=== PATIENT | female | born 1980 | race Two or more races ===

== ENCOUNTER 2016-09-15 18:55 | Emergency (ER) | payer MEDICAID ==
[~2016-09-15] VITALS: Ht 170.2 cm; Wt 88.0 kg
[2016-09-15 20:02] LABS: Urine Bilirubin Negative (Negative); Urine Blood Negative /uL (Negative); Urine Color Yellow (Yellow); Urine Glucose Normal (Normal); Urine Ketone Negative (Negative); Urine Mucus FEW (None Seen); Urine Nitrite Negative (Negative); Urine RBC <1 /hpf (0 - 4); Urine Squamous Epithelial Cell FEW /hpf (<5); Urine Urobilinogen Normal (Negative); Urine pH 6.5 (5.0-8.0)
[2016-09-15 20:29] LABS: Basophils # (auto) 0.1 uL; Basophils % (auto) 0.6 % (0.0-2.0); Eosinophils # (auto) 0.2 uL; Eosinophils % (auto) 1.8 % (0.0-7.0); Hematocrit 40.1 % (36.0-46.0); Lymphocytes # (auto) 4.2 uL; Lymphocytes % (auto) 44.7 % (10.0-50.0); Mean Corpuscular Hemoglobin 27.3 pg (28.0-32.0); Mean Corpuscular Hgb Conc. 32.3 g/dL (32.0-36.0); Mean Corpuscular Volume 84.3 fL (80.0-100.0); Mean Platelet Volume 8.1 fL (7.4-10.4); Monocytes # (auto) 0.6 uL; Monocytes % (auto) 6.9 % (0.0-12.0); Neutrophils # (auto) 4.3 uL; Platelet Count (auto) 305 10^3/uL (140-450); Red Cell Distribution Width 13.1 % (11.6-16.0); White Blood Cell 9.4 10^3/uL (4.4-10.8)
[2016-09-15 21:06] LABS: Albumin 3.6 g/dL (3.4-5.0); BUN/Creatinine Ratio 12.5; Calcium 8.8 mg/dL (8.5-10.1); Potassium 3.8 mmol/L (3.5-5.1)
[2016-09-15 21:08] LABS: Bilirubin, Total 0.2 mg/dL (0.2-1.0); Total Protein 7.2 g/dL (6.4-8.2)
[2016-09-16] MEDS ORDERED: ONDANSETRON HCL 4 MG/2 ML VIAL IV ONE (03:30)
[2016-09-16] MEDS ORDERED: MORPHINE SULFATE 4 MG/ML SYRG IV ONE (03:30)
[2016-09-16] MEDS ORDERED: SODIUM CHLORIDE 0.9% 1,000 ML IV ONE (04:00)
[2016-09-16 05:34] VITALS: BP 100/71
== END 2016-09-16 06:22 | disposition home or self-care (01) ==
LOC: ER 19:07
DX: K29.70 Gastritis, unspecified, without bleeding (principal); J45.909 Unspecified asthma, uncomplicated; M54.9 Dorsalgia, unspecified; G89.29 Other chronic pain; Z90.49 Acquired absence of other specified parts of digestive tract
CPT/HCPCS: 36415; 74176; 80053; 81001; 82150; 83690; 85025; 96361; 96374; 96375; 99285; J2270; J2405

== ENCOUNTER 2016-10-28 19:50 | Emergency (ER) | payer MEDICAID ==
[~2016-10-28] VITALS: Ht 170.2 cm; Wt 88.0 kg
[2016-10-28 21:00] LABS: Basophils # (auto) 0 uL; Basophils % (auto) 0.5 % (0.0-2.0); Eosinophils # (auto) 0.2 uL; Eosinophils % (auto) 2.2 % (0.0-7.0); Hematocrit 37.4 % (36.0-46.0); Hemoglobin 12.6 g/dL (12.2-16.2); Lymphocytes % (auto) 39.6 % (10.0-50.0); Mean Corpuscular Hemoglobin 27.9 pg (28.0-32.0); Mean Corpuscular Hgb Conc. 33.5 g/dL (32.0-36.0); Mean Corpuscular Volume 83.2 fL (80.0-100.0); Mean Platelet Volume 8.1 fL (7.4-10.4); Monocytes # (auto) 0.5 uL; Monocytes % (auto) 6.5 % (0.0-12.0); Neutrophils # (auto) 3.8 uL; Neutrophils % (auto) 51.2 % (37.0-80.0); Platelet Count (auto) 288 10^3/uL (140-450); Red Cell Distribution Width 13.3 % (11.6-16.0); White Blood Cell 7.5 10^3/uL (4.4-10.8)
[2016-10-28 21:23] LABS: INR 1.04 (0.9-1.15); Partial Thromboplastin Time 26.6 sec (22.64-33.71); Prothrombin Time 10.7 sec (9.37-12.3)
[2016-10-28 21:34] LABS: Urine Bilirubin Negative (Negative); Urine Color Yellow (Yellow); Urine Glucose Normal (Normal); Urine Ketone Negative (Negative); Urine Nitrite Negative (Negative); Urine RBC 24 /hpf (0 - 4); Urine Squamous Epithelial Cell FEW /hpf (<5); Urine Urobilinogen Normal (Negative)
[2016-10-28 21:36] LABS: Albumin 3.7 g/dL (3.4-5.0); Alkaline Phosphatase 106 U/L (45-117); Anion Gap 11 (5-15); Aspartate Aminotransferase 14 U/L (15-37); BUN/Creatinine Ratio 17.9; Bilirubin, Total 0.2 mg/dL (0.2-1.0); Blood Urea Nitrogen 12 mg/dL (7-18); Calcium 8.9 mg/dL (8.5-10.1); Carbon Dioxide 26 mmol/L (21-32); Chloride 109 mmol/L (98-107); GFR African American 129 mL/min; GFR Non-African American 106 mL/min; Glucose 103 mg/dL (74-106); Potassium 3.7 mmol/L (3.5-5.1); Sodium 146 mmol/L (136-145); Total Protein 7.1 g/dL (6.4-8.2)
[2016-10-28 21:45] LABS: Urine Blood 2+ /uL (Negative)
[2016-10-29] MEDS ORDERED: ASPirin 81 mg TAB PO ONE (07:00)
[2016-10-29 08:07] VITALS: BP 109/70
[2016-10-29] MEDS ORDERED: METOCLOPRAMIDE HCL 5MG/ml INJ 2ml VIAL IV ONE (08:15)
[2016-10-29] MEDS ORDERED: NALBUPHINE HCL 10 MG/1ml INJECTION IV ONE (08:15)
== END 2016-10-29 08:46 | disposition home or self-care (01) ==
LOC: ER 20:08
DX: R07.89 Other chest pain (principal); J45.909 Unspecified asthma, uncomplicated; E07.9 Disorder of thyroid, unspecified; R42 Dizziness and giddiness; Z79.82 Long term (current) use of aspirin; G89.29 Other chronic pain
CPT/HCPCS: 36415; 71020; 80053; 81001; 81025; 84443; 84484; 85025; 85610; 85730; 93005; 94761; 96374; 96375; 99285; G0434; J2300; J2765

== ENCOUNTER 2017-04-16 21:32 | Emergency (ER) | payer MEDICAID ==
[~2017-04-16] VITALS: Ht 170.2 cm; Wt 88.0 kg
[2017-04-16] MEDS ORDERED: IPRATROPIUM BROM 0.5 MG/2.5ML INH SOL NEB ONE (21:45)
[2017-04-16] MEDS ORDERED: ALBUTEROL SULF 2.5 MG/0.5ML(0.5%) NEB SOLN NEB ONE ×2 (21:45→22:30)
[2017-04-16 22:20] LABS: Basophils # (auto) 0.1 uL; Basophils % (auto) 0.4 % (0.0-2.0); CONDITION Y; Eosinophils # (auto) 0.1 uL; Eosinophils % (auto) 1.2 % (0.0-7.0); Hematocrit 41.7 % (36.0-46.0); Hemoglobin 14.2 g/dL (12.2-16.2); Lymphocytes # (auto) 4.2 uL; Lymphocytes % (auto) 33.6 % (10.0-50.0); Mean Corpuscular Hemoglobin 28.5 pg (28.0-32.0); Mean Corpuscular Volume 83.8 fL (80.0-100.0); Mean Platelet Volume 8.2 fL (7.4-10.4); Monocytes # (auto) 0.7 uL; Monocytes % (auto) 5.3 % (0.0-12.0); Neutrophils # (auto) 7.4 uL; Neutrophils % (auto) 59.5 % (37.0-80.0); Platelet Count (auto) 331 10^3/uL (140-450); Red Cell Distribution Width 13.9 % (11.6-16.0); White Blood Cell 12.4 10^3/uL (4.4-10.8)
[2017-04-16] MEDS ORDERED: DEXAMETHASONE 4 MG TAB PO ONE (22:30)
[2017-04-16 22:39] LABS: BUN/Creatinine Ratio 13.3; Calcium 8.9 mg/dL (8.5-10.1); Potassium 3.8 mmol/L (3.5-5.1)
[2017-04-16 22:42] LABS: Bilirubin, Total 0.2 mg/dL (0.2-1.0); Total Protein 7.9 g/dL (6.4-8.2)
[2017-04-17 01:17] VITALS: BP 126/84
== END 2017-04-17 01:28 | disposition home or self-care (01) ==
LOC: ER 21:34
DX: J45.909 Unspecified asthma, uncomplicated (principal); Z90.49 Acquired absence of other specified parts of digestive tract; E07.9 Disorder of thyroid, unspecified
CPT/HCPCS: 36415; 71020; 80053; 84702; 85025; 94640; 99285; J8540

== ENCOUNTER 2023-03-22 14:35 | Inpatient (IN) | payer MEDICAID ==
[~2023-03-22] VITALS: Ht 157.5 cm; Wt 91.0 kg
[~2023-03-22 14:35] MED LIST: AZIT-74 PO; CYCL-614 PO; DOCU-94 PO; DUPI1INJ SC; EPIN0.3I24 IM; ERGO1CAP12 PO; FAMO40TA7 PO; FERR325T20 PO; FLUT250M2 INH; GABA-1250 PO; IPR002IS NEB; LIDO1PAD55 TOP; MONT-8 PO; PRED20TA2 PO; SENN-105 PO
[2023-03-22] MEDS ORDERED: ALBUTEROL SULF 2.5 MG/0.5ML(0.5%) NEB SOLN ONE (14:53)
[2023-03-22] MEDS ORDERED: SODIUM CHLORIDE 0.9% 1,000 ML IV ONE (15:00)
[2023-03-22] MEDS ORDERED: methylPREDNISolone SOD SUCC 40 MG/ML VL IV ONE (15:00)
[2023-03-22] MEDS ORDERED: ALBUTEROL SULF 2.5 MG/0.5ML(0.5%) NEB SOLN NEB ONE ×2 (15:00→22:30)
[2023-03-22] MEDS ORDERED: IPRATROPIUM BROM 0.5 MG/2.5ML INH SOL NEB ONE (15:00)
[2023-03-22] MEDS ORDERED: FAMOTIDINE (10MG/ML) 2ML VL IV ONE (15:00)
[2023-03-22] MEDS ORDERED: BUDESONIDE (INHALATION) 0.5 MG/2 ML NEB NEB ONE (15:00)
[2023-03-22] MEDS: MAGNESIUM SULFATE 1GM/100ML 100 ML IV SCH ×2 (15:00→16:00)
[2023-03-22] MEDS ORDERED: DexAMETHasone SOD PHOS 10MG/1ML VIAL INJ IV ONE (15:00)
[2023-03-22 15:20] LABS: Base Excess 0.3 mmol/L (-2.0-2.0)
[2023-03-22 15:36] VITALS: PULSE 137; RESP 27; O2SAT 100
[2023-03-22 16:34] LABS: INR 1.08 (0.9-1.15); Partial Thromboplastin Time < 20.0 SEC (24.5-34.5); Prothrombin Time 11.3 sec (9.3-11.8)
[2023-03-22] MEDS ORDERED: MAGNESIUM SULFATE 1GM/100ML 100 ML IV ONE (17:15)
[2023-03-22 18:07] VITALS: BP 137/80; PULSE 122; O2SAT 100
[2023-03-22] MEDS ORDERED: MORPHINE SULFATE INJ 2 MG/ml SYRG IV PRN (18:30)
[2023-03-22] MEDS ORDERED: DOCUSATE SOD 100 MG CAP PO PRN (18:30)
[2023-03-22] MEDS ORDERED: NITROGLYCERIN 0.4 MG SL TAB SL PRN (18:30)
[2023-03-22] MEDS ORDERED: ACETAMINOPHEN 325 MG TAB PO PRN (18:30)
[2023-03-22] MEDS ORDERED: OXYCODONE W/ ACETAMINOPHEN 5/325MG TABLET PO PRN (18:30)
[2023-03-22] MEDS ORDERED: IPRATROPIUM BROM 0.5 MG/2.5ML INH SOL NEB PRN (18:30)
[2023-03-22] MEDS ORDERED: ALBUTEROL SULF 2.5 MG/0.5ML(0.5%) NEB SOLN NEB PRN (18:30)
[2023-03-22 19:15] LABS: Basophils # (auto) 0 10 ^3/uL (0-0.2); Eosinophils # (auto) 0 10 ^3/uL (0-0.8); Monocytes # (auto) 0.1 10 ^3/uL (0-1.3); Neutrophils # (auto) 7.8 10 ^3/uL (1.6-8.6); Neutrophils % (auto) 95.7 % (37.0-80.0)
[2023-03-22 19:18] LABS: Basophils % (auto) 0.2 % (0.0-2.0); Hematocrit 36.8 % (36.0-46.0); Hemoglobin 11.8 g/dL (12.2-16.2); Lymphocytes # (auto) 0.3 10 ^3/uL (0.4-5.4); Lymphocytes % (auto) 3.2 % (10.0-50.0); Mean Corpuscular Hemoglobin 26.4 pg (28.0-32.0); Mean Corpuscular Hgb Conc. 32.2 g/dL (32.0-36.0); Mean Corpuscular Volume 81.8 fL (80.0-100.0); Monocytes % (auto) 0.9 % (0.0-12.0); Nucleated Red Blood Cells % 0.1 %; Red Blood Cells 4.49 10^6/uL (4.0-5.20); Red Cell Distribution Width 17.1 % (11.8-14.3); White Blood Cell 8.1 10^3/uL (4.4-10.8)
[2023-03-22 19:30] VITALS: PULSE 123; RESP 25; O2SAT 100
[2023-03-22 19:39] LABS: Calcium 8.1 mg/dL (8.5-10.1); Potassium 3.2 mmol/L (3.5-5.1)
[2023-03-22 19:42] LABS: Albumin 3.5 g/dL (3.4-5.0); BUN/Creatinine Ratio 7.5 (10.0-20.0)
[2023-03-22 19:45] LABS: Bilirubin, Total 0.2 mg/dL (0.2-1.0); Total Protein 6.7 g/dL (6.4-8.2)
[2023-03-22] MEDS ORDERED: IOHEXOL 350 MG/ML 100ML IJ ONE (20:07)
[2023-03-22 20:11] VITALS: BP 112/76; PULSE 115; O2SAT 100
[2023-03-22 20:44] VITALS: BP 112/76; PULSE 115; RESP 22; TEMP 98.4; O2SAT 100
[2023-03-22] MEDS ORDERED: ERGOCALCIFEROL 50,000 UNIT(1.25MG) CAP PO SCH (21:30)
[2023-03-22] MEDS ORDERED: POTASSIUM CHL 20 Meq TABLET PO ONE (21:30)
[2023-03-22] MEDS ORDERED: ALPRAZolam 0.25 MG TAB PO PRN (21:45)
[2023-03-22] MEDS: FLUTICASONE SALMETEROL IN SCH (22:00)
[2023-03-22 22:11] VITALS: BP 131/84; PULSE 106; O2SAT 100
[2023-03-22] MEDS: CYCLOBENZAPRINE HCL 10 MG TAB PO SCH (22:43)
[2023-03-22] MEDS: GABAPENTIN 300 MG CAP PO SCH (22:43)
[2023-03-22] MEDS: SODIUM CHLOR 0.9% PF (SALINE LOCK) 10ML VIAL/SYR IV SCH (22:44)
[2023-03-23] VITALS (17 sets, daily range): BP systolic 104–129; BP diastolic 59–82; PULSE 82–112; RESP 11–25; TEMP 97.7–98.4; O2SAT 94–100
[2023-03-23] MEDS: OXYCODONE W/ ACETAMINOPHEN 5/325MG TABLET PO PRN ×3 (04:54→21:24)
[2023-03-23] MEDS: SODIUM CHLOR 0.9% PF (SALINE LOCK) 10ML VIAL/SYR IV SCH ×3 (06:07→21:19)
[2023-03-23 06:39] LABS: Potassium 4.6 mmol/L (3.5-5.1)
[2023-03-23 06:48] LABS: Albumin 3.3 g/dL (3.4-5.0); BUN/Creatinine Ratio 8.2 (10.0-20.0); Bilirubin, Total 0.3 mg/dL (0.2-1.0); Calcium 8.2 mg/dL (8.5-10.1)
[2023-03-23] MEDS: FAMOTIDINE 20 MG TAB PO SCH (09:58)
[2023-03-23] MEDS: GABAPENTIN 300 MG CAP PO SCH ×2 (09:59→21:18)
[2023-03-23] MEDS: MONTELUKAST SODIUM 10 MG TAB PO SCH (09:59)
[2023-03-23] MEDS: LIDOCAINE 5% TOPICAL PATCH TOP SCH (09:59)
[2023-03-23] MEDS: CYCLOBENZAPRINE HCL 10 MG TAB PO SCH ×2 (10:00→21:18)
[2023-03-23] MEDS: FLUTICASONE SALMETEROL IN SCH ×2 (10:00→21:19)
[2023-03-23 10:51] LABS: Basophils # (auto) 0 10 ^3/uL (0-0.2); Basophils % (auto) 0.1 % (0.0-2.0); Eosinophils # (auto) 0 10 ^3/uL (0-0.8); Hemoglobin 11.3 g/dL (12.2-16.2); Neutrophils # (auto) 7.3 10 ^3/uL (1.6-8.6); White Blood Cell 8.8 10^3/uL (4.4-10.8)
[2023-03-23 10:53] LABS: Hematocrit 34.8 % (36.0-46.0); Lymphocytes % (auto) 11.3 % (10.0-50.0); Mean Corpuscular Hemoglobin 26.3 pg (28.0-32.0); Mean Corpuscular Hgb Conc. 32.4 g/dL (32.0-36.0); Mean Corpuscular Volume 81.2 fL (80.0-100.0); Monocytes # (auto) 0.5 10 ^3/uL (0-1.3); Neutrophils % (auto) 82.6 % (37.0-80.0); Red Blood Cells 4.28 10^6/uL (4.0-5.20); Red Cell Distribution Width 17.6 % (11.8-14.3)
[2023-03-23] MEDS ORDERED: methylPREDNISolone SOD SUCC 125 MG/2 ML VL IV ONE (11:00)
[2023-03-23] MEDS: cefTRIAXone 1GM/50ML D5W 50 ML IV SCH ×2 (12:51→15:04)
[2023-03-23] MEDS: AZITHROMYCIN 500MG/ 250ML 250 ML IV SCH ×2 (13:00→15:05)
[2023-03-23 15:53] LABS: Urine Bacteria NONE SEEN /hpf (None Seen); Urine Blood Negative /uL (Negative); Urine Clarity Clear (Clear); Urine Color Yellow (Yellow); Urine Mucus FEW (None Seen); Urine Protein, UAD TRACE (Negative); Urine Urobilinogen Normal (Negative); Urine WBC <1 /hpf (0 - 5)
[2023-03-23 15:55] LABS: Urine Specific Gravity > 1.050 (1.001-1.035)
[2023-03-23] MEDS: methylPREDNISolone SOD SUCC 125 MG/2 ML VL IV SCH (22:00)
[2023-03-24] VITALS (8 sets, daily range): BP systolic 115–142; BP diastolic 73–91; PULSE 54–103; RESP 16–18; TEMP 97.6–98.4; O2SAT 94–100
[2023-03-24] MEDS: SODIUM CHLOR 0.9% PF (SALINE LOCK) 10ML VIAL/SYR IV SCH ×3 (06:00→21:53)
[2023-03-24 07:17] LABS: Basophils # (auto) 0 10 ^3/uL (0-0.2); Basophils % (auto) 0.2 % (0.0-2.0); Eosinophils # (auto) 0 10 ^3/uL (0-0.8); Hemoglobin 11.5 g/dL (12.2-16.2); Lymphocytes # (auto) 1.3 10 ^3/uL (0.4-5.4); Lymphocytes % (auto) 12.8 % (10.0-50.0); Monocytes # (auto) 0.3 10 ^3/uL (0-1.3); Neutrophils # (auto) 8.6 10 ^3/uL (1.6-8.6); Nucleated Red Blood Cells % 0.1 %
[2023-03-24 07:19] LABS: Hematocrit 35.1 % (36.0-46.0); Mean Corpuscular Hemoglobin 26.6 pg (28.0-32.0); Mean Corpuscular Hgb Conc. 32.6 g/dL (32.0-36.0); Mean Corpuscular Volume 81.6 fL (80.0-100.0); Monocytes % (auto) 2.8 % (0.0-12.0); Neutrophils % (auto) 84.2 % (37.0-80.0); Red Blood Cells 4.31 10^6/uL (4.0-5.20); Red Cell Distribution Width 17.7 % (11.8-14.3); White Blood Cell 10.3 10^3/uL (4.4-10.8)
[2023-03-24 07:26] LABS: BUN/Creatinine Ratio 18.5 (10.0-20.0); Calcium 8.8 mg/dL (8.5-10.1); Potassium 4.3 mmol/L (3.5-5.1)
[2023-03-24] MEDS: FLUTICASONE SALMETEROL IN SCH (10:00)
[2023-03-24] MEDS: methylPREDNISolone SOD SUCC 125 MG/2 ML VL IV SCH ×2 (10:06→21:55)
[2023-03-24] MEDS: GABAPENTIN 300 MG CAP PO SCH ×2 (10:07→21:54)
[2023-03-24] MEDS: FAMOTIDINE 20 MG TAB PO SCH (10:07)
[2023-03-24] MEDS: CYCLOBENZAPRINE HCL 10 MG TAB PO SCH ×2 (10:08→21:53)
[2023-03-24] MEDS: LIDOCAINE 5% TOPICAL PATCH TOP SCH (10:08)
[2023-03-24] MEDS: MONTELUKAST SODIUM 10 MG TAB PO SCH (10:08)
[2023-03-24] MEDS: OXYCODONE W/ ACETAMINOPHEN 5/325MG TABLET PO PRN ×2 (10:26→21:54)
[2023-03-24] MEDS ORDERED: cefTRIAXone 1GM/50ML D5W 50 ML IV ONE (10:30)
[2023-03-24] MEDS ORDERED: AZITHROMYCIN 500MG/ 250ML 250 ML IV ONE (11:30)
[2023-03-24 14:04] LABS: Basophils # (auto) 0 10 ^3/uL (0-0.2); Eosinophils # (auto) 0 10 ^3/uL (0-0.8); Lymphocytes # (auto) 1.2 10 ^3/uL (0.4-5.4); Mean Corpuscular Hgb Conc. 31.8 g/dL (32.0-36.0); Monocytes # (auto) 0.2 10 ^3/uL (0-1.3); Neutrophils # (auto) 10.4 10 ^3/uL (1.6-8.6)
[2023-03-24 14:06] LABS: Hematocrit 37.7 % (36.0-46.0); Mean Corpuscular Hemoglobin 26.2 pg (28.0-32.0); Mean Corpuscular Volume 82.5 fL (80.0-100.0); Monocytes % (auto) 1.5 % (0.0-12.0); Neutrophils % (auto) 88.5 % (37.0-80.0); Nucleated Red Blood Cells % 0.1 %; Red Blood Cells 4.57 10^6/uL (4.0-5.20); Red Cell Distribution Width 17.4 % (11.8-14.3); White Blood Cell 11.7 10^3/uL (4.4-10.8)
[2023-03-25] VITALS (7 sets, daily range): BP systolic 121–140; BP diastolic 72–94; PULSE 47–65; RESP 17–18; TEMP 36.7; O2SAT 92–100
[2023-03-25 05:18] LABS: BUN/Creatinine Ratio 22.7 (10.0-20.0); Calcium 8.4 mg/dL (8.5-10.1); Potassium 4.2 mmol/L (3.5-5.1)
[2023-03-25] MEDS: SODIUM CHLOR 0.9% PF (SALINE LOCK) 10ML VIAL/SYR IV SCH ×2 (06:00→13:41)
[2023-03-25] MEDS ORDERED: cefTRIAXone 1GM/50ML D5W 50 ML IV SCH (09:00)
[2023-03-25] MEDS: FAMOTIDINE 20 MG TAB PO SCH (09:53)
[2023-03-25] MEDS: MONTELUKAST SODIUM 10 MG TAB PO SCH (09:53)
[2023-03-25] MEDS: LIDOCAINE 5% TOPICAL PATCH TOP SCH (09:53)
[2023-03-25] MEDS: GABAPENTIN 300 MG CAP PO SCH (09:53)
[2023-03-25] MEDS: CYCLOBENZAPRINE HCL 10 MG TAB PO SCH (09:54)
[2023-03-25] MEDS: methylPREDNISolone SOD SUCC 125 MG/2 ML VL IV SCH (09:57)
[2023-03-25] MEDS: OXYCODONE W/ ACETAMINOPHEN 5/325MG TABLET PO PRN (09:58)
[2023-03-25] MEDS ORDERED: AZITHROMYCIN 500MG/ 250ML 250 ML IV SCH (10:00)
[2023-03-25] MEDS ORDERED: PRED20TA2 PO (11:07)
[2023-03-25] MEDS ORDERED: AMOX500T86 PO (11:08)
== END 2023-03-25 16:00 | disposition home or self-care (01) | DRG 139 ==
LOC: ER 14:35 → TELE 18:34 → DOU IN ICU 03-23 06:36 → CENTRAL 03-23 13:57 → TELE-CENTR 03-23 14:14
PROVIDERS: ADMIT Internal Medicine Pulmonary Disease; ATTEND Internal Medicine Pulmonary Disease
PROC: 5A09357 Assistance with Respiratory Ventilation, Less than 24 Consecutive Hours, Continuous Positive Airway Pressure (ICD-10-PCS; principal; 2023-03-22)
DX: J18.9 Pneumonia, unspecified organism (principal); J96.01 Acute respiratory failure with hypoxia; J45.902 Unspecified asthma with status asthmaticus; E03.9 Hypothyroidism, unspecified; E87.6 Hypokalemia; E11.65 Type 2 diabetes mellitus with hyperglycemia; E66.01 Morbid (severe) obesity due to excess calories; G89.4 Chronic pain syndrome; Z68.36 Body mass index [BMI] 36.0-36.9, adult; Z90.49 Acquired absence of other specified parts of digestive tract
CPT/HCPCS: 36415; 36600; 71045; 71275; 80048; 80053; 81001; 82805; 83735; 83880; 84484; 85025; 85379; 85610; 85730; 87081; 94640; 94644; 94660; 96361; 96365; 96366; 96375; G0378; J0696; J1100; J3490

== ENCOUNTER 2023-04-10 18:14 | Inpatient (IN) | payer MEDICAID ==
[~2023-04-10] VITALS: Ht 172.7 cm; Wt 91.9 kg
[2023-04-10] VITALS (10 sets, daily range): BP systolic 115; BP diastolic 77; PULSE 112–131; RESP 20–22; O2SAT 97–100
[~2023-04-10 18:14] MED LIST changes: +AMOX500T86 PO; -AZIT-74 PO
[2023-04-10] MEDS ORDERED: DexAMETHasone SOD PHOS 10MG/1ML VIAL INJ IV ONE (18:15)
[2023-04-10] MEDS ORDERED: IPRATROPIUM BROM 0.5 MG/2.5ML INH SOL HHN ONE (18:15)
[2023-04-10] MEDS ORDERED: ALBUTEROL SULF 2.5 MG/0.5ML(0.5%) NEB SOLN HHN ONE (18:15)
[2023-04-10] MEDS ORDERED: MAGNESIUM SULFATE 1GM/100ML 100 ML IV ONE (18:15)
[2023-04-10 18:43] LABS: Basophils # (auto) 0.1 10 ^3/uL (0-0.2); Basophils % (auto) 0.5 % (0.0-2.0); Eosinophils # (auto) 0.1 10 ^3/uL (0-0.8); Lymphocytes % (auto) 48.3 % (10.0-50.0); Mean Corpuscular Hemoglobin 26.4 pg (28.0-32.0); Nucleated Red Blood Cells % 0.1 %
[2023-04-10 18:45] LABS: Eosinophils % (auto) 0.5 % (0.0-7.0); Hematocrit 37.1 % (36.0-46.0); Lymphocytes # (auto) 6.9 10 ^3/uL (0.4-5.4); Mean Corpuscular Hgb Conc. 32.4 g/dL (32.0-36.0); Mean Corpuscular Volume 81.5 fL (80.0-100.0); Monocytes # (auto) 0.9 10 ^3/uL (0-1.3); Monocytes % (auto) 6.6 % (0.0-12.0); Neutrophils # (auto) 6.3 10 ^3/uL (1.6-8.6); Neutrophils % (auto) 44.1 % (37.0-80.0); Red Blood Cells 4.56 10^6/uL (4.0-5.20); Red Cell Distribution Width 18.2 % (11.8-14.3); White Blood Cell 14.2 10^3/uL (4.4-10.8)
[2023-04-10 19:03] LABS: Alanine Aminotransferase 31 U/L (7-40); Albumin 4.4 g/dL (3.2-4.8); Alkaline Phosphatase 92 U/L (46-116); Anion Gap 12.5 (5-15); Aspartate Aminotransferase 31 U/L (13-40); BUN/Creatinine Ratio 7.4 (10.0-20.0); Bilirubin, Total 0.3 mg/dL (0.2-1.0); Blood Urea Nitrogen 6 mg/dL (9-23); Calcium 9.2 mg/dL (8.7-10.4); Carbon Dioxide 20.5 mmol/L (20-30); Chloride 106 mmol/L (98-107); Glucose 147 mg/dL (74-106); Sodium 139 mmol/L (136-145)
[2023-04-10 19:04] LABS: Total Protein 6.7 g/dL (5.7-8.2)
[2023-04-10 19:17] LABS: Potassium 2.7 mmol/L (3.5-5.1)
[2023-04-10 19:53] LABS: Base Excess 0.3 mmol/L (-2.0-2.0)
[2023-04-10 20:15] LABS: COVID19 ANTIGEN SOFIA FIA NEGATIVE (NEGATIVE)
[2023-04-10] MEDS ORDERED: POTASSIUM CHL 20MEQ/100ML 100 ML IV ONE (20:15)
[2023-04-10] MEDS ORDERED: ALBUTEROL SULF 2.5 MG/0.5ML(0.5%) NEB SOLN NEB PRN (21:15)
[2023-04-10] MEDS ORDERED: MORPHINE SULFATE INJ 2 MG/ml SYRG IV PRN (21:15)
[2023-04-10] MEDS ORDERED: ONDANSETRON HCL 4 MG/2 ML VIAL IV PRN (21:15)
[2023-04-10] MEDS ORDERED: NITROGLYCERIN 0.4 MG SL TAB SL PRN (21:15)
[2023-04-10] MEDS ORDERED: ACETAMINOPHEN 325 MG TAB PO PRN (21:15)
[2023-04-10] MEDS ORDERED: IPRATROPIUM BROM 0.5 MG/2.5ML INH SOL NEB PRN (21:15)
[2023-04-10] MEDS ORDERED: HYDROcodone-ACET 10/325MG TAB PO ONE (21:15)
[2023-04-10] MEDS: methylPREDNISolone SOD SUCC 40 MG/ML VL IV SCH (22:51)
[2023-04-10] MEDS ORDERED: EPINEPHrine HCL 0.5 ML NEB NEB ONE (23:15)
[2023-04-11] VITALS (24 sets, daily range): BP systolic 96–153; BP diastolic 50–92; PULSE 87–150; RESP 14–31; TEMP 97.4–98.7; O2SAT 95–100
[2023-04-11 00:09] LABS: Urine WBC None Seen /hpf (0 - 5)
[2023-04-11] MEDS ORDERED: IPRATROPIUM BROM 0.5 MG/2.5ML INH SOL NEB PRN (00:30)
[2023-04-11] MEDS ORDERED: ALBUTEROL SULF 2.5 MG/0.5ML(0.5%) NEB SOLN NEB PRN ×2 (00:30→18:15)
[2023-04-11 00:31] LABS: Urine Bacteria NONE SEEN /hpf (None Seen); Urine Blood Negative /uL (Negative); Urine Clarity Clear (Clear); Urine Color Colorless (Yellow); Urine Protein, UAD Negative (Negative); Urine Specific Gravity 1.013 (1.001-1.035); Urine Urobilinogen Normal (Negative)
[2023-04-11] MEDS: HYDROcodone-ACET 5/325MG TAB PO PRN ×2 (03:00→09:17)
[2023-04-11] MEDS: TEMAZEPAM 15 MG CAP PO PRN ×2 (03:01→21:37)
[2023-04-11 05:49] LABS: Basophils # (auto) 0 10 ^3/uL (0-0.2); Basophils % (auto) 0.1 % (0.0-2.0); Eosinophils # (auto) 0 10 ^3/uL (0-0.8); Hematocrit 35.5 % (36.0-46.0); Hemoglobin 11.5 g/dL (12.2-16.2); Lymphocytes # (auto) 0.6 10 ^3/uL (0.4-5.4); Lymphocytes % (auto) 6.9 % (10.0-50.0); Mean Corpuscular Hemoglobin 27.2 pg (28.0-32.0); Mean Corpuscular Hgb Conc. 32.3 g/dL (32.0-36.0); Mean Corpuscular Volume 83.9 fL (80.0-100.0); Monocytes # (auto) 0.1 10 ^3/uL (0-1.3); Neutrophils # (auto) 8.6 10 ^3/uL (1.6-8.6); Nucleated Red Blood Cells % 0.2 %; Red Blood Cells 4.23 10^6/uL (4.0-5.20); Red Cell Distribution Width 18.1 % (11.8-14.3); White Blood Cell 9.3 10^3/uL (4.4-10.8)
[2023-04-11 05:58] LABS: Alanine Aminotransferase 37 U/L (7-40); Albumin 4.3 g/dL (3.2-4.8); Alkaline Phosphatase 86 U/L (46-116); Anion Gap 13.5 (5-15); Aspartate Aminotransferase 25 U/L (13-40); BUN/Creatinine Ratio 6.9 (10.0-20.0); Blood Urea Nitrogen 5 mg/dL (9-23); Calcium 9.1 mg/dL (8.7-10.4); Carbon Dioxide 15.5 mmol/L (20-30); Chloride 109 mmol/L (98-107); Glucose 239 mg/dL (74-106); Potassium 4.1 mmol/L (3.5-5.1); Sodium 138 mmol/L (136-145)
[2023-04-11 05:59] LABS: Bilirubin, Total 0.2 mg/dL (0.2-1.0); Total Protein 6.6 g/dL (5.7-8.2)
[2023-04-11] MEDS: PANTOPRAZOLE 40 MG TAB PO SCH (09:17)
[2023-04-11] MEDS: methylPREDNISolone SOD SUCC 40 MG/ML VL IV SCH ×2 (09:18→21:37)
[2023-04-11] MEDS ORDERED: PERCOT PO (09:29)
[2023-04-11] MEDS: OXYCODONE W/ ACETAMINOPHEN 5/325MG TABLET PO PRN ×3 (14:05→23:12)
[2023-04-11] MEDS ORDERED: methylPREDNISolone SOD SUCC 40 MG/ML VL IV ONE (15:00)
[2023-04-11] MEDS: MAGNESIUM SULFATE 1GM/100ML 100 ML IV SCH ×2 (15:52→18:36)
[2023-04-11] MEDS ORDERED: LEVALBUTEROL HCL 1.25 MG/3 ML NEB NEB SCH (18:00)
[2023-04-11] MEDS ORDERED: IPRATROPIUM BROM 0.5 MG/2.5ML INH SOL NEB SCH (18:00)
[2023-04-11] MEDS: LEVALBUTEROL HCL 1.25 MG/3 ML NEB NEB SCH (18:15)
[2023-04-11] MEDS: IPRATROPIUM BROM 0.5 MG/2.5ML INH SOL NEB SCH (18:15)
[2023-04-12] VITALS (22 sets, daily range): BP systolic 86–131; BP diastolic 33–82; PULSE 62–122; RESP 18–28; TEMP 97.4–98.4; O2SAT 95–100
[2023-04-12] MEDS: IPRATROPIUM BROM 0.5 MG/2.5ML INH SOL NEB SCH ×4 (00:05→18:41)
[2023-04-12] MEDS: LEVALBUTEROL HCL 1.25 MG/3 ML NEB NEB SCH ×4 (00:06→18:41)
[2023-04-12 05:55] LABS: Basophils # (auto) 0 10 ^3/uL (0-0.2); Eosinophils # (auto) 0 10 ^3/uL (0-0.8); Hematocrit 32.5 % (36.0-46.0); Hemoglobin 10.8 g/dL (12.2-16.2); Lymphocytes # (auto) 1.1 10 ^3/uL (0.4-5.4); Lymphocytes % (auto) 7.2 % (10.0-50.0); Mean Corpuscular Hemoglobin 27.1 pg (28.0-32.0); Mean Corpuscular Hgb Conc. 33.1 g/dL (32.0-36.0); Mean Corpuscular Volume 81.6 fL (80.0-100.0); Monocytes # (auto) 0.3 10 ^3/uL (0-1.3); Monocytes % (auto) 1.9 % (0.0-12.0); Neutrophils # (auto) 13.9 10 ^3/uL (1.6-8.6); Neutrophils % (auto) 90.9 % (37.0-80.0); Red Blood Cells 3.99 10^6/uL (4.0-5.20); Red Cell Distribution Width 18.7 % (11.8-14.3); White Blood Cell 15.3 10^3/uL (4.4-10.8)
[2023-04-12 05:59] LABS: Chloride 108 mmol/L (98-107); Potassium 4.1 mmol/L (3.5-5.1); Sodium 138 mmol/L (136-145)
[2023-04-12 06:00] LABS: Anion Gap 6.7 (5-15); Calcium 8.8 mg/dL (8.7-10.4); Carbon Dioxide 23.3 mmol/L (20-30)
[2023-04-12 06:05] LABS: Blood Urea Nitrogen 7 mg/dL (9-23); Glucose 151 mg/dL (74-106)
[2023-04-12] MEDS: methylPREDNISolone SOD SUCC 40 MG/ML VL IV SCH ×3 (06:06→22:17)
[2023-04-12] MEDS: OXYCODONE W/ ACETAMINOPHEN 5/325MG TABLET PO PRN ×3 (08:23→20:47)
[2023-04-12] MEDS: PANTOPRAZOLE 40 MG TAB PO SCH (08:25)
[2023-04-12 10:15] LABS: BUN/Creatinine Ratio 11.7 (10.0-20.0)
[2023-04-12] MEDS: TEMAZEPAM 15 MG CAP PO PRN (22:17)
[2023-04-13] VITALS (16 sets, daily range): BP systolic 111–127; BP diastolic 61–79; PULSE 59–112; RESP 16–20; TEMP 97.7–98.7; O2SAT 92–100
[2023-04-13] MEDS: LEVALBUTEROL HCL 1.25 MG/3 ML NEB NEB SCH ×4 (00:37→19:11)
[2023-04-13] MEDS: OXYCODONE W/ ACETAMINOPHEN 5/325MG TABLET PO PRN ×4 (00:37→18:55)
[2023-04-13] MEDS: IPRATROPIUM BROM 0.5 MG/2.5ML INH SOL NEB SCH ×4 (00:37→19:11)
[2023-04-13] MEDS: methylPREDNISolone SOD SUCC 40 MG/ML VL IV SCH ×2 (06:07→21:18)
[2023-04-13] MEDS: PANTOPRAZOLE 40 MG TAB PO SCH (09:16)
[2023-04-13 09:28] LABS: Basophils # (auto) 0 10 ^3/uL (0-0.2); Basophils % (auto) 0.1 % (0.0-2.0); Eosinophils # (auto) 0 10 ^3/uL (0-0.8); Monocytes # (auto) 0.2 10 ^3/uL (0-1.3); Nucleated Red Blood Cells % 0.1 %
[2023-04-13 09:30] LABS: Hematocrit 37.6 % (36.0-46.0); Hemoglobin 11.9 g/dL (12.2-16.2); Lymphocytes % (auto) 6.7 % (10.0-50.0); Mean Corpuscular Hemoglobin 26.5 pg (28.0-32.0); Mean Corpuscular Hgb Conc. 31.8 g/dL (32.0-36.0); Mean Corpuscular Volume 83.3 fL (80.0-100.0); Monocytes % (auto) 1.6 % (0.0-12.0); Neutrophils # (auto) 13.8 10 ^3/uL (1.6-8.6); Neutrophils % (auto) 91.6 % (37.0-80.0); Red Blood Cells 4.51 10^6/uL (4.0-5.20); Red Cell Distribution Width 18.8 % (11.8-14.3); White Blood Cell 15.1 10^3/uL (4.4-10.8)
[2023-04-13 10:09] LABS: Alanine Aminotransferase 28 U/L (7-40); Albumin 4.3 g/dL (3.2-4.8); Alkaline Phosphatase 79 U/L (46-116); Calcium 9.2 mg/dL (8.5-10.1)
[2023-04-13 10:10] LABS: Anion Gap 9.2 (5-15); Aspartate Aminotransferase 8 U/L (13-40); BUN/Creatinine Ratio 14.9 (10.0-20.0); Blood Urea Nitrogen 10 mg/dL (9-23); Carbon Dioxide 24.8 mmol/L (20-30); Chloride 105 mmol/L (98-107); Glucose 145 mg/dL (74-106); Sodium 139 mmol/L (136-145)
[2023-04-13 10:11] LABS: Bilirubin, Total 0.3 mg/dL (0.2-1.0); Total Protein 6.4 g/dL (5.7-8.2)
[2023-04-13] MEDS ORDERED: AZITHROMYCIN 500MG/ 250ML 250 ML IV ONE (12:00)
[2023-04-13] MEDS ORDERED: cefTRIAXone 1GM/50ML D5W 50 ML IV ONE (12:00)
[2023-04-13] MEDS: DOCUSATE SOD 100 MG CAP PO SCH (21:19)
[2023-04-13] MEDS: TEMAZEPAM 15 MG CAP PO PRN (22:27)
[2023-04-14] VITALS (10 sets, daily range): BP systolic 111–120; BP diastolic 61–74; PULSE 54–93; RESP 16–20; TEMP 37.1; O2SAT 94–100
[2023-04-14] MEDS: IPRATROPIUM BROM 0.5 MG/2.5ML INH SOL NEB SCH ×3 (00:09→11:24)
[2023-04-14] MEDS: LEVALBUTEROL HCL 1.25 MG/3 ML NEB NEB SCH ×3 (00:09→11:24)
[2023-04-14 06:51] LABS: Anion Gap 5.8 (5-15); Carbon Dioxide 27.2 mmol/L (20-30); Chloride 105 mmol/L (98-107); Potassium 4.2 mmol/L (3.5-5.1); Sodium 138 mmol/L (136-145)
[2023-04-14 06:55] LABS: Basophils # (auto) 0 10 ^3/uL (0-0.2); Eosinophils # (auto) 0 10 ^3/uL (0-0.8); Hematocrit 35.3 % (36.0-46.0); Lymphocytes # (auto) 1.7 10 ^3/uL (0.4-5.4); Mean Corpuscular Volume 82.5 fL (80.0-100.0); Nucleated Red Blood Cells % 0.1 %; Red Blood Cells 4.28 10^6/uL (4.0-5.20)
[2023-04-14 06:56] LABS: Glucose 129 mg/dL (74-106)
[2023-04-14 06:57] LABS: BUN/Creatinine Ratio 15.5 (10.0-20.0); Blood Urea Nitrogen 11 mg/dL (9-23); Hemoglobin 11.6 g/dL (12.2-16.2); Lactic Acid w/Reflex 2.7 mmol/L (0.4-2.0); Lymphocytes % (auto) 15.4 % (10.0-50.0); Mean Corpuscular Hemoglobin 27.2 pg (28.0-32.0); Mean Corpuscular Hgb Conc. 32.9 g/dL (32.0-36.0); Monocytes # (auto) 0.4 10 ^3/uL (0-1.3); Monocytes % (auto) 3.3 % (0.0-12.0); Neutrophils # (auto) 8.9 10 ^3/uL (1.6-8.6); Neutrophils % (auto) 81.3 % (37.0-80.0); Red Cell Distribution Width 18.8 % (11.8-14.3); White Blood Cell 10.9 10^3/uL (4.4-10.8)
[2023-04-14 06:58] LABS: Magnesium 2.2 mg/dL (1.6-2.6)
[2023-04-14] MEDS ORDERED: cefTRIAXone 1GM/50ML D5W 50 ML IV SCH (09:00)
[2023-04-14] MEDS: DOCUSATE SOD 100 MG CAP PO SCH (09:40)
[2023-04-14] MEDS: methylPREDNISolone SOD SUCC 40 MG/ML VL IV SCH (09:41)
[2023-04-14] MEDS: OXYCODONE W/ ACETAMINOPHEN 5/325MG TABLET PO PRN ×2 (09:45→14:29)
[2023-04-14] MEDS ORDERED: AMOX500T86 PO (09:58)
[2023-04-14] MEDS ORDERED: PRED20TA2 PO ×2 (09:58)
[2023-04-14] MEDS ORDERED: AZITHROMYCIN 250 MG TAB PO SCH (10:00)
[2023-04-27] MEDS ORDERED: PRED20TA2 PO (10:49)
[2023-04-27] MEDS ORDERED: MONT-8 PO (10:49)
[2023-04-27] MEDS ORDERED: FLUT1AER3 IN (11:04)
== END 2023-04-14 17:30 | disposition home or self-care (01) | DRG 141 ==
LOC: EDBD 18:14 → ER 18:14 → TELE 21:15 → DOU IN ICU 04-11 01:40 → TELE-EAST 04-12 14:07 → EAST 04-13 15:08
PROVIDERS: ADMIT Nurse Practitioner; ATTEND Internal Medicine Pulmonary Disease
PROC: 5A09357 Assistance with Respiratory Ventilation, Less than 24 Consecutive Hours, Continuous Positive Airway Pressure (ICD-10-PCS; principal; 2023-04-10)
PROC: 5A09357 Assistance with Respiratory Ventilation, Less than 24 Consecutive Hours, Continuous Positive Airway Pressure (ICD-10-PCS; 2023-04-11)
PROC: 05HA33Z Insertion of Infusion Device into Left Brachial Vein, Percutaneous Approach (ICD-10-PCS; 2023-04-11)
PROC: B54NZZA Ultrasonography of Left Upper Extremity Veins, Guidance (ICD-10-PCS; 2023-04-11)
DX: J45.52 Severe persistent asthma with status asthmaticus (principal); J96.21 Acute and chronic respiratory failure with hypoxia; J15.6 Pneumonia due to other Gram-negative bacteria; E87.6 Hypokalemia; E66.01 Morbid (severe) obesity due to excess calories; Z20.822 Contact with and (suspected) exposure to COVID-19; Z90.49 Acquired absence of other specified parts of digestive tract; Z88.8 Allergy status to other drugs, medicaments and biological substances; Z68.30 Body mass index [BMI] 30.0-30.9, adult
CPT/HCPCS: 36415; 36600; 71045; 80048; 80053; 81001; 82805; 83605; 83735; 83880; 85025; 85379; 87081; 87426; 93005; 93970; 94640; 94660; 96365; 96367; 99291; G0378; J0696; J1100; J3480

== ENCOUNTER 2023-04-16 21:15 | Emergency (ER) | payer MEDICAID ==
[~2023-04-16] VITALS: Ht 170.2 cm; Wt 90.0 kg
[~2023-04-16 21:15] MED LIST changes: +PERCOT PO
[2023-04-16 21:39] LABS: Hemoglobin 13.7 g/dL (12.2-16.2)
[2023-04-16 21:41] LABS: Hematocrit 42.5 % (36.0-46.0); Mean Corpuscular Hemoglobin 26.6 pg (28.0-32.0); Mean Corpuscular Hgb Conc. 32.2 g/dL (32.0-36.0); Mean Corpuscular Volume 82.6 fL (80.0-100.0); Red Blood Cells 5.15 10^6/uL (4.0-5.20); Red Cell Distribution Width 19.2 % (11.8-14.3); White Blood Cell 11.9 10^3/uL (4.4-10.8)
[2023-04-16 21:45] VITALS: O2SAT 97
[2023-04-16 22:00] VITALS: TEMP 98.7
[2023-04-16 22:03] LABS: Alanine Aminotransferase 23 U/L (7-40); Albumin 4.5 g/dL (3.2-4.8); Alkaline Phosphatase 78 U/L (46-116); Anion Gap 8.8 (5-15); Aspartate Aminotransferase 13 U/L (13-40); Bilirubin, Total 0.2 mg/dL (0.2-1.0); Blood Urea Nitrogen 16 mg/dL (9-23); Calcium 9.8 mg/dL (8.5-10.1); Carbon Dioxide 23.2 mmol/L (20-30); Chloride 107 mmol/L (98-107); Glucose 161 mg/dL (74-106); Magnesium 2.1 mg/dL (1.6-2.6); Potassium 4.6 mmol/L (3.5-5.1); Sodium 139 mmol/L (136-145)
[2023-04-16 22:04] LABS: Total Protein 6.9 g/dL (5.7-8.2)
[2023-04-16 22:18] LABS: INR 0.97 (0.9-1.15); Partial Thromboplastin Time 21.7 SEC (24.5-34.5); Prothrombin Time 10.2 sec (9.3-11.8)
[2023-04-16] MEDS ORDERED: MORPHINE SULFATE 4 MG/ML SYR/VIAL IV ONE (22:30)
[2023-04-16 22:33] LABS: Basophils % (manual) 0 (0.0-2.0); Blast Cells 0; Eosinophils % (manual) 0 (0-7); Myelocytes % 0; Promyelocytes % 0; Reactive Lymphocytes 0
[2023-04-16 22:52] LABS: Band Neutrophils % (manual) 2; Lymphocytes % (manual) 15 (10.0-50.0); Monocytes % (manual) 3 (0-12)
[2023-04-16 22:53] LABS: Anisocytosis Slight; Metamyelocytes % 1; Platelet Estimate Adequate
[2023-04-17] MEDS ORDERED: HYDROmorphone HCL 2 MG/ML VL/or syr IV ONE
[2023-04-17 01:30] VITALS: BP 128/78; PULSE 62; RESP 20; O2SAT 97
== END 2023-04-17 03:05 | disposition home or self-care (01) ==
LOC: ER 21:15 → EDBD 21:15 → ER 04-17 03:00
DX: R07.89 Other chest pain (principal); D72.829 Elevated white blood cell count, unspecified; F41.9 Anxiety disorder, unspecified; J45.909 Unspecified asthma, uncomplicated; Z90.49 Acquired absence of other specified parts of digestive tract; Z98.890 Other specified postprocedural states; Z90.89 Acquired absence of other organs; Z79.899 Other long term (current) drug therapy; Z88.6 Allergy status to analgesic agent; Z88.8 Allergy status to other drugs, medicaments and biological substances
CPT/HCPCS: 36415; 71045; 80053; 83735; 83880; 84484; 85007; 85027; 85379; 85610; 85730; 93005; 96374; 96375; 99285; J1170; J2270

== ENCOUNTER 2023-05-05 13:45 | Inpatient (IN) | payer MEDICAID ==
[~2023-05-05] VITALS: Ht 167.6 cm; Wt 99.3 kg
[2023-05-05] VITALS (11 sets, daily range): BP systolic 125–137; BP diastolic 79–86; PULSE 82–127; RESP 19–87; TEMP 98.1–98.2; O2SAT 97–100
[~2023-05-05 13:45] MED LIST changes: +FLUT1AER3 IN; -FLUT250M2 INH
[2023-05-05] MEDS ORDERED: EPINEPHrine HCL 1 MG/1 ML AMP ONE (13:47)
[2023-05-05] MEDS ORDERED: ALBUTEROL SULF 2.5 MG/0.5ML(0.5%) NEB SOLN ONE (13:49)
[2023-05-05] MEDS ORDERED: IPRATROPIUM BROM 0.5 MG/2.5ML INH SOL ONE (13:50)
[2023-05-05] MEDS ORDERED: DexAMETHasone SOD PHOS 4 MG/1ML SDV INJ ONE (13:51)
[2023-05-05] MEDS ORDERED: DexAMETHasone SOD PHOS 10MG/1ML VIAL INJ IV ONE (14:00)
[2023-05-05] MEDS ORDERED: EPINEPHrine HCL 1 MG/1 ML AMP IM ONE ×2 (14:00)
[2023-05-05] MEDS ORDERED: ALBUTEROL SULF 2.5 MG/0.5ML(0.5%) NEB SOLN NEB ONE (14:00)
[2023-05-05] MEDS ORDERED: IPRATROPIUM BROM 0.5 MG/2.5ML INH SOL NEB ONE (14:00)
[2023-05-05] MEDS ORDERED: MAGNESIUM SULFATE 1GM/100ML 200 ML IV ONE (14:01)
[2023-05-05] MEDS: MAGNESIUM SULFATE 1GM/100ML 100 ML IV SCH ×2 (14:11→14:27)
[2023-05-05 14:23] LABS: Hematocrit 40.9 % (36.0-46.0); Hemoglobin 13.2 g/dL (12.2-16.2); Mean Corpuscular Hemoglobin 27.3 pg (28.0-32.0); Mean Corpuscular Hgb Conc. 32.4 g/dL (32.0-36.0); Mean Corpuscular Volume 84.3 fL (80.0-100.0); Red Blood Cells 4.85 10^6/uL (4.0-5.20); Red Cell Distribution Width 18.9 % (11.8-14.3); White Blood Cell 19.4 10^3/uL (4.4-10.8)
[2023-05-05 14:33] LABS: Alanine Aminotransferase 23 U/L (7-40); Albumin 5.2 g/dL (3.2-4.8); Alkaline Phosphatase 75 U/L (46-116); Anion Gap 12 (5-15); Aspartate Aminotransferase 10 U/L (13-40); BUN/Creatinine Ratio 13.2 (10.0-20.0); Bilirubin, Total 0.4 mg/dL (0.2-1.0); Blood Urea Nitrogen 12 mg/dL (9-23); Calcium 9.8 mg/dL (8.7-10.4); Carbon Dioxide 23 mmol/L (20-30); Chloride 103 mmol/L (98-107); Glucose 147 mg/dL (74-106); Potassium 3.8 mmol/L (3.5-5.1); Sodium 138 mmol/L (136-145); Total Protein 7.1 g/dL (5.7-8.2)
[2023-05-05 14:43] LABS: Band Neutrophils % (manual) 0; Basophils % (manual) 0 (0.0-2.0); Blast Cells 0; Eosinophils % (manual) 0 (0-7); Metamyelocytes % 0; Myelocytes % 0; Promyelocytes % 0; Reactive Lymphocytes 0
[2023-05-05 15:12] LABS: Base Excess -0.9 mmol/L (-2.0-2.0)
[2023-05-05 15:37] LABS: Anisocytosis Slight; Lymphocytes % (manual) 33 (10.0-50.0); Monocytes % (manual) 7 (0-12); Platelet Estimate Adequate
[2023-05-05] MEDS ORDERED: ONDANSETRON HCL 4 MG/2 ML VIAL IV PRN (16:15)
[2023-05-05] MEDS ORDERED: ALBUTEROL SULF 2.5 MG/0.5ML(0.5%) NEB SOLN NEB PRN (16:15)
[2023-05-05] MEDS: SODIUM CHLORIDE 0.9% 1,000 ML IV SCH ×2 (16:15→17:45)
[2023-05-05] MEDS: ALBUTEROL SULF 2.5 MG/0.5ML(0.5%) NEB SOLN NEB SCH ×2 (19:30→22:05)
[2023-05-05] MEDS: IPRATROPIUM BROM 0.5 MG/2.5ML INH SOL NEB SCH ×2 (19:30→22:05)
[2023-05-05 20:36] LABS: Urine Bacteria NONE SEEN /hpf (None Seen); Urine Blood Negative /uL (Negative); Urine Clarity Clear (Clear); Urine Color Yellow (Yellow); Urine Mucus FEW (None Seen); Urine Protein, UAD Negative (Negative); Urine Specific Gravity 1.021 (1.001-1.035); Urine Urobilinogen Normal (Negative); Urine WBC 17 /hpf (0 - 5)
[2023-05-05] MEDS: methylPREDNISolone SOD SUCC 40 MG/ML VL IV SCH (21:07)
[2023-05-05] MEDS: ACETAMINOPHEN 325 MG TAB PO PRN (21:08)
[2023-05-05] MEDS: GABAPENTIN 300 MG CAP PO SCH (21:08)
[2023-05-06] VITALS (23 sets, daily range): BP systolic 103–140; BP diastolic 67–91; PULSE 64–112; RESP 18–29; TEMP 97.5–98.9; O2SAT 98–100
[2023-05-06] MEDS: IPRATROPIUM BROM 0.5 MG/2.5ML INH SOL NEB SCH ×7 (02:37→21:55)
[2023-05-06] MEDS: ALBUTEROL SULF 2.5 MG/0.5ML(0.5%) NEB SOLN NEB SCH ×7 (02:37→21:55)
[2023-05-06] MEDS: methylPREDNISolone SOD SUCC 40 MG/ML VL IV SCH ×3 (05:34→21:56)
[2023-05-06 06:40] LABS: Alanine Aminotransferase 19 U/L (7-40); Albumin 4.6 g/dL (3.2-4.8); Alkaline Phosphatase 64 U/L (46-116); Anion Gap 11 (5-15); Aspartate Aminotransferase < 8 U/L (13-40); Bilirubin, Total 0.3 mg/dL (0.2-1.0); Blood Urea Nitrogen 10 mg/dL (9-23); Calcium 9.3 mg/dL (8.7-10.4); Carbon Dioxide 23 mmol/L (20-30); Chloride 104 mmol/L (98-107); Glucose 201 mg/dL (74-106); Potassium 3.9 mmol/L (3.5-5.1); Sodium 138 mmol/L (136-145); Total Protein 6.2 g/dL (5.7-8.2)
[2023-05-06 06:50] LABS: Hematocrit 36.4 % (36.0-46.0); Hemoglobin 11.7 g/dL (12.2-16.2); Mean Corpuscular Hemoglobin 27.4 pg (28.0-32.0); Mean Corpuscular Hgb Conc. 32.1 g/dL (32.0-36.0); Mean Corpuscular Volume 85.4 fL (80.0-100.0); Red Blood Cells 4.27 10^6/uL (4.0-5.20); Red Cell Distribution Width 19.6 % (11.8-14.3); White Blood Cell 12.4 10^3/uL (4.4-10.8)
[2023-05-06 07:20] LABS: Basophils % (manual) 0 (0.0-2.0); Blast Cells 0; Eosinophils % (manual) 0 (0-7); Myelocytes % 0; Promyelocytes % 0; Reactive Lymphocytes 0
[2023-05-06 09:50] LABS: Band Neutrophils % (manual) 8; Lymphocytes % (manual) 8 (10.0-50.0); Metamyelocytes % 2; Monocytes % (manual) 2 (0-12); Platelet Estimate Adequate
[2023-05-06] MEDS ORDERED: FAMOTIDINE 20 MG TAB PO SCH (10:00)
[2023-05-06] MEDS ORDERED: methylPREDNISolone SOD SUCC 40 MG/ML VL IV SCH (10:00)
[2023-05-06] MEDS: MONTELUKAST SODIUM 10 MG TAB PO SCH (10:27)
[2023-05-06] MEDS: GABAPENTIN 300 MG CAP PO SCH ×2 (10:27→21:56)
[2023-05-06] MEDS: ENOXAPARIN SOD 40 MG/0.4 ML SYRINGE SC SCH (10:28)
[2023-05-06] MEDS ORDERED: OXYCODONE W/ ACETAMINOPHEN 5/325MG TABLET PO PRN ×2 (10:45)
[2023-05-06] MEDS ORDERED: cefTRIAXone 1GM/50ML D5W 50 ML IV ONE (11:15)
[2023-05-06] MEDS ORDERED: AZITHROMYCIN 500MG/ 250ML 250 ML IV ONE (11:15)
[2023-05-06 11:16] LABS: Base Excess -1.6 mmol/L (-2.0-2.0)
[2023-05-06] MEDS: oxyCODONE HCL 5MG TAB PO PRN (18:05)
[2023-05-06 19:04] LABS: INR 1.02 (0.9-1.15); Partial Thromboplastin Time 22.3 SEC (24.5-34.5); Prothrombin Time 10.7 sec (9.3-11.8)
[2023-05-06] MEDS ORDERED: MELATONIN 5 MG TAB PO ONE (23:30)
[2023-05-07] VITALS (18 sets, daily range): BP systolic 115–138; BP diastolic 61–99; PULSE 70–119; RESP 16–22; TEMP 97.9–98.2; O2SAT 94–99
[2023-05-07] MEDS: methylPREDNISolone SOD SUCC 40 MG/ML VL IV SCH ×3 (05:21→22:05)
[2023-05-07] MEDS: ALBUTEROL SULF 2.5 MG/0.5ML(0.5%) NEB SOLN NEB SCH ×5 (06:57→22:26)
[2023-05-07] MEDS: IPRATROPIUM BROM 0.5 MG/2.5ML INH SOL NEB SCH ×5 (06:57→22:26)
[2023-05-07 07:01] LABS: Basophils # (auto) 0 10 ^3/uL (0-0.2); Eosinophils # (auto) 0 10 ^3/uL (0-0.8); Hematocrit 35.9 % (36.0-46.0); Hemoglobin 11.6 g/dL (12.2-16.2); Lymphocytes # (auto) 1.4 10 ^3/uL (0.4-5.4); Lymphocytes % (auto) 9.7 % (10.0-50.0); Mean Corpuscular Hemoglobin 27.3 pg (28.0-32.0); Mean Corpuscular Hgb Conc. 32.3 g/dL (32.0-36.0); Mean Corpuscular Volume 84.4 fL (80.0-100.0); Monocytes # (auto) 0.4 10 ^3/uL (0-1.3); Monocytes % (auto) 2.5 % (0.0-12.0); Neutrophils # (auto) 12.6 10 ^3/uL (1.6-8.6); Neutrophils % (auto) 87.8 % (37.0-80.0); Nucleated Red Blood Cells % 0.2 %; Red Blood Cells 4.25 10^6/uL (4.0-5.20); Red Cell Distribution Width 18.9 % (11.8-14.3); White Blood Cell 14.4 10^3/uL (4.4-10.8)
[2023-05-07 07:10] LABS: Calcium 9.2 mg/dL (8.7-10.4); Chloride 103 mmol/L (98-107); Potassium 3.8 mmol/L (3.5-5.1); Sodium 138 mmol/L (136-145)
[2023-05-07 07:11] LABS: Anion Gap 8 (5-15); Carbon Dioxide 27 mmol/L (20-30)
[2023-05-07 07:16] LABS: BUN/Creatinine Ratio 17.3 (10.0-20.0); Blood Urea Nitrogen 13 mg/dL (9-23); Glucose 159 mg/dL (74-106)
[2023-05-07 07:17] LABS: Magnesium 2.1 mg/dL (1.6-2.6)
[2023-05-07 07:29] LABS: CRP High Sensitivity 0.07 mg/dL (<1.0)
[2023-05-07] MEDS: oxyCODONE HCL 5MG TAB PO PRN ×3 (08:12→20:18)
[2023-05-07] MEDS ORDERED: cefTRIAXone 1GM/50ML D5W 50 ML IV SCH (09:00)
[2023-05-07] MEDS: GABAPENTIN 300 MG CAP PO SCH ×2 (09:50→22:05)
[2023-05-07] MEDS: MONTELUKAST SODIUM 10 MG TAB PO SCH (09:50)
[2023-05-07] MEDS: ENOXAPARIN SOD 40 MG/0.4 ML SYRINGE SC SCH (09:50)
[2023-05-07] MEDS ORDERED: PANTOPRAZOLE 40 MG TAB PO SCH (10:00)
[2023-05-07] MEDS ORDERED: AZITHROMYCIN 500MG/ 250ML 250 ML IV SCH (10:00)
[2023-05-07] MEDS ORDERED: BUPR5DIS TOP (20:06)
[2023-05-08] VITALS (19 sets, daily range): BP systolic 108–135; BP diastolic 79–88; PULSE 65–112; RESP 14–22; TEMP 97.6–98.4; O2SAT 93–100
[2023-05-08] MEDS: oxyCODONE HCL 5MG TAB PO PRN (03:03)
[2023-05-08] MEDS ORDERED: MORPHINE SULFATE INJ 2 MG/ml SYRG IV PRN ×2 (04:30→12:00)
[2023-05-08] MEDS: methylPREDNISolone SOD SUCC 40 MG/ML VL IV SCH ×3 (05:48→21:26)
[2023-05-08] MEDS ORDERED: HYDROcodone-ACET 5/325MG TAB PO PRN (06:15)
[2023-05-08 06:23] LABS: Hematocrit 36.7 % (36.0-46.0); Hemoglobin 12.1 g/dL (12.2-16.2); Mean Corpuscular Hemoglobin 27.6 pg (28.0-32.0); Mean Corpuscular Volume 83.4 fL (80.0-100.0); Red Cell Distribution Width 19.6 % (11.8-14.3); White Blood Cell 16.4 10^3/uL (4.4-10.8)
[2023-05-08 06:29] LABS: Band Neutrophils % (manual) 0; Basophils % (manual) 0 (0.0-2.0); Blast Cells 0; Eosinophils % (manual) 0 (0-7); Metamyelocytes % 0; Myelocytes % 0; Promyelocytes % 0; Reactive Lymphocytes 0
[2023-05-08 06:47] LABS: Chloride 101 mmol/L (98-107); Potassium 4.6 mmol/L (3.5-5.1); Sodium 137 mmol/L (136-145)
[2023-05-08 06:49] LABS: Anion Gap 8 (5-15); Calcium 9.3 mg/dL (8.7-10.4); Carbon Dioxide 28 mmol/L (20-30); Lymphocytes % (manual) 10 (10.0-50.0); Monocytes % (manual) 7 (0-12); Platelet Estimate Adequate
[2023-05-08 06:54] LABS: BUN/Creatinine Ratio 17.7 (10.0-20.0); Blood Urea Nitrogen 14 mg/dL (9-23); Glucose 122 mg/dL (74-106)
[2023-05-08] MEDS: ACETAMINOPHEN 325 MG TAB PO PRN (07:09)
[2023-05-08] MEDS: IPRATROPIUM BROM 0.5 MG/2.5ML INH SOL NEB SCH ×5 (07:12→22:47)
[2023-05-08] MEDS: ALBUTEROL SULF 2.5 MG/0.5ML(0.5%) NEB SOLN NEB SCH ×5 (07:12→22:47)
[2023-05-08] MEDS ORDERED: LACTULOSE 20Gm/30ML SOLN PO PRN (12:00)
[2023-05-08] MEDS: ENOXAPARIN SOD 40 MG/0.4 ML SYRINGE SC SCH (13:47)
[2023-05-08] MEDS: GABAPENTIN 300 MG CAP PO SCH ×2 (13:48→21:25)
[2023-05-08] MEDS ORDERED: DOCUSATE SOD 100 MG CAP PO PRN (16:15)
[2023-05-08] MEDS ORDERED: ERGOCALCIFEROL 50,000 UNIT(1.25MG) CAP PO SCH (16:15)
[2023-05-08] MEDS ORDERED: SENNA 8.6 MG TAB PO PRN (16:15)
[2023-05-08] MEDS: OXYCODONE W/ ACETAMINOPHEN 5/325MG TABLET PO PRN (18:45)
[2023-05-08] MEDS: FERROUS SULFATE 325mg EC TAB PO SCH (18:45)
[2023-05-08] MEDS: CYCLOBENZAPRINE HCL 10 MG TAB PO SCH (21:26)
[2023-05-09] VITALS (10 sets, daily range): BP systolic 110–142; BP diastolic 61–83; PULSE 81–104; RESP 16–20; TEMP 97.8–98.4; O2SAT 94–99
[2023-05-09] MEDS: OXYCODONE W/ ACETAMINOPHEN 5/325MG TABLET PO PRN ×3 (01:25→13:45)
[2023-05-09 05:10] LABS: Hematocrit 35.4 % (36.0-46.0); Hemoglobin 11.7 g/dL (12.2-16.2); Mean Corpuscular Hemoglobin 27.9 pg (28.0-32.0); Mean Corpuscular Hgb Conc. 33.2 g/dL (32.0-36.0); Mean Corpuscular Volume 84.1 fL (80.0-100.0); Red Blood Cells 4.21 10^6/uL (4.0-5.20); Red Cell Distribution Width 19.4 % (11.8-14.3); White Blood Cell 13.9 10^3/uL (4.4-10.8)
[2023-05-09 05:13] LABS: Chloride 101 mmol/L (98-107); Potassium 4.7 mmol/L (3.5-5.1); Sodium 138 mmol/L (136-145)
[2023-05-09 05:14] LABS: Anion Gap 6 (5-15); Calcium 9.3 mg/dL (8.7-10.4); Carbon Dioxide 31 mmol/L (20-30)
[2023-05-09 05:19] LABS: Glucose 143 mg/dL (74-106)
[2023-05-09 05:20] LABS: BUN/Creatinine Ratio 22.1 (10.0-20.0); Band Neutrophils % (manual) 0; Basophils % (manual) 0 (0.0-2.0); Blast Cells 0; Blood Urea Nitrogen 17 mg/dL (9-23); Eosinophils % (manual) 0 (0-7); Magnesium 2.3 mg/dL (1.6-2.6); Metamyelocytes % 0; Promyelocytes % 0; Reactive Lymphocytes 0
[2023-05-09 06:00] LABS: Lymphocytes % (manual) 11 (10.0-50.0); Monocytes % (manual) 1 (0-12); Myelocytes % 2; Platelet Estimate Adequate
[2023-05-09] MEDS: ALBUTEROL SULF 2.5 MG/0.5ML(0.5%) NEB SOLN NEB SCH ×3 (06:25→14:25)
[2023-05-09] MEDS: IPRATROPIUM BROM 0.5 MG/2.5ML INH SOL NEB SCH ×3 (06:26→14:25)
[2023-05-09] MEDS: methylPREDNISolone SOD SUCC 40 MG/ML VL IV SCH (06:31)
[2023-05-09] MEDS: FERROUS SULFATE 325mg EC TAB PO SCH (08:43)
[2023-05-09] MEDS: GABAPENTIN 300 MG CAP PO SCH (08:46)
[2023-05-09] MEDS: CYCLOBENZAPRINE HCL 10 MG TAB PO SCH (08:47)
[2023-05-09] MEDS: ENOXAPARIN SOD 40 MG/0.4 ML SYRINGE SC SCH (08:51)
[2023-05-09] MEDS ORDERED: FAMOTIDINE 20 MG TAB PO SCH (10:00)
[2023-05-09] MEDS ORDERED: IOHEXOL 350 MG/ML 100ML IJ ONE (10:40)
[2023-05-09] MEDS ORDERED: METH4PAK PO (13:56)
[2023-05-09] MEDS ORDERED: AZIT-74 PO (13:56)
== END 2023-05-09 17:45 | disposition home or self-care (01) | DRG 133 ==
LOC: ER 13:45 → EDBD 13:45 → OVERFLOW 16:14 → CENTRAL 17:20
PROVIDERS: ADMIT Internal Medicine Geriatric Medicine; ATTEND Student in an Organized Health Care Education/Training Program
PROC: 05HA33Z Insertion of Infusion Device into Left Brachial Vein, Percutaneous Approach (ICD-10-PCS; principal; 2023-05-05)
PROC: B54NZZA Ultrasonography of Left Upper Extremity Veins, Guidance (ICD-10-PCS; 2023-05-05)
PROC: 5A09357 Assistance with Respiratory Ventilation, Less than 24 Consecutive Hours, Continuous Positive Airway Pressure (ICD-10-PCS; 2023-05-05)
PROC: 5A09357 Assistance with Respiratory Ventilation, Less than 24 Consecutive Hours, Continuous Positive Airway Pressure (ICD-10-PCS; 2023-05-06)
DX: J96.01 Acute respiratory failure with hypoxia (principal); J45.901 Unspecified asthma with (acute) exacerbation; E03.9 Hypothyroidism, unspecified; J98.11 Atelectasis; D72.829 Elevated white blood cell count, unspecified; F41.9 Anxiety disorder, unspecified; E66.3 Overweight; G89.29 Other chronic pain; M54.50 Low back pain, unspecified; Z88.6 Allergy status to analgesic agent; Z88.8 Allergy status to other drugs, medicaments and biological substances; Z79.899 Other long term (current) drug therapy; Z90.49 Acquired absence of other specified parts of digestive tract; Z82.3 Family history of stroke; Z83.3 Family history of diabetes mellitus; Z81.8 Family history of other mental and behavioral disorders; Z68.35 Body mass index [BMI] 35.0-35.9, adult; Q05.9 Spina bifida, unspecified
CPT/HCPCS: 36415; 36600; 71045; 71275; 80048; 80053; 81001; 82805; 83735; 83880; 84484; 84702; 85007; 85025; 85027; 85610; 85730; 86141; 87040; 87081; 87086; 93005; 94640; 94644; 94660; 96372; 97110; 97116; 97163; 97530; 99291; G0378; J0171; J0696; J1100

== ENCOUNTER 2023-05-15 21:05 | Inpatient (IN) | payer MEDICAID ==
[~2023-05-15] VITALS: Ht 170.2 cm; Wt 93.6 kg
[~2023-05-15 21:05] MED LIST changes: -AMOX500T86 PO; +AZIT-74 PO; +BUPR5DIS TOP; +METH4PAK PO; -PRED20TA2 PO
[2023-05-15 21:15] VITALS: PULSE 143; RESP 31
[2023-05-15] MEDS ORDERED: ALBUTEROL SULF 2.5 MG/0.5ML(0.5%) NEB SOLN HHN ONE (21:15)
[2023-05-15] MEDS ORDERED: DexAMETHasone SOD PHOS 10MG/1ML VIAL INJ IV ONE (21:15)
[2023-05-15] MEDS ORDERED: IPRATROPIUM BROM 0.5 MG/2.5ML INH SOL HHN ONE (21:15)
[2023-05-15] MEDS ORDERED: IPRATROPIUM BROM 0.5 MG/2.5ML INH SOL NEB ONE (21:15)
[2023-05-15] MEDS ORDERED: ALBUTEROL SULF 2.5 MG/0.5ML(0.5%) NEB SOLN NEB ONE (21:15)
[2023-05-15 21:42] LABS: Basophils # (auto) 0.2 10 ^3/uL (0-0.2); Basophils % (auto) 1.1 % (0.0-2.0); Eosinophils # (auto) 0 10 ^3/uL (0-0.8); Eosinophils % (auto) 0.1 % (0.0-7.0); Hematocrit 42.7 % (36.0-46.0); Lymphocytes # (auto) 3.7 10 ^3/uL (0.4-5.4); Lymphocytes % (auto) 22.9 % (10.0-50.0); Mean Corpuscular Hemoglobin 28.2 pg (28.0-32.0); Mean Corpuscular Hgb Conc. 32.8 g/dL (32.0-36.0); Mean Corpuscular Volume 86.1 fL (80.0-100.0); Monocytes # (auto) 0.7 10 ^3/uL (0-1.3); Monocytes % (auto) 4.6 % (0.0-12.0); Neutrophils # (auto) 11.7 10 ^3/uL (1.6-8.6); Neutrophils % (auto) 71.3 % (37.0-80.0); Nucleated Red Blood Cells % 0.2 %; Red Blood Cells 4.96 10^6/uL (4.0-5.20); Red Cell Distribution Width 19.6 % (11.8-14.3); White Blood Cell 16.3 10^3/uL (4.4-10.8)
[2023-05-15 21:46] LABS: Lactic Acid w/Reflex 4.6 mmol/L (0.4-2.0)
[2023-05-15 21:51] LABS: Base Excess 0.3 mmol/L (-2.0-2.0)
[2023-05-15 22:00] VITALS: PULSE 121; O2SAT 99
[2023-05-15] MEDS ORDERED: cefTRIAXone 1GM/50ML D5W 50 ML IV ONE (23:00)
[2023-05-15] MEDS ORDERED: DOCUSATE SOD 100 MG CAP PO PRN (23:00)
[2023-05-15] MEDS ORDERED: IPRATROPIUM BROM 0.5 MG/2.5ML INH SOL NEB PRN (23:00)
[2023-05-15] MEDS ORDERED: AZITHROMYCIN 500MG/ 250ML 250 ML IV ONE (23:00)
[2023-05-15] MEDS ORDERED: ACETAMINOPHEN 325 MG TAB PO PRN (23:00)
[2023-05-15] MEDS ORDERED: ALBUTEROL SULF 2.5 MG/0.5ML(0.5%) NEB SOLN NEB PRN (23:00)
[2023-05-15] MEDS ORDERED: HYDROcodone-ACET 5/325MG TAB PO PRN (23:00)
[2023-05-15] MEDS ORDERED: SODIUM CHLORIDE 0.9% 1,000 ML IV SCH (23:00)
[2023-05-15] MEDS: MAGNESIUM SULFATE 1GM/100ML 100 ML IV SCH (23:10)
[2023-05-15 23:42] LABS: Chloride 106 mmol/L (98-107); Sodium 137 mmol/L (136-145)
[2023-05-15 23:45] LABS: Anion Gap 9 (5-15); Carbon Dioxide 22 mmol/L (20-30)
[2023-05-15 23:50] LABS: Glucose 217 mg/dL (74-106)
[2023-05-15 23:51] LABS: Alkaline Phosphatase 95 U/L (46-116); Magnesium 2.1 mg/dL (1.6-2.6)
[2023-05-15 23:52] VITALS: BP 159/79; PULSE 142; RESP 42; TEMP 98.8; O2SAT 99
[2023-05-15 23:52] LABS: Alanine Aminotransferase 36 U/L (7-40); Albumin 4.5 g/dL (3.2-4.8); Aspartate Aminotransferase 14 U/L (13-40); BUN/Creatinine Ratio 11.1 (10.0-20.0); Blood Urea Nitrogen 9 mg/dL (9-23)
[2023-05-15 23:53] LABS: Bilirubin, Total 0.2 mg/dL (0.2-1.0); Total Protein 6.8 g/dL (5.7-8.2)
[2023-05-16] VITALS (18 sets, daily range): BP systolic 104–129; BP diastolic 74–93; PULSE 76–117; RESP 14–22; TEMP 98.3–98.4; O2SAT 95–100
[2023-05-16] MEDS ORDERED: NITROGLYCERIN 0.4 MG SL TAB SL PRN
[2023-05-16] MEDS ORDERED: MORPHINE SULFATE INJ 2 MG/ml SYRG IV PRN
[2023-05-16] MEDS: MAGNESIUM SULFATE 1GM/100ML 100 ML IV SCH (00:19)
[2023-05-16 03:09] LABS: Urine Bacteria FEW /hpf (None Seen); Urine Blood Negative /uL (Negative); Urine Clarity Clear (Clear); Urine Color Colorless (Yellow); Urine Mucus FEW (None Seen); Urine Protein, UAD Negative (Negative); Urine Specific Gravity 1.025 (1.001-1.035); Urine Urobilinogen Normal (Negative); Urine WBC 2 /hpf (0 - 5); Urine pH 5.5 (5.0-8.0)
[2023-05-16] MEDS: MORPHINE SULFATE INJ 2 MG/ml SYRG IV PRN ×3 (03:22→12:04)
[2023-05-16] MEDS: ONDANSETRON HCL 4 MG/2 ML VIAL IV PRN ×2 (03:23→08:18)
[2023-05-16 05:46] LABS: Basophils # (auto) 0 10 ^3/uL (0-0.2); Basophils % (auto) 0.1 % (0.0-2.0); Eosinophils # (auto) 0 10 ^3/uL (0-0.8); Hematocrit 37.2 % (36.0-46.0); Hemoglobin 12.1 g/dL (12.2-16.2); Lymphocytes # (auto) 0.8 10 ^3/uL (0.4-5.4); Lymphocytes % (auto) 7.7 % (10.0-50.0); Mean Corpuscular Hemoglobin 28.3 pg (28.0-32.0); Mean Corpuscular Hgb Conc. 32.4 g/dL (32.0-36.0); Mean Corpuscular Volume 87.3 fL (80.0-100.0); Monocytes # (auto) 0.1 10 ^3/uL (0-1.3); Monocytes % (auto) 1.2 % (0.0-12.0); Neutrophils # (auto) 9.7 10 ^3/uL (1.6-8.6); Nucleated Red Blood Cells % 0.1 %; Red Blood Cells 4.26 10^6/uL (4.0-5.20); Red Cell Distribution Width 19.9 % (11.8-14.3); White Blood Cell 10.6 10^3/uL (4.4-10.8)
[2023-05-16 05:56] LABS: Alanine Aminotransferase 32 U/L (7-40); Albumin 4.3 g/dL (3.2-4.8); Alkaline Phosphatase 76 U/L (46-116); Anion Gap 9 (5-15); Aspartate Aminotransferase < 8 U/L (13-40); BUN/Creatinine Ratio 10.4 (10.0-20.0); Bilirubin, Total 0.2 mg/dL (0.2-1.0); Blood Urea Nitrogen 7 mg/dL (9-23); Calcium 8.6 mg/dL (8.7-10.4); Carbon Dioxide 22 mmol/L (20-30); Chloride 106 mmol/L (98-107); Glucose 160 mg/dL (74-106); Potassium 4.1 mmol/L (3.5-5.1); Sodium 137 mmol/L (136-145); Total Protein 6.4 g/dL (5.7-8.2)
[2023-05-16 08:27] LABS: COVID19 ANTIGEN SOFIA FIA NEGATIVE (NEGATIVE)
[2023-05-16] MEDS: IPRATROPIUM BROM 0.5 MG/2.5ML INH SOL NEB SCH ×5 (10:07→21:29)
[2023-05-16] MEDS: ALBUTEROL SULF 2.5 MG/0.5ML(0.5%) NEB SOLN NEB SCH ×4 (10:14→21:29)
[2023-05-16] MEDS: FAMOTIDINE (10MG/ML) 2ML VL IV SCH ×2 (10:33→21:29)
[2023-05-16] MEDS: OXYCODONE W/ ACETAMINOPHEN 5/325MG TABLET PO PRN ×2 (13:00→21:30)
[2023-05-16] MEDS: BUDESONIDE (INHALATION) 0.5 MG/2 ML NEB NEB SCH (17:56)
[2023-05-16] MEDS ORDERED: cefTRIAXone 1GM/50ML D5W 50 ML IV SCH (21:00)
[2023-05-16] MEDS: GABAPENTIN 300 MG CAP PO SCH (21:29)
[2023-05-16] MEDS: CYCLOBENZAPRINE HCL 10 MG TAB PO SCH (21:29)
[2023-05-16] MEDS: DOCUSATE SOD 100 MG CAP PO SCH (21:30)
[2023-05-16] MEDS ORDERED: AZITHROMYCIN 500MG/ 250ML 250 ML IV SCH (22:00)
[2023-05-16] MEDS ORDERED: DexAMETHasone SOD PHOS 10MG/1ML VIAL INJ IV SCH (22:00)
[2023-05-17] VITALS (13 sets, daily range): BP systolic 122–133; BP diastolic 76–85; PULSE 70–105; RESP 14–19; TEMP 97.7–98.2; O2SAT 94–100
[2023-05-17] MEDS: IPRATROPIUM BROM 0.5 MG/2.5ML INH SOL NEB SCH ×4 (02:24→14:10)
[2023-05-17] MEDS: ALBUTEROL SULF 2.5 MG/0.5ML(0.5%) NEB SOLN NEB SCH ×4 (02:24→14:10)
[2023-05-17] MEDS: OXYCODONE W/ ACETAMINOPHEN 5/325MG TABLET PO PRN ×2 (04:31→10:35)
[2023-05-17 05:59] LABS: Basophils # (auto) 0 10 ^3/uL (0-0.2); Basophils % (auto) 0.1 % (0.0-2.0); Eosinophils # (auto) 0 10 ^3/uL (0-0.8); Hematocrit 37.1 % (36.0-46.0); Hemoglobin 11.8 g/dL (12.2-16.2); Lymphocytes % (auto) 8.3 % (10.0-50.0); Mean Corpuscular Hemoglobin 27.9 pg (28.0-32.0); Mean Corpuscular Hgb Conc. 31.9 g/dL (32.0-36.0); Mean Corpuscular Volume 87.6 fL (80.0-100.0); Monocytes # (auto) 0.3 10 ^3/uL (0-1.3); Monocytes % (auto) 2.2 % (0.0-12.0); Neutrophils # (auto) 11.1 10 ^3/uL (1.6-8.6); Neutrophils % (auto) 89.4 % (37.0-80.0); Red Blood Cells 4.23 10^6/uL (4.0-5.20); White Blood Cell 12.5 10^3/uL (4.4-10.8)
[2023-05-17 06:06] LABS: Anion Gap 9 (5-15); Calcium 8.9 mg/dL (8.5-10.1); Carbon Dioxide 24 mmol/L (20-30); Chloride 105 mmol/L (98-107); Potassium 3.8 mmol/L (3.5-5.1); Sodium 138 mmol/L (136-145)
[2023-05-17 06:12] LABS: BUN/Creatinine Ratio 11.9 (10.0-20.0); Blood Urea Nitrogen 7 mg/dL (9-23); Glucose 140 mg/dL (74-106); Red Cell Distribution Width 20.3 % (11.8-14.3)
[2023-05-17] MEDS: BUDESONIDE (INHALATION) 0.5 MG/2 ML NEB NEB SCH (09:15)
[2023-05-17] MEDS: FAMOTIDINE (10MG/ML) 2ML VL IV SCH (10:33)
[2023-05-17] MEDS: DOCUSATE SOD 100 MG CAP PO SCH (10:34)
[2023-05-17] MEDS: CYCLOBENZAPRINE HCL 10 MG TAB PO SCH (10:34)
[2023-05-17] MEDS: GABAPENTIN 300 MG CAP PO SCH (10:34)
[2023-05-17] MEDS ORDERED: METH4PAK PO (12:54)
== END 2023-05-17 15:13 | disposition home or self-care (01) | DRG 133 ==
LOC: ER 21:05 → EDBD 21:05 → EDSEX 21:05 → TELE 23:50 → TELE-CENTR 05-16 16:04
PROVIDERS: ADMIT Nurse Practitioner Family; ATTEND Nurse Practitioner Acute Care
PROC: 5A09357 Assistance with Respiratory Ventilation, Less than 24 Consecutive Hours, Continuous Positive Airway Pressure (ICD-10-PCS; principal; 2023-05-15)
DX: J96.01 Acute respiratory failure with hypoxia (principal); E87.20 Acidosis, unspecified; J45.902 Unspecified asthma with status asthmaticus; K59.00 Constipation, unspecified; G89.4 Chronic pain syndrome; J98.11 Atelectasis; T38.0X5A Adverse effect of glucocorticoids and synthetic analogues, initial encounter; Z20.822 Contact with and (suspected) exposure to COVID-19; Z79.899 Other long term (current) drug therapy; Z82.3 Family history of stroke; Z83.3 Family history of diabetes mellitus; Z88.6 Allergy status to analgesic agent; Y92.89 Other specified places as the place of occurrence of the external cause; Z90.49 Acquired absence of other specified parts of digestive tract
CPT/HCPCS: 36415; 36600; 71045; 71275; 76705; 80048; 80053; 81001; 82805; 83605; 83735; 85025; 85379; 87040; 87426; 93005; 94640; 94660; 96365; 96367; 96375; 99291; G0378; J0696; J1100; J2405; J3490

== ENCOUNTER 2023-06-08 19:13 | Inpatient (IN) | payer MEDICAID ==
[~2023-06-08] VITALS: Ht 170.2 cm; Wt 84.6 kg
[2023-06-08] MEDS ORDERED: diphenhdrAMINE HCL 50 MG/1 ML VL ONE (19:21)
[2023-06-08] MEDS ORDERED: DexAMETHasone SOD PHOS 10MG/1ML VIAL INJ ONE (19:22)
[2023-06-08] MEDS ORDERED: EPINEPHrine HCL 1 MG/10 ML SYRG ONE (19:22)
[2023-06-08] MEDS ORDERED: DexAMETHasone SOD PHOS 10MG/1ML VIAL INJ IV ONE (19:25)
[2023-06-08] MEDS ORDERED: diphenhdrAMINE HCL 50 MG/1 ML VL IV ONE (19:26)
[2023-06-08] MEDS ORDERED: EPINEPHrine HCL 1 MG/1 ML AMP SC ONE (19:27)
[2023-06-08] MEDS ORDERED: FAMOTIDINE (10MG/ML) 2ML VL IV ONE ×2 (19:28→19:29)
[2023-06-08] MEDS ORDERED: MAGNESIUM SULFATE 1GM/100ML 100 ML IV ONE ×2 (19:29→19:31)
[2023-06-08] MEDS ORDERED: IPRATROPIUM BROM 0.5 MG/2.5ML INH SOL NEB ONE (19:30)
[2023-06-08] MEDS ORDERED: EPINEPHrine HCL 0.5 ML NEB NEB ONE (19:30)
[2023-06-08] MEDS ORDERED: ALBUTEROL SULF 2.5 MG/0.5ML(0.5%) NEB SOLN NEB ONE (19:30)
[2023-06-08 19:43] VITALS: PULSE 135; RESP 20; O2SAT 100
[2023-06-08 19:50] LABS: Base Excess 0.6 mmol/L (-2.0-2.0)
[2023-06-08 20:07] VITALS: BP 148/95; PULSE 136; O2SAT 97
[2023-06-08 20:41] LABS: INR 0.98 (0.9-1.15); Partial Thromboplastin Time 23.9 SEC (24.5-34.5); Prothrombin Time 10.3 sec (9.3-11.8)
[2023-06-08 20:44] LABS: Alanine Aminotransferase 45 U/L (7-40); Albumin 4.3 g/dL (3.2-4.8); Alkaline Phosphatase 105 U/L (46-116); Anion Gap 10 (5-15); Aspartate Aminotransferase 19 U/L (13-40); BUN/Creatinine Ratio 11.1 (10.0-20.0); Blood Urea Nitrogen 8 mg/dL (9-23); Calcium 8.8 mg/dL (8.7-10.4); Carbon Dioxide 26 mmol/L (20-30); Chloride 104 mmol/L (98-107); Glucose 199 mg/dL (74-106); Magnesium 2.2 mg/dL (1.6-2.6); Sodium 140 mmol/L (136-145)
[2023-06-08 20:45] LABS: Bilirubin, Total 0.3 mg/dL (0.2-1.0)
[2023-06-08 21:00] LABS: Potassium 2.9 mmol/L (3.5-5.1)
[2023-06-08] MEDS ORDERED: POTASSIUM CHL 20MEQ/100ML 100 ML IV ONE (21:15)
[2023-06-08] MEDS ORDERED: LACTATED RINGER'S 1,000 ML IV ONE (21:15)
[2023-06-08 21:21] VITALS: BP 148/95; PULSE 136; RESP 30; TEMP 99.8; O2SAT 97
[2023-06-08 22:06] VITALS: BP 110/70; PULSE 111; O2SAT 97
[2023-06-08] MEDS: ALBUTEROL SULF 2.5 MG/0.5ML(0.5%) NEB SOLN NEB SCH (22:06)
[2023-06-08] MEDS ORDERED: ALBUTEROL MEDNEB 2.5 mg/3ml NEB ONE (22:06)
[2023-06-08] MEDS: IPRATROPIUM BROM 0.5 MG/2.5ML INH SOL NEB SCH (22:06)
[2023-06-08 22:33] VITALS: O2SAT 98
[2023-06-08 23:19] LABS: Basophils # (auto) 0.05 10 ^3/uL (0-0.2); Basophils % (auto) 0.3 % (0.0-2.0); Eosinophils # (auto) 0.08 10 ^3/uL (0-0.8); Eosinophils % (auto) 0.5 % (0.0-7.0); Lymphocytes % (auto) 33.2 % (10.0-50.0); Monocytes # (auto) 0.95 10 ^3/uL (0-1.3); Monocytes % (auto) 6.1 % (0.0-12.0); Neutrophils # (auto) 9.11 10 ^3/uL (1.6-8.6); Neutrophils % (auto) 58.2 % (37.0-80.0); Nucleated Red Blood Cells % 0.2 %; White Blood Cell 15.7 10^3/uL (4.4-10.8)
[2023-06-08 23:20] LABS: Hematocrit 38.6 % (36.0-46.0); Hemoglobin 12.2 g/dL (12.2-16.2); Mean Corpuscular Hemoglobin 28.4 pg (28.0-32.0); Mean Corpuscular Hgb Conc. 31.6 g/dL (32.0-36.0); Mean Corpuscular Volume 89.8 fL (80.0-100.0); Red Cell Distribution Width 16.6 % (11.8-14.3)
[2023-06-09] VITALS (61 sets, daily range): BP systolic 86–176; BP diastolic 47–110; PULSE 63–121; RESP 18–22; TEMP 96.8–98.2; O2SAT 94–100
[2023-06-09] MEDS ORDERED: cefTRIAXone 1GM/50ML D5W 50 ML IV ONE (00:45)
[2023-06-09] MEDS ORDERED: AZITHROMYCIN 500MG/ 250ML 250 ML IV ONE (00:45)
[2023-06-09] MEDS: IPRATROPIUM BROM 0.5 MG/2.5ML INH SOL NEB SCH ×4 (02:00→22:56)
[2023-06-09] MEDS: ALBUTEROL SULF 2.5 MG/0.5ML(0.5%) NEB SOLN NEB SCH ×5 (02:00→22:56)
[2023-06-09] MEDS ORDERED: MORPHINE SULFATE 4 MG/ML SYR/VIAL IV ONE (03:00)
[2023-06-09] MEDS ORDERED: ONDANSETRON HCL 4 MG/2 ML VIAL IV ONE (03:00)
[2023-06-09] MEDS ORDERED: ONDANSETRON HCL 4 MG/2 ML VIAL IV PRN (04:00)
[2023-06-09] MEDS ORDERED: ALBUTEROL SULF 2.5 MG/0.5ML(0.5%) NEB SOLN NEB PRN (04:00)
[2023-06-09] MEDS ORDERED: NITROGLYCERIN 0.4 MG SL TAB SL PRN (04:00)
[2023-06-09] MEDS ORDERED: IPRATROPIUM BROM 0.5 MG/2.5ML INH SOL NEB PRN (04:00)
[2023-06-09] MEDS ORDERED: MORPHINE SULFATE INJ 2 MG/ml SYRG IV PRN (04:00)
[2023-06-09] MEDS ORDERED: ALBUTEROL MEDNEB 2.5 mg/3ml NEB ONE ×5 (06:02→21:59)
[2023-06-09 06:17] LABS: COVID19 ANTIGEN SOFIA FIA NEGATIVE (NEGATIVE); Rapid Influenza A Negative (Negative); Rapid Influenza B Negative (Negative)
[2023-06-09] MEDS: HYDROcodone-ACET 5/325MG TAB PO PRN (08:17)
[2023-06-09] MEDS: GABAPENTIN 300 MG CAP PO SCH ×2 (10:00→21:04)
[2023-06-09] MEDS ORDERED: IPRATROPIUM BROM 0.5 MG/2.5ML INH SOL ONE ×2 (10:02→18:12)
[2023-06-09] MEDS ORDERED: EPINEPHrine HCL 0.5 ML NEB ONE (10:12)
[2023-06-09] MEDS ORDERED: methylPREDNISolone SOD SUCC 125 MG/2 ML VL IV ONE (10:15)
[2023-06-09] MEDS ORDERED: diphenhdrAMINE HCL 50 MG/1 ML VL IV ONE (10:15)
[2023-06-09] MEDS ORDERED: SODIUM CHLORIDE 0.9% 1,000 ML IV SCH (10:15)
[2023-06-09] MEDS ORDERED: diphenhdrAMINE HCL 50 MG/1 ML VL IV PRN (10:15)
[2023-06-09] MEDS ORDERED: SODIUM CHLORIDE 0.9% 1,000 ML IV ONE (10:15)
[2023-06-09] MEDS ORDERED: ETOMIDATE (2MG/ML) 20ML VIAL IV ONE ×2 (10:21→10:30)
[2023-06-09] MEDS ORDERED: SUCCINYLCHOLINE CHLORIDE 20 MG/ML 10ML VIAL IV ONE ×2 (10:22→10:30)
[2023-06-09] MEDS ORDERED: MIDAZOLAM DRIP 50 mg/50mL 50 ML IV ONE (10:24)
[2023-06-09] MEDS ORDERED: MIDAZOLAM DRIP 50 mg/50mL 50 ML IV SCH ×2 (10:30→10:45)
[2023-06-09] MEDS ORDERED: LORazepam 2MG/ML-1ML VIAL IV ONE (10:30)
[2023-06-09] MEDS: ENOXAPARIN SOD 40 MG/0.4 ML SYRINGE SC SCH (10:52)
[2023-06-09] MEDS: MAGNESIUM SULFATE 1GM/100ML 100 ML IV SCH ×2 (11:00→12:00)
[2023-06-09 11:19] LABS: Base Excess -5.9 mmol/L (-2.0-2.0)
[2023-06-09] MEDS: fentaNYL Drip 2500mCg/250mlNS 250 ML IV SCH (11:26)
[2023-06-09 12:03] LABS: Base Excess -4.4 mmol/L (-2.0-2.0)
[2023-06-09 12:13] LABS: Basophils # (auto) 0 10 ^3/uL (0-0.2); Basophils % (auto) 0.1 % (0.0-2.0); Eosinophils # (auto) 0 10 ^3/uL (0-0.8); Hematocrit 34.4 % (36.0-46.0); Hemoglobin 11.2 g/dL (12.2-16.2); Lymphocytes # (auto) 0.8 10 ^3/uL (0.4-5.4); Mean Corpuscular Hemoglobin 28.3 pg (28.0-32.0); Mean Corpuscular Hgb Conc. 32.6 g/dL (32.0-36.0); Mean Corpuscular Volume 86.9 fL (80.0-100.0); Monocytes # (auto) 0.2 10 ^3/uL (0-1.3); Monocytes % (auto) 1.4 % (0.0-12.0); Neutrophils # (auto) 12.7 10 ^3/uL (1.6-8.6); Neutrophils % (auto) 92.5 % (37.0-80.0); Nucleated Red Blood Cells % 0.1 %; Red Blood Cells 3.95 10^6/uL (4.0-5.20); Red Cell Distribution Width 18.7 % (11.8-14.3); White Blood Cell 13.7 10^3/uL (4.4-10.8)
[2023-06-09 12:28] LABS: Alanine Aminotransferase 40 U/L (7-40); Albumin 4.3 g/dL (3.2-4.8); Alkaline Phosphatase 84 U/L (46-116); Anion Gap 8 (5-15); Aspartate Aminotransferase 22 U/L (13-40); BUN/Creatinine Ratio 7.7 (10.0-20.0); Bilirubin, Total 0.5 mg/dL (0.2-1.0); Blood Urea Nitrogen 5 mg/dL (9-23); Carbon Dioxide 24 mmol/L (20-30); Chloride 105 mmol/L (98-107); Glucose 195 mg/dL (74-106); INR 1.02 (0.9-1.15); Partial Thromboplastin Time 24.7 SEC (24.5-34.5); Potassium 3.9 mmol/L (3.5-5.1); Prothrombin Time 10.7 sec (9.3-11.8); Sodium 137 mmol/L (136-145); Total Protein 6.3 g/dL (5.7-8.2)
[2023-06-09] MEDS ORDERED: PANTOPRAZOLE 40 MG/10 ML VIAL INJ IV ONE (13:00)
[2023-06-09] MEDS: MIDAZOLAM DRIP 50 mg/50mL 50 ML IV SCH ×3 (14:44→20:08)
[2023-06-09] MEDS: NOREPINEPHRINE 8 MG/250ML KIT 250 ML IV SCH (14:45)
[2023-06-09] MEDS: PIPERACILLIN-TAZOB 3.375GM 100 ML IV SCH ×2 (14:48→21:02)
[2023-06-09] MEDS ORDERED: cefTRIAXone 1GM/50ML D5W 50 ML IV SCH (21:00)
[2023-06-09] MEDS ORDERED: AZITHROMYCIN 500MG/ 250ML 250 ML IV SCH (22:00)
[2023-06-09 22:17] LABS: Urine Bacteria NONE SEEN /hpf (None Seen); Urine Blood 3+ /uL (Negative); Urine Clarity CLOUDY (Clear); Urine Color Yellow (Yellow); Urine Mucus FEW (None Seen); Urine Protein, UAD TRACE (Negative); Urine Specific Gravity 1.025 (1.001-1.035); Urine Urobilinogen Normal (Negative); Urine WBC 9 /hpf (0 - 5); Urine pH 5.5 (5.0-8.0)
[2023-06-10] VITALS (116 sets, daily range): BP systolic 82–140; BP diastolic 45–90; PULSE 81–133; RESP 17–29; TEMP 97.9–99; O2SAT 93–100
[2023-06-10] MEDS: MIDAZOLAM DRIP 50 mg/50mL 50 ML IV SCH ×5 (00:17→23:07)
[2023-06-10] MEDS: ALBUTEROL SULF 2.5 MG/0.5ML(0.5%) NEB SOLN NEB SCH ×5 (02:24→18:56)
[2023-06-10] MEDS: IPRATROPIUM BROM 0.5 MG/2.5ML INH SOL NEB SCH ×5 (02:24→18:55)
[2023-06-10] MEDS: NOREPINEPHRINE 8 MG/250ML KIT 250 ML IV SCH (03:20)
[2023-06-10 04:10] LABS: Basophils # (auto) 0 10 ^3/uL (0-0.2); Eosinophils # (auto) 0 10 ^3/uL (0-0.8); Hematocrit 32.6 % (36.0-46.0); Hemoglobin 10.9 g/dL (12.2-16.2); Lymphocytes # (auto) 1.7 10 ^3/uL (0.4-5.4); Lymphocytes % (auto) 10.6 % (10.0-50.0); Mean Corpuscular Hemoglobin 29.1 pg (28.0-32.0); Mean Corpuscular Hgb Conc. 33.5 g/dL (32.0-36.0); Mean Corpuscular Volume 86.6 fL (80.0-100.0); Monocytes # (auto) 0.5 10 ^3/uL (0-1.3); Monocytes % (auto) 3.1 % (0.0-12.0); Neutrophils # (auto) 13.9 10 ^3/uL (1.6-8.6); Neutrophils % (auto) 86.3 % (37.0-80.0); Red Blood Cells 3.76 10^6/uL (4.0-5.20); Red Cell Distribution Width 18.6 % (11.8-14.3); White Blood Cell 16.1 10^3/uL (4.4-10.8)
[2023-06-10 04:19] LABS: Anion Gap 9 (5-15); Carbon Dioxide 24 mmol/L (20-30); Chloride 105 mmol/L (98-107); Potassium 3.1 mmol/L (3.5-5.1); Sodium 138 mmol/L (136-145)
[2023-06-10 04:25] LABS: Blood Urea Nitrogen 6 mg/dL (9-23); Glucose 184 mg/dL (74-106); Lactic Acid w/Reflex 3.7 mmol/L (0.4-2.0)
[2023-06-10 04:26] LABS: Magnesium 2.2 mg/dL (1.6-2.6)
[2023-06-10] MEDS: POTASSIUM CHL 20MEQ/100ML 100 ML IV SCH ×2 (05:53→07:46)
[2023-06-10] MEDS: PIPERACILLIN-TAZOB 3.375GM 100 ML IV SCH ×3 (05:53→21:02)
[2023-06-10] MEDS ORDERED: ALBUTEROL MEDNEB 2.5 mg/3ml NEB ONE ×5 (06:15→21:48)
[2023-06-10 07:33] LABS: Base Excess -4.2 mmol/L (-2.0-2.0)
[2023-06-10] MEDS ORDERED: FLUMAZENIL 0.1 MG/ML INJ 10ML MDV IV ONE (08:31)
[2023-06-10] MEDS ORDERED: NALOXONE HCL 0.4 MG/ML VIAL ONE (08:31)
[2023-06-10] MEDS ORDERED: GLYCOPYRROLATE 0.2 MG/ML 1ML VIAL ONE (08:31)
[2023-06-10] MEDS ORDERED: EPINEPHrine HCL 1 MG/1 ML AMP ONE (08:31)
[2023-06-10] MEDS ORDERED: LIDOCAINE 2% JELLY 11ml (GLYDO) ONE (08:31)
[2023-06-10] MEDS ORDERED: LIDOCAINE 2%HCL (LOCAL ANESTH.) INJ 20ML MDV ONE (08:31)
[2023-06-10] MEDS ORDERED: SODIUM CHLORIDE LOCK 0 ML ONE (08:31)
[2023-06-10] MEDS ORDERED: MIDAZOLAM HCL 5 MG/ML-1ML VIAL ONE (08:32)
[2023-06-10] MEDS ORDERED: diphenhdrAMINE HCL 50 MG/1 ML VL ONE (08:32)
[2023-06-10] MEDS ORDERED: fentaNYL CITRATE 100 MCG/2 ML VL ONE (08:32)
[2023-06-10] MEDS: GABAPENTIN 300 MG CAP PO SCH ×2 (09:16→21:02)
[2023-06-10] MEDS: PANTOPRAZOLE 40 MG/10 ML VIAL INJ IV SCH (09:16)
[2023-06-10] MEDS: ENOXAPARIN SOD 40 MG/0.4 ML SYRINGE SC SCH (09:17)
[2023-06-10] MEDS: fentaNYL Drip 2500mCg/250mlNS 250 ML IV SCH ×2 (11:00→20:26)
[2023-06-10 11:42] LABS: Chloride 105 mmol/L (98-107); Potassium 3.9 mmol/L (3.5-5.1); Sodium 139 mmol/L (136-145)
[2023-06-10 11:43] LABS: Anion Gap 11 (5-15); Calcium 8.9 mg/dL (8.5-10.1); Carbon Dioxide 23 mmol/L (20-30)
[2023-06-10] MEDS: SODIUM CHLORIDE 0.9% 1,000 ML IV SCH ×2 (11:45→21:45)
[2023-06-10 11:48] LABS: BUN/Creatinine Ratio 10.7 (10.0-20.0); Blood Urea Nitrogen 8 mg/dL (9-23); Glucose 182 mg/dL (74-106)
[2023-06-10 13:14] LABS: Lactic Acid w/Reflex 5.2 mmol/L (0.4-2.0)
[2023-06-11] VITALS (105 sets, daily range): BP systolic 78–141; BP diastolic 45–86; PULSE 71–101; RESP 13–19; TEMP 97.9–98.8; O2SAT 97–100
[2023-06-11] MEDS ORDERED: ALBUTEROL MEDNEB 2.5 mg/3ml NEB ONE ×4 (01:52→22:25)
[2023-06-11] MEDS: IPRATROPIUM BROM 0.5 MG/2.5ML INH SOL NEB SCH ×7 (02:11→22:26)
[2023-06-11] MEDS: ALBUTEROL SULF 2.5 MG/0.5ML(0.5%) NEB SOLN NEB SCH ×7 (02:11→22:26)
[2023-06-11] MEDS: MIDAZOLAM DRIP 50 mg/50mL 50 ML IV SCH ×4 (03:42→16:27)
[2023-06-11 04:00] LABS: Basophils # (auto) 0 10 ^3/uL (0-0.2); Basophils % (auto) 0.1 % (0.0-2.0); Eosinophils # (auto) 0 10 ^3/uL (0-0.8); Hematocrit 29.2 % (36.0-46.0); Hemoglobin 9.9 g/dL (12.2-16.2); Lymphocytes # (auto) 2.4 10 ^3/uL (0.4-5.4); Lymphocytes % (auto) 19.9 % (10.0-50.0); Mean Corpuscular Hemoglobin 29.2 pg (28.0-32.0); Mean Corpuscular Hgb Conc. 33.7 g/dL (32.0-36.0); Mean Corpuscular Volume 86.5 fL (80.0-100.0); Monocytes # (auto) 0.7 10 ^3/uL (0-1.3); Monocytes % (auto) 5.7 % (0.0-12.0); Neutrophils # (auto) 8.9 10 ^3/uL (1.6-8.6); Neutrophils % (auto) 74.3 % (37.0-80.0); Nucleated Red Blood Cells % 0.1 %; Red Blood Cells 3.38 10^6/uL (4.0-5.20); Red Cell Distribution Width 19.2 % (11.8-14.3); White Blood Cell 11.9 10^3/uL (4.4-10.8)
[2023-06-11 04:21] LABS: Chloride 107 mmol/L (98-107); Potassium 3.3 mmol/L (3.5-5.1); Sodium 139 mmol/L (136-145)
[2023-06-11 04:22] LABS: Anion Gap 7 (5-15); Calcium 8.4 mg/dL (8.7-10.4); Carbon Dioxide 25 mmol/L (20-30)
[2023-06-11 04:27] LABS: BUN/Creatinine Ratio 10.6 (10.0-20.0); Blood Urea Nitrogen 7 mg/dL (9-23); Glucose 118 mg/dL (74-106)
[2023-06-11 04:28] LABS: Lactic Acid w/Reflex 2.1 mmol/L (0.4-2.0)
[2023-06-11] MEDS: SODIUM CHLORIDE 0.9% 1,000 ML IV SCH ×3 (04:57→21:29)
[2023-06-11] MEDS: PIPERACILLIN-TAZOB 3.375GM 100 ML IV SCH ×3 (05:00→21:29)
[2023-06-11 08:10] LABS: Base Excess 2.8 mmol/L (-2.0-2.0)
[2023-06-11] MEDS: ENOXAPARIN SOD 40 MG/0.4 ML SYRINGE SC SCH (09:46)
[2023-06-11] MEDS: GABAPENTIN 300 MG CAP PO SCH ×2 (09:50→21:29)
[2023-06-11] MEDS: POTASSIUM CHL 20MEQ/100ML 100 ML IV SCH ×2 (09:50→11:47)
[2023-06-11] MEDS: PANTOPRAZOLE 40 MG/10 ML VIAL INJ IV SCH (09:57)
[2023-06-11] MEDS ORDERED: SODIUM CHLORIDE 0.9% 500 ML IV ONE (12:30)
[2023-06-11] MEDS: Jevity 1.2 Cal/Fiber 1 Liter GT SCH (14:44)
[2023-06-11] MEDS: NOREPINEPHRINE 8 MG/250ML KIT 250 ML IV SCH ×2 (14:45→20:37)
[2023-06-12] VITALS (111 sets, daily range): BP systolic 83–151; BP diastolic 44–103; PULSE 75–135; RESP 15–28; TEMP 98.6–101.5; O2SAT 94–100
[2023-06-12] MEDS ORDERED: ALBUTEROL MEDNEB 2.5 mg/3ml NEB ONE ×3 (02:36→14:32)
[2023-06-12] MEDS: IPRATROPIUM BROM 0.5 MG/2.5ML INH SOL NEB SCH ×6 (02:37→22:38)
[2023-06-12] MEDS: ALBUTEROL SULF 2.5 MG/0.5ML(0.5%) NEB SOLN NEB SCH ×4 (02:37→14:34)
[2023-06-12 04:10] LABS: Basophils # (auto) 0 10 ^3/uL (0-0.2); Basophils % (auto) 0.2 % (0.0-2.0); Eosinophils # (auto) 0 10 ^3/uL (0-0.8); Eosinophils % (auto) 0.3 % (0.0-7.0); Hematocrit 30.1 % (36.0-46.0); Hemoglobin 9.9 g/dL (12.2-16.2); Lymphocytes # (auto) 3.7 10 ^3/uL (0.4-5.4); Lymphocytes % (auto) 27.7 % (10.0-50.0); Mean Corpuscular Hemoglobin 28.6 pg (28.0-32.0); Mean Corpuscular Volume 86.7 fL (80.0-100.0); Monocytes # (auto) 0.7 10 ^3/uL (0-1.3); Monocytes % (auto) 5.5 % (0.0-12.0); Neutrophils # (auto) 8.8 10 ^3/uL (1.6-8.6); Neutrophils % (auto) 66.3 % (37.0-80.0); Nucleated Red Blood Cells % 0.1 %; Red Blood Cells 3.47 10^6/uL (4.0-5.20); Red Cell Distribution Width 19.6 % (11.8-14.3); White Blood Cell 13.2 10^3/uL (4.4-10.8)
[2023-06-12 04:25] LABS: Chloride 110 mmol/L (98-107); Sodium 142 mmol/L (136-145)
[2023-06-12 04:26] LABS: Anion Gap 6 (5-15); Carbon Dioxide 26 mmol/L (20-30)
[2023-06-12 04:27] LABS: Calcium 8.4 mg/dL (8.7-10.4)
[2023-06-12 04:31] LABS: Blood Urea Nitrogen 7 mg/dL (9-23); Glucose 101 mg/dL (74-106)
[2023-06-12 04:58] LABS: BUN/Creatinine Ratio 9.3 (10.0-20.0)
[2023-06-12] MEDS: PIPERACILLIN-TAZOB 3.375GM 100 ML IV SCH ×3 (06:00→21:30)
[2023-06-12 08:15] LABS: Base Excess 4.8 mmol/L (-2.0-2.0)
[2023-06-12] MEDS: ENOXAPARIN SOD 40 MG/0.4 ML SYRINGE SC SCH (10:10)
[2023-06-12] MEDS: PANTOPRAZOLE 40 MG/10 ML VIAL INJ IV SCH (10:10)
[2023-06-12] MEDS: ACETAMINOPHEN 325 MG TAB PO PRN ×2 (10:11→17:33)
[2023-06-12] MEDS: GABAPENTIN 300 MG CAP PO SCH ×2 (10:12→21:30)
[2023-06-12] MEDS: DexmedeTOMIDine 200 MCG in D5W 5% 48 ML IV SCH ×2 (11:32→20:01)
[2023-06-12] MEDS: fentaNYL Drip 2500mCg/250mlNS 250 ML IV SCH (11:52)
[2023-06-12] MEDS ORDERED: VANCOMYCIN PER PHARMACY 0 MG IV ONE (12:15)
[2023-06-12] MEDS ORDERED: ACETAMINOPHEN IV 1000 MG/100ML (10MG/ML) IV ONE (12:15)
[2023-06-12] MEDS ORDERED: VANCOMYCIN 1GM/250ML 250 ML IV ONE (12:45)
[2023-06-12] MEDS: NOREPINEPHRINE 8 MG/250ML KIT 250 ML IV SCH (13:48)
[2023-06-12] MEDS ORDERED: ALBUTEROL MEDNEB 2.5 mg/3ml NEB NEB PRN (14:45)
[2023-06-12] MEDS: Jevity 1.2 Cal/Fiber 1 Liter GT SCH (17:27)
[2023-06-12] MEDS: ALBUTEROL MEDNEB 2.5 mg/3ml NEB NEB SCH ×2 (18:35→22:38)
[2023-06-13] VITALS (90 sets, daily range): BP systolic 84–153; BP diastolic 51–91; PULSE 69–109; RESP 14–31; TEMP 97.3–100.6; O2SAT 95–100
[2023-06-13] MEDS: ALBUTEROL MEDNEB 2.5 mg/3ml NEB NEB SCH ×3 (02:04→10:21)
[2023-06-13] MEDS: IPRATROPIUM BROM 0.5 MG/2.5ML INH SOL NEB SCH ×3 (02:04→10:21)
[2023-06-13 03:57] LABS: Basophils # (auto) 0 10 ^3/uL (0-0.2); Basophils % (auto) 0.3 % (0.0-2.0); Eosinophils # (auto) 0.1 10 ^3/uL (0-0.8); Eosinophils % (auto) 1.3 % (0.0-7.0); Hemoglobin 9.1 g/dL (12.2-16.2); Lymphocytes # (auto) 2.5 10 ^3/uL (0.4-5.4); Lymphocytes % (auto) 23.7 % (10.0-50.0); Mean Corpuscular Hemoglobin 30.4 pg (28.0-32.0); Mean Corpuscular Hgb Conc. 35.1 g/dL (32.0-36.0); Mean Corpuscular Volume 86.5 fL (80.0-100.0); Monocytes # (auto) 0.5 10 ^3/uL (0-1.3); Monocytes % (auto) 4.4 % (0.0-12.0); Neutrophils # (auto) 7.4 10 ^3/uL (1.6-8.6); Neutrophils % (auto) 70.3 % (37.0-80.0); Nucleated Red Blood Cells % 0.1 %; Red Cell Distribution Width 18.7 % (11.8-14.3); White Blood Cell 10.5 10^3/uL (4.4-10.8)
[2023-06-13 04:04] LABS: Chloride 99 mmol/L (98-107); Potassium 3.3 mmol/L (3.5-5.1)
[2023-06-13 04:05] LABS: Anion Gap 9 (5-15); Calcium 8.8 mg/dL (8.7-10.4); Carbon Dioxide 27 mmol/L (20-30)
[2023-06-13 04:10] LABS: BUN/Creatinine Ratio 9.7 (10.0-20.0); Blood Urea Nitrogen 7 mg/dL (9-23); Glucose 156 mg/dL (74-106)
[2023-06-13] MEDS: DexmedeTOMIDine 200 MCG in D5W 5% 48 ML IV SCH ×2 (04:23→18:33)
[2023-06-13 04:26] LABS: Sodium 135 mmol/L (136-145)
[2023-06-13] MEDS: PIPERACILLIN-TAZOB 3.375GM 100 ML IV SCH ×3 (05:33→22:06)
[2023-06-13] MEDS ORDERED: POTASSIUM CHL 20MEQ/100ML 100 ML IV ONE ×2 (08:30→11:15)
[2023-06-13] MEDS: ENOXAPARIN SOD 40 MG/0.4 ML SYRINGE SC SCH (09:15)
[2023-06-13] MEDS: GABAPENTIN 300 MG CAP PO SCH ×2 (09:15→22:00)
[2023-06-13] MEDS: PANTOPRAZOLE 40 MG/10 ML VIAL INJ IV SCH (09:15)
[2023-06-13] MEDS: ACETAMINOPHEN 325 MG TAB PO PRN (09:16)
[2023-06-13] MEDS: fentaNYL Drip 2500mCg/250mlNS 250 ML IV SCH (11:00)
[2023-06-13] MEDS ORDERED: KETOROLAC TROMETH 30 MG/ML 1ML VIAL IV ONE (11:15)
[2023-06-13] MEDS: MIDAZOLAM DRIP 50 mg/50mL 50 ML IV SCH (11:45)
[2023-06-13 12:06] LABS: Base Excess 1.4 mmol/L (-2.0-2.0)
[2023-06-13] MEDS ORDERED: IPRATROPIUM BROM 0.5 MG/2.5ML INH SOL NEB PRN (13:15)
[2023-06-13] MEDS ORDERED: MORPHINE SULFATE INJ 2 MG/ml SYRG IV PRN ×2 (14:30)
[2023-06-13] MEDS: MORPHINE SULFATE INJ 2 MG/ml SYRG IV PRN ×2 (14:42→20:51)
[2023-06-13] MEDS: NOREPINEPHRINE 8 MG/250ML KIT 250 ML IV SCH (14:45)
[2023-06-13] MEDS ORDERED: EPINEPHrine HCL 0.5 ML NEB ONE (15:07)
[2023-06-13] MEDS ORDERED: methylPREDNISolone SOD SUCC 40 MG/ML VL IV ONE (15:15)
[2023-06-13] MEDS ORDERED: EPINEPHrine HCL 0.5 ML NEB NEB ONE (15:15)
[2023-06-13] MEDS: methylPREDNISolone SOD SUCC 40 MG/ML VL IV SCH (22:06)
[2023-06-14] VITALS (11 sets, daily range): BP systolic 115–138; BP diastolic 72–92; PULSE 91–110; RESP 18–30; TEMP 97.7–98.6; O2SAT 94–100
[2023-06-14] MEDS: MORPHINE SULFATE INJ 2 MG/ml SYRG IV PRN ×2 (03:30→10:55)
[2023-06-14] MEDS: DexmedeTOMIDine 200 MCG in D5W 5% 48 ML IV SCH (04:59)
[2023-06-14] MEDS: PIPERACILLIN-TAZOB 3.375GM 100 ML IV SCH ×3 (06:10→22:41)
[2023-06-14 06:32] LABS: Anion Gap 10 (5-15); Carbon Dioxide 23 mmol/L (20-30); Chloride 103 mmol/L (98-107); Potassium 4.4 mmol/L (3.5-5.1); Sodium 136 mmol/L (136-145)
[2023-06-14 06:38] LABS: BUN/Creatinine Ratio 18.5 (10.0-20.0); Blood Urea Nitrogen 10 mg/dL (9-23); Glucose 120 mg/dL (74-106)
[2023-06-14 07:04] LABS: Basophils # (auto) 0 10 ^3/uL (0-0.2); Basophils % (auto) 0.2 % (0.0-2.0); Eosinophils # (auto) 0 10 ^3/uL (0-0.8); Eosinophils % (auto) 0.1 % (0.0-7.0); Hematocrit 38.5 % (36.0-46.0); Hemoglobin 12.7 g/dL (12.2-16.2); Lymphocytes # (auto) 1.3 10 ^3/uL (0.4-5.4); Mean Corpuscular Hemoglobin 28.6 pg (28.0-32.0); Mean Corpuscular Volume 86.8 fL (80.0-100.0); Monocytes # (auto) 0.2 10 ^3/uL (0-1.3); Monocytes % (auto) 1.5 % (0.0-12.0); Neutrophils # (auto) 12.7 10 ^3/uL (1.6-8.6); Neutrophils % (auto) 89.2 % (37.0-80.0); Nucleated Red Blood Cells % 0.1 %; Red Blood Cells 4.44 10^6/uL (4.0-5.20); Red Cell Distribution Width 17.9 % (11.8-14.3); White Blood Cell 14.3 10^3/uL (4.4-10.8)
[2023-06-14] MEDS: GABAPENTIN 300 MG CAP PO SCH ×3 (10:00→22:41)
[2023-06-14] MEDS: methylPREDNISolone SOD SUCC 40 MG/ML VL IV SCH ×2 (10:20→22:41)
[2023-06-14] MEDS: ENOXAPARIN SOD 40 MG/0.4 ML SYRINGE SC SCH (10:20)
[2023-06-14] MEDS: HYDROcodone-ACET 5/325MG TAB PO PRN ×2 (19:04→23:10)
[2023-06-14] MEDS: DOCUSATE SOD 100 MG CAP PO SCH (22:41)
[2023-06-15] VITALS (9 sets, daily range): BP systolic 124–136; BP diastolic 79–94; PULSE 77–102; RESP 18–19; TEMP 97.7–98.8; O2SAT 96–99
[2023-06-15] MEDS: PIPERACILLIN-TAZOB 3.375GM 100 ML IV SCH ×3 (05:45→21:45)
[2023-06-15 06:34] LABS: Basophils # (auto) 0 10 ^3/uL (0-0.2); Basophils % (auto) 0.1 % (0.0-2.0); Eosinophils # (auto) 0 10 ^3/uL (0-0.8); Hematocrit 36.6 % (36.0-46.0); Hemoglobin 12.2 g/dL (12.2-16.2); Lymphocytes # (auto) 1.2 10 ^3/uL (0.4-5.4); Lymphocytes % (auto) 11.7 % (10.0-50.0); Mean Corpuscular Hemoglobin 29.3 pg (28.0-32.0); Mean Corpuscular Hgb Conc. 33.3 g/dL (32.0-36.0); Mean Corpuscular Volume 88.2 fL (80.0-100.0); Monocytes # (auto) 0.3 10 ^3/uL (0-1.3); Monocytes % (auto) 3.4 % (0.0-12.0); Neutrophils # (auto) 8.4 10 ^3/uL (1.6-8.6); Neutrophils % (auto) 84.8 % (37.0-80.0); Red Blood Cells 4.15 10^6/uL (4.0-5.20); Red Cell Distribution Width 17.7 % (11.8-14.3); White Blood Cell 9.9 10^3/uL (4.4-10.8)
[2023-06-15 06:42] LABS: Chloride 104 mmol/L (98-107); Potassium 4.2 mmol/L (3.5-5.1); Sodium 137 mmol/L (136-145)
[2023-06-15 06:43] LABS: Anion Gap 9 (5-15); Calcium 9.6 mg/dL (8.5-10.1); Carbon Dioxide 24 mmol/L (20-30)
[2023-06-15 06:48] LABS: BUN/Creatinine Ratio 16.7 (10.0-20.0); Blood Urea Nitrogen 11 mg/dL (9-23); Glucose 134 mg/dL (74-106)
[2023-06-15] MEDS: ENOXAPARIN SOD 40 MG/0.4 ML SYRINGE SC SCH (09:17)
[2023-06-15] MEDS: methylPREDNISolone SOD SUCC 40 MG/ML VL IV SCH ×2 (09:17→21:45)
[2023-06-15] MEDS: GABAPENTIN 300 MG CAP PO SCH ×2 (09:17→21:45)
[2023-06-15] MEDS: DOCUSATE SOD 100 MG CAP PO SCH ×2 (09:20→21:45)
[2023-06-15] MEDS: OXYCODONE W/ ACETAMINOPHEN 5/325MG TABLET PO PRN ×2 (11:26→18:16)
[2023-06-16] MEDS: OXYCODONE W/ ACETAMINOPHEN 5/325MG TABLET PO PRN ×2 (04:07→10:21)
[2023-06-16] MEDS: PIPERACILLIN-TAZOB 3.375GM 100 ML IV SCH ×2 (06:26→13:31)
[2023-06-16 07:31] VITALS: O2SAT 99
[2023-06-16 08:00] VITALS: PULSE 79
[2023-06-16 09:00] VITALS: BP 141/81; PULSE 85; RESP 20; TEMP 98.1; O2SAT 95
[2023-06-16] MEDS: DOCUSATE SOD 100 MG CAP PO SCH (09:15)
[2023-06-16] MEDS: GABAPENTIN 300 MG CAP PO SCH (09:16)
[2023-06-16] MEDS: ENOXAPARIN SOD 40 MG/0.4 ML SYRINGE SC SCH (09:16)
[2023-06-16] MEDS: methylPREDNISolone SOD SUCC 40 MG/ML VL IV SCH (09:16)
[2023-06-16] MEDS ORDERED: AZIT500T66 PO (10:43)
[2023-06-16] MEDS ORDERED: PRED20TA2 PO (10:43)
[2023-06-16 12:32] VITALS: BP 127/98; PULSE 91; RESP 20; TEMP 97.8; O2SAT 99
== END 2023-06-16 13:47 | disposition home or self-care (01) | DRG 720 ==
LOC: EDBD 19:13 → ER 19:21 → TELE 06-09 03:54 → ICU WEST 06-09 13:13 → TELE-WESTW 06-14 01:15
PROVIDERS: ADMIT Nurse Practitioner; ATTEND Family Medicine
PROC: 5A09357 Assistance with Respiratory Ventilation, Less than 24 Consecutive Hours, Continuous Positive Airway Pressure (ICD-10-PCS; 2023-06-08)
PROC: 5A1955Z Respiratory Ventilation, Greater than 96 Consecutive Hours (ICD-10-PCS; principal; 2023-06-09)
PROC: 0BH17EZ Insertion of Endotracheal Airway into Trachea, Via Natural or Artificial Opening (ICD-10-PCS; 2023-06-09)
PROC: 0B9B8ZZ Drainage of Left Lower Lobe Bronchus, Via Natural or Artificial Opening Endoscopic (ICD-10-PCS; 2023-06-10)
PROC: 0B968ZZ Drainage of Right Lower Lobe Bronchus, Via Natural or Artificial Opening Endoscopic (ICD-10-PCS; 2023-06-10)
PROC: 05H933Z Insertion of Infusion Device into Right Brachial Vein, Percutaneous Approach (ICD-10-PCS; 2023-06-14)
PROC: B54MZZA Ultrasonography of Right Upper Extremity Veins, Guidance (ICD-10-PCS; 2023-06-14)
DX: A41.9 Sepsis, unspecified organism (principal); J96.21 Acute and chronic respiratory failure with hypoxia; R65.21 Severe sepsis with septic shock; J18.9 Pneumonia, unspecified organism; G93.41 Metabolic encephalopathy; G93.1 Anoxic brain damage, not elsewhere classified; J45.901 Unspecified asthma with (acute) exacerbation; E86.0 Dehydration; E87.6 Hypokalemia; E03.9 Hypothyroidism, unspecified; G89.29 Other chronic pain; Z20.822 Contact with and (suspected) exposure to COVID-19; E66.9 Obesity, unspecified; F41.9 Anxiety disorder, unspecified; J98.11 Atelectasis; Z90.49 Acquired absence of other specified parts of digestive tract; Z88.6 Allergy status to analgesic agent; Z83.3 Family history of diabetes mellitus; Z82.3 Family history of stroke; Z79.52 Long term (current) use of systemic steroids; Z68.29 Body mass index [BMI] 29.0-29.9, adult; Z88.8 Allergy status to other drugs, medicaments and biological substances
CPT/HCPCS: 31622; 36415; 36600; 70450; 71045; 71250; 80048; 80053; 81001; 81025; 82805; 82962; 83605; 83735; 83880; 84443; 84484; 85025; 85379; 85610; 85730; 87040; 87070; 87081; 87205; 87426; 87804; 92610; 93005; 93971; 94003; 94640; 94660; 95819; 96361; 96365; 96367; 96372; 96375; 97116; 97163; 97530; 99291; C9113; G0378; J0131; J0171; J0330; J0696; J1100; J2250; J2405; J2543; J3480; J3490; J7060

== ENCOUNTER 2023-07-04 12:05 | Emergency (ER) | payer MEDICAID ==
[~2023-07-04] VITALS: Ht 170.2 cm; Wt 90.1 kg
[~2023-07-04 12:05] MED LIST changes: +AZIT500T66 PO; +PRED20TA2 PO
[2023-07-04 13:20] VITALS: BP 140/89; PULSE 116; RESP 16; TEMP 97; O2SAT 96
[2023-07-04] MEDS ORDERED: HYDROcodone-ACET 5/325MG TAB PO ONE (14:00)
[2023-07-04] MEDS ORDERED: MELO7.5T7 PO (14:15)
== END 2023-07-04 14:16 | disposition home or self-care (01) ==
LOC: ER 12:05
DX: M23.91 Unspecified internal derangement of right knee (principal); J45.909 Unspecified asthma, uncomplicated; E03.9 Hypothyroidism, unspecified; Z90.49 Acquired absence of other specified parts of digestive tract; Z90.89 Acquired absence of other organs; Z79.2 Long term (current) use of antibiotics; Z79.899 Other long term (current) drug therapy; Z88.8 Allergy status to other drugs, medicaments and biological substances
CPT/HCPCS: 73562

== ENCOUNTER 2023-08-03 19:06 | Inpatient (IN) | payer MEDICAID ==
[~2023-08-03] VITALS: Ht 170.2 cm; Wt 90.9 kg
[~2023-08-03 19:06] MED LIST changes: +CIP500T PO; +HYDR-4902 PO; +MELO7.5T7 PO; +MET500T PO; +ZOFR4T PO
[2023-08-03] MEDS ORDERED: IPRATROPIUM BROM 0.5 MG/2.5ML INH SOL NEB ONE (19:15)
[2023-08-03] MEDS ORDERED: MAGNESIUM SULFATE 1GM/100ML 100 ML IV ONE ×2 (19:15→19:41)
[2023-08-03] MEDS ORDERED: SODIUM CHLORIDE 0.9% 1,000 ML IV ONE ×2 (19:15→22:45)
[2023-08-03] MEDS ORDERED: methylPREDNISolone SOD SUCC 125 MG/2 ML VL IV ONE (19:15)
[2023-08-03] MEDS ORDERED: ALBUTEROL SULF 2.5 MG/0.5ML(0.5%) NEB SOLN NEB ONE ×2 (19:15→19:30)
[2023-08-03 19:45] VITALS: PULSE 155; RESP 38; O2SAT 96
[2023-08-03 19:50] VITALS: BP 153/93; PULSE 143; O2SAT 97
[2023-08-03 19:53] LABS: Basophils # (auto) 0 10 ^3/uL (0-0.2); Basophils % (auto) 0.3 % (0.0-2.0); Eosinophils # (auto) 0 10 ^3/uL (0-0.8); Hemoglobin 14.1 g/dL (12.2-16.2); Lymphocytes # (auto) 1.8 10 ^3/uL (0.4-5.4); Mean Corpuscular Hemoglobin 28.8 pg (28.0-32.0); Mean Corpuscular Hgb Conc. 32.9 g/dL (32.0-36.0); Mean Corpuscular Volume 87.4 fL (80.0-100.0); Monocytes # (auto) 0.2 10 ^3/uL (0-1.3); Monocytes % (auto) 2.2 % (0.0-12.0); Neutrophils # (auto) 6.4 10 ^3/uL (1.6-8.6); Neutrophils % (auto) 76.5 % (37.0-80.0); Nucleated Red Blood Cells % 0.1 %; Red Blood Cells 4.91 10^6/uL (4.0-5.20); Red Cell Distribution Width 14.5 % (11.8-14.3); White Blood Cell 8.4 10^3/uL (4.4-10.8)
[2023-08-03] MEDS ORDERED: ONDANSETRON HCL 4 MG/2 ML VIAL IV PRN (21:15)
[2023-08-03] MEDS ORDERED: NITROGLYCERIN 0.4 MG SL TAB SL PRN (21:15)
[2023-08-03] MEDS ORDERED: IPRATROPIUM BROM 0.5 MG/2.5ML INH SOL NEB PRN (21:15)
[2023-08-03] MEDS ORDERED: ALBUTEROL SULF 2.5 MG/0.5ML(0.5%) NEB SOLN NEB PRN (21:15)
[2023-08-03] MEDS ORDERED: TEMAZEPAM 15 MG CAP PO PRN (21:15)
[2023-08-03] MEDS ORDERED: MORPHINE SULFATE INJ 2 MG/ml SYRG IV PRN (21:15)
[2023-08-03] MEDS ORDERED: ACETAMINOPHEN 325 MG TAB PO PRN (21:15)
[2023-08-03 22:00] VITALS: PULSE 119; O2SAT 97
[2023-08-03 22:06] LABS: Base Excess -11.3 mmol/L (-2.0-2.0)
[2023-08-03 22:26] LABS: Chloride 109 mmol/L (98-107); Sodium 141 mmol/L (136-145)
[2023-08-03] MEDS: methylPREDNISolone SOD SUCC 40 MG/ML VL IV SCH (22:35)
[2023-08-03 22:44] LABS: Potassium 2.8 mmol/L (3.5-5.1)
[2023-08-03] MEDS ORDERED: SODIUM BICARBONATE 8.4 % INJ 50ML VIAL IV ONE (22:45)
[2023-08-03 22:49] LABS: Calcium 8.1 mg/dL (8.7-10.4)
[2023-08-03 22:53] LABS: Glucose 302 mg/dL (74-106)
[2023-08-03 22:54] LABS: Alkaline Phosphatase 83 U/L (46-116)
[2023-08-03 22:55] LABS: Aspartate Aminotransferase 36 U/L (13-40)
[2023-08-03] MEDS ORDERED: HYDROcodone-ACET 5/325MG TAB PO ONE (23:00)
[2023-08-03 23:10] LABS: Lactic Acid w/Reflex 7.6 mmol/L (0.4-2.0)
[2023-08-03 23:19] VITALS: BP 146/96; PULSE 119; RESP 28; TEMP 99; O2SAT 98
[2023-08-03] MEDS ORDERED: POTASSIUM CHL 20 Meq TABLET PO ONE (23:30)
[2023-08-03 23:32] LABS: Alanine Aminotransferase 44 U/L (7-40); Albumin 4.3 g/dL (3.2-4.8); BUN/Creatinine Ratio 7.4 (10.0-20.0); Bilirubin, Total 0.2 mg/dL (0.2-1.0); Blood Urea Nitrogen 5 mg/dL (9-23); Total Protein 6.4 g/dL (5.7-8.2)
[2023-08-03 23:37] LABS: Anion Gap 20 (5-15); Carbon Dioxide 12 mmol/L (20-30)
[2023-08-04 00:15] VITALS: PULSE 116; O2SAT 100
[2023-08-04 02:00] VITALS: PULSE 109; O2SAT 99
[2023-08-04] MEDS ORDERED: HYDROcodone-ACET 7.5/325MG TAB PO ONE (03:15)
[2023-08-04 03:44] LABS: COVID19 ANTIGEN SOFIA FIA NEGATIVE (NEGATIVE); Rapid Influenza A Negative (Negative); Rapid Influenza B Negative (Negative)
[2023-08-04 04:03] VITALS: PULSE 98; O2SAT 98
[2023-08-04] MEDS ORDERED: HYDROcodone-ACET 7.5/325MG TAB ONE (04:17)
[2023-08-04 04:32] LABS: Basophils # (auto) 0 10 ^3/uL (0-0.2); Basophils % (auto) 0.2 % (0.0-2.0); Eosinophils # (auto) 0 10 ^3/uL (0-0.8); Eosinophils % (auto) 0.1 % (0.0-7.0); Hematocrit 38.9 % (36.0-46.0); Hemoglobin 12.6 g/dL (12.2-16.2); Lymphocytes # (auto) 0.7 10 ^3/uL (0.4-5.4); Lymphocytes % (auto) 6.5 % (10.0-50.0); Mean Corpuscular Hemoglobin 28.5 pg (28.0-32.0); Mean Corpuscular Hgb Conc. 32.5 g/dL (32.0-36.0); Mean Corpuscular Volume 87.8 fL (80.0-100.0); Monocytes # (auto) 0.1 10 ^3/uL (0-1.3); Monocytes % (auto) 0.8 % (0.0-12.0); Neutrophils # (auto) 9.6 10 ^3/uL (1.6-8.6); Neutrophils % (auto) 92.4 % (37.0-80.0); Nucleated Red Blood Cells % 0.2 %; Red Blood Cells 4.44 10^6/uL (4.0-5.20); Red Cell Distribution Width 14.7 % (11.8-14.3); White Blood Cell 10.4 10^3/uL (4.4-10.8)
[2023-08-04] MEDS ORDERED: IOHEXOL 350 MG/ML 100ML IJ ONE ×2 (04:35→07:39)
[2023-08-04 04:53] LABS: Alanine Aminotransferase 42 U/L (7-40); Albumin 4.4 g/dL (3.2-4.8); Alkaline Phosphatase 78 U/L (46-116); Anion Gap 12 (5-15); Aspartate Aminotransferase 30 U/L (13-40); Calcium 8.7 mg/dL (8.7-10.4); Carbon Dioxide 17 mmol/L (20-30); Chloride 112 mmol/L (98-107); Glucose 218 mg/dL (74-106); Potassium 4.2 mmol/L (3.5-5.1); Sodium 141 mmol/L (136-145)
[2023-08-04 04:54] LABS: Bilirubin, Total 0.2 mg/dL (0.2-1.0); Total Protein 6.5 g/dL (5.7-8.2)
[2023-08-04 05:09] LABS: BUN/Creatinine Ratio 8.8 (10.0-20.0); Blood Urea Nitrogen < 5 mg/dL (9-23)
[2023-08-04 06:05] VITALS: O2SAT 98
[2023-08-04 08:00] VITALS: PULSE 114; RESP 23; O2SAT 95
[2023-08-04] MEDS ORDERED: methylPREDNISolone SOD SUCC 40 MG/ML VL ONE (08:41)
[2023-08-04] MEDS ORDERED: cefTRIAXone 1GM/50ML D5W 50 ML IV ONE (08:41)
[2023-08-04 08:44] LABS: Lactic Acid w/Reflex 3.2 mmol/L (0.4-2.0)
[2023-08-04] MEDS: methylPREDNISolone SOD SUCC 40 MG/ML VL IV SCH (08:48)
[2023-08-04] MEDS ORDERED: cefTRIAXone 1GM/50ML D5W 50 ML IV SCH (09:00)
[2023-08-04] MEDS ORDERED: OXYCODONE W/ ACETAMINOPHEN 5/325MG TABLET PO PRN (10:45)
[2023-08-04] MEDS ORDERED: AZITHROMYCIN 250 MG TAB PO ONE ×2 (15:45→16:25)
[2023-08-04 16:00] VITALS: BP 107/65; PULSE 107; RESP 20; O2SAT 95
[2023-08-04] MEDS ORDERED: AZITTAB PO (16:31)
[2023-08-04] MEDS ORDERED: DOCUSATE SOD 100 MG CAP PO SCH (22:00)
[2023-08-05] MEDS ORDERED: AZITHROMYCIN 250 MG TAB PO SCH (10:00)
== END 2023-08-04 17:00 | disposition home or self-care (01) | DRG 133 ==
LOC: EDUNIT# 19:06 → ER 19:06 → EDBD 19:06 → TELE 21:13
PROVIDERS: ADMIT Nurse Practitioner; ATTEND Nurse Practitioner Acute Care
PROC: 5A09357 Assistance with Respiratory Ventilation, Less than 24 Consecutive Hours, Continuous Positive Airway Pressure (ICD-10-PCS; principal; 2023-08-03)
DX: J96.21 Acute and chronic respiratory failure with hypoxia (principal); J45.902 Unspecified asthma with status asthmaticus; E06.3 Autoimmune thyroiditis; E66.9 Obesity, unspecified; Z68.31 Body mass index [BMI] 31.0-31.9, adult; G89.4 Chronic pain syndrome; M54.9 Dorsalgia, unspecified; M25.561 Pain in right knee; R79.89 Other specified abnormal findings of blood chemistry; Z88.6 Allergy status to analgesic agent; Z90.49 Acquired absence of other specified parts of digestive tract; Z20.822 Contact with and (suspected) exposure to COVID-19
CPT/HCPCS: 36415; 36600; 71045; 71275; 80053; 82805; 83605; 83880; 84443; 84484; 84702; 85025; 85379; 87040; 87077; 87186; 87426; 87804; 94640; 94644; 94660; 96365; 96367; 96375; G0378

== ENCOUNTER 2023-08-11 14:35 | Inpatient (IN) | payer MEDICAID ==
[~2023-08-11] VITALS: Ht 170.2 cm; Wt 92.1 kg
[2023-08-11] VITALS (10 sets, daily range): BP systolic 125–148; BP diastolic 68–96; PULSE 108–129; RESP 13–30; TEMP 98.1; O2SAT 97–100
[~2023-08-11 14:35] MED LIST changes: +AZITTAB PO
[2023-08-11] MEDS ORDERED: ALBUTEROL SULF 2.5 MG/0.5ML(0.5%) NEB SOLN ONE ×2 (14:41→17:49)
[2023-08-11] MEDS ORDERED: MAGNESIUM SULFATE 1GM/100ML 100 ML IV ONE (14:45)
[2023-08-11] MEDS ORDERED: ALBUTEROL SULF 2.5 MG/0.5ML(0.5%) NEB SOLN NEB ONE (14:45)
[2023-08-11] MEDS ORDERED: methylPREDNISolone SOD SUCC 125 MG/2 ML VL IV ONE (14:45)
[2023-08-11 14:56] LABS: Basophils # (auto) 0 10 ^3/uL (0-0.2); Basophils % (auto) 0.2 % (0.0-2.0); Eosinophils # (auto) 0 10 ^3/uL (0-0.8); Hematocrit 42.1 % (36.0-46.0); Hemoglobin 13.9 g/dL (12.2-16.2); Lymphocytes # (auto) 6.1 10 ^3/uL (0.4-5.4); Lymphocytes % (auto) 44.6 % (10.0-50.0); Mean Corpuscular Hemoglobin 28.7 pg (28.0-32.0); Mean Corpuscular Hgb Conc. 32.9 g/dL (32.0-36.0); Mean Corpuscular Volume 87.2 fL (80.0-100.0); Monocytes # (auto) 0.9 10 ^3/uL (0-1.3); Monocytes % (auto) 6.9 % (0.0-12.0); Neutrophils # (auto) 6.6 10 ^3/uL (1.6-8.6); Neutrophils % (auto) 48.3 % (37.0-80.0); Nucleated Red Blood Cells % 0.2 %; Red Blood Cells 4.83 10^6/uL (4.0-5.20); Red Cell Distribution Width 14.2 % (11.8-14.3); White Blood Cell 13.6 10^3/uL (4.4-10.8)
[2023-08-11 15:15] LABS: INR 0.98 (0.9-1.15); Partial Thromboplastin Time 24.3 SEC (24.5-34.5); Prothrombin Time 10.3 sec (9.3-11.8)
[2023-08-11 15:23] LABS: Alanine Aminotransferase 32 U/L (7-40); Albumin 4.8 g/dL (3.2-4.8); Alkaline Phosphatase 105 U/L (46-116); Anion Gap 11 (5-15); Aspartate Aminotransferase 29 U/L (13-40); BUN/Creatinine Ratio 12.7 (10.0-20.0); Blood Urea Nitrogen 9 mg/dL (9-23); Calcium 9.6 mg/dL (8.7-10.4); Carbon Dioxide 23 mmol/L (20-30); Chloride 104 mmol/L (98-107); Glucose 161 mg/dL (74-106); Magnesium 1.8 mg/dL (1.6-2.6); Potassium 3.2 mmol/L (3.5-5.1); Sodium 138 mmol/L (136-145)
[2023-08-11 15:24] LABS: Bilirubin, Total 0.3 mg/dL (0.2-1.0); Total Protein 6.6 g/dL (5.7-8.2)
[2023-08-11] MEDS ORDERED: POTASSIUM CHL 20 Meq TABLET PO ONE (17:15)
[2023-08-11] MEDS ORDERED: ONDANSETRON HCL 4 MG/2 ML VIAL IV PRN (17:15)
[2023-08-11] MEDS ORDERED: MORPHINE SULFATE INJ 2 MG/ml SYRG IV PRN (17:15)
[2023-08-11] MEDS ORDERED: NITROGLYCERIN 0.4 MG SL TAB SL PRN (17:15)
[2023-08-11] MEDS: SODIUM CHLORIDE 0.9% 1,000 ML IV SCH (17:35)
[2023-08-11] MEDS ORDERED: DexAMETHasone SOD PHOS 10MG/1ML VIAL INJ ONE (17:48)
[2023-08-11] MEDS ORDERED: DexAMETHasone SOD PHOS 10MG/1ML VIAL INJ IV ONE (18:00)
[2023-08-11] MEDS: ALBUTEROL SULF 2.5 MG/0.5ML(0.5%) NEB SOLN NEB SCH ×2 (19:43→22:31)
[2023-08-11] MEDS: IPRATROPIUM BROM 0.5 MG/2.5ML INH SOL NEB SCH ×2 (19:43→22:31)
[2023-08-11] MEDS: OXYCODONE W/ ACETAMINOPHEN 5/325MG TABLET PO PRN (20:59)
[2023-08-11] MEDS: MONTELUKAST SODIUM 10 MG TAB PO SCH (22:31)
[2023-08-11] MEDS: methylPREDNISolone SOD SUCC 40 MG/ML VL IV SCH (22:31)
[2023-08-11 23:38] LABS: COVID19 ANTIGEN SOFIA FIA NEGATIVE (NEGATIVE); Rapid Influenza A Negative (Negative); Rapid Influenza B Negative (Negative)
[2023-08-12] VITALS (21 sets, daily range): BP systolic 124–141; BP diastolic 71–91; PULSE 92–130; RESP 14–20; TEMP 97.8–98.3; O2SAT 95–100
[2023-08-12] MEDS: SODIUM CHLORIDE 0.9% 1,000 ML IV SCH ×2 (00:02→06:35)
[2023-08-12] MEDS: ACETAMINOPHEN 325 MG TAB PO PRN (00:03)
[2023-08-12] MEDS: OXYCODONE W/ ACETAMINOPHEN 5/325MG TABLET PO PRN ×4 (03:22→23:06)
[2023-08-12 04:17] LABS: Urine WBC None Seen /hpf (0 - 5)
[2023-08-12 04:32] LABS: Urine Bacteria NONE SEEN /hpf (None Seen); Urine Blood Negative /uL (Negative); Urine Clarity Clear (Clear); Urine Color Colorless (Yellow); Urine Protein, UAD Negative (Negative); Urine Specific Gravity 1.025 (1.001-1.035); Urine Urobilinogen Normal (Negative)
[2023-08-12 05:45] LABS: Basophils # (auto) 0 10 ^3/uL (0-0.2); Basophils % (auto) 0.1 % (0.0-2.0); Eosinophils # (auto) 0 10 ^3/uL (0-0.8); Hematocrit 38.4 % (36.0-46.0); Hemoglobin 12.4 g/dL (12.2-16.2); Lymphocytes # (auto) 0.9 10 ^3/uL (0.4-5.4); Lymphocytes % (auto) 10.2 % (10.0-50.0); Mean Corpuscular Hemoglobin 28.1 pg (28.0-32.0); Mean Corpuscular Hgb Conc. 32.4 g/dL (32.0-36.0); Mean Corpuscular Volume 86.6 fL (80.0-100.0); Monocytes # (auto) 0.1 10 ^3/uL (0-1.3); Monocytes % (auto) 1.2 % (0.0-12.0); Neutrophils # (auto) 7.4 10 ^3/uL (1.6-8.6); Neutrophils % (auto) 88.5 % (37.0-80.0); Red Blood Cells 4.43 10^6/uL (4.0-5.20); Red Cell Distribution Width 14.3 % (11.8-14.3); White Blood Cell 8.4 10^3/uL (4.4-10.8)
[2023-08-12 06:13] LABS: Alanine Aminotransferase 27 U/L (7-40); Alkaline Phosphatase 84 U/L (46-116); Anion Gap 13 (5-15); Aspartate Aminotransferase 14 U/L (13-40); Calcium 9.6 mg/dL (8.5-10.1); Carbon Dioxide 18 mmol/L (20-30); Chloride 107 mmol/L (98-107); Glucose 216 mg/dL (74-106); Potassium 4.2 mmol/L (3.5-5.1); Sodium 138 mmol/L (136-145)
[2023-08-12 06:14] LABS: Albumin 4.5 g/dL (3.2-4.8); BUN/Creatinine Ratio 6.8 (10.0-20.0); Bilirubin, Total 0.2 mg/dL (0.2-1.0); Blood Urea Nitrogen < 5 mg/dL (9-23); Total Protein 6.6 g/dL (5.7-8.2)
[2023-08-12] MEDS: methylPREDNISolone SOD SUCC 40 MG/ML VL IV SCH ×3 (06:15→22:29)
[2023-08-12] MEDS: ALBUTEROL SULF 2.5 MG/0.5ML(0.5%) NEB SOLN NEB SCH ×5 (07:20→21:58)
[2023-08-12] MEDS: IPRATROPIUM BROM 0.5 MG/2.5ML INH SOL NEB SCH ×5 (07:20→21:58)
[2023-08-12] MEDS: PANTOPRAZOLE 40 MG TAB PO SCH (09:28)
[2023-08-12] MEDS ORDERED: BUDESONIDE (INHALATION) 0.5 MG/2 ML NEB NEB ONE (12:15)
[2023-08-12] MEDS: LORazepam 0.5 MG TAB PO PRN (12:21)
[2023-08-12] MEDS: DOXYCYCLINE 100MG/250ML 250 ML IV SCH ×2 (12:22→23:53)
[2023-08-12] MEDS: BUDESONIDE (INHALATION) 0.5 MG/2 ML NEB NEB SCH (19:15)
[2023-08-12] MEDS: MONTELUKAST SODIUM 10 MG TAB PO SCH (22:29)
[2023-08-13] VITALS (20 sets, daily range): BP systolic 104–135; BP diastolic 59–86; PULSE 82–111; RESP 16–20; TEMP 97.9–98.4; O2SAT 95–100
[2023-08-13] MEDS: ACETAMINOPHEN 325 MG TAB PO PRN (05:10)
[2023-08-13] MEDS: ALBUTEROL SULF 2.5 MG/0.5ML(0.5%) NEB SOLN NEB SCH ×6 (05:29→22:57)
[2023-08-13] MEDS: IPRATROPIUM BROM 0.5 MG/2.5ML INH SOL NEB SCH ×6 (05:29→22:57)
[2023-08-13 06:15] LABS: Chloride 106 mmol/L (98-107); Potassium 4.2 mmol/L (3.5-5.1); Sodium 137 mmol/L (136-145)
[2023-08-13 06:16] LABS: Anion Gap 9 (5-15); Calcium 9.3 mg/dL (8.7-10.4); Carbon Dioxide 22 mmol/L (20-30)
[2023-08-13 06:21] LABS: BUN/Creatinine Ratio 12.5 (10.0-20.0); Blood Urea Nitrogen 8 mg/dL (9-23); Glucose 168 mg/dL (74-106); Magnesium 2.1 mg/dL (1.6-2.6)
[2023-08-13] MEDS: methylPREDNISolone SOD SUCC 40 MG/ML VL IV SCH (06:25)
[2023-08-13] MEDS: OXYCODONE W/ ACETAMINOPHEN 5/325MG TABLET PO PRN ×3 (06:26→20:00)
[2023-08-13 06:58] LABS: Basophils # (auto) 0 10 ^3/uL (0-0.2); Basophils % (auto) 0.1 % (0.0-2.0); Eosinophils # (auto) 0 10 ^3/uL (0-0.8); Hematocrit 36.7 % (36.0-46.0); Hemoglobin 11.9 g/dL (12.2-16.2); Lymphocytes # (auto) 1.2 10 ^3/uL (0.4-5.4); Lymphocytes % (auto) 7.5 % (10.0-50.0); Mean Corpuscular Hemoglobin 28.2 pg (28.0-32.0); Mean Corpuscular Hgb Conc. 32.4 g/dL (32.0-36.0); Mean Corpuscular Volume 86.9 fL (80.0-100.0); Monocytes # (auto) 0.4 10 ^3/uL (0-1.3); Monocytes % (auto) 2.8 % (0.0-12.0); Neutrophils # (auto) 14.5 10 ^3/uL (1.6-8.6); Neutrophils % (auto) 89.6 % (37.0-80.0); Red Blood Cells 4.22 10^6/uL (4.0-5.20); Red Cell Distribution Width 14.2 % (11.8-14.3); White Blood Cell 16.2 10^3/uL (4.4-10.8)
[2023-08-13] MEDS: DOXYCYCLINE 100MG/250ML 250 ML IV SCH (08:45)
[2023-08-13] MEDS: PANTOPRAZOLE 40 MG TAB PO SCH (08:46)
[2023-08-13] MEDS: LORazepam 0.5 MG TAB PO PRN (09:24)
[2023-08-13] MEDS: BUDESONIDE (INHALATION) 0.5 MG/2 ML NEB NEB SCH ×2 (09:49→19:11)
[2023-08-13] MEDS: DOXYCYCLINE 100 MG TAB/CAP PO SCH (21:13)
[2023-08-13] MEDS: MONTELUKAST SODIUM 10 MG TAB PO SCH (21:13)
[2023-08-13] MEDS ORDERED: methylPREDNISolone SOD SUCC 40 MG/ML VL IV SCH (22:00)
[2023-08-14] VITALS (19 sets, daily range): BP systolic 120–138; BP diastolic 72–94; PULSE 60–111; RESP 16–18; TEMP 97.9–99.1; O2SAT 72–100
[2023-08-14] MEDS: ALBUTEROL SULF 2.5 MG/0.5ML(0.5%) NEB SOLN NEB SCH ×5 (07:32→21:55)
[2023-08-14] MEDS: IPRATROPIUM BROM 0.5 MG/2.5ML INH SOL NEB SCH ×5 (07:32→21:55)
[2023-08-14] MEDS: BUDESONIDE (INHALATION) 0.5 MG/2 ML NEB NEB SCH ×2 (07:33→21:55)
[2023-08-14] MEDS: PANTOPRAZOLE 40 MG TAB PO SCH (10:22)
[2023-08-14] MEDS: DOXYCYCLINE 100 MG TAB/CAP PO SCH ×2 (10:22→21:15)
[2023-08-14] MEDS: predniSONE 20 MG TAB PO SCH (10:22)
[2023-08-14] MEDS: OXYCODONE W/ ACETAMINOPHEN 5/325MG TABLET PO PRN ×3 (10:22→23:42)
[2023-08-14] MEDS: DOCUSATE SOD 100 MG CAP PO PRN (21:15)
[2023-08-14] MEDS: MONTELUKAST SODIUM 10 MG TAB PO SCH (21:15)
[2023-08-15] VITALS (17 sets, daily range): BP systolic 105–140; BP diastolic 72–84; PULSE 66–101; RESP 14–18; TEMP 97.9–98.5; O2SAT 97–100
[2023-08-15] MEDS: IPRATROPIUM BROM 0.5 MG/2.5ML INH SOL NEB SCH ×5 (06:10→22:30)
[2023-08-15] MEDS: ALBUTEROL SULF 2.5 MG/0.5ML(0.5%) NEB SOLN NEB SCH ×5 (06:10→22:30)
[2023-08-15] MEDS: BUDESONIDE (INHALATION) 0.5 MG/2 ML NEB NEB SCH ×2 (06:10→22:30)
[2023-08-15] MEDS: OXYCODONE W/ ACETAMINOPHEN 5/325MG TABLET PO PRN ×3 (06:21→21:56)
[2023-08-15] MEDS: DOXYCYCLINE 100 MG TAB/CAP PO SCH ×2 (10:26→21:45)
[2023-08-15] MEDS: PANTOPRAZOLE 40 MG TAB PO SCH (10:26)
[2023-08-15] MEDS: predniSONE 20 MG TAB PO SCH (10:27)
[2023-08-15] MEDS: CYCLOBENZAPRINE HCL 10 MG TAB PO SCH (21:46)
[2023-08-15] MEDS: GABAPENTIN 300 MG CAP PO SCH (21:46)
[2023-08-15] MEDS: MONTELUKAST SODIUM 10 MG TAB PO SCH (21:46)
[2023-08-15] MEDS: DOCUSATE SOD 100 MG CAP PO PRN (23:11)
[2023-08-16] VITALS (11 sets, daily range): BP systolic 104–113; BP diastolic 68–74; PULSE 71–103; RESP 16–18; TEMP 98.2–98.5; O2SAT 96–100
[2023-08-16 06:43] LABS: Alanine Aminotransferase 14 U/L (7-40); Albumin 3.9 g/dL (3.2-4.8); Alkaline Phosphatase 66 U/L (46-116); Anion Gap 7 (5-15); Aspartate Aminotransferase 10 U/L (13-40); BUN/Creatinine Ratio 19.4 (10.0-20.0); Blood Urea Nitrogen 12 mg/dL (9-23); Carbon Dioxide 28 mmol/L (20-30); Chloride 104 mmol/L (98-107); Glucose 85 mg/dL (74-106); Potassium 3.6 mmol/L (3.5-5.1); Sodium 139 mmol/L (136-145)
[2023-08-16 06:44] LABS: Bilirubin, Total 0.4 mg/dL (0.2-1.0); Total Protein 5.6 g/dL (5.7-8.2)
[2023-08-16] MEDS: ALBUTEROL SULF 2.5 MG/0.5ML(0.5%) NEB SOLN NEB SCH ×5 (06:45→18:34)
[2023-08-16] MEDS: IPRATROPIUM BROM 0.5 MG/2.5ML INH SOL NEB SCH ×5 (06:45→18:34)
[2023-08-16] MEDS: BUDESONIDE (INHALATION) 0.5 MG/2 ML NEB NEB SCH ×2 (06:45→18:34)
[2023-08-16 07:21] LABS: Basophils # (auto) 0 10 ^3/uL (0-0.2); Basophils % (auto) 0.2 % (0.0-2.0); Eosinophils # (auto) 0 10 ^3/uL (0-0.8); Hematocrit 38.2 % (36.0-46.0); Hemoglobin 12.3 g/dL (12.2-16.2); Lymphocytes # (auto) 4.3 10 ^3/uL (0.4-5.4); Lymphocytes % (auto) 36.2 % (10.0-50.0); Mean Corpuscular Hemoglobin 27.9 pg (28.0-32.0); Mean Corpuscular Hgb Conc. 32.3 g/dL (32.0-36.0); Mean Corpuscular Volume 86.4 fL (80.0-100.0); Monocytes # (auto) 0.6 10 ^3/uL (0-1.3); Monocytes % (auto) 4.9 % (0.0-12.0); Neutrophils % (auto) 58.7 % (37.0-80.0); Nucleated Red Blood Cells % 0.1 %; Red Blood Cells 4.42 10^6/uL (4.0-5.20)
[2023-08-16] MEDS: predniSONE 20 MG TAB PO SCH (09:31)
[2023-08-16] MEDS: GABAPENTIN 300 MG CAP PO SCH (09:31)
[2023-08-16] MEDS: DOXYCYCLINE 100 MG TAB/CAP PO SCH (09:31)
[2023-08-16] MEDS: PANTOPRAZOLE 40 MG TAB PO SCH (09:31)
[2023-08-16] MEDS: CYCLOBENZAPRINE HCL 10 MG TAB PO SCH (09:32)
[2023-08-16] MEDS: OXYCODONE W/ ACETAMINOPHEN 5/325MG TABLET PO PRN ×2 (09:36→16:22)
[2023-08-16] MEDS ORDERED: PRED10TA PO (11:43)
[2023-08-16] MEDS ORDERED: PRED20TA2 PO (11:43)
[2023-08-16] MEDS ORDERED: DOXY-447 PO (11:43)
[2023-08-16] MEDS: DOCUSATE SOD 100 MG CAP PO PRN (14:47)
== END 2023-08-16 18:43 | disposition home or self-care (01) | DRG 141 ==
LOC: ER 14:35 → EDUNIT# 14:35 → EDBD 14:35 → TELE 17:08 → TELE-EAST 08-12 02:06 → EAST 08-15 10:41
PROVIDERS: ADMIT Nurse Practitioner Family; ATTEND Internal Medicine
PROC: 5A09357 Assistance with Respiratory Ventilation, Less than 24 Consecutive Hours, Continuous Positive Airway Pressure (ICD-10-PCS; principal; 2023-08-11)
DX: J45.901 Unspecified asthma with (acute) exacerbation (principal); J96.01 Acute respiratory failure with hypoxia; J15.69 Pneumonia due to other Gram-negative bacteria; J15.9 Unspecified bacterial pneumonia; D72.829 Elevated white blood cell count, unspecified; G89.29 Other chronic pain; E66.9 Obesity, unspecified; Z20.822 Contact with and (suspected) exposure to COVID-19; E01.0 Iodine-deficiency related diffuse (endemic) goiter; Q05.9 Spina bifida, unspecified; Z90.49 Acquired absence of other specified parts of digestive tract; Z88.6 Allergy status to analgesic agent; Z68.31 Body mass index [BMI] 31.0-31.9, adult; Z82.3 Family history of stroke; Z83.3 Family history of diabetes mellitus; Z81.8 Family history of other mental and behavioral disorders; Z80.9 Family history of malignant neoplasm, unspecified
CPT/HCPCS: 36415; 36600; 70490; 71045; 80048; 80053; 81001; 82805; 83735; 83880; 84443; 84484; 84702; 85025; 85610; 85730; 87081; 87426; 87804; 93005; 94640; 94644; 94660; 96365; 96375; 97110; 97163; 97530; A4565; G0378; J1100; J3490

== ENCOUNTER 2023-08-26 18:22 | Inpatient (IN) | payer MEDICAID ==
[~2023-08-26] VITALS: Ht 157.5 cm; Wt 102.0 kg
[~2023-08-26 18:22] MED LIST changes: +DOXY-447 PO; +PRED10TA PO
[2023-08-26 18:30] VITALS: PULSE 130; RESP 35
[2023-08-26] MEDS ORDERED: ALBUTEROL SULF 2.5 MG/0.5ML(0.5%) NEB SOLN NEB ONE (18:30)
[2023-08-26] MEDS ORDERED: IPRATROPIUM BROM 0.5 MG/2.5ML INH SOL NEB ONE (18:30)
[2023-08-26] MEDS ORDERED: DexAMETHasone SOD PHOS 10MG/1ML VIAL INJ IV ONE (18:30)
[2023-08-26] MEDS ORDERED: MAGNESIUM SULFATE 1GM/100ML 100 ML IV ONE ×2 (18:30→18:31)
[2023-08-26] MEDS ORDERED: ALBUTEROL SULF 2.5 MG/0.5ML(0.5%) NEB SOLN ONE (18:33)
[2023-08-26] MEDS ORDERED: IPRATROPIUM BROM 0.5 MG/2.5ML INH SOL ONE (18:33)
[2023-08-26] MEDS ORDERED: BUDESONIDE (INHALATION) 0.5 MG/2 ML NEB ONE (18:39)
[2023-08-26] MEDS ORDERED: BUDESONIDE (INHALATION) 0.5 MG/2 ML NEB NEB ONE (18:45)
[2023-08-26] MEDS ORDERED: methylPREDNISolone SOD SUCC 125 MG/2 ML VL IV ONE (18:45)
[2023-08-26] MEDS ORDERED: FAMOTIDINE (10MG/ML) 2ML VL IV ONE (18:45)
[2023-08-26] MEDS ORDERED: SODIUM CHLORIDE 0.9% 1,000 ML IV ONE ×2 (18:45→22:45)
[2023-08-26 19:20] VITALS: PULSE 127; RESP 31; O2SAT 99
[2023-08-26 19:42] LABS: Basophils # (auto) 0 10 ^3/uL (0-0.2); Basophils % (auto) 0.1 % (0.0-2.0); Eosinophils # (auto) 0 10 ^3/uL (0-0.8); Hematocrit 41.6 % (36.0-46.0); Hemoglobin 13.4 g/dL (12.2-16.2); Lymphocytes # (auto) 1.5 10 ^3/uL (0.4-5.4); Lymphocytes % (auto) 13.6 % (10.0-50.0); Mean Corpuscular Hemoglobin 27.7 pg (28.0-32.0); Mean Corpuscular Hgb Conc. 32.3 g/dL (32.0-36.0); Monocytes # (auto) 0.2 10 ^3/uL (0-1.3); Monocytes % (auto) 1.6 % (0.0-12.0); Neutrophils # (auto) 9.2 10 ^3/uL (1.6-8.6); Neutrophils % (auto) 84.7 % (37.0-80.0); Nucleated Red Blood Cells % 0.1 %; Red Blood Cells 4.84 10^6/uL (4.0-5.20); Red Cell Distribution Width 14.4 % (11.8-14.3); White Blood Cell 10.9 10^3/uL (4.4-10.8)
[2023-08-26 19:53] LABS: Alanine Aminotransferase 27 U/L (7-40); Albumin 4.8 g/dL (3.2-4.8); Alkaline Phosphatase 97 U/L (46-116); Anion Gap 15 (5-15); Aspartate Aminotransferase 22 U/L (13-40); BUN/Creatinine Ratio 10.3 (10.0-20.0); Blood Urea Nitrogen 8 mg/dL (9-23); Calcium 9.6 mg/dL (8.5-10.1); Carbon Dioxide 18 mmol/L (20-30); Chloride 107 mmol/L (98-107); Glucose 244 mg/dL (74-106); Potassium 3.2 mmol/L (3.5-5.1); Sodium 140 mmol/L (136-145)
[2023-08-26 19:54] LABS: Bilirubin, Total 0.2 mg/dL (0.2-1.0); Total Protein 7.1 g/dL (5.7-8.2)
[2023-08-26 20:05] VITALS: PULSE 120; O2SAT 98
[2023-08-26 20:09] LABS: Lactic Acid w/Reflex 5.6 mmol/L (0.4-2.0)
[2023-08-26] MEDS ORDERED: PIPERACILLIN-TAZOB 3.375GM 100 ML IV ONE ×2 (20:15→22:00)
[2023-08-26 20:16] LABS: Base Excess -8.7 mmol/L (-2.0-2.0)
[2023-08-26] MEDS ORDERED: IOHEXOL 350 MG/ML 100ML IJ ONE (20:27)
[2023-08-26] MEDS ORDERED: LORazepam 2MG/ML-1ML VIAL IV ONE (20:45)
[2023-08-26 21:00] VITALS: BP 123/83; PULSE 120; RESP 17; O2SAT 98
[2023-08-26] MEDS ORDERED: IPRATROPIUM BROM 0.5 MG/2.5ML INH SOL NEB PRN (21:15)
[2023-08-26] MEDS ORDERED: VANCOMYCIN PER PHARMACY 0 MG IV SCH (21:15)
[2023-08-26] MEDS ORDERED: ALBUTEROL SULF 2.5 MG/0.5ML(0.5%) NEB SOLN NEB PRN (21:15)
[2023-08-26] MEDS ORDERED: HYDROcodone-ACET 10/325MG TAB PO ONE (21:30)
[2023-08-26 21:54] VITALS: BP 135/84; PULSE 107; O2SAT 99
[2023-08-26] MEDS ORDERED: PIPERACILLIN-TAZOB 3.375GM 100 ML IV SCH (22:00)
[2023-08-26] MEDS ORDERED: VANCOMYCIN 1GM/200ML 200 ML IV ONE (23:00)
[2023-08-26 23:46] VITALS: O2SAT 98
[2023-08-27] VITALS (11 sets, daily range): BP systolic 110–130; BP diastolic 65–84; PULSE 100–132; RESP 18–32; TEMP 97.5–98.8; O2SAT 95–99
[2023-08-27 02:39] LABS: COVID19 ANTIGEN SOFIA FIA NEGATIVE (NEGATIVE)
[2023-08-27 02:40] LABS: Rapid Influenza A Negative (Negative); Rapid Influenza B Negative (Negative)
[2023-08-27 05:37] LABS: Basophils # (auto) 0 10 ^3/uL (0-0.2); Basophils % (auto) 0.1 % (0.0-2.0); Eosinophils # (auto) 0 10 ^3/uL (0-0.8); Hematocrit 38.1 % (36.0-46.0); Hemoglobin 12.2 g/dL (12.2-16.2); Lymphocytes # (auto) 0.7 10 ^3/uL (0.4-5.4); Lymphocytes % (auto) 9.5 % (10.0-50.0); Mean Corpuscular Hemoglobin 28.2 pg (28.0-32.0); Mean Corpuscular Hgb Conc. 32.1 g/dL (32.0-36.0); Mean Corpuscular Volume 88.1 fL (80.0-100.0); Monocytes # (auto) 0.1 10 ^3/uL (0-1.3); Monocytes % (auto) 0.9 % (0.0-12.0); Neutrophils # (auto) 6.6 10 ^3/uL (1.6-8.6); Neutrophils % (auto) 89.5 % (37.0-80.0); Red Blood Cells 4.33 10^6/uL (4.0-5.20); Red Cell Distribution Width 14.1 % (11.8-14.3); White Blood Cell 7.4 10^3/uL (4.4-10.8)
[2023-08-27 05:42] LABS: Chloride 110 mmol/L (98-107); Potassium 4.1 mmol/L (3.5-5.1); Sodium 140 mmol/L (136-145)
[2023-08-27 05:43] LABS: Anion Gap 14 (5-15); Carbon Dioxide 16 mmol/L (20-30)
[2023-08-27 05:44] LABS: Calcium 8.8 mg/dL (8.7-10.4)
[2023-08-27 05:48] LABS: Glucose 166 mg/dL (74-106)
[2023-08-27 05:49] LABS: Magnesium 2.1 mg/dL (1.6-2.6)
[2023-08-27 06:16] LABS: BUN/Creatinine Ratio 8.9 (10.0-20.0); Blood Urea Nitrogen < 5 mg/dL (9-23)
[2023-08-27] MEDS ORDERED: IOHEXOL 350 MG/ML 100ML IJ ONE (06:21)
[2023-08-27] MEDS: PIPERACILLIN-TAZOB 3.375GM 100 ML IV SCH ×3 (06:31→22:08)
[2023-08-27] MEDS ORDERED: HYDROcodone-ACET 10/325MG TAB PO PRN (07:15)
[2023-08-27] MEDS ORDERED: VANCOMYCIN 1GM/200ML 200 ML IV SCH (09:00)
[2023-08-27] MEDS ORDERED: methylPREDNISolone SOD SUCC 125 MG/2 ML VL IV SCH (10:00)
[2023-08-27] MEDS: ENOXAPARIN SOD 40 MG/0.4 ML SYRINGE SC SCH (10:31)
[2023-08-27] MEDS ORDERED: OXYCODONE W/ ACETAMINOPHEN 5/325MG TABLET PO PRN (13:45)
[2023-08-27] MEDS: OXYCODONE W/ ACETAMINOPHEN 5/325MG TABLET PO PRN ×2 (14:12→22:05)
[2023-08-27] MEDS: GABAPENTIN 300 MG CAP PO SCH ×2 (16:24→22:05)
[2023-08-27] MEDS: CYCLOBENZAPRINE HCL 10 MG TAB PO PRN (16:24)
[2023-08-27] MEDS: methylPREDNISolone SOD SUCC 40 MG/ML VL IV SCH ×2 (16:34→22:05)
[2023-08-27] MEDS ORDERED: IPRATROPIUM BROM 0.5 MG/2.5ML INH SOL NEB PRN (16:45)
[2023-08-27] MEDS: IPRATROPIUM BROM 0.5 MG/2.5ML INH SOL NEB SCH (16:52)
[2023-08-27] MEDS ORDERED: ALBUTEROL SULF 2.5 MG/0.5ML(0.5%) NEB SOLN NEB SCH (18:00)
[2023-08-27] MEDS: ALBUTEROL SULF 2.5 MG/0.5ML(0.5%) NEB SOLN NEB SCH (18:05)
[2023-08-27] MEDS ORDERED: SODIUM CHLORIDE 0.9% 1,000 ML IV ONE (19:15)
[2023-08-27 19:55] LABS: Lactic Acid w/Reflex 3.4 mmol/L (0.4-2.0)
[2023-08-27] MEDS: FAMOTIDINE 20 MG TAB PO SCH (22:05)
[2023-08-27] MEDS: MONTELUKAST SODIUM 10 MG TAB PO SCH (22:05)
[2023-08-27] MEDS: ALBUTEROL SULF 2.5 MG/0.5ML(0.5%) NEB SOLN NEB PRN (22:45)
[2023-08-27] MEDS: BUDESONIDE (INHALATION) 0.5 MG/2 ML NEB NEB SCH (22:46)
[2023-08-27] MEDS ORDERED: MONT10TA23 PO (23:53)
[2023-08-27] MEDS ORDERED: GABA-1250 PO (23:53)
[2023-08-27] MEDS ORDERED: FAMO-12 PO (23:53)
[2023-08-27] MEDS ORDERED: OXYC325T14 PO (23:54)
[2023-08-28] VITALS (19 sets, daily range): BP systolic 96–130; BP diastolic 65–83; PULSE 55–111; RESP 18–20; TEMP 97.9–98.4; O2SAT 96–100
[2023-08-28] MEDS: SODIUM CHLORIDE 0.9% 1,000 ML IV SCH ×5 (00:01→22:15)
[2023-08-28 00:03] LABS: Amphetamine Screen, Urine Neg (NEGATIVE); Barbiturate Scree,Urine Neg (NEGATIVE); Benzodiazephine Screen, Urine Neg (NEGATIVE); Cannabinoid Screen, Urine Neg (NEGATIVE); Cocaine Screen, Urine Neg (NEGATIVE); Opiate Scree,Urine Pos (NEGATIVE); Phencyclidine Screen, Urine Neg (NEGATIVE)
[2023-08-28 01:29] LABS: Urine Bacteria NONE SEEN /hpf (None Seen); Urine Blood 2+ /uL (Negative); Urine Clarity Clear (Clear); Urine Color Yellow (Yellow); Urine Mucus FEW (None Seen); Urine Protein, UAD 1+ (Negative); Urine Specific Gravity 1.041 (1.001-1.035); Urine Urobilinogen Normal (Negative); Urine WBC 2 /hpf (0 - 5)
[2023-08-28] MEDS: ALBUTEROL SULF 2.5 MG/0.5ML(0.5%) NEB SOLN NEB PRN (02:24)
[2023-08-28 02:44] LABS: Basophils # (auto) 0 10 ^3/uL (0-0.2); Basophils % (auto) 0.1 % (0.0-2.0); Eosinophils # (auto) 0 10 ^3/uL (0-0.8); Hematocrit 35.4 % (36.0-46.0); Hemoglobin 11.1 g/dL (12.2-16.2); Lymphocytes # (auto) 0.8 10 ^3/uL (0.4-5.4); Mean Corpuscular Hemoglobin 27.5 pg (28.0-32.0); Mean Corpuscular Hgb Conc. 31.4 g/dL (32.0-36.0); Mean Corpuscular Volume 87.7 fL (80.0-100.0); Monocytes # (auto) 0.3 10 ^3/uL (0-1.3); Neutrophils # (auto) 12.2 10 ^3/uL (1.6-8.6); Neutrophils % (auto) 91.9 % (37.0-80.0); Red Blood Cells 4.04 10^6/uL (4.0-5.20); Red Cell Distribution Width 14.2 % (11.8-14.3); White Blood Cell 13.3 10^3/uL (4.4-10.8)
[2023-08-28 02:53] LABS: Chloride 109 mmol/L (98-107); Potassium 3.9 mmol/L (3.5-5.1); Sodium 139 mmol/L (136-145)
[2023-08-28 02:54] LABS: Anion Gap 10 (5-15); Calcium 8.9 mg/dL (8.7-10.4); Carbon Dioxide 20 mmol/L (20-30)
[2023-08-28 02:59] LABS: BUN/Creatinine Ratio 12.3 (10.0-20.0); Blood Urea Nitrogen 8 mg/dL (9-23); Glucose 197 mg/dL (74-106)
[2023-08-28 03:13] LABS: Lactic Acid w/Reflex 4.2 mmol/L (0.4-2.0)
[2023-08-28] MEDS: methylPREDNISolone SOD SUCC 40 MG/ML VL IV SCH ×4 (03:35→20:54)
[2023-08-28] MEDS: PIPERACILLIN-TAZOB 3.375GM 100 ML IV SCH ×3 (05:21→20:54)
[2023-08-28] MEDS: ALBUTEROL SULF 2.5 MG/0.5ML(0.5%) NEB SOLN NEB SCH ×3 (06:44→18:31)
[2023-08-28] MEDS: IPRATROPIUM BROM 0.5 MG/2.5ML INH SOL NEB SCH ×3 (06:44→18:31)
[2023-08-28] MEDS: GABAPENTIN 300 MG CAP PO SCH ×2 (08:38→20:55)
[2023-08-28] MEDS: ENOXAPARIN SOD 40 MG/0.4 ML SYRINGE SC SCH (08:38)
[2023-08-28] MEDS: FAMOTIDINE 20 MG TAB PO SCH ×2 (08:39→20:54)
[2023-08-28] MEDS: OXYCODONE W/ ACETAMINOPHEN 5/325MG TABLET PO PRN ×2 (09:01→20:58)
[2023-08-28] MEDS: CYCLOBENZAPRINE HCL 10 MG TAB PO PRN (12:52)
[2023-08-28] MEDS: BUDESONIDE (INHALATION) 0.5 MG/2 ML NEB NEB SCH ×2 (13:07→22:01)
[2023-08-28 13:27] LABS: Lactic Acid w/Reflex 2.5 mmol/L (0.4-2.0)
[2023-08-28] MEDS: MONTELUKAST SODIUM 10 MG TAB PO SCH (20:54)
[2023-08-29] VITALS (9 sets, daily range): BP systolic 120–147; BP diastolic 78–88; PULSE 60–97; RESP 18–20; TEMP 97.9–98.5; O2SAT 93–100
[2023-08-29] MEDS: methylPREDNISolone SOD SUCC 40 MG/ML VL IV SCH ×3 (03:55→15:57)
[2023-08-29] MEDS: OXYCODONE W/ ACETAMINOPHEN 5/325MG TABLET PO PRN ×2 (03:55→12:57)
[2023-08-29] MEDS: PIPERACILLIN-TAZOB 3.375GM 100 ML IV SCH ×2 (06:03→13:45)
[2023-08-29] MEDS: SODIUM CHLORIDE 0.9% 1,000 ML IV SCH ×2 (06:07→14:46)
[2023-08-29 06:36] LABS: Lactic Acid w/Reflex 2.2 mmol/L (0.4-2.0)
[2023-08-29] MEDS: ALBUTEROL SULF 2.5 MG/0.5ML(0.5%) NEB SOLN NEB SCH ×3 (07:41→19:05)
[2023-08-29] MEDS: BUDESONIDE (INHALATION) 0.5 MG/2 ML NEB NEB SCH (07:42)
[2023-08-29] MEDS: IPRATROPIUM BROM 0.5 MG/2.5ML INH SOL NEB SCH ×3 (07:42→19:05)
[2023-08-29] MEDS: ENOXAPARIN SOD 40 MG/0.4 ML SYRINGE SC SCH (08:46)
[2023-08-29] MEDS: FAMOTIDINE 20 MG TAB PO SCH (08:46)
[2023-08-29] MEDS: GABAPENTIN 300 MG CAP PO SCH (08:46)
[2023-08-29] MEDS ORDERED: AMOX500T86 PO (14:59)
[2023-08-29] MEDS ORDERED: MONT10TA23 PO (14:59)
[2023-08-29] MEDS ORDERED: FLUT250M2 INH (14:59)
[2023-08-29] MEDS ORDERED: IPRA0.00 IN (14:59)
[2023-08-29] MEDS ORDERED: PRED20TA2 PO (14:59)
== END 2023-08-29 19:07 | disposition home or self-care (01) | DRG 141 ==
LOC: EDBD 18:22 → ER 18:22 → TELE 21:19 → TELE-EAST 08-27 23:04
PROVIDERS: ADMIT Hospitalist; ATTEND Hospitalist
PROC: 5A09357 Assistance with Respiratory Ventilation, Less than 24 Consecutive Hours, Continuous Positive Airway Pressure (ICD-10-PCS; principal; 2023-08-26)
PROC: 5A09357 Assistance with Respiratory Ventilation, Less than 24 Consecutive Hours, Continuous Positive Airway Pressure (ICD-10-PCS; 2023-08-27)
DX: J45.901 Unspecified asthma with (acute) exacerbation (principal); K76.0 Fatty (change of) liver, not elsewhere classified; E03.9 Hypothyroidism, unspecified; M23.90 Unspecified internal derangement of unspecified knee; Z68.39 Body mass index [BMI] 39.0-39.9, adult; E66.01 Morbid (severe) obesity due to excess calories; F17.200 Nicotine dependence, unspecified, uncomplicated; Z20.822 Contact with and (suspected) exposure to COVID-19; G89.29 Other chronic pain; Z82.3 Family history of stroke; Z83.3 Family history of diabetes mellitus; Z88.6 Allergy status to analgesic agent
CPT/HCPCS: 36415; 36600; 71275; 80048; 80053; 80307; 81001; 82805; 83605; 83735; 83880; 84484; 84702; 85025; 85379; 87040; 87081; 87426; 87804; 93005; 93970; 94640; 94660; 97163; G0378; J1100; J2543; J3490

== ENCOUNTER 2023-11-29 17:38 | Inpatient (IN) | payer MEDICAID ==
[~2023-11-29] VITALS: Ht 170.2 cm; Wt 64.9 kg
[~2023-11-29 17:38] MED LIST changes: +AMOX500T86 PO; -AZIT-74 PO; -AZIT500T66 PO; -AZITTAB PO; -CIP500T PO; -DOXY-447 PO; +FLUT250M2 INH; -IPR002IS NEB; +IPRA0.00 IN; -MELO7.5T7 PO; -MET500T PO; -METH4PAK PO; +MONT10TA23 PO; +OXYC325T14 PO; -PERCOT PO
[2023-11-29] MEDS: methylPREDNISolone SOD SUCC 125 MG/2 ML VL IV ONE (18:30)
[2023-11-29] MEDS: IPRATROPIUM BROM 0.5 MG/2.5ML INH SOL NEB ONE ×2 (18:42→20:36)
[2023-11-29] MEDS: ALBUTEROL SULF 2.5 MG/0.5ML(0.5%) NEB SOLN NEB ONE ×2 (18:42→20:37)
[2023-11-29 18:59] LABS: Basophils # (auto) 0 10 ^3/uL (0-0.2); Basophils % (auto) 0.7 % (0.0-2.0); Eosinophils # (auto) 0.1 10 ^3/uL (0-0.8); Hemoglobin 12.6 g/dL (12.2-16.2); Neutrophils # (auto) 3.1 10 ^3/uL (1.6-8.6); Nucleated Red Blood Cells % 0.1 %
[2023-11-29 19:01] LABS: Hematocrit 38.6 % (36.0-46.0); Lymphocytes # (auto) 2.1 10 ^3/uL (0.4-5.4); Lymphocytes % (auto) 36.1 % (10.0-50.0); Mean Corpuscular Hemoglobin 26.7 pg (28.0-32.0); Mean Corpuscular Hgb Conc. 32.7 g/dL (32.0-36.0); Mean Corpuscular Volume 81.5 fL (80.0-100.0); Monocytes # (auto) 0.5 10 ^3/uL (0-1.3); Monocytes % (auto) 7.8 % (0.0-12.0); Neutrophils % (auto) 53.4 % (37.0-80.0); Red Blood Cells 4.73 10^6/uL (4.0-5.20); Red Cell Distribution Width 13.8 % (11.8-14.3); White Blood Cell 5.8 10^3/uL (4.4-10.8)
[2023-11-29 19:16] LABS: INR 1.01 (0.9-1.15); Partial Thromboplastin Time 27.6 SEC (24.5-34.5); Prothrombin Time 10.6 sec (9.3-11.8)
[2023-11-29 19:32] LABS: Alanine Aminotransferase 54 U/L (7-40); Albumin 4.1 g/dL (3.2-4.8); Alkaline Phosphatase 100 U/L (46-116); Anion Gap 10 (5-15); Aspartate Aminotransferase 44 U/L (13-40); BUN/Creatinine Ratio 12.7 (10.0-20.0); Bilirubin, Total 0.3 mg/dL (0.2-1.0); Blood Urea Nitrogen 8 mg/dL (9-23); Calcium 9.6 mg/dL (8.7-10.4); Carbon Dioxide 23 mmol/L (20-30); Chloride 109 mmol/L (98-107); Glucose 102 mg/dL (74-106); Potassium 3.6 mmol/L (3.5-5.1); Sodium 142 mmol/L (136-145); Total Protein 6.1 g/dL (5.7-8.2)
[2023-11-29 19:37] VITALS: PULSE 96; RESP 13; O2SAT 98
[2023-11-29] MEDS: MAGNESIUM SULFATE 1GM/100ML 200 ML IV ONE (20:01)
[2023-11-29] MEDS: EPINEPHrine HCL 1 MG/1 ML AMP SC ONE ×2 (20:03→20:14)
[2023-11-29 20:06] VITALS: PULSE 82; O2SAT 97
[2023-11-29] MEDS: MAGNESIUM SULFATE 1GM/100ML 100 ML IV SCH (20:12)
[2023-11-29] MEDS ORDERED: MORPHINE SULFATE INJ 2 MG/ml SYRG IV PRN (20:30)
[2023-11-29] MEDS ORDERED: NITROGLYCERIN 0.4 MG SL TAB SL PRN (20:30)
[2023-11-29] MEDS ORDERED: ACETAMINOPHEN 325 MG TAB PO PRN (20:30)
[2023-11-29] MEDS ORDERED: ONDANSETRON HCL 4 MG/2 ML VIAL IV PRN (20:30)
[2023-11-29 21:07] LABS: Base Excess 0.2 mmol/L (-2.0-2.0)
[2023-11-29] MEDS: IOHEXOL 350 MG/ML 100ML IJ ONE (21:37)
[2023-11-29] MEDS: methylPREDNISolone SOD SUCC 40 MG/ML VL IV SCH (22:29)
[2023-11-29] MEDS: PIPERACILLIN-TAZO 4.5GM 100 ML IV ONE (22:29)
[2023-11-29] MEDS: MONTELUKAST SODIUM 10 MG TAB PO SCH (22:29)
[2023-11-29] MEDS: HYDROcodone-ACET 7.5/325MG TAB PO PRN (22:31)
[2023-11-29 23:51] VITALS: BP 123/78; PULSE 94; RESP 20; O2SAT 96
[2023-11-30] VITALS (15 sets, daily range): BP systolic 97–151; BP diastolic 70–102; PULSE 77–133; RESP 18–33; TEMP 97.6–98.1; O2SAT 94–99
[2023-11-30] MEDS: TEMAZEPAM 15 MG CAP PO PRN (01:58)
[2023-11-30 07:05] LABS: Anion Gap 9 (5-15); Carbon Dioxide 21 mmol/L (20-30); Chloride 108 mmol/L (98-107); Sodium 138 mmol/L (136-145)
[2023-11-30 07:06] LABS: Calcium 9.4 mg/dL (8.5-10.1)
[2023-11-30 07:08] LABS: Basophils # (auto) 0 10 ^3/uL (0-0.2); Basophils % (auto) 0.1 % (0.0-2.0); Eosinophils # (auto) 0 10 ^3/uL (0-0.8); Monocytes % (auto) 1.1 % (0.0-12.0)
[2023-11-30 07:10] LABS: Hematocrit 38.5 % (36.0-46.0); Hemoglobin 12.3 g/dL (12.2-16.2); Lymphocytes # (auto) 0.7 10 ^3/uL (0.4-5.4); Lymphocytes % (auto) 14.7 % (10.0-50.0); Mean Corpuscular Hemoglobin 26.4 pg (28.0-32.0); Mean Corpuscular Volume 82.4 fL (80.0-100.0); Monocytes # (auto) 0.1 10 ^3/uL (0-1.3); Neutrophils # (auto) 3.9 10 ^3/uL (1.6-8.6); Neutrophils % (auto) 84.1 % (37.0-80.0); Red Blood Cells 4.67 10^6/uL (4.0-5.20); Red Cell Distribution Width 14.2 % (11.8-14.3); White Blood Cell 4.6 10^3/uL (4.4-10.8)
[2023-11-30 07:11] LABS: Glucose 203 mg/dL (74-106)
[2023-11-30 07:22] LABS: BUN/Creatinine Ratio 7.5 (10.0-20.0); Blood Urea Nitrogen < 5 mg/dL (9-23)
[2023-11-30] MEDS ORDERED: CYCL-839 PO (07:42)
[2023-11-30] MEDS: OXYCODONE W/ ACETAMINOPHEN 5/325MG TABLET PO ONE (12:42)
[2023-11-30] MEDS: FAMOTIDINE 20 MG TAB PO SCH (14:31)
[2023-11-30] MEDS: FERROUS SULFATE 325mg EC TAB PO SCH (17:40)
[2023-11-30] MEDS: OXYCODONE W/ ACETAMINOPHEN 5/325MG TABLET PO PRN (17:46)
[2023-11-30] MEDS: methylPREDNISolone SOD SUCC 40 MG/ML VL ONE (18:14)
[2023-11-30] MEDS: methylPREDNISolone SOD SUCC 125 MG/2 ML VL IV ONE (18:15)
[2023-11-30] MEDS: IPRATROPIUM BROM 0.5 MG/2.5ML INH SOL NEB PRN (18:16)
[2023-11-30] MEDS: ALBUTEROL SULF 2.5 MG/0.5ML(0.5%) NEB SOLN NEB PRN (18:16)
[2023-11-30] MEDS: ALBUTEROL SULF 2.5 MG/0.5ML(0.5%) NEB SOLN NEB ONE (18:17)
[2023-11-30] MEDS: IPRATROPIUM BROM 0.5 MG/2.5ML INH SOL NEB ONE (18:17)
[2023-11-30] MEDS: LORazepam 2MG/ML-1ML VIAL IV PRN (18:19)
[2023-11-30] MEDS: MORPHINE SULFATE INJ 2 MG/ml SYRG ONE (18:38)
[2023-11-30] MEDS: MORPHINE SULFATE INJ 2 MG/ml SYRG IV ONE (18:41)
[2023-11-30] MEDS ORDERED: MAGNESIUM SULFATE 1GM/100ML 100 ML IV SCH (19:00)
[2023-11-30] MEDS: diphenhdrAMINE HCL 50 MG/1 ML VL ONE (19:02)
[2023-11-30] MEDS: diphenhdrAMINE HCL 50 MG/1 ML VL IV ONE (19:03)
[2023-11-30] MEDS ORDERED: ENOXAPARIN SOD 40 MG/0.4 ML SYRINGE SC SCH (20:00)
[2023-11-30 20:13] LABS: Base Excess -3.8 mmol/L (-2.0-2.0)
[2023-11-30] MEDS: GABAPENTIN 300 MG CAP PO SCH (21:00)
[2023-11-30] MEDS: CYCLOBENZAPRINE HCL 10 MG TAB PO SCH (21:01)
[2023-11-30] MEDS: ENOXAPARIN SOD 40 MG/0.4 ML SYRINGE SC SCH (21:03)
[2023-12-01] VITALS (7 sets, daily range): BP systolic 82–124; BP diastolic 51–78; PULSE 70–103; RESP 18–22; TEMP 36.7; O2SAT 94–96
[2023-12-01 06:18] LABS: Basophils # (auto) 0 10 ^3/uL (0-0.2); Eosinophils # (auto) 0 10 ^3/uL (0-0.8); Hemoglobin 11.8 g/dL (12.2-16.2); Lymphocytes # (auto) 1.2 10 ^3/uL (0.4-5.4); Lymphocytes % (auto) 9.7 % (10.0-50.0); Mean Corpuscular Hgb Conc. 31.9 g/dL (32.0-36.0); Mean Corpuscular Volume 81.5 fL (80.0-100.0); Monocytes # (auto) 0.4 10 ^3/uL (0-1.3); Monocytes % (auto) 3.4 % (0.0-12.0); Neutrophils # (auto) 10.8 10 ^3/uL (1.6-8.6); Neutrophils % (auto) 86.9 % (37.0-80.0); Red Blood Cells 4.54 10^6/uL (4.0-5.20); Red Cell Distribution Width 14.6 % (11.8-14.3); White Blood Cell 12.4 10^3/uL (4.4-10.8)
[2023-12-01 06:20] LABS: Chloride 108 mmol/L (98-107); Potassium 4.1 mmol/L (3.5-5.1); Sodium 138 mmol/L (136-145)
[2023-12-01 06:21] LABS: Anion Gap 6 (5-15); Calcium 9.7 mg/dL (8.7-10.4); Carbon Dioxide 24 mmol/L (20-30)
[2023-12-01 06:26] LABS: BUN/Creatinine Ratio 10.4 (10.0-20.0); Blood Urea Nitrogen 7 mg/dL (9-23); Glucose 144 mg/dL (74-106)
[2023-12-01 08:55] LABS: Hepatitis B Surface Antigen Negative (Negative)
[2023-12-01 09:17] LABS: Hepatitis C Antibody Negative (Negative)
[2023-12-01] MEDS: LIDOCAINE 5% TOPICAL PATCH TOP SCH (10:18)
[2023-12-01] MEDS: methylPREDNISolone SOD SUCC 40 MG/ML VL IV SCH (10:18)
[2023-12-01] MEDS ORDERED: PRED20TA2 PO (12:44)
== END 2023-12-01 18:36 | disposition home or self-care (01) | DRG 133 ==
LOC: EDUNIT# 17:38 → EDBD 17:38 → ER 17:38 → TELE 20:32 → TELE-WESTW 20:32
PROVIDERS: ADMIT Nurse Practitioner; ATTEND Internal Medicine Pulmonary Disease
PROC: 05HA33Z Insertion of Infusion Device into Left Brachial Vein, Percutaneous Approach (ICD-10-PCS; principal; 2023-11-29)
PROC: B54NZZA Ultrasonography of Left Upper Extremity Veins, Guidance (ICD-10-PCS; 2023-11-29)
PROC: 5A09357 Assistance with Respiratory Ventilation, Less than 24 Consecutive Hours, Continuous Positive Airway Pressure (ICD-10-PCS; 2023-11-29)
PROC: 5A09357 Assistance with Respiratory Ventilation, Less than 24 Consecutive Hours, Continuous Positive Airway Pressure (ICD-10-PCS; 2023-11-30)
DX: J96.21 Acute and chronic respiratory failure with hypoxia (principal); J45.902 Unspecified asthma with status asthmaticus; F41.9 Anxiety disorder, unspecified; E66.9 Obesity, unspecified; Z68.39 Body mass index [BMI] 39.0-39.9, adult; Z88.6 Allergy status to analgesic agent; Z90.49 Acquired absence of other specified parts of digestive tract; Z98.891 History of uterine scar from previous surgery; Z88.8 Allergy status to other drugs, medicaments and biological substances; D72.828 Other elevated white blood cell count
CPT/HCPCS: 36415; 36600; 71045; 71275; 80048; 80053; 82805; 83605; 83880; 84484; 85025; 85379; 85610; 85730; 86803; 87040; 87081; 87340; 93005; 94640; 94660; 99291; G0378; J0171; J2543

== ENCOUNTER 2024-01-08 00:10 | Inpatient (IN) | payer MEDICAID ==
[~2024-01-08] VITALS: Ht 160 cm; Wt 95.8 kg
[2024-01-08] VITALS (53 sets, daily range): BP systolic 88–178; BP diastolic 46–127; PULSE 61–119; RESP 10–26; TEMP 98–99; O2SAT 95–100
[~2024-01-08 00:10] MED LIST changes: -AMOX500T86 PO; -CYCL-614 PO; +CYCL-839 PO; -DOCU-94 PO; -DUPI1INJ SC; -ERGO1CAP12 PO; -FLUT1AER3 IN; -FLUT250M2 INH; -HYDR-4902 PO; -MONT-8 PO; -MONT10TA23 PO; -PRED10TA PO; -SENN-105 PO; -ZOFR4T PO
[2024-01-08 00:32] LABS: Basophils # (auto) 0.1 10 ^3/uL (0-0.2); Basophils % (auto) 0.6 % (0.0-2.0); Eosinophils # (auto) 0.5 10 ^3/uL (0-0.8); Hematocrit 44.2 % (36.0-46.0); Hemoglobin 14.3 g/dL (12.2-16.2); Lymphocytes # (auto) 4.6 10 ^3/uL (0.4-5.4); Lymphocytes % (auto) 42.6 % (10.0-50.0); Mean Corpuscular Hemoglobin 26.6 pg (28.0-32.0); Mean Corpuscular Hgb Conc. 32.3 g/dL (32.0-36.0); Mean Corpuscular Volume 82.4 fL (80.0-100.0); Monocytes # (auto) 0.7 10 ^3/uL (0-1.3); Monocytes % (auto) 6.4 % (0.0-12.0); Neutrophils # (auto) 4.9 10 ^3/uL (1.6-8.6); Neutrophils % (auto) 45.4 % (37.0-80.0); Nucleated Red Blood Cells % 0.1 %; Red Blood Cells 5.37 10^6/uL (4.0-5.20); Red Cell Distribution Width 15.9 % (11.8-14.3); White Blood Cell 10.8 10^3/uL (4.4-10.8)
[2024-01-08] MEDS: DexAMETHasone SOD PHOS 10MG/1ML VIAL INJ IV ONE (00:33)
[2024-01-08] MEDS: EPINEPHrine HCL 0.5 ML NEB NEB ONE ×2 (00:41→07:30)
[2024-01-08] MEDS: IPRATROPIUM BROM 0.5 MG/2.5ML INH SOL NEB ONE (00:41)
[2024-01-08] MEDS: EPINEPHrine HCL 0.5 ML NEB ONE ×2 (00:42→11:00)
[2024-01-08 00:45] LABS: Chloride 108 mmol/L (98-107); Potassium 3.5 mmol/L (3.5-5.1); Sodium 141 mmol/L (136-145)
[2024-01-08 00:46] LABS: Anion Gap 10 (5-15); Calcium 10.6 mg/dL (8.7-10.4); Carbon Dioxide 23 mmol/L (20-30)
[2024-01-08 00:51] LABS: BUN/Creatinine Ratio 10.7 (10.0-20.0); Blood Urea Nitrogen 8 mg/dL (9-23); Glucose 115 mg/dL (74-106)
[2024-01-08] MEDS: MORPHINE SULFATE INJ 2 MG/ml SYRG IV ONE (03:51)
[2024-01-08] MEDS: ONDANSETRON HCL 4 MG/2 ML VIAL IV ONE (03:52)
[2024-01-08 04:03] LABS: Urine Bacteria FEW /hpf (None Seen); Urine Blood TRACE /uL (Negative); Urine Clarity Clear (Clear); Urine Color Light-Yellow (Yellow); Urine Mucus FEW (None Seen); Urine Protein, UAD Negative (Negative); Urine Urobilinogen Normal (Negative); Urine WBC 2 /hpf (0 - 5)
[2024-01-08] MEDS ORDERED: MORPHINE SULFATE INJ 2 MG/ml SYRG IV PRN (07:15)
[2024-01-08] MEDS ORDERED: NITROGLYCERIN 0.4 MG SL TAB SL PRN (07:15)
[2024-01-08] MEDS ORDERED: ACETAMINOPHEN 325 MG TAB PO PRN (07:15)
[2024-01-08] MEDS ORDERED: DOCUSATE SOD 100 MG CAP PO PRN (07:15)
[2024-01-08] MEDS: methylPREDNISolone SOD SUCC 125 MG/2 ML VL IV ONE (07:21)
[2024-01-08 07:35] LABS: Basophils # (auto) 0 10 ^3/uL (0-0.2); Basophils % (auto) 0.2 % (0.0-2.0); Eosinophils # (auto) 0 10 ^3/uL (0-0.8); Eosinophils % (auto) 0.1 % (0.0-7.0); Hemoglobin 13.9 g/dL (12.2-16.2); Monocytes # (auto) 0.1 10 ^3/uL (0-1.3); White Blood Cell 7.4 10^3/uL (4.4-10.8)
[2024-01-08 07:36] LABS: Hematocrit 42.4 % (36.0-46.0); Mean Corpuscular Hgb Conc. 32.8 g/dL (32.0-36.0); Mean Corpuscular Volume 82.3 fL (80.0-100.0); Monocytes % (auto) 1.4 % (0.0-12.0); Neutrophils # (auto) 6.3 10 ^3/uL (1.6-8.6); Neutrophils % (auto) 84.3 % (37.0-80.0); Nucleated Red Blood Cells % 0.2 %; Red Blood Cells 5.16 10^6/uL (4.0-5.20); Red Cell Distribution Width 15.4 % (11.8-14.3)
[2024-01-08] MEDS: methylPREDNISolone SOD SUCC 125 MG/2 ML VL ONE (07:38)
[2024-01-08] MEDS: ETOMIDATE (2MG/ML) 20ML VIAL IV ONE (07:48)
[2024-01-08] MEDS: ROCURONIUM 10MG/ML 10ML VIAL IV ONE (07:48)
[2024-01-08 07:53] LABS: Alanine Aminotransferase 13 U/L (7-40); Albumin 4.7 g/dL (3.2-4.8); Alkaline Phosphatase 103 U/L (46-116); Anion Gap 10 (5-15); Aspartate Aminotransferase 16 U/L (13-40); BUN/Creatinine Ratio 8.3 (10.0-20.0); Bilirubin, Total 0.3 mg/dL (0.2-1.0); Blood Urea Nitrogen 6 mg/dL (9-23); Calcium 10.2 mg/dL (8.7-10.4); Carbon Dioxide 19 mmol/L (20-30); Chloride 109 mmol/L (98-107); Glucose 152 mg/dL (74-106); Potassium 4.3 mmol/L (3.5-5.1); Sodium 138 mmol/L (136-145)
[2024-01-08] MEDS: MIDAZOLAM DRIP 50 mg/50mL 50 ML IV SCH (07:53)
[2024-01-08 07:54] LABS: Total Protein 7.2 g/dL (5.7-8.2)
[2024-01-08] MEDS: MIDAZOLAM DRIP 50 mg/50mL 50 ML IV ONE (08:06)
[2024-01-08 09:21] LABS: Base Excess -5.3 mmol/L (-2.0-2.0)
[2024-01-08] MEDS: FAMOTIDINE (10MG/ML) 2ML VL IV SCH (09:53)
[2024-01-08] MEDS: fentaNYL Drip 2500mCg/250mlNS 250 ML IV SCH (10:30)
[2024-01-08 10:53] LABS: Amphetamine Screen, Urine Neg (NEGATIVE); Barbiturate Scree,Urine Neg (NEGATIVE); Benzodiazephine Screen, Urine Neg (NEGATIVE); Cannabinoid Screen, Urine Neg (NEGATIVE); Cocaine Screen, Urine Neg (NEGATIVE); Opiate Scree,Urine Neg (NEGATIVE); Phencyclidine Screen, Urine Neg (NEGATIVE)
[2024-01-08] MEDS: MAGNESIUM SULFATE 1GM/100ML 100 ML IV ONE (10:53)
[2024-01-08 11:26] LABS: Magnesium 1.8 mg/dL (1.6-2.6)
[2024-01-08 11:27] LABS: Phosphorus 3.1 mg/dL (2.4-5.1)
[2024-01-08 11:39] LABS: INR 1.05 (0.9-1.15); Partial Thromboplastin Time 24.8 SEC (24.5-34.5); Prothrombin Time 11.1 sec (9.3-11.8)
[2024-01-08] MEDS ORDERED: methylPREDNISolone SOD SUCC 40 MG/ML VL IV SCH (14:00)
[2024-01-08] MEDS ORDERED: CHOL20007 OR (16:32)
[2024-01-08] MEDS ORDERED: DOCU-94 PO (16:32)
[2024-01-08] MEDS ORDERED: OME20GT GT (16:34)
[2024-01-08] MEDS: SODIUM CHLOR 0.9% PF (SALINE LOCK) 10ML VIAL/SYR IV SCH (18:46)
[2024-01-09] VITALS (59 sets, daily range): BP systolic 89–136; BP diastolic 48–87; PULSE 59–110; RESP 11–28; TEMP 98–98.5; O2SAT 89–100
[2024-01-09 03:48] LABS: Eosinophils # (auto) 0 10 ^3/uL (0-0.8); White Blood Cell 9.8 10^3/uL (4.4-10.8)
[2024-01-09 03:51] LABS: Basophils # (auto) 0.1 10 ^3/uL (0-0.2); Basophils % (auto) 0.7 % (0.0-2.0); Hematocrit 36.8 % (36.0-46.0); Lymphocytes # (auto) 1.2 10 ^3/uL (0.4-5.4); Lymphocytes % (auto) 12.6 % (10.0-50.0); Mean Corpuscular Hemoglobin 26.7 pg (28.0-32.0); Mean Corpuscular Hgb Conc. 32.5 g/dL (32.0-36.0); Mean Corpuscular Volume 82.1 fL (80.0-100.0); Monocytes # (auto) 0.7 10 ^3/uL (0-1.3); Monocytes % (auto) 6.8 % (0.0-12.0); Neutrophils # (auto) 7.8 10 ^3/uL (1.6-8.6); Neutrophils % (auto) 79.9 % (37.0-80.0); Red Blood Cells 4.49 10^6/uL (4.0-5.20); Red Cell Distribution Width 15.7 % (11.8-14.3)
[2024-01-09 04:08] LABS: Albumin 4.2 g/dL (3.2-4.8); Alkaline Phosphatase 86 U/L (46-116); Anion Gap 3 (5-15); Aspartate Aminotransferase 10 U/L (13-40); BUN/Creatinine Ratio 19.8 (10.0-20.0); Bilirubin, Total 0.3 mg/dL (0.2-1.0); Blood Urea Nitrogen 17 mg/dL (9-23); Carbon Dioxide 26 mmol/L (20-30); Chloride 111 mmol/L (98-107); Glucose 144 mg/dL (74-106); Magnesium 2.2 mg/dL (1.6-2.6); Phosphorus 4.7 mg/dL (2.4-5.1); Potassium 4.1 mmol/L (3.5-5.1); Sodium 140 mmol/L (136-145); Total Protein 6.2 g/dL (5.7-8.2)
[2024-01-09 04:09] LABS: Alanine Aminotransferase < 9 U/L (7-40)
[2024-01-09] MEDS: SODIUM CHLORIDE 0.9% 1,000 ML IV SCH (06:20)
[2024-01-09 07:04] LABS: Base Excess -3.8 mmol/L (-2.0-2.0)
[2024-01-09] MEDS: methylPREDNISolone SOD SUCC 40 MG/ML VL IV SCH (08:10)
[2024-01-09 10:29] LABS: Free T3 2.9 pg/mL (2.3-4.2)
[2024-01-09 10:30] LABS: Free T4 (Free Thyroxine) 1.08 ng/dL (0.89-1.76)
[2024-01-09 11:09] LABS: Base Excess -0.4 mmol/L (-2.0-2.0)
[2024-01-09] MEDS: ONDANSETRON HCL 4 MG/2 ML VIAL IV PRN (17:39)
[2024-01-09] MEDS: HYDROcodone-ACET 5/325MG TAB PO PRN (17:40)
[2024-01-10] VITALS (18 sets, daily range): BP systolic 96–144; BP diastolic 59–91; PULSE 58–94; RESP 8–23; TEMP 98–98.6; O2SAT 91–99
[2024-01-10 04:16] LABS: Basophils # (auto) 0 10 ^3/uL (0-0.2); Basophils % (auto) 0.1 % (0.0-2.0); Eosinophils # (auto) 0 10 ^3/uL (0-0.8); Eosinophils % (auto) 0.1 % (0.0-7.0); Hemoglobin 10.8 g/dL (12.2-16.2); Lymphocytes # (auto) 2.1 10 ^3/uL (0.4-5.4); Lymphocytes % (auto) 25.9 % (10.0-50.0); Mean Corpuscular Hgb Conc. 32.7 g/dL (32.0-36.0); Mean Corpuscular Volume 82.6 fL (80.0-100.0); Monocytes # (auto) 0.6 10 ^3/uL (0-1.3); Monocytes % (auto) 7.9 % (0.0-12.0); Neutrophils # (auto) 5.4 10 ^3/uL (1.6-8.6); Nucleated Red Blood Cells % 0.1 %; Red Blood Cells 3.99 10^6/uL (4.0-5.20); Red Cell Distribution Width 15.5 % (11.8-14.3); White Blood Cell 8.1 10^3/uL (4.4-10.8)
[2024-01-10 04:27] LABS: Albumin 3.7 g/dL (3.2-4.8); Alkaline Phosphatase 78 U/L (46-116); Anion Gap 6 (5-15); Aspartate Aminotransferase 10 U/L (13-40); BUN/Creatinine Ratio 19.7 (10.0-20.0); Blood Urea Nitrogen 14 mg/dL (9-23); Calcium 8.5 mg/dL (8.5-10.1); Carbon Dioxide 25 mmol/L (20-30); Chloride 111 mmol/L (98-107); Glucose 105 mg/dL (74-106); Magnesium 2.4 mg/dL (1.6-2.6); Potassium 3.8 mmol/L (3.5-5.1); Sodium 142 mmol/L (136-145)
[2024-01-10 04:28] LABS: Bilirubin, Total 0.2 mg/dL (0.2-1.0); Phosphorus 2.7 mg/dL (2.4-5.1); Total Protein 5.6 g/dL (5.7-8.2)
[2024-01-10 04:30] LABS: Alanine Aminotransferase 9 U/L (7-40)
[2024-01-10] MEDS: ALBUTEROL SULF 2.5 MG/0.5ML(0.5%) NEB SOLN NEB PRN (05:15)
[2024-01-10] MEDS ORDERED: THROAT LOZENGES(CEPASTAT) MT PRN (07:00)
[2024-01-10] MEDS ORDERED: OXYCODONE PO PRN (11:30)
[2024-01-10] MEDS ORDERED: ACETAMINOPHEN PO PRN (11:30)
[2024-01-10] MEDS: OXYCODONE W/ ACETAMINOPHEN 5/325MG TABLET PO PRN (12:16)
[2024-01-10] MEDS: GABAPENTIN 300 MG CAP PO PRN (12:16)
[2024-01-10 14:34] LABS: Hematocrit 36.2 % (36.0-46.0)
[2024-01-10] MEDS ORDERED: ERGOCALCIFEROL 50,000 UNIT(1.25MG) CAP PO SCH (15:00)
[2024-01-10] MEDS: CYCLOBENZAPRINE HCL 10 MG TAB PO SCH (22:00)
[2024-01-11] VITALS (8 sets, daily range): BP systolic 114–141; BP diastolic 66–95; PULSE 52–65; RESP 17–19; TEMP 98–98.4; O2SAT 90–98
[2024-01-11 07:34] LABS: Alkaline Phosphatase 76 U/L (46-116); Anion Gap 8 (5-15); BUN/Creatinine Ratio 14.3 (10.0-20.0); Basophils # (auto) 0 10 ^3/uL (0-0.2); Basophils % (auto) 0.3 % (0.0-2.0); Blood Urea Nitrogen 9 mg/dL (9-23); Calcium 8.9 mg/dL (8.5-10.1); Carbon Dioxide 26 mmol/L (20-30); Chloride 109 mmol/L (98-107); Eosinophils # (auto) 0 10 ^3/uL (0-0.8); Eosinophils % (auto) 0.3 % (0.0-7.0); Glucose 90 mg/dL (74-106); Hematocrit 36.6 % (36.0-46.0); Hemoglobin 12.2 g/dL (12.2-16.2); Lymphocytes # (auto) 3.5 10 ^3/uL (0.4-5.4); Lymphocytes % (auto) 39.2 % (10.0-50.0); Magnesium 2.3 mg/dL (1.6-2.6); Mean Corpuscular Hemoglobin 27.2 pg (28.0-32.0); Mean Corpuscular Hgb Conc. 33.4 g/dL (32.0-36.0); Mean Corpuscular Volume 81.7 fL (80.0-100.0); Monocytes # (auto) 0.6 10 ^3/uL (0-1.3); Monocytes % (auto) 7.1 % (0.0-12.0); Neutrophils # (auto) 4.7 10 ^3/uL (1.6-8.6); Neutrophils % (auto) 53.1 % (37.0-80.0); Nucleated Red Blood Cells % 0.1 %; Potassium 3.6 mmol/L (3.5-5.1); Red Blood Cells 4.48 10^6/uL (4.0-5.20); Red Cell Distribution Width 15.4 % (11.8-14.3); Sodium 143 mmol/L (136-145); White Blood Cell 8.8 10^3/uL (4.4-10.8)
[2024-01-11 07:35] LABS: Albumin 3.8 g/dL (3.2-4.8); Aspartate Aminotransferase 12 U/L (13-40)
[2024-01-11 07:36] LABS: Bilirubin, Total 0.2 mg/dL (0.2-1.0); Total Protein 5.7 g/dL (5.7-8.2)
[2024-01-11 07:38] LABS: Alanine Aminotransferase < 9 U/L (7-40)
[2024-01-11] MEDS: DOCUSATE SOD 100 MG CAP PO SCH (10:18)
[2024-01-11] MEDS ORDERED: PRED20TA2 PO (10:51)
[2024-01-11] MEDS ORDERED: ALB5IS NEB (10:51)
== END 2024-01-11 16:40 | disposition home or self-care (01) | DRG 133 ==
LOC: EDBD 00:10 → ER 00:10 → TELE 07:11 → ICU WEST 14:01 → TELE-CENTR 01-10 23:55
PROVIDERS: ADMIT Internal Medicine Pulmonary Disease; ATTEND Internal Medicine Pulmonary Disease
PROC: 5A1945Z Respiratory Ventilation, 24-96 Consecutive Hours (ICD-10-PCS; principal; 2024-01-08)
PROC: 0BH17EZ Insertion of Endotracheal Airway into Trachea, Via Natural or Artificial Opening (ICD-10-PCS; 2024-01-08)
PROC: 5A09357 Assistance with Respiratory Ventilation, Less than 24 Consecutive Hours, Continuous Positive Airway Pressure (ICD-10-PCS; 2024-01-08)
PROC: 02H633Z Insertion of Infusion Device into Right Atrium, Percutaneous Approach (ICD-10-PCS; 2024-01-08)
DX: J96.01 Acute respiratory failure with hypoxia (principal); J45.901 Unspecified asthma with (acute) exacerbation; J44.9 Chronic obstructive pulmonary disease, unspecified; E06.3 Autoimmune thyroiditis; E66.9 Obesity, unspecified; E83.52 Hypercalcemia; J38.3 Other diseases of vocal cords; F41.9 Anxiety disorder, unspecified; Z90.49 Acquired absence of other specified parts of digestive tract; Z88.6 Allergy status to analgesic agent; Z88.1 Allergy status to other antibiotic agents; Z68.37 Body mass index [BMI] 37.0-37.9, adult
CPT/HCPCS: 36415; 36600; 71045; 76536; 80048; 80053; 80061; 80307; 81001; 82140; 82306; 82607; 82805; 83036; 83605; 83690; 83735; 84100; 84439; 84443; 84481; 85014; 85018; 85025; 85610; 85730; 87070; 87081; 87086; 87205; 93005; 94002; 94003; 94640; 96374; 96375; 99291; G0378; J1100; J2405; J3490

== ENCOUNTER 2024-01-31 15:16 | Emergency (ER) | payer MEDICAID ==
[~2024-01-31] VITALS: Ht 170.2 cm; Wt 95.8 kg
[~2024-01-31 15:16] MED LIST changes: +ALB5IS NEB; +CHOL20007 OR; +DOCU-94 PO; -EPIN0.3I24 IM; -LIDO1PAD55 TOP; +OME20GT GT
[2024-01-31 16:30] LABS: Basophils # (auto) 0 10 ^3/uL (0-0.2); Basophils % (auto) 0.4 % (0.0-2.0); Eosinophils # (auto) 0.2 10 ^3/uL (0-0.8); Eosinophils % (auto) 2.3 % (0.0-7.0); Hemoglobin 13.1 g/dL (12.2-16.2); Lymphocytes # (auto) 2.5 10 ^3/uL (0.4-5.4); Lymphocytes % (auto) 36.1 % (10.0-50.0); Mean Corpuscular Hgb Conc. 32.6 g/dL (32.0-36.0); Mean Corpuscular Volume 82.6 fL (80.0-100.0); Monocytes # (auto) 0.4 10 ^3/uL (0-1.3); Monocytes % (auto) 5.9 % (0.0-12.0); Neutrophils # (auto) 3.8 10 ^3/uL (1.6-8.6); Neutrophils % (auto) 55.3 % (37.0-80.0); Nucleated Red Blood Cells % 0.3 %; Red Blood Cells 4.85 10^6/uL (4.0-5.20); Red Cell Distribution Width 16.2 % (11.8-14.3); White Blood Cell 6.8 10^3/uL (4.4-10.8)
[2024-01-31 16:36] LABS: Alanine Aminotransferase 35 U/L (7-40); Albumin 4.4 g/dL (3.2-4.8); Alkaline Phosphatase 100 U/L (46-116); Anion Gap 7 (5-15); Aspartate Aminotransferase 23 U/L (13-40); BUN/Creatinine Ratio 9.9 (10.0-20.0); Bilirubin, Total 0.2 mg/dL (0.2-1.0); Blood Urea Nitrogen 9 mg/dL (9-23); Calcium 9.7 mg/dL (8.5-10.1); Carbon Dioxide 25 mmol/L (20-30); Chloride 110 mmol/L (98-107); Glucose 101 mg/dL (74-106); Potassium 3.8 mmol/L (3.5-5.1); Sodium 142 mmol/L (136-145); Total Protein 6.4 g/dL (5.7-8.2)
[2024-01-31 17:17] LABS: Lipase 33 U/L (12-53)
[2024-01-31 17:58] LABS: Urine Bacteria None Seen /hpf (None Seen)
[2024-01-31 18:48] LABS: Urine Blood Negative /uL (Negative); Urine Clarity Clear (Clear); Urine Color Yellow (Yellow); Urine Mucus FEW (None Seen); Urine Protein, UAD TRACE (Negative); Urine Specific Gravity 1.024 (1.001-1.035); Urine Urobilinogen Normal (Negative); Urine WBC 1 /hpf (0 - 5); Urine pH 5.5 (5.0-9.0)
[2024-01-31 18:49] VITALS: TEMP 98.1; O2SAT 97
[2024-01-31] MEDS: SODIUM CHLORIDE 0.9% 1,000 ML IV ONE (19:06)
[2024-01-31] MEDS: HYDROcodone-ACET 5/325MG TAB PO ONE (19:09)
[2024-01-31 19:32] VITALS: BP 127/83; PULSE 97; RESP 20
[2024-01-31] MEDS: fentaNYL CITRATE 100 MCG/2 ML VL IV ONE (19:32)
== END 2024-01-31 19:40 | disposition home or self-care (01) ==
LOC: ER 15:16
DX: N83.201 Unspecified ovarian cyst, right side (principal); R10.2 Pelvic and perineal pain; J45.909 Unspecified asthma, uncomplicated; Z76.5 Malingerer [conscious simulation]; Z88.6 Allergy status to analgesic agent; Z90.49 Acquired absence of other specified parts of digestive tract
CPT/HCPCS: 36415; 74176; 80053; 81001; 83605; 83690; 84484; 84702; 85025; 96361; 96374; 99285; J3010; J7030

== ENCOUNTER 2024-02-10 13:34 | Emergency (ER) | payer MEDICAID ==
[~2024-02-10] VITALS: Ht 170.2 cm; Wt 93.8 kg
[2024-02-10 15:12] LABS: Basophils # (auto) 0 10 ^3/uL (0-0.2); Basophils % (auto) 0.6 % (0.0-2.0); Eosinophils # (auto) 0.1 10 ^3/uL (0-0.8); Eosinophils % (auto) 1.7 % (0.0-7.0); Hematocrit 42.4 % (36.0-46.0); Hemoglobin 14.3 g/dL (12.2-16.2); Lymphocytes # (auto) 2.6 10 ^3/uL (0.4-5.4); Lymphocytes % (auto) 38.5 % (10.0-50.0); Mean Corpuscular Hemoglobin 27.8 pg (28.0-32.0); Mean Corpuscular Hgb Conc. 33.8 g/dL (32.0-36.0); Mean Corpuscular Volume 82.1 fL (80.0-100.0); Monocytes # (auto) 0.4 10 ^3/uL (0-1.3); Monocytes % (auto) 5.9 % (0.0-12.0); Neutrophils # (auto) 3.6 10 ^3/uL (1.6-8.6); Neutrophils % (auto) 53.3 % (37.0-80.0); Red Blood Cells 5.16 10^6/uL (4.0-5.20); Red Cell Distribution Width 15.3 % (11.8-14.3); White Blood Cell 6.8 10^3/uL (4.4-10.8)
[2024-02-10 15:20] LABS: Chloride 107 mmol/L (98-107); Potassium 3.5 mmol/L (3.5-5.1); Sodium 140 mmol/L (136-145)
[2024-02-10 15:21] LABS: Anion Gap 8 (5-15); Carbon Dioxide 25 mmol/L (20-30)
[2024-02-10 15:22] LABS: Calcium 10.2 mg/dL (8.5-10.1)
[2024-02-10 15:27] LABS: BUN/Creatinine Ratio 9.6 (10.0-20.0); Blood Urea Nitrogen 7 mg/dL (9-23); Glucose 91 mg/dL (74-106)
[2024-02-10 15:30] LABS: Urine Bacteria None Seen /hpf (None Seen)
[2024-02-10 15:41] VITALS: BP 135/82; PULSE 92; RESP 98; TEMP 98.1; O2SAT 98
[2024-02-10 15:51] LABS: Urine Blood 3+ /uL (Negative); Urine Clarity Turbid (Clear); Urine Color Colorless (Yellow); Urine Mucus FEW (None Seen); Urine Protein, UAD 1+ (Negative); Urine Urobilinogen Normal (Negative); Urine WBC 115 /hpf (0 - 5); Urine WBC Clumps PRESENT /hpf (None Seen); Urine pH 5.5 (5.0-9.0)
[2024-02-10 15:59] LABS: Amphetamine Screen, Urine Neg (NEGATIVE); Barbiturate Scree,Urine Neg (NEGATIVE); Benzodiazephine Screen, Urine Neg (NEGATIVE); Cocaine Screen, Urine Neg (NEGATIVE); Opiate Scree,Urine Neg (NEGATIVE); Phencyclidine Screen, Urine Neg (NEGATIVE)
[2024-02-10 16:00] LABS: Cannabinoid Screen, Urine Neg (NEGATIVE)
[2024-02-10] MEDS ORDERED: NITR-87 PO (16:12)
== END 2024-02-10 16:27 | disposition home or self-care (01) ==
LOC: ER 13:34
DX: N92.0 Excessive and frequent menstruation with regular cycle (principal); N39.0 Urinary tract infection, site not specified; J44.9 Chronic obstructive pulmonary disease, unspecified; E07.9 Disorder of thyroid, unspecified; Z90.49 Acquired absence of other specified parts of digestive tract; Z86.2 Personal history of diseases of the blood and blood-forming organs and certain disorders involving the immune mechanism; Z88.6 Allergy status to analgesic agent; Z88.8 Allergy status to other drugs, medicaments and biological substances; Z79.899 Other long term (current) drug therapy
CPT/HCPCS: 36415; 80048; 80307; 81001; 81025; 85025

== ENCOUNTER 2024-02-25 19:51 | Inpatient (IN) | payer MEDICAID ==
[~2024-02-25] VITALS: Ht 170.2 cm; Wt 93.1 kg
[~2024-02-25 19:51] MED LIST changes: +NITR-87 PO
[2024-02-25] MEDS: ALBUTEROL SULF 2.5 MG/0.5ML(0.5%) NEB SOLN NEB ONE (20:32)
[2024-02-25] MEDS: IPRATROPIUM BROM 0.5 MG/2.5ML INH SOL NEB ONE (20:32)
[2024-02-25 20:40] VITALS: PULSE 113; O2SAT 96
[2024-02-25] MEDS: EPINEPHrine HCL 0.5 ML NEB NEB ONE (20:41)
[2024-02-25] MEDS: DexAMETHasone SOD PHOS 10MG/1ML VIAL INJ IV ONE (21:16)
[2024-02-25 21:37] LABS: Basophils # (auto) 0 10 ^3/uL (0-0.2); Basophils % (auto) 0.3 % (0.0-2.0); Eosinophils # (auto) 0.1 10 ^3/uL (0-0.8); Eosinophils % (auto) 0.9 % (0.0-7.0); Hematocrit 42.1 % (36.0-46.0); Hemoglobin 14.1 g/dL (12.2-16.2); Lymphocytes # (auto) 2.4 10 ^3/uL (0.4-5.4); Lymphocytes % (auto) 29.7 % (10.0-50.0); Mean Corpuscular Hgb Conc. 33.5 g/dL (32.0-36.0); Mean Corpuscular Volume 83.5 fL (80.0-100.0); Monocytes # (auto) 0.6 10 ^3/uL (0-1.3); Monocytes % (auto) 7.4 % (0.0-12.0); Neutrophils % (auto) 61.7 % (37.0-80.0); Red Blood Cells 5.05 10^6/uL (4.0-5.20); Red Cell Distribution Width 14.8 % (11.8-14.3); White Blood Cell 8.1 10^3/uL (4.4-10.8)
[2024-02-25 21:58] LABS: Alanine Aminotransferase 24 U/L (7-40); Alkaline Phosphatase 97 U/L (46-116); Anion Gap 11 (5-15); BUN/Creatinine Ratio 11.8 (10.0-20.0); Blood Urea Nitrogen 8 mg/dL (9-23); Calcium 9.9 mg/dL (8.7-10.4); Carbon Dioxide 21 mmol/L (20-30); Chloride 108 mmol/L (98-107); Glucose 130 mg/dL (74-106); Potassium 3.2 mmol/L (3.5-5.1); Sodium 140 mmol/L (136-145)
[2024-02-25 21:59] LABS: Albumin 4.5 g/dL (3.2-4.8); Aspartate Aminotransferase 17 U/L (13-40); Bilirubin, Total 0.2 mg/dL (0.2-1.0); Total Protein 6.9 g/dL (5.7-8.2)
[2024-02-25 22:03] LABS: Lactic Acid w/Reflex 2.9 mmol/L (0.4-2.0)
[2024-02-25] MEDS: SODIUM CHLORIDE 0.9% 1,000 ML IV ONE (22:27)
[2024-02-26] VITALS (7 sets, daily range): BP systolic 104–130; BP diastolic 71–84; PULSE 72–95; RESP 17–20; TEMP 97.7–98.5; O2SAT 95–97
[2024-02-26] MEDS: SODIUM CHLORIDE 0.9% 1,000 ML IV ONE ×2 (00:33→04:08)
[2024-02-26] MEDS: HYDROcodone-ACET 10/325MG TAB PO ONE (00:55)
[2024-02-26] MEDS: OXYCODONE W/ ACETAMINOPHEN 5/325MG TABLET PO ONE (02:45)
[2024-02-26] MEDS: ALBUTEROL SULF 2.5 MG/0.5ML(0.5%) NEB SOLN NEB ONE (03:53)
[2024-02-26] MEDS: MORPHINE SULFATE 4 MG/ML SYR/VIAL IV ONE (04:08)
[2024-02-26] MEDS ORDERED: ONDANSETRON HCL 4 MG/2 ML VIAL IV PRN (05:30)
[2024-02-26] MEDS ORDERED: diphenhdrAMINE HCL 50 MG/1 ML VL IV PRN (05:30)
[2024-02-26] MEDS ORDERED: ALBUTEROL SULF 2.5 MG/0.5ML(0.5%) NEB SOLN NEB PRN (05:30)
[2024-02-26] MEDS ORDERED: IPRATROPIUM BROM 0.5 MG/2.5ML INH SOL NEB PRN (05:30)
[2024-02-26] MEDS ORDERED: ACETAMINOPHEN 325 MG TAB PO PRN (05:30)
[2024-02-26] MEDS ORDERED: DexAMETHasone SOD PHOS 4 MG/1ML SDV INJ IV SCH (06:00)
[2024-02-26 06:14] LABS: Basophils # (auto) 0 10 ^3/uL (0-0.2); Basophils % (auto) 0.1 % (0.0-2.0); Eosinophils # (auto) 0 10 ^3/uL (0-0.8); Hematocrit 38.4 % (36.0-46.0); Hemoglobin 12.7 g/dL (12.2-16.2); Lymphocytes # (auto) 0.4 10 ^3/uL (0.4-5.4); Lymphocytes % (auto) 8.2 % (10.0-50.0); Mean Corpuscular Hemoglobin 27.4 pg (28.0-32.0); Monocytes # (auto) 0.1 10 ^3/uL (0-1.3); Monocytes % (auto) 1.3 % (0.0-12.0); Neutrophils # (auto) 4.6 10 ^3/uL (1.6-8.6); Neutrophils % (auto) 90.4 % (37.0-80.0); Nucleated Red Blood Cells % 0.1 %; Red Blood Cells 4.62 10^6/uL (4.0-5.20); White Blood Cell 5.1 10^3/uL (4.4-10.8)
[2024-02-26] MEDS ORDERED: MORPHINE SULFATE INJ 2 MG/ml SYRG IV PRN (06:15)
[2024-02-26] MEDS ORDERED: NITROGLYCERIN 0.4 MG SL TAB SL PRN (06:15)
[2024-02-26] MEDS: HYDROcodone-ACET 5/325MG TAB PO PRN (06:18)
[2024-02-26] MEDS: POTASSIUM CHL 20 Meq TABLET PO ONE (06:20)
[2024-02-26 06:43] LABS: Alanine Aminotransferase 22 U/L (7-40); Albumin 4.5 g/dL (3.2-4.8); Alkaline Phosphatase 87 U/L (46-116); Anion Gap 12 (5-15); Aspartate Aminotransferase 12 U/L (13-40); Bilirubin, Total 0.2 mg/dL (0.2-1.0); Calcium 8.8 mg/dL (8.7-10.4); Carbon Dioxide 18 mmol/L (20-30); Chloride 112 mmol/L (98-107); Glucose 196 mg/dL (74-106); Potassium 3.6 mmol/L (3.5-5.1); Sodium 142 mmol/L (136-145); Total Protein 6.5 g/dL (5.7-8.2)
[2024-02-26 06:52] LABS: Lactic Acid w/Reflex 4.8 mmol/L (0.4-2.0)
[2024-02-26 07:01] LABS: BUN/Creatinine Ratio 10.8 (10.0-20.0); Blood Urea Nitrogen 8 mg/dL (9-23)
[2024-02-26 08:20] LABS: Urine Bacteria None Seen /hpf (None Seen)
[2024-02-26 08:27] LABS: Urine Blood TRACE /uL (Negative); Urine Clarity Clear (Clear); Urine Protein, UAD Negative (Negative); Urine Specific Gravity 1.012 (1.001-1.035); Urine Urobilinogen Normal (Negative); Urine WBC <1 /hpf (0 - 5); Urine pH 5.5 (5.0-9.0)
[2024-02-26 08:30] LABS: Urine Color Light-Yellow (Yellow)
[2024-02-26] MEDS: HYDROcodone-ACET 10/325MG TAB PO PRN (11:09)
[2024-02-26] MEDS: cefTRIAXone 1GM/50ML D5W 50 ML IV ONE (11:10)
[2024-02-26] MEDS: SODIUM CHLORIDE 0.9% 1,000 ML IV SCH ×2 (11:10→21:02)
[2024-02-26] MEDS: FAMOTIDINE (10MG/ML) 2ML VL IV SCH (11:11)
[2024-02-26] MEDS: DexAMETHasone SOD PHOS 10MG/1ML VIAL INJ IV SCH (11:11)
[2024-02-26 11:58] LABS: Lactic Acid w/Reflex 2.2 mmol/L (0.4-2.0)
[2024-02-26] MEDS: SODIUM CHLORIDE 0.9% 500 ML IV ONE (12:29)
[2024-02-26] MEDS: AZITHROMYCIN 500MG/ 250ML 250 ML IV SCH (12:42)
[2024-02-26] MEDS: DOCUSATE SOD 100 MG CAP PO PRN (14:35)
[2024-02-26] MEDS: OXYCODONE W/ ACETAMINOPHEN 5/325MG TABLET PO PRN (20:10)
[2024-02-26] MEDS: TEMAZEPAM 15 MG CAP PO ONE (22:40)
[2024-02-27] VITALS (8 sets, daily range): BP systolic 99–120; BP diastolic 47–67; PULSE 58–91; RESP 16–17; TEMP 98.1–98.8; O2SAT 96–99
[2024-02-27] MEDS ORDERED: cefTRIAXone 1GM/50ML D5W 50 ML IV SCH (09:00)
[2024-02-27] MEDS ORDERED: ENOXAPARIN SOD 40 MG/0.4 ML SYRINGE SC SCH (10:00)
[2024-02-27] MEDS ORDERED: DOXYCYCLINE 100 MG TAB/CAP PO SCH (10:00)
[2024-02-27 10:31] LABS: Basophils # (auto) 0 10 ^3/uL (0-0.2); Basophils % (auto) 0.1 % (0.0-2.0); Eosinophils # (auto) 0 10 ^3/uL (0-0.8); Hemoglobin 12.5 g/dL (12.2-16.2); Lymphocytes # (auto) 1.8 10 ^3/uL (0.4-5.4); Lymphocytes % (auto) 16.5 % (10.0-50.0); Mean Corpuscular Hemoglobin 28.7 pg (28.0-32.0); Mean Corpuscular Hgb Conc. 33.8 g/dL (32.0-36.0); Mean Corpuscular Volume 84.8 fL (80.0-100.0); Monocytes # (auto) 0.4 10 ^3/uL (0-1.3); Monocytes % (auto) 3.8 % (0.0-12.0); Neutrophils # (auto) 8.7 10 ^3/uL (1.6-8.6); Neutrophils % (auto) 79.6 % (37.0-80.0); Red Blood Cells 4.36 10^6/uL (4.0-5.20); White Blood Cell 10.9 10^3/uL (4.4-10.8)
[2024-02-27 10:52] LABS: Alanine Aminotransferase 17 U/L (7-40); Alkaline Phosphatase 69 U/L (46-116); Anion Gap 8 (5-15); Aspartate Aminotransferase < 8 U/L (13-40); BUN/Creatinine Ratio 11.9 (10.0-20.0); Bilirubin, Total 0.3 mg/dL (0.2-1.0); Blood Urea Nitrogen 8 mg/dL (9-23); Calcium 9.6 mg/dL (8.7-10.4); Carbon Dioxide 21 mmol/L (20-30); Chloride 111 mmol/L (98-107); Glucose 147 mg/dL (74-106); Potassium 3.5 mmol/L (3.5-5.1); Sodium 140 mmol/L (136-145)
[2024-02-27 11:44] LABS: COVID19 ANTIGEN SOFIA FIA NEGATIVE (NEGATIVE); Rapid Influenza A Negative (Negative); Rapid Influenza B Negative (Negative)
[2024-02-27 12:00] LABS: Lactic Acid w/Reflex 2.6 mmol/L (0.4-2.0)
[2024-02-27] MEDS: predniSONE 20 MG TAB PO SCH (14:47)
== END 2024-02-27 17:45 | disposition home or self-care (01) | DRG 133 ==
LOC: EDBD 19:51 → ER 19:51 → TELE 02-26 06:14 → TELE-CENTR 02-26 08:06
PROVIDERS: ADMIT Internal Medicine Pulmonary Disease; ATTEND Internal Medicine Pulmonary Disease
DX: J96.01 Acute respiratory failure with hypoxia (principal); E87.20 Acidosis, unspecified; J45.901 Unspecified asthma with (acute) exacerbation; J44.89 Other specified chronic obstructive pulmonary disease; E87.6 Hypokalemia; Z20.822 Contact with and (suspected) exposure to COVID-19; M81.0 Age-related osteoporosis without current pathological fracture; Z88.6 Allergy status to analgesic agent; Z79.899 Other long term (current) drug therapy
CPT/HCPCS: 36415; 70490; 71250; 80053; 81001; 83605; 84484; 85025; 87081; 87426; 87804; 93005; 94640; 96361; 96374; G0378; J1100; J3490

== ENCOUNTER 2024-03-26 22:00 | Emergency (ER) | payer MEDICAID ==
[~2024-03-26] VITALS: Ht 167.6 cm; Wt 82.0 kg
[~2024-03-26 22:00] MED LIST changes: -IPRA0.00 IN; -NITR-87 PO; -OME20GT GT
[2024-03-26] MEDS: IPRATROPIUM BROM 0.5 MG/2.5ML INH SOL ONE (22:08)
[2024-03-26] MEDS: ALBUTEROL SULF 2.5 MG/0.5ML(0.5%) NEB SOLN ONE (22:08)
[2024-03-26] MEDS: methylPREDNISolone SOD SUCC 125 MG/2 ML VL IV ONE (22:18)
[2024-03-26] MEDS: MAGNESIUM SULFATE 1GM/100ML 100 ML IV SCH (22:19)
[2024-03-26] MEDS: methylPREDNISolone SOD SUCC 125 MG/2 ML VL ONE (22:19)
[2024-03-26] MEDS: MAGNESIUM SULFATE 1GM/100ML 200 ML IV ONE (22:19)
[2024-03-26] MEDS: KETAMINE 50mg/ML 10ml Vial (500mg/10ml) IV ONE (22:22)
[2024-03-26 22:36] VITALS: PULSE 123; RESP 28; O2SAT 100
[2024-03-26 22:38] LABS: Basophils # (auto) 0.1 10 ^3/uL (0-0.2); Basophils % (auto) 0.6 % (0.0-2.0); Eosinophils # (auto) 0.1 10 ^3/uL (0-0.8); Eosinophils % (auto) 1.4 % (0.0-7.0); Hematocrit 42.1 % (36.0-46.0); Hemoglobin 13.9 g/dL (12.2-16.2); Lymphocytes # (auto) 4.1 10 ^3/uL (0.4-5.4); Lymphocytes % (auto) 41.3 % (10.0-50.0); Mean Corpuscular Hemoglobin 28.2 pg (28.0-32.0); Mean Corpuscular Hgb Conc. 32.9 g/dL (32.0-36.0); Mean Corpuscular Volume 85.7 fL (80.0-100.0); Monocytes # (auto) 0.8 10 ^3/uL (0-1.3); Monocytes % (auto) 8.5 % (0.0-12.0); Neutrophils # (auto) 4.8 10 ^3/uL (1.6-8.6); Neutrophils % (auto) 48.2 % (37.0-80.0); Nucleated Red Blood Cells % 0.1 %; Red Blood Cells 4.92 10^6/uL (4.0-5.20); Red Cell Distribution Width 14.5 % (11.8-14.3); White Blood Cell 9.9 10^3/uL (4.4-10.8)
[2024-03-26] MEDS: IPRATROPIUM BROM 0.5 MG/2.5ML INH SOL NEB ONE (22:38)
[2024-03-26] MEDS: ALBUTEROL SULF 2.5 MG/0.5ML(0.5%) NEB SOLN NEB ONE (22:38)
[2024-03-26 22:40] LABS: Chloride 109 mmol/L (98-107); Potassium 3.9 mmol/L (3.5-5.1); Sodium 142 mmol/L (136-145)
[2024-03-26 22:41] LABS: Anion Gap 13 (5-15); Carbon Dioxide 20 mmol/L (20-30)
[2024-03-26 22:42] LABS: Calcium 9.8 mg/dL (8.7-10.4)
[2024-03-26 22:46] LABS: Glucose 125 mg/dL (74-106)
[2024-03-26 22:52] LABS: BUN/Creatinine Ratio 10.2 (10.0-20.0); Blood Urea Nitrogen 9 mg/dL (9-23)
[2024-03-26 23:00] VITALS: PULSE 108; RESP 27
[2024-03-27 01:00] VITALS: BP 112/71; O2SAT 93
[2024-03-27] MEDS: AZITHROMYCIN 250 MG TAB PO ONE (01:09)
[2024-03-27] MEDS ORDERED: AZIT-185 PO (01:28)
[2024-03-27] MEDS ORDERED: PRED20TA2 PO (01:28)
== END 2024-03-27 01:45 | disposition home or self-care (01) ==
LOC: EDBD 22:00 → ER 22:00
DX: J45.901 Unspecified asthma with (acute) exacerbation (principal); Z90.49 Acquired absence of other specified parts of digestive tract
CPT/HCPCS: 36415; 71045; 80048; 85025; 93005; 94640; 96365; 96366; 96375; 99285; J2919; J3475

== ENCOUNTER 2024-05-11 16:09 | Emergency (ER) | payer MEDICAID ==
[~2024-05-11] VITALS: Ht 170.2 cm; Wt 93.9 kg
[~2024-05-11 16:09] MED LIST changes: +AZIT-185 PO
[2024-05-11 16:37] VITALS: TEMP 98.6; O2SAT 98
[2024-05-11] MEDS ORDERED: HYDROmorphone HCL 2 MG/ML VL/or syr IM ONE (16:45)
[2024-05-11] MEDS: ONDANSETRON ODT 4 MG TAB PO ONE (16:56)
[2024-05-11] MEDS: MEPERIDINE HCL (50 MG/ML) 1 ML VIAL IM ONE (16:56)
[2024-05-11 17:20] VITALS: BP 127/97; PULSE 99; RESP 16
== END 2024-05-11 17:25 | disposition home or self-care (01) ==
LOC: ER 16:09
DX: G89.29 Other chronic pain (principal); M54.50 Low back pain, unspecified; J44.9 Chronic obstructive pulmonary disease, unspecified; Z90.49 Acquired absence of other specified parts of digestive tract; Z88.1 Allergy status to other antibiotic agents; Z88.6 Allergy status to analgesic agent
CPT/HCPCS: 96372; 99283; J2175; Q0162

== ENCOUNTER 2024-07-25 15:47 | Emergency (ER) | payer MEDICAID ==
[~2024-07-25] VITALS: Ht 170.2 cm; Wt 93.0 kg
[2024-07-25] MEDS: DexAMETHasone SOD PHOS 10MG/1ML VIAL INJ PO ONE (16:08)
--- NOTE | 2024-07-25 18:31 | ED.PDOC ---
History of Present Illness HPI Comments 43F with vocal cord dysfunction was sent here from urgent care for 2 days of sore throat. Patient reports her lungs feel clear but her throat feels very sore. She denies any fevers, chills, nausea, vomiting, diarrhea, dysuria, polyuria, sick contacts or recent travel. Chief Complaint: Sore Throat Time Seen by MD: 16:01 Primary Care Provider: ROXIE Reviewed Notes: Nurses Notes Allergies: Coded Allergies: Ibuprofen (Verified Allergy, Unknown, 04/25/23) Levothyroxine (Verified Allergy, Unknown, 04/25/23) Home Meds Active Scripts Azithromycin (ZITHROMAX TABLET) 250 Mg Tb, 250 MG PO DAILY for 5 Days, #5 TAB Prov:JAYNE FARIA MD 03/27/24 Prednisone (Prednisone) 20 Mg Tab, 40 MG PO DAILY for 5 Days, #10 MG Prov:JAYNE FARIA MD 03/27/24 Prednisone (Prednisone) 20 Mg Tab, 20 MG PO DAILY for 5 Days, #5 MG Prov:MAXIME GRIDER RESIDENT 01/11/24 Albuterol Sulfate (Ventolin) 2.5 Mg/0.5 Ml Nb, 2.5 MG NEB Q4HPRN PRN for 30 Days, #30 INH Prov:MAXIME GRIDER RESIDENT 01/11/24 Reported Medications Docusate Sodium (Colace) 100 Mg Cap, 100 MG PO DAILY for CONSTIPATION, CAP 01/08/24 Cholecalciferol (VITAMIN D3) 2,000 Unit Tab, 5000 UNIT OR QWEEKLY for LOW VITAMIN D, TAB 01/08/24 Cyclobenzaprine Hcl (Cyclobenzaprine Hcl) 10 Mg Tab, 5 MG PO BID for MUSCLE RELAXANT for 30 Days, MG 11/30/23 Oxycodone W/ Acetaminophen (Apap/Oxycodone) 1 Tab Tab, 1 TAB PO QID PRN for BACK PAIN,, #90 TAB 10/325 08/27/23 Buprenorphine (BUTRANS) 5 Mcg/Hr Dis, 1 PATCH TOP QWEEKLY 05/07/23 Famotidine (Famotidine) 40 Mg Tab, 1 TAB PO DAILY for GI PREVENTION 03/03/23 Ferrous Sulfate (Ferosul) 325 Mg Tab, 325 PO DAILY for ANEMIA 03/03/23 Gabapentin (Gabapentin) 300 Mg Cap, 300 MG PO BID PRN for NEUROPATHRY LEG PAIN 03/02/23 Information Source: Patient Mode of Arrival: Ambulatory Past Medical History PAST MEDICAL HISTORY: Anemia, Anxiety, Asthma, COPD, Thyroid Surgical History: Appendectomy, Cholecystectomy, , Tonsillectomy CORPORATE SALES TRAINER History: No Pertinent CORPORATE SALES TRAINER History Family History Family History: Reviewed,noncontributory to illness Social History Smoker: Non-Smoker Alcohol: Denies ETOH Use Drugs: Denies Drug Use Lives In: Home EENTM: reports: throat pain All Other Systems: Reviewed and Negative Physical Exam General Appearance: No Apparent Distress, Normal HEENT: Normal ENT Inspection, Pharynx Normal Neck: Full Range of Motion, Non-Tender, Normal, Normal Inspection Respiratory: Chest Non-Tender, Lungs Clear, No Accessory Muscle Use, No Respiratory Distress, Normal Breath Sounds Cardiovascular: No Edema, No JVD, No Murmur, No Gallop, Normal Peripheral Pulses, Regular Rate/Rhythm Breast Exam: Deferred Gastrointestinal: No Organomegaly, Non Tender, No Pulsatile Mass, Normal Bowel Sounds, Soft Genitalia: Deferred Pelvic: Deferred Rectal: Deferred Extremities: No calf tenderness, Normal capillary refill, Normal inspection, Normal range of motion, Non-tender, No pedal edema Musculoskeletal : Apperance: Normal Neurologic: Alert, functional analyst II-XII nml as Tested, No Motor Deficits, Normal Affect, Normal Mood, No Sensory Deficits Cerebellar Function: Normal Reflexes: Normal Skin: Dry, Normal Color, Warm Lymphatic: No Adenopathy Was a procedure done? Was a procedure done?: No Differential Dx Considerations may include: viral syndrome, pharyngitis, X-Ray, Labs, Meds, VS Vital Signs Date Time Temp Pulse Resp B/P (MAP) Pulse Ox O2 Delivery O2 Flow Rate FiO2 07/25/24 15:59 98.6 112 20 131/86 (101) 100 Current Medications Medications (Trade) Dose Ordered Sig/Jessica Route Start Time Stop Time Status Last Admin Dexamethasone Sodium Phosphate (Decadron Injection) 10 mg ONCE ONCE PO 07/25/24 16:15 07/25/24 16:16 DC 07/25/24 16:08 Time of 1ST Reevaluation: 18:30 Reevaluation 1ST: Improved Patient Education/Counseling: Diagnosis, Treatment Family Education/Counseling: No Family Present Departure 1 Departure Time of Disposition: 18:30 (Patient likely with pharyngitis. received decadron and is feeling much better and would like to go home.) Impression: Primary Impression: Pharyngitis Qualified Codes: J02.9 - Acute pharyngitis, unspecified Disposition: 01 HOME / SELF CARE / HOMELESS Condition: Stable Additional Instructions: It is important to follow up with your regular doctor within one week. Discharged With: Self Critical Care Note Critical Care Time?: No Stability Stability form required: JAYNE Brasher MD Jul 25, 2024 18:31
[2024-07-25 18:38] VITALS: BP 120/84; PULSE 103; RESP 20; O2SAT 96
== END 2024-07-25 18:40 | disposition home or self-care (01) ==
LOC: ER 15:47
DX: J02.9 Acute pharyngitis, unspecified (principal); F41.9 Anxiety disorder, unspecified; J44.9 Chronic obstructive pulmonary disease, unspecified; Z86.2 Personal history of diseases of the blood and blood-forming organs and certain disorders involving the immune mechanism; Z90.49 Acquired absence of other specified parts of digestive tract; Z98.890 Other specified postprocedural states; Z88.6 Allergy status to analgesic agent; Z88.8 Allergy status to other drugs, medicaments and biological substances; Z90.89 Acquired absence of other organs; Z79.52 Long term (current) use of systemic steroids; Z79.899 Other long term (current) drug therapy
CPT/HCPCS: 99283; J1100

== ENCOUNTER 2024-08-02 11:17 | Inpatient (IN) | payer MEDICAID ==
[~2024-08-02] VITALS: Ht 170.2 cm; Wt 67.7 kg
[2024-08-02] MEDS: methylPREDNISolone SOD SUCC 125 MG/2 ML VL ONE (11:23)
--- NOTE | 2024-08-02 11:23 | ED.PDOC ---
SOB-HPI HPI Comments 43 year old female DELORIS presents to the ED with chief complaint of SOB. EMS reports patient has been experiencing increasing SOB since today. EMS relays patient was placed on CPAP, but no relief in SOB was noted so patient was then started on bagged O2. EMS states patient has history of asthma and being intubated multiple times in the past, with her last intubation being in April. Patient denies any chest pain, headache, fever, chills, cough, or di zziness. Time Seen by MD: 11:20 Primary Care Provider: ROXIE Lange notes: Nurses Notes, Anthropology Lecturer Notes, Medications, Allergies Information Source: Emergency Med Personnel Mode of Arrival: EMS Severity: Moderate Timing: Hours Duration: Since onset Context: At Rest PE Risk Factors: None History of: Asthma Prehospital treatment: Oxygen Modifying Factors: Nothing Past Medical History PAST MEDICAL HISTORY: Anemia, Anxiety, Asthma, COPD, Thyroid Surgical History: Appendectomy, Cholecystectomy, , Tonsillectomy COMMISSIONS SPECIALIST History: No Pertinent COMMISSIONS SPECIALIST History Family History Family History: Reviewed,noncontributory to illness Social History Smoker: Non-Smoker Alcohol: Denies ETOH Use Drugs: Denies Drug Use Lives In: Home Constitutional: denies: chills, diaphoresis, fatigue, fever, malaise, sweats, weakness, others EENTM: denies: blurred vision, double vision, ear bleeding, ear discharge, ear drainage, ear pain, ear ringing, eye pain, eye redness, hearing loss, mouth pain, mouth swelling, nasal discharge, nose bleeding, nose congestion, nose pain, photophobia, tearing, throat pain, throat swelling, voice changes, others Respiratory: reports: shortness of breath; denies: cough, hemoptysis, orth opnea, SOB at rest, SOB with excertion, stridor, wheezing, others Cardiovascular: denies: chest pain, dizzy spells, diaphoresis, Dyspnea on exertion, edema, irregular heart beat, left arm pain, lightheadedness, palpitations, PND, syncope, others Gastrointestinal: denies: abdomen distended, abdominal pain, blood streaked bowels, constipated, diarrhea, dysphagia, difficulty swallowing, hematemesis, melena, nausea, poor appetite, poor fluid intake, rectal bleeding, rectal pain, vomiting, others Genitourinary: denies: abnormal vagina bleeding, burning, dyspareunia, dysuria, flank pain, frequency, hematuria, incontinence, pain, , vagina discharge, urgency, others Neurological: denies: dizziness, fainting, headache, left sided numbness, left sided weakness, numbness, paresthesia, pre-existing deficit, right sided numbness, right sided weakness, seizure, speech problems, tingling, tremors, weakness, others Musculoskeletal: denies: back pain, gout, joint pain, joint swelling, muscle pain, muscle stiffness, neck pain, others Integumetry: denies: bruises, change in color, change in hair/nails, dryness, laceration, lesions, lumps, rash, wounds, others Allergic/Immunocompromised: denies: Difficulty Healing, Frequent Infections, Hives, Itching, others Hematologic/Lymphatic: denies: anemia, blood clots, easy bleeding, easy bruising, swollen glands, others Endocrine: denies: excessive hunger, excessive sweating, excessive thirst, excessive urination, flushing, intolerance to cold, intolerance to heat, unexplained weight gain, unexplained weight loss, others Psychiatric: denies: anxiety, bipolar disorder, depression, hopeless, panic disorder, schizophrenia, sleepless, suicidal, others All Other Systems: Reviewed and Negative Physical Exam General Appearance: Normal, Severe Distress HEENT: Normal ENT Inspection, PERRL/EOMI Neck: Full Range of Motion, Non-Tender, Normal, Normal Inspection Respiratory: Accessory Muscle Use, Chest Non-Tender, Respiratory Distress Cardiovascular: No Edema, No JVD, No Murmur, No Gallop, Normal Peripheral Pulses, Tachycardia Breast Exam: Deferred Gastrointestinal: No Organomegaly, Non Tender, No Pulsatile Mass, Normal Bowel Sounds, Soft Genitalia: Deferred Pelvic: Deferred Rectal: Deferred Extremities: No calf tenderness, Normal capillary refill, Normal inspection, Normal range of motion, Non-tender, No pedal edema Musculoskeletal : Apperance: Normal Neurologic: Alert, network design architect II-XII nml as Tested, No Motor Deficits, Normal Affect, Normal Mood, No Sensory Deficits Cerebellar Function: NOT DONE Reflexes: NOT DONE Skin: Dry, Normal Color, Warm Peripheral Pulses: 3+ Radial (R), 3+ Radial (L) Lymphatic: No Adenopathy Was a procedure done? Was a procedure done?: Yes Sedation Sedation?: Yes Informed consent obtained: Yes Sedation start time: 11:23 Sedation end time: 11:33 Sedation total time: 10 minutes Central Line Recorder of insertion practice: Agriculture Laborer Occupation of pole cutter: Attending Physician Indication: Hypotension, CVP monitoring, Suspected infection Room prepared for procedure: Yes Agriculture Laborer performed hand hygien: Yes Maximal sterile barrier precau: Mask/Eye shield, Sterile gown, Cap, Sterlie gloves, Large sterlie drape Skin Preparation: Chlorhexidine gluconate Skin preparation completely dr: Yes Insertion site: Right, Internal jugular Central line catheter type: [id number] dialysis Number of lumens: 3 Post Assessment: Chest X-Ray, Proper placement Informed consent obtained: Yes Risks/benefits/alt described: Yes Differential Dx Differential Diagnosis: Anxiety, Asthma, Bronchitis, CHF, COPD, Pneumonia, Respiratory Distress X-Ray, Labs, Meds, VS Vital Signs Date Time Temp Pulse Resp B/P (MAP) Pulse Ox O2 Delivery O2 Flow Rate FiO2 08/02/24 13:41 127 28 140/91 (107) 99 08/02/24 12:10 38 100 Non-Rebreather 15 N/A 08/02/24 12:00 114 08/02/24 11:18 98.7 136 28 138/37 (70) 100 Lab Test 08/02/24 13:30 08/02/24 12:06 Range/Units Urine Color Light-yellow Yellow Urine Clarity Clear Clear Urine pH 5.5 5.0-9.0 Urine Specific [place] 1.012 1.001-1.035 Urine Protein Negative Negative Urine Ketones 1+ H Negative Urine Blood Trace H Negative /uL Urine Nitrite Negative Negative Urine Bilirubin Negative Negative Urine Urobilinogen Normal Negative mg/dL Urine Leukocyte Esterase Negative Negative /uL Urine RBC <1 0 - 4 /hpf Urine WBC <1 0 - 5 /hpf Urine Squamous Epithelial Cells None seen <5 /hpf Urine Bacteria None seen None Seen /hpf Urine Mucus Few None Seen Urine Glucose Trace Normal mg/dL Urine Opiates Screen Neg NEGATIVE Urine Fentanyl Screen Neg NEGATIVE Urine Barbiturates Screen Neg NEGATIVE Urine Phencyclidine Screen Neg NEGATIVE Urine Amphetamines Screen Neg NEGATIVE Urine Benzodiazepines Screen Neg NEGATIVE Urine Cocaine Screen Neg NEGATIVE Urine Cannabinoids Screen Neg NEGATIVE White Blood Count 8.6 4.4-10.8 10^3/uL Red Blood Count 4.64 4.0-5.20 10^6/uL Hemoglobin 12.9 12.2-16.2 g/dL Hematocrit 39.4 36.0-46.0 % Mean Corpuscular Volume 84.9 80.0-100.0 fL Mean Corpuscular Hemoglobin 27.9 L 28.0-32.0 pg Mean Corpuscular Hemoglobin Concent 32.8 32.0-36.0 g/dL Red Cell Distribution Width 14.1 11.8-14.3 % Platelet Count 290 140-450 10^3/uL Mean Platelet Volume 7.3 6.9-10.8 fL Neutrophils (%) (Auto) 48.8 37.0-80.0 % Lymphocytes (%) (Auto) 44.4 10.0-50.0 % Monocytes (%) (Auto) 5.6 0.0-12.0 % Eosinophils (%) (Auto) 0.9 0.0-7.0 % Basophils (%) (Auto) 0.3 0.0-2.0 % Neutrophils # (Auto) 4.2 1.6-8.6 10 ^3/uL Lymphocytes # (Auto) 3.8 0.4-5.4 10 ^3/uL Monocytes # (Auto) 0.5 0-1.3 10 ^3/uL Eosinophils # (Auto) 0.1 0-0.8 10 ^3/uL Basophils # (Auto) 0 0-0.2 10 ^3/uL Nucleated Red Blood Cells 0.0 % Sodium Level 141 136-145 mmol/L Potassium Level 2.8 L 3.5-5.1 mmol/L Chloride Level 108 H 98-107 mmol/L Carbon Dioxide Level 21 20-31 mmol/L Anion Gap 12 5-15 Blood Urea Nitrogen 9 9-23 mg/dL Creatinine 0.67 0.550-1.02 mg/dL Glomerular Filtration Rate Calc 112 >90 mL/min BUN/Creatinine Ratio 13.4 10.0-20.0 Serum Glucose 124 H 74-106 mg/dL Calcium Level 9.5 8.7-10.4 mg/dL Current Medications Medications (Trade) Dose Ordered Sig/Jessica Route Start Time Stop Time Status Last Admin Sodium Chloride 1,000 ml @ 1,000 mls/hr Q1H ONCE IV 08/02/24 11:45 08/02/24 12:44 DC 08/02/24 11:45 Sodium Chloride 1,000 ml @ 150 mls/hr Q6H40M ONCE IV 08/02/24 11:45 08/02/24 18:24 08/02/24 15:31 Ipratropium Ramsay (Atrovent Medneb) 0.5 mg ONCE ONCE NEB 08/02/24 11:45 08/02/24 11:46 DC 08/02/24 11:56 Magnesium Sulfate/ Dextrose 100 ml @ 100 mls/hr ONCE ONCE IV 08/02/24 12:00 08/02/24 12:59 DC 08/02/24 11:58 Methylprednisolone Sodium Succinate (Solu Medrol) 125 mg ONCE ONCE IV 08/02/24 11:45 08/02/24 11:57 DC 08/02/24 11:57 Albuterol (Ventolin Medneb) 20 mg ONCE ONCE NEB 08/02/24 12:00 08/02/24 12:01 DC 08/02/24 12:09 Lorazepam (Ativan Inj) 2 mg ONCE ONCE IV 08/02/24 13:15 08/02/24 13:16 DC 08/02/24 13:14 Patient in respiratory distress. Came in on CPAP later was being bagged. Possible anxiety. Was given breathing treatment. Was given steroid. Establish intravenous access. Was given fluids. Ativan did help. Was able to control without being intubated. Reviewed her previous visit. Explained to the patient. Continue cardiac monitoring. Potassium is low. Was given potassium. Time of 1ST Reevaluation: 12:20 Reevaluation 1ST: Unchanged Patient Education/Counseling: Diagnosis, Treatment Family Education/Counseling: No Family Present Additional Information I reviewed the following notes from patient's past medical encounters: Mar 26 2024 for asthma exacerbation The following tests were ordered, and results were reviewed by me: EKG, Chest XR, Drug screen, CBC, BMP, UA, Urine culture. Additional Information was gathered from interviewing the following independent historians: EMT I reviewed and agreed with the following test results read by other providers: Chest XR I discussed treatment and results with medical personnel. Departure 1 Departure Time of Disposition: 14:24 Impression: Primary Impression: Acute hypoxic respiratory failure Additional Impressions: Acute asthma exacerbation Qualified Codes: J45.41 - Moderate persistent asthma with (acute) exacerbation Hypokalemia Disposition: ADMITTED INPATIENT Admit to: Med Surg Condition: Guarded Critical Care Note Critical Care Time?: Yes (90 min-critical care time only) Stability Stability form required: No Heart Score Heart Score: Heart Score Response (Comments) Value History N/A 0 EKG N/A 0 Age N/A 0 Risk Factors N/A 0 Troponin N/A 0 Total 0 I personally scribed for AMAN CARRINGTON MD ([email or web address]) on 08/02/24 at 11:23. Electronically submitted by Juan Carlos Funk ([email or web address]). I personally scribed for AMAN CARRINGTON MD ([email or web address]) on 08/02/24 at 11:43. Electronically submitted by Juan Carlos Funk ([email or web address]). I personally scribed for AMAN CARRINGTON MD ([email or web address]) on 08/02/24 at 15:41. Electronically submitted by Juan Carlos Funk ([email or web address]). AMAN CARRINGTON MD Aug 02, 2024 11:23
[2024-08-02] MEDS: ALBUTEROL SULF 2.5 MG/0.5ML(0.5%) NEB SOLN ONE (11:24)
[2024-08-02] MEDS: SODIUM CHLORIDE 0.9% 1,000 ML IV ONE ×2 (11:45→15:31)
[2024-08-02 11:50] VITALS: PULSE 124; RESP 28; O2SAT 92
[2024-08-02] MEDS: IPRATROPIUM BROM 0.5 MG/2.5ML INH SOL NEB ONE (11:56)
[2024-08-02] MEDS: methylPREDNISolone SOD SUCC 125 MG/2 ML VL IV ONE (11:57)
[2024-08-02] MEDS: MAGNESIUM SULFATE 1GM/100ML 100 ML IV ONE (11:58)
[2024-08-02] MEDS: ALBUTEROL SULF 2.5 MG/0.5ML(0.5%) NEB SOLN NEB ONE (12:09)
[2024-08-02 12:32] LABS: Basophils # (auto) 0 10 ^3/uL (0-0.2); Basophils % (auto) 0.3 % (0.0-2.0); Eosinophils # (auto) 0.1 10 ^3/uL (0-0.8); Eosinophils % (auto) 0.9 % (0.0-7.0); Hematocrit 39.4 % (36.0-46.0); Hemoglobin 12.9 g/dL (12.2-16.2); Lymphocytes # (auto) 3.8 10 ^3/uL (0.4-5.4); Lymphocytes % (auto) 44.4 % (10.0-50.0); Mean Corpuscular Hemoglobin 27.9 pg (28.0-32.0); Mean Corpuscular Hgb Conc. 32.8 g/dL (32.0-36.0); Mean Corpuscular Volume 84.9 fL (80.0-100.0); Monocytes # (auto) 0.5 10 ^3/uL (0-1.3); Monocytes % (auto) 5.6 % (0.0-12.0); Neutrophils # (auto) 4.2 10 ^3/uL (1.6-8.6); Neutrophils % (auto) 48.8 % (37.0-80.0); Platelet Count (auto) 290 10^3/uL (140-450); Red Blood Cells 4.64 10^6/uL (4.0-5.20); Red Cell Distribution Width 14.1 % (11.8-14.3); White Blood Cell 8.6 10^3/uL (4.4-10.8)
[2024-08-02 12:39] LABS: Sodium 141 mmol/L (136-145)
[2024-08-02 12:40] LABS: Anion Gap 12 (5-15); Carbon Dioxide 21 mmol/L (20-31)
[2024-08-02 12:41] LABS: Calcium 9.5 mg/dL (8.7-10.4)
[2024-08-02 12:46] LABS: BUN/Creatinine Ratio 13.4 (10.0-20.0); Blood Urea Nitrogen 9 mg/dL (9-23)
[2024-08-02 12:49] LABS: Chloride 108 mmol/L (98-107); Glucose 124 mg/dL (74-106); Potassium 2.8 mmol/L (3.5-5.1)
--- NOTE | 2024-08-02 13:02 | DVH ---
EXAM: XY CHEST PORTABLE Indication: sob Technique: Single frontal view of the chest was obtained Comparison: XY CHEST PORTABLE on DOS: 03/26/24, XY CHEST XRAY 1 VIEW on DOS: 01/10/24, XY CHEST XRAY 1 VIEW on DOS: 01/09/24, XY CHEST PORTABLE on DOS: 01/08/24, XY CHEST PORTABLE on DOS: 01/08/24 FINDINGS: Lines and Tubes: Right internal jugular central venous catheter tip projects over the cavoatrial junc tion. Lungs: No focal consolidation. Pleura: No effusion. No pneumothorax. Cardiomediastinal contours: Unremarkable Bones: No acute osseous abnormality. IMPRESSION: No acute cardiopulmonary disease.
[2024-08-02] MEDS: LORazepam 2MG/ML-1ML VIAL IV ONE (13:14)
[2024-08-02 14:18] LABS: Urine Bacteria None Seen /hpf (None Seen)
[2024-08-02 14:29] LABS: Urine Blood TRACE /uL (Negative); Urine Clarity Clear (Clear); Urine Color Light-Yellow (Yellow); Urine Mucus FEW (None Seen); Urine Protein, UAD Negative (Negative); Urine Specific Gravity 1.012 (1.001-1.035); Urine Urobilinogen Normal (Negative); Urine WBC <1 /hpf (0 - 5); Urine pH 5.5 (5.0-9.0)
[2024-08-02 14:42] LABS: Amphetamine Screen, Urine Neg (NEGATIVE); Barbiturate Scree,Urine Neg (NEGATIVE); Benzodiazephine Screen, Urine Neg (NEGATIVE); Cannabinoid Screen, Urine Neg (NEGATIVE); Cocaine Screen, Urine Neg (NEGATIVE); Opiate Scree,Urine Neg (NEGATIVE); Phencyclidine Screen, Urine Neg (NEGATIVE)
[2024-08-02] MEDS ORDERED: NITROGLYCERIN 0.4 MG SL TAB SL PRN (15:45)
[2024-08-02] MEDS ORDERED: ONDANSETRON HCL 4 MG/2 ML VIAL IV PRN (15:45)
[2024-08-02] MEDS ORDERED: MORPHINE SULFATE INJ 2 MG/ml SYRG IV PRN (15:45)
[2024-08-02] MEDS ORDERED: OXYCODONE PO PRN (15:45)
[2024-08-02] MEDS ORDERED: DOCUSATE SOD 100 MG CAP PO PRN (15:45)
[2024-08-02] MEDS ORDERED: ACETAMINOPHEN PO PRN (15:45)
[2024-08-02] MEDS ORDERED: MONT-8 PO (15:46)
--- NOTE | 2024-08-02 15:50 | DVHHP2 ---
History of Present Illness Reason for Visit: Shortness of breath History of Present Illness Sammie Haas is a 43-year-ol female with past medical history of asthma, depression, chronic pain, and anxiety who came to the hospital for shortness of breath. Patient states he shortness of breath began about 0930 this morning, and worsened prompting her to call EMS. Patient has a significant history of asthma attacks with multiple admission and multiple intubations. Pulmonary: Asthma Psych: Anxiety, Depression Past Surgical History: Appendectomy, Cholecystectomy, (x 3), Other (right knee surgery May 2024), Tonsillectomy Family History: None Smoke: No ALCOHOL: none Drugs: None Lives: with Family Domestic Violence: Neg Review of Systems Constitutional: No: Fever, Chills, Sweats, Weakness, Malaise, Other Eyes: No: Pain, Vision change, Conjunctivae inflammation, Eyelid inflammation, Other, Redness ENT: No: Ear pain, Ear discharge, Nose pain, Nose discharge, Nose congestion, Mouth pain, Mouth swelling, Throat pain, Throat swelling, Other Respiratory: Shortness of breath, SOB with excertion, Wheezing; No: Cough, Dry, Hemoptysis, Pleuritic Pain, Sputum, Wheezing, Other Cardiovascular: No: Chest Pain, Palpitations, Orthopnea, Paroxysmal Noc. Dyspnea, Edema, Lt Headedness, Other Gastrointestinal: No: Nausea, Vomiting, Abdominal Pain, Diarrhea, Constipation, Melena, Hematochezia, Other Genitourinary: No Dysuria, No Frequency, No Incontinence, No Hematuria, No Retention, No Other Musculoskeletal: No: other, neck pain, shoulder pain, arm pain, back pain, hand pain, leg pain, foot pain Skin: No: Rash, Lesions, Jaundice, Bruising, Other Neurological: No: Weakness, Numbness, Incoordination, Change in speech, Confusion, Seizures, Other Allergies: Coded Allergies: Ibuprofen (Verified Allergy, Unknown, 04/25/23) Levothyroxine (Verified Allergy, Unknown, 04/25/23) Exam Vital Signs Vital Signs Date Time Temp Pulse Resp B/P (MAP) Pulse Ox O2 Delivery O2 Flow Rate FiO2 08/02/24 13:41 127 28 140/91 (107) 99 08/02/24 12:10 Non-Rebreather 15 N/A 08/02/24 11:18 98.7 General Appearance: Alert, Oriented X3, Cooperative, mild distress HEENT: Atraumatic, PERRLA Respiratory: Other (Diminshed breath sounds) Cardiovascular: Normal S1, Normal S2, Other (tachycardia) Abdominal: Normal bowel sounds, Soft, No tenderness Extremities: No clubbing, No cyanosis, No edema, Normal pulses Skin: No rashes, No breakdown, No significant lesion Neuro: Normal gait, Normal speech, Strength at 5/5 X4 ext Psych/Mental Status: Mental status NL, Mood NL Labs/Xrays Labs Test 08/02/24 13:30 08/02/24 12:06 Range/Units Urine Color Light-yellow Yellow Urine Clarity Clear Clear Urine pH 5.5 5.0-9.0 Urine Specific [place] 1.012 1.001-1.035 Urine Protein Negative Negative Urine Ketones 1+ H Negative Urine Blood Trace H Negative /uL Urine Nitrite Negative Negative Urine Bilirubin Negative Negative Urine Urobilinogen Normal Negative mg/dL Urine Leukocyte Esterase Negative Negative /uL Urine RBC <1 0 - 4 /hpf Urine WBC <1 0 - 5 /hpf Urine Squamous Epithelial Cells None seen <5 /hpf Urine Bacteria None seen None Seen /hpf Urine Mucus Few None Seen Urine Glucose Trace Normal mg/dL Urine Opiates Screen Neg NEGATIVE Urine Fentanyl Screen Neg NEGATIVE Urine Barbiturates Screen Neg NEGATIVE Urine Phencyclidine Screen Neg NEGATIVE Urine Amphetamines Screen Neg NEGATIVE Urine Benzodiazepines Screen Neg NEGATIVE Urine Cocaine Screen Neg NEGATIVE Urine Cannabinoids Screen Neg NEGATIVE White Blood Count 8.6 4.4-10.8 10^3/uL Red Blood Count 4.64 4.0-5.20 10^6/uL Hemoglobin 12.9 12.2-16.2 g/dL Hematocrit 39.4 36.0-46.0 % Mean Corpuscular Volume 84.9 80.0-100.0 fL Mean Corpuscular Hemoglobin 27.9 L 28.0-32.0 pg Mean Corpuscular Hemoglobin Concent 32.8 32.0-36.0 g/dL Red Cell Distribution Width 14.1 11.8-14.3 % Platelet Count 290 140-450 10^3/uL Mean Platelet Volume 7.3 6.9-10.8 fL Neutrophils (%) (Auto) 48.8 37.0-80.0 % Lymphocytes (%) (Auto) 44.4 10.0-50.0 % Monocytes (%) (Auto) 5.6 0.0-12.0 % Eosinophils (%) (Auto) 0.9 0.0-7.0 % Basophils (%) (Auto) 0.3 0.0-2.0 % Neutrophils # (Auto) 4.2 1.6-8.6 10 ^3/uL Lymphocytes # (Auto) 3.8 0.4-5.4 10 ^3/uL Monocytes # (Auto) 0.5 0-1.3 10 ^3/uL Eosinophils # (Auto) 0.1 0-0.8 10 ^3/uL Basophils # (Auto) 0 0-0.2 10 ^3/uL Nucleated Red Blood Cells 0.0 % Sodium Level 141 136-145 mmol/L Potassium Level 2.8 L 3.5-5.1 mmol/L Chloride Level 108 H 98-107 mmol/L Carbon Dioxide Level 21 20-31 mmol/L Anion Gap 12 5-15 Blood Urea Nitrogen 9 9-23 mg/dL Creatinine 0.67 0.550-1.02 mg/dL Glomerular Filtration Rate Calc 112 >90 mL/min BUN/Creatinine Ratio 13.4 10.0-20.0 Serum Glucose 124 H 74-106 mg/dL Calcium Level 9.5 8.7-10.4 mg/dL EXAM: XY CHEST PORTABLE FINDINGS: Lines and Tubes: Right internal jugular central venous catheter tip projects over the cavoatrial junction. Lungs: No focal consolidation. Pleura: No effusion. No pneumothorax. Cardiomediastinal contours: Unremarkable Bones: No acute osseous abnormality. IMPRESSION: No acute cardiopulmonary disease. Assessment/Plan Assessment/Plan Assessment: Acute hypoxic respiratory failure, Asthma exacerbation, Hypokalemia, Anxiety, Plan: Admit to Tele, Breathing treatments, IV steroids, Supplemental oxygen as needed, Home medications reconciled, TSH, Plan discussed with: Patient My Orders Orders - KANA FOY Procedure Category Date Status Time Admit ADMIT 08/02/24 Transmitted 15:35 Code Status CODE 08/02/24 Transmitted 15:35 2 Gm Sodium Diet DIET 08/02/24 Transmitted Dinner Sodium Chloride Lock PHA 08/02/24 Transmitted (Saline Lock Ns) 22:00 Ondansetron Hcl PHA 08/02/24 Transmitted (Zofran) 15:45 Docusate Sodium PHA 08/02/24 Transmitted Capsule (Colace 15:45 Complete Blood Count LAB 08/03/24 Verified 04:00 Condition: Serious TARAN 08/02/24 Transmitted 15:35 Acetaminophen Tablet [facility] 08/02/24 Transmitted (Tylenol Tablet) 15:45 Nitroglycerin [facility] 08/02/24 Transmitted Sublingual (Ntrostat 15:45 Morphine Sulfate [facility] 08/02/24 Transmitted Injection 15:45 Stat Ekg For Chest [facility] 08/02/24 Transmitted Pain 15:35 Notify Md Of Changes [facility] 08/02/24 Transmitted From Base 15:35 Hair Preparer For [facility] 08/02/24 Transmitted 24 Hours 15:35 Emergency Dysrhythmia [facility] 08/02/24 Transmitted Protocol 15:35 Rhythm Strips Once [facility] 08/02/24 Transmitted Every Shift 15:35 Oxygen By Nasal RT 08/02/24 Transmitted Cannula 15:35 Cyclobenzaprine [facility] 08/02/24 Transmitted Tablet (Flexeril 22:00 Docusate Sodium PHA 08/03/24 Transmitted Capsule (Colace 10:00 Gabapentin Capsule [facility] 08/02/24 Transmitted (Neurontin Capsule) 15:45 (Nf) Famotidine [facility] 08/03/24 Transmitted 10:00 (Nf) Oxycodone W/ PHA 08/02/24 Transmitted Acetaminophen (Apap/Ox 15:45 Date of Service: Aug 02, 2024 Billing Provider: KANA FOY Common Visit Codes: [id number] INP/OBS CARE (MOD) KANA FOY Aug 02, 2024 15:50
[2024-08-02] MEDS ORDERED: IPRATROPIUM BROM 0.5 MG/2.5ML INH SOL NEB PRN (16:00)
[2024-08-02] MEDS ORDERED: ALBUTEROL SULF 2.5 MG/0.5ML(0.5%) NEB SOLN NEB PRN (16:00)
[2024-08-02 16:44] VITALS: BP 140/91; PULSE 114; RESP 24; TEMP 98.5; O2SAT 99
[2024-08-02] MEDS: POTASSIUM EFFERVESENT TAB 25 MEQ PO ONE (16:47)
[2024-08-02] MEDS: ONDANSETRON HCL 4 MG/2 ML VIAL IV ONE (16:47)
[2024-08-02] MEDS: MORPHINE SULFATE INJ 2 MG/ml SYRG IV ONE (16:49)
[2024-08-02 18:41] VITALS: PULSE 117; RESP 20; O2SAT 99
--- NOTE | 2024-08-02 18:56 | ECG ---
[facility] Test Date: 2024-08-02 Test Time: 11:49:07 Pat Name: ALMA WAGGONER Department: ER Room: 0298T Gender: F [place] Applier: LARISA : 1980 Requested By: AMAN CARRINGTON Order Number: [id number] Reading MD: Shantanu Buitrago Measurements Intervals [place] Rate: 132 P: 14 TN: 131 QRS: -71 QRSD: 97 T: 21 QT: 316 QTc: 468 Interpretive Statements Sinus tachycardia Markedly posterior QRS axis Electronically Signed On 08-03-2024 10:30:26 PST by Shantanu Buitrago Please click the below link to view image of tracing.
[2024-08-02] MEDS: HYDROcodone-ACET 5/325MG TAB PO ONE (21:15)
[2024-08-02 22:00] VITALS: PULSE 107; RESP 16; O2SAT 98
[2024-08-02] MEDS: SODIUM CHLOR 0.9% PF (SALINE LOCK) 10ML VIAL/SYR IV SCH (22:33)
[2024-08-02] MEDS: methylPREDNISolone SOD SUCC 40 MG/ML VL IV SCH (22:34)
[2024-08-02] MEDS: MELATONIN 5 MG TAB PO ONE (22:34)
[2024-08-02] MEDS: CYCLOBENZAPRINE HCL 10 MG TAB PO SCH (22:34)
[2024-08-03] VITALS (12 sets, daily range): BP systolic 100–127; BP diastolic 52–74; PULSE 58–104; RESP 18–20; TEMP 97.6–98.7; O2SAT 95–99
[2024-08-03 07:09] LABS: Basophils # (auto) 0 10 ^3/uL (0-0.2); Basophils % (auto) 0.3 % (0.0-2.0); Eosinophils # (auto) 0 10 ^3/uL (0-0.8); Hematocrit 37.9 % (36.0-46.0); Hemoglobin 12.3 g/dL (12.2-16.2); Lymphocytes # (auto) 1.3 10 ^3/uL (0.4-5.4); Lymphocytes % (auto) 10.9 % (10.0-50.0); Mean Corpuscular Hemoglobin 27.7 pg (28.0-32.0); Mean Corpuscular Hgb Conc. 32.5 g/dL (32.0-36.0); Mean Corpuscular Volume 85.2 fL (80.0-100.0); Monocytes # (auto) 0.2 10 ^3/uL (0-1.3); Monocytes % (auto) 1.5 % (0.0-12.0); Neutrophils # (auto) 10.6 10 ^3/uL (1.6-8.6); Neutrophils % (auto) 87.3 % (37.0-80.0); Platelet Count (auto) 308 10^3/uL (140-450); Red Blood Cells 4.45 10^6/uL (4.0-5.20); Red Cell Distribution Width 14.5 % (11.8-14.3); White Blood Cell 12.2 10^3/uL (4.4-10.8)
[2024-08-03] MEDS: GABAPENTIN 300 MG CAP PO PRN (08:01)
[2024-08-03] MEDS ORDERED: POTASSIUM EFFERVESENT TAB 25 MEQ PO ONE (08:15)
[2024-08-03 08:18] LABS: Potassium 4.4 mmol/L (3.5-5.1); Sodium 139 mmol/L (136-145)
[2024-08-03 08:19] LABS: Anion Gap 8 (5-15); Carbon Dioxide 22 mmol/L (20-31)
[2024-08-03 08:20] LABS: Calcium 9.9 mg/dL (8.7-10.4)
[2024-08-03 08:24] LABS: BUN/Creatinine Ratio 11.3 (10.0-20.0)
[2024-08-03 08:25] LABS: Blood Urea Nitrogen 7 mg/dL (9-23); Chloride 109 mmol/L (98-107); Glucose 154 mg/dL (74-106)
[2024-08-03] MEDS ORDERED: DOCUSATE SOD 100 MG CAP PO SCH (10:00)
[2024-08-03] MEDS: FAMOTIDINE 20 MG TAB PO SCH (10:35)
--- NOTE | 2024-08-03 12:36 | DVHPNRES ---
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 According to the patient, she was getting her car oil change when on her way back she noticed her car was smoking. She put on her mask and used her inhaler 3 times but it did not help, eventually she called 911 as she was sweating, felt heaviness in her chest like something heavy was sitting on her chest. In the ambulance patient continued feeling like she could not breathe and was noted to have SpO2 in the 60s and was subsequently bagged. Patient also had right knee surgery in May 2024 and currently is using a leg brace. PCP is Dr. Tran Past surgical history: Right leg surgery in May, section x3 Home medications: Albuterol, Singulair, buprenorphine patch, gabapentin, Flexeril, Percocet 10 Past Hospitalization: In February 2024 for asthma exacerbation Social & Personal history: Patient lives with her mom and sons. Denies ever using tobacco, alcohol or drugs. Allergies: Ibuprofen and levothyroxine Patient seen and examined at bedside. Patient is alert and oriented to time, place person and responding to all questions. General: Fatigue Eyes: No Pain, No Vision change, No Conjunctivae inflammation, No Eyelid inflammation, No Other, No Redness ENT: No Ear pain, No Ear discharge, No Nose pain, No Nose discharge, No Nose congestion, No Mouth pain, No Mouth swelling, No Throat pain, No Throat swelling, No Other Cardiovascular: No Chest Pain, No Palpitations, Dyspnea, No Edema, No Lt Headedness, No Other Respiratory: Dry cough, Shortness of breath, Wheezing, No Hemoptysis, No Pleuritic Pain, No Sputum, No Other Gastrointestinal: No Nausea, No Vomiting, No Abdominal Pain, No Diarrhea, No Constipation, No Melena, No Hematochezia, No Other Genitourinary: No Dysuria, No Frequency, No Incontinence, No Hematuria, No Retention, No Other Musculoskeletal: No other, No neck pain, No shoulder pain, No arm pain, No back pain, No hand pain, No leg pain, No foot pain Skin: No Rash, No Lesions, No Jaundice, No Bruising, No Other Objective vital signs Vital Sign Date Time Temp Pulse Resp B/P (MAP) Pulse Ox O2 Delivery O2 Flow Rate FiO2 08/03/24 09:32 98 Nasal Cannula 2.0 08/03/24 09:32 28 08/03/24 09:26 98.1 73 19 115/74 (88) 98.1 Total Intake and Output 08/02/24 08/02/24 08/03/24 15:00 23:00 07:00 Intake Total 800 ml Output Total 1700 ml Balance -900 ml medications Current Medications Medications Dose Ordered Sig/Jessica Route Start Time Stop Time Status Last Admin Dose Admin Sodium Chloride 10 ml Q8HR IV 08/02/24 22:00 08/03/24 05:49 10 ML Acetaminophen 650 mg Q6HP PRN PO 08/02/24 15:45 Cyclobenzaprine HCl 5 mg BID PO 08/02/24 22:00 08/03/24 10:35 5 MG Gabapentin 300 mg BID PRN PO 08/02/24 15:45 08/03/24 08:01 300 MG Famotidine 40 mg DAILY PO 08/03/24 10:00 08/03/24 10:35 40 MG Patient Own Medication 1 tab Q6HP PRN PO 08/02/24 15:45 Albuterol 2.5 mg Q4HPRN PRN NEB 08/02/24 16:00 Ipratropium [place] 0.5 mg Q4HPRN PRN NEB 08/02/24 16:00 Methylprednisolone Sodium Succinate 40 mg BID IV 08/02/24 22:00 08/03/24 10:35 40 MG Polyethylene Glycol 17 gm DAILYPRN PRN PO 08/04/24 10:00 Examination General Appearance: Cooperative. Well developed. Well nourished. NAD Head Exam: Normal inspection Neck Exam: Normal inspection. Non-tender. Normal alignment Pulmonary/Respiratory: Chest non-tender. Clear bilateral breath sounds, mild c rackles, trace wheezing. Cardiovascular/Chest: Regular rate and rhythm. No murmurs. No JVD. Peripheral Pulses: 2+ Radial (R). 2+ Radial (L). 2+ Pedal (R). 2+ Pedal (L) Abdominal Exam: Normal bowel sounds. Soft. normal abdomen, no visible veins, Nontender. No hepatospenomegaly. No masses Ankle Exam: Negative ankle edema Lower extremities: Negative lower extremity edema Neuro/Mental Status: A&O x4. Coherent. Thoughts/Psych: Normal thought pattern. Appropriate mood and affect. Good judgement and insight Skin Exam: Normal inspection. Normal color. Warm. Dry laboratory and microbiology Laboratory Tests 08/03/24 06:53 Test 08/03/24 06:53 Range/Units Serum Glucose 154 H 74-106 mg/dL Labs and/or images reviewed: Labs reviewed by me, Image(s) reviewed by me Problem List/Assessment/Plan Problem List/Assessment/Plan Acute asthma exacerbation Acute hypoxic respiratory failure due to above Ruled out pulmonary embolism - CXR no acute cardiopulmonary disease - Lower extremity venous Doppler: No sonographic evidence for DVT in the lower extremities - albuterol and ipratropium med nebs - IV methylprednisolone 40 b.i.d. Chronic back pain likely due to herniated discs Constipation - cyclobenzaprine 5 mg p.o. b.i.d. - Gabapentin 300 mg p.o. b.i.d. 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 Muniz Plan discussed with: Patient, Other (RN) My Orders My Orders Orders - SIRENA MCCAIN RESIDENT Procedure Category Date Status Time Hiv 1&2 Antibody LAB 08/03/24 Logged 12:30 Bilat Lower Dvt US 08/03/24 Logged 12:30 Polyethylene Glycol PHA 08/04/24 In Process 17g Powder (Miralax 10:00 Date of Service: Aug 03, 2024 Billing Provider: BORIS MUNIZ MD Common Visit Codes: [id number] INP/OBS CARE(LOW) SIRENA MCCAIN Aug 03, 2024 12:36 BORIS MUNIZ MD Aug 04, 2024 17:25
[2024-08-03] MEDS: POLYETHYLENE GLYCOL 17 GM PWDR PO ONE (12:44)
--- NOTE | 2024-08-03 13:19 | DVH ---
BILATERAL LOWER EXTREMITY VENOUS DOPPLER CLINICAL HISTORY: immobility hx with resp symptoms Technique: Duplex Doppler evaluation of the deep venous systems of both lower extremities from the co mmon femoral veins to the popliteal veins including color Doppler and spectral/pulsed waveform analys is was performed. COMPARISON: US BILAT LOWER DVT on DOS: 08/27/23, US LT LOWER DVT on DOS: 06/09/23 FINDINGS: The right and left common femoral, superficial femoral, popliteal, and posterior tibial veins appear patent with normal augmentation, phasicity, compressibility and color-flow. IMPRESSION: 1. There is no sonographic evidence for DVT in the lower extremities. HS:Y
[2024-08-03] MEDS: OXYCODONE W/ ACETAMINOPHEN 5/325MG TABLET PO SCH (17:41)
[2024-08-03] MEDS ORDERED: FLUTICASONE PROP NASAL SPR 0.05 % (50MCG) 16GM EACHNOSTRI ONE (18:15)
[2024-08-03] MEDS: LORATADINE 10 MG TAB PO ONE (18:57)
[2024-08-03 22:22] LABS: COVID19 ANTIGEN SOFIA FIA NEGATIVE (NEGATIVE); Rapid Influenza A Negative (Negative); Rapid Influenza B Negative (Negative)
[2024-08-04] VITALS (10 sets, daily range): BP systolic 91–123; BP diastolic 51–81; PULSE 56–94; RESP 17–20; TEMP 36.6; O2SAT 95–98
[2024-08-04] MEDS: ACETAMINOPHEN 325 MG TAB PO PRN (03:38)
[2024-08-04] MEDS: POLYETHYLENE GLYCOL 17 GM PWDR PO PRN (08:34)
[2024-08-04] MEDS: LORATADINE 10 MG TAB PO SCH (09:24)
[2024-08-04 10:42] LABS: Basophils # (auto) 0 10 ^3/uL (0-0.2); Basophils % (auto) 0.1 % (0.0-2.0); Eosinophils # (auto) 0 10 ^3/uL (0-0.8); Hematocrit 37.4 % (36.0-46.0); Lymphocytes # (auto) 2.3 10 ^3/uL (0.4-5.4); Lymphocytes % (auto) 15.3 % (10.0-50.0); Mean Corpuscular Hemoglobin 27.8 pg (28.0-32.0); Mean Corpuscular Hgb Conc. 32.2 g/dL (32.0-36.0); Mean Corpuscular Volume 86.6 fL (80.0-100.0); Monocytes # (auto) 0.6 10 ^3/uL (0-1.3); Neutrophils % (auto) 80.6 % (37.0-80.0); Platelet Count (auto) 307 10^3/uL (140-450); Red Blood Cells 4.32 10^6/uL (4.0-5.20); Red Cell Distribution Width 14.8 % (11.8-14.3); White Blood Cell 14.9 10^3/uL (4.4-10.8)
[2024-08-04 10:43] LABS: Sodium 141 mmol/L (136-145)
[2024-08-04 10:44] LABS: Anion Gap 8 (5-15); Calcium 9.5 mg/dL (8.7-10.4); Carbon Dioxide 26 mmol/L (20-31)
[2024-08-04 10:49] LABS: BUN/Creatinine Ratio 19.2 (10.0-20.0); Blood Urea Nitrogen 14 mg/dL (9-23)
[2024-08-04 10:50] LABS: Magnesium 2.3 mg/dL (1.6-2.6)
[2024-08-04 10:52] LABS: Chloride 107 mmol/L (98-107); Glucose 128 mg/dL (74-106)
[2024-08-04] MEDS ORDERED: PRED20TA2 PO (14:03)
[2024-08-04] MEDS ORDERED: LORA-483 PO (14:03)
[2024-08-04] MEDS ORDERED: DOXY-346 PO (14:03)
[2024-08-04] MEDS ORDERED: AUG875T PO (14:03)
--- NOTE | 2024-08-04 15:05 | DVHDSRES ---
Discharge Summary Date of Admission Resident Creating Document: JOHN GAMBLE Aug 02, 2024 at 15:35 Date of Discharge: Aug 04, 2024 Labs/Diagnostic Data: Laboratory Results Test 08/04/24 09:58 08/03/24 21:20 08/03/24 06:53 08/02/24 13:30 White Blood Count 14.9 10^3/uL (4.4-10.8) Red Blood Count 4.32 10^6/uL (4.0-5.20) Hemoglobin 12.0 g/dL (12.2-16.2) Hematocrit 37.4 % (36.0-46.0) Mean Corpuscular Volume 86.6 fL (80.0-100.0) Mean Corpuscular Hemoglobin 27.8 pg (28.0-32.0) Mean Corpuscular Hemoglobin Concent 32.2 g/dL (32.0-36.0) Red Cell Distribution Width 14.8 % (11.8-14.3) Platelet Count 307 10^3/uL (140-450) Mean Platelet Volume 7.7 fL (6.9-10.8) Neutrophils (%) (Auto) 80.6 % (37.0-80.0) Lymphocytes (%) (Auto) 15.3 % (10.0-50.0) Monocytes (%) (Auto) 4.0 % (0.0-12.0) Eosinophils (%) (Auto) 0.0 % (0.0-7.0) Basophils (%) (Auto) 0.1 % (0.0-2.0) Neutrophils # (Auto) 12.0 10 ^3/uL (1.6-8.6) Lymphocytes # (Auto) 2.3 10 ^3/uL (0.4-5.4) Monocytes # (Auto) 0.6 10 ^3/uL (0-1.3) Eosinophils # (Auto) 0 10 ^3/uL (0-0.8) Basophils # (Auto) 0 10 ^3/uL (0-0.2) Nucleated Red Blood Cells 0.0 % Sodium Level 141 mmol/L (136-145) Potassium Level 4.0 mmol/L (3.5-5.1) Chloride Level 107 mmol/L (98-107) Carbon Dioxide Level 26 mmol/L (20-31) Anion Gap 8 (5-15) Blood Urea Nitrogen 14 mg/dL (9-23) Creatinine 0.73 mg/dL (0.550-1.02) Glomerular Filtration Rate Calc 105 mL/min (>90) BUN/Creatinine Ratio 19.2 (10.0-20.0) Serum Glucose 128 mg/dL (74-106) Calcium Level 9.5 mg/dL (8.7-10.4) Magnesium Level 2.3 mg/dL (1.6-2.6) Influenza Type A Antigen Negative (Negative) Influenza Type B Antigen Negative (Negative) SARS-CoV-2 Antigen (Rapid) Negative (NEGATIVE) Hemoglobin A1c 5.6 % A1C (<5.7) Thyroid Stimulating Hormone (TSH) 0.31 uIU/mL (0.55-4.78) Beta HCG, Quantitative 1.7 mIU/mL (1.5-4.2) HIV (1&2) Antibody Negative (Negative) Urine Color Light-yellow (Yellow) Urine Clarity Clear (Clear) Urine pH 5.5 (5.0-9.0) Urine Specific [place] 1.012 (1.001-1.035) Urine Protein Negative (Negative) Urine Ketones 1+ (Negative) Urine Blood Trace /uL (Negative) Urine Nitrite Negative (Negative) Urine Bilirubin Negative (Negative) Urine Urobilinogen Normal mg/dL (Negative) Urine Leukocyte Esterase Negative /uL (Negative) Urine RBC <1 /hpf (0 - 4) Urine WBC <1 /hpf (0 - 5) Urine Squamous Epithelial Cells None seen /hpf (<5) Urine Bacteria None seen /hpf (None Seen) Urine Mucus Few (None Seen) Urine Glucose Trace mg/dL (Normal) Urine Test Negative (Negative) Urine Opiates Screen Neg (NEGATIVE) Urine Fentanyl Screen Neg (NEGATIVE) Urine Barbiturates Screen Neg (NEGATIVE) Urine Phencyclidine Screen Neg (NEGATIVE) Urine Amphetamines Screen Neg (NEGATIVE) Urine Benzodiazepines Screen Neg (NEGATIVE) Urine Cocaine Screen Neg (NEGATIVE) Urine Cannabinoids Screen Neg (NEGATIVE) Other Laboratory Tests 08/04/24 09:58 Brief Hx & Hospital Course: 43-year-old female with past medical history asthma, vocal cord dysfunction, Koki's disease, herniated disc, 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 According to the patient, she was getting her car oil change when on her way back she noticed her car was smoking. She put on her mask and used her inhaler 3 times but it did not help, eventually she called 911 as she was sweating, felt heaviness in her chest like something heavy was sitting on her chest. In the ambulance patient continued feeling like she could not breathe and was noted to have SpO2 in the 60s and was subsequently bagged. She was Started on IV magnesium and nebulized ipratropium and albuterol, was started on methylprednisolone IV. Patient was initially on 15 L through [facility], but later improved to room air during the hospital course. Patient was started on home medication. During the hospital course, patient improved in her symptoms. At The time of discharge, patient had stable vitals, no new complaints. Discharge neural this with the patient and patient advised to follow up with PCP/cash manager within 1 week. Patient was continued on home medication and was started on Augmentin and doxycycline, prednisone and loratadine p.r.n. 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 Patient was counseled about treatment plan, medications, possible side effects, patientverbalized understanding. All questions were answered to the best of my ability. This discharge took greater then 30 minutes in planning, reviewing documentation, counseling the patient, and discussing with other team members." ASSESSMENT ASSESSMENT Assessment Date of Service: Aug 04, 2024 Billing Provider: HEATHER CLARK MD Common Visit Codes: [id number] DISCH DAY >30min JOHN GAMBLE Aug 04, 2024 15:05 HAETHER CLARK MD Aug 04, 2024 22:03
== END 2024-08-04 18:55 | disposition home or self-care (01) | DRG 141 ==
LOC: ER 11:17 → EDBD 11:17 → TELE 15:35 → TELE-WESTW 23:43
PROVIDERS: ADMIT Student in an Organized Health Care Education/Training Program; ATTEND Student in an Organized Health Care Education/Training Program
PROC: 02HV33Z Insertion of Infusion Device into Superior Vena Cava, Percutaneous Approach (ICD-10-PCS; principal; 2024-08-02)
DX: J45.901 Unspecified asthma with (acute) exacerbation (principal); J96.01 Acute respiratory failure with hypoxia; R65.11 Systemic inflammatory response syndrome (SIRS) of non-infectious origin with acute organ dysfunction; F41.9 Anxiety disorder, unspecified; E87.6 Hypokalemia; Z20.822 Contact with and (suspected) exposure to COVID-19; F32.A Depression, unspecified; G89.29 Other chronic pain; K59.00 Constipation, unspecified; E06.3 Autoimmune thyroiditis; M81.0 Age-related osteoporosis without current pathological fracture; T38.0X5A Adverse effect of glucocorticoids and synthetic analogues, initial encounter; Z90.49 Acquired absence of other specified parts of digestive tract; Z88.6 Allergy status to analgesic agent; Y92.89 Other specified places as the place of occurrence of the external cause
CPT/HCPCS: 36415; 71045; 80048; 80307; 81001; 81025; 83036; 83735; 84443; 84702; 85025; 86703; 87081; 87086; 87426; 87804; 93005; 93970; 94640; 96365; 96375; 99291; G0378; J2405

== ENCOUNTER 2024-08-18 11:25 | Emergency (ER) | payer MEDICAID ==
[~2024-08-18] VITALS: Ht 170.2 cm; Wt 93.2 kg
[~2024-08-18 11:25] MED LIST changes: +AUG875T PO; -AZIT-185 PO; +DOXY-346 PO; +LORA-483 PO; +MONT-8 PO
--- NOTE | 2024-08-18 12:14 | DVH ---
XY L HIP COMPLETE XRAY, INDICATION: PAIN, NO INJURY TECHNICAL DATA: Frontal and frog lateral views were obtained of the left hip. COMPARISON: None FINDINGS: The left hip is normally located. The left hip joint is normally maintained with no marginal osteophy jennifer. No left hip fracture is identified. The left sacroiliac joint appears normal. IMPRESSION: No acute fracture of the left hip.
--- NOTE | 2024-08-18 12:50 | ED.PDOC ---
Musculoskeletal HPI Comments A 43 YEAR OLD FEMALE PRESENTS TO THE ED WITH CHIEF COMPLAINT OF HIP PAIN. PATIENT REPORTS THAT SHE HAS BEEN EXPERIENCING BILATERAL HIP PAIN FOR THE PAST FEW DAYS. PATIENT RELAYS THAT SHE HAS HISTORY OF HERNIATED DISCS AND CHRONIC LOWER BACK PAIN. PATIENT STATES SHE IS UNDER PAIN MANAGEMENT AND TOOK PERCOCET AT HOME WITH NO RELIEF IN HER PAIN NOTED. PATIENT DENIES ANY NUMBNESS, WEAKNESS, CHEST PAIN, FALL, HEADACHE, DIZZINESS, OR BACK INJURY. PT REQUESTS PAIN INJECTION. NO OTHER SYMPTOMS REPORTED AT THIS TIME OF CARE. Chief Complaint: Lower Extremity Time Seen by MD: 12:46 Primary Care Provider: NII Reviewed Notes: Nurses Notes, Medications, Allergies Allergies: Coded Allergies: Ibuprofen (Verified Allergy, Unknown, 04/25/23) Levothyroxine (Verified Allergy, Unknown, 04/25/23) Home Meds Active Scripts Doxycycline (Monohydrate) (Doxycycline) 100 Mg Tab, 100 MG PO BID for 5 Days, #10 TAB Prov:JOHN GAMBLE [facility] 08/04/24 Amoxicillin & Pot Clavulanate (AUGMENTIN TABLET) 875 Mg Tb, 875 MG PO BID for 5 Days, #10 TAB [facility] 08/04/24 Prednisone (Prednisone) 20 Mg Tab, 40 MG PO DAILY for 4 Days, #8 MG [facility] 08/04/24 Loratadine (CLARITIN TABLET) 10 Mg Tb, 10 MG PO DAILYPRN PRN for 7 Days, #7 TAB Prov:JOHN GAMBLE [facility] 08/04/24 Albuterol Sulfate (Ventolin) 2.5 Mg/0.5 Ml Nb, 2.5 MG NEB Q4HPRN PRN for 30 Days, #30 INH Prov:MAXIME GRIDER RESIDENT 01/11/24 Reported Medications Montelukast Sodium (MONTELUKAST SODIUM) 10 Mg Tab, 1 TAB PO DAILY 08/02/24 Docusate Sodium (Colace) 100 Mg Cap, 100 MG PO DAILY for CONSTIPATION, CAP 01/08/24 Cholecalciferol (VITAMIN D3) 2,000 Unit Tab, 5000 UNIT OR QWEEKLY for LOW VIT OLIVIER D, TAB 01/08/24 Cyclobenzaprine Hcl (Cyclobenzaprine Hcl) 10 Mg Tab, 5 MG PO BID for MUSCLE RELAXANT for 30 Days, MG 11/30/23 Oxycodone W/ Acetaminophen (Apap/Oxycodone) 1 Tab Tab, 1 TAB PO QID PRN for BACK PAIN,, #90 TAB 10/325 08/27/23 Buprenorphine (BUTRANS) 5 Mcg/Hr Dis, 1 PATCH TOP QWEEKLY 05/07/23 Famotidine (Famotidine) 40 Mg Tab, 1 TAB PO DAILY for GI PREVENTION 03/03/23 Ferrous Sulfate (Ferosul) 325 Mg Tab, 325 PO DAILY for ANEMIA 03/03/23 Gabapentin (Gabapentin) 300 Mg Cap, 300 MG PO BID PRN for NEUROPATHRY LEG PAIN 03/02/23 Information Source: Patient Mode of Arrival: Ambulatory Location: Bilateral Extremity Location: Back, Hip Timing: Days Prehospital treatment: None Severity: Moderate Able to Move Extremity: No Bear Weight: No Pain: Moderate Mechanism: Spontaneous Circumstances: Spontaneous Onset of Symptoms: Spontaneous Symptoms: Pain DVT Risk Factors: NONE Last Tetanus: Unknown Associated signs and symptoms: Back pain, Hip pain Past Medical History PAST MEDICAL HISTORY: Anemia, Anxiety, Asthma, COPD, Thyroid Past Medical History (Other): CHRONIC LOW BACK PAIN, DDD OF LOW BACK Surgical History: Appendectomy, Cholecystectomy, , Tonsillectomy 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 History: No Pertinent HE[employer]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 History Family History Family History: Reviewed,noncontributory to illness Social History Smoker: Non-Smoker Alcohol: Denies ETOH Use Drugs: Denies Drug Use Lives In: Home Constitutional: denies: chills, diaphoresis, fatigue, fever, malaise, sweats, weakness, others EENTM: denies: blurred vision, double vision, ear bleeding, ear discharge, ear drainage, ear pain, ear ringing, eye pain, eye redness, hearing loss, mouth pain, mouth swelling, nasal discharge, nose bleeding, nose congestion, nose pain, photophobia, tearing, throat pain, throat swelling, voice changes, others Respiratory: denies: cough, hemoptysis, orthopnea, SOB at rest, shortness of breath, SOB with excertion, stridor, wheezing, others Cardiovascular: denies: chest pain, dizzy spells, diaphoresis, Dyspnea on exertion, edema, irregular heart beat, left arm pain, lightheadedness, palpitations, PND, syncope, others Gastrointestinal: denies: abdomen distended, abdominal pain, blood streaked bowels, constipated, diarrhea, dysphagia, difficulty swallowing, hematemesis, melena, nausea, poor appetite, poor fluid intake, rectal bleeding, rectal pain, vomiting, others Genitourinary: denies: abnormal vagina bleeding, burning, dyspareunia, dysuria, flank pain, frequency, hematuria, incontinence, pain, , vagina discharge, urgency, others Neurological: denies: dizziness, fainting, headache, left sided numbness, left sided weakness, numbness, paresthesia, pre-existing deficit, right sided numbne ss, right sided weakness, seizure, speech problems, tingling, tremors, weakness, others Musculoskeletal: reports: back pain, muscle pain, others (BILATERAL HIP PAIN); denies: gout, joint pain, joint swelling, muscle stiffness, neck pain Integumetry: denies: bruises, change in color, change in hair/nails, dryness, laceration, lesions, lumps, rash, wounds, others Allergic/Immunocompromised: denies: Difficulty Healing, Frequent Infections, Hives, Itching, others Hematologic/Lymphatic: denies: anemia, blood clots, easy bleeding, easy bruising, swollen glands, others Endocrine: denies: excessive hunger, excessive sweating, excessive thirst, excessive urination, flushing, intolerance to cold, intolerance to heat, unexpl ained weight gain, unexplained weight loss, others Psychiatric: denies: anxiety, bipolar disorder, depression, hopeless, panic disorder, schizophrenia, sleepless, suicidal, others All Other Systems: Reviewed and Negative Physical Exam General Appearance: Mild Distress, Obese, Other (ANXIETY ) HEENT: Normal ENT Inspection, PERRL/EOMI, Pharynx Normal Neck: Full Range of Motion, Non-Tender, Normal, Normal Inspection Respiratory: Chest Non-Tender, Lungs Clear, No Accessory Muscle Use, No Respira tory Distress, Normal Breath Sounds Cardiovascular: No Edema, No JVD, No Murmur, No Gallop, Normal Peripheral Pulses, Regular Rate/Rhythm Breast Exam: Deferred Gastrointestinal: No Organomegaly, Non Tender, No Pulsatile Mass, Normal Bowel Sounds, Soft Genitalia: Deferred Pelvic: Deferred Rectal: Deferred Extremities: No calf tenderness, Normal capillary refill, Normal inspection, Normal range of motion, Non-tender, No pedal edema Musculoskeletal : Location: Bilateral Extremity Location: Back, Hip Apperance: Tenderness: Moderate (LOWER BACK TO BUTTOCKS, NO BONY TENDERNESS, SWELLING AND DEFORMITY. NO DVT SIGNS. ) Neurologic: Alert, blue leather setter II-XII nml as Tested, No Motor Deficits, Normal Affect, Normal Mood, No Sensory Deficits Cerebellar Function: Normal Reflexes: Normal Skin: Dry, Normal Color, Warm Peripheral Pulses: 2+ carotid (R), 2+ carotid (L), 2+ dorsalis pedis (R), 2+ dorsalis pedis (L) Lymphatic: No Adenopathy Was a procedure done? Was a procedure done?: No Differential Diagnosis EXT Differential Diagnosis: Fracture, Sprain, Contusion, Strain, Bursitis, Other (CHRONIC LOW BACK PAIN EXACERBATION, PAIN MANAGEMENT ) X-Ray, Labs, Meds, VS Vital Signs Date Time Temp Pulse Resp B/P (MAP) Pulse Ox O2 Delivery O2 Flow Rate FiO2 08/18/24 12:57 110 16 138/90 08/18/24 11:36 97.0 117 16 137/96 (110) 97 Current Medications Medications (Trade) Dose Ordered Sig/Jessica Route Start Time Stop Time Status Last Admin Meperidine HCl (Demerol Injection) 50 mg ONCE ONCE IM 08/18/24 12:45 08/18/24 12:46 DC 08/18/24 12:57 Ondansetron HCl (Zofran Po) 4 mg ONCE ONCE PO 08/18/24 12:45 08/18/24 12:46 DC 08/18/24 12:57 PATIENT: INGRID WAGGONERT: [id number]: [id number] : 1980 LOC: ER ROOM / BED: / AGE / SEX: 43 / F ADM STATUS: REG ER SERVICE 1146 ORDERING PHYSICIAN: CLARIBEL SHAIKH PROCEDURE(s): LHIP - L HIP COMPLETE XRAY REASON: PAIN, NO INJURY ORDER NUMBER(s): [id number], ACCESSION NUMBER(s): [id number] XY L HIP COMPLETE XRAY, INDICATION: PAIN, NO INJURY TECHNICAL DATA: Frontal and frog lateral views were obtained of the left hip. COMPARISON: None FINDINGS: The left hip is normally located. The left hip joint is normally maintained with no marginal osteophytes. No left hip fracture is identified. The left sacroiliac joint appears normal. IMPRESSION: No acute fracture of the left hip. ATED BY: TREY LOCKE MD DICTATED DATE/TIME: 08/18/241211 SIGNED BY: TREY LOCKE MD SIGNED DATE/TIME: 08/18/241211 CC: X-Ray, Labs, Meds, VS Comment EXTERNAL MEDICAL RECORDS REVIEWED: 08/02/24 FOR ACUTE HYPOXIC RESPIRATORY FAILURE INDEPENDENT HISTORIANS: [NONE] SOCIAL DETERMINANTS OF HEALTH: [NONE] LABS ORDERED: NONE REVIEWED AND INTERPRETED RESULTS: NONE IMAGING ORDERED: NONE TREATMENTS ORDERED: DEMEROL 50MG IM, ZOFRAN 4MG PO PROCEDURES PERFORMED: NONE CRITICAL CARE TIME: NONE I HAVE DISCUSSED THE PATIENT WITH THE ATTENDING PHYSICIAN [PHYSICIAN'S NAME] AND HE AGREES WITH THE PATIENT'S PLAN OF CARE AND DISPOSITION. GIVEN THE HISTORY AND PRESENT ILLNESS OF THE PATIENT, AFTER REVIEWING LABS, IMAGING, AND COURSE OF TREATMENT ADMINISTERED DURING THEIR ED VISIT, THERE IS LOW SUSPICION FOR RED FLAG FINDINGS. BASED ON HISTORY OF PRESENT ILLNESS, AND PHYSICAL EXAM, PATIENT WILL BE DISCHARGED HOME. DISCUSSED PLAN FOR DISCHARGE HOME WITH RX []. MEDICATION WARNINGS GIVEN. SHARED DECISION MAKING: DISCUSSED WITH PATIENT THAT THEIR WORKUP WAS NORMAL. PATIENT INSTRUCTED TO FOLLOW UP WITH PRIMARY CARE PROVIDER IN 1-2 DAYS FOR RE- EVALUATION OF SYMPTOMS. PATIENT VERBALIZES UNDERSTANDING TO RETURN TO ED FOR NEW OR WORSENING SYMPTOMS OR IF FOLLOW UP WITH PCP CANNOT BE OBTAINED. PATIENT FEELS COMFORTABLE GOING HOME AT THIS TIME. ALL QUESTIONS ADDRESSED AT TIME OF DISCHARGE. Time of 1ST Reevaluation: 13:30 Reevaluation 1ST: Improved Patient Education/Counseling: Diagnosis, Treatment, Need For Follow Up Family Education/Counseling: Diagnosis, Treatment, Need For Follow Up Medical Screening: No EMC Exist At This Time Departure 1 Departure Time of Disposition: 13:30 Impression: Primary Impression: Acute exacerbation of chronic low back pain Additional Impression: Pain management Disposition: HOME / SELF CARE / HOMELESS Condition: Stable Additional Instructions: FOLLOW-UP WITH PCP IN 1 TO 2 DAYS. TAKE MEDICATIONS PRESCRIBED. RETURN TO ED FOR ANY NEW OR WORSENING SYMPTOMS. Discharged With: Self Critical Care Note Critical Care Time?: No Stability Stability form required: No Heart Score Heart Score: Heart Score Response (Comments) Value History N/A 0 EKG N/A 0 Age N/A 0 Risk Factors N/A 0 Troponin N/A 0 Total 0 I personally scribed for CLARIBEL SHAIKH ([email or web address]) on 08/18/24 at 12:50. Electronically submitted by Juan Carlos Funk ([email or web address]). CLARIBEL SHAIKH Aug 18, 2024 12:50
[2024-08-18] MEDS: MEPERIDINE HCL (50 MG/ML) 1 ML VIAL IM ONE (12:57)
[2024-08-18] MEDS: ONDANSETRON ODT 4 MG TAB PO ONE (12:57)
[2024-08-18 13:26] VITALS: BP 138/90; PULSE 110; RESP 16; TEMP 97.8; O2SAT 98
== END 2024-08-18 13:29 | disposition home or self-care (01) ==
LOC: ER 11:32
DX: G89.29 Other chronic pain (principal); M54.50 Low back pain, unspecified; F41.9 Anxiety disorder, unspecified; E31.0 Autoimmune polyglandular failure; J44.9 Chronic obstructive pulmonary disease, unspecified; M25.551 Pain in right hip; M25.552 Pain in left hip; Z90.49 Acquired absence of other specified parts of digestive tract; Z90.89 Acquired absence of other organs; Z88.6 Allergy status to analgesic agent
CPT/HCPCS: 73502; 96372; 99283; J2175; Q0162

== ENCOUNTER 2024-10-07 11:19 | Emergency (ER) | payer MEDICAID ==
[~2024-10-07] VITALS: Ht 170.2 cm; Wt 94.1 kg
[2024-10-07 14:31] VITALS: BP 140/98; PULSE 100; RESP 18; TEMP 98; O2SAT 96
--- NOTE | 2024-10-07 15:37 | DVH ---
US OF THE RIGHT BREAST INDICATION: R breast pain. abscess formation TECHNIQUE: All 4 quadrants, subareolar region and axillary region of the RIGHT breast were evaluated with ultrasound COMPARISON: None FINDINGS: Heterogeneous wider than tall circumscribed structure with through transmission in the superficial singh bcutaneous Soft-tissue in the right lower chest measures 1.6 x 1.2 x 2.8 cm possibly representing an infectious sebaceous cyst. IMPRESSION: Probably benign infected sebaceous cyst or small abscess in the superficial subcutaneous soft-tissue in the lower right chest, 6 o'clock position. Recommend repeat imaging after treatment to ensure com plete resolution and exclude underlying neoplastic etiology. Recommend bilateral diagnostic mammogr aphy. ACR Bi Rads Category:Category 3
[2024-10-07 15:48] LABS: Anion Gap 10 (5-15); Carbon Dioxide 22 mmol/L (20-31); Chloride 107 mmol/L (98-107); Potassium 3.6 mmol/L (3.5-5.1); Sodium 139 mmol/L (136-145)
[2024-10-07 15:49] LABS: Calcium 9.8 mg/dL (8.7-10.4)
[2024-10-07] MEDS ORDERED: CEPH500T PO (15:50)
[2024-10-07] MEDS ORDERED: ACET500T58 PO (15:50)
[2024-10-07] MEDS ORDERED: BACDST PO (15:50)
--- NOTE | 2024-10-07 15:50 | ED.PDOC ---
History of Present Illness(SKN HPI Comments 44 year old female with no MHx presents for a possible abscess to the right breast. Onto started one week ago in his located to the lower aspect of the right breast approximately at six o'clock Pain has been gradually been worsening unable to get adequate relief with [id number] medications. Denies drainage discharge fevers breast issues Chief Complaint: Breast pain Time Seen by MD: 11:59 Primary Care Provider: NII History of Present Illness: Nurses Notes, Medications, Allergies Allergies: Coded Allergies: Ibuprofen (Verified Allergy, Unknown, 04/25/23) Levothyroxine (Verified Allergy, Unknown, 04/25/23) Home Meds Active Scripts Acetaminophen (Acetaminophen) 500 Mg Tab, 500 MG PO Q6HP PRN for 10 Days, #40 TAB 0 Refills Prov:NAM VARELA [employer] 10/07/24 Cephalexin Monohydrate (Cephalexin) 500 Mg Tab, 1 TAB PO QID for 10 Days, #40 TAB 0 Refills Prov:NAM VARELA [employer] 10/07/24 Sulfamethoxazole W/Trimethopri (Bactrim Ds Tablet) 1 Tab Tb, 1 TAB PO BID for 7 Days, #14 TAB 0 Refills Prov:NAM VARELA [employer] 10/07/24 Doxycycline (Monohydrate) (Doxycycline) 100 Mg Tab, 100 MG PO BID for 5 Days, #10 TAB Prov:JOHN GAMBLE RESIDENT 08/04/24 Amoxicillin & Pot Clavulanate (AUGMENTIN TABLET) 875 Mg Tb, 875 MG PO BID for 5 Days, #10 TAB [facility] 08/04/24 Prednisone (Prednisone) 20 Mg Tab, 40 MG PO DAILY for 4 Days, #8 MG [facility] 08/04/24 Loratadine (CLARITIN TABLET) 10 Mg Tb, 10 MG PO DAILYPRN PRN for 7 Days, #7 TAB Prov:JOHN GAMBLE RESIDENT 08/04/24 Albuterol Sulfate (Ventolin) 2.5 Mg/0.5 Ml Nb, 2.5 MG NEB Q4HPRN PRN for 30 Days, #30 INH Prov:MAXIME GRIDER RESIDENT 01/11/24 Reported Medications Montelukast Sodium (MONTELUKAST SODIUM) 10 Mg Tab, 1 TAB PO DAILY 08/02/24 Docusate Sodium (Colace) 100 Mg Cap, 100 MG PO DAILY for CONSTIPATION, CAP 01/08/24 Cholecalciferol (VITAMIN D3) 2,000 Unit Tab, 5000 UNIT OR QWEEKLY for LOW VITAMIN D, TAB 01/08/24 Cyclobenzaprine Hcl (Cyclobenzaprine Hcl) 10 Mg Tab, 5 MG PO BID for MUSCLE RELAXANT for 30 Days, MG 11/30/23 Oxycodone W/ Acetaminophen (Apap/Oxycodone) 1 Tab Tab, 1 TAB PO QID PRN for BACK PAIN,, #90 TAB 10/325 08/27/23 Buprenorphine (BUTRANS) 5 Mcg/Hr Dis, 1 PATCH TOP QWEEKLY 05/07/23 Famotidine (Famotidine) 40 Mg Tab, 1 TAB PO DAILY for GI PREVENTION 03/03/23 Ferrous Sulfate (Ferosul) 325 Mg Tab, 325 PO DAILY for ANEMIA 03/03/23 Gabapentin (Gabapentin) 300 Mg Cap, 300 MG PO BID PRN for NEUROPATHRY LEG PAIN 03/02/23 Mode of Arrival: Ambulatory Past Medical History PAST MEDICAL HISTORY: Anemia, Anxiety, Asthma, COPD, Thyroid Surgical History: Appendectomy, Cholecystectomy, , Tonsillectomy ECD History: No Pertinent ECD History Family History Family History: Reviewed,noncontributory to illness Social History Smoker: Non-Smoker Alcohol: Denies ETOH Use Drugs: Denies Drug Use Lives In: Home All Other Systems: Reviewed and Negative (Per HPI) Physical Exam General Appearance: No Apparent Distress, Normal HEENT: Normal ENT Inspection, Pharynx Normal, TMs Normal Neck: Full Range of Motion, Non-Tender, Normal, Normal Inspection Respiratory: Chest Non-Tender, Lungs Clear, No Accessory Muscle Use, No Respiratory Distress, Normal Breath Sounds Cardiovascular: No Edema, No JVD, No Murmur, No Gallop, Normal Peripheral Pulses, Regular Rate/Rhythm Breast Exam: Deferred Gastrointestinal: No Organomegaly, Non Tender, No Pulsatile Mass, Normal Bowel Sounds, Soft Genitalia: Deferred Pelvic: Deferred Rectal: Deferred Extremities: No calf tenderness, Normal capillary refill, Normal inspection, Normal range of motion, Non-tender, No pedal edema Musculoskeletal : Apperance: Normal Neurologic: Alert, No Motor Deficits, Normal Affect, Normal Mood, No Sensory Deficits Cerebellar Function: Normal Reflexes: Normal Skin: Dry, Normal Color, Warm Lymphatic: No Adenopathy Was a procedure done? Was a procedure done?: No Images 1 - non fluctuant 2x2 cm erythema. no fluctuance. TTP Differential Diagnosis (INTG) Differential Diagnosis: Abrasion, Cellulitis, Contusion X-Ray, Labs, Meds, VS Vital Signs Date Time Temp Pulse Resp B/P (MAP) Pulse Ox O2 Delivery O2 Flow Rate FiO2 10/07/24 14:31 100 18 96 Room Air 10/07/24 14:31 98.0 100 18 140/98 (112) 96 98.0 10/07/24 11:46 98.0 100 18 140/98 (112) 96 Lab Test 10/07/24 15:03 Range/Units White Blood Count 6.6 4.4-10.8 10^3/uL Red Blood Count 4.93 4.0-5.20 10^6/uL Hemoglobin 13.5 12.2-16.2 g/dL Hematocrit 41.0 36.0-46.0 % Mean Corpuscular Volume 83.2 80.0-100.0 fL Mean Corpuscular Hemoglobin 27.3 L 28.0-32.0 pg Mean Corpuscular Hemoglobin Concent 32.8 32.0-36.0 g/dL Red Cell Distribution Width 13.9 11.8-14.3 % Platelet Count 287 140-450 10^3/uL Mean Platelet Volume 7.7 6.9-10.8 fL Neutrophils (%) (Auto) 57.6 37.0-80.0 % Lymphocytes (%) (Auto) 34.2 10.0-50.0 % Monocytes (%) (Auto) 5.6 0.0-12.0 % Eosinophils (%) (Auto) 2.1 0.0-7.0 % Basophils (%) (Auto) 0.5 0.0-2.0 % Neutrophils # (Auto) 3.8 1.6-8.6 10 ^3/uL Lymphocytes # (Auto) 2.3 0.4-5.4 10 ^3/uL Monocytes # (Auto) 0.4 0-1.3 10 ^3/uL Eosinophils # (Auto) 0.1 0-0.8 10 ^3/uL Basophils # (Auto) 0 0-0.2 10 ^3/uL Nucleated Red Blood Cells 0.1 % Sodium Level 139 136-145 mmol/L Potassium Level 3.6 3.5-5.1 mmol/L Chloride Level 107 98-107 mmol/L Carbon Dioxide Level 22 20-31 mmol/L Anion Gap 10 5-15 Blood Urea Nitrogen < 5 L 9-23 mg/dL Creatinine 0.66 0.550-1.02 mg/dL Glomerular Filtration Rate Calc 112 >90 mL/min BUN/Creatinine Ratio 7.6 L 10.0-20.0 Serum Glucose 128 H 74-106 mg/dL Calcium Level 9.8 8.7-10.4 mg/dL Current Medications Medications (Trade) Dose Ordered Sig/Jessica Route Start Time Stop Time Status Last Admin Lidocaine HCl (Xylocaine 1%) 2.1 ONCE ONCE IJ 10/07/24 17:00 10/07/24 17:01 DC 10/07/24 16:54 PATIENT: INGRID WAGGONERT: [id number]: [id number] : 1980 LOC: ER ROOM / BED: / AGE / SEX: 44 / F ADM STATUS: REG ER SERVICE 1429 ORDERING PHYSICIAN: NAM VARELA NP PROCEDURE(s): RBRST - R BREAST ULTRASOUND REASON: R breast pain. abscess formation? ORDER NUMBER(s): [id number], ACCESSION NUMBER(s): [id number] US OF THE RIGHT BREAST INDICATION: R breast pain. abscess formation TECHNIQUE: All 4 quadrants, subareolar region and axillary region of the RIGHT breast were evaluated with ultrasound COMPARISON: None FINDINGS: Heterogeneous wider than tall circumscribed structure with through transmission in the superficial subcutaneous Soft-tissue in the right lower chest measures 1.6 x 1.2 x 2.8 cm possibly representing an infectious sebaceous cyst. IMPRESSION: Probably benign infected sebaceous cyst or small abscess in the superficial subcutaneous soft-tissue in the lower right chest, 6 o'clock position. Recommend repeat imaging after treatment to ensure complete resolution and exclude underlying neoplastic etiology. Recommend bilateral diagnostic mammography. ACR Bi Rads Category:Category 3 ATED BY: ANANT MCKEON MD DICTATED DATE/TIME: 02/23/25 1532 SIGNED BY: ANANT MCKEON MD SIGNED DATE/TIME: 10/07/241531 CC: X-Ray, Labs, Meds, VS Comment IMPRESSION: Probably benign infected sebaceous cyst or small abscess in the superficial subcutaneous soft-tissue in the lower right chest, 6 o'clock position. Recommend repeat imaging after treatment to ensure complete resolution and exclude underlying neoplastic etiology. Recommend bilateral diagnostic mammography. This patient presents with signs and symptoms consistent with a cutaneous abscess. The abscess is localized without any evidence of deep soft tissue infection based on physical examination. Differential diagnosis considered but not limited to: abscess, folliculitis, cellulitis. I also considered deep space infection, necrotizing fasciitis, sepsis, however, this is less likely as the patient does not have rapid expanding erythema or pain out of proportion to suggest necrotizing fasciitis. There is no evidence of sepsis on both a review of their vitals and clinical exam. The abscess is still quite firm, and the wound will not benefit from drainage at this time. Will start antibiotics and warm compresses. It is advised to return if symptoms worsen or do not resolve after completion of antibiotics. On reevaluation, patient had symptomatic improvement. Patient is stable for discharge at this time. External notes reviewed. Test results and diagnostic imaging interpreted. All diagnostic findings, discharge care, education and instructions provided Follow-up with PCP in 2 to 3 days Patient verbalized understanding and agreed to treatment plan Vital signs stable, afebrile, no acute distress noted Patient ambulatory with strong steady gait Advised to return precautions for any new or worsening symptoms, return to ER immediately for re-evaluation Patient is aware that the purpose of this visit was for an acute medical emergency requiring emergent stabilization. Chronic conditions, including malignancies have not been ruled out. Patient is instructed to follow up with PCP as directed and discharge instructions for continued care and workup. If unable to arrange follow-up, patient is to return to the emergency department for reassessment. Patient (parent or legal guardian if applicable) was given verbal and written discharge instructions and acknowledges understanding. Time of 1ST Reevaluation: 15:47 Reevaluation 1ST: Improved Patient Education/Counseling: Diagnosis, Treatment Family Education/Counseling: Diagnosis, Treatment Departure 1 Departure Time of Disposition: 16:49 Impression: Primary Impression: Abscess of right breast Disposition: 01 HOME / SELF CARE / HOMELESS Condition: Fair e-Prescriptions Acetaminophen (Acetaminophen) 500 Mg Tab 500 MG PO Q6HP PRN for 10 Days, #40 TAB 0 Refills Prov: NAM VARELA [employer] 10/07/24 Cephalexin Monohydrate (Cephalexin) 500 Mg Tab 1 TAB PO QID for 10 Days, #40 TAB 0 Refills Prov: NAM VARELA [employer] 10/07/24 Sulfamethoxazole W/Trimethopri (Bactrim Ds Tablet) 1 Tab Tb 1 TAB PO BID for 7 Days, #14 TAB 0 Refills Prov: NAM VARELA [employer] 10/07/24 Critical Care Note Critical Care Time?: No Stability Stability form required: No Heart Score Heart Score: Heart Score Response (Comments) Value History N/A 0 EKG N/A 0 Age N/A 0 Risk Factors N/A 0 Troponin N/A 0 Total 0 NAM VARELA [employer] Oct 07, 2024 15:50
[2024-10-07 15:59] LABS: Basophils # (auto) 0 10 ^3/uL (0-0.2); Basophils % (auto) 0.5 % (0.0-2.0); Eosinophils # (auto) 0.1 10 ^3/uL (0-0.8); Eosinophils % (auto) 2.1 % (0.0-7.0); Hemoglobin 13.5 g/dL (12.2-16.2); Lymphocytes # (auto) 2.3 10 ^3/uL (0.4-5.4); Lymphocytes % (auto) 34.2 % (10.0-50.0); Mean Corpuscular Hemoglobin 27.3 pg (28.0-32.0); Mean Corpuscular Hgb Conc. 32.8 g/dL (32.0-36.0); Mean Corpuscular Volume 83.2 fL (80.0-100.0); Monocytes # (auto) 0.4 10 ^3/uL (0-1.3); Monocytes % (auto) 5.6 % (0.0-12.0); Neutrophils # (auto) 3.8 10 ^3/uL (1.6-8.6); Neutrophils % (auto) 57.6 % (37.0-80.0); Nucleated Red Blood Cells % 0.1 %; Platelet Count (auto) 287 10^3/uL (140-450); Red Blood Cells 4.93 10^6/uL (4.0-5.20); Red Cell Distribution Width 13.9 % (11.8-14.3); White Blood Cell 6.6 10^3/uL (4.4-10.8)
[2024-10-07 16:00] LABS: BUN/Creatinine Ratio 7.6 (10.0-20.0); Blood Urea Nitrogen < 5 mg/dL (9-23); Glucose 128 mg/dL (74-106)
[2024-10-07] MEDS: HYDROcodone-ACET 7.5/325MG TAB PO ONE (16:50)
[2024-10-07] MEDS: LIDOCAINE 1% HCL (LOCAL ANESTH.) INJ 20ML MDV IJ ONE (16:54)
[2024-10-07] MEDS: cefTRIAXone SOD 1,000 MG VL IM ONE (16:54)
== END 2024-10-07 16:50 | disposition home or self-care (01) ==
LOC: ER 11:19
DX: N61.1 Abscess of the breast and nipple (principal); F41.9 Anxiety disorder, unspecified; J45.909 Unspecified asthma, uncomplicated; Z90.89 Acquired absence of other organs; Z90.49 Acquired absence of other specified parts of digestive tract; Z88.6 Allergy status to analgesic agent; Z88.1 Allergy status to other antibiotic agents; Z79.899 Other long term (current) drug therapy
CPT/HCPCS: 36415; 76642; 80048; 85025; 96372; 99285; J0696; J2003

== ENCOUNTER 2024-12-12 12:43 | Inpatient (IN) | payer MEDICAID ==
[~2024-12-12] VITALS: Ht 170.2 cm; Wt 93.1 kg
[~2024-12-12 12:43] MED LIST changes: +ACET500T58 PO; +BACDST PO; +CEPH500T PO
[2024-12-12] MEDS: DexAMETHasone SOD PHOS 10MG/1ML VIAL INJ IV ONE (12:48)
[2024-12-12] MEDS: EPINEPHrine HCL 0.5 ML NEB NEB ONE ×2 (13:01→13:42)
[2024-12-12] MEDS: BUDESONIDE (INHALATION) 0.5 MG/2 ML NEB NEB ONE (13:01)
--- NOTE | 2024-12-12 13:36 | ED.PDOC ---
History of Present Illness HPI Comments 44-year-old female with a history of vocal cord dysfunction, asthma/COPD, anxiety, anemia and thyroid disease brought in by EMS from home complaining of difficulty breathing for the last hour. EMS reports patient was administered epinephrine and Benadryl without relief. On arrival to the ER, the patient is i n severe respiratory distress with audible stridor as breath sounds. Patient denies any chest pain or recent illness. Patient is able to state her throat feels like it is closing. Patient has a history of similar symptoms in the past, seen here and responded well to racemic epinephrine and inhaled steroids. Additional history is unobtainable due to severity of symptoms. Chief Complaint: Shortness of Breath Time Seen by MD: 13:00 Primary Care Provider: NII Reviewed Notes: Nurses Notes, Batching Operator Notes, Medications, Allergies Allergies: Coded Allergies: Ibuprofen (Verified Allergy, Unknown, 04/25/23) Levothyroxine (Verified Allergy, Unknown, 04/25/23) Home Meds Active Scripts Acetaminophen (Acetaminophen) 500 Mg Tab, 500 MG PO Q6HP PRN for 10 Days, #40 TAB 0 Refills Prov:NAM VARELA EL TEACHER 10/07/24 Cephalexin Monohydrate (Cephalexin) 500 Mg Tab, 1 TAB PO QID for 10 Days, #40 TAB 0 Refills Prov:NAM VARELA EL TEACHER 10/07/24 Sulfamethoxazole W/Trimethopri (Bactrim Ds Tablet) 1 Tab Tb, 1 TAB PO BID for 7 Days, #14 TAB 0 Refills Prov:NAM VARELA EL TEACHER 10/07/24 Doxycycline (Monohydrate) (Doxycycline) 100 Mg Tab, 100 MG PO BID for 5 Days, #10 TAB Prov:JOHN GAMBLE RESIDENT 08/04/24 Amoxicillin & Pot Clavulanate (AUGMENTIN TABLET) 875 Mg Tb, 875 MG PO BID for 5 Days, #10 TAB Prov:JOHN GAMBLE RESIDENT 08/04/24 Prednisone (Prednisone) 20 Mg Tab, 40 MG PO DAILY for 4 Days, #8 MG Prov[facility] 08/04/24 Loratadine (CLARITIN TABLET) 10 Mg Tb, 10 MG PO DAILYPRN PRN for 7 Days, #7 TAB Prov:[facility] 08/04/24 Albuterol Sulfate (Ventolin) 2.5 Mg/0.5 Ml Nb, 2.5 MG NEB Q4HPRN PRN for 30 Days, #30 INH Prov:MAXIME GRIDER RESIDENT 01/11/24 Reported Medications Montelukast Sodium (MONTELUKAST SODIUM) 10 Mg Tab, 1 TAB PO DAILY 08/02/24 Docusate Sodium (Colace) 100 Mg Cap, 100 MG PO DAILY for CONSTIPATION, CAP 01/08/24 Cholecalciferol (VITAMIN D3) 2,000 Unit Tab, 5000 UNIT OR QWEEKLY for LOW VITAMIN D, TAB 01/08/24 Cyclobenzaprine Hcl (Cyclobenzaprine Hcl) 10 Mg Tab, 5 MG PO BID for MUSCLE RELAXANT for 30 Days, MG 11/30/23 Oxycodone W/ Acetaminophen (Apap/Oxycodone) 1 Tab Tab, 1 TAB PO QID PRN for BACK PAIN,, #90 TAB 10/325 08/27/23 Buprenorphine (BUTRANS) 5 Mcg/Hr Dis, 1 PATCH TOP QWEEKLY 05/07/23 Famotidine (Famotidine) 40 Mg Tab, 1 TAB PO DAILY for GI PREVENTION 03/03/23 Ferrous Sulfate (Ferosul) 325 Mg Tab, 325 PO DAILY for ANEMIA 03/03/23 Gabapentin (Gabapentin) 300 Mg Cap, 300 MG PO BID PRN for NEUROPATHRY LEG PAIN 03/02/23 Information Source: Patient, Emergency Med Personnel Mode of Arrival: EMS Severity: Moderate Timing: Minutes Duration: Since onset, Minutes Prehospital treatment: Other (IM Epi Dose/Benadryl) Past Medical History PAST MEDICAL HISTORY: Anemia, Anxiety, Asthma, COPD, Thyroid Past Medical History (Other): Vocal cord dysfunction Surgical History: Appendectomy, Cholecystectomy, , 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 History Family History Family History: Reviewed,noncontributory to illness Social History Smoker: Non-Smoker Alcohol: Denies ETOH Use Drugs: Denies Drug Use Lives In: Home Constitutional: denies: chills, diaphoresis, fatigue, fever, malaise, sweats, weakness, others EENTM: denies: blurred vision, double vision, ear bleeding, ear discharge, ear drainage, ear pain, ear ringing, eye pain, eye redness, hearing loss, mouth pain, mouth swelling, nasal discharge, nose bleeding, nose congestion, nose pain, photophobia, tearing, throat pain, throat swelling, voice changes, others Respiratory: reports: shortness of breath, wheezing; denies: cough, hemoptysis, orthopnea, SOB at rest, SOB with excertion, stridor, others Cardiovascular: denies: chest pain, dizzy spells, diaphoresis, Dyspnea on exertion, edema, irregular heart beat, left arm pain, lightheadedness, palpitations, PND, syncope, others Gastrointestinal: denies: abdomen distended, abdominal pain, blood streaked bowels, constipated, diarrhea, dysphagia, difficulty swallowing, hematemesis, melena, nausea, poor appetite, poor fluid intake, rectal bleeding, rectal pain, vomiting, others Genitourinary: denies: abnormal vagina bleeding, burning, dyspareunia, dysuria, flank pain, frequency, hematuria, incontinence, pain, , vagina discharge, urgency, others Neurological: denies: dizziness, fainting, headache, left sided numbness, left sided weakness, numbness, paresthesia, pre-existing deficit, right sided numbness, right sided weakness, seizure, speech problems, tingling, tremors, weakness, others Musculoskeletal: denies: back pain, gout, joint pain, joint swelling, muscle pain, muscle stiffness, neck pain, others Integumetry: denies: bruises, change in color, change in hair/nails, dryness, laceration, lesions, lumps, rash, wounds, others Allergic/Immunocompromised: denies: Difficulty Healing, Frequent Infections, Hives, Itching, others Hematologic/Lymphatic: denies: anemia, blood clots, easy bleeding, easy bruising, swollen glands, others Endocrine: denies: excessive hunger, excessive sweating, excessive thirst, excessive urination, flushing, intolerance to cold, intolerance to heat, unexplained weight gain, unexplained weight loss, others Psychiatric: denies: anxiety, bipolar disorder, depression, hopeless, panic disorder, schizophrenia, sleepless, suicidal, others All Other Systems: Reviewed and Negative Physical Exam General Appearance: Obese, Severe Distress HEENT: Other (Pupils and face symmetric. Moist mucous membranes. No pharyngeal erythema, edema, exudate or uvular deviation) Neck: Full Range of Motion, Normal Inspection Respiratory: Accessory Muscle Use, Lungs Clear, Respiratory Distress, Stridor Cardiovascular: No Edema, No JVD, Tachycardia Breast Exam: Deferred Gastrointestinal: Non Tender, Soft Genitalia: Deferred Pelvic: Deferred Rectal: Deferred Extremities: Normal inspection, Normal range of motion, Non-tender, No pedal edema Neurologic: Alert (Oriented x4), Other (Moves all extremities and follows commands. Anxious.) Cerebellar Function: NOT DONE Reflexes: NOT DONE Skin: Dry, Normal Color, Warm Lymphatic: NOT DONE Was a procedure done? Was a procedure done?: No EKG EKG : Comments Sinus tach, rate 117, normal intervals, normal axis, normal QRS, nonspecific T changes. Differential Dx Considerations may include: Laryngospasm, COPD/asthma, bronchitis, pneumonia, CHF, anxiety, among others X-Ray, Labs, Meds, VS Vital Signs Date Time Temp Pulse Resp B/P (MAP) Pulse Ox O2 Delivery O2 Flow Rate FiO2 12/12/24 18:47 103 24 119/77 12/12/24 18:17 104 26 119/77 12/12/24 18:00 98.2 109 24 119/77 (91) 98 98.2 12/12/24 17:00 103 23 117/78 (91) 95 12/12/24 16:00 106 27 99/55 (70) 93 12/12/24 16:00 106 12/12/24 14:00 134 28 132/87 (102) 94 12/12/24 13:57 20 96 Nasal Cannula* 2 28 12/12/24 13:51 22 97 Nasal Cannula* 2 28 12/12/24 13:50 130 12/12/24 13:49 22 97 Nasal Cannula* 2 28 12/12/24 13:01 19 99 Nasal Cannula* 2 28 12/12/24 13:00 117 12/12/24 12:55 98.5 130 32 168/88 (114) 99 98.5 12/12/24 12:53 97.0 142 20 152/83 (106) 100 97.0 Lab Test 12/12/24 17:21 12/12/24 14:35 12/12/24 14:19 12/12/24 13:00 Range/Units Influenza Type A Antigen Negative Negative Influenza Type B Antigen Negative Negative SARS-CoV-2 Antigen (Rapid) Negative NEGATIVE Urine Color Colorless Yellow Urine Clarity Clear Clear Urine pH 6.0 5.0-9.0 Urine Specific [place] 1.002 1.001-1.035 Urine Protein Negative Negative Urine Ketones Negative Negative Urine Blood Negative Negative /uL Urine Nitrite Negative Negative Urine Bilirubin Negative Negative Urine Urobilinogen Normal Negative mg/dL Urine Leukocyte Esterase Negative Negative /uL Urine RBC <1 0 - 4 /hpf Urine Microscopic WBC 0-5 /HPF Urine Squamous Epithelial Cells Few <5 /hpf Urine Bacteria None seen None Seen /hpf Urine Glucose Normal Normal mg/dL Troponin I High Sensitivity < 3 L < 3 L </=34 ng/L White Blood Count 13.7 H 4.4-10.8 10^3/uL Red Blood Count 5.10 4.0-5.20 10^6/uL Hemoglobin 14.0 12.2-16.2 g/dL Hematocrit 42.5 36.0-46.0 % Mean Corpuscular Volume 83.3 80.0-100.0 fL Mean Corpuscular Hemoglobin 27.4 L 28.0-32.0 pg Mean Corpuscular Hemoglobin Concent 32.8 32.0-36.0 g/dL Red Cell Distribution Width 14.7 H 11.8-14.3 % Platelet Count 374 140-450 10^3/uL Mean Platelet Volume 7.4 6.9-10.8 fL Neutrophils (%) (Auto) 47.8 37.0-80.0 % Lymphocytes (%) (Auto) 43.1 10.0-50.0 % Monocytes (%) (Auto) 7.1 0.0-12.0 % Eosinophils (%) (Auto) 1.7 0.0-7.0 % Basophils (%) (Auto) 0.3 0.0-2.0 % Neutrophils # (Auto) 6.5 1.6-8.6 10 ^3/uL Lymphocytes # (Auto) 5.9 H 0.4-5.4 10 ^3/uL Monocytes # (Auto) 1.0 0-1.3 10 ^3/uL Eosinophils # (Auto) 0.2 0-0.8 10 ^3/uL Basophils # (Auto) 0 0-0.2 10 ^3/uL Nucleated Red Blood Cells 0.0 % Sodium Level 139 136-145 mmol/L Potassium Level 2.9 L 3.5-5.1 mmol/L Chloride Level 106 98-107 mmol/L Carbon Dioxide Level 20 20-31 mmol/L Anion Gap 13 5-15 Blood Urea Nitrogen 8 L 9-23 mg/dL Creatinine 0.80 0.550-1.02 mg/dL Glomerular Filtration Rate Calc 94 >90 mL/min BUN/Creatinine Ratio 10.0 10.0-20.0 Serum Glucose 150 H 74-106 mg/dL Calcium Level 10.3 8.7-10.4 mg/dL B-Type Natriuretic Peptide 5.42 0-100 pg/mL Beta HCG, Quantitative 0.3 L 1.5-4.2 mIU/mL Test 12/12/24 12:50 Range/Units Lactic Acid Level 4.3 *H 0.4-2.0 mmol/L Current Medications Medications (Trade) Dose Ordered Sig/Jessica Route Start Time Stop Time Status Last Admin Epinephrine HCl (Racenephrine) 0.5 ml ONCE ONCE NEB 12/12/24 12:45 12/12/24 12:46 DC 12/12/24 13:01 Dexamethasone Sodium Phosphate (Decadron Injection) 10 mg ONCE ONCE IV 12/12/24 12:45 12/12/24 12:46 DC 12/12/24 12:48 Budesonide (Pulmicort) 0.5 mg ONCE ONCE NEB 12/12/24 13:00 12/12/24 13:01 DC 12/12/24 13:01 Magnesium Sulfate/ Dextrose 100 ml @ 100 mls/hr Q1H IV 12/12/24 13:45 12/12/24 15:44 DC 12/12/24 14:59 Epinephrine HCl (Racenephrine) 0.5 ml ONCE ONCE NEB 12/12/24 13:45 12/12/24 13:46 DC 12/12/24 13:42 Sodium Chloride 1,000 ml @ 1,000 mls/hr Q1H ONCE IV 12/12/24 13:45 12/12/24 14:44 DC 12/12/24 13:42 Lorazepam (Ativan Inj) 0.5 mg ONCE ONCE IV 12/12/24 13:45 12/12/24 13:46 DC 12/12/24 13:42 Albuterol (Ventolin Medneb) 10 mg ONCE ONCE NEB 12/12/24 13:45 12/12/24 13:47 DC 12/12/24 13:57 Sodium Chloride 1,000 ml @ 1,000 mls/hr Q1H ONCE IV 12/12/24 13:45 12/12/24 14:44 DC 12/12/24 15:40 Sodium Chloride 1,000 ml @ 1,000 mls/hr Q1H ONCE IV 12/12/24 14:30 12/12/24 15:29 DC 12/12/24 15:40 Morphine Sulfate 4 mg ONCE ONCE IV 12/12/24 17:45 12/12/24 17:46 DC 12/12/24 18:17 Ondansetron HCl (Zofran) 4 mg ONCE ONCE IV 12/12/24 17:45 12/12/24 17:46 DC 12/12/24 18:15 Potassium Chloride 50 ml @ 25 mls/hr ONCE ONCE IV 12/12/24 19:00 12/12/24 20:59 DC 12/12/24 21:15 Sodium Chloride 100 ml @ 50 mls/hr ONCE ONCE IV 12/12/24 19:00 12/12/24 20:59 DC 12/12/24 21:15 PROCEDURE(s): CXRP - CHEST PORTABLE REASON: diff breathing ORDER NUMBER(s): [id number], ACCESSION NUMBER(s): [id number] CHEST RADIOGRAPH Indication: diff breathing Technique: Single frontal view of the chest was obtained Comparison: XY CHEST PORTABLE on DOS: 08/02/24, XY CHEST PORTABLE on DOS: 03/26/24, XY CHEST XRAY 1 VIEW on DOS: 01/10/24 FINDINGS: Lines and Tubes: None Lungs: No focal consolidation. Pleura: No effusion. No pneumothorax. Cardiomediastinal contours: Unremarkable Bones: No acute osseous abnormality. IMPRESSION: 1. No acute cardiopulmonary disease. X-Ray, Labs, Meds, VS Comment 44-year-old female with a history of vocal cord dysfunction, asthma/COPD, anemia, anxiety and thyroid disease brought in by EMS in respiratory distress with stridorous breath sounds Vitals remarkable for heart rate 109, respiratory rate 24 Exam remarkable for accessory muscle use, stridorous breath sounds, anxious appearance, clear lungs Rhythm strip independently interpreted by me: Sinus tach, rate 117, no ectopy. Chest x-ray unremarkable CBC remarkable for WBC 13.7, metabolic panel remarkable for potassium 2.9, BNP, troponin, hCG and UA unremarkable. COVID and influenza negative Patient treated with the following in the ED: Racemic epi neb x2, budesonide neb x1, albuterol mg continuous neb x1, Decadron 10 mg IV, magnesium rider 2 g IV, morphine 4 mg IV, Zofran 4 mg IV, Ativan 0.5 mg IV On re-evaluation, patient's stridor has resolved and she is not in respiratory distress on nasal cannula oxygen. Plan is to admit the patient for respiratory support as needed. Time of 1ST Reevaluation: 13:30 Reevaluation 1ST: Unchanged Patient Education/Counseling: Diagnosis, Treatment, Prognosis Family Education/Counseling: No Family Present Departure 1 Departure Time of Disposition: 16:30 Impression: Primary Impression: Acute respiratory failure Qualified Codes: J96.00 - Acute respiratory failure, unspecified whether with hypoxia or hypercapnia Additional Impression: Hypokalemia Disposition: ADMITTED INPATIENT Admit to: [facility] Condition: Guarded Critical Care Note Critical Care Time?: Yes (45 min-critical care time only) Critical care comment: Critical care time including multiple bedside re-evaluations, review of lab and imaging studies, and discussion of the case with the admitting provider. Patient is high risk for respiratory and/or metabolic decompensation. Stability Stability form required: No Heart Score Heart Score: Heart Score Response (Comments) Value History N/A 0 EKG N/A 0 Age N/A 0 Risk Factors N/A 0 Troponin N/A 0 Total 0 I personally scribed for RAJESH BENJAMIN MD ([email or web address]) on 12/12/24 at 13:36. Electronically submitted by Milton Atkinson ([employer]). I personally scribed for RAJESH BENJAMIN MD ([email or web address]) on 12/12/24 at 17:37. Electronically submitted by Milton Atkinson ([employer]). RAJESH BENJAMIN MD Dec 12, 2024 13:36
[2024-12-12 13:40] LABS: Basophils # (auto) 0 10 ^3/uL (0-0.2); Basophils % (auto) 0.3 % (0.0-2.0); Eosinophils # (auto) 0.2 10 ^3/uL (0-0.8); Eosinophils % (auto) 1.7 % (0.0-7.0); Hematocrit 42.5 % (36.0-46.0); Lymphocytes # (auto) 5.9 10 ^3/uL (0.4-5.4); Lymphocytes % (auto) 43.1 % (10.0-50.0); Mean Corpuscular Hemoglobin 27.4 pg (28.0-32.0); Mean Corpuscular Hgb Conc. 32.8 g/dL (32.0-36.0); Mean Corpuscular Volume 83.3 fL (80.0-100.0); Monocytes % (auto) 7.1 % (0.0-12.0); Neutrophils # (auto) 6.5 10 ^3/uL (1.6-8.6); Neutrophils % (auto) 47.8 % (37.0-80.0); Platelet Count (auto) 374 10^3/uL (140-450); Red Cell Distribution Width 14.7 % (11.8-14.3); White Blood Cell 13.7 10^3/uL (4.4-10.8)
[2024-12-12] MEDS: SODIUM CHLORIDE 0.9% 1,000 ML IV ONE ×3 (13:42→15:40)
[2024-12-12] MEDS: LORazepam 2MG/ML-1ML VIAL IV ONE (13:42)
[2024-12-12] MEDS: MAGNESIUM SULFATE 1GM/100ML 100 ML IV SCH (13:51)
[2024-12-12] MEDS: ALBUTEROL SULF 2.5 MG/0.5ML(0.5%) NEB SOLN NEB ONE (13:57)
[2024-12-12 14:01] LABS: Chloride 106 mmol/L (98-107); Sodium 139 mmol/L (136-145)
[2024-12-12 14:02] LABS: Anion Gap 13 (5-15)
[2024-12-12 14:03] LABS: Calcium 10.3 mg/dL (8.7-10.4)
[2024-12-12 14:09] LABS: Blood Urea Nitrogen 8 mg/dL (9-23); Carbon Dioxide 20 mmol/L (20-31); Glucose 150 mg/dL (74-106); Potassium 2.9 mmol/L (3.5-5.1)
[2024-12-12 14:18] LABS: Lactic Acid w/Reflex 4.3 mmol/L (0.4-2.0)
[2024-12-12 14:36] LABS: Urine Bacteria None Seen /hpf (None Seen)
--- NOTE | 2024-12-12 14:46 | DVH ---
CHEST RADIOGRAPH Indication: diff breathing Technique: Single frontal view of the chest was obtained Comparison: XY CHEST PORTABLE on DOS: 08/02/24, XY CHEST PORTABLE on DOS: 03/26/24, XY CHEST XRAY 1 EW on DOS: 01/10/24 FINDINGS: Lines and Tubes: None Lungs: No focal consolidation. Pleura: No effusion. No pneumothorax. Cardiomediastinal contours: Unremarkable Bones: No acute osseous abnormality. IMPRESSION: 1. No acute cardiopulmonary disease.
[2024-12-12 14:49] LABS: Urine Blood Negative /uL (Negative); Urine Clarity Clear (Clear); Urine Color Colorless (Yellow); Urine Protein, UAD Negative (Negative); Urine Specific Gravity 1.002 (1.001-1.035); Urine Squamous Epithelial Cell FEW /hpf (<5); Urine Urobilinogen Normal (Negative)
[2024-12-12] MEDS ORDERED: POTASSIUM CHL 20MEQ/100ML 100 ML IV ONE (17:45)
[2024-12-12] MEDS: ONDANSETRON HCL 4 MG/2 ML VIAL IV ONE (18:15)
[2024-12-12] MEDS: MORPHINE SULFATE 4 MG/ML SYR/VIAL IV ONE (18:17)
--- NOTE | 2024-12-12 18:39 | ECG ---
[facility] Test Date: 2024-12-12 Test Time: 12:58:27 Pat Name: ALMA WAGGONER Department: ED Room: [address] [place] [address] Gender: F Recruitment Coordinator: YASSINE : 1980 Requested By: RAJESH CONNER Order Number: [id number] Reading MD: Shantanu Buitrago Measurements Intervals [place] Rate: 117 P: 53 UT: 135 QRS: 53 QRSD: 98 T: -4 QT: 315 QTc: 440 Interpretive Statements Sinus tachycardia Probable left atrial enlargement Borderline T abnormalities, inferior leads Electronically Signed On 12-13-2024 8:37:01 PDT by Shantanu Buitrago Please click the below link to view image of tracing.
[2024-12-12 18:44] LABS: COVID19 ANTIGEN SOFIA FIA NEGATIVE (NEGATIVE); Rapid Influenza A Negative (Negative); Rapid Influenza B Negative (Negative)
[2024-12-12] MEDS: SODIUM CHL 0.9% 100 ML IV ONE (19:00)
[2024-12-12] MEDS ORDERED: NITROGLYCERIN 0.4 MG SL TAB SL PRN (19:15)
[2024-12-12] MEDS ORDERED: ONDANSETRON HCL 4 MG/2 ML VIAL IV PRN (19:15)
[2024-12-12] MEDS ORDERED: ALBUTEROL SULF 2.5 MG/0.5ML(0.5%) NEB SOLN NEB PRN (19:15)
[2024-12-12] MEDS ORDERED: IPRATROPIUM BROM 0.5 MG/2.5ML INH SOL NEB PRN (19:15)
[2024-12-12] MEDS ORDERED: MORPHINE SULFATE INJ 2 MG/ml SYRG IV PRN (19:15)
[2024-12-12 19:30] VITALS: PULSE 96; RESP 23; O2SAT 95
[2024-12-12 20:47] VITALS: BP 110/66; PULSE 92; RESP 16; O2SAT 96
[2024-12-12] MEDS: POTASSIUM CHL 20MEQ/50ML 50 ML IV ONE (21:15)
--- NOTE | 2024-12-12 21:48 | DVHHP2 ---
History of Present Illness Reason for Visit: Shortness for breath History of Present Illness 44-year-old female with a history of asthma and COPD presents for evaluation of shortness for breath. Patient presents with a one day history of worsening shortness for breath not being relieved by her inhaler and nebulizer at home. D enies cough or fever. No chest pain or palpitations. No other acute symptoms. Past Medical History COPD, thyroid, asthma, anxiety Past Surgical History Cholecystectomy, , tonsillectomy and appendectomy Family History Noncontributory Smoke: No ALCOHOL: none Drugs: None Lives: with Family Review of Systems Review of Systems Review of systems are currently negative otherwise addressed in HPI. Allergies: Coded Allergies: Ibuprofen (Verified Allergy, Unknown, 04/25/23) Levothyroxine (Verified Allergy, Unknown, 04/25/23) Medications Current Medications Medications Dose Ordered Sig/Jessica Route Start Time Stop Time Status Last Admin Dose Admin Albuterol 2.5 mg Q6HPRN PRN NEB 12/12/24 19:15 Ipratropium [place] 0.5 mg Q6HPRN PRN NEB 12/12/24 19:15 Methylprednisolone Sodium Succinate 40 mg BID IV 12/12/24 22:00 Ondansetron HCl 4 mg Q4HP PRN IV 12/12/24 19:15 Acetaminophen 650 mg Q6HP PRN PO 12/12/24 19:15 Nitroglycerin 0.4 mg Q5MINP PRN SL 12/12/24 19:15 Morphine Sulfate 2 mg Q30M PRN IV 12/12/24 19:15 Exam Vital Signs Vital Signs Date Time Temp Pulse Resp B/P (MAP) Pulse Ox O2 Delivery O2 Flow Rate FiO2 12/12/24 20:47 92 16 110/66 96 2.0 12/12/24 18:00 98.2 98.2 12/12/24 13:57 Nasal Cannula* 28 Exam Gen: 44-year-old female in mild distress, obese Skin: Warm, dry, normal color and texture, no rash. HEENT: Normocephalic atraumatic, mucous membranes moist and pink. Neck: Cervical and supraclavicular nodes normal without enlargement, trachea is midline, thyroid gland is normal without masses. Pulmonary: Bilateral wheeze Cardiac: Regular rate and rhythm. No murmur Abdomen: Soft, nontender, nondistended, bowel sounds present all 4 quadrants, no guarding, no rigidity, no organomegaly. Extremities: No cyanosis, clubbing, no edema Neuro: Cranial nerves II through XII grossly intact, normal affect and speech, no focal motor deficits. Labs/Xrays ORDERING PHYSICIAN: RAJESH BENJAMIN MD PROCEDURE(s): CXRP - CHEST PORTABLE REASON: diff breathing ORDER NUMBER(s): [id number], ACCESSION NUMBER(s): [id number] CHEST RADIOGRAPH Indication: diff breathing Technique: Single frontal view of the chest was obtained Comparison: XY CHEST PORTABLE on DOS: 08/02/24, XY CHEST PORTABLE on DOS: 03/26/24, XY CHEST XRAY 1 VIEW on DOS: 01/10/24 FINDINGS: Lines and Tubes: None Lungs: No focal consolidation. Pleura: No effusion. No pneumothorax. Cardiomediastinal contours: Unremarkable Bones: No acute osseous abnormality. IMPRESSION: 1. No acute cardiopulmonary disease. Labs Test 12/12/24 19:31 12/12/24 17:21 12/12/24 14:35 12/12/24 14:19 Range/Units D-Dimer, Quantitative 0.77 H 0.0-0.49 mg/L FEU Influenza Type A Antigen Negative Negative Influenza Type B Antigen Negative Negative SARS-CoV-2 Antigen (Rapid) Negative NEGATIVE Urine Color Colorless Yellow Urine Clarity Clear Clear Urine pH 6.0 5.0-9.0 Urine Specific [place] 1.002 1.001-1.035 Urine Protein Negative Negative Urine Ketones Negative Negative Urine Blood Negative Negative /uL Urine Nitrite Negative Negative Urine Bilirubin Negative Negative Urine Urobilinogen Normal Negative mg/dL Urine Leukocyte Esterase Negative Negative /uL Urine RBC <1 0 - 4 /hpf Urine Microscopic WBC 0-5 /HPF Urine Squamous Epithelial Cells Few <5 /hpf Urine Bacteria None seen None Seen /hpf Urine Glucose Normal Normal mg/dL Troponin I High Sensitivity < 3 L </=34 ng/L Test 12/12/24 13:00 12/12/24 12:50 Range/Units White Blood Count 13.7 H 4.4-10.8 10^3/uL Red Blood Count 5.10 4.0-5.20 10^6/uL Hemoglobin 14.0 12.2-16.2 g/dL Hematocrit 42.5 36.0-46.0 % Mean Corpuscular Volume 83.3 80.0-100.0 fL Mean Corpuscular Hemoglobin 27.4 L 28.0-32.0 pg Mean Corpuscular Hemoglobin Concent 32.8 32.0-36.0 g/dL Red Cell Distribution Width 14.7 H 11.8-14.3 % Platelet Count 374 140-450 10^3/uL Mean Platelet Volume 7.4 6.9-10.8 fL Neutrophils (%) (Auto) 47.8 37.0-80.0 % Lymphocytes (%) (Auto) 43.1 10.0-50.0 % Monocytes (%) (Auto) 7.1 0.0-12.0 % Eosinophils (%) (Auto) 1.7 0.0-7.0 % Basophils (%) (Auto) 0.3 0.0-2.0 % Neutrophils # (Auto) 6.5 1.6-8.6 10 ^3/uL Lymphocytes # (Auto) 5.9 H 0.4-5.4 10 ^3/uL Monocytes # (Auto) 1.0 0-1.3 10 ^3/uL Eosinophils # (Auto) 0.2 0-0.8 10 ^3/uL Basophils # (Auto) 0 0-0.2 10 ^3/uL Nucleated Red Blood Cells 0.0 % Sodium Level 139 136-145 mmol/L Potassium Level 2.9 L 3.5-5.1 mmol/L Chloride Level 106 98-107 mmol/L Carbon Dioxide Level 20 20-31 mmol/L Anion Gap 13 5-15 Blood Urea Nitrogen 8 L 9-23 mg/dL Creatinine 0.80 0.550-1.02 mg/dL Glomerular Filtration Rate Calc 94 >90 mL/min BUN/Creatinine Ratio 10.0 10.0-20.0 Serum Glucose 150 H 74-106 mg/dL Calcium Level 10.3 8.7-10.4 mg/dL B-Type Natriuretic Peptide 5.42 0-100 pg/mL Beta HCG, Quantitative 0.3 L 1.5-4.2 mIU/mL Lactic Acid Level 4.3 *H 0.4-2.0 mmol/L Assessment/Plan Assessment/Plan Assessment Acute on chronic hypoxic respiratory failure COPD exacerbation Hypokalemia Plan Admit the patient to telemetry to the hospitalist Cruz flores Methylprednisone Resume home medications Continue treatment per orders. Plan discussed with: Patient My Orders Orders - DEANNE INFANTE Procedure Category Date Status Time Albuterol Medneb PHA 12/12/24 In Process (Ventolin Medneb) 19:15 Ipratropium Medneb PHA 12/12/24 In Process (Atrovent Medneb) 19:15 Methylprednisolone PHA 12/12/24 In Process Sod Succ (Solu Medrol 22:00 Regular Diet DIET 12/13/24 Transmitted Breakfast Basic Metabolic Panel LAB 12/13/24 Verified 04:00 Admit ADMIT 12/12/24 Transmitted 19:13 Ondansetron Hcl PHA 12/12/24 In Process (Zofran) 19:15 Condition: Fair TARAN 12/12/24 In Process 19:13 Acetaminophen Tablet PHA 12/12/24 In Process (Tylenol Tablet) 19:15 Bedrest With Bathroom TARAN 12/12/24 In Process Privileg 19:13 Nitroglycerin PHA 12/12/24 In Process Sublingual (Ntrostat 19:15 Morphine Sulfate PHA 12/12/24 In Process Injection 19:15 Stat Ekg For Chest TARAN 12/12/24 In Process Pain 19:13 Notify Md Of Changes TAARN 12/12/24 In Process From Base 19:13 Entry Level Electrician For TARAN 12/12/24 In Process 24 Hours 19:13 Emergency Dysrhythmia TARAN 12/12/24 In Process Protocol 19:13 Rhythm Strips Once TARAN 12/12/24 In Process Every Shift 19:13 Oxygen By Nasal RT 12/12/24 Transmitted Cannula 19:13 Date of Service: Dec 12, 2024 Billing Provider: DEANNE INFANTE Common Visit Codes: [id number] INP/OBS CARE (HIGH) DEANNE INFANTE Dec 12, 2024 21:48
[2024-12-12] MEDS: methylPREDNISolone SOD SUCC 40 MG/ML VL IV SCH (22:08)
[2024-12-12] MEDS: traMADol HCL 50 MG TAB PO ONE (22:32)
[2024-12-12 22:50] VITALS: PULSE 90; RESP 17; O2SAT 97
[2024-12-13] VITALS (10 sets, daily range): BP systolic 109–134; BP diastolic 69–84; PULSE 75–104; RESP 16–18; TEMP 96.7–98.6; O2SAT 95–97
[2024-12-13] MEDS: ACETAMINOPHEN 325 MG TAB PO PRN (02:58)
[2024-12-13 05:06] LABS: Potassium 4.4 mmol/L (3.5-5.1); Sodium 141 mmol/L (136-145)
[2024-12-13 05:07] LABS: Anion Gap 8 (5-15); Calcium 9.3 mg/dL (8.7-10.4); Carbon Dioxide 21 mmol/L (20-31)
[2024-12-13 05:12] LABS: BUN/Creatinine Ratio 10.1 (10.0-20.0)
[2024-12-13 05:19] LABS: Blood Urea Nitrogen 7 mg/dL (9-23); Chloride 112 mmol/L (98-107); Glucose 143 mg/dL (74-106)
[2024-12-13 05:21] LABS: Lactic Acid w/Reflex 2.9 mmol/L (0.4-2.0)
[2024-12-13] MEDS: HYDROcodone-ACET 5/325MG TAB PO PRN (06:13)
[2024-12-13] MEDS: SODIUM CHLORIDE 0.9% 500 ML IV ONE (06:14)
[2024-12-13] MEDS: cefTRIAXone 1GM/50ML D5W 50 ML IV SCH (08:54)
--- NOTE | 2024-12-13 12:30 | DVHPN2 ---
Reviewed: Care Plan, H&P, Labs, Medications, Previous Orders, Radiology Changes from previous H/P or p: No Changes Objective Vitals Vital Signs Date Time Temp Pulse Resp B/P (MAP) Pulse Ox O2 Delivery O2 Flow Rate FiO2 12/13/24 09:00 98.6 92 17 128/69 (88) 95 98.6 12/13/24 08:48 Room Air* 0 21 Intake/Output Intake and Output 12/13/24 07:00 Intake Total 4000 ml Output Total 350 ml Balance 3650 ml Intake Oral 750 ml IV Total 3250 ml Output Urine Total 350 ml # Voids 2 Medications Current Medications Medications Dose Ordered Sig/Jessica Route Start Time Stop Time Status Last Admin Dose Admin Albuterol 2.5 mg Q6HPRN PRN NEB 12/12/24 19:15 Ipratropium [place] 0.5 mg Q6HPRN PRN NEB 12/12/24 19:15 Methylprednisolone Sodium Succinate 40 mg BID IV 12/12/24 22:00 12/13/24 08:53 40 MG Ondansetron HCl 4 mg Q4HP PRN IV 12/12/24 19:15 Acetaminophen 650 mg Q6HP PRN PO 12/12/24 19:15 12/13/24 02:58 650 MG Nitroglycerin 0.4 mg Q5MINP PRN SL 12/12/24 19:15 Morphine Sulfate 2 mg Q30M PRN IV 12/12/24 19:15 Ceftriaxone Sodium 50 ml @ 100 mls/hr DAILY@09 IV 12/13/24 09:00 12/13/24 08:54 100 MLS/HR Acetaminophen/ Hydrocodone [place] 1 tab Q8HPRN PRN PO 12/13/24 05:30 12/13/24 06:13 1 TAB Laboratory Results Laboratory Tests 12/12/24 13:00 12/13/24 04:11 Chemistry Test 12/12/24 13:00 12/13/24 04:11 Calcium Level 10.3 mg/dL (8.7-10.4) 9.3 mg/dL (8.7-10.4) Coagulation Test 12/12/24 19:31 D-Dimer, Quantitative 0.77 mg/L FEU (0.0-0.49) H Cardiac Markers Test 12/12/24 13:00 B-Type Natriuretic Peptide 5.42 pg/mL (0-100) Urinalysis Test 12/12/24 14:35 Urine Color Colorless (Yellow) Urine Clarity Clear (Clear) Urine pH 6.0 (5.0-9.0) Urine Specific [place] 1.002 (1.001-1.035) Urine Protein Negative (Negative) Urine Ketones Negative (Negative) Urine Blood Negative /uL (Negative) Urine Nitrite Negative (Negative) Urine Bilirubin Negative (Negative) Urine Urobilinogen Normal mg/dL (Negative) Urine Leukocyte Esterase Negative /uL (Negative) Urine RBC <1 /hpf (0 - 4) Urine Microscopic WBC /HPF (0-5) Urine Squamous Epithelial Cells Few /hpf (<5) Urine Bacteria None seen /hpf (None Seen) Urine Glucose Normal mg/dL (Normal) Labs and/or images reviewed: Labs reviewed by me, Image(s) reviewed by me Assessment/Plan Assessment/Plan Acute hypoxic respiratory failure due to asthma exacerbation Asthma exacerbation: Rocephin albuterol Atrovent, Solu-Medrol 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 Tran Plan discussed with: Patient Date of Service: December 13, 2024 Billing Provider: SAM DOE MD Common Visit Codes: [id number] INP/OBS CARE(HIGH) SAM DOE MD December 13, 2024 12:30
[2024-12-13] MEDS ORDERED: OXYCODONE W/ ACETAMINOPHEN 5/325MG TABLET PO PRN (12:45)
[2024-12-13] MEDS: OXYCODONE W/ ACETAMINOPHEN 5/325MG TABLET PO SCH (13:23)
[2024-12-13] MEDS: DOCUSATE SOD 100 MG CAP PO ONE (21:30)
[2024-12-14] VITALS (9 sets, daily range): BP systolic 100–136; BP diastolic 62–84; PULSE 61–89; RESP 15–18; TEMP 97.7–98.4; O2SAT 94–98
--- NOTE | 2024-12-14 08:17 | DVHPN2 ---
Reviewed: Care Plan, H&P, Labs, Medications, Previous Orders, Radiology Changes from previous H/P or p: No Changes Objective Vitals Vital Signs Date Time Temp Pulse Resp B/P (MAP) Pulse Ox O2 Delivery O2 Flow Rate FiO2 12/14/24 06:54 95 Room Air* 0 21 12/14/24 01:00 97.7 66 17 100/62 (75) 97.7 Intake/Output Intake and Output 12/14/24 07:00 Intake Total 130 ml Balance 130 ml Intake Oral 80 ml IV Total 50 ml # Voids 1 Medications Current Medications Medications Dose Ordered Sig/Jessica Route Start Time Stop Time Status Last Admin Dose Admin Albuterol 2.5 mg Q6HPRN PRN NEB 12/12/24 19:15 Ipratropium [place] 0.5 mg Q6HPRN PRN NEB 12/12/24 19:15 Methylprednisolone Sodium Succinate 40 mg BID IV 12/12/24 22:00 12/13/24 21:29 40 MG Ondansetron HCl 4 mg Q4HP PRN IV 12/12/24 19:15 Acetaminophen 650 mg Q6HP PRN PO 12/12/24 19:15 12/13/24 02:58 650 MG Nitroglycerin 0.4 mg Q5MINP PRN SL 12/12/24 19:15 Morphine Sulfate 2 mg Q30M PRN IV 12/12/24 19:15 Ceftriaxone Sodium 50 ml @ 100 mls/hr DAILY@09 IV 12/13/24 09:00 12/13/24 08:54 100 MLS/HR Oxycodone/ Acetaminophen 2 tab Q6HR PRN PO 12/13/24 12:45 Cancel Oxycodone/ Acetaminophen 2 tab Q6HR PO 12/13/24 13:08 12/14/24 05:57 2 TAB Laboratory Results Laboratory Tests 12/12/24 13:00 12/13/24 04:11 Urinalysis Test 12/12/24 14:35 Urine Color Colorless (Yellow) Urine Clarity Clear (Clear) Urine pH 6.0 (5.0-9.0) Urine Specific [place] 1.002 (1.001-1.035) Urine Protein Negative (Negative) Urine Ketones Negative (Negative) Urine Blood Negative /uL (Negative) Urine Nitrite Negative (Negative) Urine Bilirubin Negative (Negative) Urine Urobilinogen Normal mg/dL (Negative) Urine Leukocyte Esterase Negative /uL (Negative) Urine RBC <1 /hpf (0 - 4) Urine Microscopic WBC /HPF (0-5) Urine Squamous Epithelial Cells Few /hpf (<5) Urine Bacteria None seen /hpf (None Seen) Urine Glucose Normal mg/dL (Normal) Microbiology Microbiology Date/Time Source Procedure Growth Status 12/12/24 13:00 Blood Blood Culture - Preliminary NO GROWTH AFTER 24 HOURS OF INCUBATION. 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
[2024-12-15] VITALS (7 sets, daily range): BP systolic 100–126; BP diastolic 56–75; PULSE 55–83; RESP 16–19; TEMP 36.8; O2SAT 94–99
[2024-12-15] MEDS ORDERED: LEVO500T91 PO (09:19)
--- NOTE | 2024-12-15 09:20 | DVHPN2 ---
Reviewed: Care Plan, H&P, Labs, Medications, Previous Orders, Radiology Changes from previous H/P or p: No Changes Objective Vitals Vital Signs Date Time Temp Pulse Resp B/P (MAP) Pulse Ox O2 Delivery O2 Flow Rate FiO2 12/15/24 09:00 98.3 55 17 126/75 (92) 95 98.3 12/15/24 07:09 Room Air* 0 21 Intake/Output Intake and Output 12/15/24 07:00 Intake Total 1550 ml Output Total 1100 ml Balance 450 ml Intake Oral 1500 ml IV Total 50 ml Output Urine Total 1100 ml # Voids 2 Medications Current Medications Medications Dose Ordered Sig/Jessica Route Start Time Stop Time Status Last Admin Dose Admin Albuterol 2.5 mg Q6HPRN PRN NEB 12/12/24 19:15 Ipratropium [place] 0.5 mg Q6HPRN PRN NEB 12/12/24 19:15 Methylprednisolone Sodium Succinate 40 mg BID IV 12/12/24 22:00 12/14/24 21:51 40 MG Ondansetron HCl 4 mg Q4HP PRN IV 12/12/24 19:15 Acetaminophen 650 mg Q6HP PRN PO 12/12/24 19:15 12/13/24 02:58 650 MG Nitroglycerin 0.4 mg Q5MINP PRN SL 12/12/24 19:15 Morphine Sulfate 2 mg Q30M PRN IV 12/12/24 19:15 Ceftriaxone Sodium 50 ml @ 100 mls/hr DAILY@09 IV 12/13/24 09:00 12/14/24 08:28 100 MLS/HR Oxycodone/ Acetaminophen 2 tab Q6HR PRN PO 12/13/24 12:45 Cancel Oxycodone/ Acetaminophen 2 tab Q6HR PO 12/13/24 13:08 12/15/24 06:24 2 TAB Laboratory Results Laboratory Tests 12/12/24 13:00 12/13/24 04:11 Urinalysis Test 12/12/24 14:35 Urine Color Colorless (Yellow) Urine Clarity Clear (Clear) Urine pH 6.0 (5.0-9.0) Urine Specific [place] 1.002 (1.001-1.035) Urine Protein Negative (Negative) Urine Ketones Negative (Negative) Urine Blood Negative /uL (Negative) Urine Nitrite Negative (Negative) Urine Bilirubin Negative (Negative) Urine Urobilinogen Normal mg/dL (Negative) Urine Leukocyte Esterase Negative /uL (Negative) Urine RBC <1 /hpf (0 - 4) Urine Microscopic WBC /HPF (0-5) Urine Squamous Epithelial Cells Few /hpf (<5) Urine Bacteria None seen /hpf (None Seen) Urine Glucose Normal mg/dL (Normal) Microbiology Microbiology Date/Time Source Procedure Growth Status 12/12/24 13:00 Blood Blood Culture - Preliminary NO GROWTH AFTER 48 HOURS OF INCUBATION. 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
--- NOTE | 2024-12-15 09:23 | DVHDS2 ---
Discharge Summary Date of Admission Dec 12, 2024 at 19:13 Date of Discharge: December 15, 2024 Admitting Diagnosis Shortness of breath Wounds: None Labs/Diagnostic Data: Laboratory Results Test 12/13/24 08:26 12/13/24 04:11 12/12/24 19:31 12/12/24 17:21 Lactic Acid Level 2.1 mmol/L (0.4-2.0) Sodium Level 141 mmol/L (136-145) Potassium Level 4.4 mmol/L (3.5-5.1) Chloride Level 112 mmol/L (98-107) Carbon Dioxide Level 21 mmol/L (20-31) Anion Gap 8 (5-15) Blood Urea Nitrogen 7 mg/dL (9-23) Creatinine 0.69 mg/dL (0.550-1.02) Glomerular Filtration Rate Calc 110 mL/min (>90) BUN/Creatinine Ratio 10.1 (10.0-20.0) Serum Glucose 143 mg/dL (74-106) Calcium Level 9.3 mg/dL (8.7-10.4) D-Dimer, Quantitative 0.77 mg/L FEU (0.0-0.49) Influenza Type A Antigen Negative (Negative) Influenza Type B Antigen Negative (Negative) SARS-CoV-2 Antigen (Rapid) Negative (NEGATIVE) Test 12/12/24 14:35 12/12/24 14:19 12/12/24 13:00 Urine Color Colorless (Yellow) Urine Clarity Clear (Clear) Urine pH 6.0 (5.0-9.0) Urine Specific [place] 1.002 (1.001-1.035) Urine Protein Negative (Negative) Urine Ketones Negative (Negative) Urine Blood Negative /uL (Negative) Urine Nitrite Negative (Negative) Urine Bilirubin Negative (Negative) Urine Urobilinogen Normal mg/dL (Negative) Urine Leukocyte Esterase Negative /uL (Negative) Urine RBC <1 /hpf (0 - 4) Urine Microscopic WBC /HPF (0-5) Urine Squamous Epithelial Cells Few /hpf (<5) Urine Bacteria None seen /hpf (None Seen) Urine Glucose Normal mg/dL (Normal) Troponin I High Sensitivity < 3 ng/L (</=34) White Blood Count 13.7 10^3/uL (4.4-10.8) Red Blood Count 5.10 10^6/uL (4.0-5.20) Hemoglobin 14.0 g/dL (12.2-16.2) Hematocrit 42.5 % (36.0-46.0) Mean Corpuscular Volume 83.3 fL (80.0-100.0) Mean Corpuscular Hemoglobin 27.4 pg (28.0-32.0) Mean Corpuscular Hemoglobin Concent 32.8 g/dL (32.0-36.0) Red Cell Distribution Width 14.7 % (11.8-14.3) Platelet Count 374 10^3/uL (140-450) Mean Platelet Volume 7.4 fL (6.9-10.8) Neutrophils (%) (Auto) 47.8 % (37.0-80.0) Lymphocytes (%) (Auto) 43.1 % (10.0-50.0) Monocytes (%) (Auto) 7.1 % (0.0-12.0) Eosinophils (%) (Auto) 1.7 % (0.0-7.0) Basophils (%) (Auto) 0.3 % (0.0-2.0) Neutrophils # (Auto) 6.5 10 ^3/uL (1.6-8.6) Lymphocytes # (Auto) 5.9 10 ^3/uL (0.4-5.4) Monocytes # (Auto) 1.0 10 ^3/uL (0-1.3) Eosinophils # (Auto) 0.2 10 ^3/uL (0-0.8) Basophils # (Auto) 0 10 ^3/uL (0-0.2) Nucleated Red Blood Cells 0.0 % B-Type Natriuretic Peptide 5.42 pg/mL (0-100) Beta HCG, Quantitative 0.3 mIU/mL (1.5-4.2) Other Laboratory Tests 12/13/24 04:11 12/12/24 13:00 Brief Hx & Hospital Course: 44-year-old female with a history of asthma vocal cord dysfunction Koki's disease chronic back pain secondary to 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 Found to have asthma exacerbation treated with albuterol Atrovent med-nebs and Solu-Medrol mild community-acquired pneumonia treated with Rocephin at the time of discharge patient is afebrile on room air and wants to be discharged home. Discharged home on Levaquin. 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 Patient was counseled about treatment plan, medications, possible side effects, patientverbalized understanding. All questions were answered to the best of my ability. 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
== END 2024-12-15 12:15 | disposition home or self-care (01) | DRG 133 ==
LOC: EDBD 12:43 → EDUNIT# 12:43 → ER 12:43 → OVERFLOW 19:13 → TELE-EAST 19:16
PROVIDERS: ADMIT Family Medicine; ATTEND Family Medicine
DX: J96.01 Acute respiratory failure with hypoxia (principal); J45.901 Unspecified asthma with (acute) exacerbation; J44.9 Chronic obstructive pulmonary disease, unspecified; Z20.822 Contact with and (suspected) exposure to COVID-19; E87.6 Hypokalemia; M81.8 Other osteoporosis without current pathological fracture; E06.3 Autoimmune thyroiditis; G89.29 Other chronic pain; J38.3 Other diseases of vocal cords; M48.00 Spinal stenosis, site unspecified; T38.0X5A Adverse effect of glucocorticoids and synthetic analogues, initial encounter; Y92.89 Other specified places as the place of occurrence of the external cause; Z88.6 Allergy status to analgesic agent; Z79.51 Long term (current) use of inhaled steroids; Z79.899 Other long term (current) drug therapy; Z88.8 Allergy status to other drugs, medicaments and biological substances; Z90.49 Acquired absence of other specified parts of digestive tract; Z98.891 History of uterine scar from previous surgery; D72.829 Elevated white blood cell count, unspecified
CPT/HCPCS: 36415; 71045; 80048; 81001; 83605; 83880; 84484; 84702; 85025; 85379; 87040; 87426; 87804; 93005; 94640; 94644; 96361; 96365; 96366; 96375; 99291; G0378; J1100; J2405; J3480

== ENCOUNTER 2025-01-13 16:54 | Inpatient (IN) | payer MEDICAID, OTHER ==
[~2025-01-13] VITALS: Ht 170.2 cm; Wt 90.1 kg
[~2025-01-13 16:54] MED LIST changes: -FAMO40TA7 PO; +LEVO500T91 PO
[2025-01-13] MEDS: MIDAZOLAM DRIP 50 mg/50mL 50 ML IV ONE (17:00)
[2025-01-13] MEDS: ETOMIDATE (2MG/ML) 20ML VIAL IV ONE ×2 (17:00→17:10)
[2025-01-13] MEDS: SUCCINYLCHOLINE CHLORIDE 20 MG/ML 10ML VIAL IV ONE ×2 (17:00→17:10)
--- NOTE | 2025-01-13 17:06 | ED.PDOC ---
SOB-HPI HPI Comments 44y F who presents to the ED via EMS for chief complaint of shortness of breath. Per EMS, pt was at [facility] and started to get short of breath and EMS was called to the scene. Upon EMS arrival, family told EMS pt has history of vocal cord paralysis and has been hospitalized and intubated in the past. EMS notes pt in past would be given EPI and Benadryl to help relieve her symptoms but pt was given 0.3 EPi and 50 of benadryl, pt 0xygenation did not improve and pt was placed on CPAP and 02 sat ranging around 91% and brought to the ED. Pt in the ED, presents with CPAP and otherwise not able to answer any questions due to CPAP obstruction. EMS states pt was also given 2.5 albuterol and 0.5 atrovent with no change in oxygenation prior to ED arrival. Pt otherwise in the ED, denies any other symptoms at this time. 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 STITCHER Hx Family History Family History: Unknown Social History Smoker: Unknown Alcohol: Unknown Drugs: Unknown Lives In: Home Constitutional: denies: chills, diaphoresis, fatigue, fever, malaise, sweats, weakness, others EENTM: denies: blurred vision, double vision, ear bleeding, ear discharge, ear drainage, ear pain, ear ringing, eye pain, eye redness, hearing loss, mouth pain, mouth swelling, nasal discharge, nose bleeding, nose congestion, nose pain, photophobia, tearing, throat pain, throat swelling, voice changes, others Respiratory: reports: shortness of breath; denies: cough, hemoptysis, orthopnea, SOB at rest, SOB with excertion, stridor, wheezing, others Cardiovascular: denies: chest pain, dizzy spells, diaphoresis, Dyspnea on exertion, edema, irregular heart beat, left arm pain, lightheadedness, palpitations, PND, syncope, others Gastrointestinal: denies: abdomen distended, abdominal pain, blood streaked bowels, constipated, diarrhea, dysphagia, difficulty swallowing, hematemesis, melena, nausea, poor appetite, poor fluid intake, rectal bleeding, rectal pain, vomiting, others Genitourinary: denies: abnormal vagina bleeding, burning, dyspareunia, dysuria, flank pain, frequency, hematuria, incontinence, pain, , vagina discharge, urgency, others Neurological: denies: dizziness, fainting, headache, left sided numbness, left sided weakness, numbness, paresthesia, pre-existing deficit, right sided numbness, right sided weakness, seizure, speech problems, tingling, tremors, weakness, others Musculoskeletal: denies: back pain, gout, joint pain, joint swelling, muscle pain, muscle stiffness, neck pain, others Integumetry: denies: bruises, change in color, change in hair/nails, dryness, laceration, lesions, lumps, rash, wounds, others Allergic/Immunocompromised: denies: Difficulty Healing, Frequent Infections, Hives, Itching, others Hematologic/Lymphatic: denies: anemia, blood clots, easy bleeding, easy bruising, swollen glands, others Endocrine: denies: excessive hunger, excessive sweating, excessive thirst, excessive urination, flushing, intolerance to cold, intolerance to heat, unexp lained weight gain, unexplained weight loss, others Psychiatric: denies: anxiety, bipolar disorder, depression, hopeless, panic disorder, schizophrenia, sleepless, suicidal, others All Other Systems: Reviewed and Negative Physical Exam General Appearance: Severe Distress HEENT: Normal ENT Inspection, Pharynx Normal, TMs Normal Neck: Full Range of Motion, Non-Tender, Normal, Normal Inspection Respiratory: Accessory Muscle Use, Chest Non-Tender, Decreased Breath Sounds, Respiratory Distress Cardiovascular: No Edema, No JVD, No Murmur, No Gallop, Tachycardia Breast Exam: Deferred Gastrointestinal: No Organomegaly, Non Tender, No Pulsatile Mass, Normal Bowel Sounds, Soft Genitalia: Deferred Pelvic: Deferred Rectal: Deferred Extremities: No calf tenderness, Normal capillary refill, Normal inspection, Normal range of motion, Non-tender, No pedal edema Musculoskeletal : Apperance: Normal Neurologic: Alert, finance advisor II-XII nml as Tested, No Motor Deficits, Normal Affect, Normal Mood, No Sensory Deficits Cerebellar Function: Normal Reflexes: Normal Skin: Dry, Normal Color, Warm Lymphatic: No Adenopathy EKG EKG : Pulse Rate (adult): 126 [place]: Normal Cardiac Rhythm: ST Block: None ST: Nonsp Was a procedure done? Was a procedure done?: Yes Sedation Sedation?: No Intubation Indication: Respiratory Insufficiency, Airway Protection Prep: Preoxygenation Pretreated with: Sedation (Etomidate 20 mg IV push) Medicated with: Succinylcholine (80 mg) Intubation Approach: Orotracheal Intubation size: cm (8.0 endotracheal tube) Informed consent obtained: Yes Risks/benefits/alt described: Yes Differential Dx Differential Diagnosis: Bronchitis, Respiratory Distress Comments vocal cord obstruction, acute respiratory distress, X-Ray, Labs, Meds, VS Vital Signs Date Time Temp Pulse Resp B/P (MAP) Pulse Ox O2 Delivery O2 Flow Rate FiO2 01/13/25 18:20 126 01/13/25 18:05 122/89 01/13/25 18:05 122/89 01/13/25 18:00 128 21 91 Mechanical Ventilator+ 40 40 01/13/25 18:00 132/84 01/13/25 18:00 132/84 01/13/25 18:00 99.6 128 21 132/84 (100) 91 99.6 01/13/25 17:40 140/96 01/13/25 17:30 140/96 01/13/25 17:13 125/86 01/13/25 17:11 128 18 140/96 (111) 91 70 01/13/25 17:11 129 18 140/96 (111) 100 70 01/13/25 16:54 99.6 127 28 125/86 (99) 100 99.6 Lab Test 01/13/25 18:31 01/13/25 17:13 Range/Units Blood Gas Specimen Type Arterial Blood Gas Sample Site Right radial Blood Gas Patient Temperature 37.0 Arterial Blood Date Drawn [id number] Arterial Blood pH 7.427 7.350-7.450 Arterial Blood Partial Pressure CO2 31.6 L 32.0-45.0 mmHg Arterial Blood Partial Pressure O2 68.8 L 83.0-108.0 mmHg Arterial Blood HCO3 20.4 L 21.0-28.0 mmol/L Arterial Blood Oxygen Saturation 93.5 L 94.0-98.0 % Arterial Blood Base Excess -3.0 L -2.0-3.0 mmol/L Arterial Blood Oxyhemoglobin 92.3 L 94.0-98.0 % Arterial Blood Carboxyhemoglobin 0.7 0.5-1.5 % Arterial Blood Methemoglobin 0.6 0.0-1.5 % Giacomo Test Modified Blood Gas Total Hemoglobin 14.00 12.0-16.0 g/dL Blood Gas Set Respiration Rate 18.0 Blood Gas Modality Vent - ac FiO2 % 70.0 Blood Gas Tidal Volume 500.0 Blood Gas PEEP or CPAP 5.0 White Blood Count 15.0 H 4.4-10.8 10^3/uL Red Blood Count 4.99 4.0-5.20 10^6/uL Hemoglobin 13.7 12.2-16.2 g/dL Hematocrit 41.7 36.0-46.0 % Mean Corpuscular Volume 83.6 80.0-100.0 fL Mean Corpuscular Hemoglobin 27.4 L 28.0-32.0 pg Mean Corpuscular Hemoglobin Concent 32.8 32.0-36.0 g/dL Red Cell Distribution Width 15.1 H 11.8-14.3 % Platelet Count 394 140-450 10^3/uL Mean Platelet Volume 7.6 6.9-10.8 fL Neutrophils (%) (Auto) 46.4 37.0-80.0 % Lymphocytes (%) (Auto) 45.8 10.0-50.0 % Monocytes (%) (Auto) 6.5 0.0-12.0 % Eosinophils (%) (Auto) 0.9 0.0-7.0 % Basophils (%) (Auto) 0.4 0.0-2.0 % Neutrophils # (Auto) 6.9 1.6-8.6 10 ^3/uL Lymphocytes # (Auto) 6.8 H 0.4-5.4 10 ^3/uL Monocytes # (Auto) 1.0 0-1.3 10 ^3/uL Eosinophils # (Auto) 0.1 0-0.8 10 ^3/uL Basophils # (Auto) 0.1 0-0.2 10 ^3/uL Nucleated Red Blood Cells 0.2 % Sodium Level 140 136-145 mmol/L Potassium Level 3.1 L 3.5-5.1 mmol/L Chloride Level 109 H 98-107 mmol/L Carbon Dioxide Level 18 L 20-31 mmol/L Anion Gap 13 5-15 Blood Urea Nitrogen 10 9-23 mg/dL Creatinine 0.84 0.550-1.02 mg/dL Glomerular Filtration Rate Calc 88 >90 mL/min BUN/Creatinine Ratio 11.9 10.0-20.0 Serum Glucose 173 H 74-106 mg/dL Calcium Level 9.9 8.7-10.4 mg/dL B-Type Natriuretic Peptide 3.58 0-100 pg/mL Current Medications Medications (Trade) Dose Ordered Sig/Jessica Route Start Time Stop Time Status Last Admin Methylprednisolone Sodium Succinate (Solu Medrol) 125 mg ONCE ONCE IV 01/13/25 17:15 01/13/25 17:16 DC 01/13/25 17:07 Albuterol (Ventolin Medneb) 20 mg ONCE ONCE NEB 01/13/25 17:30 01/13/25 17:31 DC 01/13/25 17:53 Ipratropium [place] (Atrovent Medneb) 1 mg ONCE ONCE NEB 01/13/25 17:30 01/13/25 17:31 DC 01/13/25 17:53 Etomidate 20 mg ONCE ONCE IV 01/13/25 16:58 01/13/25 17:42 DC 01/13/25 17:10 Succinylcholine Chloride (Quelicin) 80 mg ONCE ONCE IV 01/13/25 16:58 01/13/25 17:42 DC 01/13/25 17:10 Propofol 100 ml @ 2.844 mls/ hr Q24H IV 01/13/25 17:45 01/13/25 17:40 Midazolam HCl 50 ml @ 1 mls/hr Q24H IV 01/13/25 17:45 01/13/25 17:13 Ondansetron HCl (Zofran) 4 mg ONCE ONCE IV 01/13/25 17:22 01/13/25 17:42 DC 01/13/25 17:25 IV Hep-Lock was established We feel that the patient needs to be intubated secondary to vocal cord dysfunction The patient also has a history of asthma and now feels her throat closing after we removed the CPAP The patient was given Solu-Medrol 125 mg IV push The patient was a continuous breathing treatment of albuterol and Atrovent After intubation, the patient was sedated with Versed but the patient continues to move around so was started on propofol and eventually is being started on fentanyl. After intubation, the patient has some vomiting and was given Zofran 4 mg IV push A BNP is within normal limits The CBC shows an elevated white blood cell count of 15 The rest of the CBC is within normal limits The chemistry panel shows hypokalemia at 3.1 The patient is being given potassium IV piggyback An ABG was done with an FiO2 of 70% At this time, the patient is being admitted to the ICU Images Reviewed?: Images reviewed and evaluated by me Time of 1ST Reevaluation: 17:35 Reevaluation 1ST: Unchanged Patient Education/Counseling: Diagnosis, Treatment, Prognosis Family Education/Counseling: No Family Present Departure 1 Departure Time of Disposition: 19:13 Impression: Primary Impression: Acute respiratory failure Qualified Codes: J96.00 - Acute respiratory failure, unspecified whether with hypoxia or hypercapnia Additional Impressions: Vocal cord dysfunction Acute allergic reaction Qualified Codes: T78.40XA - Allergy, unspecified, initial encounter Disposition: ADMITTED INPATIENT Admit to: ICU Condition: Critical Critical Care Note Critical Care Time?: Yes (1 hr-critical care time only) Stability Stability form required: Yes Unstable for transfer: ICU, CCU, PCU, ZAYNAB (Intensive VS monitoring), Requires medication (Requires Med for stabilization), May require CPR (possible rapid decline), ED Physician Assesment (Clinical assesment) Heart Score Heart Score: Heart Score Response (Comments) Value History N/A 0 EKG N/A 0 Age N/A 0 Risk Factors N/A 0 Troponin N/A 0 Total 0 I personally scribed for MELQUIADES MCKEON MD ([email or web address]) on 01/13/25 at 17:06. Electronically submitted by Fernando Lang ([email or web address]). MELQUIADES MCKEON MD Jan 13, 2025 17:06
[2025-01-13] MEDS: methylPREDNISolone SOD SUCC 125 MG/2 ML VL IV ONE (17:07)
[2025-01-13 17:11] VITALS: BP 140/96; PULSE 128; RESP 18; O2SAT 91
[2025-01-13] MEDS: MIDAZOLAM DRIP 50 mg/50mL 50 ML IV SCH (17:13)
[2025-01-13] MEDS: ALBUTEROL SULF 2.5 MG/0.5ML(0.5%) NEB SOLN ONE (17:21)
[2025-01-13 17:22] LABS: Basophils # (auto) 0.1 10 ^3/uL (0-0.2); Basophils % (auto) 0.4 % (0.0-2.0); Eosinophils # (auto) 0.1 10 ^3/uL (0-0.8); Eosinophils % (auto) 0.9 % (0.0-7.0); Hematocrit 41.7 % (36.0-46.0); Hemoglobin 13.7 g/dL (12.2-16.2); Lymphocytes # (auto) 6.8 10 ^3/uL (0.4-5.4); Lymphocytes % (auto) 45.8 % (10.0-50.0); Mean Corpuscular Hemoglobin 27.4 pg (28.0-32.0); Mean Corpuscular Hgb Conc. 32.8 g/dL (32.0-36.0); Mean Corpuscular Volume 83.6 fL (80.0-100.0); Monocytes % (auto) 6.5 % (0.0-12.0); Neutrophils # (auto) 6.9 10 ^3/uL (1.6-8.6); Neutrophils % (auto) 46.4 % (37.0-80.0); Nucleated Red Blood Cells % 0.2 %; Platelet Count (auto) 394 10^3/uL (140-450); Red Blood Cells 4.99 10^6/uL (4.0-5.20); Red Cell Distribution Width 15.1 % (11.8-14.3)
[2025-01-13] MEDS: ONDANSETRON HCL 4 MG/2 ML VIAL IV ONE (17:25)
[2025-01-13 17:31] LABS: Sodium 140 mmol/L (136-145)
[2025-01-13 17:32] LABS: Anion Gap 13 (5-15); Calcium 9.9 mg/dL (8.7-10.4)
[2025-01-13 17:34] LABS: Carbon Dioxide 18 mmol/L (20-31); Chloride 109 mmol/L (98-107); Potassium 3.1 mmol/L (3.5-5.1)
[2025-01-13 17:37] LABS: BUN/Creatinine Ratio 11.9 (10.0-20.0); Blood Urea Nitrogen 10 mg/dL (9-23)
[2025-01-13] MEDS: PROPOFOL 100 ML IV SCH (17:40)
[2025-01-13] MEDS: ONDANSETRON HCL 4 MG/2 ML VIAL ONE (17:42)
[2025-01-13] MEDS: PROPOFOL 100 ML IV ONE (17:42)
[2025-01-13 17:52] LABS: Glucose 173 mg/dL (74-106)
[2025-01-13] MEDS: ALBUTEROL SULF 2.5 MG/0.5ML(0.5%) NEB SOLN NEB ONE ×2 (17:53)
[2025-01-13] MEDS: IPRATROPIUM BROM 0.5 MG/2.5ML INH SOL NEB ONE (17:53)
[2025-01-13 18:00] VITALS: PULSE 128; RESP 21; O2SAT 91
--- NOTE | 2025-01-13 18:22 | ECG ---
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
[2025-01-13] MEDS: fentaNYL Drip 2500mCg/250mlNS 250 ML IV SCH (19:00)
[2025-01-13] MEDS: fentaNYL Drip 2500mCg/250mlNS 250 ML IV ONE (19:16)
--- NOTE | 2025-01-13 19:25 | DVH ---
INDICATION: cp TECHNIQUE: Frontal view of the chest. COMPARISON: None FINDINGS: Cardiomgealy with CHF. ET tube 2 cm from alonso, NG tube in stomach. . There is no evidence of ple ural disease. . The bony structures of the chest are intact without fracture. IMPRESSION: 1. As above
[2025-01-13 19:30] VITALS: PULSE 121; RESP 20; O2SAT 99
[2025-01-13 19:44] LABS: Urine Bacteria None Seen /hpf (None Seen)
[2025-01-13 19:45] VITALS: BP 108/76; PULSE 120; RESP 20; O2SAT 100
[2025-01-13 19:49] LABS: Urine Blood TRACE /uL (Negative); Urine Clarity Clear (Clear); Urine Color Light-Yellow (Yellow); Urine Mucus FEW (None Seen); Urine Protein, UAD 1+ (Negative); Urine Specific Gravity 1.024 (1.001-1.035); Urine Squamous Epithelial Cell FEW /hpf (<5); Urine Urobilinogen Normal (Negative); Urine WBC < 1 /HPF (0-5); Urine pH 5.5 (5.0-9.0)
[2025-01-13 19:55] VITALS: BP 108/76; PULSE 120; RESP 20; TEMP 99; O2SAT 100
[2025-01-13] MEDS: POTASSIUM CHL 20MEQ/100ML 100 ML IV ONE (20:07)
[2025-01-13] MEDS ORDERED: MORPHINE SULFATE INJ 2 MG/ml SYRG IV PRN (21:45)
[2025-01-13] MEDS ORDERED: NITROGLYCERIN 0.4 MG SL TAB SL PRN (21:45)
[2025-01-13] MEDS ORDERED: VANCOMYCIN PER PHARMACY 0 MG IV SCH (22:00)
[2025-01-13 22:18] VITALS: BP 113/76; PULSE 105; RESP 19; O2SAT 100
[2025-01-13] MEDS: CEFEPIME 2GM/50ML NS 50 ML IV ONE (22:29)
--- NOTE | 2025-01-13 22:40 | DVHHPRES ---
History of Present Illness Resident Creating Document: KARLEY QUICK RESIDENT Reason for Visit: acute repiratory failure due to vocal cord paralysis History of Present Illness 44 year old female with past medical history of Anil disease ( not on treatment as patient is allergic to levothyroxine) , spina bifida, diverticulosis, asthma,sciatica, recurrent infections and 4 previous intubations due to a vocal cord paralysis episodes that caused acute respiratory failure , patient was brought to the ER by paramedics after a new episode of vocal cord paralysis with acute respiratory failure that started at 4 pm and progressively got worse in the next 10 minutes , even after epi and Benadryl the patient continued desaturating , on the ambulance the patient was given albuterol and Atrovent , and in the ER the patient was placed on CPAP, oxygen saturation levels continue in the lowe side for which the patinent was placed under mechani zackery ventilation on FIO2 70%. Chest X ray showed lef sided vascular congestion , but BNP was within normal limits , blood work and vital signs values met criteria for sepsis for which the patient was started on empiric antibiotic with cefepime and vancomycin IV , lactic acid level and d dimer were ordered. We will follow up on results. Cardiovascular: CHF Pulmonary: Asthma, Previously Intubated, Pneumonia Musculoskeletal: Osteoarthritis Endocrine: Diabetes Family History: DM, Hypertension Smoke: No ALCOHOL: none Drugs: None Lives: with Family Domestic Violence: Neg Review of Systems Review of Systems unable to obtain , patient is intubated Constitutional: No: Fever, Chills, Sweats, Weakness, Malaise, Other Eyes: No: Pain, Vision change, Conjunctivae inflammation, Eyelid inflammation, Other, Redness ENT: No: Ear pain, Ear discharge, Nose pain, Nose discharge, Nose congestion, Mouth pain, Mouth swelling, Throat pain, Throat swelling, Other Respiratory: No: Cough, Dry, Shortness of breath, SOB with excertion, Wheezing, Hemoptysis, Pleuritic Pain, Sputum, Wheezing, Other Cardiovascular: No: Chest Pain, Palpitations, Orthopnea, Paroxysmal Noc. Dyspnea, Edema, Lt Headedness, Other Gastrointestinal: No: Nausea, Vomiting, Abdominal Pain, Diarrhea, Constipation, Melena, Hematochezia, Other Genitourinary: No Dysuria, No Frequency, No Incontinence, No Hematuria, No Retention, No Other Musculoskeletal: No: other, neck pain, shoulder pain, arm pain, back pain, hand pain, leg pain, foot pain Skin: No: Rash, Lesions, Jaundice, Bruising, Other Neurological: No: Weakness, Numbness, Incoordination, Change in speech, Confusion, Seizures, Other Allergies: Coded Allergies: Ibuprofen (Verified Allergy, Unknown, 04/25/23) Levothyroxine (Verified Allergy, Unknown, 04/25/23) Medications Current Medications Medications Dose Ordered Sig/Jessica Route Start Time Stop Time Status Last Admin Dose Admin Propofol 100 ml @ 2.844 mls/ hr Q24H IV 01/13/25 17:45 01/13/25 17:40 2.844 MLS/HR Midazolam HCl 50 ml @ 1 mls/hr Q24H IV 01/13/25 17:45 01/13/25 22:14 15 MLS/HR Fentanyl Citrate 250 ml @ 2.5 mls/hr Q24H IV 01/13/25 18:45 01/13/25 19:00 2.5 MLS/HR Enoxaparin Sodium 40 mg DAILY SC 01/14/25 06:00 Nitroglycerin 0.4 mg Q5MINP PRN SL 01/13/25 21:45 Morphine Sulfate 2 mg Q30M PRN IV 01/13/25 21:45 Vancomycin HCl 0 ml @ 0 mls/hr UD IV 01/13/25 22:00 UNV Cefepime HCl 50 ml @ 12.5 mls/hr Q24H IV 01/14/25 22:00 Exam Vital Signs Vital Signs Date Time Temp Pulse Resp B/P (MAP) Pulse Ox O2 Delivery O2 Flow Rate FiO2 01/13/25 22:14 113/76 01/13/25 21:45 103 19 100 01/13/25 19:55 99.0 70 99.0 01/13/25 19:30 Mechanical Ventilator+ General Appearance: Other (patient is intubated) HEENT: Other (goitier due to anil disease) Respiratory: Other (left sided crackles) Cardiovascular: Regular rate, Normal S1, Normal S2 Abdominal: Other (decrease bowel sounds) Extremities: No clubbing, No cyanosis, No edema, Normal pulses Skin: No rashes Neuro: Other (pupils no reactive , 2 mm) Labs/Xrays Labs Test 01/13/25 18:40 01/13/25 18:31 01/13/25 17:13 Range/Units Urine Color Light-yellow Yellow Urine Clarity Clear Clear Urine pH 5.5 5.0-9.0 Urine Specific [place] 1.024 1.001-1.035 Urine Protein 1+ H Negative Urine Ketones 1+ H Negative Urine Blood Trace H Negative /uL Urine Nitrite Negative Negative Urine Bilirubin Negative Negative Urine Urobilinogen Normal Negative mg/dL Urine Leukocyte Esterase Negative Negative /uL Urine RBC 1 0 - 4 /hpf Urine Microscopic WBC < 1 0-5 /HPF Urine Squamous Epithelial Cells Few <5 /hpf Urine Bacteria None seen None Seen /hpf Urine Mucus Few None Seen Urine Glucose 3+ H Normal mg/dL Blood Gas Specimen Type Arterial Blood Gas Sample Site Right radial Blood Gas Patient Temperature 37.0 Arterial Blood Date Drawn [id number] Arterial Blood pH 7.427 7.350-7.450 Arterial Blood Partial Pressure CO2 31.6 L 32.0-45.0 mmHg Arterial Blood Partial Pressure O2 68.8 L 83.0-108.0 mmHg Arterial Blood HCO3 20.4 L 21.0-28.0 mmol/L Arterial Blood Oxygen Saturation 93.5 L 94.0-98.0 % Arterial Blood Base Excess -3.0 L -2.0-3.0 mmol/L Arterial Blood Oxyhemoglobin 92.3 L 94.0-98.0 % Arterial Blood Carboxyhemoglobin 0.7 0.5-1.5 % Arterial Blood Methemoglobin 0.6 0.0-1.5 % Giacomo Test Modified Blood Gas Total Hemoglobin 14.00 12.0-16.0 g/dL Blood Gas Set Respiration Rate 18.0 Blood Gas Modality Vent - ac FiO2 % 70.0 Blood Gas Tidal Volume 500.0 Blood Gas PEEP or CPAP 5.0 White Blood Count 15.0 H 4.4-10.8 10^3/uL Red Blood Count 4.99 4.0-5.20 10^6/uL Hemoglobin 13.7 12.2-16.2 g/dL Hematocrit 41.7 36.0-46.0 % Mean Corpuscular Volume 83.6 80.0-100.0 fL Mean Corpuscular Hemoglobin 27.4 L 28.0-32.0 pg Mean Corpuscular Hemoglobin Concent 32.8 32.0-36.0 g/dL Red Cell Distribution Width 15.1 H 11.8-14.3 % Platelet Count 394 140-450 10^3/uL Mean Platelet Volume 7.6 6.9-10.8 fL Neutrophils (%) (Auto) 46.4 37.0-80.0 % Lymphocytes (%) (Auto) 45.8 10.0-50.0 % Monocytes (%) (Auto) 6.5 0.0-12.0 % Eosinophils (%) (Auto) 0.9 0.0-7.0 % Basophils (%) (Auto) 0.4 0.0-2.0 % Neutrophils # (Auto) 6.9 1.6-8.6 10 ^3/uL Lymphocytes # (Auto) 6.8 H 0.4-5.4 10 ^3/uL Monocytes # (Auto) 1.0 0-1.3 10 ^3/uL Eosinophils # (Auto) 0.1 0-0.8 10 ^3/uL Basophils # (Auto) 0.1 0-0.2 10 ^3/uL Nucleated Red Blood Cells 0.2 % Sodium Level 140 136-145 mmol/L Potassium Level 3.1 L 3.5-5.1 mmol/L Chloride Level 109 H 98-107 mmol/L Carbon Dioxide Level 18 L 20-31 mmol/L Anion Gap 13 5-15 Blood Urea Nitrogen 10 9-23 mg/dL Creatinine 0.84 0.550-1.02 mg/dL Glomerular Filtration Rate Calc 88 >90 mL/min BUN/Creatinine Ratio 11.9 10.0-20.0 Serum Glucose 173 H 74-106 mg/dL Calcium Level 9.9 8.7-10.4 mg/dL B-Type Natriuretic Peptide 3.58 0-100 pg/mL Assessment/Plan Assessment/Plan Assessment: acute rehypoxic respiratory failure due to vocal cord paralysis s/p mechanical ventilation Sepsis likely due to community acquired pneumonia hyperglycemia due to uncontrolled type 2 diabetes hypokalemia anil disease spina bifida history od asthma diverticulosis Plan: Admit to ICU Currently under mechanical ventilation on sedatives, not on pressors IV antibiotics , vancomycin and cefepime IV fluids potassium replacement IV TSH free T4 A1C DDimer blood cultures Case discussed with code status: Full code critical care time 43 mins Plan discussed with: Son My Orders Orders - KARLEY QUICK RESIDENT Procedure Category Date Status Time Admit ADMIT 01/13/25 Transmitted 21:39 Allergies TARAN 01/13/25 In Process 21:39 Code Status CODE 01/13/25 Transmitted 21:39 Complete Blood Count LAB 01/14/25 Verified 04:00 Comprehensive LAB 01/14/25 Verified Metabolic Panel 04:00 Npo (Nothing By DIET 01/14/25 Transmitted Mouth) Diet Breakfast Condition: Unstable TARAN 01/13/25 In Process 21:39 Enoxaparin Sodium PHA 01/14/25 In Process (Lovenox) 06:00 Nitroglycerin PHA 01/13/25 In Process Sublingual (Ntrostat 21:45 Morphine Sulfate PHA 01/13/25 In Process Injection 21:45 Oxygen By Nasal RT 01/13/25 Transmitted Cannula 21:39 Stat Ekg For Chest ATRAN 01/13/25 In Process Pain 21:39 Notify Of Changes [facility] 01/13/25 In Process From Base 21:39 Catalogue Maker For [facility] 01/13/25 In Process 24 Hours 21:39 Emergency Dysrhythmia [facility] 01/13/25 In Process Protocol 21:39 Rhythm Strips Once [facility] 01/13/25 In Process Every Shift 21:39 Cefepime 2gm/50ml Ns PHA 01/13/25 In Process (Maxipime 2gm/50ml) 22:00 Vancomycin Per PHA 01/13/25 Logged Pharmacy 22:00 Blood Culture BENJA 01/13/25 Logged 21:55 Thyroid Stimulating LAB 01/13/25 Logged Hormone 21:55 Free T4 (Free LAB 01/13/25 Logged Thyroxine) 21:55 Drug Screen LAB 01/13/25 Logged 21:55 Prothrombin Time W/ LAB 01/13/25 Logged INR 21:55 Covid19 Antigen Manuela LAB 01/13/25 Logged Rapid Influenza A&B LAB 01/13/25 Logged 21:55 Beta Hcg, Quantitative LAB 01/13/25 Logged 21:55 D-Dimer LAB 01/13/25 Logged 21:55 Cefepime 2gm/50ml Ns PHA 01/14/25 In Process (Maxipime 2gm/50ml) 22:00 Urine LAB 01/13/25 Logged Protein/Creatinine Hemoglobin A1c LAB 01/13/25 Logged 22:10 Date of Service: Jan 13, 2025 Billing Provider: MARY MEJIA MD Common Visit Codes: [id number] CARE 30-74 MIN KARLEY QUICK RESIDENT Jan 13, 2025 22:40 MARY MJEIA MD Jan 14, 2025 21:44
[2025-01-13] MEDS ORDERED: VANCOMYCIN 1GM/250ML KIT 250 ML IV SCH ×2 (23:00→23:45)
[2025-01-13 23:13] LABS: COVID19 ANTIGEN SOFIA FIA NEGATIVE (NEGATIVE); Rapid Influenza A Negative (Negative); Rapid Influenza B Negative (Negative)
[2025-01-13 23:16] LABS: INR 0.99 (0.9-1.15); Prothrombin Time 10.5 sec (9.3-11.8)
[2025-01-13 23:26] LABS: Beta HCG, Quantitative 1.2 mIU/mL (1.5-4.2)
[2025-01-13 23:27] LABS: Lactic Acid w/Reflex 3.1 mmol/L (0.4-2.0)
[2025-01-13 23:28] LABS: Thyroid Stimulating Hormone 0.73 uIU/mL (0.55-4.78)
[2025-01-14] VITALS (100 sets, daily range): BP systolic 94–131; BP diastolic 59–97; PULSE 70–102; RESP 16–34; TEMP 97–99; O2SAT 95–100
[2025-01-14] MEDS: IOHEXOL 350 MG/ML 100ML IJ ONE (00:05)
[2025-01-14 00:14] LABS: Protein, Urine 9.7 mg/dL (1-14)
[2025-01-14 00:17] LABS: Creatinine, Urine 148.12 mg/dL (30.0-125.0); Urine Protein/Creatinine Ratio 0.07
[2025-01-14 00:29] LABS: Amphetamine Screen, Urine Neg (NEGATIVE); Barbiturate Scree,Urine Neg (NEGATIVE); Benzodiazephine Screen, Urine Pos (NEGATIVE); Cannabinoid Screen, Urine Neg (NEGATIVE); Cocaine Screen, Urine Neg (NEGATIVE); Opiate Scree,Urine Neg (NEGATIVE); Phencyclidine Screen, Urine Neg (NEGATIVE)
--- NOTE | 2025-01-14 01:09 | DVH ---
CTA Chest with intravenous contrast INDICATION: ro pe COMPARISON: None TECHNIQUE: Multidetector spiral CTA of the chest was performed of the chest with intravenous contrast . PULMONARY ANGIOGRAPHY PROTOCOL was utilized using a bolus-tracking technique centered on the main p ulmonary artery. Axial, coronal and sagittal multiplanar and MIP reformats were performed. Radiation Dose : 1. Chest: CTDI volume is 5.92 mGy. Dose-length product is 945.91 mGy*cm The dose indicators for CT are the volume Computed Tomography (CT) Dose Index (CTDIvol) and the Dose Length Product (DLP), and are measured in units of mGy and mGy-cm, respectively. These indicators are not patient dose, but values generated from the CT scanner acquisition factors. The report includes radiation exposure data for exposures received during this examination. Findings: Tip of ETT is approximately 1 cm above the alonso. NG tube noted in distal stomach. Pulmonary artery: No evidence of pulmonary embolism. Lower neck: Unremarkable. Lungs: Subsegmental atelectasis in bilateral lower lobes. Pleura: No pleural effusion or pneumothorax. Heart/Vascular Structures: Mild cardiomegaly. No pericardial effusion. Normal thoracic aorta. Mediastinum / Lymph Nodes: No adenopathy Musculoskeletal: No acute osseous abnormality. Soft tissues: Unremarkable. IMPRESSION: No evidence of pulmonary embolism. Subsegmental atelectasis in bilateral lower lobes.
[2025-01-14] MEDS: VANCOMYCIN 1GM/200ML PM 200 ML IV SCH (01:37)
[2025-01-14] MEDS ORDERED: DEXTROSE (50%) 50ML SYRG IV PRN (02:45)
[2025-01-14 04:11] LABS: Basophils # (auto) 0 10 ^3/uL (0-0.2); Basophils % (auto) 0.1 % (0.0-2.0); Eosinophils # (auto) 0 10 ^3/uL (0-0.8); Hematocrit 37.4 % (36.0-46.0); Hemoglobin 12.6 g/dL (12.2-16.2); Lymphocytes # (auto) 0.8 10 ^3/uL (0.4-5.4); Lymphocytes % (auto) 12.8 % (10.0-50.0); Mean Corpuscular Hemoglobin 27.7 pg (28.0-32.0); Mean Corpuscular Hgb Conc. 33.6 g/dL (32.0-36.0); Mean Corpuscular Volume 82.3 fL (80.0-100.0); Monocytes # (auto) 0.1 10 ^3/uL (0-1.3); Monocytes % (auto) 1.3 % (0.0-12.0); Neutrophils # (auto) 5.5 10 ^3/uL (1.6-8.6); Neutrophils % (auto) 85.8 % (37.0-80.0); Platelet Count (auto) 278 10^3/uL (140-450); Red Blood Cells 4.55 10^6/uL (4.0-5.20); Red Cell Distribution Width 14.9 % (11.8-14.3); White Blood Cell 6.5 10^3/uL (4.4-10.8)
[2025-01-14 04:27] LABS: Alanine Aminotransferase 14 U/L (7-40); Albumin 4.4 g/dL (3.2-4.8); Alkaline Phosphatase 94 U/L (46-116); Anion Gap 12 (5-15); Aspartate Aminotransferase 15 U/L (13-40); BUN/Creatinine Ratio 11.4 (10.0-20.0); Blood Urea Nitrogen 9 mg/dL (9-23); Calcium 9.1 mg/dL (8.7-10.4); Carbon Dioxide 20 mmol/L (20-31); Chloride 106 mmol/L (98-107); Potassium 4.3 mmol/L (3.5-5.1); Sodium 138 mmol/L (136-145); Total Protein 6.5 g/dL (5.7-8.2)
[2025-01-14 05:01] LABS: Bilirubin, Total 0.2 mg/dL (0.2-1.0); Glucose 169 mg/dL (74-106)
[2025-01-14] MEDS: ENOXAPARIN SOD 40 MG/0.4 ML SYRINGE SC SCH (05:55)
[2025-01-14] MEDS: InsuLIN REG 1unit/0.01ml Soln (100units/ml) SC SCH ×2 (06:56→21:22)
[2025-01-14] MEDS: ACCU-CHEK COMFORT CURVE STRIP VI SCH (06:57)
[2025-01-14] MEDS: VANCOMYCIN 750mg/100mL D5W or NS KIT IV SCH (13:58)
--- NOTE | 2025-01-14 15:11 | DVHPN2 ---
Progress Note Date Seen: Jan 14, 2025 Medical Necessity Reason Pt with a Central, PICC or Fol: Yes The following are medically ne: Central Line, Arellano Catheter Reason for arellano catheter: Strict I&O Subjective Patient reports: No new complaints Review of Systems: HEENT:Normal, CVS:Normal, RESPIRATORY:Normal, GI:Normal, :Normal, MSK:Normal, NEURO:Normal Objective vital signs Vital Sign Date Time Temp Pulse Resp B/P (MAP) Pulse Ox O2 Delivery O2 Flow Rate FiO2 01/14/25 14:47 98.2 91 18 118/75 (89) 99 208.8 01/14/25 14:00 30 01/14/25 14:00 Mechanical Ventilator+ Total Intake and Output 01/13/25 01/13/25 01/14/25 14:59 22:59 06:59 Intake Total 368.592 ml 396.704 ml Output Total 800 ml Balance 368.592 ml -403.296 ml medications Current Medications Medications Dose Ordered Sig/Jessica Route Start Time Stop Time Status Last Admin Dose Admin Propofol 100 ml @ 2.844 mls/ hr Q24H IV 01/13/25 17:45 01/14/25 13:11 19.908 MLS/HR Midazolam HCl 50 ml @ 1 mls/hr Q24H IV 01/13/25 17:45 01/14/25 10:04 3 MLS/HR Fentanyl Citrate 250 ml @ 2.5 mls/hr Q24H IV 01/13/25 18:45 01/13/25 19:00 2.5 MLS/HR Enoxaparin Sodium 40 mg DAILY SC 01/14/25 06:00 01/14/25 10:00 40 MG Nitroglycerin 0.4 mg Q5MINP PRN SL 01/13/25 21:45 Morphine Sulfate 2 mg Q30M PRN IV 01/13/25 21:45 Vancomycin HCl 0 ml @ 0 mls/hr UD IV 01/13/25 22:00 Cefepime HCl 50 ml @ 12.5 mls/hr Q24H IV 01/14/25 22:00 Diagnostic Test (Pha) 1 strip ACHS 01/14/25 07:00 01/14/25 11:12 1 STRIP Insulin Human Regular HS SC 01/14/25 22:00 Insulin Human Regular AC SC 01/14/25 07:00 Dextrose 50 ml UD PRN IV 01/14/25 02:45 Vancomycin HCl 100 ml @ 100 mls/hr Q12H IV 01/14/25 14:00 01/14/25 13:58 100 MLS/HR Examination: GENERAL:Normal, HEENT:Normal, NECK:Normal, LUNGS:Normal, LUNGS:Abnormal (intubated), CVS:Normal, ABDOMEN:Normal, MSK:Normal, SKIN:Normal, NEURO:Normal, :Normal laboratory and microbiology Laboratory Tests 01/14/25 03:30 Test 01/14/25 03:30 Range/Units Serum Glucose 169 H 74-106 mg/dL Microbiology Date/Time Source Procedure Growth Status 01/13/25 17:40 Sputum Gram Stain - Final Resulted 01/13/25 17:40 Sputum Respiratory Culture Pending Resulted Problem List/Assessment/Plan Problem List/Assessment/Plan #1 acute resp failure: cont acv #2 asthma with exacerbation: cont meds, steroids #3 ?pneumonia/sepsis: iv antibiotics #4 vocal cord dysfunction #5 Hashimotos #6 obesity #7 anxiety Plan discussed with: Other (rn) My Orders My Orders Orders - DEANNE SIMMONS MD Procedure Category Date Status Time Abg W/ Co-Ox RT 01/14/25 Logged 06:00 Critical Care Time (mins): 41 (critical care time excluding procedures was 41 mins) Date of Service: Jan 14, 2025 Billing Provider: DEANNE SIMMONS MD Common Visit Codes: [id number] CARE 30-74 MIN DEANNE SIMMONS MD Jan 14, 2025 15:11
[2025-01-14] MEDS: DEXMEDETOMIDINE HCL IN D5W 100 ML IV SCH (15:15)
[2025-01-14] MEDS: methylPREDNISolone SOD SUCC 125 MG/2 ML VL IV ONE (15:45)
[2025-01-14] MEDS: PANTOPRAZOLE 40 MG/10 ML VIAL INJ IV ONE (15:45)
[2025-01-14] MEDS: MONTELUKAST SODIUM 10 MG TAB PO ONE (15:46)
[2025-01-14] MEDS: ALBUTEROL SULF 2.5 MG/0.5ML(0.5%) NEB SOLN NEB SCH (18:15)
[2025-01-14] MEDS: IPRATROPIUM BROM 0.5 MG/2.5ML INH SOL NEB SCH (18:16)
[2025-01-14] MEDS: methylPREDNISolone SOD SUCC 40 MG/ML VL IV SCH (22:17)
[2025-01-14] MEDS: CEFEPIME 2GM/50ML NS 50 ML IV SCH (22:17)
[2025-01-15] VITALS (61 sets, daily range): BP systolic 15–179; BP diastolic 45–97; PULSE 70–111; RESP 12–29; TEMP 98.1–99.7; O2SAT 93–100
[2025-01-15 04:13] LABS: Basophils # (auto) 0 10 ^3/uL (0-0.2); Basophils % (auto) 0.1 % (0.0-2.0); Eosinophils # (auto) 0 10 ^3/uL (0-0.8); Hematocrit 35.7 % (36.0-46.0); Lymphocytes # (auto) 0.6 10 ^3/uL (0.4-5.4); Lymphocytes % (auto) 7.4 % (10.0-50.0); Mean Corpuscular Hemoglobin 27.5 pg (28.0-32.0); Mean Corpuscular Hgb Conc. 33.6 g/dL (32.0-36.0); Monocytes # (auto) 0.1 10 ^3/uL (0-1.3); Monocytes % (auto) 1.5 % (0.0-12.0); Neutrophils # (auto) 7.8 10 ^3/uL (1.6-8.6); Platelet Count (auto) 263 10^3/uL (140-450); Red Blood Cells 4.35 10^6/uL (4.0-5.20); Red Cell Distribution Width 15.1 % (11.8-14.3); White Blood Cell 8.6 10^3/uL (4.4-10.8)
[2025-01-15 04:17] LABS: Alanine Aminotransferase 13 U/L (7-40); Albumin 4.2 g/dL (3.2-4.8); Alkaline Phosphatase 83 U/L (46-116); Anion Gap 11 (5-15); Aspartate Aminotransferase 17 U/L (13-40); BUN/Creatinine Ratio 15.1 (10.0-20.0); Blood Urea Nitrogen 11 mg/dL (9-23); Carbon Dioxide 22 mmol/L (20-31); Potassium 3.9 mmol/L (3.5-5.1); Sodium 140 mmol/L (136-145); Total Protein 6.2 g/dL (5.7-8.2)
[2025-01-15 04:23] LABS: Lactic Acid w/Reflex 2.6 mmol/L (0.4-2.0)
[2025-01-15 04:25] LABS: Bilirubin, Total < 0.2 mg/dL (0.2-1.0); Calcium 8.5 mg/dL (8.7-10.4); Chloride 107 mmol/L (98-107); Glucose 166 mg/dL (74-106)
--- NOTE | 2025-01-15 05:22 | DVH ---
EXAM: XR Chest, 1 View CLINICAL INDICATION: RESP FAILURE TECHNIQUE: Frontal view of the chest. COMPARISON: XY CHEST PORTABLE on DOS: 01/14/25, XY CHEST PORTABLE on DOS: 12/12/24, XY CHEST PORTABLE on DOS: 08/02/24, XY CHEST PORTABLE on DOS: 03/26/24, XY CHEST XRAY 1 VIEW on DOS: 01/10/24 FINDINGS: LUNGS AND PLEURAL SPACES: See below. HEART: Cardiomegaly with mild congestion. MEDIASTINUM: Unremarkable. Normal mediastinal contour. BONES/JOINTS: Unremarkable. No acute fracture. TUBES, LINES AND DEVICES: The endotracheal tube (ETT) is in satisfactory position. Enteric tube ti p in the stomach. OTHER FINDINGS: . . . . . IMPRESSION: Cardiomegaly with mild congestion.
[2025-01-15] MEDS: PANTOPRAZOLE 40 MG/10 ML VIAL INJ IV SCH (08:55)
--- NOTE | 2025-01-15 09:21 | DVH ---
INDICATION: Tube Placement TECHNIQUE: Frontal view of the chest. COMPARISON: XY CHEST PORTABLE on DOS: 12/12/24, XY CHEST PORTABLE on DOS: 08/02/24, XY CHEST PORTABLE on DOS: 03/26/24, XY CHEST XRAY 1 VIEW on DOS: 01/10/24, XY CHEST XRAY 1 VIEW on DOS: 01/09/24 FINDINGS: NG tube in stomach . The heart and mediastinal contours are grossly unremarkable. There is no evide nce of pleural disease. The lungs are clear. The bony structures of the chest are intact without f racture. IMPRESSION: 1. No evidence of acute disease.
--- NOTE | 2025-01-15 12:53 | MEDREC ---
[facility] ASP Intervention Section I [facility] ASP Intervention: Dose optimization(PK/PD) (PLEASE CONSIDER RECOMMENDED DOSE FOR CEFEPIME IN PNA / SEPSIS: 2 G IV Q8H) HELIO HWANG PHARMACIST Jan 15, 2025 12:53
--- NOTE | 2025-01-15 13:15 | DVHPN2 ---
Progress Note Date Seen: Jan 15, 2025 Medical Necessity Reason Pt with a Central, PICC or Fol: Yes The following are medically ne: Central Line, Arellano Catheter Reason for arellano catheter: Strict I&O Subjective Patient reports: No new complaints Review of Systems: HEENT:Normal, CVS:Normal, RESPIRATORY:Normal, GI:Normal, :Normal, MSK:Normal, NEURO:Normal Objective vital signs Vital Sign Date Time Temp Pulse Resp B/P (MAP) Pulse Ox O2 Delivery O2 Flow Rate FiO2 01/15/25 11:33 75 18 99 01/15/25 11:26 Cool Aerosol 8 30 30 01/15/25 08:07 15 (57) 01/15/25 06:30 99.0 210.2 Total Intake and Output 01/14/25 01/14/25 01/15/25 15:00 23:00 07:00 Intake Total 290.792 ml 299.264 ml 266.901 ml Output Total 300 ml 300 ml Balance 290.792 ml -0.736 ml -33.099 ml medications Current Medications Medications Dose Ordered Sig/Jessica Route Start Time Stop Time Status Last Admin Dose Admin Propofol 100 ml @ 2.844 mls/ hr Q24H IV 01/13/25 17:45 01/15/25 00:40 17.064 MLS/HR Midazolam HCl 50 ml @ 1 mls/hr Q24H IV 01/13/25 17:45 01/14/25 20:19 5 MLS/HR Fentanyl Citrate 250 ml @ 2.5 mls/hr Q24H IV 01/13/25 18:45 01/14/25 18:26 7.5 MLS/HR Enoxaparin Sodium 40 mg DAILY SC 01/14/25 06:00 01/15/25 08:56 40 MG Nitroglycerin 0.4 mg Q5MINP PRN SL 01/13/25 21:45 Morphine Sulfate 2 mg Q30M PRN IV 01/13/25 21:45 Cefepime HCl 50 ml @ 12.5 mls/hr Q24H IV 01/14/25 22:00 01/14/25 22:17 12.5 MLS/HR Diagnostic Test (Pha) 1 strip ACHS 01/14/25 07:00 01/15/25 11:30 1 STRIP Insulin Human Regular HS SC 01/14/25 22:00 01/14/25 21:22 2 UNITS Insulin Human Regular AC SC 01/14/25 07:00 01/15/25 12:11 2 UNITS Dextrose 50 ml UD PRN IV 01/14/25 02:45 Methylprednisolone Sodium Succinate 40 mg Q8HR IV 01/14/25 22:00 01/15/25 05:09 40 MG Pantoprazole Sodium 40 mg DAILY IV 01/15/25 10:00 01/15/25 08:55 40 MG Albuterol 2.5 mg Q6HR NEB 01/14/25 18:00 01/15/25 11:25 2.5 MG Ipratropium [place] 0.5 mg Q6HR NEB 01/14/25 18:00 01/15/25 11:26 0.5 MG Montelukast Sodium 10 mg HS PO 01/15/25 22:00 Examination: GENERAL:Normal, HEENT:Normal, NECK:Normal, LUNGS:Normal, LUNGS:Abnormal (INTUBATED, EXTUBATED), CVS:Normal, ABDOMEN:Normal, MSK:Normal, SKIN:Normal, NEURO:Normal, :Normal laboratory and microbiology Laboratory Tests 01/15/25 03:10 Test 01/15/25 03:10 Range/Units Serum Glucose 166 H 74-106 mg/dL Microbiology Date/Time Source Procedure Growth Status 01/13/25 22:40 Blood Blood Culture - Preliminary NO GROWTH AFTER 24 HOURS OF INCUBATION. Resulted 01/13/25 17:40 Sputum Gram Stain - Final Resulted 01/13/25 17:40 Sputum Respiratory Culture - Preliminary Resulted Problem List/Assessment/Plan Problem List/Assessment/Plan #1 acute resp failure: cont acv, cpap trial- extubate #2 asthma with exacerbation: cont meds, steroids #3 ?pneumonia/sepsis: iv antibiotics #4 vocal cord dysfunction #5 Hashimotos #6 obesity #7 anxiety Plan discussed with: Other (rn) My Orders My Orders Orders - DEANNE SIMMONS MD Procedure Category Date Status Time Methylprednisolone PHA 01/14/25 In Process Sod Succ (Solu Medrol 22:00 Pantoprazole PHA 01/15/25 In Process (Protonix) 10:00 Albuterol Medneb PHA 01/14/25 In Process (Ventolin Medneb) 18:00 Ipratropium Medneb PHA 01/14/25 In Process (Atrovent Medneb) 18:00 Chest Portable XY 01/15/25 Resulted 06:00 Abg W/ Co-Ox RT 01/15/25 Logged 06:00 Cpap Trial For Am ORDERS 01/14/25 Transmitted 15:05 Dexmedetomidine Hcl PHA 01/14/25 In Process In D5w (Precedex) 15:15 Montelukast Tablet PHA 01/15/25 In Process (Singulair Tablet) 22:00 Abg W/ Co-Ox RT 01/15/25 Logged 09:20 Extubate TARAN 01/15/25 In Process 09:46 Cool Mist Treatment ED NURSING 01/15/25 Transmitted Methylprednisolone PHA 01/15/25 Verified Sod Succ (Solu Medrol 22:00 Pt Request For Service PT 01/15/25 Verified 13:11 Clear Liq Diet DIET 01/15/25 Verified Lunch Basic Metabolic Panel LAB 01/16/25 Verified 06:00 Complete Blood Count LAB 01/16/25 Verified 06:00 Chest Portable XY 01/16/25 Verified 06:00 Dietary Evaluation Review Comments: 1) TF Glucerna 1.2 Christiano @ 65ml/hr x 24 hr (goal) along with Pro-stat 1 pk BID. Start @ 20ml/hr, increase 10ml/hr Q4H until goal rate is reached. TF at goal volume provides 100% energy & protein needs - 2072 kcal, 123 gm protein, 1256 ml free water 2) Water flush 200ml Q6H if allowed 3) TPN if NPO>7 days 4) Monitor I/O, weight trend, lab values and skin integrity Expected Outcomes/Goals: To meet at least 75% estimated needs within 7 days Fu 2-3 day Critical Care Time (mins): 81 (critical care time including cpap trial was 81 mins) Date of Service: Jan 15, 2025 Billing Provider: DEANNE SIMMONS MD Common Visit Codes: [id number] CARE 30-74 MIN, [id number] CARE-EACH +30MIN DEANNE SIMMONS MD Jan 15, 2025 13:15
[2025-01-15] MEDS: DOCUSATE SOD 100 MG CAP PO SCH (16:54)
[2025-01-15] MEDS: methylPREDNISolone SOD SUCC 40 MG/ML VL IV SCH (21:47)
[2025-01-15] MEDS: hydrALAZINE HCL 20 MG/ML VL IV PRN (21:48)
[2025-01-15] MEDS: MONTELUKAST SODIUM 10 MG TAB PO SCH (21:48)
[2025-01-15] MEDS: HYDROcodone-ACET 10/325MG TAB PO PRN (21:49)
[2025-01-15] MEDS: MELATONIN 5 MG TAB PO SCH (21:50)
[2025-01-16] VITALS (34 sets, daily range): BP systolic 125–166; BP diastolic 64–101; PULSE 64–110; RESP 12–30; TEMP 97.6–98.5; O2SAT 91–99
[2025-01-16] MEDS: MORPHINE SULFATE INJ 2 MG/ml SYRG IV ONE (01:46)
[2025-01-16] MEDS: MORPHINE SULFATE 4 MG/ML SYR/VIAL ONE (01:51)
--- NOTE | 2025-01-16 03:08 | DVH ---
CHEST RADIOGRAPH Indication: ASTHMA Technique: Single frontal view of the chest was obtained COMPARISON: XY CHEST PORTABLE on DOS: 01/15/25, XY CHEST PORTABLE on DOS: 01/14/25, XY CHEST PORTABLE on DOS: 12/12/24, XY CHEST PORTABLE on DOS: 08/02/24, XY CHEST PORTABLE on DOS: 03/26/24 FINDINGS: Lines and Tubes: None Lungs: Clear Pleura: No effusion. No pneumothorax. Cardiomediastinal contours: Unremarkable Bones: Unremarkable IMPRESSION: 1. No acute disease.
[2025-01-16 04:15] LABS: Potassium 3.9 mmol/L (3.5-5.1); Sodium 142 mmol/L (136-145)
[2025-01-16 04:16] LABS: Anion Gap 10 (5-15); Carbon Dioxide 24 mmol/L (20-31)
[2025-01-16 04:21] LABS: BUN/Creatinine Ratio 16.9 (10.0-20.0); Blood Urea Nitrogen 11 mg/dL (9-23)
[2025-01-16 04:22] LABS: Basophils # (auto) 0 10 ^3/uL (0-0.2); Basophils % (auto) 0.1 % (0.0-2.0); Eosinophils # (auto) 0 10 ^3/uL (0-0.8); Hematocrit 35.8 % (36.0-46.0); Hemoglobin 11.9 g/dL (12.2-16.2); Lipase 42 U/L (12-53); Lymphocytes % (auto) 9.2 % (10.0-50.0); Mean Corpuscular Hemoglobin 27.4 pg (28.0-32.0); Mean Corpuscular Hgb Conc. 33.4 g/dL (32.0-36.0); Mean Corpuscular Volume 82.1 fL (80.0-100.0); Monocytes # (auto) 0.3 10 ^3/uL (0-1.3); Monocytes % (auto) 2.4 % (0.0-12.0); Neutrophils # (auto) 9.2 10 ^3/uL (1.6-8.6); Neutrophils % (auto) 88.3 % (37.0-80.0); Nucleated Red Blood Cells % 0.1 %; Platelet Count (auto) 259 10^3/uL (140-450); Red Blood Cells 4.36 10^6/uL (4.0-5.20); Red Cell Distribution Width 15.4 % (11.8-14.3); White Blood Cell 10.4 10^3/uL (4.4-10.8)
[2025-01-16 04:34] LABS: Calcium 8.6 mg/dL (8.7-10.4); Chloride 108 mmol/L (98-107); Glucose 137 mg/dL (74-106)
--- NOTE | 2025-01-16 15:16 | DVHPN2 ---
Progress Note Date Seen: Jan 16, 2025 Medical Necessity Reason Pt with a Central, PICC or Fol: Yes The following are medically ne: Central Line, Arellano Catheter Reason for arellano catheter: Strict I&O Subjective Patient reports: No new complaints Review of Systems: HEENT:Normal, CVS:Normal, RESPIRATORY:Normal, GI:Normal, :Normal, MSK:Normal, NEURO:Normal Objective vital signs Vital Sign Date Time Temp Pulse Resp B/P (MAP) Pulse Ox O2 Delivery O2 Flow Rate FiO2 01/16/25 14:00 88 14 147/97 (114) 96 01/16/25 14:00 Nasal Cannula* 2 28 01/16/25 12:00 98.2 98.2 Total Intake and Output 01/15/25 01/15/25 01/16/25 15:00 23:00 07:00 Intake Total 150 ml 210 ml 30 ml Output Total 700 ml 1050 ml Balance 150 ml -490 ml -1020 ml medications Current Medications Medications Dose Ordered Sig/Jessica Route Start Time Stop Time Status Last Admin Dose Admin Enoxaparin Sodium 40 mg DAILY SC 01/14/25 06:00 01/16/25 09:07 40 MG Nitroglycerin 0.4 mg Q5MINP PRN SL 01/13/25 21:45 Morphine Sulfate 2 mg Q30M PRN IV 01/13/25 21:45 Cefepime HCl 50 ml @ 12.5 mls/hr Q24H IV 01/14/25 22:00 01/15/25 21:50 12.5 MLS/HR Diagnostic Test (Pha) 1 strip ACHS 01/14/25 07:00 01/16/25 12:35 1 STRIP Insulin Human Regular HS SC 01/14/25 22:00 01/14/25 21:22 2 UNITS Insulin Human Regular AC SC 01/14/25 07:00 01/15/25 12:11 2 UNITS Dextrose 50 ml UD PRN IV 01/14/25 02:45 Pantoprazole Sodium 40 mg DAILY IV 01/15/25 10:00 01/16/25 09:05 40 MG Albuterol 2.5 mg Q6HR NEB 01/14/25 18:00 01/16/25 12:06 2.5 MG Ipratropium [place] 0.5 mg Q6HR NEB 01/14/25 18:00 01/16/25 12:06 0.5 MG Montelukast Sodium 10 mg HS PO 01/15/25 22:00 01/15/25 21:48 10 MG Methylprednisolone Sodium Succinate 40 mg BID IV 01/15/25 22:00 01/16/25 09:26 40 MG Docusate Sodium 100 mg DAILY PO 01/15/25 16:40 01/16/25 09:08 100 MG Acetaminophen/ Hydrocodone Bitart 1 tab Q6HP PRN PO 01/15/25 20:45 01/16/25 10:14 1 TAB Hydralazine HCl 10 mg Q6HP PRN IV 01/15/25 20:45 01/15/25 21:48 10 MG Melatonin 5 mg HS PO 01/15/25 22:00 01/15/25 21:50 5 MG Examination: GENERAL:Normal, HEENT:Normal, NECK:Normal, LUNGS:Normal, LUNGS:Abnormal (on oxygen), CVS:Normal, ABDOMEN:Normal, MSK:Normal, SKIN:Normal, NEURO:Normal, :Normal laboratory and microbiology Laboratory Tests 01/16/25 03:27 Test 01/16/25 03:27 Range/Units Serum Glucose 137 H 74-106 mg/dL Microbiology Date/Time Source Procedure Growth Status 01/14/25 00:47 Nose MRSA Screen - Final Complete 01/13/25 22:40 Blood Blood Culture - Preliminary NO GROWTH AFTER 48 HOURS OF INCUBATION. Resulted 01/13/25 17:40 Sputum Gram Stain - Final Resulted 01/13/25 17:40 Sputum Respiratory Culture - Preliminary Resulted Problem List/Assessment/Plan Problem List/Assessment/Plan #1 acute resp failure: cont acv, cpap trial- extubate #2 asthma with exacerbation: cont meds, steroids #3 ?pneumonia/sepsis: antibiotics #4 vocal cord dysfunction #5 Hashimotos #6 obesity #7 anxiety advance care planning- full code- time spent 19 mins Plan discussed with: Patient My Orders My Orders Orders - DEANNE SIMMONS MD Procedure Category Date Status Time Docusate Sodium PHA 01/15/25 In Process Capsule (Colace 16:40 Regular Diet DIET 01/16/25 Transmitted Dinner Dietary Evaluation Review Comments: 1) TF Glucerna 1.2 Christiano @ 65ml/hr x 24 hr (goal) along with Pro-stat 1 pk BID. Start @ 20ml/hr, increase 10ml/hr Q4H until goal rate is reached. TF at goal volume provides 100% energy & protein needs - 2072 kcal, 123 gm protein, 1256 ml free water 2) Water flush 200ml Q6H if allowed 3) TPN if NPO>7 days 4) Monitor I/O, weight trend, lab values and skin integrity Expected Outcomes/Goals: To meet at least 75% estimated needs within 7 days Fu 2-3 day Date of Service: Jan 16, 2025 Billing Provider: DEANNE SIMMONS MD Common Visit Codes: [id number] INP/OBS CARE(HIGH) Secondary Visit Codes: 94897-[id number] CARE PLAN 30 MINUTES DEANNE SIMMONS MD Jan 16, 2025 15:16
[2025-01-16] MEDS: POLYETHYLENE GLYCOL 17 GM PWDR PO ONE (15:37)
[2025-01-16] MEDS: LACTULOSE 20Gm/30ML SOLN PO ONE (15:37)
[2025-01-16] MEDS: LACTULOSE 20Gm/30ML SOLN PO SCH (21:58)
[2025-01-16] MEDS: DOXYCYCLINE 100 MG TAB/CAP PO SCH (21:58)
[2025-01-17] VITALS (24 sets, daily range): BP systolic 86–166; BP diastolic 40–98; PULSE 66–102; RESP 14–33; TEMP 97.3–98.2; O2SAT 90–99
[2025-01-17 06:19] LABS: Anion Gap 8 (5-15); Carbon Dioxide 24 mmol/L (20-31); Potassium 4.2 mmol/L (3.5-5.1); Sodium 141 mmol/L (136-145)
[2025-01-17 06:20] LABS: Basophils # (auto) 0 10 ^3/uL (0-0.2); Basophils % (auto) 0.1 % (0.0-2.0); Eosinophils # (auto) 0 10 ^3/uL (0-0.8); Hematocrit 37.3 % (36.0-46.0); Hemoglobin 12.5 g/dL (12.2-16.2); Lymphocytes # (auto) 1.5 10 ^3/uL (0.4-5.4); Lymphocytes % (auto) 15.7 % (10.0-50.0); Mean Corpuscular Hgb Conc. 33.6 g/dL (32.0-36.0); Mean Corpuscular Volume 83.3 fL (80.0-100.0); Monocytes # (auto) 0.4 10 ^3/uL (0-1.3); Neutrophils # (auto) 7.9 10 ^3/uL (1.6-8.6); Neutrophils % (auto) 80.2 % (37.0-80.0); Platelet Count (auto) 271 10^3/uL (140-450); Red Blood Cells 4.48 10^6/uL (4.0-5.20); White Blood Cell 9.8 10^3/uL (4.4-10.8)
[2025-01-17 06:21] LABS: Calcium 9.4 mg/dL (8.7-10.4)
[2025-01-17 06:24] LABS: Chloride 109 mmol/L (98-107)
[2025-01-17 06:25] LABS: BUN/Creatinine Ratio 17.2 (10.0-20.0); Blood Urea Nitrogen 11 mg/dL (9-23)
[2025-01-17 06:26] LABS: Glucose 127 mg/dL (74-106)
--- NOTE | 2025-01-17 11:06 | DVHPN2 ---
Progress Note Date Seen: Jan 17, 2025 Medical Necessity Reason Pt with a Central, PICC or Fol: No Subjective Patient reports: No new complaints Review of Systems: HEENT:Normal, CVS:Normal, RESPIRATORY:Normal, GI:Normal, :Normal, MSK:Normal, NEURO:Normal Objective vital signs Vital Sign Date Time Temp Pulse Resp B/P (MAP) Pulse Ox O2 Delivery O2 Flow Rate FiO2 01/17/25 10:00 79 14 148/85 (106) 96 01/17/25 10:00 Room Air* 0 21 01/17/25 07:00 97.3 97.3 Total Intake and Output 01/16/25 01/16/25 01/17/25 15:00 23:00 07:00 Intake Total 390 ml 440 ml 300 ml Output Total 475 ml Balance 390 ml -35 ml 300 ml medications Current Medications Medications Dose Ordered Sig/Jessica Route Start Time Stop Time Status Last Admin Dose Admin Enoxaparin Sodium 40 mg DAILY SC 01/14/25 06:00 01/17/25 10:07 40 MG Nitroglycerin 0.4 mg Q5MINP PRN SL 01/13/25 21:45 Morphine Sulfate 2 mg Q30M PRN IV 01/13/25 21:45 Diagnostic Test (Pha) 1 strip ACHS 01/14/25 07:00 01/17/25 06:25 1 STRIP Insulin Human Regular HS SC 01/14/25 22:00 01/14/25 21:22 2 UNITS Insulin Human Regular AC SC 01/14/25 07:00 01/15/25 12:11 2 UNITS Dextrose 50 ml UD PRN IV 01/14/25 02:45 Pantoprazole Sodium 40 mg DAILY IV 01/15/25 10:00 01/17/25 10:06 40 MG Albuterol 2.5 mg Q6HR NEB 01/14/25 18:00 01/17/25 06:16 2.5 MG Ipratropium [place] 0.5 mg Q6HR NEB 01/14/25 18:00 01/17/25 06:15 0.5 MG Montelukast Sodium 10 mg HS PO 01/15/25 22:00 01/16/25 21:59 10 MG Methylprednisolone Sodium Succinate 40 mg BID IV 01/15/25 22:00 01/17/25 10:06 40 MG Docusate Sodium 100 mg DAILY PO 01/15/25 16:40 01/17/25 10:07 100 MG Acetaminophen/ Hydrocodone Bitart 1 tab Q6HP PRN PO 01/15/25 20:45 01/16/25 10:14 1 TAB Hydralazine HCl 10 mg Q6HP PRN IV 01/15/25 20:45 01/15/25 21:48 10 MG Melatonin 5 mg HS PO 01/15/25 22:00 01/16/25 21:59 5 MG Lactulose 30 ml BID PO 01/16/25 22:00 01/16/25 21:58 30 ML Doxycycline Monohydrate 100 mg Q12HR PO 01/16/25 22:00 01/17/25 10:07 100 MG Examination: GENERAL:Normal, HEENT:Normal, NECK:Normal, LUNGS:Normal, CVS:Normal, ABDOMEN:Normal, MSK:Normal, SKIN:Normal, NEURO:Normal, :Normal laboratory and microbiology Laboratory Tests 01/17/25 05:25 Test 01/17/25 05:25 Range/Units Serum Glucose 127 H 74-106 mg/dL Microbiology Date/Time Source Procedure Growth Status 01/14/25 00:47 Nose MRSA Screen - Final Complete 01/13/25 22:40 Blood Blood Culture - Preliminary NO GROWTH AFTER 72 HOURS OF INCUBATION. Resulted 01/13/25 17:40 Sputum Gram Stain - Final Complete 01/13/25 17:40 Sputum Respiratory Culture - Final Complete Problem List/Assessment/Plan Problem List/Assessment/Plan #1 acute resp failure: cont acv, cpap trial- extubate #2 asthma with exacerbation: cont meds, steroids #3 ?pneumonia/sepsis: antibiotics #4 vocal cord dysfunction #5 Hashimotos #6 obesity #7 anxiety advance care planning- full code- time spent 19 mins Plan discussed with: Patient My Orders My Orders Orders - DEANNE SIMMONS MD Procedure Category Date Status Time Regular Diet DIET 01/16/25 Transmitted Dinner D/C Tlc TARAN 01/16/25 In Process 15:13 Discontinue Vera TARAN 01/16/25 In Process Catheter 15:13 Lactulose Oral PHA 01/16/25 In Process 22:00 Insert Midline ORDERS 01/16/25 Transmitted 15:13 Doxycycline Tablet PHA 01/16/25 In Process (Vibramycin Tablet) 22:00 Transfer Orders XFER 01/16/25 Transmitted 15:31 Prednisone Tablet PHA 01/18/25 Verified 10:00 * Director Independent CONS 01/17/25 Verified Consult Dietary Evaluation Review Comments: 1) TF Glucerna 1.2 Christiano @ 65ml/hr x 24 hr (goal) along with Pro-stat 1 pk BID. Start @ 20ml/hr, increase 10ml/hr Q4H until goal rate is reached. TF at goal volume provides 100% energy & protein needs - 2072 kcal, 123 gm protein, 1256 ml free water 2) Water flush 200ml Q6H if allowed 3) TPN if NPO>7 days 4) Monitor I/O, weight trend, lab values and skin integrity Expected Outcomes/Goals: To meet at least 75% estimated needs within 7 days Fu 2-3 day Date of Service: Jan 17, 2025 Billing Provider: DEANNE SIMMONS MD Common Visit Codes: [id number] INP/OBS CARE(HIGH) DEANNE SIMMONS MD Jan 17, 2025 11:06
[2025-01-18] VITALS (9 sets, daily range): BP systolic 99–126; BP diastolic 64–86; PULSE 68–100; RESP 16–18; TEMP 97.1–97.9; O2SAT 91–100
[2025-01-18] MEDS: predniSONE 20 MG TAB PO SCH (09:21)
[2025-01-18] MEDS ORDERED: DOX100T PO (12:57)
--- NOTE | 2025-01-24 20:42 | DVHDS2 ---
Discharge Summary Date of Admission Jan 13, 2025 at 21:39 Date of Discharge: Jan 18, 2025 Labs/Diagnostic Data: Laboratory Results Test 01/17/25 05:25 01/16/25 12:37 01/16/25 03:27 01/15/25 09:23 White Blood Count 9.8 10^3/uL (4.4-10.8) Red Blood Count 4.48 10^6/uL (4.0-5.20) Hemoglobin 12.5 g/dL (12.2-16.2) Hematocrit 37.3 % (36.0-46.0) Mean Corpuscular Volume 83.3 fL (80.0-100.0) Mean Corpuscular Hemoglobin 28.0 pg (28.0-32.0) Mean Corpuscular Hemoglobin Concent 33.6 g/dL (32.0-36.0) Red Cell Distribution Width 15.0 % (11.8-14.3) Platelet Count 271 10^3/uL (140-450) Mean Platelet Volume 7.6 fL (6.9-10.8) Neutrophils (%) (Auto) 80.2 % (37.0-80.0) Lymphocytes (%) (Auto) 15.7 % (10.0-50.0) Monocytes (%) (Auto) 4.0 % (0.0-12.0) Eosinophils (%) (Auto) 0.0 % (0.0-7.0) Basophils (%) (Auto) 0.1 % (0.0-2.0) Neutrophils # (Auto) 7.9 10 ^3/uL (1.6-8.6) Lymphocytes # (Auto) 1.5 10 ^3/uL (0.4-5.4) Monocytes # (Auto) 0.4 10 ^3/uL (0-1.3) Eosinophils # (Auto) 0 10 ^3/uL (0-0.8) Basophils # (Auto) 0 10 ^3/uL (0-0.2) Nucleated Red Blood Cells 0.0 % Sodium Level 141 mmol/L (136-145) Potassium Level 4.2 mmol/L (3.5-5.1) Chloride Level 109 mmol/L (98-107) Carbon Dioxide Level 24 mmol/L (20-31) Anion Gap 8 (5-15) Blood Urea Nitrogen 11 mg/dL (9-23) Creatinine 0.64 mg/dL (0.550-1.02) Glomerular Filtration Rate Calc 112 mL/min (>90) BUN/Creatinine Ratio 17.2 (10.0-20.0) Serum Glucose 127 mg/dL (74-106) Calcium Level 9.4 mg/dL (8.7-10.4) POC Glucose 104 mg/dl (70-106) Lipase 42 U/L (12-53) Blood Gas Specimen Type Arterial Blood Gas Sample Site Right brachial Blood Gas Patient Temperature 37.0 Arterial Blood Date Drawn [id number] Arterial Blood pH 7.415 (7.350-7.450) Arterial Blood Partial Pressure CO2 29.1 mmHg (32.0-45.0) Arterial Blood Partial Pressure O2 93.1 mmHg (83.0-108.0) Arterial Blood HCO3 18.2 mmol/L (21.0-28.0) Arterial Blood Oxygen Saturation 96.8 % (94.0-98.0) Arterial Blood Base Excess -5.0 mmol/L (-2.0-3.0) Arterial Blood Oxyhemoglobin 96.3 % (94.0-98.0) Arterial Blood Carboxyhemoglobin 0.3 % (0.5-1.5) Arterial Blood Methemoglobin 0.2 % (0.0-1.5) Giacomo Test Modified Blood Gas Total Hemoglobin 13.10 g/dL (12.0-16.0) Blood Gas Modality Vent - cpap FiO2 % 30.0 Blood Gas Pressure Support 7 Blood Gas PEEP or CPAP 5.0 Test 01/15/25 07:20 01/15/25 05:03 01/15/25 03:10 01/13/25 22:32 Blood Gas Set Respiration Rate 18.0 Blood Gas Tidal Volume 500.0 Lactic Acid Level 2.6 mmol/L (0.4-2.0) Total Bilirubin < 0.2 mg/dL (0.2-1.0) Aspartate Amino Transferase (AST) 17 U/L (13-40) Alanine Aminotransferase (ALT) 13 U/L (7-40) Alkaline Phosphatase 83 U/L (46-116) Total Protein 6.2 g/dL (5.7-8.2) Albumin 4.2 g/dL (3.2-4.8) Influenza Type A Antigen Negative (Negative) Influenza Type B Antigen Negative (Negative) SARS-CoV-2 Antigen (Rapid) Negative (NEGATIVE) Test 01/13/25 22:30 01/13/25 22:01 01/13/25 18:40 01/13/25 17:13 Prothrombin Time 10.5 sec (9.3-11.8) Prothrombin Time INR 0.99 (0.9-1.15) D-Dimer, Quantitative 1.58 mg/L FEU (0.0-0.49) Hemoglobin A1c 5.2 % A1C (<5.7) Thyroid Stimulating Hormone (TSH) 0.73 uIU/mL (0.55-4.78) Free Thyroxine (T4) Calculated 1.17 ng/dL (0.89-1.76) Beta HCG, Quantitative 1.2 mIU/mL (1.5-4.2) Urine Creatinine 148.12 mg/dL (30.0-125.0) Urine Protein/Creatinine Ratio 0.07 Urine Total Protein 9.7 mg/dL (1-14) Urine Opiates Screen Neg (NEGATIVE) Urine Fentanyl Screen Pos (NEGATIVE) Urine Barbiturates Screen Neg (NEGATIVE) Urine Phencyclidine Screen Neg (NEGATIVE) Urine Amphetamines Screen Neg (NEGATIVE) Urine Benzodiazepines Screen Pos (NEGATIVE) Urine Cocaine Screen Neg (NEGATIVE) Urine Cannabinoids Screen Neg (NEGATIVE) Urine Color Light-yellow (Yellow) Urine Clarity Clear (Clear) Urine pH 5.5 (5.0-9.0) Urine Specific [place] 1.024 (1.001-1.035) Urine Protein 1+ (Negative) Urine Ketones 1+ (Negative) Urine Blood Trace /uL (Negative) Urine Nitrite Negative (Negative) Urine Bilirubin Negative (Negative) Urine Urobilinogen Normal mg/dL (Negative) Urine Leukocyte Esterase Negative /uL (Negative) Urine RBC 1 /hpf (0 - 4) Urine Microscopic WBC < 1 /HPF (0-5) Urine Squamous Epithelial Cells Few /hpf (<5) Urine Bacteria None seen /hpf (None Seen) Urine Mucus Few (None Seen) Urine Glucose 3+ mg/dL (Normal) B-Type Natriuretic Peptide 3.58 pg/mL (0-100) Other Laboratory Tests 01/17/25 05:25 Brief Hx & Hospital Course: 44 year old female with 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) , spina bifida, diverticulosis, asthma,sciatica, recurrent infections and 4 previous intubations due to a vocal cord paralysis episodes that caused acute respiratory failure , patient was brought to the ER by paramedics after a new episode of vocal cord paralysis with acute respiratory failure that started at 4 pm and progressively got worse in the next 10 minutes , even after epi and Benadryl the patient continued desaturating , on the ambulance the patient was given albuterol and Atrovent , and in the ER the patient was placed on CPAP, oxygen saturation levels continue in the lowe side for which the patinent was placed under mechanical ventilation on FIO2 70%. Chest X ray showed lef sided vascular congestion , but BNP was within normal limits , blood work and vital signs values met criteria for sepsis for which the patient was started on empiric antibiotic with cefepime and vancomycin IV , lactic acid level and d dimer were ordered. Was extubated and treated for pneumonia, was safely discharged on oral abx Condition at Discharge: Good Final Diagnosis/Problems List #1 acute resp failure: cont acv, cpap trial- extubate #2 asthma with exacerbation: cont meds, steroids #3 ?pneumonia/sepsis: antibiotics #4 vocal cord dysfunction #5 Hashimotos #6 obesity #7 anxiety Discharge Disposition: Home Discharge Instruct/Medications Diet: Regular Activity: No Restrictions, As Tolerated Follow Up/Referral: PCP in 7 days Medications: ciprofloxacin Discharge Statement: "Patient was advised to return to the ER or call 911 if any headaches, dizziness, shortness of breath, chest pain, abdominal pain, bleeding, fevers, or worsening of medical condition. Patient was counseled about treatment plan, medications, possible side effects, patientverbalized understanding. All questions were answered to the best of my ability. This discharge took greater then 30 minutes in planning, reviewing documentation, counseling the patient, and discussing with other team members." ASSESSMENT ASSESSMENT Assessment #1 acute resp failure: cont acv, cpap trial- extubate #2 asthma with exacerbation: cont meds, steroids #3 ?pneumonia/sepsis: antibiotics #4 vocal cord dysfunction #5 Hashimotos #6 obesity #7 anxiety Date of Service: Jan 18, 2025 Billing Provider: GWENDOLYN MILAN MD Common Visit Codes: [id number] DISCH DAY >30min GWENDOLYN MILAN MD Jan 24, 2025 20:42
== END 2025-01-18 14:34 | disposition home or self-care (01) | DRG 133 ==
LOC: ER 16:54 → EDBD 16:54 → EDUNIT# 21:39 → OVERFLOW 21:39 → ICU WEST 23:53 → TELE-WESTW 01-17 14:24
PROVIDERS: ADMIT Hospitalist; ATTEND Hospitalist
PROC: 5A1945Z Respiratory Ventilation, 24-96 Consecutive Hours (ICD-10-PCS; principal; 2025-01-13)
PROC: 0BH17EZ Insertion of Endotracheal Airway into Trachea, Via Natural or Artificial Opening (ICD-10-PCS; 2025-01-13)
PROC: 05H933Z Insertion of Infusion Device into Right Brachial Vein, Percutaneous Approach (ICD-10-PCS; 2025-01-16)
PROC: B54MZZA Ultrasonography of Right Upper Extremity Veins, Guidance (ICD-10-PCS; 2025-01-16)
DX: J96.00 Acute respiratory failure, unspecified whether with hypoxia or hypercapnia (principal); A41.9 Sepsis, unspecified organism; J15.69 Pneumonia due to other Gram-negative bacteria; I11.0 Hypertensive heart disease with heart failure; J38.02 Paralysis of vocal cords and larynx, bilateral; I50.9 Heart failure, unspecified; J45.901 Unspecified asthma with (acute) exacerbation; E11.65 Type 2 diabetes mellitus with hyperglycemia; F41.9 Anxiety disorder, unspecified; E87.6 Hypokalemia; E66.9 Obesity, unspecified; J38.3 Other diseases of vocal cords; Z20.822 Contact with and (suspected) exposure to COVID-19; Z83.3 Family history of diabetes mellitus; Z82.49 Family history of ischemic heart disease and other diseases of the circulatory system; Z68.31 Body mass index [BMI] 31.0-31.9, adult; Q05.9 Spina bifida, unspecified; Z79.899 Other long term (current) drug therapy
CPT/HCPCS: 31500; 36415; 36600; 71045; 71275; 80048; 80053; 80307; 81001; 82570; 82805; 82962; 83036; 83605; 83690; 83880; 84156; 84439; 84443; 84702; 85025; 85379; 85610; 87040; 87070; 87081; 87205; 87426; 87804; 93005; 94002; 94003; 94640; 96365; 96375; 97110; 99291; G0378; J0330; J0692; J2405; J2470; J2704; J3480

== ENCOUNTER 2025-02-15 10:42 | Inpatient (IN) | payer MEDICAID ==
[~2025-02-15] VITALS: Ht 170.2 cm; Wt 85.5 kg
[2025-02-15] VITALS (7 sets, daily range): BP systolic 105–122; BP diastolic 74–77; PULSE 116–133; RESP 16–33; TEMP 97.1–97.8; O2SAT 96–99
[~2025-02-15 10:42] MED LIST changes: -AUG875T PO; -CEPH500T PO; +DOX100T PO; -DOXY-346 PO; -LEVO500T91 PO
--- NOTE | 2025-02-15 11:19 | ED.PDOC ---
SOB-HPI HPI Comments 44 year old female with a Hx of Asthma, Koki's, and COPD was BIBA for the c/c of an Asthma Attack. Per EMS pt was at home when she started having an Asthma attack w/ associated wheezing 15 mins before arrival. Pt states that she had a prior asthma attack approx 1x month ago and had to be intubated her a DVH. No other associated symptoms, modifiers, recent injuries or sick contacts present at this time. Chief Complaint: Shortness of Breath Time Seen by MD: 11:15 Primary Care Provider: UNKNOWN Reviewed notes: Nurses Notes, Jewelry Engraver Notes, Medications, Allergies Information Source: Patient, Emergency Med Personnel Mode of Arrival: EMS Severity: Moderate Timing: Minutes Duration: Since onset, Minutes Context: At Rest PE Risk Factors: None History of: Asthma Prehospital treatment: Oxygen Modifying Factors: Exertion Associated Signs and Symptoms: Wheeze Quality: Other Radiation: No Radiation If cough with SOB: Non-Productive Past Medical History PAST MEDICAL HISTORY: Anemia, Anxiety, Asthma, COPD, Thyroid Surgical History: Appendectomy, Cholecystectomy, , Tonsillectomy MANAGER SHIPPING History: Denies all MANAGER SHIPPING Hx Family History Family History: Unknown Social History Smoker: Unknown Alcohol: Unknown Drugs: Unknown Lives In: Home Constitutional: denies: chills, diaphoresis, fatigue, fever, malaise, sweats, weakness, others EENTM: denies: blurred vision, double vision, ear bleeding, ear discharge, ear drainage, ear pain, ear ringing, eye pain, eye redness, hearing loss, mouth pain, mouth swelling, nasal discharge, nose bleeding, nose congestion, nose pain, photophobia, tearing, throat pain, throat swelling, voice changes, others Respiratory: reports: SOB at rest, shortness of breath, SOB with excertion, wheezing; denies: cough, hemoptysis, orthopnea, stridor, others Cardiovascular: denies: chest pain, dizzy spells, diaphoresis, Dyspnea on exertion, edema, irregular heart beat, left arm pain, lightheadedness, palpitations, PND, syncope, others Gastrointestinal: denies: abdomen distended, abdominal pain, blood streaked bowels, constipated, diarrhea, dysphagia, difficulty swallowing, hematemesis, melena, nausea, poor appetite, poor fluid intake, rectal bleeding, rectal pain, vomiting, others Genitourinary: denies: abnormal vagina bleeding, burning, dyspareunia, dysuria, flank pain, frequency, hematuria, incontinence, pain, , vagina discharge, urgency, others Neurological: denies: dizziness, fainting, headache, left sided numbness, left sided weakness, numbness, paresthesia, pre-existing deficit, right sided numbness, right sided weakness, seizure, speech problems, tingling, tremors, weakness, others Musculoskeletal: denies: back pain, gout, joint pain, joint swelling, muscle pain, muscle stiffness, neck pain, others Integumetry: denies: bruises, change in color, change in hair/nails, dryness, laceration, lesions, lumps, rash, wounds, others Allergic/Immunocompromised: denies: Difficulty Healing, Frequent Infections, Hives, Itching, others Hematologic/Lymphatic: denies: anemia, blood clots, easy bleeding, easy bruising, swollen glands, others Endocrine: denies: excessive hunger, excessive sweating, excessive thirst, excessive urination, flushing, intolerance to cold, intolerance to heat, unexplained weight gain, unexplained weight loss, others Psychiatric: denies: anxiety, bipolar disorder, depression, hopeless, panic disorder, schizophrenia, sleepless, suicidal, others All Other Systems: Reviewed and Negative Physical Exam General Appearance: Moderate Distress, Normal HEENT: Normal ENT Inspection, Pharynx Normal, TMs Normal Neck: Full Range of Motion, Non-Tender, Normal, Normal Inspection Respiratory: Accessory Muscle Use, Chest Non-Tender, Respiratory Distress, Wheezing Cardiovascular: No Edema, No JVD, No Murmur, No Gallop, Normal Peripheral Pulses, Tachycardia Breast Exam: Deferred Gastrointestinal: No Organomegaly, Non Tender, No Pulsatile Mass, Normal Bowel Sounds, Soft Genitalia: Deferred Pelvic: Deferred Rectal: Deferred Extremities: No calf tenderness, Normal capillary refill, Normal inspection, Normal range of motion, Non-tender, No pedal edema Musculoskeletal : Apperance: Normal Neurologic: Alert, special procedures nurse II-XII nml as Tested, No Motor Deficits, Normal Affect, Normal Mood, No Sensory Deficits Cerebellar Function: NOT DONE Reflexes: NOT DONE Skin: Dry, Normal Color, Warm Peripheral Pulses: 3+ Radial (R), 3+ Radial (L) Lymphatic: No Adenopathy Was a procedure done? Was a procedure done?: No Differential Dx Differential Diagnosis: Anxiety, Asthma, Bronchitis, Cardiogenic Shock, COPD, Dysrhythmia, Hyperventilation, Panic Attack, Pneumonia, Pneumothorax, Pulmonary Embolism, Respiratory Distress, Pharyngitis X-Ray, Labs, Meds, VS Vital Signs Date Time Temp Pulse Resp B/P (MAP) Pulse Ox O2 Delivery O2 Flow Rate FiO2 02/15/25 12:30 132 02/15/25 11:49 133 33 96 Room Air* 0 21 02/15/25 11:14 111 134/95 Facial BiPAP Mask 35 02/15/25 11:05 134 34 134/95 (108) 100 02/15/25 10:44 98.1 136 38 134/95 (108) 100 98.1 Lab Test 02/15/25 11:30 Range/Units White Blood Count 9.3 4.4-10.8 10^3/uL Red Blood Count 5.01 4.0-5.20 10^6/uL Hemoglobin 13.8 12.2-16.2 g/dL Hematocrit 41.6 36.0-46.0 % Mean Corpuscular Volume 83.0 80.0-100.0 fL Mean Corpuscular Hemoglobin 27.6 L 28.0-32.0 pg Mean Corpuscular Hemoglobin Concent 33.3 32.0-36.0 g/dL Red Cell Distribution Width 14.8 H 11.8-14.3 % Platelet Count 327 140-450 10^3/uL Mean Platelet Volume 7.7 6.9-10.8 fL Neutrophils (%) (Auto) 49.3 37.0-80.0 % Lymphocytes (%) (Auto) 42.6 10.0-50.0 % Monocytes (%) (Auto) 6.9 0.0-12.0 % Eosinophils (%) (Auto) 0.9 0.0-7.0 % Basophils (%) (Auto) 0.3 0.0-2.0 % Neutrophils # (Auto) 4.6 1.6-8.6 10 ^3/uL Lymphocytes # (Auto) 4.0 0.4-5.4 10 ^3/uL Monocytes # (Auto) 0.6 0-1.3 10 ^3/uL Eosinophils # (Auto) 0.1 0-0.8 10 ^3/uL Basophils # (Auto) 0 0-0.2 10 ^3/uL Nucleated Red Blood Cells 0.1 % Prothrombin Time 10.3 9.3-11.8 sec Prothrombin Time INR 0.97 0.9-1.15 Activated Partial Thromboplast Time 25.1 24.5-34.5 SEC Sodium Level 141 136-145 mmol/L Potassium Level 3.2 L 3.5-5.1 mmol/L Chloride Level 108 H 98-107 mmol/L Carbon Dioxide Level 19 L 20-31 mmol/L Anion Gap 14 5-15 Blood Urea Nitrogen 8 L 9-23 mg/dL Creatinine 0.79 0.550-1.02 mg/dL Glomerular Filtration Rate Calc 95 >90 mL/min BUN/Creatinine Ratio 10.1 10.0-20.0 Serum Glucose 142 H 74-106 mg/dL Lactic Acid Level 3.4 *H 0.4-2.0 mmol/L Calcium Level 10.4 8.7-10.4 mg/dL Total Bilirubin 0.2 0.2-1.0 mg/dL Aspartate Amino Transferase (AST) 15 13-40 U/L Alanine Aminotransferase (ALT) 12 7-40 U/L Alkaline Phosphatase 106 46-116 U/L Troponin I High Sensitivity < 3 L </=34 ng/L Total Protein 6.9 5.7-8.2 g/dL Albumin 4.7 3.2-4.8 g/dL Current Medications Medications (Trade) Dose Ordered Sig/Jessica Route Start Time Stop Time Status Last Admin Magnesium Sulfate/ Dextrose 100 ml @ 100 mls/hr ONCE ONCE IV 02/15/25 11:15 02/15/25 12:14 DC 02/15/25 11:23 Ipratropium [place] (Atrovent Medneb) 0.5 mg ONCE ONCE NEB 02/15/25 11:15 02/15/25 11:16 DC 02/15/25 11:26 Lorazepam (Ativan Inj) 1 mg ONCE ONCE IV 02/15/25 11:15 02/15/25 11:16 DC 02/15/25 11:23 Vancomycin HCl 200 ml @ 200 mls/hr ONCE ONCE IV 02/15/25 11:15 02/15/25 12:14 DC 02/15/25 12:30 Sodium Chloride 1,000 ml @ 2,000 mls/hr Q30M ONCE IV 02/15/25 11:15 02/15/25 11:44 DC 02/15/25 11:43 Albuterol (Ventolin Medneb) 20 mg ONCE ONCE NEB 02/15/25 11:30 02/15/25 11:31 DC 02/15/25 11:26 Methylprednisolone Sodium Succinate (Solu Medrol) 125 mg ONCE ONCE IV 02/15/25 11:30 02/15/25 11:31 DC 02/15/25 11:20 PATIENT: ALMA WAGGONER ACCT: [id number] UNIT: [id number] : 1980 LOC: ER ROOM / BED: / AGE / SEX: 44 / F ADM STATUS: REG ER SERVICE 1111 ORDERING PHYSICIAN: AMAN CARRINGTON MD PROCEDURE(s): CXRP - CHEST PORTABLE REASON: sob ORDER NUMBER(s): [id number], ACCESSION NUMBER(s): [id number] EXAM: XY CHEST PORTABLE HISTORY: sob COMPARISON: XY CHEST PORTABLE on DOS: 01/16/25, XY CHEST PORTABLE on DOS: 01/15/25, XY CHEST PORTABLE on DOS: 01/14/25, XY CHEST PORTABLE on DOS: 12/12/24, XY CHEST PORTABLE on DOS: 08/02/24 TECHNIQUE: Portable upright AP view of the chest was performed. FINDINGS: No pneumothorax, consolidative infiltrates, or pulmonary edema. The heart is not enlarged. IMPRESSION: No acute intrathoracic process. Patient alert. Complaining of shortness a breath. Vitals stable. Using accessory muscles. Was given steroid. Was given breathing treatment. Was given Ativan. Was given Benadryl. Chest x-ray reviewed does not show any acute process. Reviewed her previous visit. She did get intubate him many times. Explained to the patient. Continue monitoring. Time of 1ST Reevaluation: 11:46 Reevaluation 1ST: Unchanged Patient Education/Counseling: Diagnosis, Treatment, Need For Follow Up Family Education/Counseling: No Family Present SEPSIS Sepsis Screen Physician Orders Urinalysis (02/15/25 11:11) Chest Portable (02/15/25 11:11) Accucheck (02/15/25 11:11) Blood Culture (02/15/25 11:11) Cefepime 1gm/ 50ml (Maxipime 1gm/50ml) (02/15/25 20:00) Notify Md If Map <65 Or Bp<90 (02/15/25 11:11) If Map<65 Start Vasopressor (02/15/25 11:11) Sodium Chloride 0.9% (02/15/25 11:15) Troponin-I Hs (02/15/25 12:14) Troponin-I Hs (02/15/25 14:14) BIPAP (02/15/25 11:18) Insert Midline (02/15/25 11:45) Diphenhdramine Injection (Benadryl Injec (02/15/25 13:30) Vital Signs Date Time Temp Pulse Resp B/P (MAP) Pulse Ox O2 Delivery O2 Flow Rate FiO2 02/15/25 12:30 132 02/15/25 11:49 133 33 96 Room Air* 0 21 02/15/25 11:14 111 134/95 Facial BiPAP Mask 35 02/15/25 11:05 134 34 134/95 (108) 100 02/15/25 10:44 98.1 136 38 134/95 (108) 100 98.1 Laboratory Tests Test 02/15/25 11:30 Lactic Acid Level 3.4 mmol/L (0.4-2.0) *H White Blood Count 9.3 10^3/uL (4.4-10.8) Medications Medications Dose Ordered Sig/Jessica Route Start Time Stop Time Status Last Admin Dose Admin Albuterol 20 mg ONCE ONCE NEB 02/15/25 11:30 02/15/25 11:31 DC 02/15/25 11:26 Ipratropium [place] 0.5 mg ONCE ONCE NEB 02/15/25 11:15 02/15/25 11:16 DC 02/15/25 11:26 Lorazepam 1 mg ONCE ONCE IV 02/15/25 11:15 02/15/25 11:16 DC 02/15/25 11:23 Magnesium Sulfate/ Dextrose 100 ml @ 100 mls/hr ONCE ONCE IV 02/15/25 11:15 02/15/25 12:14 DC 02/15/25 11:23 Methylprednisolone Sodium Succinate 125 mg ONCE ONCE IV 02/15/25 11:30 02/15/25 11:31 DC 02/15/25 11:20 Sodium Chloride 1,000 ml @ 2,000 mls/hr Q30M ONCE IV 02/15/25 11:15 02/15/25 11:44 DC 02/15/25 11:43 Vancomycin HCl 200 ml @ 200 mls/hr ONCE ONCE IV 02/15/25 11:15 02/15/25 12:14 DC 02/15/25 12:30 Departure 1 Departure Time of Disposition: 13:21 Impression: Primary Impression: Acute respiratory failure Qualified Codes: J96.01 - Acute respiratory failure with hypoxia Additional Impression: Acute asthma exacerbation Qualified Codes: J45.41 - Moderate persistent asthma with (acute) exacerbation Disposition: ADMITTED INPATIENT Admit to: Med Surg Condition: Guarded Critical Care Note Critical Care Time?: Yes (90 min-critical care time only) Critical care comment: Continue to monitor Stability Stability form required: No Heart Score Heart Score: Heart Score Response (Comments) Value History N/A 0 EKG N/A 0 Age N/A 0 Risk Factors N/A 0 Troponin N/A 0 Total 0 I personally scribed for AMAN CARRINGTON MD ([email or web address]) on 02/15/25 at 11:19. Electronically submitted by Lauro Roger ([email or web address]). I personally scribed for AMAN CARRINGTON MD ([email or web address]) on 02/15/25 at 11:57. Electronically submitted by Lauro Roger ([email or web address]). AMAN CARRINGTON MD Feb 15, 2025 11:19
[2025-02-15] MEDS: methylPREDNISolone SOD SUCC 125 MG/2 ML VL IV ONE (11:20)
[2025-02-15] MEDS: LORazepam 2MG/ML-1ML VIAL IV ONE ×2 (11:23→13:35)
[2025-02-15] MEDS: MAGNESIUM SULFATE 1GM/100ML 100 ML IV ONE (11:23)
[2025-02-15] MEDS: ALBUTEROL SULF 2.5 MG/0.5ML(0.5%) NEB SOLN ONE (11:26)
[2025-02-15] MEDS: IPRATROPIUM BROM 0.5 MG/2.5ML INH SOL NEB ONE (11:26)
[2025-02-15] MEDS: ALBUTEROL SULF 2.5 MG/0.5ML(0.5%) NEB SOLN NEB ONE (11:26)
[2025-02-15] MEDS: methylPREDNISolone SOD SUCC 125 MG/2 ML VL ONE (11:30)
[2025-02-15] MEDS: SODIUM CHLORIDE 0.9% 1,000 ML IV ONE ×2 (11:43→15:25)
--- NOTE | 2025-02-15 11:43 | DVH ---
EXAM: XY CHEST PORTABLE HISTORY: sob COMPARISON: XY CHEST PORTABLE on DOS: 01/16/25, XY CHEST PORTABLE on DOS: 01/15/25, XY CHEST PORTABLE on DOS: 01/14/25, XY CHEST PORTABLE on DOS: 12/12/24, XY CHEST PORTABLE on DOS: 08/02/24 TECHNIQUE: Portable upright AP view of the chest was performed. FINDINGS: No pneumothorax, consolidative infiltrates, or pulmonary edema. The heart is not enlarged. IMPRESSION: No acute intrathoracic process.
[2025-02-15 11:56] LABS: Hematocrit 41.6 % (36.0-46.0); Hemoglobin 13.8 g/dL (12.2-16.2); Mean Corpuscular Hemoglobin 27.6 pg (28.0-32.0); Mean Corpuscular Volume 83.0 fL (80.0-100.0); Nucleated Red Blood Cells % 0.1 %
[2025-02-15 12:05] LABS: Alanine Aminotransferase 12 U/L (7-40); Albumin 4.7 g/dL (3.2-4.8); Alkaline Phosphatase 106 U/L (46-116); Anion Gap 14 (5-15); BUN/Creatinine Ratio 10.1 (10.0-20.0); Sodium 141 mmol/L (136-145); Total Protein 6.9 g/dL (5.7-8.2)
[2025-02-15 12:08] LABS: Bilirubin, Total 0.2 mg/dL (0.2-1.0); Blood Urea Nitrogen 8 mg/dL (9-23); Calcium 10.4 mg/dL (8.7-10.4); Carbon Dioxide 19 mmol/L (20-31); Chloride 108 mmol/L (98-107); Glucose 142 mg/dL (74-106); Potassium 3.2 mmol/L (3.5-5.1)
[2025-02-15 12:11] LABS: INR 0.97 (0.9-1.15); Partial Thromboplastin Time 25.1 SEC (24.5-34.5); Prothrombin Time 10.3 sec (9.3-11.8)
[2025-02-15 12:13] LABS: Lactic Acid w/Reflex 3.4 mmol/L (0.4-2.0)
[2025-02-15] MEDS: VANCOMYCIN 1GM/200ML PM 200 ML IV ONE (12:30)
[2025-02-15] MEDS: diphenhdrAMINE HCL 50 MG/1 ML VL IV ONE (13:40)
[2025-02-15] MEDS: CEFEPIME 1GM/ 50ML 50 ML IV ONE (15:10)
[2025-02-15] MEDS ORDERED: IPRATROPIUM BROM 0.5 MG/2.5ML INH SOL NEB PRN (16:15)
[2025-02-15] MEDS ORDERED: ALBUTEROL SULF 2.5 MG/0.5ML(0.5%) NEB SOLN NEB PRN (16:15)
[2025-02-15] MEDS ORDERED: ACETAMINOPHEN 325 MG TAB PO PRN (16:15)
[2025-02-15] MEDS ORDERED: ONDANSETRON HCL 4 MG/2 ML VIAL IV PRN (16:15)
[2025-02-15 16:19] LABS: Urine Protein, UAD Negative (Negative)
--- NOTE | 2025-02-15 16:42 | DVHHP2 ---
History of Present Illness Reason for Visit: Shortness of breath History of Present Illness Sammie Haas is a 44-year-old female with past medical history of asthma, COPD, Koki (not on treatment), anxiety, and chronic pain, who came to the hospital for shortness of breath. Patient states she as out with her sons when the smell of smoke began to bother her. She felt an asthma attack starting so she drove herself to the hospital. While in the ER she was placed on BiPAP for a while. On assessment she is off the BiPAP, on room air, saturating well. Pulmonary: Asthma, COPD Psych: Anxiety Musculoskeletal: Chronic low back pain Endocrine: Hypothyroidism Past Surgical History: Appendectomy, Cholecystectomy, (x 3), Other (right leg) Smoke: No ALCOHOL: none Drugs: None Lives: with Family Domestic Violence: Neg Review of Systems Constitutional: No: Fever, Chills, Sweats, Weakness, Malaise, Other Eyes: No: Pain, Vision change, Conjunctivae inflammation, Eyelid inflammation, Other, Redness ENT: No: Ear pain, Ear discharge, Nose pain, Nose discharge, Nose congestion, Mouth pain, Mouth swelling, Throat pain, Throat swelling, Other Respiratory: Shortness of breath, SOB with excertion, Wheezing; No: Cough, Dry, Hemoptysis, Pleuritic Pain, Sputum, Wheezing, Other Cardiovascular: No: Chest Pain, Palpitations, Orthopnea, Paroxysmal Noc. Dyspnea, Edema, Lt Headedness, Other Gastrointestinal: No: Nausea, Vomiting, Abdominal Pain, Diarrhea, Constipation, Melena, Hematochezia, Other Genitourinary: No Dysuria, No Frequency, No Incontinence, No Hematuria, No Retention, No Other Musculoskeletal: No: other, neck pain, shoulder pain, arm pain, back pain, hand pain, leg pain, foot pain Skin: No: Rash, Lesions, Jaundice, Bruising, Other Neurological: No: Weakness, Numbness, Incoordination, Change in speech, Confusion, Seizures, Other Allergies: Coded Allergies: Ibuprofen (Verified Allergy, Unknown, 04/25/23) Levothyroxine (Verified Allergy, Unknown, 04/25/23) Medications Current Medications Medications Dose Ordered Sig/Jessica Route Start Time Stop Time Status Last Admin Dose Admin Cefepime HCl 50 ml @ 12.5 mls/hr Q8H IV 02/15/25 20:00 Exam Vital Signs Vital Signs Date Time Temp Pulse Resp B/P (MAP) Pulse Ox O2 Delivery O2 Flow Rate FiO2 02/15/25 14:06 118 17 122/77 (92) 97 02/15/25 11:49 Room Air* 0 21 02/15/25 10:44 98.1 98.1 General Appearance: Alert, Oriented X3, Cooperative, mild distress HEENT: Atraumatic, PERRLA Respiratory: Other (bilateral wheezing and diminished breath sounds) Cardiovascular: Normal S1, Normal S2, Other (ST-SR) Abdominal: Normal bowel sounds, Soft, No tenderness, No hepatospenomegaly Extremities: No clubbing, No cyanosis, No edema, Normal pulses Skin: No rashes, No significant lesion Neuro: Normal gait, Normal speech, Strength at 5/5 X4 ext, Normal tone Psych/Mental Status: Mental status NL, Mood NL Labs/Xrays Labs Test 02/15/25 13:33 02/15/25 11:30 Range/Units Lactic Acid Level 4.1 *H 0.4-2.0 mmol/L Troponin I High Sensitivity < 3 L </=34 ng/L White Blood Count 9.3 4.4-10.8 10^3/uL Red Blood Count 5.01 4.0-5.20 10^6/uL Hemoglobin 13.8 12.2-16.2 g/dL Hematocrit 41.6 36.0-46.0 % Mean Corpuscular Volume 83.0 80.0-100.0 fL Mean Corpuscular Hemoglobin 27.6 L 28.0-32.0 pg Mean Corpuscular Hemoglobin Concent 33.3 32.0-36.0 g/dL Red Cell Distribution Width 14.8 H 11.8-14.3 % Platelet Count 327 140-450 10^3/uL Mean Platelet Volume 7.7 6.9-10.8 fL Neutrophils (%) (Auto) 49.3 37.0-80.0 % Lymphocytes (%) (Auto) 42.6 10.0-50.0 % Monocytes (%) (Auto) 6.9 0.0-12.0 % Eosinophils (%) (Auto) 0.9 0.0-7.0 % Basophils (%) (Auto) 0.3 0.0-2.0 % Neutrophils # (Auto) 4.6 1.6-8.6 10 ^3/uL Lymphocytes # (Auto) 4.0 0.4-5.4 10 ^3/uL Monocytes # (Auto) 0.6 0-1.3 10 ^3/uL Eosinophils # (Auto) 0.1 0-0.8 10 ^3/uL Basophils # (Auto) 0 0-0.2 10 ^3/uL Nucleated Red Blood Cells 0.1 % Prothrombin Time 10.3 9.3-11.8 sec Prothrombin Time INR 0.97 0.9-1.15 Activated Partial Thromboplast Time 25.1 24.5-34.5 SEC Sodium Level 141 136-145 mmol/L Potassium Level 3.2 L 3.5-5.1 mmol/L Chloride Level 108 H 98-107 mmol/L Carbon Dioxide Level 19 L 20-31 mmol/L Anion Gap 14 5-15 Blood Urea Nitrogen 8 L 9-23 mg/dL Creatinine 0.79 0.550-1.02 mg/dL Glomerular Filtration Rate Calc 95 >90 mL/min BUN/Creatinine Ratio 10.1 10.0-20.0 Serum Glucose 142 H 74-106 mg/dL Calcium Level 10.4 8.7-10.4 mg/dL Total Bilirubin 0.2 0.2-1.0 mg/dL Aspartate Amino Transferase (AST) 15 13-40 U/L Alanine Aminotransferase (ALT) 12 7-40 U/L Alkaline Phosphatase 106 46-116 U/L Total Protein 6.9 5.7-8.2 g/dL Albumin 4.7 3.2-4.8 g/dL EXAM: XY CHEST PORTABLE FINDINGS: No pneumothorax, consolidative infiltrates, or pulmonary edema. The heart is not enlarged. IMPRESSION: No acute intrathoracic process. Assessment/Plan Assessment/Plan Assessment: Acute respiratory failure, Asthma, Hyperglycemia, Lactic acidosis, Vocal cord dysfunction, Hypokalemia, Chronic back pain, Anxiety, Obesity, Plan: Admit to Med-Surg, IV antibiotics, IV hydration, Breathing treatments as needed, IV steroids, Supplemental oxygen as needed, Manage/Monitor electrolytes, Home medications reconciled, Plan discussed with: Patient Date of Service: Feb 15, 2025 Billing Provider: KANA FOY CHEMICAL CELL CHANGER Common Visit Codes: [id number] INP/OBS CARE (MOD) KANA FOY [facility] Feb 15, 2025 16:42
[2025-02-15] MEDS: POTASSIUM EFFERVESENT TAB 25 MEQ PO ONE (17:22)
[2025-02-15] MEDS: OXYCODONE W/ ACETAMINOPHEN 5/325MG TABLET PO PRN (17:24)
[2025-02-15] MEDS: CEFEPIME 1GM/ 50ML 50 ML IV SCH (20:11)
[2025-02-15] MEDS: MONTELUKAST SODIUM 10 MG TAB PO SCH (21:04)
[2025-02-15] MEDS: CYCLOBENZAPRINE HCL 10 MG TAB PO SCH (21:05)
[2025-02-15] MEDS: methylPREDNISolone SOD SUCC 40 MG/ML VL IV SCH (21:05)
[2025-02-15] MEDS: SODIUM CHLOR 0.9% PF (SALINE LOCK) 10ML VIAL/SYR IV SCH (21:05)
[2025-02-15] MEDS: GABAPENTIN 300 MG CAP PO PRN (21:59)
[2025-02-16] VITALS (8 sets, daily range): BP systolic 110–137; BP diastolic 66–88; PULSE 80–103; RESP 18; TEMP 97.9–99; O2SAT 95–98
[2025-02-16] MEDS: MELATONIN 5 MG TAB PO ONE (01:18)
[2025-02-16] MEDS: DOCUSATE SOD 100 MG CAP PO PRN (11:12)
[2025-02-16 11:23] LABS: Hematocrit 37.7 % (36.0-46.0); Hemoglobin 12.5 g/dL (12.2-16.2); Mean Corpuscular Hemoglobin 27.8 pg (28.0-32.0); Mean Corpuscular Volume 83.8 fL (80.0-100.0); Nucleated Red Blood Cells % 0.0 %
[2025-02-16 11:48] LABS: Alanine Aminotransferase 11 U/L (7-40); Alkaline Phosphatase 90 U/L (46-116); Anion Gap 11 (5-15); BUN/Creatinine Ratio 10.4 (10.0-20.0); Calcium 9.9 mg/dL (8.7-10.4); Carbon Dioxide 22 mmol/L (20-31); Potassium 3.9 mmol/L (3.5-5.1); Sodium 142 mmol/L (136-145); Total Protein 6.4 g/dL (5.7-8.2)
[2025-02-16 11:49] LABS: Albumin 4.4 g/dL (3.2-4.8)
[2025-02-16 11:52] LABS: Bilirubin, Total 0.3 mg/dL (0.2-1.0); Blood Urea Nitrogen 8 mg/dL (9-23); Chloride 109 mmol/L (98-107); Glucose 125 mg/dL (74-106)
--- NOTE | 2025-02-16 13:42 | DVHPN2 ---
Subjective The patient is seen and examined at bedside. Still complain of shortness of breath Reviewed: Care Plan, H&P, Labs, Medications, Previous Orders, Radiology Changes from previous H/P or p: No Changes Eyes: No Pain, No Vision change, No Conjunctivae inflammation, No Eyelid inflammation, No Other, No Redness ENT: No Ear pain, No Ear discharge, No Nose pain, No Nose discharge, No Nose congestion, No Mouth pain, No Mouth swelling, No Throat pain, No Throat swelling, No Other Cardiovascular: No Chest Pain, No Palpitations, No Orthopnea, No Paroxysmal Noc. Dyspnea, No Edema, No Lt Headedness, No Other Respiratory: No Cough, No Dry; Shortness of breath, SOB with excertion, W heezing; No Hemoptysis, No Pleuritic Pain, No Sputum, No Other Gastrointestinal: No Nausea, No Vomiting, No Abdominal Pain, No Diarrhea, No Constipation, No Melena, No Hematochezia, No Other Genitourinary: No Dysuria, No Frequency, No Incontinence, No Hematuria, No Retention, No Other Musculoskeletal: No other, No neck pain, No shoulder pain, No arm pain, No back pain, No hand pain, No leg pain, No foot pain Skin: No Rash, No Lesions, No Jaundice, No Bruising, No Other Objective Vitals Vital Signs Date Time Temp Pulse Resp B/P (MAP) Pulse Ox O2 Delivery O2 Flow Rate FiO2 02/16/25 13:00 98.5 90 18 114/66 (82) 98 98.5 02/16/25 08:00 Room Air* 0 21 Intake/Output Intake and Output 02/16/25 07:00 Intake Total 300 ml Balance 300 ml Intake Oral 300 ml # Voids 3 General Appearance: Alert, Oriented X3, Cooperative, No acute distress HEENT: Atraumatic, PERRLA, EOMI, Mucous membr. moist/pink Lungs: Clear to auscultation, Normal air movement Cardiovascular: Regular rate, Normal S1, Normal S2, No murmurs, Gallops, Rubs Abdomen: Normal bowel sounds, No tenderness Neuro: Cranial nerves 3-12 NL Psych/Mental Status: Mental status NL Medications Current Medications Medications Dose Ordered Sig/Jessica Route Start Time Stop Time Status Last Admin Dose Admin Cefepime HCl 50 ml @ 12.5 mls/hr Q8H IV 02/15/25 20:00 7/5/25 11:12 12.5 MLS/HR Sodium Chloride 10 ml Q8HR IV 02/15/25 22:00 02/16/25 05:53 10 ML Ondansetron HCl 4 mg Q4HP PRN IV 02/15/25 16:15 Docusate Sodium 100 mg BIDPRN PRN PO 02/15/25 16:15 02/16/25 11:12 100 MG Acetaminophen 650 mg Q6HP PRN PO 02/15/25 16:15 Albuterol 2.5 mg Q4HPRN PRN NEB 02/15/25 16:15 Ipratropium [place] 0.5 mg Q4HPRN PRN NEB 02/15/25 16:15 Methylprednisolone Sodium Succinate 40 mg BID IV 02/15/25 22:00 02/16/25 09:34 40 MG Cyclobenzaprine HCl 5 mg BID PO 02/15/25 22:00 02/16/25 09:35 5 MG Gabapentin 300 mg BID PRN PO 02/15/25 16:15 02/15/25 21:59 300 MG Montelukast Sodium 10 mg HS PO 02/15/25 22:00 02/15/25 21:04 10 MG Oxycodone/ Acetaminophen 1 tab Q6HP PRN PO 02/15/25 17:00 02/16/25 09:40 1 TAB Melatonin 5 mg HS PO 02/16/25 22:00 Laboratory Results Laboratory Tests 02/16/25 10:37 Chemistry Test 02/16/25 10:37 Albumin 4.4 g/dL (3.2-4.8) Calcium Level 9.9 mg/dL (8.7-10.4) Total Protein 6.4 g/dL (5.7-8.2) LFT Test 02/16/25 10:37 Alanine Aminotransferase (ALT) 11 U/L (7-40) Alkaline Phosphatase 90 U/L (46-116) Aspartate Amino Transferase (AST) 12 U/L (13-40) L Total Bilirubin 0.3 mg/dL (0.2-1.0) Urinalysis Test 02/15/25 15:30 Urine Color Colorless (Yellow) Urine Clarity Clear (Clear) Urine pH 5.0 (5.0-9.0) Urine Specific [place] 1.007 (1.001-1.035) Urine Protein Negative (Negative) Urine Ketones Trace (Negative) Urine Blood Negative /uL (Negative) Urine Nitrite Negative (Negative) Urine Bilirubin Negative (Negative) Urine Urobilinogen Normal mg/dL (Negative) Urine Leukocyte Esterase Negative /uL (Negative) Urine RBC <1 /hpf (0 - 4) Urine Microscopic WBC < 1 /HPF (0-5) Urine Squamous Epithelial Cells None seen /hpf (<5) Urine Bacteria None seen /hpf (None Seen) Urine Glucose Normal mg/dL (Normal) Microbiology Microbiology Date/Time Source Procedure Growth Status 02/15/25 11:30 Blood Blood Culture - Preliminary NO GROWTH AFTER 24 HOURS OF INCUBATION. Resulted Labs and/or images reviewed: Labs reviewed by me Assessment/Plan Assessment/Plan Acute respiratory failure, Asthma, Hyperglycemia, Lactic acidosis, Vocal cord dysfunction, Hypokalemia, Chronic back pain, Anxiety, Obesity, Koki thyroiditis Continuing current management. Continuing with oxygen, nebulizer. Continuing with Rocephin and Zithromax. Continuing with Solu-Medrol Replace electrolytes This medical document was created using an electronic medical record system with [employer] direct computerized dictation system. Although this document has been carefully reviewed, there may still be some phonetic and typographical errors. These areas are purely typographical due to imperfections of the software programs, and do not reflect any compromise in the patient's medical care. Plan discussed with: Patient Date of Service: Feb 16, 2025 Billing Provider: HEATHER CLARK MD Common Visit Codes: [id number] INP/OBS CARE(HIGH) HEATHER CLARK MD Feb 16, 2025 13:42
[2025-02-17] VITALS (8 sets, daily range): BP systolic 115–138; BP diastolic 74–83; PULSE 67–90; RESP 17–20; TEMP 97.9–98.8; O2SAT 96–99
[2025-02-17] MEDS: MELATONIN 5 MG TAB PO SCH (00:33)
[2025-02-17 06:01] LABS: Hematocrit 38.3 % (36.0-46.0); Hemoglobin 12.6 g/dL (12.2-16.2); Mean Corpuscular Hemoglobin 27.5 pg (28.0-32.0); Mean Corpuscular Volume 83.4 fL (80.0-100.0); Nucleated Red Blood Cells % 0.0 %
[2025-02-17 06:17] LABS: Anion Gap 11 (5-15); Calcium 9.6 mg/dL (8.7-10.4); Carbon Dioxide 22 mmol/L (20-31); Potassium 4.3 mmol/L (3.5-5.1); Sodium 141 mmol/L (136-145)
[2025-02-17 06:22] LABS: Chloride 108 mmol/L (98-107)
[2025-02-17 06:23] LABS: BUN/Creatinine Ratio 12.2 (10.0-20.0); Blood Urea Nitrogen 10 mg/dL (9-23); Glucose 140 mg/dL (74-106)
--- NOTE | 2025-02-17 13:44 | DVHPN2 ---
Subjective The patient is seen and examined at bedside. Still have shortness for breath. Reviewed: Care Plan, H&P, Labs, Medications, Previous Orders, Radiology Changes from previous H/P or p: No Changes Eyes: No Pain, No Vision change, No Conjunctivae inflammation, No Eyelid inflammation, No Other, No Redness ENT: No Ear pain, No Ear discharge, No Nose pain, No Nose discharge, No Nose congestion, No Mouth pain, No Mouth swelling, No Throat pain, No Throat swelling, No Other Cardiovascular: No Chest Pain, No Palpitations, No Orthopnea, No Paroxysmal Noc. Dyspnea, No Edema, No Lt Headedness, No Other Respiratory: No Cough, No Dry; Shortness of breath, SOB with excertion, W heezing; No Hemoptysis, No Pleuritic Pain, No Sputum, No Other Gastrointestinal: No Nausea, No Vomiting, No Abdominal Pain, No Diarrhea, No Constipation, No Melena, No Hematochezia, No Other Genitourinary: No Dysuria, No Frequency, No Incontinence, No Hematuria, No Retention, No Other Musculoskeletal: No other, No neck pain, No shoulder pain, No arm pain, No back pain, No hand pain, No leg pain, No foot pain Skin: No Rash, No Lesions, No Jaundice, No Bruising, No Other Objective Vitals Vital Signs Date Time Temp Pulse Resp B/P (MAP) Pulse Ox O2 Delivery O2 Flow Rate FiO2 02/17/25 09:00 98.2 68 18 121/74 (90) 98 98.2 02/17/25 08:00 Room Air* 0 21 Intake/Output Intake and Output 02/17/25 07:00 Intake Total 2080 ml Balance 2080 ml Intake Oral 1930 ml IV Total 150 ml # Voids 5 General Appearance: Alert, Oriented X3, Cooperative, No acute distress HEENT: Atraumatic, PERRLA, EOMI, Mucous membr. moist/pink Neck: Supple Lungs: Clear to auscultation, Normal air movement Cardiovascular: Regular rate, Normal S1, Normal S2, No murmurs, Gallops, Rubs Abdomen: Normal bowel sounds, Soft, No tenderness Neuro: Cranial nerves 3-12 NL Psych/Mental Status: Mental status NL Medications Current Medications Medications Dose Ordered Sig/Jessica Route Start Time Stop Time Status Last Admin Dose Admin Cefepime HCl 50 ml @ 12.5 mls/hr Q8H IV 02/15/25 20:00 02/17/25 11:23 12.5 MLS/HR Sodium Chloride 10 ml Q8HR IV 02/15/25 22:00 02/17/25 05:16 10 ML Ondansetron HCl 4 mg Q4HP PRN IV 02/15/25 16:15 Docusate Sodium 100 mg BIDPRN PRN PO 02/15/25 16:15 02/16/25 22:10 100 MG Acetaminophen 650 mg Q6HP PRN PO 02/15/25 16:15 Albuterol 2.5 mg Q4HPRN PRN NEB 02/15/25 16:15 Ipratropium [place] 0.5 mg Q4HPRN PRN NEB 02/15/25 16:15 Methylprednisolone Sodium Succinate 40 mg BID IV 02/15/25 22:00 02/17/25 09:14 40 MG Cyclobenzaprine HCl 5 mg BID PO 02/15/25 22:00 02/17/25 09:14 5 MG Gabapentin 300 mg BID PRN PO 02/15/25 16:15 02/16/25 13:57 300 MG Montelukast Sodium 10 mg HS PO 02/15/25 22:00 02/16/25 22:11 10 MG Oxycodone/ Acetaminophen 1 tab Q6HP PRN PO 02/15/25 17:00 02/17/25 09:15 1 TAB Melatonin 5 mg HS PO 02/16/25 22:00 02/17/25 00:33 5 MG Laboratory Results Laboratory Tests 02/17/25 05:09 Chemistry Test 02/17/25 05:09 Calcium Level 9.6 mg/dL (8.7-10.4) Urinalysis Test 02/15/25 15:30 Urine Color Colorless (Yellow) Urine Clarity Clear (Clear) Urine pH 5.0 (5.0-9.0) Urine Specific [place] 1.007 (1.001-1.035) Urine Protein Negative (Negative) Urine Ketones Trace (Negative) Urine Blood Negative /uL (Negative) Urine Nitrite Negative (Negative) Urine Bilirubin Negative (Negative) Urine Urobilinogen Normal mg/dL (Negative) Urine Leukocyte Esterase Negative /uL (Negative) Urine RBC <1 /hpf (0 - 4) Urine Microscopic WBC < 1 /HPF (0-5) Urine Squamous Epithelial Cells None seen /hpf (<5) Urine Bacteria None seen /hpf (None Seen) Urine Glucose Normal mg/dL (Normal) Microbiology Microbiology Date/Time Source Procedure Growth Status 02/15/25 21:00 Nose MRSA Screen - Final Complete 02/15/25 11:30 Blood Blood Culture - Preliminary NO GROWTH AFTER 48 HOURS OF INCUBATION. Resulted Labs and/or images reviewed: Labs reviewed by me Assessment/Plan Assessment/Plan Acute respiratory failure, Asthma, Hyperglycemia, Lactic acidosis, Vocal cord dysfunction, Hypokalemia, Chronic back pain, Anxiety, Obesity, Koki thyroiditis Continuing current management. Continuing with oxygen, nebulizer. Continuing with Rocephin and Zithromax. Continuing with Solu-Medrol Replace electrolytes This medical document was created using an electronic medical record system with [employer] direct computerized dictation system. Although this document has been carefully reviewed, there may still be some phonetic and typographical errors. These areas are purely typographical due to imperfections of the software programs, and do not reflect any compromise in the patient's medical care. Plan discussed with: Patient Date of Service: Feb 17, 2025 Billing Provider: HEATHER CLARK MD Common Visit Codes: [id number] INP/OBS CARE(HIGH) HEATHER CLARK MD Feb 17, 2025 13:44
[2025-02-17] MEDS: LACTULOSE 20Gm/30ML SOLN PO ONE (15:04)
[2025-02-17] MEDS: LACTULOSE 20Gm/30ML SOLN PO SCH (22:19)
[2025-02-18 01:00] VITALS: BP 136/83; PULSE 60; RESP 20; TEMP 98.4; O2SAT 60
[2025-02-18 05:00] VITALS: BP 127/84; PULSE 62; RESP 16; TEMP 98.2; O2SAT 97
[2025-02-18 05:39] VITALS: O2SAT 96
[2025-02-18 08:30] VITALS: BP 130/83; PULSE 78; RESP 18; TEMP 98.1; O2SAT 96
[2025-02-18 08:45] VITALS: BP 127/84; PULSE 62; RESP 16; O2SAT 96
[2025-02-18] MEDS ORDERED: AZIT-185 PO (12:24)
--- NOTE | 2025-02-18 12:27 | DVHDS2 ---
Discharge Summary Date of Admission Feb 15, 2025 at 16:02 Date of Discharge: Feb 18, 2025 Admitting Diagnosis Acute respiratory failure, Asthma, Hyperglycemia, Lactic acidosis, Vocal cord dysfunction, Hypokalemia, Chronic back pain, Anxiety, Obesity, Koki thyroiditis Labs/Diagnostic Data: Laboratory Results Test 02/17/25 05:09 02/16/25 10:37 02/15/25 15:30 02/15/25 13:33 White Blood Count 11.9 10^3/uL (4.4-10.8) Red Blood Count 4.59 10^6/uL (4.0-5.20) Hemoglobin 12.6 g/dL (12.2-16.2) Hematocrit 38.3 % (36.0-46.0) Mean Corpuscular Volume 83.4 fL (80.0-100.0) Mean Corpuscular Hemoglobin 27.5 pg (28.0-32.0) Mean Corpuscular Hemoglobin Concent 33.0 g/dL (32.0-36.0) Red Cell Distribution Width 14.6 % (11.8-14.3) Platelet Count 311 10^3/uL (140-450) Mean Platelet Volume 7.9 fL (6.9-10.8) Neutrophils (%) (Auto) 86.8 % (37.0-80.0) Lymphocytes (%) (Auto) 11.3 % (10.0-50.0) Monocytes (%) (Auto) 1.8 % (0.0-12.0) Eosinophils (%) (Auto) 0.0 % (0.0-7.0) Basophils (%) (Auto) 0.1 % (0.0-2.0) Neutrophils # (Auto) 10.4 10 ^3/uL (1.6-8.6) Lymphocytes # (Auto) 1.4 10 ^3/uL (0.4-5.4) Monocytes # (Auto) 0.2 10 ^3/uL (0-1.3) Eosinophils # (Auto) 0 10 ^3/uL (0-0.8) Basophils # (Auto) 0 10 ^3/uL (0-0.2) Nucleated Red Blood Cells 0.0 % Sodium Level 141 mmol/L (136-145) Potassium Level 4.3 mmol/L (3.5-5.1) Chloride Level 108 mmol/L (98-107) Carbon Dioxide Level 22 mmol/L (20-31) Anion Gap 11 (5-15) Blood Urea Nitrogen 10 mg/dL (9-23) Creatinine 0.82 mg/dL (0.550-1.02) Glomerular Filtration Rate Calc 91 mL/min (>90) BUN/Creatinine Ratio 12.2 (10.0-20.0) Serum Glucose 140 mg/dL (74-106) Lactic Acid Level 1.9 mmol/L (0.4-2.0) Calcium Level 9.6 mg/dL (8.7-10.4) Total Bilirubin 0.3 mg/dL (0.2-1.0) Aspartate Amino Transferase (AST) 12 U/L (13-40) Alanine Aminotransferase (ALT) 11 U/L (7-40) Alkaline Phosphatase 90 U/L (46-116) Total Protein 6.4 g/dL (5.7-8.2) Albumin 4.4 g/dL (3.2-4.8) Urine Color Colorless (Yellow) Urine Clarity Clear (Clear) Urine pH 5.0 (5.0-9.0) Urine Specific [place] 1.007 (1.001-1.035) Urine Protein Negative (Negative) Urine Ketones Trace (Negative) Urine Blood Negative /uL (Negative) Urine Nitrite Negative (Negative) Urine Bilirubin Negative (Negative) Urine Urobilinogen Normal mg/dL (Negative) Urine Leukocyte Esterase Negative /uL (Negative) Urine RBC <1 /hpf (0 - 4) Urine Microscopic WBC < 1 /HPF (0-5) Urine Squamous Epithelial Cells None seen /hpf (<5) Urine Bacteria None seen /hpf (None Seen) Urine Glucose Normal mg/dL (Normal) Troponin I High Sensitivity < 3 ng/L (</=34) Test 02/15/25 11:30 Prothrombin Time 10.3 sec (9.3-11.8) Prothrombin Time INR 0.97 (0.9-1.15) Activated Partial Thromboplast Time 25.1 SEC (24.5-34.5) Other Laboratory Tests 02/17/25 05:09 Brief Hx & Hospital Course: This is a 44 years old female with past medical history of asthma, COPD, Koki , anxiety, chronic pain syndrome come to emergency department because severe shortness for breath. The patient apparently was male some cigarette smoke and become respiratory distress. So she came to emergency department for further evaluation. In the emergency department her saturation oxygen dropped to 80 %. She was placed on BiPAP for awhile and subsequently able to wean off. The patient was admitted. The patient was treated with IV antibiotic cefepime. The patient also was given Solu-Medrol IV, pain medication, oxygen. The patient subsequently doing better. She did not have any shortness for breath. The patient was in room air. I am going to discharge her home. Advised her to follow up with primary care physician 1-2 weeks. Follow up with ocean export account manager regarding to her Koki per schedule. Follow up with calciner operator per schedule. Activity as tolerated. Diet per home diet. Physical exam: HEENT: Normocephalic atraumatic pupils equal react to light and accommodation. Extraocular muscles intact, conjunctiva pink, oropharynx moist, no thrush, no exudate. Lymphatic: No lymphadenopathy Cardiovascular exam: S1, S2 was heard. No murmurs, rubs, gallops Lung: Clear on auscultation bilaterally, no wheeze, rale, rhonchi. GI: Abdominal soft, nondistended, nontenderness, positive bowel sounds. Extremity: No crepitus, cyanosis, edema. Pedal pulses present bilateral. Full range of motion. Skin: Normal turgor, no rash. Psych: Alert, oriented x3. Neurology: No focal deficits, cranial nerve II to XII grossly intact. This medical document was created using an electronic medical record system with [employer] direct computerized dictation system. Although this document has been carefully reviewed, there may still be some phonetic and typographical errors. These areas are purely typographical due to imperfections of the software programs, and do not reflect any compromise in the patient's medical care. Condition at Discharge: Stable Final Diagnosis/Problems List Acute respiratory failure, Asthma, Hyperglycemia, Lactic acidosis, Vocal cord dysfunction, Hypokalemia, Chronic back pain, Anxiety, Obesity, Koki thyroiditis Discharge Disposition: Home Discharge Instruct/Medications Diet: Regular Activity: No Restrictions, As Tolerated Follow Up/Referral: pcp 1-2 WEEKS Medications: SEE MED LIST Scheduled Azithromycin (Zithromax Tablet), 250 MG PO DAILY Cholecalciferol (Vitamin D3), 5,000 UNIT OR QWEEKLY, (Reported) Cyclobenzaprine Hcl (Cyclobenzaprine Hcl), 5 MG PO BID, (Reported) Docusate Sodium (Colace), 100 MG PO DAILY, (Reported) Ferrous Sulfate (Ferosul), 325 PO DAILY, (Reported) Montelukast Sodium (Montelukast Sodium), 1 TAB PO DAILY, (Reported) Scheduled PRN Albuterol Sulfate (Ventolin), 2.5 MG NEB Q4HPRN PRN Gabapentin (Gabapentin), 300 MG PO BID PRN for NEUROPATHRY LEG PAIN, (Reported) Oxycodone W/ Acetaminophen (Apap/Oxycodone), 1 TAB PO QID PRN for BACK PAIN,, (Reported) Discontinued Medications Acetaminophen (Acetaminophen), 500 MG PO Q6HP PRN Buprenorphine (Butrans), 1 PATCH TOP QWEEKLY, (Reported) Doxycycline Monohydrate (Doxycycline Monohydrate), 100 MG PO Q12HR Loratadine (Claritin Tablet), 10 MG PO DAILYPRN PRN Prednisone (Prednisone), 40 MG PO DAILY Sulfamethoxazole W/Trimethopri (Bactrim Ds Tablet), 1 TAB PO BID Discharge Statement: "Patient was advised to return to the ER or call 911 if any headaches, dizziness, shortness of breath, chest pain, abdominal pain, bleeding, fevers, or worsening of medical condition. Patient was counseled about treatment plan, medications, possible side effects, patientverbalized understanding. All questions were answered to the best of my ability. This discharge took greater then 30 minutes in planning, reviewing documentation, counseling the patient, and discussing with other team members." ASSESSMENT ASSESSMENT Assessment pna Date of Service: Feb 18, 2025 Billing Provider: HEATHER CLARK MD Common Visit Codes: 15397-CBI/OBS DISCH DAY >30min HEATHER CLARK MD Feb 18, 2025 12:27
--- NOTE | 2025-02-18 12:27 | DVHPN2 ---
Eyes: No Pain, No Vision change, No Conjunctivae inflammation, No Eyelid inflammation, No Other, No Redness ENT: No Ear pain, No Ear discharge, No Nose pain, No Nose discharge, No Nose congestion, No Mouth pain, No Mouth swelling, No Throat pain, No Throat swelling, No Other Cardiovascular: No Chest Pain, No Palpitations, No Orthopnea, No Paroxysmal Noc. Dyspnea, No Edema, No Lt Headedness, No Other Respiratory: No Cough, No Dry; Shortness of breath, SOB with excertion, W heezing; No Hemoptysis, No Pleuritic Pain, No Sputum, No Other Gastrointestinal: No Nausea, No Vomiting, No Abdominal Pain, No Diarrhea, No Constipation, No Melena, No Hematochezia, No Other Genitourinary: No Dysuria, No Frequency, No Incontinence, No Hematuria, No Retention, No Other Musculoskeletal: No other, No neck pain, No shoulder pain, No arm pain, No back pain, No hand pain, No leg pain, No foot pain Skin: No Rash, No Lesions, No Jaundice, No Bruising, No Other Objective Vitals Vital Signs Date Time Temp Pulse Resp B/P (MAP) Pulse Ox O2 Delivery O2 Flow Rate FiO2 02/18/25 08:45 62 16 127/84 96 21 02/18/25 08:30 98.1 98.1 02/18/25 08:00 Room Air* 0 Intake/Output Intake and Output 02/18/25 07:00 Intake Total 1450 ml Balance 1450 ml Intake Oral 1300 ml IV Total 150 ml # Voids 5 Medications Current Medications Medications Dose Ordered Sig/Jessica Route Start Time Stop Time Status Last Admin Dose Admin Cefepime HCl 50 ml @ 12.5 mls/hr Q8H IV 02/15/25 20:00 02/18/25 11:40 12.5 MLS/HR Sodium Chloride 10 ml Q8HR IV 02/15/25 22:00 02/18/25 05:05 10 ML Ondansetron HCl 4 mg Q4HP PRN IV 02/15/25 16:15 Docusate Sodium 100 mg BIDPRN PRN PO 02/15/25 16:15 02/16/25 22:10 100 MG Acetaminophen 650 mg Q6HP PRN PO 02/15/25 16:15 Albuterol 2.5 mg Q4HPRN PRN NEB 02/15/25 16:15 Ipratropium [place] 0.5 mg Q4HPRN PRN NEB 02/15/25 16:15 Methylprednisolone Sodium Succinate 40 mg BID IV 02/15/25 22:00 02/18/25 08:42 40 MG Cyclobenzaprine HCl 5 mg BID PO 02/15/25 22:00 02/18/25 08:41 5 MG Gabapentin 300 mg BID PRN PO 02/15/25 16:15 02/16/25 13:57 300 MG Montelukast Sodium 10 mg HS PO 02/15/25 22:00 02/17/25 22:18 10 MG Oxycodone/ Acetaminophen 1 tab Q6HP PRN PO 02/15/25 17:00 02/18/25 08:41 1 TAB Melatonin 5 mg HS PO 02/16/25 22:00 02/18/25 00:17 5 MG Lactulose 30 ml Q8HP PO 02/17/25 22:00 02/18/25 05:05 30 ML Laboratory Results Laboratory Tests 02/17/25 05:09 Urinalysis Test 02/15/25 15:30 Urine Color Colorless (Yellow) Urine Clarity Clear (Clear) Urine pH 5.0 (5.0-9.0) Urine Specific [place] 1.007 (1.001-1.035) Urine Protein Negative (Negative) Urine Ketones Trace (Negative) Urine Blood Negative /uL (Negative) Urine Nitrite Negative (Negative) Urine Bilirubin Negative (Negative) Urine Urobilinogen Normal mg/dL (Negative) Urine Leukocyte Esterase Negative /uL (Negative) Urine RBC <1 /hpf (0 - 4) Urine Microscopic WBC < 1 /HPF (0-5) Urine Squamous Epithelial Cells None seen /hpf (<5) Urine Bacteria None seen /hpf (None Seen) Urine Glucose Normal mg/dL (Normal) Microbiology Microbiology Date/Time Source Procedure Growth Status 02/15/25 21:00 Nose MRSA Screen - Final Complete 02/15/25 11:30 Blood Blood Culture - Preliminary NO GROWTH AFTER 72 HOURS OF INCUBATION. Resulted Assessment/Plan My Orders Orders - HEATHER CLARK MD Procedure Category Date Status Time Lactulose Oral PHA 02/17/25 In Process 22:00 Discharge DISCHARGE 02/18/25 Transmitted 12:25 HEATHER CLARK MD Feb 18, 2025 12:27
[2025-02-18 12:48] VITALS: BP 126/77; PULSE 72; RESP 17; TEMP 98.4; O2SAT 97
== END 2025-02-18 15:53 | disposition home or self-care (01) | DRG 137 ==
LOC: ER 10:42 → OVERFLOW 16:02 → WEST WING 17:05
PROVIDERS: ADMIT Internal Medicine; ATTEND Internal Medicine
PROC: 05HA33Z Insertion of Infusion Device into Left Brachial Vein, Percutaneous Approach (ICD-10-PCS; principal; 2025-02-15)
PROC: 5A09357 Assistance with Respiratory Ventilation, Less than 24 Consecutive Hours, Continuous Positive Airway Pressure (ICD-10-PCS; 2025-02-15)
PROC: B54PZZA Ultrasonography of Bilateral Upper Extremity Veins, Guidance (ICD-10-PCS; 2025-02-17)
PROC: 05H933Z Insertion of Infusion Device into Right Brachial Vein, Percutaneous Approach (ICD-10-PCS; 2025-02-17)
DX: J15.69 Pneumonia due to other Gram-negative bacteria (principal); J96.00 Acute respiratory failure, unspecified whether with hypoxia or hypercapnia; R65.11 Systemic inflammatory response syndrome (SIRS) of non-infectious origin with acute organ dysfunction; E87.20 Acidosis, unspecified; J45.901 Unspecified asthma with (acute) exacerbation; J44.0 Chronic obstructive pulmonary disease with (acute) lower respiratory infection; J15.9 Unspecified bacterial pneumonia; J44.89 Other specified chronic obstructive pulmonary disease; F41.9 Anxiety disorder, unspecified; M54.50 Low back pain, unspecified; E87.6 Hypokalemia; G89.4 Chronic pain syndrome; E06.3 Autoimmune thyroiditis; E66.9 Obesity, unspecified; Z68.29 Body mass index [BMI] 29.0-29.9, adult; J38.3 Other diseases of vocal cords; R73.9 Hyperglycemia, unspecified; Z88.6 Allergy status to analgesic agent; Z88.8 Allergy status to other drugs, medicaments and biological substances; Z90.49 Acquired absence of other specified parts of digestive tract
CPT/HCPCS: 36415; 71045; 80048; 80053; 81001; 83605; 84484; 85025; 85610; 85730; 87040; 87081; 94644; 96365; 96375; 99291; G0378

== ENCOUNTER 2025-03-11 13:36 | Inpatient (IN) | payer MEDICAID ==
[2025-03-11] VITALS (7 sets, daily range): BP systolic 99–120; BP diastolic 71–73; PULSE 95–136; RESP 12–30; TEMP 98–98.2; O2SAT 97–100
[~2025-03-11] VITALS: Ht 171.4 cm; Wt 88.9 kg
[~2025-03-11 13:36] MED LIST changes: -ACET500T58 PO; +AZIT-185 PO; -BACDST PO; -BUPR5DIS TOP; -DOX100T PO; -LORA-483 PO; -PRED20TA2 PO
[2025-03-11] MEDS: IPRATROPIUM BROM 0.5 MG/2.5ML INH SOL HHN ONE (13:51)
[2025-03-11] MEDS: ALBUTEROL SULF 2.5 MG/0.5ML(0.5%) NEB SOLN HHN ONE (13:51)
[2025-03-11] MEDS: IPRATROPIUM BROM 0.5 MG/2.5ML INH SOL NEB ONE (13:51)
--- NOTE | 2025-03-11 13:51 | ED.PDOC ---
SOB-HPI HPI Comments 44 y/o female presents to the ED via EMS for chief complaint of shortness of breath.EMS [place] her simple mask when SOB exacerbated. Patient gave herself a dose of EPI pen prior to EMS arrival. EMS reports patient was found in her car Tripoding, cool, clammy to the touch and had a BP of 90/40. Patient was given 50mg of Benadryl, EPI, and then placed on C-Pap by EMS. Patient noted some relief but still presents SOB upon ED arrival. Per previous medical records, patient has been seen at this facility multiple times for same complaint, has a history of vocal cord paralysis and has been hospitalized and intubated in the past. Patient presents with CPAP and otherwise not able to answer any questions due to CPAP obstruction. No other complaints reported. Chief Complaint: Shortness of Breath Time Seen by MD: 13:34 Primary Care Provider: UNKNOWN Reviewed notes: Nurses Notes, Masseur/Masseuse Notes, Medications, Allergies Information Source: Emergency Med Personnel Mode of Arrival: EMS Severity: Moderate Timing: Hours Duration: Since onset Context: At Rest History of: Asthma Prehospital treatment: Breathing Tx, Oxygen, Treatment (50 grams of Benadryl ) Modifying Factors: Nothing Associated Signs and Symptoms: None Past Medical History PAST MEDICAL HISTORY: Anemia, Anxiety, Asthma, COPD, Thyroid Surgical History: Appendectomy, Cholecystectomy, , Tonsillectomy RENTAL REPRESENTATIVE History: Denies all RENTAL REPRESENTATIVE Hx Family History Family History: Unknown Social History Smoker: Unknown Alcohol: Unknown Drugs: Unknown Lives In: Home Unable to Obtain due to: Medical Urgency Physical Exam General Appearance: Moderate Distress HEENT: Normal ENT Inspection, Pharynx Normal, TMs Normal Neck: Full Range of Motion, Non-Tender, Normal, Normal Inspection Respiratory: Chest Non-Tender, Lungs Clear, No Accessory Muscle Use, No Respiratory Distress, Normal Breath Sounds Cardiovascular: No Edema, No JVD, No Murmur, No Gallop, Tachycardia Breast Exam: Deferred Gastrointestinal: No Organomegaly, Non Tender, No Pulsatile Mass, Normal Bowel Sounds, Soft Genitalia: Deferred Pelvic: Deferred Rectal: Deferred Extremities: No calf tenderness, Normal capillary refill, Normal inspection, Normal range of motion, Non-tender, No pedal edema Musculoskeletal : Apperance: Normal Neurologic: Alert, attending physician II-XII nml as Tested, No Motor Deficits, Normal Affect, Normal Mood, No Sensory Deficits Cerebellar Function: Normal Reflexes: Normal Skin: Dry, Normal Color, Warm Lymphatic: No Adenopathy EKG EKG : Pulse Rate (adult): 142 Cardiac Rhythm: ST Was a procedure done? Was a procedure done?: No Differential Dx Differential Diagnosis: Asthma, Bronchitis, COPD, Pneumonia, Respiratory Distress, URI X-Ray, Labs, Meds, VS Vital Signs Date Time Temp Pulse Resp B/P (MAP) Pulse Ox O2 Delivery O2 Flow Rate FiO2 03/11/25 16:00 123 03/11/25 15:50 98.2 127 14 120/73 98 2.0 28 98.2 03/11/25 15:00 98.2 125 24 120/73 (89) 96 98.2 03/11/25 13:51 142 03/11/25 13:42 136 30 100 Bi-Pap+ 100 100 03/11/25 13:41 98.2 138 30 143/88 (106) 100 98.2 03/11/25 13:40 142 03/11/25 13:39 141 143/88 Facial BiPAP Mask 100 03/11/25 13:36 98.2 140 32 172/98 (122) 98 98.2 Lab Test 03/11/25 15:06 03/11/25 14:50 03/11/25 14:10 Range/Units Troponin I High Sensitivity < 3 L < 3 L </=34 ng/L Blood Gas Specimen Type Arterial Blood Gas Sample Site Left radial Blood Gas Patient Temperature 37.0 Arterial Blood Date Drawn [id number] Arterial Blood pH 7.428 7.350-7.450 Arterial Blood Partial Pressure CO2 27.3 L 32.0-45.0 mmHg Arterial Blood Partial Pressure O2 374.4 *H 83.0-108.0 mmHg Arterial Blood HCO3 17.6 L 21.0-28.0 mmol/L Arterial Blood Oxygen Saturation 99.9 H 94.0-98.0 % Arterial Blood Base Excess -5.2 L -2.0-3.0 mmol/L Arterial Blood Oxyhemoglobin 98.6 H 94.0-98.0 % Arterial Blood Carboxyhemoglobin 0.5 0.5-1.5 % Arterial Blood Methemoglobin 0.8 0.0-1.5 % Giacomo Test Yes Blood Gas Total Hemoglobin 13.80 12.0-16.0 g/dL Blood Gas Set Respiration Rate 16.0 Blood Gas Modality Mask - bipap FiO2 % 75.0 Blood Gas EPAP 5 Blood Gas IPAP 12 Blood Gas Critical Value Read Back Yes Blood Gas Notified Whom Colin rojas Blood Gas Notified Time [id number] Blood Gas Notified By Ralph gonzalez White Blood Count 15.6 H 4.4-10.8 10^3/uL Red Blood Count 4.79 4.0-5.20 10^6/uL Hemoglobin 13.4 12.2-16.2 g/dL Hematocrit 40.3 36.0-46.0 % Mean Corpuscular Volume 84.2 80.0-100.0 fL Mean Corpuscular Hemoglobin 27.9 L 28.0-32.0 pg Mean Corpuscular Hemoglobin Concent 33.2 32.0-36.0 g/dL Red Cell Distribution Width 14.5 H 11.8-14.3 % Platelet Count 460 H 140-450 10^3/uL Mean Platelet Volume 7.5 6.9-10.8 fL Neutrophils (%) (Auto) 49.5 37.0-80.0 % Lymphocytes (%) (Auto) 43.4 10.0-50.0 % Monocytes (%) (Auto) 6.0 0.0-12.0 % Eosinophils (%) (Auto) 0.9 0.0-7.0 % Basophils (%) (Auto) 0.2 0.0-2.0 % Neutrophils # (Auto) 7.7 1.6-8.6 10 ^3/uL Lymphocytes # (Auto) 6.8 H 0.4-5.4 10 ^3/uL Monocytes # (Auto) 0.9 0-1.3 10 ^3/uL Eosinophils # (Auto) 0.1 0-0.8 10 ^3/uL Basophils # (Auto) 0 0-0.2 10 ^3/uL Nucleated Red Blood Cells 0.0 % Sodium Level 142 136-145 mmol/L Potassium Level 3.2 L 3.5-5.1 mmol/L Chloride Level 107 98-107 mmol/L Carbon Dioxide Level 20 20-31 mmol/L Anion Gap 15 5-15 Blood Urea Nitrogen 12 9-23 mg/dL Creatinine 0.80 0.550-1.02 mg/dL Glomerular Filtration Rate Calc 94 >90 mL/min BUN/Creatinine Ratio 15.0 10.0-20.0 Serum Glucose 245 H 74-106 mg/dL Hemoglobin A1c 5.0 <5.7 % A1C Calcium Level 9.8 8.7-10.4 mg/dL Current Medications Medications (Trade) Dose Ordered Sig/Jessica Route Start Time Stop Time Status Last Admin Methylprednisolone Sodium Succinate (Solu Medrol) 125 mg ONCE ONCE IV 03/11/25 13:45 03/11/25 13:46 DC 03/11/25 13:52 Ipratropium [place] (Atrovent Medneb) 1 mg ONCE ONCE HHN 03/11/25 13:45 03/11/25 14:01 DC 03/11/25 13:51 Albuterol (Ventolin Medneb) 20 mg ONCE ONCE HHN 03/11/25 13:45 03/11/25 14:01 DC 03/11/25 13:51 Ceftriaxone Sodium 50 ml @ 100 mls/hr ONCE ONCE IV 03/11/25 15:15 03/11/25 15:44 DC 03/11/25 15:23 Potassium Chloride (Klor-Con Tablet) 40 meq ONCE ONCE PO 03/11/25 15:15 03/11/25 15:17 DC 03/11/25 15:24 Oxycodone/ Acetaminophen (Percocet 5/ 325MG Tablet) 1 tab QIDPRN PRN PO 03/11/25 16:30 03/11/25 17:06 The chest x-ray is negative The patient was given Solu-Medrol 125 mg IV push upon arrival to the emergency department's The patient was starting to improve upon arrival to the emergency department's The patient was given albuterol and Atrovent as a continuous treatment. The patient was also started on Rocephin IV piggyback The patient was hypokalemic so was given potassium here in the emergency department's Patient was also given oxycodone for the pain Patient's chemistry panel shows a potassium evaluated got two which is why the patient did receive the potassium The patient is had a serum glucose of 245 The patient's CBC shows an elevated white blood cell count of 15.6 The patient is admitted Images Reviewed?: Images reviewed and evaluated by me Time of 1ST Reevaluation: 13:46 Reevaluation 1ST: Unchanged Time of 2ND Reevaluation: 17:29 Reevaluation 2ND: Unchanged Patient Education/Counseling: Diagnosis, Treatment, Prognosis Family Education/Counseling: No Family Present SEPSIS Sepsis Screen Date sepsis recognized/suspect: Mar 11, 2025 Time Sepsis recognized/suspect: 1343 Recent Procedure: No On Antibiotic Therapy: No Respiratory Rate >20: No Heart Rate >90: Yes Temp<36 C (96.8 F) or >38.3 C: No SBP <90 or MAP <65 mmHG: No New Acute Mental Status Change: No Is the patient on CPAP, BIPAP,: Yes Physician Orders Med Neb Initial Treatment (03/11/25 13:42) Heplock Iv (03/11/25 13:42) Pulse Oximetry (03/11/25 13:42) Domestic Laundry Worker (03/11/25 13:42) Blood Pressure (03/11/25 13:42) Electrocardigram (03/11/25 13:42) Electrocardigram (03/11/25 14:42) Electrocardigram (03/11/25 16:42) BIPAP (03/11/25 13:43) Abg W/ Co-Ox (03/11/25 14:30) Chest Portable (03/11/25 14:50) Montelukast Tablet (Singulair Tablet) (03/11/25 22:00) Levalbuterol Hcl (Xopenex Medneb) (03/11/25 18:00) Famotidine Injection (Pepcid Injection) (03/11/25 22:00) Methylprednisolone Sod Succ (Solu Medrol (03/11/25 22:00) Ceftriaxone 1gm/50ml D5w (Rocephin) (03/12/25 09:00) Allergies (03/11/25 15:05) Code Status (03/11/25 15:05) Sodium Chloride Lock (Saline Lock Ns) (03/11/25 22:00) Oxygen Per Hour (03/11/25 15:05) Hydrocodone-Acet 5/325mg Tab ([place] 5/32 (03/11/25 15:15) Ondansetron Hcl (Zofran) (03/11/25 15:15) Docusate Sodium Capsule (Colace Capsule) (03/11/25 15:15) Complete Blood Count (03/12/25 04:00) Comprehensive Metabolic Panel (03/12/25 04:00) Cardiac Diet-2gna,Lofat,Lochol (03/11/25 Dinner) Condition: Serious (03/11/25 15:05) Acetaminophen Tablet (Tylenol Tablet) (03/11/25 15:15) Bedrest With Bathroom Privileg (03/11/25 15:05) Sequential Compression Device (03/11/25 ) Oxycodone W/ Acet 5/325mg Tab (Percocet (03/11/25 16:30) Vital Signs Date Time Temp Pulse Resp B/P (MAP) Pulse Ox O2 Delivery O2 Flow Rate FiO2 03/11/25 16:00 123 03/11/25 15:50 98.2 127 14 120/73 98 2.0 28 98.2 03/11/25 15:00 98.2 125 24 120/73 (89) 96 98.2 03/11/25 13:51 142 03/11/25 13:42 136 30 100 Bi-Pap+ 100 100 03/11/25 13:41 98.2 138 30 143/88 (106) 100 98.2 03/11/25 13:40 142 03/11/25 13:39 141 143/88 Facial BiPAP Mask 100 03/11/25 13:36 98.2 140 32 172/98 (122) 98 98.2 Laboratory Tests Test 03/11/25 14:10 White Blood Count 15.6 10^3/uL (4.4-10.8) H Medications Medications Dose Ordered Sig/Jessica Route Start Time Stop Time Status Last Admin Dose Admin Albuterol 20 mg ONCE ONCE HHN 03/11/25 13:45 03/11/25 14:01 DC 03/11/25 13:51 Ceftriaxone Sodium 50 ml @ 100 mls/hr ONCE ONCE IV 03/11/25 15:15 03/11/25 15:44 DC 03/11/25 15:23 Ipratropium [place] 1 mg ONCE ONCE HHN 03/11/25 13:45 03/11/25 14:01 DC 03/11/25 13:51 Methylprednisolone Sodium Succinate 125 mg ONCE ONCE IV 03/11/25 13:45 03/11/25 13:46 DC 03/11/25 13:52 Oxycodone/ Acetaminophen 1 tab QIDPRN PRN PO 03/11/25 16:30 03/11/25 17:06 Potassium Chloride 40 meq ONCE ONCE PO 03/11/25 15:15 03/11/25 15:17 DC 03/11/25 15:24 Departure 1 Departure Time of Disposition: 17:28 Impression: Primary Impression: Acute respiratory failure Qualified Codes: J96.01 - Acute respiratory failure with hypoxia Additional Impressions: Acute asthma exacerbation Qualified Codes: J45.51 - Severe persistent asthma with (acute) exacerbation Hypokalemia Disposition: ADMITTED INPATIENT Admit to: Tele Condition: Fair Critical Care Note Critical Care Time?: Yes (35 min-critical care time only) Stability Stability form required: Yes Unstable for transfer: Telemetry monitoring (Telemetry monitoring required), ED Physician Assesment (Clinical assesment) I personally scribed for MELQUIADES MCKEON MD ([email or web address]) on 03/11/25 at 13:51. Electronically submitted by Gabriela Hoover ([facility]). MELQUIADES MCKEON MD Mar 11, 2025 13:51
[2025-03-11] MEDS: methylPREDNISolone SOD SUCC 125 MG/2 ML VL IV ONE (13:52)
[2025-03-11] MEDS: ALBUTEROL SULF 2.5 MG/0.5ML(0.5%) NEB SOLN NEB ONE (13:52)
[2025-03-11 14:22] LABS: Mean Corpuscular Hemoglobin 27.9 pg (28.0-32.0)
[2025-03-11 14:24] LABS: Hematocrit 40.3 % (36.0-46.0); Hemoglobin 13.4 g/dL (12.2-16.2); Mean Corpuscular Volume 84.2 fL (80.0-100.0); Nucleated Red Blood Cells % 0.0 %
[2025-03-11 14:29] LABS: Chloride 107 mmol/L (98-107); Sodium 142 mmol/L (136-145)
[2025-03-11 14:30] LABS: Anion Gap 15 (5-15)
[2025-03-11 14:31] LABS: Calcium 9.8 mg/dL (8.7-10.4)
[2025-03-11 14:32] LABS: Carbon Dioxide 20 mmol/L (20-31); Potassium 3.2 mmol/L (3.5-5.1)
[2025-03-11 14:36] LABS: BUN/Creatinine Ratio 15.0 (10.0-20.0); Blood Urea Nitrogen 12 mg/dL (9-23); Glucose 245 mg/dL (74-106)
[2025-03-11 14:56] LABS: Base Excess -5.2 mmol/L (-2.0-3.0)
[2025-03-11] MEDS ORDERED: ONDANSETRON HCL 4 MG/2 ML VIAL IV PRN (15:15)
[2025-03-11] MEDS ORDERED: ACETAMINOPHEN 325 MG TAB PO PRN (15:15)
[2025-03-11] MEDS ORDERED: DOCUSATE SOD 100 MG CAP PO PRN (15:15)
--- NOTE | 2025-03-11 15:21 | DVH ---
EXAM: XY CHEST PORTABLE HISTORY: sob COMPARISON: XY CHEST PORTABLE on DOS: 02/15/25, XY CHEST PORTABLE on DOS: 01/16/25, XY CHEST PORTABLE on DOS: 01/15/25, XY CHEST PORTABLE on DOS: 01/14/25, XY CHEST PORTABLE on DOS: 12/12/24 TECHNIQUE: Portable upright AP view of the chest was performed. FINDINGS: No pneumothorax, consolidative infiltrates, or pulmonary edema. The heart is not enlarged. IMPRESSION: No acute intrathoracic process.
[2025-03-11] MEDS: cefTRIAXone 1GM/50ML D5W 50 ML IV ONE (15:23)
[2025-03-11] MEDS: POTASSIUM CHL 20 Meq TABLET PO ONE (15:24)
[2025-03-11] MEDS ORDERED: MORPHINE SULFATE INJ 2 MG/ml SYRG IV PRN (16:45)
[2025-03-11] MEDS ORDERED: NITROGLYCERIN 0.4 MG SL TAB SL PRN (16:45)
--- NOTE | 2025-03-11 16:46 | DVHHP2 ---
History of Present Illness Reason for Visit: COPD with acute exacerbation History of Present Illness The patient is a 44-year-old female with past medical history of anxiety, anemia, asthma, COPD, and thyroid disease who presented to [facility] ED with complaint of shortness of breaths. As reported by EMS, [place] wearing her simple mask when COPD exacerbated, associated with hypotension, blood pressure 90/40, cool, and clammy. Patient was placed on CPAP with relief EN route to our facility ED. patient was seen and evaluated in the ED, laboratory data shows WBC 15.6, platelets 460, sodium 142, potassium 3.2, BUN 12, creatinine 0.80, glucose 245, hemoglobin A1c 5.0, calcium 9.8, troponin < 3, blood pressure 142/88, heart rate 142 trending down to 112, temperature 98.2 F, O2 saturation 99% on oxygen. Chest x-ray show no acute intrathoracic process. Patient was started on IV Solu- Medrol, please see medication orders section in the computer. On my assessment, patient denies chest pain, no headache, no dizziness, currently on oxygen, no nausea, no vomiting, no fever, no chills. Patient was admitted for further evaluation and medical review. Past Medical History Anemia, Anxiety, Asthma, COPD, Thyroid Past Surgical History Appendectomy, Cholecystectomy, , Tonsillectomy Family History Reviewed, noncontributory to the management of this case. Past Social History The patient lives at home, denies smoking, alcohol or illicit drugs abuse. Review of Systems Constitutional: No: Fever, Chills, Sweats, Weakness, Malaise, Other Eyes: No: Pain, Vision change, Conjunctivae inflammation, Eyelid inflammation, Other, Redness ENT: No: Ear pain, Ear discharge, Nose pain, Nose discharge, Nose congestion, Mouth pain, Mouth swelling, Throat pain, Throat swelling, Other Respiratory: Shortness of breath, SOB with excertion, Other (SOB at rest); No: Cough, Dry, Wheezing, Hemoptysis, Pleuritic Pain, Sputum, Wheezing Cardiovascular: No: Chest Pain, Palpitations, Orthopnea, Paroxysmal Noc. Dyspnea, Edema, Lt Headedness, Other Gastrointestinal: No: Nausea, Vomiting, Abdominal Pain, Diarrhea, Constipation, Melena, Hematochezia, Other Genitourinary: No Dysuria, No Frequency, No Incontinence, No Hematuria, No Retention, No Other Musculoskeletal: No: other, neck pain, shoulder pain, arm pain, back pain, hand pain, leg pain, foot pain Skin: No: Rash, Lesions, Jaundice, Bruising, Other Neurological: No: Weakness, Numbness, Incoordination, Change in speech, Confusion, Seizures, Other Allergies: Coded Allergies: Ibuprofen (Verified Allergy, Unknown, 04/25/23) Levothyroxine (Verified Allergy, Unknown, 04/25/23) Medications Current Medications Medications Dose Ordered Sig/Jessica Route Start Time Stop Time Status Last Admin Dose Admin Montelukast Sodium 10 mg HS PO 03/11/25 22:00 Levalbuterol HCl 1.25 mg Q6HR NEB 03/11/25 18:00 Famotidine 20 mg Q12HR IV 03/11/25 22:00 Methylprednisolone Sodium Succinate 40 mg Q8HR IV 03/11/25 22:00 Ceftriaxone Sodium 50 ml @ 100 mls/hr DAILY@09 IV 03/12/25 09:00 Sodium Chloride 10 ml Q8HR IV 03/11/25 22:00 Acetaminophen/ Hydrocodone Bitart 1 tab Q4HP PRN PO 03/11/25 15:15 Ondansetron HCl 4 mg Q4HP PRN IV 03/11/25 15:15 Docusate Sodium 100 mg BIDPRN PRN PO 03/11/25 15:15 Acetaminophen 650 mg Q6HP PRN PO 03/11/25 15:15 Oxycodone/ Acetaminophen 1 tab QIDPRN PRN PO 03/11/25 16:30 Exam Vital Signs Vital Signs Date Time Temp Pulse Resp B/P (MAP) Pulse Ox O2 Delivery O2 Flow Rate FiO2 03/11/25 15:50 98.2 127 14 120/73 98 2.0 28 98.2 03/11/25 13:42 Bi-Pap+ General Appearance: Alert, Oriented X3, Cooperative, No acute distress HEENT: Atraumatic, PERRLA, EOMI, Mucous membr. moist/pink Respiratory: Normal air movement Cardiovascular: Normal S1, Normal S2, No murmurs, Other (Irregular rate) Abdominal: Normal bowel sounds, Soft, No tenderness, No hepatospenomegaly, No masses Extremities: No clubbing, No cyanosis, No edema, Normal pulses, No tenderness/swelling Skin: No rashes, No breakdown, No significant lesion Neuro: Normal speech, Normal tone, Sensation intact, Cranial nerves 3-12 NL, Reflexes 2+, Other (Generalized weakness) Psych/Mental Status: Mental status NL, Mood NL Labs/Xrays Labs Test 03/11/25 15:06 03/11/25 14:50 03/11/25 14:10 Range/Units Troponin I High Sensitivity < 3 L </=34 ng/L Blood Gas Specimen Type Arterial Blood Gas Sample Site Left radial Blood Gas Patient Temperature 37.0 Arterial Blood Date Drawn [id number] Arterial Blood pH 7.428 7.350-7.450 Arterial Blood Partial Pressure CO2 27.3 L 32.0-45.0 mmHg Arterial Blood Partial Pressure O2 374.4 *H 83.0-108.0 mmHg Arterial Blood HCO3 17.6 L 21.0-28.0 mmol/L Arterial Blood Oxygen Saturation 99.9 H 94.0-98.0 % Arterial Blood Base Excess -5.2 L -2.0-3.0 mmol/L Arterial Blood Oxyhemoglobin 98.6 H 94.0-98.0 % Arterial Blood Carboxyhemoglobin 0.5 0.5-1.5 % Arterial Blood Methemoglobin 0.8 0.0-1.5 % Giacomo Test Yes Blood Gas Total Hemoglobin 13.80 12.0-16.0 g/dL Blood Gas Set Respiration Rate 16.0 Blood Gas Modality Mask - bipap FiO2 % 75.0 Blood Gas EPAP 5 Blood Gas IPAP 12 Blood Gas Critical Value Read Back Yes Blood Gas Notified Whom Colin rojas Blood Gas Notified Time [id number] Blood Gas Notified By Ralph doctor of naturopathic medicine White Blood Count 15.6 H 4.4-10.8 10^3/uL Red Blood Count 4.79 4.0-5.20 10^6/uL Hemoglobin 13.4 12.2-16.2 g/dL Hematocrit 40.3 36.0-46.0 % Mean Corpuscular Volume 84.2 80.0-100.0 fL Mean Corpuscular Hemoglobin 27.9 L 28.0-32.0 pg Mean Corpuscular Hemoglobin Concent 33.2 32.0-36.0 g/dL Red Cell Distribution Width 14.5 H 11.8-14.3 % Platelet Count 460 H 140-450 10^3/uL Mean Platelet Volume 7.5 6.9-10.8 fL Neutrophils (%) (Auto) 49.5 37.0-80.0 % Lymphocytes (%) (Auto) 43.4 10.0-50.0 % Monocytes (%) (Auto) 6.0 0.0-12.0 % Eosinophils (%) (Auto) 0.9 0.0-7.0 % Basophils (%) (Auto) 0.2 0.0-2.0 % Neutrophils # (Auto) 7.7 1.6-8.6 10 ^3/uL Lymphocytes # (Auto) 6.8 H 0.4-5.4 10 ^3/uL Monocytes # (Auto) 0.9 0-1.3 10 ^3/uL Eosinophils # (Auto) 0.1 0-0.8 10 ^3/uL Basophils # (Auto) 0 0-0.2 10 ^3/uL Nucleated Red Blood Cells 0.0 % Sodium Level 142 136-145 mmol/L Potassium Level 3.2 L 3.5-5.1 mmol/L Chloride Level 107 98-107 mmol/L Carbon Dioxide Level 20 20-31 mmol/L Anion Gap 15 5-15 Blood Urea Nitrogen 12 9-23 mg/dL Creatinine 0.80 0.550-1.02 mg/dL Glomerular Filtration Rate Calc 94 >90 mL/min BUN/Creatinine Ratio 15.0 10.0-20.0 Serum Glucose 245 H 74-106 mg/dL Hemoglobin A1c 5.0 <5.7 % A1C Calcium Level 9.8 8.7-10.4 mg/dL PATIENT: INGRID WAGGONERT: [id number] UNIT: [id number] : 1980 LOC: ER ROOM / BED: / AGE / SEX: 44 / F ADM STATUS: REG ER SERVICE [id number] ORDERING PHYSICIAN: MELQUIADES MCKEON MD PROCEDURE(s): CXRP - CHEST PORTABLE REASON: sob ORDER NUMBER(s): [id number], ACCESSION NUMBER(s): [id number] EXAM: XY CHEST PORTABLE HISTORY: sob COMPARISON: XY CHEST PORTABLE on DOS: 02/15/25, XY CHEST PORTABLE on DOS: 01/16/25, XY CHEST PORTABLE on DOS: 01/15/25, XY CHEST PORTABLE on DOS: 01/14/25, XY CHEST PORTABLE on DOS: 12/12/24 TECHNIQUE: Portable upright AP view of the chest was performed. FINDINGS: No pneumothorax, consolidative infiltrates, or pulmonary edema. The heart is not enlarged. IMPRESSION: No acute intrathoracic process. SEPSIS Sepsis Screen Date sepsis recognized/suspect: Mar 11, 2025 Time Sepsis recognized/suspect: 1343 Recent Procedure: No On Antibiotic Therapy: No Respiratory Rate >20: No Heart Rate >90: Yes Temp<36 C (96.8 F) or >38.3 C: No SBP <90 or MAP <65 mmHG: No New Acute Mental Status Change: No Is the patient on CPAP, BIPAP,: Yes Physician Orders Med Neb Initial Treatment (03/11/25 13:42) Heplock Iv (03/11/25 13:42) Pulse Oximetry (03/11/25 13:42) Sweatband Decorating Machine Operator (03/11/25 13:42) Blood Pressure (03/11/25 13:42) Electrocardigram (03/11/25 13:42) Troponin-I Hs (03/11/25 16:42) Electrocardigram (03/11/25 14:42) Electrocardigram (03/11/25 16:42) BIPAP (03/11/25 13:43) Abg W/ Co-Ox (03/11/25 14:30) Chest Portable (03/11/25 14:50) Montelukast Tablet (Singulair Tablet) (03/11/25 22:00) Levalbuterol Hcl (Xopenex Medneb) (03/11/25 18:00) Famotidine Injection (Pepcid Injection) (03/11/25 22:00) Methylprednisolone Sod Succ (Solu Medrol (03/11/25 22:00) Ceftriaxone 1gm/50ml D5w (Rocephin) (03/12/25 09:00) Allergies (03/11/25 15:05) Code Status (03/11/25 15:05) Sodium Chloride Lock (Saline Lock Ns) (03/11/25 22:00) Oxygen Per Hour (03/11/25 15:05) Hydrocodone-Acet 5/325mg Tab ([place] 5/32 (03/11/25 15:15) Ondansetron Hcl (Zofran) (03/11/25 15:15) Docusate Sodium Capsule (Colace Capsule) (03/11/25 15:15) Complete Blood Count (03/12/25 04:00) Comprehensive Metabolic Panel (03/12/25 04:00) Cardiac Diet-2gna,Lofat,Lochol (03/11/25 Dinner) Condition: Serious (03/11/25 15:05) Acetaminophen Tablet (Tylenol Tablet) (03/11/25 15:15) Bedrest With Bathroom Privileg (03/11/25 15:05) Sequential Compression Device (03/11/25 ) Oxycodone W/ Acet 5/325mg Tab (Percocet (03/11/25 16:30) Vital Signs Date Time Temp Pulse Resp B/P (MAP) Pulse Ox O2 Delivery O2 Flow Rate FiO2 03/11/25 15:50 98.2 127 14 120/73 98 2.0 28 98.2 03/11/25 15:00 98.2 125 24 120/73 (89) 96 98.2 03/11/25 13:51 142 03/11/25 13:42 136 30 100 Bi-Pap+ 100 100 03/11/25 13:41 98.2 138 30 143/88 (106) 100 98.2 03/11/25 13:40 142 03/11/25 13:39 141 143/88 Facial BiPAP Mask 100 03/11/25 13:36 98.2 140 32 172/98 (122) 98 98.2 Laboratory Tests Test 03/11/25 14:10 White Blood Count 15.6 10^3/uL (4.4-10.8) H Medications Medications Dose Ordered Sig/Jessica Route Start Time Stop Time Status Last Admin Dose Admin Albuterol 20 mg ONCE ONCE N 03/11/25 13:45 03/11/25 14:01 DC 03/11/25 13:51 20 MG Ceftriaxone Sodium 50 ml @ 100 mls/hr ONCE ONCE IV 03/11/25 15:15 03/11/25 15:44 DC 03/11/25 15:23 100 MLS/HR Ipratropium [place] 1 mg ONCE ONCE HHN 03/11/25 13:45 03/11/25 14:01 DC 03/11/25 13:51 1 MG Methylprednisolone Sodium Succinate 125 mg ONCE ONCE IV 03/11/25 13:45 03/11/25 13:46 DC 03/11/25 13:52 125 MG Potassium Chloride 40 meq ONCE ONCE PO 03/11/25 15:15 03/11/25 15:17 DC 03/11/25 15:24 40 MEQ Assessment/Plan Assessment/Plan Acute respiratory failure Hypokalemia Hyperglycemia Acute respiratory failure with hypoxia Acute asthma exacerbation Severe persistent asthma with (acute) exacerbation Leukocytosis, unspecified Plan 1. Admit to telemetry unit 2. Breathing treatment 3. Pain control management 4. Management of fluids and electrolytes 5. Consultation for hospitalist 6. Diagnostic tests chest x-ray 7. DVT prophylaxis-on SCDs 8. Repeat labs CBC, CMP in a.m. 9. Continue with current medical management 10. Treatment plan discussed with patient and RN. Patient verbalized understanding. Plan discussed with: Patient, Other (RN) My Orders Orders - HERBIE MOORE DNP Procedure Category Date Status Time Montelukast Tablet PHA 03/11/25 In Process (Singulair Tablet) 22:00 Levalbuterol Hcl PHA 03/11/25 In Process (Xopenex Medneb) 18:00 Famotidine Injection PHA 03/11/25 In Process (Pepcid Injection) 22:00 Methylprednisolone PHA 03/11/25 In Process Sod Succ (Solu Medrol 22:00 Ceftriaxone 1gm/50ml PHA 03/12/25 In Process D5w (Rocephin) 09:00 Allergies TARAN 03/11/25 In Process 15:05 Code Status CODE 03/11/25 Transmitted 15:05 Sodium Chloride Lock PHA 03/11/25 In Process (Saline Lock Ns) 22:00 Oxygen Per Hour RT 03/11/25 Transmitted 15:05 Hydrocodone-Acet PHA 03/11/25 In Process 5/325mg Tab ([place] 15:15 Ondansetron Hcl PHA 03/11/25 In Process (Zofran) 15:15 Docusate Sodium PHA 03/11/25 In Process Capsule (Colace 15:15 Complete Blood Count LAB 03/12/25 Verified 04:00 Comprehensive LAB 03/12/25 Verified Metabolic Panel 04:00 Cardiac DIET 03/11/25 Transmitted Diet-2gna,Lofat,Lochol Dinner Condition: Serious TARAN 03/11/25 In Process 15:05 Acetaminophen Tablet [facility] WITH [facility] 03/11/25 In Process (Tylenol Tablet) 15:15 Bedrest With Bathroom [facility] 03/11/25 In Process Privileg 15:05 Sequential [facility] 03/11/25 In Process Compression Device Oxycodone W/ Acet MERGED WITH [facility] 03/11/25 In Process 5/325mg Tab (Percocet 16:30 Problem List: (1) Acute respiratory failure (2) Hypokalemia (3) Hyperglycemia (4) Acute respiratory failure with hypoxia (5) Acute asthma exacerbation (6) Severe persistent asthma with (acute) exacerbation (7) Leukocytosis, unspecified Date of Service: Mar 11, 2025 Billing Provider: HERBIE MOORE DNP Common Visit Codes: [id number] INP/OBS CARE (HIGH) HERBIE MOORE DNP Mar 11, 2025 16:46
[2025-03-11] MEDS: OXYCODONE W/ ACETAMINOPHEN 5/325MG TABLET PO PRN ×2 (17:06→23:17)
[2025-03-11] MEDS: HYDROcodone-ACET 5/325MG TAB PO PRN (19:24)
[2025-03-11] MEDS: LEVALBUTEROL HCL 1.25 MG/3 ML NEB NEB SCH (19:37)
[2025-03-11] MEDS: FAMOTIDINE (10MG/ML) 2ML VL IV SCH (21:24)
[2025-03-11] MEDS: methylPREDNISolone SOD SUCC 40 MG/ML VL IV SCH (21:26)
[2025-03-11] MEDS: MONTELUKAST SODIUM 10 MG TAB PO SCH (21:35)
[2025-03-11] MEDS: SODIUM CHLOR 0.9% PF (SALINE LOCK) 10ML VIAL/SYR IV SCH (21:37)
[2025-03-11] MEDS: MELATONIN 5 MG TAB PO ONE (22:36)
[2025-03-12] VITALS (18 sets, daily range): BP systolic 98–131; BP diastolic 51–76; PULSE 73–108; RESP 14–22; TEMP 97.5–98.2; O2SAT 94–100
[2025-03-12 06:32] LABS: Hematocrit 37.5 % (36.0-46.0); Hemoglobin 12.8 g/dL (12.2-16.2); Mean Corpuscular Hemoglobin 28.5 pg (28.0-32.0); Mean Corpuscular Volume 83.2 fL (80.0-100.0); Nucleated Red Blood Cells % 0.0 %
[2025-03-12 06:40] LABS: Alanine Aminotransferase 16 U/L (7-40); Albumin 4.7 g/dL (3.2-4.8); Alkaline Phosphatase 93 U/L (46-116); Anion Gap 11 (5-15); BUN/Creatinine Ratio 13.5 (10.0-20.0); Blood Urea Nitrogen 10 mg/dL (9-23); Calcium 10.0 mg/dL (8.7-10.4); Carbon Dioxide 20 mmol/L (20-31); Potassium 4.6 mmol/L (3.5-5.1); Sodium 140 mmol/L (136-145); Total Protein 6.8 g/dL (5.7-8.2)
[2025-03-12 06:45] LABS: Bilirubin, Total 0.2 mg/dL (0.2-1.0); Chloride 109 mmol/L (98-107); Glucose 149 mg/dL (74-106)
--- NOTE | 2025-03-12 07:26 | ECG ---
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
[2025-03-12] MEDS: methylPREDNISolone SOD SUCC 40 MG/ML VL IV SCH (09:11)
[2025-03-12] MEDS: cefTRIAXone 1GM/50ML D5W 50 ML IV SCH (09:11)
[2025-03-12] MEDS: SODIUM CHLORIDE 0.9% 500 ML IV ONE (09:43)
[2025-03-12] MEDS ORDERED: AZITHROMYCIN 500MG/ 250ML 250 ML IV SCH (10:00)
[2025-03-12] MEDS ORDERED: IPRATROPIUM BROM 0.5 MG/2.5ML INH SOL NEB SCH (10:00)
[2025-03-12 10:06] LABS: Lactic Acid w/Reflex 3.4 mmol/L (0.4-2.0)
[2025-03-12] MEDS: IPRATROPIUM BROM 0.5 MG/2.5ML INH SOL NEB SCH (11:37)
[2025-03-12] MEDS: OXYCODONE W/ ACETAMINOPHEN 5/325MG TABLET PO ONE (13:46)
[2025-03-12] MEDS: MORPHINE SULFATE INJ 2 MG/ml SYRG IV ONE (14:29)
[2025-03-12] MEDS: OXYCODONE W/ ACETAMINOPHEN 5/325MG TABLET PO SCH (15:57)
[2025-03-12] MEDS ORDERED: OXYCODONE W/ ACETAMINOPHEN 5/325MG TABLET PO SCH (18:00)
--- NOTE | 2025-03-12 19:39 | DVHPNRES ---
Progress Note Date Seen: Mar 12, 2025 Resident Creating Document: MARKUS VALENZUELA RESIDENT Medical Necessity Reason Pt with a Central, PICC or Fol: No Subjective Review of Systems This is a 44-year-old female with past medical history of vocal cord dysfunction, asthma, spina bifida, Koki disease, osteoporosis, presented to the hospital with chief complaint of shortness of breaths. She also complains of difficulty breathing since yesterday noon, with feeling of somebody grasping her by neck. She also complains of cough 2 days back, dry, resolved now, fatigue, constipation on and off. She complains of previous episodes of shortness of breaths and difficulty breathing, last 1 was 1 month back. During this time, she used an inhaler, EpiPen to help breathing. EMS administered her EpiPen, CPAP and Benadryl on the way. In the initial labs showed increased WBC, platelet count, low-sodium. She had tachycardia and tachypnea on admission. She was treated with IV Medrol, breathing therapy. Previous hospitalization: Ventilated in January 2025. On January 16 presented with similar complaint PMHx: Vocal cord dysfunction, asthma, spina bifida, Koki disease, osteoporosis PSHx: Appendectomy, cholecystectomy, Social history: No smoking, alcohol, recreational drug use. Lives in home Home medication: Percocet, Flexeril, vitamin-D, iron, gabapentin, albuterol p.r.n. ROS: Constitutional: Denies weight loss, fever and chills. HEENT: Throat discomfort. Denies changes in vision and hearing. Respiratory: Shortness of breath, difficulty breathing and cough Cardiovascular: Denies chest discomfort or palpitations GI: Denies abdominal pain, nausea, vomiting and diarrhea. : Denies dysuria and urinary frequency. Musculoskeletal: Denies myalgias and joint pain Skin: Denies rash and pruritus. Neurological: Denies dizziness, headache, vision or hearing problems She was examined at bedside today. Continues to complain of throat pain. No new complaints. We will continue to monitor and manage. Objective vital signs Vital Sign Date Time Temp Pulse Resp B/P (MAP) Pulse Ox O2 Delivery O2 Flow Rate FiO2 03/12/25 16:47 98.0 91 22 125/71 (89) 97 98.0 03/12/25 11:37 Room Air 03/12/25 11:37 0 21 Total Intake and Output 03/11/25 03/11/25 03/12/25 15:00 23:00 07:00 Intake Total 50 ml 600 ml Balance 50 ml 600 ml medications Current Medications Medications Dose Ordered Sig/Jessica Route Start Time Stop Time Status Last Admin Dose Admin Montelukast Sodium 10 mg HS PO 03/11/25 22:00 03/11/25 21:35 10 MG Levalbuterol HCl 1.25 mg Q6HR NEB 03/11/25 18:00 03/12/25 11:37 1.25 MG Famotidine 20 mg Q12HR IV 03/11/25 22:00 03/12/25 09:11 20 MG Sodium Chloride 10 ml Q8HR IV 03/11/25 22:00 03/12/25 13:46 10 ML Ondansetron HCl 4 mg Q4HP PRN IV 03/11/25 15:15 Docusate Sodium 100 mg BIDPRN PRN PO 03/11/25 15:15 Acetaminophen 650 mg Q6HP PRN PO 03/11/25 15:15 Ipratropium [place] 0.5 mg Q6HR NEB 03/12/25 12:00 03/12/25 11:37 0.5 MG Prednisone 40 mg DAILY PO 03/13/25 10:00 Oxycodone/ Acetaminophen 2 tab Q6HR PO 03/12/25 14:15 03/12/25 15:57 2 TAB Examination General Appearance: Alert, Oriented X3, Cooperative, No acute distress HEENT: Atraumatic, PERRLA, EOMI, Mucous membrane moist/pink Respiratory: Clear to auscultation, Normal air movement Cardiovascular: Regular rate, Normal S1, Normal S2, No murmurs, no chest wall tenderness Abdominal: Normal bowel sounds, Soft, No tenderness, No hepatospenomegaly, No masses Extremities: No clubbing, No cyanosis, No edema, Normal pulses, No tenderness/swelling Skin: No rashes, No breakdown, No significant lesion Neuro: Normal gait, Normal speech, Strength at 5/5 X4 ext, Normal tone, Sensation intact, Cranial nerves 3-12 NL, Reflexes 2+ Psych/Mental Status: Mental status NL, Mood NL laboratory and microbiology Laboratory Tests 03/12/25 05:54 Test 03/12/25 05:54 Range/Units Serum Glucose 149 H 74-106 mg/dL Microbiology Date/Time Source Procedure Growth Status 03/11/25 23:15 Nose MRSA Screen - Final Complete Labs and/or images reviewed: Labs reviewed by me, Image(s) reviewed by me Problem List/Assessment/Plan Problem List/Assessment/Plan Acute hypoxic respiratory failure, likely due to asthma exacerbation/vocal cord dysfunction Asthma exacerbation Vocal cord dysfunction History of intubation due to asthma exacerbation Lactic acidosis * IV steroids> changed to oral prednisone 40 mg daily * Breathing treatment * Oxygen through nasal cannula * Montelukast Koki disease * Ordered TSH History of osteoporosis History of COPD Hx of sciatic disease History of spina bifida * Continue home pain meds DIET: Cardiac diet DVT PROPHYLAXIS: Lovenox CODE STATUS: Goal of care discussed for more than 18 minutes, full code DISPOSITION: Med/surge Patient's status and plan discussed with the patient. Case discussed with Dr. Muniz. Plan discussed with: Patient, Other (RN) My Orders My Orders Orders - MARKUS VALENZUELA RESIDENT Procedure Category Date Status Time Thyroid Stimulating LAB 03/12/25 Logged Hormone 19:12 Date of Service: Mar 12, 2025 Billing Provider: BORIS MUNIZ MD Common Visit Codes: [id number] INP/OBS CARE(HIGH) MARKUS VALENZUELA RESIDENT Mar 12, 2025 19:39 JAY FIGUEREDO RESIDENT Mar 13, 2025 14:12 BORIS MUNIZ MD Mar 14, 2025 13:47
[2025-03-12] MEDS: ENOXAPARIN SOD 40 MG/0.4 ML SYRINGE SC ONE (20:20)
[2025-03-12 21:31] LABS: Chloride 105 mmol/L (98-107); Potassium 3.8 mmol/L (3.5-5.1); Sodium 139 mmol/L (136-145)
[2025-03-12 21:32] LABS: Anion Gap 12 (5-15); Calcium 10.1 mg/dL (8.7-10.4); Carbon Dioxide 22 mmol/L (20-31)
[2025-03-12 21:37] LABS: BUN/Creatinine Ratio 12.5 (10.0-20.0); Blood Urea Nitrogen 10 mg/dL (9-23)
[2025-03-12 21:54] LABS: Glucose 190 mg/dL (74-106)
[2025-03-13] VITALS (9 sets, daily range): BP systolic 92–117; BP diastolic 56–73; PULSE 70–85; RESP 16–18; TEMP 97.5–98.7; O2SAT 94–100
[2025-03-13 08:05] LABS: COVID19 ANTIGEN SOFIA FIA NEGATIVE (NEGATIVE)
[2025-03-13] MEDS: predniSONE 20 MG TAB PO SCH (09:42)
[2025-03-13] MEDS: ENOXAPARIN SOD 40 MG/0.4 ML SYRINGE SC SCH (09:47)
[2025-03-13 11:04] LABS: Hepatitis B Surface Antigen Negative (Negative); Hepatitis C Antibody Negative (Negative)
--- NOTE | 2025-03-13 13:35 | DVHDSRES ---
Discharge Summary Date of Admission Resident Creating Document: MARKUS VALENZUELA RESIDENT Mar 11, 2025 at 16:44 Date of Discharge: Mar 13, 2025 Admitting Diagnosis Acute respiratory failure with hypoxia due to acute asthma exacerbation/ Severe persistent asthma with (acute) exacerbation Wounds: No large wounds Labs/Diagnostic Data: Laboratory Results Test 03/13/25 06:30 03/13/25 06:16 03/12/25 20:54 03/12/25 11:39 Influenza Type A Antigen Negative (Negative) Influenza Type B Antigen Negative (Negative) SARS-CoV-2 Antigen (Rapid) Negative (NEGATIVE) Thyroid Stimulating Hormone (TSH) 1.32 uIU/mL (0.55-4.78) Sodium Level 139 mmol/L (136-145) Potassium Level 3.8 mmol/L (3.5-5.1) Chloride Level 105 mmol/L (98-107) Carbon Dioxide Level 22 mmol/L (20-31) Anion Gap 12 (5-15) Blood Urea Nitrogen 10 mg/dL (9-23) Creatinine 0.80 mg/dL (0.550-1.02) Glomerular Filtration Rate Calc 94 mL/min (>90) BUN/Creatinine Ratio 12.5 (10.0-20.0) Serum Glucose 190 mg/dL (74-106) Calcium Level 10.1 mg/dL (8.7-10.4) Lactic Acid Level 3.1 mmol/L (0.4-2.0) Test 03/12/25 05:54 03/11/25 15:06 03/11/25 14:50 03/11/25 14:10 White Blood Count 8.4 10^3/uL (4.4-10.8) Red Blood Count 4.50 10^6/uL (4.0-5.20) Hemoglobin 12.8 g/dL (12.2-16.2) Hematocrit 37.5 % (36.0-46.0) Mean Corpuscular Volume 83.2 fL (80.0-100.0) Mean Corpuscular Hemoglobin 28.5 pg (28.0-32.0) Mean Corpuscular Hemoglobin Concent 34.2 g/dL (32.0-36.0) Red Cell Distribution Width 14.7 % (11.8-14.3) Platelet Count 369 10^3/uL (140-450) Mean Platelet Volume 7.3 fL (6.9-10.8) Neutrophils (%) (Auto) 84.6 % (37.0-80.0) Lymphocytes (%) (Auto) 13.8 % (10.0-50.0) Monocytes (%) (Auto) 1.5 % (0.0-12.0) Eosinophils (%) (Auto) 0.0 % (0.0-7.0) Basophils (%) (Auto) 0.1 % (0.0-2.0) Neutrophils # (Auto) 7.1 10 ^3/uL (1.6-8.6) Lymphocytes # (Auto) 1.2 10 ^3/uL (0.4-5.4) Monocytes # (Auto) 0.1 10 ^3/uL (0-1.3) Eosinophils # (Auto) 0 10 ^3/uL (0-0.8) Basophils # (Auto) 0 10 ^3/uL (0-0.2) Nucleated Red Blood Cells 0.0 % Total Bilirubin 0.2 mg/dL (0.2-1.0) Aspartate Amino Transferase (AST) 19 U/L (13-40) Alanine Aminotransferase (ALT) 16 U/L (7-40) Alkaline Phosphatase 93 U/L (46-116) Total Protein 6.8 g/dL (5.7-8.2) Albumin 4.7 g/dL (3.2-4.8) Troponin I High Sensitivity < 3 ng/L (</=34) Blood Gas Specimen Type Arterial Blood Gas Sample Site Left radial Blood Gas Patient Temperature 37.0 Arterial Blood Date Drawn [id number] Arterial Blood pH 7.428 (7.350-7.450) Arterial Blood Partial Pressure CO2 27.3 mmHg (32.0-45.0) Arterial Blood Partial Pressure O2 374.4 mmHg (83.0-108.0) Arterial Blood HCO3 17.6 mmol/L (21.0-28.0) Arterial Blood Oxygen Saturation 99.9 % (94.0-98.0) Arterial Blood Base Excess -5.2 mmol/L (-2.0-3.0) Arterial Blood Oxyhemoglobin 98.6 % (94.0-98.0) Arterial Blood Carboxyhemoglobin 0.5 % (0.5-1.5) Arterial Blood Methemoglobin 0.8 % (0.0-1.5) Giacomo Test Yes Blood Gas Total Hemoglobin 13.80 g/dL (12.0-16.0) Blood Gas Set Respiration Rate 16.0 Blood Gas Modality Mask - bipap FiO2 % 75.0 Blood Gas EPAP 5 Blood Gas IPAP 12 Blood Gas Critical Value Read Back Yes Blood Gas Notified Whom Colin rojas Blood Gas Notified Time [id number] Blood Gas Notified By Ralph gonzalez Hemoglobin A1c 5.0 % A1C (<5.7) Hepatitis B Surface Antigen Negative (Negative) Hepatitis C Antibody Negative (Negative) Other Laboratory Tests 03/12/25 20:54 03/12/25 05:54 Brief Hx & Hospital Course: Sammie Haas is a 44-year-old female with past medical history of vocal cord dysfunction, asthma, spina bifida, Koki disease, osteoporosis, presented to the hospital with chief complaint of shortness of breaths. She also complained of difficulty breathing, with feeling of somebody grasping her by neck. She complained of previous episodes of shortness of breaths and difficulty breathing, previous episode was 1 month back. She was previously hospitalized and ventilated in January of 2025 for similar complaint. She also complained of cough 2 days back, dry, resolved now, fatigue, constipation on and off. During the episode. before arrival of EMS, she used an inhaler, EpiPen to help breathing. EMS administered her EpiPen, CPAP and Benadryl on the way. In the initial labs showed increased WBC, platelet count, low-sodium. She had tachycardia and tachypnea on admission. During her stay, she was treated with IV Medrol, breathing therapy. Her vitals eventually stabilized, and symptoms resolved. She is stable for discharge on steroids for 3 days, and we will closely follow with ENT outpatient. Consults/Reason for consult No consults Operations or Procedures XY CHEST PORTABLE HISTORY: sob COMPARISON: XY CHEST PORTABLE on DOS: 02/15/25, XY CHEST PORTABLE on DOS: 01/16/25, XY CHEST PORTABLE on DOS: 01/15/25, XY CHEST PORTABLE on DOS: 01/14/25, XY CHEST PORTABLE on DOS: 12/12/24 TECHNIQUE: Portable upright AP view of the chest was performed. FINDINGS: No pneumothorax, consolidative infiltrates, or pulmonary edema. The heart is not enlarged. IMPRESSION: No acute intrathoracic process. Condition at Discharge: Stable Final Diagnosis/Problems List Acute hypoxic respiratory failure, likely due to asthma exacerbation/vocal cord dysfunction Asthma exacerbation Vocal cord dysfunction History of intubation due to asthma exacerbation Lactic acidosis Koki disease History of osteoporosis History of COPD Hx of sciatic disease History of spina bifida Hypokalemia, Hyperglycemia on admission Discharge Disposition: Home Discharge Instruct/Medications Diet: Cardiac 2g Na,low cholest Activity: No Restrictions, As Tolerated Follow Up/Referral: pcp Medications: as per ehr Care Plan: Continue methylprednisolone 40 mg daily. Follow-up with PCP in 1 week. Follow closely with ENT outpatient. Scheduled Cholecalciferol (Vitamin D3), 5,000 UNIT OR QWEEKLY, (Reported) Cyclobenzaprine Hcl (Cyclobenzaprine Hcl), 5 MG PO BID, (Reported) Docusate Sodium (Colace), 100 MG PO DAILY, (Reported) Ferrous Sulfate (Ferosul), 325 PO DAILY, (Reported) Montelukast Sodium (Montelukast Sodium), 1 TAB PO DAILY, (Reported) Prednisone (Prednisone), 40 MG PO DAILY Scheduled PRN Albuterol Sulfate (Ventolin), 2.5 MG NEB Q4HPRN PRN Gabapentin (Gabapentin), 300 MG PO BID PRN for NEUROPATHRY LEG PAIN, (Reported) Oxycodone W/ Acetaminophen (Apap/Oxycodone), 1 TAB PO QID PRN for BACK PAIN,, (Reported) Discharge Statement: "Patient was advised to return to the ER or call 911 if any headaches, dizziness, shortness of breath, chest pain, abdominal pain, bleeding, fevers, or worsening of medical condition. Patient was counseled about treatment plan, medications, possible side effects, patientverbalized understanding. All questions were answered to the best of my ability. This discharge took greater then 30 minutes in planning, reviewing documentation, counseling the patient, and discussing with other team members." ASSESSMENT ASSESSMENT Assessment COPD with acute exacerbation Date of Service: Mar 13, 2025 Billing Provider: BORIS MUNIZ MD Common Visit Codes: 40148-HAN/OBS DISCH DAY >30min MARKUS VALENZUELA RESIDENT Mar 13, 2025 13:35 BORIS MUNIZ MD Mar 14, 2025 13:57
[2025-03-13] MEDS ORDERED: PRED20TA2 PO (14:09)
== END 2025-03-13 14:28 | disposition home or self-care (01) | DRG 140 ==
LOC: ER 13:36 → EDBD 13:36 → OVERFLOW 16:44 → TELE-CENTR 20:55 → CENTRAL 03-13 02:37
PROVIDERS: ADMIT Student in an Organized Health Care Education/Training Program; ATTEND Student in an Organized Health Care Education/Training Program
PROC: 5A09357 Assistance with Respiratory Ventilation, Less than 24 Consecutive Hours, Continuous Positive Airway Pressure (ICD-10-PCS; principal; 2025-03-11)
DX: J44.1 Chronic obstructive pulmonary disease with (acute) exacerbation (principal); J96.01 Acute respiratory failure with hypoxia; E87.20 Acidosis, unspecified; J38.3 Other diseases of vocal cords; J45.51 Severe persistent asthma with (acute) exacerbation; E87.6 Hypokalemia; D72.829 Elevated white blood cell count, unspecified; R73.9 Hyperglycemia, unspecified; F41.9 Anxiety disorder, unspecified; M81.0 Age-related osteoporosis without current pathological fracture; Z88.6 Allergy status to analgesic agent; Z98.891 History of uterine scar from previous surgery; Z90.49 Acquired absence of other specified parts of digestive tract; Z79.899 Other long term (current) drug therapy
CPT/HCPCS: 36415; 36600; 71045; 80048; 80053; 82805; 83036; 83605; 84443; 84484; 85025; 86803; 87040; 87081; 87340; 87426; 87804; 93005; 94640; 94644; 94660; 96365; 96375; 99291; G0378; J3490

== ENCOUNTER 2025-03-25 20:30 | Inpatient (IN) | payer MEDICAID ==
[~2025-03-25] VITALS: Ht 160 cm; Wt 100.0 kg
[2025-03-25 20:28] VITALS: BP 130/83; PULSE 127; O2SAT 100
[~2025-03-25 20:30] MED LIST changes: -AZIT-185 PO; +PRED20TA2 PO
--- NOTE | 2025-03-25 20:44 | ED.PDOC ---
SOB-HPI HPI Comments This is a 44 year-old female, with a PMHX of Asthma, Vocal Cord Dysfunction, laryngeal spasm, and COPD, who presents to the ED via EMS with a chief complaint of SOB as of minutes ago. Patient reports going outside and "smelling smoke," with symptoms following after. Patient reports SOB happening before. Patient has no further complaints at this time and otherwise denies chest pain, cough, dizziness, or LOC. REVIEW OF SYSTEMS: No fever, no chills, or fatigue HEENT: No sore throat, no earache, no congestion, no neck pain. Cardiac: No chest pain. No palpitations. Lungs: (+) shortness of breath, no cough. GI: No nausea, no vomiting, no diarrhea, no constipation, no abdominal pain : No dysuria, frequency, or urgency. No hematuria. Musculoskeletal: No joint pain , no joint swelling, no extremity edema. Skin: No rash, no itching. Neuro: No headache, no dizziness, no weakness EXAM: General: Awake, alert and oriented. No acute distress. Skin: Skin in warm, dry and intact. Appropriate color for ethnicity. HEENT: The head is normocephalic and atraumatic. Conjunctivae are clear without exudates or hemorrhage. Sclera is non-icteric. EOM are intact. No signs of nystagmus. Eyelids are normal in appearance without swelling or lesions. Oral mucosa is pink and moist Neck: The neck is supple with normal range of motion. No JVD. Cardiac: Heart rate and rhythm are normal. No murmurs, gallops, or rubs are auscultated. Respiratory: (+) Labor Respirations, Lung sounds are clear in all lobes bilaterally without rales, rhonchi, or wheezes. Abdominal: Abdomen is soft, non-tender without distention. Bowel sounds are present and normoactive in all four quadrants. Extremities: Upper and lower extremities are atraumatic in appearance without deformity or edema. Neurological: The patient is awake, alert and oriented to person, place, and time with normal speech. Speech is clear. There is no facial asymmetry. Psychiatric: Appropriate mood and affect. Good judgement and insight. 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 Was a procedure done?: No Differential Dx Differential Diagnosis: Anxiety, Asthma, Bronchitis, COPD, Panic Attack, Pneumonia, Allergic Rhinitis X-Ray, Labs, Meds, VS Vital Signs Date Time Temp Pulse Resp B/P (MAP) Pulse Ox O2 Delivery O2 Flow Rate FiO2 03/25/25 22:12 99 109/72 100 Facial BiPAP Mask 40 03/25/25 22:10 98.9 97 19 109/72 (84) 99 98.9 03/25/25 20:45 97 20 100 Bi-Pap+ 40 40 03/25/25 20:44 109 03/25/25 20:39 109 03/25/25 20:31 98.9 123 20 130/83 (99) 100 98.9 03/25/25 20:30 98.9 110 28 137/84 99 98.9 03/25/25 20:28 127 130/83 100 Facial BiPAP Mask 40 Lab Test 03/25/25 23:01 03/25/25 22:30 Range/Units Troponin I High Sensitivity < 3 L < 3 L </=34 ng/L White Blood Count 8.3 4.4-10.8 10^3/uL Red Blood Count 4.40 4.0-5.20 10^6/uL Hemoglobin 12.4 12.2-16.2 g/dL Hematocrit 36.0 36.0-46.0 % Mean Corpuscular Volume 81.9 80.0-100.0 fL Mean Corpuscular Hemoglobin 28.3 28.0-32.0 pg Mean Corpuscular Hemoglobin Concent 34.6 32.0-36.0 g/dL Red Cell Distribution Width 14.4 H 11.8-14.3 % Platelet Count 253 140-450 10^3/uL Mean Platelet Volume 7.8 6.9-10.8 fL Neutrophils (%) (Auto) 65.0 37.0-80.0 % Lymphocytes (%) (Auto) 27.2 10.0-50.0 % Monocytes (%) (Auto) 6.8 0.0-12.0 % Eosinophils (%) (Auto) 0.7 0.0-7.0 % Basophils (%) (Auto) 0.3 0.0-2.0 % Neutrophils # (Auto) 5.4 1.6-8.6 10 ^3/uL Lymphocytes # (Auto) 2.3 0.4-5.4 10 ^3/uL Monocytes # (Auto) 0.6 0-1.3 10 ^3/uL Eosinophils # (Auto) 0.1 0-0.8 10 ^3/uL Basophils # (Auto) 0 0-0.2 10 ^3/uL Nucleated Red Blood Cells 0.0 % Sodium Level 142 136-145 mmol/L Potassium Level 3.0 L 3.5-5.1 mmol/L Chloride Level 106 98-107 mmol/L Carbon Dioxide Level 23 20-31 mmol/L Anion Gap 13 5-15 Blood Urea Nitrogen 8 L 9-23 mg/dL Creatinine 0.69 0.550-1.02 mg/dL Glomerular Filtration Rate Calc 110 >90 mL/min BUN/Creatinine Ratio 11.6 10.0-20.0 Serum Glucose 122 H 74-106 mg/dL Calcium Level 9.5 8.7-10.4 mg/dL Total Bilirubin < 0.2 L 0.2-1.0 mg/dL Aspartate Amino Transferase (AST) 16 13-40 U/L Alanine Aminotransferase (ALT) 16 7-40 U/L Alkaline Phosphatase 90 46-116 U/L B-Type Natriuretic Peptide 4.74 0-100 pg/mL Total Protein 6.5 5.7-8.2 g/dL Albumin 4.5 3.2-4.8 g/dL Current Medications Medications (Trade) Dose Ordered Sig/Jessica Route Start Time Stop Time Status Last Admin Potassium Chloride 100 ml @ 50 mls/hr ONCE ONCE IV 03/25/25 23:45 03/26/25 01:44 DC 03/26/25 00:05 PATIENT: RUPA WAGGONER: [id number]: [id number] : 1980 LOC: ER ROOM / BED: / AGE / SEX: 44 / F ADM STATUS: REG ER SERVICE 02 ORDERING PHYSICIAN: JAVI TOMLINSON MD PROCEDURE(s): CXR1 - CHEST XRAY 1 VIEW REASON: Shortness of breath ORDER NUMBER(s): [id number], ACCESSION NUMBER(s): [id number] CHEST RADIOGRAPH REASON FOR EXAM: Shortness of breath COMPARISON: XY CHEST PORTABLE on DOS: 03/11/25, XY CHEST PORTABLE on DOS: 02/15/25, XY CHEST PORTABLE on DOS: 01/16/25, XY CHEST PORTABLE on DOS: 01/15/25, XY CHEST PORTABLE on DOS: 01/14/25 TECHNIQUE: One view of the chest is provided FINDINGS: The cardiomediastinal silhouette is within normal limits for size. There are very low inspiratory volumes causing crowding and exaggeration of the pulmonary markings. There is no lobar consolidation. There is no significant pleural effusion. There is no pneumothorax. No acute osseous abnormality is identified. IMPRESSION: Very low inspiratory volumes cause crowding and exaggeration of the pulmonary markings. No lobar consolidation. Consider repeat radiograph in full inspiration. Time of 1ST Reevaluation: 21:22 Reevaluation 1ST: Unchanged Patient Education/Counseling: Need For Follow Up Family Education/Counseling: No Family Present SEPSIS Sepsis Screen Physician Orders BIPAP (03/25/25 20:39) Chest Xray 1 View (03/25/25 22:03) Vital Signs Date Time Temp Pulse Resp B/P (MAP) Pulse Ox O2 Delivery O2 Flow Rate FiO2 03/25/25 22:12 99 109/72 100 Facial BiPAP Mask 40 03/25/25 22:10 98.9 97 19 109/72 (84) 99 98.9 03/25/25 20:45 97 20 100 Bi-Pap+ 40 40 03/25/25 20:44 109 03/25/25 20:39 109 03/25/25 20:31 98.9 123 20 130/83 (99) 100 98.9 03/25/25 20:30 98.9 110 28 137/84 99 98.9 03/25/25 20:28 127 130/83 100 Facial BiPAP Mask 40 Laboratory Tests Test 03/25/25 22:30 White Blood Count 8.3 10^3/uL (4.4-10.8) Departure 1 Departure Time of Disposition: 22:38 Impression: Primary Impression: Shortness of breath Additional Impression: Hypokalemia Disposition: ADMITTED INPATIENT Condition: Guarded Comments MDM: [age] year old female with a history of laryngeal spasm, vocal cord dysfunction presents with shortness of breath. Patient initially 82% on room air, requiring CPAP. Patient has history of intubation for treatment of respiratory failure in the past. Patient now on 3 L nasal cannula. Given the complexity of the case and need for further management patient is being admitted to the hospitalist service for further monitoring, treatment and evaluation. Risks, benefits and alternatives of admission and proposed interventions were discussed with the patient. Patient is in agreement with the plan. Critical Care Note Critical Care Time?: No Stability Stability form required: No Heart Score Heart Score: Heart Score Response (Comments) Value History N/A 0 EKG N/A 0 Age N/A 0 Risk Factors N/A 0 Troponin N/A 0 Total 0 I personally scribed for JAVI TOMLINSON MD ([employer]) on 03/25/25 at 20:44. Electronically submitted by Lacie Sommers ([email or web address]). I personally scribed for JAVI TOMLINSON MD ([email or web address]) on 03/25/25 at 20:49. Electronically submitted by Lacie Sommers ([email or web address]). JAVI TOMLINSON MD Mar 25, 2025 20:44
[2025-03-25 20:45] VITALS: PULSE 97; RESP 20; O2SAT 100
--- NOTE | 2025-03-25 21:13 | ECG ---
[facility] Test Date: 2025-03-25 Test Time: 20:39:33 Pat Name: ALMA WAGGONER Department: ED Room: Gender: F Program Clerk: thania : 1980 Requested By: EMERGENCY EMERGENCY Order Number: [id number] Reading MD: Measurements Intervals [place] Rate: 109 P: 75 [place]: 141 QRS: 106 QRSD: 94 T: 40 QT: 330 QTc: 445 Interpretive Statements Sinus tachycardia Right axis deviation Borderline T abnormalities, anterior leads Please click the below link to view image of tracing.
[2025-03-25 22:12] VITALS: BP 109/72; PULSE 99; O2SAT 100
--- NOTE | 2025-03-25 22:48 | [facility] ---
CHEST RADIOGRAPH REASON FOR EXAM: Shortness of breath COMPARISON: XY CHEST PORTABLE on DOS: 03/11/25, XY CHEST PORTABLE on DOS: 02/15/25, XY CHEST PORTABLE on DOS: 01/16/25, XY CHEST PORTABLE on DOS: 01/15/25, XY CHEST PORTABLE on DOS: 01/14/25 TECHNIQUE: One view of the chest is provided FINDINGS: The cardiomediastinal silhouette is within normal limits for size. There are very low insp iratory volumes causing crowding and exaggeration of the pulmonary markings. There is no lobar conso lidation. There is no significant pleural effusion. There is no pneumothorax. No acute osseous abno rmality is identified. IMPRESSION: Very low inspiratory volumes cause crowding and exaggeration of the pulmonary markings. No lobar cons olidation. Consider repeat radiograph in full inspiration.
[2025-03-25 23:14] LABS: Alanine Aminotransferase 16 U/L (7-40); Albumin 4.5 g/dL (3.2-4.8); Alkaline Phosphatase 90 U/L (46-116); Anion Gap 13 (5-15); BUN/Creatinine Ratio 11.6 (10.0-20.0); Calcium 9.5 mg/dL (8.7-10.4); Carbon Dioxide 23 mmol/L (20-31); Chloride 106 mmol/L (98-107); Sodium 142 mmol/L (136-145); Total Protein 6.5 g/dL (5.7-8.2)
[2025-03-25 23:16] LABS: Bilirubin, Total < 0.2 mg/dL (0.2-1.0); Blood Urea Nitrogen 8 mg/dL (9-23); Glucose 122 mg/dL (74-106); Potassium 3.0 mmol/L (3.5-5.1)
[2025-03-25 23:20] LABS: Hematocrit 36.0 % (36.0-46.0); Hemoglobin 12.4 g/dL (12.2-16.2); Mean Corpuscular Hemoglobin 28.3 pg (28.0-32.0); Mean Corpuscular Volume 81.9 fL (80.0-100.0); Nucleated Red Blood Cells % 0.0 %
[2025-03-26] MEDS ORDERED: MORPHINE SULFATE INJ 2 MG/ml SYRG IV PRN
[2025-03-26] MEDS ORDERED: NITROGLYCERIN 0.4 MG SL TAB SL PRN
[2025-03-26] MEDS: POTASSIUM CHL 20MEQ/100ML 100 ML IV ONE (00:05)
[2025-03-26] MEDS: SODIUM CHLORIDE 0.9% 500 ML IV ONE (00:22)
[2025-03-26] MEDS: HYDROcodone-ACET 10/325MG TAB PO ONE (00:27)
[2025-03-26] MEDS ORDERED: ONDANSETRON HCL 4 MG/2 ML VIAL IV PRN (01:00)
[2025-03-26] MEDS ORDERED: TEMAZEPAM 15 MG CAP PO PRN (01:00)
[2025-03-26] MEDS ORDERED: IPRATROPIUM BROM 0.5 MG/2.5ML INH SOL NEB PRN (01:00)
[2025-03-26] MEDS ORDERED: ALBUTEROL SULF 2.5 MG/0.5ML(0.5%) NEB SOLN NEB PRN (01:00)
[2025-03-26 01:11] VITALS: BP 109/72; PULSE 99; RESP 19; TEMP 98.9; O2SAT 100
--- NOTE | 2025-03-26 01:12 | DVHHP2 ---
History of Present Illness Reason for Visit: Shortness for breath History of Present Illness 44-year-old female presents for evaluation of shortness for breath. Patient reports with a one day history of shortness for breath. Patient reports smelling smoke when going outside of her garage and subsequently she developed symptoms of shortness for breath. She used an inhaler at home without relief. Denies any chest pain at the moment. Past Medical History Asthma, anemia, vocal cord dysfunction, thyroid, COPD Past Surgical History Cholecystectomy, appendectomy, , tonsillectomy Family History Noncontributory Smoke: No ALCOHOL: none Drugs: None Lives: with Family Review of Systems Review of Systems Review of systems are currently negative otherwise addressed in HPI. Allergies: Coded Allergies: Ibuprofen (Verified Allergy, Unknown, 04/25/23) Levothyroxine (Verified Allergy, Unknown, 04/25/23) Medications Current Medications Medications Dose Ordered Sig/Jessica Route Start Time Stop Time Status Last Admin Dose Admin Nitroglycerin 0.4 mg Q5MINP PRN SL 03/26/25 00:00 Morphine Sulfate 2 mg Q30M PRN IV 03/26/25 00:00 Oxycodone/ Acetaminophen 2 tab Q8HP PRN PO 03/26/25 01:00 UNV Albuterol 2.5 mg Q6HPRN PRN NEB 03/26/25 01:00 UNV Ipratropium [place] 0.5 mg Q6HPRN PRN NEB 03/26/25 01:00 UNV Montelukast Sodium 10 mg HS PO 03/26/25 22:00 UNV Temazepam 15 mg QHSP PRN PO 03/26/25 01:00 UNV Ondansetron HCl 4 mg Q4HP PRN IV 03/26/25 01:00 UNV Exam Vital Signs Vital Signs Date Time Temp Pulse Resp B/P (MAP) Pulse Ox O2 Delivery O2 Flow Rate FiO2 03/25/25 22:12 99 109/72 100 Facial BiPAP Mask 40 03/25/25 22:10 98.9 19 98.9 Exam Gen: 44-year-old female in mild distress Skin: Warm, dry, normal color and texture, no rash. HEENT: Normocephalic atraumatic, mucous membranes moist and pink. Neck: Cervical and supraclavicular nodes normal without enlargement, trachea is midline, thyroid gland is normal without masses. Pulmonary: Diminished breath sounds bilaterally Cardiac: Regular rate and rhythm. No murmur Abdomen: Soft, nontender, nondistended, bowel sounds present all 4 quadrants, no guarding, no rigidity, no organomegaly. Extremities: No cyanosis, clubbing, no edema Neuro: Cranial nerves II through XII grossly intact, normal affect and speech, no focal motor deficits. Labs/Xrays ORDERING PHYSICIAN: JAVI TOMLINSON MD PROCEDURE(s): CXR1 - CHEST XRAY 1 VIEW REASON: Shortness of breath ORDER NUMBER(s): [id number], ACCESSION NUMBER(s): [id number] CHEST RADIOGRAPH REASON FOR EXAM: Shortness of breath COMPARISON: XY CHEST PORTABLE on DOS: 03/11/25, XY CHEST PORTABLE on DOS: 02/15/25, XY CHEST PORTABLE on DOS: 01/16/25, XY CHEST PORTABLE on DOS: 01/15/25, XY CHEST PORTABLE on DOS: 01/14/25 TECHNIQUE: One view of the chest is provided FINDINGS: The cardiomediastinal silhouette is within normal limits for size. There are very low inspiratory volumes causing crowding and exaggeration of the pulmonary markings. There is no lobar consolidation. There is no significant pleural effusion. There is no pneumothorax. No acute osseous abnormality is identified. IMPRESSION: Very low inspiratory volumes cause crowding and exaggeration of the pulmonary markings. No lobar consolidation. Consider repeat radiograph in full inspiration. Labs Test 03/25/25 23:01 03/25/25 22:30 Range/Units Troponin I High Sensitivity < 3 L </=34 ng/L White Blood Count 8.3 4.4-10.8 10^3/uL Red Blood Count 4.40 4.0-5.20 10^6/uL Hemoglobin 12.4 12.2-16.2 g/dL Hematocrit 36.0 36.0-46.0 % Mean Corpuscular Volume 81.9 80.0-100.0 fL Mean Corpuscular Hemoglobin 28.3 28.0-32.0 pg Mean Corpuscular Hemoglobin Concent 34.6 32.0-36.0 g/dL Red Cell Distribution Width 14.4 H 11.8-14.3 % Platelet Count 253 140-450 10^3/uL Mean Platelet Volume 7.8 6.9-10.8 fL Neutrophils (%) (Auto) 65.0 37.0-80.0 % Lymphocytes (%) (Auto) 27.2 10.0-50.0 % Monocytes (%) (Auto) 6.8 0.0-12.0 % Eosinophils (%) (Auto) 0.7 0.0-7.0 % Basophils (%) (Auto) 0.3 0.0-2.0 % Neutrophils # (Auto) 5.4 1.6-8.6 10 ^3/uL Lymphocytes # (Auto) 2.3 0.4-5.4 10 ^3/uL Monocytes # (Auto) 0.6 0-1.3 10 ^3/uL Eosinophils # (Auto) 0.1 0-0.8 10 ^3/uL Basophils # (Auto) 0 0-0.2 10 ^3/uL Nucleated Red Blood Cells 0.0 % Sodium Level 142 136-145 mmol/L Potassium Level 3.0 L 3.5-5.1 mmol/L Chloride Level 106 98-107 mmol/L Carbon Dioxide Level 23 20-31 mmol/L Anion Gap 13 5-15 Blood Urea Nitrogen 8 L 9-23 mg/dL Creatinine 0.69 0.550-1.02 mg/dL Glomerular Filtration Rate Calc 110 >90 mL/min BUN/Creatinine Ratio 11.6 10.0-20.0 Serum Glucose 122 H 74-106 mg/dL Calcium Level 9.5 8.7-10.4 mg/dL Total Bilirubin < 0.2 L 0.2-1.0 mg/dL Aspartate Amino Transferase (AST) 16 13-40 U/L Alanine Aminotransferase (ALT) 16 7-40 U/L Alkaline Phosphatase 90 46-116 U/L B-Type Natriuretic Peptide 4.74 0-100 pg/mL Total Protein 6.5 5.7-8.2 g/dL Albumin 4.5 3.2-4.8 g/dL SEPSIS Sepsis Screen Date sepsis recognized/suspect: Mar 25, 2025 Time Sepsis recognized/suspect: 2034 Recent Procedure: No On Antibiotic Therapy: No Respiratory Rate >20: No Heart Rate >90: Yes Temp<36 C (96.8 F) or >38.3 C: No SBP <90 or MAP <65 mmHG: No New Acute Mental Status Change: No Is the patient on CPAP, BIPAP,: Yes Physician Orders BIPAP (03/25/25 20:39) Chest Xray 1 View (03/25/25 22:03) Troponin-I Hs (03/26/25 01:03) Potassium Chl 20meq/100ml (03/25/25 23:45) Admit (03/25/25 23:53) Nitroglycerin Sublingual (Ntrostat Subli (03/26/25 00:00) Morphine Sulfate Injection (03/26/25 00:00) Stat Ekg For Chest Pain (03/25/25 23:53) Notify Md Of Changes From Base (03/25/25 23:53) Director Safety Council For 24 Hours (03/25/25 23:53) Emergency Dysrhythmia Protocol (03/25/25 23:53) Rhythm Strips Once Every Shift (03/25/25 23:53) Oxygen By Nasal Cannula (03/25/25 23:53) Sodium Chloride 0.9% (03/26/25 00:15) Oxycodone W/ Acet 5/325mg Tab (Percocet (03/26/25 01:00) Albuterol Medneb (Ventolin Medneb) (03/26/25 01:00) Ipratropium Medneb (Atrovent Medneb) (03/26/25 01:00) Montelukast Tablet (Singulair Tablet) (03/26/25 22:00) Regular Diet (03/26/25 Breakfast) Temazepam (Restoril) (03/26/25 01:00) Ondansetron Hcl (Zofran) (03/26/25 01:00) Condition: Fair (03/26/25 01:00) Bedrest With Bathroom Privileg (03/26/25 01:00) Vital Signs Date Time Temp Pulse Resp B/P (MAP) Pulse Ox O2 Delivery O2 Flow Rate FiO2 03/25/25 22:12 99 109/72 100 Facial BiPAP Mask 40 03/25/25 22:10 98.9 97 19 109/72 (84) 99 98.9 03/25/25 20:45 97 20 100 Bi-Pap+ 40 40 03/25/25 20:44 109 03/25/25 20:39 109 03/25/25 20:31 98.9 123 20 130/83 (99) 100 98.9 03/25/25 20:30 98.9 110 28 137/84 99 98.9 03/25/25 20:28 127 130/83 100 Facial BiPAP Mask 40 Laboratory Tests Test 03/25/25 22:30 White Blood Count 8.3 10^3/uL (4.4-10.8) Medications Medications Dose Ordered Sig/Jessica Route Start Time Stop Time Status Last Admin Dose Admin Acetaminophen/ Hydrocodone Bitart 1 tab ONCE ONCE PO 03/26/25 00:15 03/26/25 00:16 DC 03/26/25 00:27 1 TAB Potassium Chloride 100 ml @ 50 mls/hr ONCE ONCE IV 03/25/25 23:45 03/26/25 01:44 03/26/25 00:05 50 MLS/HR Sodium Chloride 500 ml @ 500 mls/hr Q1H ONCE IV 03/26/25 00:15 03/26/25 01:14 03/26/25 00:22 500 MLS/HR Assessment/Plan Assessment/Plan Assessment Acute on chronic respiratory failure Asthma exacerbation Chronic back pain Plan Admit the patient to Med surge to the hospitalist Med nebs Resume home medications Continue treatment per orders. Plan discussed with: Patient My Orders Orders - DEANNE INFANTE Procedure Category Date Status Time Admit ADMIT 03/25/25 Transmitted 23:53 Nitroglycerin PHA 03/26/25 In Process Sublingual (Ntrostat 00:00 Morphine Sulfate PHA 03/26/25 In Process Injection 00:00 Stat Ekg For Chest TARAN 03/25/25 In Process Pain 23:53 Notify Of Changes [facility] 03/25/25 In Process From Base 23:53 Director Safety Council For [facility] 03/25/25 In Process 24 Hours 23:53 Emergency Dysrhythmia TARAN 03/25/25 In Process Protocol 23:53 Rhythm Strips Once [facility] 03/25/25 In Process Every Shift 23:53 Oxygen By Nasal RT 03/25/25 Transmitted Cannula 23:53 Oxycodone W/ Acet PHA 03/26/25 Logged 5/325mg Tab (Percocet 01:00 Albuterol Medneb PHA 03/26/25 Logged (Ventolin Medneb) 01:00 Ipratropium Medneb PHA 03/26/25 Logged (Atrovent Medneb) 01:00 Montelukast Tablet PHA 03/26/25 Logged (Singulair Tablet) 22:00 Regular Diet DIET 03/26/25 Transmitted Breakfast Temazepam (Restoril) PHA 03/26/25 Logged 01:00 Ondansetron Hcl PHA 03/26/25 Logged (Zofran) 01:00 Condition: Fair TARAN 03/26/25 In Process 01:00 Bedrest With Bathroom TARAN 03/26/25 In Process Privileg 01:00 Date of Service: Mar 26, 2025 Billing Provider: DEANNE INFANTE Common Visit Codes: [id number] INP/OBS CARE (HIGH) DEANNE INFANTE Mar 26, 2025 01:12
[2025-03-26 01:24] VITALS: PULSE 97; RESP 20; O2SAT 100
[2025-03-26 06:20] VITALS: O2SAT 99
[2025-03-26 07:30] VITALS: PULSE 69; RESP 20; O2SAT 100
[2025-03-26 08:06] VITALS: TEMP 97.6
[2025-03-26] MEDS: OXYCODONE W/ ACETAMINOPHEN 5/325MG TABLET PO PRN (10:16)
--- NOTE | 2025-03-26 12:25 | DVH ---
EXAM: XY CHEST TWO VIEWS ROUTINE CLINICAL HISTORY: asthma exac COMPARISON: XY CHEST XRAY 1 VIEW on DOS: 03/25/25, XY CHEST PORTABLE on DOS: 03/11/25, XY CHEST PORTABL E on DOS: 02/15/25, XY CHEST PORTABLE on DOS: 01/16/25, XY CHEST PORTABLE on DOS: 01/15/25 TECHNIQUE: Frontal and lateral view of the chest was obtained FINDINGS: Lines and Tubes: None Lungs: Bibasilar opacities. Low lung volumes. Pleura: No effusion. No pneumothorax. Cardiomediastinal contours: Unremarkable Bones: No acute osseous abnormality. IMPRESSION: Bibasilar opacities. Low lung volumes.
[2025-03-26] MEDS: POTASSIUM EFFERVESENT TAB 25 MEQ PO ONE (13:49)
--- NOTE | 2025-03-26 14:08 | DVHDS2 ---
Discharge Summary Date of Admission Mar 25, 2025 at 23:53 Date of Discharge: Mar 26, 2025 Labs/Diagnostic Data: Laboratory Results Test 03/26/25 01:08 03/25/25 22:30 Troponin I High Sensitivity < 3 ng/L (</=34) White Blood Count 8.3 10^3/uL (4.4-10.8) Red Blood Count 4.40 10^6/uL (4.0-5.20) Hemoglobin 12.4 g/dL (12.2-16.2) Hematocrit 36.0 % (36.0-46.0) Mean Corpuscular Volume 81.9 fL (80.0-100.0) Mean Corpuscular Hemoglobin 28.3 pg (28.0-32.0) Mean Corpuscular Hemoglobin Concent 34.6 g/dL (32.0-36.0) Red Cell Distribution Width 14.4 % (11.8-14.3) Platelet Count 253 10^3/uL (140-450) Mean Platelet Volume 7.8 fL (6.9-10.8) Neutrophils (%) (Auto) 65.0 % (37.0-80.0) Lymphocytes (%) (Auto) 27.2 % (10.0-50.0) Monocytes (%) (Auto) 6.8 % (0.0-12.0) Eosinophils (%) (Auto) 0.7 % (0.0-7.0) Basophils (%) (Auto) 0.3 % (0.0-2.0) Neutrophils # (Auto) 5.4 10 ^3/uL (1.6-8.6) Lymphocytes # (Auto) 2.3 10 ^3/uL (0.4-5.4) Monocytes # (Auto) 0.6 10 ^3/uL (0-1.3) Eosinophils # (Auto) 0.1 10 ^3/uL (0-0.8) Basophils # (Auto) 0 10 ^3/uL (0-0.2) Nucleated Red Blood Cells 0.0 % Sodium Level 142 mmol/L (136-145) Potassium Level 3.0 mmol/L (3.5-5.1) Chloride Level 106 mmol/L (98-107) Carbon Dioxide Level 23 mmol/L (20-31) Anion Gap 13 (5-15) Blood Urea Nitrogen 8 mg/dL (9-23) Creatinine 0.69 mg/dL (0.550-1.02) Glomerular Filtration Rate Calc 110 mL/min (>90) BUN/Creatinine Ratio 11.6 (10.0-20.0) Serum Glucose 122 mg/dL (74-106) Calcium Level 9.5 mg/dL (8.7-10.4) Total Bilirubin < 0.2 mg/dL (0.2-1.0) Aspartate Amino Transferase (AST) 16 U/L (13-40) Alanine Aminotransferase (ALT) 16 U/L (7-40) Alkaline Phosphatase 90 U/L (46-116) B-Type Natriuretic Peptide 4.74 pg/mL (0-100) Total Protein 6.5 g/dL (5.7-8.2) Albumin 4.5 g/dL (3.2-4.8) Other Laboratory Tests 03/25/25 22:30 Brief Hx & Hospital Course: 84-year-old female with a known history of chronic asthma, Koki disease initially presented to the hospital with the increasing shortness a breath. Patient has stated that she got out of her house and smell smoke and then started having wheezing. Patient does have known history of chronic asthma as well as vocal cord dysfunction. Patient was started on med nebs currently patient is requesting to go home. Patient was examined by me she has clear lungs no wheezes. Patient's can be discharged with a close follow up as an outpatient with the PCP as needed. Condition at Discharge: Stable Final Diagnosis/Problems List 1. Acute hypoxic respiratory failure secondary to acute asthma exacerbation 2. Acute asthma exacerbation 3. Vocal cord dysfunction 4. Koki disease Discharge Disposition: Home SNF Discharge Will this Physician continue t: No Discharge Instruct/Medications Diet: Cardiac 2g Na,low cholest Activity: No Restrictions, As Tolerated Follow Up/Referral: Follow up with the PCP in one week Medications: Resume home medications including rescue inhaler. Scheduled Cholecalciferol (Vitamin D3), 5,000 UNIT OR QWEEKLY, (Reported) Cyclobenzaprine Hcl (Cyclobenzaprine Hcl), 5 MG PO BID, (Reported) Docusate Sodium (Colace), 100 MG PO DAILY, (Reported) Ferrous Sulfate (Ferosul), 325 PO DAILY, (Reported) Montelukast Sodium (Montelukast Sodium), 1 TAB PO DAILY, (Reported) Prednisone (Prednisone), 40 MG PO DAILY Scheduled PRN Albuterol Sulfate (Ventolin), 2.5 MG NEB Q4HPRN PRN Gabapentin (Gabapentin), 300 MG PO BID PRN for NEUROPATHRY LEG PAIN, (Reported) Oxycodone W/ Acetaminophen (Apap/Oxycodone), 1 TAB PO QID PRN for BACK PAIN,, (Reported) Discharge Statement: "Patient was advised to return to the ER or call 911 if any headaches, dizziness, shortness of breath, chest pain, abdominal pain, bleeding, fevers, or worsening of medical condition. Patient was counseled about treatment plan, medications, possible side effects, patientverbalized understanding. All questions were answered to the best of my ability. This discharge took greater then 30 minutes in planning, reviewing documentation, counseling the patient, and discussing with other team members." ASSESSMENT ASSESSMENT Assessment 1. Acute hypoxic respiratory failure secondary to acute asthma exacerbation 2. Acute asthma exacerbation 3. Vocal cord dysfunction 4. Koki disease Date of Service: Mar 26, 2025 Billing Provider: MASHA VELARDE MD Common Visit Codes: [id number] DISCH DAY >30min MASHA VELARDE MD Mar 26, 2025 14:08
[2025-03-26 14:14] VITALS: BP 103/70; PULSE 71; RESP 12; O2SAT 96
[2025-03-26] MEDS ORDERED: MONTELUKAST SODIUM 10 MG TAB PO SCH (22:00)
== END 2025-03-26 15:07 | disposition home or self-care (01) | DRG 133 ==
LOC: ER 20:30 → EDBD 20:30 → OVERFLOW 23:53 → UNDODEPER 03-26 14:33
PROVIDERS: ADMIT Hospitalist; ATTEND Hospitalist
PROC: 5A09357 Assistance with Respiratory Ventilation, Less than 24 Consecutive Hours, Continuous Positive Airway Pressure (ICD-10-PCS; principal; 2025-03-25)
PROC: 5A09357 Assistance with Respiratory Ventilation, Less than 24 Consecutive Hours, Continuous Positive Airway Pressure (ICD-10-PCS; 2025-03-26)
DX: J96.21 Acute and chronic respiratory failure with hypoxia (principal); J45.901 Unspecified asthma with (acute) exacerbation; E06.3 Autoimmune thyroiditis; E87.6 Hypokalemia; G89.29 Other chronic pain; J38.3 Other diseases of vocal cords; F41.9 Anxiety disorder, unspecified; Z90.49 Acquired absence of other specified parts of digestive tract; Z88.6 Allergy status to analgesic agent
CPT/HCPCS: 36415; 71045; 71046; 80053; 83880; 84484; 85025; 93005; 94660; G0378; J3480

== ENCOUNTER 2025-04-02 17:26 | Emergency (ER) | payer MEDICAID ==
[~2025-04-02] VITALS: Ht 165.1 cm; Wt 86.4 kg
[2025-04-02 17:26] VITALS: PULSE 127; O2SAT 100
[2025-04-02] MEDS ORDERED: LORazepam 2MG/ML-1ML VIAL ONE (17:31)
[2025-04-02 17:34] VITALS: TEMP 99.7
[2025-04-02] MEDS: ALBUTEROL SULF 2.5 MG/0.5ML(0.5%) NEB SOLN NEB ONE (17:43)
[2025-04-02] MEDS: IPRATROPIUM BROM 0.5 MG/2.5ML INH SOL NEB ONE (17:43)
[2025-04-02] MEDS: EPINEPHrine HCL 0.5 ML NEB NEB ONE (17:44)
[2025-04-02] MEDS: LORazepam 2MG/ML-1ML VIAL IM ONE (17:45)
[2025-04-02 17:52] VITALS: PULSE 120; RESP 33; O2SAT 100
[2025-04-02 18:02] LABS: Hematocrit 39.1 % (36.0-46.0); Hemoglobin 13.1 g/dL (12.2-16.2); Mean Corpuscular Hemoglobin 28.0 pg (28.0-32.0); Mean Corpuscular Volume 83.5 fL (80.0-100.0); Nucleated Red Blood Cells % 0.0 %
[2025-04-02 18:11] LABS: Chloride 105 mmol/L (98-107); Sodium 142 mmol/L (136-145)
[2025-04-02 18:12] LABS: Anion Gap 12 (5-15); Calcium 9.8 mg/dL (8.7-10.4); Carbon Dioxide 25 mmol/L (20-31); Potassium 3.3 mmol/L (3.5-5.1)
--- NOTE | 2025-04-02 18:16 | DVH ---
CHEST RADIOGRAPH Indication: SOB Technique: Single frontal view of the chest was obtained Comparison: XY CHEST TWO VIEWS ROUTINE on DOS: 03/26/25, XY CHEST XRAY 1 VIEW on DOS: 03/25/25, XY CHES T PORTABLE on DOS: 03/11/25 FINDINGS: Lines and Tubes: None Lungs: No focal consolidation. Pleura: No effusion. No pneumothorax. Cardiomediastinal contours: Unremarkable Bones: No acute osseous abnormality. IMPRESSION: 1. No acute cardiopulmonary disease.
[2025-04-02 18:17] LABS: Glucose 105 mg/dL (74-106)
[2025-04-02 18:18] LABS: BUN/Creatinine Ratio 6.3 (10.0-20.0); Blood Urea Nitrogen 5 mg/dL (9-23)
[2025-04-02 19:30] VITALS: BP 100/64; PULSE 105; O2SAT 99
--- NOTE | 2025-04-02 19:49 | ED.PDOC ---
SOB-HPI HPI Comments Patient brought in by EMS for shortness of breath. Patient has history of she will reading and laryngeal spasms. Patient was seen last week for similar scenario. States she is having a coughing spell which triggered her airway to start to close. Patient was tachypneic when EMS picked her up, they placed her on CPAP just prior to arrival. 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: Denies all COMPUTER SYSTEMS TECHNICIAN Hx Family History Family History: Unknown Social History Smoker: Unknown Alcohol: Unknown Drugs: Unknown Lives In: Home Constitutional: denies: chills, diaphoresis, fatigue, fever, malaise, sweats, weakness, others EENTM: denies: blurred vision, double vision, ear bleeding, ear discharge, ear drainage, ear pain, ear ringing, eye pain, eye redness, hearing loss, mouth pain, mouth swelling, nasal discharge, nose bleeding, nose congestion, nose pain, photophobia, tearing, throat pain, throat swelling, voice changes, others Respiratory: denies: cough, hemoptysis, orthopnea, SOB at rest, shortness of breath, SOB with excertion, stridor, wheezing, others Cardiovascular: denies: chest pain, dizzy spells, diaphoresis, Dyspnea on exertion, edema, irregular heart beat, left arm pain, lightheadedness, palpitations, PND, syncope, others Gastrointestinal: denies: abdomen distended, abdominal pain, blood streaked bowels, constipated, diarrhea, dysphagia, difficulty swallowing, hematemesis, melena, nausea, poor appetite, poor fluid intake, rectal bleeding, rectal pain, vomiting, others Genitourinary: denies: abnormal vagina bleeding, burning, dyspareunia, dysuria, flank pain, frequency, hematuria, incontinence, pain, , vagina discharge, urgency, others Neurological: denies: dizziness, fainting, headache, left sided numbness, left sided weakness, numbness, paresthesia, pre-existing deficit, right sided numbness, right sided weakness, seizure, speech problems, tingling, tremors, weakness, others Musculoskeletal: denies: back pain, gout, joint pain, joint swelling, muscle pain, muscle stiffness, neck pain, others Integumetry: denies: bruises, change in color, change in hair/nails, dryness, laceration, lesions, lumps, rash, wounds, others Allergic/Immunocompromised: denies: Difficulty Healing, Frequent Infections, Hives, Itching, others Physical Exam General Appearance: No Apparent Distress, Severe Distress HEENT: Normal ENT Inspection, TMs Normal Neck: Full Range of Motion, Normal Inspection Respiratory: Accessory Muscle Use, Respiratory Distress, Stridor Cardiovascular: No Edema, No JVD, No Murmur, No Gallop, Normal Peripheral Pulses, Tachycardia Breast Exam: Deferred Gastrointestinal: NOT DONE Genitalia: Deferred Pelvic: Deferred Rectal: Deferred Extremities: No calf tenderness, Normal capillary refill, Normal inspection, Normal range of motion, Non-tender, No pedal edema Musculoskeletal : Apperance: Normal Neurologic: Alert, physical security engineer II-XII nml as Tested, No Motor Deficits, Normal Affect, Normal Mood, No Sensory Deficits Cerebellar Function: Normal Reflexes: Normal Skin: Dry, Normal Color, Warm Lymphatic: No Adenopathy Was a procedure done? Was a procedure done?: No Differential Dx Differential Diagnosis: Anxiety, Asthma, Bronchitis X-Ray, Labs, Meds, VS Vital Signs Date Time Temp Pulse Resp B/P (MAP) Pulse Ox O2 Delivery O2 Flow Rate FiO2 04/02/25 19:33 102 24 100/64 (76) 100 04/02/25 19:30 105 100/64 99 40 04/02/25 17:55 100 Bi-Pap+ 40 40 04/02/25 17:52 120 33 153/121 (132) 100 04/02/25 17:52 120 33 100 Bi-Pap+ 40 40 04/02/25 17:34 99.7 118 30 139/96 98 99.7 04/02/25 17:34 120 04/02/25 17:26 100 Bi-pap/CPAP 04/02/25 17:26 127 100 40 Lab Test 04/02/25 17:47 Range/Units White Blood Count 9.9 4.4-10.8 10^3/uL Red Blood Count 4.69 4.0-5.20 10^6/uL Hemoglobin 13.1 12.2-16.2 g/dL Hematocrit 39.1 36.0-46.0 % Mean Corpuscular Volume 83.5 80.0-100.0 fL Mean Corpuscular Hemoglobin 28.0 28.0-32.0 pg Mean Corpuscular Hemoglobin Concent 33.5 32.0-36.0 g/dL Red Cell Distribution Width 14.6 H 11.8-14.3 % Platelet Count 378 140-450 10^3/uL Mean Platelet Volume 7.5 6.9-10.8 fL Neutrophils (%) (Auto) 48.2 37.0-80.0 % Lymphocytes (%) (Auto) 44.0 10.0-50.0 % Monocytes (%) (Auto) 6.1 0.0-12.0 % Eosinophils (%) (Auto) 1.4 0.0-7.0 % Basophils (%) (Auto) 0.3 0.0-2.0 % Neutrophils # (Auto) 4.8 1.6-8.6 10 ^3/uL Lymphocytes # (Auto) 4.4 0.4-5.4 10 ^3/uL Monocytes # (Auto) 0.6 0-1.3 10 ^3/uL Eosinophils # (Auto) 0.1 0-0.8 10 ^3/uL Basophils # (Auto) 0 0-0.2 10 ^3/uL Nucleated Red Blood Cells 0.0 % Sodium Level 142 136-145 mmol/L Potassium Level 3.3 L 3.5-5.1 mmol/L Chloride Level 105 98-107 mmol/L Carbon Dioxide Level 25 20-31 mmol/L Anion Gap 12 5-15 Blood Urea Nitrogen 5 L 9-23 mg/dL Creatinine 0.79 0.550-1.02 mg/dL Glomerular Filtration Rate Calc 95 >90 mL/min BUN/Creatinine Ratio 6.3 L 10.0-20.0 Serum Glucose 105 74-106 mg/dL Calcium Level 9.8 8.7-10.4 mg/dL Current Medications Medications (Trade) Dose Ordered Sig/Jessica Route Start Time Stop Time Status Last Admin Lorazepam (Ativan Inj) 1 mg ONCE ONCE IM 04/02/25 17:45 04/02/25 17:46 DC 04/02/25 17:45 Epinephrine HCl (Racenephrine) 0.5 ml ONCE ONCE NEB 04/02/25 17:45 04/02/25 17:46 DC 04/02/25 17:44 Albuterol (Ventolin Medneb) 10 mg ONCE ONCE NEB 04/02/25 17:45 04/02/25 17:46 DC 04/02/25 17:43 Ipratropium [place] (Atrovent Medneb) 1 mg ONCE ONCE NEB 04/02/25 17:45 04/02/25 17:46 DC 04/02/25 17:43 X-Ray, Labs, Meds, VS Comment Imaging was reviewed by this provider, there is no obvious pathological or acute disease process. Pending radiology review Labs were reviewed by this provider, no abnormalities Vital signs reviewed by this provider, clinically stable Time of 1ST Reevaluation: 19:54 Reevaluation 1ST: Improved Patient Education/Counseling: Diagnosis, Treatment, Need For Follow Up (Follow up with PCP at next available appointment. Return to the emergency department if symptoms worsen.) Family Education/Counseling: Diagnosis SEPSIS Sepsis Screen Date sepsis recognized/suspect: Apr 02, 2025 Time Sepsis recognized/suspect: 1749 Recent Procedure: No On Antibiotic Therapy: No Respiratory Rate >20: Yes Heart Rate >90: Yes Temp<36 C (96.8 F) or >38.3 C: No SBP <90 or MAP <65 mmHG: No New Acute Mental Status Change: No Is the patient on CPAP, BIPAP,: Yes Physician Orders BIPAP (04/02/25 17:31) Abg W/ Co-Ox (04/02/25 18:00) Urinalysis (04/02/25 17:36) Electrocardigram (04/02/25 17:37) Chest Xray 1 View (04/02/25 17:38) Vital Signs Date Time Temp Pulse Resp B/P (MAP) Pulse Ox O2 Delivery O2 Flow Rate FiO2 04/02/25 19:33 102 24 100/64 (76) 100 04/02/25 19:30 105 100/64 99 40 04/02/25 17:55 100 Bi-Pap+ 40 40 04/02/25 17:52 120 33 153/121 (132) 100 04/02/25 17:52 120 33 100 Bi-Pap+ 40 40 04/02/25 17:34 99.7 118 30 139/96 98 99.7 04/02/25 17:34 120 04/02/25 17:26 100 Bi-pap/CPAP 04/02/25 17:26 127 100 40 Laboratory Tests Test 04/02/25 17:47 White Blood Count 9.9 10^3/uL (4.4-10.8) Medications Medications Dose Ordered Sig/Jessica Route Start Time Stop Time Status Last Admin Dose Admin Albuterol 10 mg ONCE ONCE NEB 04/02/25 17:45 04/02/25 17:46 DC 04/02/25 17:43 Epinephrine HCl 0.5 ml ONCE ONCE NEB 04/02/25 17:45 04/02/25 17:46 DC 04/02/25 17:44 Ipratropium [place] 1 mg ONCE ONCE NEB 04/02/25 17:45 04/02/25 17:46 DC 04/02/25 17:43 Lorazepam 1 mg ONCE ONCE IM 04/02/25 17:45 04/02/25 17:46 DC 04/02/25 17:45 Departure 1 Departure Time of Disposition: 19:48 Impression: Primary Impression: Stridor Additional Impressions: Vocal cord dysfunction Status asthmaticus Qualified Codes: J45.52 - Severe persistent asthma with status asthmaticus Disposition: 01 HOME / SELF CARE / HOMELESS Condition: Fair Discharged With: Self Critical Care Note Critical Care Time?: No Stability Stability form required: No Heart Score Heart Score: Heart Score Response (Comments) Value History N/A 0 EKG N/A 0 Age N/A 0 Risk Factors N/A 0 Troponin N/A 0 Total 0 MAGNUS TELLEZ Apr 02, 2025 19:49
[2025-04-02 21:56] VITALS: BP 107/74; PULSE 103; RESP 21; O2SAT 97
--- NOTE | 2025-04-04 09:18 | ECG ---
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
== END 2025-04-02 22:13 | disposition home or self-care (01) ==
LOC: EDBD 17:26 → ER 17:26
DX: J45.52 Severe persistent asthma with status asthmaticus (principal); J38.3 Other diseases of vocal cords; Z90.49 Acquired absence of other specified parts of digestive tract; Z90.89 Acquired absence of other organs
CPT/HCPCS: 36415; 36600; 71045; 80048; 82805; 85025; 93005; 94640; 94660; 96372; 99285; J2060

== ENCOUNTER 2025-04-12 14:07 | Inpatient (IN) | payer MEDICAID ==
[~2025-04-12] VITALS: Ht 167.6 cm; Wt 89.5 kg
--- NOTE | 2025-04-12 14:17 | ED.PDOC ---
SOB-HPI HPI Comments This is a 44 year old female presenting to the ED with chief complaint of SOB. Patient reports that she has been experiencing SOB with associated expiratory wheezing since 1am this morning. Patient relays that she used her inhaler with no relief in symptoms noted. Patient states that her last asthma attack was about 2-3 weeks ago. Patient notes she has been intubated in the past. Patient denies any chest pain, cough, syncope, or fever. 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 Family History Family History: Unknown Social History Smoker: Non-Smoker Alcohol: Denies ETOH Use Drugs: Denies Drug Use Lives In: Home Constitutional: denies: chills, diaphoresis, fatigue, fever, malaise, sweats, weakness, others EENTM: denies: blurred vision, double vision, ear bleeding, ear discharge, ear drainage, ear pain, ear ringing, eye pain, eye redness, hearing loss, mouth pain, mouth swelling, nasal discharge, nose bleeding, nose congestion, nose pain, photophobia, tearing, throat pain, throat swelling, voice changes, others Respiratory: reports: shortness of breath, wheezing; denies: cough, hemoptysis, orthopnea, SOB at rest, SOB with excertion, stridor, others Cardiovascular: denies: chest pain, dizzy spells, diaphoresis, Dyspnea on exertion, edema, irregular heart beat, left arm pain, lightheadedness, palpitations, PND, syncope, others Gastrointestinal: denies: abdomen distended, abdominal pain, blood streaked bowels, constipated, diarrhea, dysphagia, difficulty swallowing, hematemesis, melena, nausea, poor appetite, poor fluid intake, rectal bleeding, rectal pain, vomiting, others Genitourinary: denies: abnormal vagina bleeding, burning, dyspareunia, dysuria, flank pain, frequency, hematuria, incontinence, pain, , vagina discharge, urgency, others Neurological: denies: dizziness, fainting, headache, left sided numbness, left sided weakness, numbness, paresthesia, pre-existing deficit, right sided numbness, right sided weakness, seizure, speech problems, tingling, tremors, weakness, others Musculoskeletal: denies: back pain, gout, joint pain, joint swelling, muscle pain, muscle stiffness, neck pain, others Integumetry: denies: bruises, change in color, change in hair/nails, dryness, laceration, lesions, lumps, rash, wounds, others Allergic/Immunocompromised: denies: Difficulty Healing, Frequent Infections, Hives, Itching, others Hematologic/Lymphatic: denies: anemia, blood clots, easy bleeding, easy bruising, swollen glands, others Endocrine: denies: excessive hunger, excessive sweating, excessive thirst, excessive urination, flushing, intolerance to cold, intolerance to heat, unexplained weight gain, unexplained weight loss, others Psychiatric: denies: anxiety, bipolar disorder, depression, hopeless, panic disorder, schizophrenia, sleepless, suicidal, others All Other Systems: Reviewed and Negative Physical Exam General Appearance: Moderate Distress, Normal HEENT: Normal ENT Inspection, Pharynx Normal, TMs Normal Neck: Full Range of Motion, Non-Tender, Normal, Normal Inspection Respiratory: Accessory Muscle Use, Respiratory Distress, Wheezing Cardiovascular: No Edema, No JVD, No Murmur, No Gallop, Normal Peripheral Pulses, Tachycardia Breast Exam: Deferred Gastrointestinal: No Organomegaly, Non Tender, No Pulsatile Mass, Normal Bowel Sounds, Soft Genitalia: Deferred Pelvic: Deferred Rectal: Deferred Extremities: No calf tenderness, Normal capillary refill, Normal inspection, Normal range of motion, Non-tender, No pedal edema Musculoskeletal : Apperance: Normal Neurologic: Alert, supervisor tubing II-XII nml as Tested, No Motor Deficits, Normal Affect, Normal Mood, No Sensory Deficits Cerebellar Function: NOT DONE Reflexes: NOT DONE Skin: Dry, Normal Color, Warm Peripheral Pulses: 3+ Radial (R), 3+ Radial (L) Lymphatic: No Adenopathy Was a procedure done? Was a procedure done?: No Differential Dx Differential Diagnosis: Anxiety, Asthma, Bronchitis, CHF, COPD X-Ray, Labs, Meds, VS Vital Signs Date Time Temp Pulse Resp B/P (MAP) Pulse Ox O2 Delivery O2 Flow Rate FiO2 04/12/25 16:51 97.3 109 18 106/69 100 97.3 04/12/25 16:44 109 18 106/69 (81) 98 04/12/25 15:06 116 24 99 Bi-Pap+ 50 50 04/12/25 15:04 112 29 128/92 (104) 100 04/12/25 15:03 114 128/92 Facial BiPAP Mask 50 04/12/25 14:31 36 98 Nasal Cannula* 4 36 04/12/25 14:16 97.3 116 32 128/105 (113) 98 97.3 04/12/25 14:09 98.3 130 22 131/97 100 98.3 Lab Test 04/12/25 16:35 04/12/25 15:30 04/12/25 14:35 Range/Units Blood Gas Specimen Type Arterial Blood Gas Sample Site Right radial Blood Gas Patient Temperature 37.0 Arterial Blood Date Drawn [id number] Arterial Blood pH 7.442 7.350-7.450 Arterial Blood Partial Pressure CO2 31.2 L 32.0-45.0 mmHg Arterial Blood Partial Pressure O2 196.6 H 83.0-108.0 mmHg Arterial Blood HCO3 20.8 L 21.0-28.0 mmol/L Arterial Blood Oxygen Saturation 99.4 H 94.0-98.0 % Arterial Blood Base Excess -2.3 L -2.0-3.0 mmol/L Arterial Blood Oxyhemoglobin 98.2 H 94.0-98.0 % Arterial Blood Carboxyhemoglobin 0.5 0.5-1.5 % Arterial Blood Methemoglobin 0.7 0.0-1.5 % Giacomo Test Yes Blood Gas Total Hemoglobin 13.80 12.0-16.0 g/dL Blood Gas Set Respiration Rate 12.0 Blood Gas Modality Mask - bipap FiO2 % 50.0 Blood Gas EPAP 5 Blood Gas IPAP 12 Troponin I High Sensitivity < 3 L < 3 L </=34 ng/L White Blood Count 7.6 4.4-10.8 10^3/uL Red Blood Count 4.95 4.0-5.20 10^6/uL Hemoglobin 14.0 12.2-16.2 g/dL Hematocrit 40.5 36.0-46.0 % Mean Corpuscular Volume 81.7 80.0-100.0 fL Mean Corpuscular Hemoglobin 28.3 28.0-32.0 pg Mean Corpuscular Hemoglobin Concent 34.7 32.0-36.0 g/dL Red Cell Distribution Width 14.5 H 11.8-14.3 % Platelet Count 294 140-450 10^3/uL Mean Platelet Volume 7.7 6.9-10.8 fL Neutrophils (%) (Auto) 56.0 37.0-80.0 % Lymphocytes (%) (Auto) 35.6 10.0-50.0 % Monocytes (%) (Auto) 7.0 0.0-12.0 % Eosinophils (%) (Auto) 1.1 0.0-7.0 % Basophils (%) (Auto) 0.3 0.0-2.0 % Neutrophils # (Auto) 4.3 1.6-8.6 10 ^3/uL Lymphocytes # (Auto) 2.7 0.4-5.4 10 ^3/uL Monocytes # (Auto) 0.5 0-1.3 10 ^3/uL Eosinophils # (Auto) 0.1 0-0.8 10 ^3/uL Basophils # (Auto) 0 0-0.2 10 ^3/uL Nucleated Red Blood Cells 0.2 % Sodium Level 141 136-145 mmol/L Potassium Level 3.5 3.5-5.1 mmol/L Chloride Level 108 H 98-107 mmol/L Carbon Dioxide Level 21 20-31 mmol/L Anion Gap 12 5-15 Blood Urea Nitrogen 10 9-23 mg/dL Creatinine 0.76 0.550-1.02 mg/dL Glomerular Filtration Rate Calc 100 >90 mL/min BUN/Creatinine Ratio 13.2 10.0-20.0 Serum Glucose 99 74-106 mg/dL Calcium Level 9.3 8.7-10.4 mg/dL Current Medications Medications (Trade) Dose Ordered Sig/Jessica Route Start Time Stop Time Status Last Admin Albuterol (Ventolin Medneb) 2.5 mg ONCE ONCE NEB 04/12/25 14:15 04/12/25 14:16 DC 04/12/25 14:31 Methylprednisolone Sodium Succinate (Solu Medrol) 125 mg ONCE ONCE IV 04/12/25 14:15 04/12/25 14:17 DC 04/12/25 14:53 Albuterol (Ventolin Medneb) 20 mg ONCE ONCE NEB 04/12/25 14:15 04/12/25 14:17 DC 04/12/25 14:31 Magnesium Sulfate/ Dextrose 100 ml @ 100 mls/hr ONCE ONCE IV 04/12/25 14:15 04/12/25 15:14 DC 04/12/25 14:54 Patient alert. She is wheezing. Tachycardic. Started breathing treatment. Was seen here recently for the same symptom. Respiratory distress. Was given steroid. Was given magnesium. Placed on BiPAP. Explained to the patient. Continue to monitor. [place] [id number] Ph: [phone] DIAGNOSTIC IMAGING Diagnostic Imaging Report : [id number] Signed PATIENT: ALMA WAGGONERACCT: [id number] UNIT: [id number] : 1980 LOC: ER ROOM / BED: / AGE / SEX: 44 / F ADM STATUS: REG ER SERVICE 1415 ORDERING PHYSICIAN: AMAN CARRINGTON MD PROCEDURE(s): CXRP - CHEST PORTABLE REASON: sob ORDER NUMBER(s): [id number], ACCESSION NUMBER(s): [id number] EXAM: XY CHEST PORTABLE HISTORY: sob COMPARISON: XY CHEST XRAY 1 VIEW on DOS: 04/02/25, XY CHEST TWO VIEWS ROUTINE on DOS: 03/26/25, XY CHEST XRAY 1 VIEW on DOS: 03/25/25, XY CHEST PORTABLE on DOS: 03/11/25, XY CHEST PORTABLE on DOS: 02/15/25 TECHNIQUE: Portable upright AP view of the chest was performed. FINDINGS: No pneumothorax, consolidative infiltrates, or pulmonary edema. The heart is not enlarged. There is abundant overlying adipose tissue. IMPRESSION: Obesity without evidence of acute intrathoracic process. ATED BY: TEVIN AGRAWAL MD DICTATED DATE/TIME: 04/12/251451 SIGNED BY: TEVIN AGRAWAL MD SIGNED DATE/TIME: 04/12/251451 CC: Images Reviewed?: Images reviewed and evaluated by me Time of 1ST Reevaluation: 15:15 Reevaluation 1ST: Unchanged Patient Education/Counseling: Diagnosis, Treatment Family Education/Counseling: No Family Present SEPSIS Sepsis Screen Date sepsis recognized/suspect: Apr 12, 2025 Time Sepsis recognized/suspect: 1411 Recent Procedure: No On Antibiotic Therapy: No Respiratory Rate >20: Yes Heart Rate >90: Yes Temp<36 C (96.8 F) or >38.3 C: No SBP <90 or MAP <65 mmHG: No New Acute Mental Status Change: No Is the patient on CPAP, BIPAP,: No Physician Orders Chest Portable (04/12/25 14:15) Urinalysis (04/12/25 14:15) BIPAP (04/12/25 15:18) Abg W/ Co-Ox (04/12/25 16:00) Vital Signs Date Time Temp Pulse Resp B/P (MAP) Pulse Ox O2 Delivery O2 Flow Rate FiO2 04/12/25 16:51 97.3 109 18 106/69 100 97.3 04/12/25 16:44 109 18 106/69 (81) 98 04/12/25 15:06 116 24 99 Bi-Pap+ 50 50 04/12/25 15:04 112 29 128/92 (104) 100 04/12/25 15:03 114 128/92 Facial BiPAP Mask 50 04/12/25 14:31 36 98 Nasal Cannula* 4 36 04/12/25 14:16 97.3 116 32 128/105 (113) 98 97.3 04/12/25 14:09 98.3 130 22 131/97 100 98.3 Laboratory Tests Test 04/12/25 14:35 White Blood Count 7.6 10^3/uL (4.4-10.8) Medications Medications Dose Ordered Sig/Jessica Route Start Time Stop Time Status Last Admin Dose Admin Albuterol 2.5 mg ONCE ONCE NEB 04/12/25 14:15 04/12/25 14:16 DC 04/12/25 14:31 Albuterol 20 mg ONCE ONCE NEB 04/12/25 14:15 04/12/25 14:17 DC 04/12/25 14:31 Magnesium Sulfate/ Dextrose 100 ml @ 100 mls/hr ONCE ONCE IV 04/12/25 14:15 04/12/25 15:14 DC 04/12/25 14:54 Methylprednisolone Sodium Succinate 125 mg ONCE ONCE IV 04/12/25 14:15 04/12/25 14:17 DC 04/12/25 14:53 Departure 1 Departure Time of Disposition: 14:23 Impression: Primary Impression: Acute respiratory failure Qualified Codes: J96.01 - Acute respiratory failure with hypoxia Additional Impression: Acute asthma exacerbation Qualified Codes: J45.41 - Moderate persistent asthma with (acute) exacerbation Disposition: ADMITTED INPATIENT Admit to: Med Surg Condition: Guarded Critical Care Note Critical Care Time?: Yes (90 min-critical care time only) Stability Stability form required: No Heart Score Heart Score: Heart Score Response (Comments) Value History N/A 0 EKG N/A 0 Age N/A 0 Risk Factors N/A 0 Troponin N/A 0 Total 0 I personally scribed for AMAN CARRINGTON MD ([email or web address]) on 04/12/25 at 14:17. Electronically submitted by Juan Carlos Funk ([email or web address]). I personally scribed for AMAN CARRINGTON MD ([email or web address]) on 04/12/25 at 14:56. Electronically submitted by Juan Carlos Funk ([email or web address]). AMAN CARRINGTON MD Apr 12, 2025 14:17
[2025-04-12] MEDS: IPRATROPIUM BROM 0.5 MG/2.5ML INH SOL NEB ONE ×2 (14:31)
[2025-04-12] MEDS: ALBUTEROL SULF 2.5 MG/0.5ML(0.5%) NEB SOLN NEB ONE ×2 (14:31)
[2025-04-12] MEDS: methylPREDNISolone SOD SUCC 125 MG/2 ML VL IV ONE (14:53)
[2025-04-12] MEDS: MAGNESIUM SULFATE 1GM/100ML 100 ML IV ONE (14:54)
--- NOTE | 2025-04-12 14:54 | DVH ---
EXAM: XY CHEST PORTABLE HISTORY: sob COMPARISON: XY CHEST XRAY 1 VIEW on DOS: 04/02/25, XY CHEST TWO VIEWS ROUTINE on DOS: 03/26/25, XY CHES T XRAY 1 VIEW on DOS: 03/25/25, XY CHEST PORTABLE on DOS: 03/11/25, XY CHEST PORTABLE on DOS: 02/15/25 TECHNIQUE: Portable upright AP view of the chest was performed. FINDINGS: No pneumothorax, consolidative infiltrates, or pulmonary edema. The heart is not enlarged. There is a bundant overlying adipose tissue. IMPRESSION: Obesity without evidence of acute intrathoracic process.
[2025-04-12 15:06] VITALS: PULSE 116; RESP 24; O2SAT 99
[2025-04-12 15:13] LABS: Sodium 141 mmol/L (136-145)
[2025-04-12 15:14] LABS: Anion Gap 12 (5-15); Calcium 9.3 mg/dL (8.7-10.4); Carbon Dioxide 21 mmol/L (20-31)
[2025-04-12 15:15] LABS: Chloride 108 mmol/L (98-107); Potassium 3.5 mmol/L (3.5-5.1)
[2025-04-12 15:18] LABS: Hematocrit 40.5 % (36.0-46.0); Hemoglobin 14.0 g/dL (12.2-16.2); Mean Corpuscular Hemoglobin 28.3 pg (28.0-32.0); Mean Corpuscular Volume 81.7 fL (80.0-100.0); Nucleated Red Blood Cells % 0.2 %
[2025-04-12 15:19] LABS: BUN/Creatinine Ratio 13.2 (10.0-20.0); Blood Urea Nitrogen 10 mg/dL (9-23); Glucose 99 mg/dL (74-106)
[2025-04-12 16:48] LABS: Base Excess -2.3 mmol/L (-2.0-3.0)
[2025-04-12 16:51] VITALS: BP 106/69; PULSE 109; RESP 18; TEMP 97.3; O2SAT 100
--- NOTE | 2025-04-12 16:53 | DVHHP2 ---
Admitting Diagnosis: Shortness of breaths History of Present Illness This is a 44 year old female presenting to the ED with chief complaint of SOB. Patient reports that she has been experiencing SOB with associated expiratory wheezing since 1am this morning. Patient relays that she used her inhaler with no relief in symptoms noted. Patient states that her last asthma attack was about 2-3 weeks ago. Patient notes she has been intubated in the past. Patient denies any chest pain, cough, syncope, or fever. 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 Family History Family History: Unknown Social History Smoker: Non-Smoker Alcohol: Denies ETOH Use Drugs: Denies Drug Use Lives In: Home Patient Family History: Cardiovascular disease G8 MOTHER Cerebrovascular accident (CVA) G8 MOTHER G8 FATHER Diabetes mellitus G8 MOTHER G8 FATHER G8 MOTHER Diabetes mellitus G8 MOTHER G8 FATHER G8 MOTHER FH: CHF (congestive heart failure) G8 MOTHER FH: bipolar disorder G8 MOTHER FH: cancer G8 MOTHER G8 FATHER FH: myocardial infarction G8 MOTHER FH: throat cancer G8 FATHER FHx: stroke G8 MOTHER G8 FATHER Hypertension G8 FATHER Allergies: Coded Allergies: Ibuprofen (Verified Allergy, Unknown, 04/25/23) Levothyroxine (Verified Allergy, Unknown, 04/25/23) Home Meds Active Scripts Prednisone (Prednisone) 20 Mg Tab, 40 MG PO DAILY for 3 Days, #6 TAB daily 40 mg after food in the morning Prov:JAY FIGUEREDO RESIDENT 03/13/25 Albuterol Sulfate (Ventolin) 2.5 Mg/0.5 Ml Nb, 2.5 MG NEB Q4HPRN PRN for 30 Days, #30 INH Prov:MAXIME GRIDER RESIDENT 01/11/24 Reported Medications Montelukast Sodium (MONTELUKAST SODIUM) 10 Mg Tab, 1 TAB PO DAILY 08/02/24 Docusate Sodium (Colace) 100 Mg Cap, 100 MG PO DAILY for CONSTIPATION, CAP 01/08/24 Cholecalciferol (VITAMIN D3) 2,000 Unit Tab, 5000 UNIT OR QWEEKLY for LOW VITAMIN D, TAB 01/08/24 Cyclobenzaprine Hcl (Cyclobenzaprine Hcl) 10 Mg Tab, 5 MG PO BID for MUSCLE RELAXANT for 30 Days, MG 11/30/23 Oxycodone W/ Acetaminophen (Apap/Oxycodone) 1 Tab Tab, 1 TAB PO QID PRN for BACK PAIN,, #90 TAB 10/325 08/27/23 Ferrous Sulfate (Ferosul) 325 Mg Tab, 325 PO DAILY for ANEMIA 03/03/23 Gabapentin (Gabapentin) 300 Mg Cap, 300 MG PO BID PRN for NEUROPATHRY LEG PAIN 03/02/23 Current Medications Current Medications Medications (Trade) Dose Ordered Sig/Jessica Route PRN Reason Start Time Stop Time Status Last Admin Albuterol (Ventolin Medneb) 20 mg ONCE STAT NEB 04/12/25 18:04 04/12/25 18:07 DC Vital Signs Vital Signs Date Time Temp Pulse Resp B/P (MAP) Pulse Ox O2 Delivery O2 Flow Rate FiO2 04/12/25 18:22 110 34 124/78 (93) 99 04/12/25 16:51 97.3 97.3 04/12/25 15:06 Bi-Pap+ 50 50 04/12/25 14:31 4 Physical Exam Generally-44 years old woman, overweight, lying in bed. No apparent distress HEENT-atraumatic normocephalic Heart-regular rate and rhythm Lungs decreased breath sounds throughout the lung Abdomen soft nontender nondistended Musculoskeletal-no edema cyanosis Neuro-AO x3, no focal deficits SEPSIS Sepsis Screen Date sepsis recognized/suspect: Apr 12, 2025 Time Sepsis recognized/suspect: 1411 Recent Procedure: No On Antibiotic Therapy: No Respiratory Rate >20: Yes Heart Rate >90: Yes Temp<36 C (96.8 F) or >38.3 C: No SBP <90 or MAP <65 mmHG: No New Acute Mental Status Change: No Is the patient on CPAP, BIPAP,: No Physician Orders Chest Portable (04/12/25 14:15) Urinalysis (04/12/25 14:15) BIPAP (04/12/25 15:18) Abg W/ Co-Ox (04/12/25 16:00) Admit (04/12/25 18:21) Code Status (04/12/25 18:21) Vital Signs .PER UNIT PROTOCOL (04/12/25 18:21) Review Orders With Adm. (04/12/25 18:21) Encourage Activity As Tolerate (04/12/25 18:21) Regular Diet (04/12/25 Dinner) Sodium Chloride Lock (Saline Lock Ns) (04/12/25 22:00) Docusate Sodium Capsule (Colace Capsule) (04/12/25 18:30) Acetaminophen Tablet (Tylenol Tablet) (04/12/25 18:30) Notify Md Of Changes From Base (04/12/25 18:21) Advance Directive (04/12/25 18:21) Patient Condition (04/12/25 18:21) Allergies (04/12/25 18:21) Hydrocodone-Acet 5/325mg Tab (Graham 5/32 (04/12/25 18:30) Ondansetron Hcl (Zofran) (04/12/25 18:30) Lovenox 40mg (04/13/25 10:00) Methylprednisolone Sod Succ (Solu Medrol (04/12/25 22:00) Comprehensive Metabolic Panel (04/13/25 05:00) Comprehensive Metabolic Panel (04/14/25 05:00) Comprehensive Metabolic Panel (04/15/25 05:00) Comprehensive Metabolic Panel (04/16/25 05:00) Comprehensive Metabolic Panel (04/17/25 05:00) Complete Blood Count (04/13/25 05:00) Complete Blood Count (04/14/25 05:00) Complete Blood Count (04/15/25 05:00) Complete Blood Count (04/16/25 05:00) Complete Blood Count (04/17/25 05:00) Albuterol Medneb (Ventolin Medneb) (04/13/25 06:00) Vital Signs Date Time Temp Pulse Resp B/P (MAP) Pulse Ox O2 Delivery O2 Flow Rate FiO2 04/12/25 18:22 110 34 124/78 (93) 99 04/12/25 16:51 97.3 109 18 106/69 100 97.3 04/12/25 16:44 109 18 106/69 (81) 98 04/12/25 15:06 116 24 99 Bi-Pap+ 50 50 04/12/25 15:04 112 29 128/92 (104) 100 04/12/25 15:03 114 128/92 Facial BiPAP Mask 50 04/12/25 14:31 36 98 Nasal Cannula* 4 36 04/12/25 14:16 97.3 116 32 128/105 (113) 98 97.3 04/12/25 14:09 98.3 130 22 131/97 100 98.3 Laboratory Tests Test 04/12/25 14:35 White Blood Count 7.6 10^3/uL (4.4-10.8) Medications Medications Dose Ordered Sig/Jessica Route Start Time Stop Time Status Last Admin Dose Admin Albuterol 2.5 mg ONCE ONCE NEB 04/12/25 14:15 04/12/25 14:16 DC 04/12/25 14:31 Albuterol 20 mg ONCE ONCE NEB 04/12/25 14:15 04/12/25 14:17 DC 04/12/25 14:31 Magnesium Sulfate/ Dextrose 100 ml @ 100 mls/hr ONCE ONCE IV 04/12/25 14:15 04/12/25 15:14 DC 04/12/25 14:54 Methylprednisolone Sodium Succinate 125 mg ONCE ONCE IV 04/12/25 14:15 04/12/25 14:17 DC 04/12/25 14:53 Results Labs Test 04/12/25 16:35 04/12/25 15:30 04/12/25 14:35 Range/Units Blood Gas Specimen Type Arterial Blood Gas Sample Site Right radial Blood Gas Patient Temperature 37.0 Arterial Blood Date Drawn [id number] Arterial Blood pH 7.442 7.350-7.450 Arterial Blood Partial Pressure CO2 31.2 L 32.0-45.0 mmHg Arterial Blood Partial Pressure O2 196.6 H 83.0-108.0 mmHg Arterial Blood HCO3 20.8 L 21.0-28.0 mmol/L Arterial Blood Oxygen Saturation 99.4 H 94.0-98.0 % Arterial Blood Base Excess -2.3 L -2.0-3.0 mmol/L Arterial Blood Oxyhemoglobin 98.2 H 94.0-98.0 % Arterial Blood Carboxyhemoglobin 0.5 0.5-1.5 % Arterial Blood Methemoglobin 0.7 0.0-1.5 % Giacomo Test Yes Blood Gas Total Hemoglobin 13.80 12.0-16.0 g/dL Blood Gas Set Respiration Rate 12.0 Blood Gas Modality Mask - bipap FiO2 % 50.0 Blood Gas EPAP 5 Blood Gas IPAP 12 Troponin I High Sensitivity < 3 L </=34 ng/L White Blood Count 7.6 4.4-10.8 10^3/uL Red Blood Count 4.95 4.0-5.20 10^6/uL Hemoglobin 14.0 12.2-16.2 g/dL Hematocrit 40.5 36.0-46.0 % Mean Corpuscular Volume 81.7 80.0-100.0 fL Mean Corpuscular Hemoglobin 28.3 28.0-32.0 pg Mean Corpuscular Hemoglobin Concent 34.7 32.0-36.0 g/dL Red Cell Distribution Width 14.5 H 11.8-14.3 % Platelet Count 294 140-450 10^3/uL Mean Platelet Volume 7.7 6.9-10.8 fL Neutrophils (%) (Auto) 56.0 37.0-80.0 % Lymphocytes (%) (Auto) 35.6 10.0-50.0 % Monocytes (%) (Auto) 7.0 0.0-12.0 % Eosinophils (%) (Auto) 1.1 0.0-7.0 % Basophils (%) (Auto) 0.3 0.0-2.0 % Neutrophils # (Auto) 4.3 1.6-8.6 10 ^3/uL Lymphocytes # (Auto) 2.7 0.4-5.4 10 ^3/uL Monocytes # (Auto) 0.5 0-1.3 10 ^3/uL Eosinophils # (Auto) 0.1 0-0.8 10 ^3/uL Basophils # (Auto) 0 0-0.2 10 ^3/uL Nucleated Red Blood Cells 0.2 % Sodium Level 141 136-145 mmol/L Potassium Level 3.5 3.5-5.1 mmol/L Chloride Level 108 H 98-107 mmol/L Carbon Dioxide Level 21 20-31 mmol/L Anion Gap 12 5-15 Blood Urea Nitrogen 10 9-23 mg/dL Creatinine 0.76 0.550-1.02 mg/dL Glomerular Filtration Rate Calc 100 >90 mL/min BUN/Creatinine Ratio 13.2 10.0-20.0 Serum Glucose 99 74-106 mg/dL Calcium Level 9.3 8.7-10.4 mg/dL Primary Diagnosis Acute asthma exacerbation Plan Solu-Medrol 60 mg q.8 hours Albuterol and ipratropium q.6 hours awake Resume montelukast at home meds Regular diet Full code Lovenox for DVT prophylaxis PPI for GI prophylaxis Plan discussed with: Patient Problems List: (1) Acute asthma exacerbation Status: Acute Date of Service: Apr 12, 2025 Billing Provider: BRADEN SUNG MD Common Visit Codes: [id number] INP/OBS CARE (HIGH) BRADEN SUNG MD Apr 12, 2025 16:53
[2025-04-12 18:29] VITALS: BP 124/72; PULSE 106; O2SAT 100
[2025-04-12] MEDS: ALBUTEROL SULF 2.5 MG/0.5ML(0.5%) NEB SOLN NEB STA (18:29)
[2025-04-12] MEDS ORDERED: ACETAMINOPHEN 325 MG TAB PO PRN (18:30)
[2025-04-12] MEDS ORDERED: ONDANSETRON HCL 4 MG/2 ML VIAL IV PRN (18:30)
[2025-04-12] MEDS ORDERED: DOCUSATE SOD 100 MG CAP PO PRN (18:30)
[2025-04-12 19:30] VITALS: PULSE 113; RESP 20; O2SAT 98
[2025-04-12] MEDS: GABAPENTIN 300 MG CAP PO PRN (20:30)
[2025-04-12] MEDS: HYDROcodone-ACET 5/325MG TAB PO PRN (20:33)
[2025-04-12] MEDS: SODIUM CHLOR 0.9% PF (SALINE LOCK) 10ML VIAL/SYR IV SCH (22:00)
[2025-04-12 22:02] LABS: Urine Protein, UAD Negative (Negative)
[2025-04-12] MEDS: CYCLOBENZAPRINE HCL 10 MG TAB PO SCH (23:34)
[2025-04-12] MEDS: methylPREDNISolone SOD SUCC 125 MG/2 ML VL IV SCH (23:34)
[2025-04-13] VITALS (14 sets, daily range): BP systolic 95–124; BP diastolic 52–83; PULSE 85–122; RESP 16–99; TEMP 97.6–98.5; O2SAT 97–100
[2025-04-13 04:37] LABS: Hematocrit 39.8 % (36.0-46.0); Hemoglobin 13.3 g/dL (12.2-16.2); Mean Corpuscular Hemoglobin 28.0 pg (28.0-32.0); Mean Corpuscular Volume 83.9 fL (80.0-100.0); Nucleated Red Blood Cells % 0.0 %
[2025-04-13 04:54] LABS: Alanine Aminotransferase 12 U/L (7-40); Alkaline Phosphatase 99 U/L (46-116); Anion Gap 16 (5-15); BUN/Creatinine Ratio 8.4 (10.0-20.0); Calcium 9.4 mg/dL (8.7-10.4); Potassium 4.2 mmol/L (3.5-5.1); Sodium 139 mmol/L (136-145); Total Protein 7.4 g/dL (5.7-8.2)
[2025-04-13 05:00] LABS: Albumin 4.9 g/dL (3.2-4.8); Bilirubin, Total 0.3 mg/dL (0.2-1.0); Blood Urea Nitrogen 7 mg/dL (9-23); Carbon Dioxide 16 mmol/L (20-31); Chloride 107 mmol/L (98-107); Glucose 181 mg/dL (74-106)
[2025-04-13] MEDS: IPRATROPIUM BROM 0.5 MG/2.5ML INH SOL NEB SCH (06:29)
[2025-04-13] MEDS: ALBUTEROL SULF 2.5 MG/0.5ML(0.5%) NEB SOLN NEB SCH (06:29)
[2025-04-13] MEDS: ENOXAPARIN SOD 40 MG/0.4 ML SYRINGE SC SCH (08:54)
[2025-04-13] MEDS: MONTELUKAST SODIUM 10 MG TAB PO SCH (08:54)
[2025-04-13] MEDS: FERROUS SULFATE 325mg EC TAB PO SCH (08:54)
[2025-04-13] MEDS: PANTOPRAZOLE 40 MG/10 ML VIAL INJ IV SCH (08:54)
[2025-04-13] MEDS: CHOLECALCIFEROL (VITD3) 1,000UNIT=25mCg TAB PO SCH (08:55)
[2025-04-13] MEDS: OXYCODONE W/ ACETAMINOPHEN 5/325MG TABLET PO ONE (09:01)
[2025-04-13] MEDS: OXYCODONE W/ ACETAMINOPHEN 5/325MG TABLET PO PRN (15:51)
--- NOTE | 2025-04-13 16:44 | DVHPN2 ---
Subjective Events noted. Patient is here for acute asthma exacerbation. Patient has stated that she was intubated for asthma exacerbation 5 times in the past. Changes from previous H/P or p: No Changes Objective Vitals Vital Signs Date Time Temp Pulse Resp B/P (MAP) Pulse Ox O2 Delivery O2 Flow Rate FiO2 04/13/25 13:00 97.6 106 17 116/83 (94) 98 97.6 04/13/25 10:00 Nasal Cannula* 2 28 Intake/Output Intake and Output 04/13/25 07:00 Intake Total 550 ml Balance 550 ml Intake Oral 450 ml IV Total 100 ml # Voids 2 Exam HEENT pupils are reactive Neck is supple CV is S1-S2 regular rate and rhythm Respiratory bilateral expiratory rhonchi GI positive bowel sound Extremity no pedal edema RN CLINICAL DOCUMENTATION no motor deficit Medications Current Medications Medications Dose Ordered Sig/Jessica Route Start Time Stop Time Status Last Admin Dose Admin Sodium Chloride 10 ml Q8HR IV 04/12/25 22:00 04/13/25 13:50 10 ML Docusate Sodium 100 mg BIDPRN PRN PO 04/12/25 18:30 Acetaminophen 650 mg Q6HP PRN PO 04/12/25 18:30 Acetaminophen/ Hydrocodone Bitart 1 tab Q4HP PRN PO 04/12/25 18:30 04/13/25 14:11 1 TAB Ondansetron HCl 4 mg Q4HP PRN IV 04/12/25 18:30 Enoxaparin Sodium 40 mg DAILY SC 04/13/25 10:00 04/13/25 08:54 40 MG Methylprednisolone Sodium Succinate 60 mg Q8HR IV 04/12/25 22:00 04/13/25 13:50 60 MG Albuterol 2.5 mg Q6HWA NEB 04/13/25 06:00 04/13/25 12:17 2.5 MG Ipratropium Rigby 0.5 mg Q6HWA NEB 04/13/25 06:00 04/13/25 12:17 0.5 MG Cyclobenzaprine HCl 5 mg BID PO 04/12/25 22:00 04/13/25 08:54 5 MG Gabapentin 300 mg BID PRN PO 04/12/25 18:30 04/12/25 20:30 300 MG Montelukast Sodium 10 mg DAILY PO 04/13/25 10:00 04/13/25 08:54 10 MG Cholecalciferol 2,000 unit QWEEKLY PO 04/13/25 10:00 04/13/25 08:55 2,000 UNIT Ferrous Sulfate 325 mg DAILY PO 04/13/25 10:00 04/13/25 08:54 325 MG Pantoprazole Sodium 40 mg DAILY IV 04/13/25 10:00 04/13/25 08:54 40 MG Oxycodone/ Acetaminophen 2 tab Q6HP PRN PO 04/13/25 15:45 04/13/25 15:51 2 TAB Laboratory Results Laboratory Tests 04/13/25 04:15 Chemistry Test 04/13/25 04:15 Albumin 4.9 g/dL (3.2-4.8) H Calcium Level 9.4 mg/dL (8.7-10.4) Total Protein 7.4 g/dL (5.7-8.2) LFT Test 04/13/25 04:15 Alanine Aminotransferase (ALT) 12 U/L (7-40) Alkaline Phosphatase 99 U/L (46-116) Aspartate Amino Transferase (AST) 12 U/L (13-40) L Total Bilirubin 0.3 mg/dL (0.2-1.0) Urinalysis Test 04/12/25 21:40 Urine Color Light-yellow (Yellow) Urine Clarity Clear (Clear) Urine pH 5.0 (5.0-9.0) Urine Specific [place] 1.026 (1.001-1.035) Urine Protein Negative (Negative) Urine Ketones 2+ (Negative) H Urine Blood Trace /uL (Negative) H Urine Nitrite Negative (Negative) Urine Bilirubin Negative (Negative) Urine Urobilinogen Normal mg/dL (Negative) Urine Leukocyte Esterase Negative /uL (Negative) Urine RBC 2 /hpf (0 - 4) Urine Microscopic WBC 1 /HPF (0-5) Urine Squamous Epithelial Cells Few /hpf (<5) Urine Bacteria Few /hpf (None Seen) H Urine Mucus Few (None Seen) Urine Glucose 4+ mg/dL (Normal) H Assessment/Plan Assessment/Plan 44-year-old female with a known history of chronic asthma, chronic osteoporosis initially presented to the hospital with a shortness of breaths found to have 1. Acute asthma exacerbation 2. Shortness of breaths secondary to 1. 3. Peripheral neuropathy 4. Osteoporosis -med nebs, Solu-Medrol, O2 supplementation -discharge plan Plan discussed with: Patient My Orders Orders - MASHA VELARDE MD Procedure Category Date Status Time Oxycodone W/ Acet PHA 04/13/25 In Process 5/325mg Tab (Percocet 15:45 Date of Service: Apr 13, 2025 Billing Provider: MASHA VELARDE MD Common Visit Codes: [id number] INP/OBS CARE(MOD) MASHA VELARDE MD Apr 13, 2025 16:44
[2025-04-14] VITALS (10 sets, daily range): BP systolic 56–118; BP diastolic 48–82; PULSE 62–107; RESP 16–20; TEMP 97.4–98.2; O2SAT 93–100
[2025-04-14] MEDS: MELATONIN 5 MG TAB PO ONE (02:05)
[2025-04-14 07:03] LABS: Hematocrit 36.4 % (36.0-46.0); Hemoglobin 12.0 g/dL (12.2-16.2); Mean Corpuscular Hemoglobin 27.9 pg (28.0-32.0); Mean Corpuscular Volume 84.8 fL (80.0-100.0); Nucleated Red Blood Cells % 0.0 %
[2025-04-14 07:09] LABS: Albumin 4.1 g/dL (3.2-4.8); Alkaline Phosphatase 79 U/L (46-116); Anion Gap 8 (5-15); BUN/Creatinine Ratio 12.5 (10.0-20.0); Calcium 9.1 mg/dL (8.7-10.4); Carbon Dioxide 22 mmol/L (20-31); Potassium 4.6 mmol/L (3.5-5.1); Sodium 138 mmol/L (136-145); Total Protein 6.5 g/dL (5.7-8.2)
[2025-04-14 07:31] LABS: Alanine Aminotransferase < 9 U/L (7-40); Bilirubin, Total 0.2 mg/dL (0.2-1.0); Blood Urea Nitrogen 9 mg/dL (9-23); Chloride 108 mmol/L (98-107); Glucose 134 mg/dL (74-106)
[2025-04-14] MEDS ORDERED: METH4PAK PO (16:28)
--- NOTE | 2025-04-14 16:30 | DVHDS2 ---
Discharge Summary Date of Admission Apr 12, 2025 at 18:21 Date of Discharge: Apr 14, 2025 Labs/Diagnostic Data: Laboratory Results Test 04/14/25 06:04 04/12/25 21:40 04/12/25 16:35 04/12/25 15:30 White Blood Count 17.2 10^3/uL (4.4-10.8) Red Blood Count 4.29 10^6/uL (4.0-5.20) Hemoglobin 12.0 g/dL (12.2-16.2) Hematocrit 36.4 % (36.0-46.0) Mean Corpuscular Volume 84.8 fL (80.0-100.0) Mean Corpuscular Hemoglobin 27.9 pg (28.0-32.0) Mean Corpuscular Hemoglobin Concent 32.9 g/dL (32.0-36.0) Red Cell Distribution Width 14.9 % (11.8-14.3) Platelet Count 299 10^3/uL (140-450) Mean Platelet Volume 7.8 fL (6.9-10.8) Neutrophils (%) (Auto) 89.5 % (37.0-80.0) Lymphocytes (%) (Auto) 8.4 % (10.0-50.0) Monocytes (%) (Auto) 2.0 % (0.0-12.0) Eosinophils (%) (Auto) 0.0 % (0.0-7.0) Basophils (%) (Auto) 0.1 % (0.0-2.0) Neutrophils # (Auto) 15.4 10 ^3/uL (1.6-8.6) Lymphocytes # (Auto) 1.4 10 ^3/uL (0.4-5.4) Monocytes # (Auto) 0.3 10 ^3/uL (0-1.3) Eosinophils # (Auto) 0 10 ^3/uL (0-0.8) Basophils # (Auto) 0 10 ^3/uL (0-0.2) Nucleated Red Blood Cells 0.0 % Sodium Level 138 mmol/L (136-145) Potassium Level 4.6 mmol/L (3.5-5.1) Chloride Level 108 mmol/L (98-107) Carbon Dioxide Level 22 mmol/L (20-31) Anion Gap 8 (5-15) Blood Urea Nitrogen 9 mg/dL (9-23) Creatinine 0.72 mg/dL (0.550-1.02) Glomerular Filtration Rate Calc 106 mL/min (>90) BUN/Creatinine Ratio 12.5 (10.0-20.0) Serum Glucose 134 mg/dL (74-106) Calcium Level 9.1 mg/dL (8.7-10.4) Total Bilirubin 0.2 mg/dL (0.2-1.0) Aspartate Amino Transferase (AST) 10 U/L (13-40) Alanine Aminotransferase (ALT) < 9 U/L (7-40) Alkaline Phosphatase 79 U/L (46-116) Total Protein 6.5 g/dL (5.7-8.2) Albumin 4.1 g/dL (3.2-4.8) Urine Color Light-yellow (Yellow) Urine Clarity Clear (Clear) Urine pH 5.0 (5.0-9.0) Urine Specific [place] 1.026 (1.001-1.035) Urine Protein Negative (Negative) Urine Ketones 2+ (Negative) Urine Blood Trace /uL (Negative) Urine Nitrite Negative (Negative) Urine Bilirubin Negative (Negative) Urine Urobilinogen Normal mg/dL (Negative) Urine Leukocyte Esterase Negative /uL (Negative) Urine RBC 2 /hpf (0 - 4) Urine Microscopic WBC 1 /HPF (0-5) Urine Squamous Epithelial Cells Few /hpf (<5) Urine Bacteria Few /hpf (None Seen) Urine Mucus Few (None Seen) Urine Glucose 4+ mg/dL (Normal) Blood Gas Specimen Type Arterial Blood Gas Sample Site Right radial Blood Gas Patient Temperature 37.0 Arterial Blood Date Drawn [id number] Arterial Blood pH 7.442 (7.350-7.450) Arterial Blood Partial Pressure CO2 31.2 mmHg (32.0-45.0) Arterial Blood Partial Pressure O2 196.6 mmHg (83.0-108.0) Arterial Blood HCO3 20.8 mmol/L (21.0-28.0) Arterial Blood Oxygen Saturation 99.4 % (94.0-98.0) Arterial Blood Base Excess -2.3 mmol/L (-2.0-3.0) Arterial Blood Oxyhemoglobin 98.2 % (94.0-98.0) Arterial Blood Carboxyhemoglobin 0.5 % (0.5-1.5) Arterial Blood Methemoglobin 0.7 % (0.0-1.5) Giacomo Test Yes Blood Gas Total Hemoglobin 13.80 g/dL (12.0-16.0) Blood Gas Set Respiration Rate 12.0 Blood Gas Modality Mask - bipap FiO2 % 50.0 Blood Gas EPAP 5 Blood Gas IPAP 12 Troponin I High Sensitivity < 3 ng/L (</=34) Other Laboratory Tests 04/14/25 06:04 Brief Hx & Hospital Course: 44-year-old female with a known history of chronic asthma, chronic osteoporosis initially presented to the hospital with a shortness of breaths found to have acute asthma exacerbation. Patient's was treated with the med nebs, IV Solu- Medrol O2 supplementation. Patient is currently improved significantly and stable to be discharged. Patient was recommended to follow up with the PCP in 1-2 weeks. Condition at Discharge: Stable Final Diagnosis/Problems List 44-year-old female with a known history of chronic asthma, chronic osteoporosis initially presented to the hospital with a shortness of breaths found to have 1. Acute asthma exacerbation 2. Shortness of breaths secondary to 1. 3. Peripheral neuropathy 4. Osteoporosis -med nebs, Solu-Medrol Discharge Disposition: Home SNF Discharge Will this Physician continue t: No Discharge Instruct/Medications Diet: Regular Activity: No Restrictions, As Tolerated Follow Up/Referral: Follow up with the PCP in 1-2 weeks. Medications: Resume home medications. New Medications: Methylprednisolone (Medrol Dosepak) 4 Mg Lonnie 4 MG PO UD, #21 TAB UAD Continued Medications: Albuterol Sulfate (Ventolin) 2.5 Mg/0.5 Ml Nb 2.5 MG NEB Q4HPRN PRN for 30 Days, #30 INH Cholecalciferol (Vitamin D3) 2,000 Unit Tab 5000 UNIT OR QWEEKLY for LOW VITAMIN D, TAB Cyclobenzaprine Hcl (Cyclobenzaprine Hcl) 10 Mg Tab 5 MG PO BID for MUSCLE RELAXANT for 30 Days, MG Docusate Sodium (Colace) 100 Mg Cap 100 MG PO DAILY for CONSTIPATION, CAP Ferrous Sulfate (Ferosul) 325 Mg Tab 325 PO DAILY for ANEMIA Gabapentin (Gabapentin) 300 Mg Cap 300 MG PO BID PRN for NEUROPATHRY LEG PAIN Montelukast Sodium (Montelukast Sodium) 10 Mg Tab 1 TAB PO DAILY Oxycodone W/ Acetaminophen (Apap/Oxycodone) 1 Tab Tab 1 TAB PO QID PRN for BACK PAIN,, #90 TAB 10/325 Discontinued Medications: Prednisone (Prednisone) 20 Mg Tab 40 MG PO DAILY for 3 Days, #6 TAB daily 40 mg after food in the morning Scheduled Cholecalciferol (Vitamin D3), 5,000 UNIT OR QWEEKLY, (Reported) Cyclobenzaprine Hcl (Cyclobenzaprine Hcl), 5 MG PO BID, (Reported) Docusate Sodium (Colace), 100 MG PO DAILY, (Reported) Ferrous Sulfate (Ferosul), 325 PO DAILY, (Reported) Methylprednisolone (Medrol Dosepak), 4 MG PO UD Montelukast Sodium (Montelukast Sodium), 1 TAB PO DAILY, (Reported) Prednisone (Prednisone), 40 MG PO DAILY Scheduled PRN Albuterol Sulfate (Ventolin), 2.5 MG NEB Q4HPRN PRN Gabapentin (Gabapentin), 300 MG PO BID PRN for NEUROPATHRY LEG PAIN, (Reported) Oxycodone W/ Acetaminophen (Apap/Oxycodone), 1 TAB PO QID PRN for BACK PAIN,, (Reported) Discharge Statement: "Patient was advised to return to the ER or call 911 if any headaches, dizziness, shortness of breath, chest pain, abdominal pain, bleeding, fevers, or worsening of medical condition. Patient was counseled about treatment plan, medications, possible side effects, patientverbalized understanding. All questions were answered to the best of my ability. This discharge took greater then 30 minutes in planning, reviewing documentation, counseling the patient, and discussing with other team members." ASSESSMENT ASSESSMENT Assessment 44-year-old female with a known history of chronic asthma, chronic osteoporosis initially presented to the hospital with a shortness of breaths found to have 1. Acute asthma exacerbation 2. Shortness of breaths secondary to 1. 3. Peripheral neuropathy 4. Osteoporosis -med nebs, Solu-Medrol Date of Service: Apr 14, 2025 Billing Provider: MASHA VELARDE MD Common Visit Codes: 76215-GYH/OBS DISCH DAY >30min MASHA VELARDE MD Apr 14, 2025 16:30
== END 2025-04-14 17:57 | disposition home or self-care (01) | DRG 141 ==
LOC: ER 14:07 → OVERFLOW 18:21 → EAST 04-13 11:15
PROVIDERS: ADMIT Internal Medicine; ATTEND Internal Medicine
PROC: 5A09357 Assistance with Respiratory Ventilation, Less than 24 Consecutive Hours, Continuous Positive Airway Pressure (ICD-10-PCS; principal; 2025-04-12)
PROC: 05HA33Z Insertion of Infusion Device into Left Brachial Vein, Percutaneous Approach (ICD-10-PCS; 2025-04-13)
PROC: B54NZZA Ultrasonography of Left Upper Extremity Veins, Guidance (ICD-10-PCS; 2025-04-13)
DX: J45.21 Mild intermittent asthma with (acute) exacerbation (principal); R65.10 Systemic inflammatory response syndrome (SIRS) of non-infectious origin without acute organ dysfunction; E11.40 Type 2 diabetes mellitus with diabetic neuropathy, unspecified; M81.0 Age-related osteoporosis without current pathological fracture; F41.9 Anxiety disorder, unspecified; Z90.49 Acquired absence of other specified parts of digestive tract; Z98.891 History of uterine scar from previous surgery; Z82.49 Family history of ischemic heart disease and other diseases of the circulatory system; Z80.8 Family history of malignant neoplasm of other organs or systems; Z88.6 Allergy status to analgesic agent; Z79.899 Other long term (current) drug therapy
CPT/HCPCS: 36415; 36600; 71045; 80048; 80053; 81001; 82805; 84484; 85025; 94640; 94644; 94660; 96365; 96375; 99291; G0378; J2470

== ENCOUNTER 2025-04-20 15:38 | Inpatient (IN) | payer MEDICAID ==
[~2025-04-20] VITALS: Ht 162.6 cm; Wt 90.1 kg
[~2025-04-20 15:38] MED LIST changes: +METH4PAK PO; -PRED20TA2 PO
[2025-04-20] MEDS: ALBUTEROL SULF 2.5 MG/0.5ML(0.5%) NEB SOLN NEB ONE (15:45)
--- NOTE | 2025-04-20 15:56 | ED.PDOC ---
History of Present Illness HPI Comments 44-year-old female BIBA with prior medical history of severe asthma, intubation, anemia, anxiety, COPD, thyroid: Surgical history of appendectomy, cholecystectomy, , tonsillectomy in the chief complaint of shortness a breath. That the patient had an asthma attack last month and was intubated. EMS state that the patient has started to have shortness a breath symptoms at 3:00 p.m. today and called the 15:10. When EMS arrived on scene the patient was wheezing and was saturating at 80% room air, EMS gave the patient CPAP on scene with albuterol and Ativan. In route to the ER the patient an epi. Recent blood pressure of 145/90, is on 4 L of O2 and satting at 95%. Patient gives hand signals of chest tightness. Denies chills, fever, N/V/D, CP. No other associated symptoms, modifiers, recent injuries or sick contacts present at this time. Chief Complaint: Shortness of Breath Time Seen by MD: 15:50 Primary Care Provider: UNKNOWN Reviewed Notes: Nurses Notes, Director Of Volunteer Services Notes, Medications, Allergies Allergies: Coded Allergies: Ibuprofen (Verified Allergy, Unknown, 04/25/23) Levothyroxine (Verified Allergy, Unknown, 04/25/23) Home Meds Active Scripts Methylprednisolone (Medrol Dosepak) 4 Mg Lonnie, 4 MG PO UD, #21 TAB UAD Prov:MASHA VELARDE MD 04/14/25 Albuterol Sulfate (Ventolin) 2.5 Mg/0.5 Ml Nb, 2.5 MG NEB Q4HPRN PRN for 30 Days, #30 INH Prov:MAXIME GRIDER RESIDENT 01/11/24 Reported Medications Montelukast Sodium (MONTELUKAST SODIUM) 10 Mg Tab, 1 TAB PO DAILY 08/02/24 Docusate Sodium (Colace) 100 Mg Cap, 100 MG PO DAILY for CONSTIPATION, CAP 01/08/24 Cholecalciferol (VITAMIN D3) 2,000 Unit Tab, 5000 UNIT OR QWEEKLY for LOW VITAMIN D, TAB 01/08/24 Cyclobenzaprine Hcl (Cyclobenzaprine Hcl) 10 Mg Tab, 5 MG PO BID for MUSCLE RELAXANT for 30 Days, MG 11/30/23 Oxycodone W/ Acetaminophen (Apap/Oxycodone) 1 Tab Tab, 1 TAB PO QID PRN for BACK PAIN,, #90 TAB 10/325 08/27/23 Ferrous Sulfate (Ferosul) 325 Mg Tab, 325 PO DAILY for ANEMIA 03/03/23 Gabapentin (Gabapentin) 300 Mg Cap, 300 MG PO BID PRN for NEUROPATHRY LEG PAIN 03/02/23 Discontinued Scripts Prednisone (Prednisone) 20 Mg Tab, 40 MG PO DAILY for 3 Days, #6 TAB daily 40 mg after food in the morning Prov:JAY FIGUEREDO RESIDENT 03/13/25 Information Source: Patient (Hand signals), Emergency Med Personnel Mode of Arrival: EMS Severity: Moderate Timing: Minutes Duration: Since onset, Minutes Prehospital treatment: None Past Medical History PAST MEDICAL HISTORY: Anemia, Anxiety, Asthma (Severe), COPD, Thyroid Past Medical History (Other): Intubated one month ago Surgical History: Appendectomy, Cholecystectomy, , Tonsillectomy [employer] MA[employer]ACHINE [employer]ER History: Denies all [employer]AG MA[employer]INE [employer]ER Hx Family History Family History: Reviewed,noncontributory to illness, Unknown Social History Smoker: Non-Smoker Alcohol: Denies ETOH Use Drugs: Denies Drug Use Lives In: Home Constitutional: denies: chills, diaphoresis, fatigue, fever, malaise, sweats, weakness, others EENTM: denies: blurred vision, double vision, ear bleeding, ear discharge, ear drainage, ear pain, ear ringing, eye pain, eye redness, hearing loss, mouth pain, mouth swelling, nasal discharge, nose bleeding, nose congestion, nose pain, photophobia, tearing, throat pain, throat swelling, voice changes, others Respiratory: reports: shortness of breath, wheezing; denies: cough, hemoptysis, orthopnea, SOB at rest, SOB with excertion, stridor, others Cardiovascular: reports: chest pain (No chest pain but chest tightness); denies: dizzy spells, diaphoresis, Dyspnea on exertion, edema, irregular heart beat, left arm pain, lightheadedness, palpitations, PND, syncope, others Gastrointestinal: denies: abdomen distended, abdominal pain, blood streaked bowels, constipated, diarrhea, dysphagia, difficulty swallowing, hematemesis, melena, nausea, poor appetite, poor fluid intake, rectal bleeding, rectal pain, vomiting, others Genitourinary: denies: abnormal vagina bleeding, burning, dyspareunia, dysuria, flank pain, frequency, hematuria, incontinence, pain, , vagina d ischarge, urgency, others Neurological: denies: dizziness, fainting, headache, left sided numbness, left sided weakness, numbness, paresthesia, pre-existing deficit, right sided numbness, right sided weakness, seizure, speech problems, tingling, tremors, weakness, others Musculoskeletal: denies: back pain, gout, joint pain, joint swelling, muscle pain, muscle stiffness, neck pain, others Integumetry: denies: bruises, change in color, change in hair/nails, dryness, laceration, lesions, lumps, rash, wounds, others Allergic/Immunocompromised: denies: Difficulty Healing, Frequent Infections, Hives, Itching, others Hematologic/Lymphatic: denies: anemia, blood clots, easy bleeding, easy bruising, swollen glands, others Endocrine: denies: excessive hunger, excessive sweating, excessive thirst, excessive urination, flushing, intolerance to cold, intolerance to heat, unexplained weight gain, unexplained weight loss, others Psychiatric: denies: anxiety, bipolar disorder, depression, hopeless, panic disorder, schizophrenia, sleepless, suicidal, others All Other Systems: Reviewed and Negative Physical Exam General Appearance: Moderate Distress, Normal HEENT: Normal ENT Inspection, Pharynx Normal, TMs Normal Neck: Full Range of Motion, Non-Tender, Normal, Normal Inspection Respiratory: Accessory Muscle Use, Chest Non-Tender, Respiratory Distress, Wheezing Cardiovascular: No Edema, No JVD, No Murmur, No Gallop, Normal Peripheral Pulses, Regular Rate/Rhythm Breast Exam: Deferred Gastrointestinal: No Organomegaly, Non Tender, No Pulsatile Mass, Normal Bowel Sounds, Soft Genitalia: Deferred Pelvic: Deferred Rectal: Deferred Extremities: No calf tenderness, Normal capillary refill, Normal inspection, Normal range of motion, Non-tender, No pedal edema Musculoskeletal : Apperance: Normal Neurologic: Alert, blending tank tender II-XII nml as Tested, No Motor Deficits, Normal Affect, Normal Mood, No Sensory Deficits Cerebellar Function: NOT DONE Reflexes: NOT DONE Skin: Dry, Normal Color, Warm Peripheral Pulses: 3+ Radial (R), 3+ Radial (L) Lymphatic: No Adenopathy Was a procedure done? Was a procedure done?: No Differential Dx Considerations may include: Asthma exacerbation Electrolyte imbalance X-Ray, Labs, Meds, VS Vital Signs Date Time Temp Pulse Resp B/P (MAP) Pulse Ox O2 Delivery O2 Flow Rate FiO2 04/20/25 16:51 100 Bi-Pap+ 70 70 04/20/25 16:47 113 22 100 Bi-Pap+ 70 70 04/20/25 16:43 97.6 116 22 156/50 (85) 100 97.6 04/20/25 16:00 120 04/20/25 15:45 111 Facial BiPAP Mask 100 04/20/25 15:38 99.2 120 30 145/90 94 99.2 Lab Test 04/20/25 16:01 Range/Units White Blood Count 12.9 H 4.4-10.8 10^3/uL Red Blood Count 5.16 4.0-5.20 10^6/uL Hemoglobin 14.3 # 12.2-16.2 g/dL Hematocrit 44.1 # 36.0-46.0 % Mean Corpuscular Volume 85.5 80.0-100.0 fL Mean Corpuscular Hemoglobin 27.6 L 28.0-32.0 pg Mean Corpuscular Hemoglobin Concent 32.3 32.0-36.0 g/dL Red Cell Distribution Width 15.0 H 11.8-14.3 % Platelet Count 309 140-450 10^3/uL Mean Platelet Volume 7.7 6.9-10.8 fL Neutrophils (%) (Auto) 74.2 37.0-80.0 % Lymphocytes (%) (Auto) 21.7 10.0-50.0 % Monocytes (%) (Auto) 4.0 0.0-12.0 % Eosinophils (%) (Auto) 0.0 0.0-7.0 % Basophils (%) (Auto) 0.1 0.0-2.0 % Neutrophils # (Auto) 9.6 H 1.6-8.6 10 ^3/uL Lymphocytes # (Auto) 2.8 0.4-5.4 10 ^3/uL Monocytes # (Auto) 0.5 0-1.3 10 ^3/uL Eosinophils # (Auto) 0 0-0.8 10 ^3/uL Basophils # (Auto) 0 0-0.2 10 ^3/uL Nucleated Red Blood Cells 0.0 % Sodium Level 140 136-145 mmol/L Potassium Level 3.3 L 3.5-5.1 mmol/L Chloride Level 106 98-107 mmol/L Carbon Dioxide Level 20 20-31 mmol/L Anion Gap 14 5-15 Blood Urea Nitrogen < 5 L 9-23 mg/dL Creatinine 0.71 0.550-1.02 mg/dL Glomerular Filtration Rate Calc 108 >90 mL/min BUN/Creatinine Ratio 7.0 L 10.0-20.0 Serum Glucose 126 H 74-106 mg/dL Calcium Level 9.4 8.7-10.4 mg/dL Troponin I High Sensitivity < 3 L </=34 ng/L Current Medications Medications (Trade) Dose Ordered Sig/Jessica Route Start Time Stop Time Status Last Admin Albuterol (Ventolin Medneb) 20 mg ONCE ONCE NEB 04/20/25 15:45 04/20/25 15:46 DC 04/20/25 15:45 Methylprednisolone Sodium Succinate (Solu Medrol) 125 mg ONCE ONCE IV 04/20/25 16:00 04/20/25 16:01 DC 04/20/25 16:43 Patient alert. She came in on CPAP. Shortness a breath. Was given steroid. Was given breathing treatment. Placed on BiPAP. Reviewed her previous visit. She comes here regularly for the same symptom. WBC elevated pain Was given Rocephin. Was given azithromycin. Explained to the patient. Continue monitoring. Time of 1ST Reevaluation: 16:20 Reevaluation 1ST: Unchanged Patient Education/Counseling: Diagnosis, Treatment, Prognosis Family Education/Counseling: No Family Present SEPSIS Sepsis Screen Physician Orders BIPAP (04/20/25 15:41) Chest Portable (04/20/25 15:49) Urinalysis (04/20/25 15:49) Troponin-I Hs (04/20/25 16:49) Troponin-I Hs (04/20/25 18:49) Abg W/ Co-Ox (04/20/25 18:00) Vital Signs Date Time Temp Pulse Resp B/P (MAP) Pulse Ox O2 Delivery O2 Flow Rate FiO2 04/20/25 16:51 100 Bi-Pap+ 70 70 04/20/25 16:47 113 22 100 Bi-Pap+ 70 70 04/20/25 16:43 97.6 116 22 156/50 (85) 100 97.6 04/20/25 16:00 120 04/20/25 15:45 111 Facial BiPAP Mask 100 04/20/25 15:38 99.2 120 30 145/90 94 99.2 Laboratory Tests Test 04/20/25 16:01 White Blood Count 12.9 10^3/uL (4.4-10.8) H Medications Medications Dose Ordered Sig/Jessica Route Start Time Stop Time Status Last Admin Dose Admin Albuterol 20 mg ONCE ONCE NEB 04/20/25 15:45 04/20/25 15:46 DC 04/20/25 15:45 Methylprednisolone Sodium Succinate 125 mg ONCE ONCE IV 04/20/25 16:00 04/20/25 16:01 DC 04/20/25 16:43 Departure 1 Departure Time of Disposition: 16:56 Impression: Primary Impression: Acute respiratory failure Qualified Codes: J96.01 - Acute respiratory failure with hypoxia Additional Impression: Acute asthma exacerbation Qualified Codes: J45.41 - Moderate persistent asthma with (acute) exacerbation Disposition: ADMITTED INPATIENT Admit to: Med Surg Condition: Guarded Critical Care Note Critical Care Time?: Yes (90 min-critical care time only) Stability Stability form required: No Heart Score Heart Score: Heart Score Response (Comments) Value History N/A 0 EKG N/A 0 Age N/A 0 Risk Factors N/A 0 Troponin N/A 0 Total 0 I personally scribed for AMAN CARRINGTON MD ([email or web address]) on 04/20/25 at 15:56. Electronically submitted by Stalin Alegre ([email or web address]). I personally scribed for AMAN CARRINGTON MD ([email or web address]) on 04/20/25 at 15:57. Electronically submitted by Stalin Alegre ([email or web address]). AMAN CARRINGTON MD Apr 20, 2025 15:56
[2025-04-20] MEDS ORDERED: ALBUTEROL SULF 2.5 MG/0.5ML(0.5%) NEB SOLN NEB ONE (16:00)
[2025-04-20 16:17] LABS: Hematocrit 44.1 % (36.0-46.0); Hemoglobin 14.3 g/dL (12.2-16.2); Mean Corpuscular Hemoglobin 27.6 pg (28.0-32.0); Mean Corpuscular Volume 85.5 fL (80.0-100.0); Nucleated Red Blood Cells % 0.0 %
[2025-04-20] MEDS: ALBUTEROL SULF 2.5 MG/0.5ML(0.5%) NEB SOLN ONE (16:17)
[2025-04-20 16:25] LABS: Anion Gap 14 (5-15); Chloride 106 mmol/L (98-107); Sodium 140 mmol/L (136-145)
[2025-04-20 16:26] LABS: Calcium 9.4 mg/dL (8.7-10.4)
[2025-04-20 16:30] LABS: Carbon Dioxide 20 mmol/L (20-31); Potassium 3.3 mmol/L (3.5-5.1)
--- NOTE | 2025-04-20 16:42 | DVH ---
CHEST RADIOGRAPH Indication: sob Technique: Single frontal view of the chest was obtained Comparison: XY CHEST PORTABLE on DOS: 04/12/25, XY CHEST XRAY 1 VIEW on DOS: 04/02/25, XY CHEST XRAY 1 VIEW on DOS: 03/25/25 FINDINGS: Lines and Tubes: None Lungs: No focal consolidation. Pleura: No effusion. No pneumothorax. Cardiomediastinal contours: Unremarkable Bones: No acute osseous abnormality. IMPRESSION: No acute cardiopulmonary disease.
[2025-04-20] MEDS: methylPREDNISolone SOD SUCC 125 MG/2 ML VL IV ONE (16:43)
[2025-04-20 16:47] VITALS: PULSE 113; RESP 22; O2SAT 100
[2025-04-20 16:48] LABS: BUN/Creatinine Ratio 7.0 (10.0-20.0); Blood Urea Nitrogen < 5 mg/dL (9-23); Glucose 126 mg/dL (74-106)
[2025-04-20] MEDS: AZITHROMYCIN 500MG/ 250ML 250 ML IV ONE (17:15)
[2025-04-20 18:04] VITALS: BP 131/84; PULSE 98; RESP 22; TEMP 98.1; O2SAT 100
[2025-04-20 18:33] LABS: Base Excess -1.1 mmol/L (-2.0-3.0)
[2025-04-20 20:30] VITALS: BP 115/84; PULSE 88; O2SAT 99
[2025-04-20] MEDS ORDERED: ONDANSETRON HCL 4 MG/2 ML VIAL IV PRN (20:45)
[2025-04-20] MEDS ORDERED: ACETAMINOPHEN 325 MG TAB PO PRN (20:45)
[2025-04-20] MEDS ORDERED: LORazepam 2MG/ML-1ML VIAL IV PRN (21:15)
--- NOTE | 2025-04-20 21:58 | DVHHP2 ---
History of Present Illness Reason for Visit: Acute respiratory failure History of Present Illness The patient is a 44-year-old female with past medical history of anxiety, anemia, asthma, thyroid disease, and COPD who presented to [facility] ED with complaint of shortness of breaths. The patient had an asthma attack last month and was intubated. Patient's symptoms progressively get worse with wheezing, desaturating at 80% on room air, and was placed on CPAP, given breathing treatment albuterol, EN route to our facility ED by EMS. Patient was seen and evaluated in the ED, laboratory data shows WBC 12.9, platelets 309, sodium 140, potassium 3.3, BUN < 5, creatinine 0.71, glucose 126, calcium 9.4, troponin < 3, blood pressure 115/84, heart rate 92, temperature 97.6 F, O2 saturation 99% on BiPAP. Chest x-ray show no acute cardiopulmonary disease. Please see medication orders section in the computer. On my assessment, patient denied chest pain, no headache, no dizziness, no diaphoresis, currently on oxygen, no nausea, no vomiting, no fever, no chills. Patient was admitted for further evaluation and medical management. Past Medical History Anemia, Anxiety, Asthma (Severe), COPD, Thyroid Intubated 1 month ago Past Surgical History Appendectomy, Cholecystectomy, , Tonsillectomy Family History Reviewed, noncontributory to the management of this case. Past Social History The patient lives at home, denies smoking, alcohol or illicit drugs abuse. Review of Systems Constitutional: No: Fever, Chills, Sweats, Weakness, Malaise, Other Eyes: No: Pain, Vision change, Conjunctivae inflammation, Eyelid inflammation, Other, Redness ENT: No: Ear pain, Ear discharge, Nose pain, Nose discharge, Nose congestion, Mouth pain, Mouth swelling, Throat pain, Throat swelling, Other Respiratory: Shortness of breath, Wheezing; No: Cough, Dry, SOB with excertion, Hemoptysis, Pleuritic Pain, Sputum, Wheezing, Other Cardiovascular: Chest Pain; No: Palpitations, Orthopnea, Paroxysmal Noc. Dyspnea, Edema, Lt Headedness, Other Gastrointestinal: No: Nausea, Vomiting, Abdominal Pain, Diarrhea, Constipation, Melena, Hematochezia, Other Genitourinary: No Dysuria, No Frequency, No Incontinence, No Hematuria, No Re tention, No Other Musculoskeletal: No: other, neck pain, shoulder pain, arm pain, back pain, hand pain, leg pain, foot pain Skin: No: Rash, Lesions, Jaundice, Bruising, Other Neurological: No: Weakness, Numbness, Incoordination, Change in speech, Confusion, Seizures, Other Allergies: Coded Allergies: Ibuprofen (Verified Allergy, Unknown, 04/25/23) Levothyroxine (Verified Allergy, Unknown, 04/25/23) Medications Current Medications Medications Dose Ordered Sig/Jessica Route Start Time Stop Time Status Last Admin Dose Admin Gabapentin 300 mg TID PO 04/20/25 22:00 Levalbuterol HCl 0.625 mg Q6HR NEB 04/21/25 00:00 Methylprednisolone Sodium Succinate 40 mg Q8HR IV 04/20/25 22:00 Famotidine 20 mg Q12HR IV 04/20/25 22:00 Ceftriaxone Sodium 50 ml @ 100 mls/hr Q24H IV 04/21/25 17:00 Sodium Chloride 10 ml Q8HR IV 04/20/25 22:00 Acetaminophen/ Hydrocodone Bitart 1 tab Q4HP PRN PO 04/20/25 20:45 Ondansetron HCl 4 mg Q4HP PRN IV 04/20/25 20:45 Docusate Sodium 100 mg BIDPRN PRN PO 04/20/25 20:45 Acetaminophen 650 mg Q6HP PRN PO 04/20/25 20:45 Lorazepam 1 mg Q8HP PRN IV 04/20/25 21:15 Exam Vital Signs Vital Signs Date Time Temp Pulse Resp B/P (MAP) Pulse Ox O2 Delivery O2 Flow Rate FiO2 04/20/25 20:00 97.5 93 17 115/84 (94) 100 97.5 04/20/25 16:51 Bi-Pap+ 70 70 General Appearance: Alert, Oriented X3, Cooperative, No acute distress HEENT: Atraumatic, PERRLA, EOMI, Mucous membr. moist/pink Respiratory: Normal air movement, Other (On BiPAP) Cardiovascular: Regular rate, Normal S1, Normal S2, No murmurs Abdominal: Normal bowel sounds, Soft, No tenderness, No hepatospenomegaly, No masses Extremities: No clubbing, No cyanosis, No edema, Normal pulses, No tenderness/swelling Skin: No rashes, No breakdown, No significant lesion Neuro: Normal gait, Normal speech, Strength at 5/5 X4 ext, Normal tone, Sensation intact, Cranial nerves 3-12 NL, Reflexes 2+ Psych/Mental Status: Mental status NL, Mood NL Labs/Xrays Labs Test 04/20/25 18:15 04/20/25 17:10 04/20/25 16:01 Range/Units Blood Gas Specimen Type Arterial Blood Gas Sample Site Right radial Blood Gas Patient Temperature 37.0 Arterial Blood Date Drawn [id number] Arterial Blood pH 7.428 7.350-7.450 Arterial Blood Partial Pressure CO2 35.1 32.0-45.0 mmHg Arterial Blood Partial Pressure O2 268.5 H 83.0-108.0 mmHg Arterial Blood HCO3 22.7 21.0-28.0 mmol/L Arterial Blood Oxygen Saturation 99.8 H 94.0-98.0 % Arterial Blood Base Excess -1.1 -2.0-3.0 mmol/L Arterial Blood Oxyhemoglobin 99.2 H 94.0-98.0 % Arterial Blood Carboxyhemoglobin 0.1 L 0.5-1.5 % Arterial Blood Methemoglobin 0.5 0.0-1.5 % Giacomo Test Yes Blood Gas Total Hemoglobin 13.90 12.0-16.0 g/dL Blood Gas Set Respiration Rate 16.0 Blood Gas Modality Mask - bipap FiO2 % 60.0 Blood Gas EPAP 5 Blood Gas IPAP 12 Troponin I High Sensitivity < 3 L </=34 ng/L Thyroid Stimulating Hormone (TSH) 0.39 L 0.55-4.78 uIU/mL White Blood Count 12.9 H 4.4-10.8 10^3/uL Red Blood Count 5.16 4.0-5.20 10^6/uL Hemoglobin 14.3 # 12.2-16.2 g/dL Hematocrit 44.1 # 36.0-46.0 % Mean Corpuscular Volume 85.5 80.0-100.0 fL Mean Corpuscular Hemoglobin 27.6 L 28.0-32.0 pg Mean Corpuscular Hemoglobin Concent 32.3 32.0-36.0 g/dL Red Cell Distribution Width 15.0 H 11.8-14.3 % Platelet Count 309 140-450 10^3/uL Mean Platelet Volume 7.7 6.9-10.8 fL Neutrophils (%) (Auto) 74.2 37.0-80.0 % Lymphocytes (%) (Auto) 21.7 10.0-50.0 % Monocytes (%) (Auto) 4.0 0.0-12.0 % Eosinophils (%) (Auto) 0.0 0.0-7.0 % Basophils (%) (Auto) 0.1 0.0-2.0 % Neutrophils # (Auto) 9.6 H 1.6-8.6 10 ^3/uL Lymphocytes # (Auto) 2.8 0.4-5.4 10 ^3/uL Monocytes # (Auto) 0.5 0-1.3 10 ^3/uL Eosinophils # (Auto) 0 0-0.8 10 ^3/uL Basophils # (Auto) 0 0-0.2 10 ^3/uL Nucleated Red Blood Cells 0.0 % Sodium Level 140 136-145 mmol/L Potassium Level 3.3 L 3.5-5.1 mmol/L Chloride Level 106 98-107 mmol/L Carbon Dioxide Level 20 20-31 mmol/L Anion Gap 14 5-15 Blood Urea Nitrogen < 5 L 9-23 mg/dL Creatinine 0.71 0.550-1.02 mg/dL Glomerular Filtration Rate Calc 108 >90 mL/min BUN/Creatinine Ratio 7.0 L 10.0-20.0 Serum Glucose 126 H 74-106 mg/dL Calcium Level 9.4 8.7-10.4 mg/dL PATIENT: ALMA WAGGONERACCT: [id number] UNIT: [id number] : 1980 LOC: ER ROOM / BED: / AGE / SEX: 44 / F ADM STATUS: REG ER SERVICE 1549 ORDERING PHYSICIAN: AMAN CARRINGTON MD PROCEDURE(s): CXRP - CHEST PORTABLE REASON: sob ORDER NUMBER(s): [id number], ACCESSION NUMBER(s): [id number] CHEST RADIOGRAPH Indication: sob Technique: Single frontal view of the chest was obtained Comparison: XY CHEST PORTABLE on DOS: 04/12/25, XY CHEST XRAY 1 VIEW on DOS: 04/02/25, XY CHEST XRAY 1 VIEW on DOS: 03/25/25 FINDINGS: Lines and Tubes: None Lungs: No focal consolidation. Pleura: No effusion. No pneumothorax. Cardiomediastinal contours: Unremarkable Bones: No acute osseous abnormality. IMPRESSION: No acute cardiopulmonary disease. SEPSIS Sepsis Screen Date sepsis recognized/suspect: Apr 20, 2025 Time Sepsis recognized/suspect: 1650 Recent Procedure: No On Antibiotic Therapy: No Respiratory Rate >20: No Heart Rate >90: No Temp<36 C (96.8 F) or >38.3 C: No SBP <90 or MAP <65 mmHG: No New Acute Mental Status Change: No Is the patient on CPAP, BIPAP,: No Physician Orders BIPAP (04/20/25 15:41) Chest Portable (04/20/25 15:49) Urinalysis (04/20/25 15:49) Abg W/ Co-Ox (04/20/25 18:00) Gabapentin Capsule (Neurontin Capsule) (04/20/25 22:00) Levalbuterol Hcl (Xopenex Medneb) (04/21/25 00:00) Methylprednisolone Sod Succ (Solu Medrol (04/20/25 22:00) Famotidine Injection (Pepcid Injection) (04/20/25 22:00) Ceftriaxone 1gm/50ml (Rocephin) (04/21/25 17:00) Allergies (04/20/25 20:40) Code Status (04/20/25 20:40) Sodium Chloride Lock (Saline Lock Ns) (04/20/25 22:00) Oxygen Per Hour (04/20/25 20:40) Hydrocodone-Acet 5/325mg Tab ([place] 5/32 (04/20/25 20:45) Ondansetron Hcl (Zofran) (04/20/25 20:45) Docusate Sodium Capsule (Colace Capsule) (04/20/25 20:45) Complete Blood Count (04/21/25 04:00) Comprehensive Metabolic Panel (04/21/25 04:00) Cardiac Diet-2gna,Lofat,Lochol (04/21/25 Breakfast) Condition: Serious (04/20/25 20:40) Acetaminophen Tablet (Tylenol Tablet) (04/20/25 20:45) Bedrest With Bathroom Privileg (04/20/25 20:40) Sequential Compression Device (04/20/25 ) Lorazepam 2mg/Ml Inj (Ativan Inj) (04/20/25 21:15) Vital Signs Date Time Temp Pulse Resp B/P (MAP) Pulse Ox O2 Delivery O2 Flow Rate FiO2 04/20/25 20:00 97.5 93 17 115/84 (94) 100 97.5 04/20/25 18:00 100 17 131/84 (100) 100 04/20/25 16:51 100 Bi-Pap+ 70 70 04/20/25 16:47 113 22 100 Bi-Pap+ 70 70 04/20/25 16:43 97.6 116 22 156/50 (85) 100 97.6 04/20/25 16:00 120 04/20/25 15:45 111 Facial BiPAP Mask 100 04/20/25 15:38 99.2 120 30 145/90 94 99.2 Laboratory Tests Test 04/20/25 16:01 White Blood Count 12.9 10^3/uL (4.4-10.8) H Medications Medications Dose Ordered Sig/Jessica Route Start Time Stop Time Status Last Admin Dose Admin Albuterol 20 mg ONCE ONCE NEB 04/20/25 15:45 04/20/25 15:46 DC 04/20/25 15:45 20 MG Azithromycin 250 ml @ 125 mls/hr ONCE ONCE IV 04/20/25 17:00 04/20/25 18:59 DC 04/20/25 17:15 125 MLS/HR Ceftriaxone Sodium 50 ml @ 100 mls/hr ONCE ONCE IV 04/20/25 17:00 04/20/25 17:29 DC 04/20/25 17:16 100 MLS/HR Methylprednisolone Sodium Succinate 125 mg ONCE ONCE IV 04/20/25 16:00 04/20/25 16:01 DC 04/20/25 16:43 125 MG Assessment/Plan Assessment/Plan Acute respiratory failure Hypokalemia Leukocytosis, unspecified Acute respiratory failure with hypoxia Acute asthma exacerbation Moderate persistent asthma with (acute) exacerbation Plan 1. Admit to telemetry unit 2. Breathing treatment 3. Pain control management 4. IV antibiotic management 5. Management of fluids and electrolytes 6. Consultation for pulmonology 7. Diagnostic test chest x-ray 8. DVT prophylaxis-on SCDs 9. Repeat labs CBC, CMP in a.m. 10. Home medication reviewed and reconciled 11. Continue with current medical management 12. Treatment plan discussed with patient and RN. Patient verbalized understanding. Plan discussed with: Patient, Other (RN) My Orders Orders - HERBIE MOORE DNP Procedure Category Date Status Time Gabapentin Capsule PHA 04/20/25 In Process (Neurontin Capsule) 22:00 Levalbuterol Hcl PHA 04/21/25 In Process (Xopenex Medneb) 00:00 Methylprednisolone PHA 04/20/25 In Process Sod Succ (Solu Medrol 22:00 Famotidine Injection PHA 04/20/25 In Process (Pepcid Injection) 22:00 Ceftriaxone 1gm/50ml PHA 04/21/25 In Process (Rocephin) 17:00 Allergies TARAN 04/20/25 In Process 20:40 Code Status CODE 04/20/25 Transmitted 20:40 Sodium Chloride Lock PHA 04/20/25 In Process (Saline Lock Ns) 22:00 Oxygen Per Hour RT 04/20/25 Transmitted 20:40 Hydrocodone-Acet PHA 04/20/25 In Process 5/325mg Tab ([place] 20:45 Ondansetron Hcl PHA 04/20/25 In Process (Zofran) 20:45 Docusate Sodium PHA 04/20/25 In Process Capsule (Colace 20:45 Complete Blood Count LAB 04/21/25 Verified 04:00 Comprehensive LAB 04/21/25 Verified Metabolic Panel 04:00 Cardiac DIET 04/21/25 Transmitted Diet-2gna,Lofat,Lochol Breakfast Condition: Serious TARAN 04/20/25 In Process 20:40 Acetaminophen Tablet PHA 04/20/25 In Process (Tylenol Tablet) 20:45 Bedrest With Bathroom TARAN 04/20/25 In Process Privileg 20:40 Sequential TARAN 04/20/25 In Process Compression Device Lorazepam 2mg/Ml Inj PHA 04/20/25 In Process (Ativan Inj) 21:15 Problem List: (1) Acute respiratory failure (2) Hypokalemia (3) Leukocytosis, unspecified (4) Acute respiratory failure with hypoxia (5) Acute asthma exacerbation (6) Severe persistent asthma with (acute) exacerbation Date of Service: Apr 20, 2025 Billing Provider: HERBIE MOORE DNP Common Visit Codes: [id number] INP/OBS CARE (HIGH) HERBIE MOORE DNP Apr 20, 2025 21:58
[2025-04-20] MEDS ORDERED: MORPHINE SULFATE INJ 2 MG/ml SYRG IV PRN (22:00)
[2025-04-20] MEDS ORDERED: NITROGLYCERIN 0.4 MG SL TAB SL PRN (22:00)
[2025-04-20 22:16] VITALS: BP 115/76; PULSE 80; O2SAT 100
[2025-04-20] MEDS: FAMOTIDINE (10MG/ML) 2ML VL IV SCH (23:15)
[2025-04-20] MEDS: methylPREDNISolone SOD SUCC 40 MG/ML VL IV SCH (23:15)
[2025-04-20] MEDS: GABAPENTIN 300 MG CAP PO SCH (23:15)
[2025-04-20] MEDS: HYDROcodone-ACET 5/325MG TAB PO PRN (23:16)
[2025-04-20] MEDS: SODIUM CHLOR 0.9% PF (SALINE LOCK) 10ML VIAL/SYR IV SCH (23:16)
[2025-04-20] MEDS: POTASSIUM CHL 20 Meq TABLET PO ONE (23:19)
[2025-04-21] VITALS (21 sets, daily range): BP systolic 108–131; BP diastolic 70–94; PULSE 67–106; RESP 16–24; TEMP 98–98.2; O2SAT 97–100
[2025-04-21] MEDS: LEVALBUTEROL HCL 1.25 MG/3 ML NEB NEB SCH (00:14)
[2025-04-21 01:38] LABS: Urine Protein, UAD TRACE (Negative)
[2025-04-21] MEDS: OXYCODONE W/ ACETAMINOPHEN 5/325MG TABLET PO PRN (02:18)
[2025-04-21] MEDS ORDERED: LEVALBUTEROL HCL 1.25 MG/3 ML NEB NEB SCH (03:45)
[2025-04-21] MEDS ORDERED: LEVALBUTEROL HCL 1.25 MG/3 ML NEB ONE (03:47)
[2025-04-21] MEDS: LEVALBUTEROL HCL 1.25 MG/3 ML NEB NEB ONE (04:00)
--- NOTE | 2025-04-21 05:59 | ECG ---
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
[2025-04-21] MEDS: DOCUSATE SOD 100 MG CAP PO PRN (10:02)
[2025-04-21 11:15] LABS: Hematocrit 43.0 % (36.0-46.0); Hemoglobin 13.9 g/dL (12.2-16.2); Mean Corpuscular Hemoglobin 27.6 pg (28.0-32.0); Mean Corpuscular Volume 85.5 fL (80.0-100.0)
[2025-04-21 11:24] LABS: Alanine Aminotransferase 13 U/L (7-40); Albumin 4.5 g/dL (3.2-4.8); Alkaline Phosphatase 83 U/L (46-116); Anion Gap 15 (5-15); BUN/Creatinine Ratio 11.0 (10.0-20.0); Calcium 9.4 mg/dL (8.7-10.4); Carbon Dioxide 20 mmol/L (20-31); Chloride 107 mmol/L (98-107); Potassium 3.6 mmol/L (3.5-5.1); Sodium 142 mmol/L (136-145); Total Protein 7.1 g/dL (5.7-8.2)
[2025-04-21 11:25] LABS: Bilirubin, Total 0.2 mg/dL (0.2-1.0); Blood Urea Nitrogen 8 mg/dL (9-23); Glucose 162 mg/dL (74-106)
--- NOTE | 2025-04-21 11:27 | DVHPN2 ---
Subjective The the patient is seen and examined at bedside. Complain of shortness for breath. Reviewed: Care Plan, H&P, Labs, Medications, Previous Orders, Radiology Changes from previous H/P or p: No Changes Eyes: No Pain, No Vision change, No Conjunctivae inflammation, No Eyelid inflammation, No Other, No Redness ENT: No Ear pain, No Ear discharge, No Nose pain, No Nose discharge, No Nose congestion, No Mouth pain, No Mouth swelling, No Throat pain, No Throat swelling, No Other Cardiovascular: Chest Pain; No Palpitations, No Orthopnea, No Paroxysmal Noc. Dyspnea, No Edema, No Lt Headedness, No Other Respiratory: No Cough, No Dry; Shortness of breath; No SOB with excertion; W heezing; No Hemoptysis, No Pleuritic Pain, No Sputum, No Other Gastrointestinal: No Nausea, No Vomiting, No Abdominal Pain, No Diarrhea, No Constipation, No Melena, No Hematochezia, No Other Genitourinary: No Dysuria, No Frequency, No Incontinence, No Hematuria, No Retention, No Other Musculoskeletal: No other, No neck pain, No shoulder pain, No arm pain, No back pain, No hand pain, No leg pain, No foot pain Skin: No Rash, No Lesions, No Jaundice, No Bruising, No Other Objective Vitals Vital Signs Date Time Temp Pulse Resp B/P (MAP) Pulse Ox O2 Delivery O2 Flow Rate FiO2 04/21/25 09:00 98.2 80 17 122/79 (93) 100 98.2 04/21/25 07:02 Nasal Cannula 3.0 04/21/25 07:02 32 Intake/Output Intake and Output 04/21/25 06:59 Intake Total 300 ml Balance 300 ml Intake Oral 0 ml IV Total 300 ml General Appearance: Alert, Oriented X3, Cooperative, No acute distress HEENT: Atraumatic, PERRLA, EOMI, Mucous membr. moist/pink Neck: Supple Lungs: Clear to auscultation, Normal air movement Cardiovascular: Regular rate, Normal S1, Normal S2, No murmurs, Gallops, Rubs Abdomen: Normal bowel sounds, Soft Neuro: Cranial nerves 3-12 NL Psych/Mental Status: Mental status NL Medications Current Medications Medications Dose Ordered Sig/Jessica Route Start Time Stop Time Status Last Admin Dose Admin Gabapentin 300 mg TID PO 04/20/25 22:00 9/7/25 06:34 300 MG Levalbuterol HCl 0.625 mg Q6HR NEB 04/21/25 00:00 04/21/25 07:02 0.625 MG Methylprednisolone Sodium Succinate 40 mg Q8HR IV 04/20/25 22:00 04/21/25 06:36 40 MG Famotidine 20 mg Q12HR IV 04/20/25 22:00 04/21/25 10:02 20 MG Ceftriaxone Sodium 50 ml @ 100 mls/hr Q24H IV 04/21/25 17:00 Sodium Chloride 10 ml Q8HR IV 04/20/25 22:00 04/21/25 06:40 10 ML Acetaminophen/ Hydrocodone Bitart 1 tab Q4HP PRN PO 04/20/25 20:45 04/20/25 23:16 1 TAB Ondansetron HCl 4 mg Q4HP PRN IV 04/20/25 20:45 Docusate Sodium 100 mg BIDPRN PRN PO 04/20/25 20:45 04/21/25 10:02 100 MG Acetaminophen 650 mg Q6HP PRN PO 04/20/25 20:45 Lorazepam 1 mg Q8HP PRN IV 04/20/25 21:15 Nitroglycerin 0.4 mg Q5MINP PRN SL 04/20/25 22:00 Morphine Sulfate 2 mg Q30M PRN IV 04/20/25 22:00 Oxycodone/ Acetaminophen 2 tab Q6HP PRN PO 04/21/25 01:15 04/21/25 10:02 2 TAB Levalbuterol HCl 0.625 mg ONCE NEB 04/21/25 03:45 UNV Laboratory Results Laboratory Tests 04/21/25 10:51 Chemistry Test 04/20/25 16:01 04/21/25 10:51 Calcium Level 9.4 mg/dL (8.7-10.4) 9.4 mg/dL (8.7-10.4) Albumin 4.5 g/dL (3.2-4.8) Total Protein 7.1 g/dL (5.7-8.2) LFT Test 04/21/25 10:51 Alanine Aminotransferase (ALT) 13 U/L (7-40) Alkaline Phosphatase 83 U/L (46-116) Aspartate Amino Transferase (AST) 11 U/L (13-40) L Total Bilirubin 0.2 mg/dL (0.2-1.0) HgA1c, TSH Test 04/20/25 17:10 Thyroid Stimulating Hormone (TSH) 0.39 uIU/mL (0.55-4.78) L Urinalysis Test 04/21/25 00:30 Urine Color Colorless (Yellow) Urine Clarity Turbid (Clear) H Urine pH 5.5 (5.0-9.0) Urine Specific [place] 1.022 (1.001-1.035) Urine Protein Trace (Negative) H Urine Ketones 1+ (Negative) H Urine Blood 3+ /uL (Negative) H Urine Nitrite Negative (Negative) Urine Bilirubin Negative (Negative) Urine Urobilinogen Normal mg/dL (Negative) Urine Leukocyte Esterase Negative /uL (Negative) Urine RBC 889 /hpf (0 - 4) Urine Microscopic WBC 6 /HPF (0-5) H Urine Squamous Epithelial Cells Few /hpf (<5) Urine Bacteria None seen /hpf (None Seen) Urine Mucus Few (None Seen) Urine Glucose Normal mg/dL (Normal) Blood Gas Results Test 04/20/25 18:15 Arterial Blood pH 7.428 (7.350-7.450) FiO2 % 60.0 Labs and/or images reviewed: Labs reviewed by me Assessment/Plan Assessment/Plan Acute respiratory failure Hypokalemia Leukocytosis, unspecified Acute respiratory failure with hypoxia Acute asthma exacerbation Moderate persistent asthma with (acute) exacerbation Continuing current management. Continuing with nebulizer. Continuing with Solu-Medrol. Continuing with IV antibiotic. This medical document was created using an electronic medical record system with [employer] direct computerized dictation system. Although this document has been carefully reviewed, there may still be some phonetic and typographical errors. These areas are purely typographical due to imperfections of the software programs, and do not reflect any compromise in the patient's medical care. Plan discussed with: Patient Date of Service: Apr 21, 2025 Billing Provider: HEATHER CLARK MD Common Visit Codes: [id number] INP/OBS CARE(HIGH) HEATHER CLARK MD Apr 21, 2025 11:27
[2025-04-21 12:50] LABS: Total Cells Counted 100.0 (100)
[2025-04-21 12:51] LABS: Anisocytosis Slight
--- NOTE | 2025-04-21 18:39 | DVHINCON2 ---
Date of service: Apr 21, [address] Aguillon Reason for Consultation Acute asthma History of Present Illness Home Meds Active Scripts Methylprednisolone (Medrol Dosepak) 4 Mg Lonnie, 4 MG PO UD, #21 TAB UAD Prov:MASHA VELARDE MD 04/14/25 Albuterol Sulfate (Ventolin) 2.5 Mg/0.5 Ml Nb, 2.5 MG NEB Q4HPRN PRN for 30 Days, #30 INH Prov:MAXIME GRIDER RESIDENT 01/11/24 Reported Medications Montelukast Sodium (MONTELUKAST SODIUM) 10 Mg Tab, 1 TAB PO DAILY 08/02/24 Docusate Sodium (Colace) 100 Mg Cap, 100 MG PO DAILY for CONSTIPATION, CAP 01/08/24 Cholecalciferol (VITAMIN D3) 2,000 Unit Tab, 5000 UNIT OR QWEEKLY for LOW VITAMIN D, TAB 01/08/24 Cyclobenzaprine Hcl (Cyclobenzaprine Hcl) 10 Mg Tab, 5 MG PO BID for MUSCLE RELAXANT for 30 Days, MG 11/30/23 Oxycodone W/ Acetaminophen (Apap/Oxycodone) 1 Tab Tab, 1 TAB PO QID PRN for BACK PAIN,, #90 TAB 10/325 08/27/23 Ferrous Sulfate (Ferosul) 325 Mg Tab, 325 PO DAILY for ANEMIA 03/03/23 Gabapentin (Gabapentin) 300 Mg Cap, 300 MG PO BID PRN for NEUROPATHRY LEG PAIN 03/02/23 Discontinued Scripts Prednisone (Prednisone) 20 Mg Tab, 40 MG PO DAILY for 3 Days, #6 TAB daily 40 mg after food in the morning Prov:JAY FIGUEREDO RESIDENT 03/13/25 Past Medical History Patient Family History: Cardiovascular disease G8 MOTHER Cerebrovascular accident (CVA) G8 MOTHER G8 FATHER Diabetes mellitus G8 MOTHER G8 FATHER G8 MOTHER Diabetes mellitus G8 MOTHER G8 FATHER G8 MOTHER FH: CHF (congestive heart failure) G8 MOTHER FH: bipolar disorder G8 MOTHER FH: cancer G8 MOTHER G8 FATHER FH: myocardial infarction G8 MOTHER FH: throat cancer G8 FATHER FHx: stroke G8 MOTHER G8 FATHER Hypertension G8 FATHER H&P Exam Vital Signs Vital Signs Date Time Temp Pulse Resp B/P (MAP) Pulse Ox O2 Delivery O2 Flow Rate FiO2 04/21/25 17:00 98.0 98 17 109/82 (91) 97 98.0 04/21/25 13:37 Nasal Cannula 3.0 04/21/25 13:37 32 Labs/Xrays Labs Test 04/21/25 10:51 04/21/25 00:30 04/20/25 18:15 04/20/25 17:10 Range/Units White Blood Count 13.2 H 4.4-10.8 10^3/uL Red Blood Count 5.02 4.0-5.20 10^6/uL Hemoglobin 13.9 12.2-16.2 g/dL Hematocrit 43.0 36.0-46.0 % Mean Corpuscular Volume 85.5 80.0-100.0 fL Mean Corpuscular Hemoglobin 27.6 L 28.0-32.0 pg Mean Corpuscular Hemoglobin Concent 32.3 32.0-36.0 g/dL Red Cell Distribution Width 15.2 H 11.8-14.3 % Platelet Count 322 140-450 10^3/uL Mean Platelet Volume 7.6 6.9-10.8 fL Neutrophils (%) (Auto) 37.0-80.0 % Lymphocytes (%) (Auto) 10.0-50.0 % Monocytes (%) (Auto) 0.0-12.0 % Basophils (%) (Auto) 0.0-2.0 % Neutrophils # (Auto) 1.6-8.6 10 ^3/uL Lymphocytes # (Auto) 0.4-5.4 10 ^3/uL Monocytes # (Auto) 0-1.3 10 ^3/uL Differential Total Cells Counted 100.0 100 Neutrophils % (Manual) 79 37.0-80.0 Band Neutrophils % (Manual) 3 Lymphocytes % (Manual) 14 10.0-50.0 Monocytes % (Manual) 4 0-12 Eosinophils % (Manual) 0 0-7 Basophils % (Manual) 0 0.0-2.0 Metamyelocytes % (manual) 0 Myelocytes % (Manual) 0 Promyelocytes % (Manual) 0 Blast Cells % (Manual) 0 Reactive Lymphocytes 0 Platelet Estimate Adequate Anisocytosis (manual) Slight Sodium Level 142 136-145 mmol/L Potassium Level 3.6 3.5-5.1 mmol/L Chloride Level 107 98-107 mmol/L Carbon Dioxide Level 20 20-31 mmol/L Anion Gap 15 5-15 Blood Urea Nitrogen 8 L 9-23 mg/dL Creatinine 0.73 0.550-1.02 mg/dL Glomerular Filtration Rate Calc 105 >90 mL/min BUN/Creatinine Ratio 11.0 10.0-20.0 Serum Glucose 162 H 74-106 mg/dL Calcium Level 9.4 8.7-10.4 mg/dL Total Bilirubin 0.2 0.2-1.0 mg/dL Aspartate Amino Transferase (AST) 11 L 13-40 U/L Alanine Aminotransferase (ALT) 13 7-40 U/L Alkaline Phosphatase 83 46-116 U/L Total Protein 7.1 5.7-8.2 g/dL Albumin 4.5 3.2-4.8 g/dL Urine Color Colorless Yellow Urine Clarity Turbid H Clear Urine pH 5.5 5.0-9.0 Urine Specific [place] 1.022 1.001-1.035 Urine Protein Trace H Negative Urine Ketones 1+ H Negative Urine Blood 3+ H Negative /uL Urine Nitrite Negative Negative Urine Bilirubin Negative Negative Urine Urobilinogen Normal Negative mg/dL Urine Leukocyte Esterase Negative Negative /uL Urine RBC 889 0 - 4 /hpf Urine Microscopic WBC 6 H 0-5 /HPF Urine Squamous Epithelial Cells Few <5 /hpf Urine Bacteria None seen None Seen /hpf Urine Mucus Few None Seen Urine Glucose Normal Normal mg/dL Blood Gas Specimen Type Arterial Blood Gas Sample Site Right radial Blood Gas Patient Temperature 37.0 Arterial Blood Date Drawn [id number] Arterial Blood pH 7.428 7.350-7.450 Arterial Blood Partial Pressure CO2 35.1 32.0-45.0 mmHg Arterial Blood Partial Pressure O2 268.5 H 83.0-108.0 mmHg Arterial Blood HCO3 22.7 21.0-28.0 mmol/L Arterial Blood Oxygen Saturation 99.8 H 94.0-98.0 % Arterial Blood Base Excess -1.1 -2.0-3.0 mmol/L Arterial Blood Oxyhemoglobin 99.2 H 94.0-98.0 % Arterial Blood Carboxyhemoglobin 0.1 L 0.5-1.5 % Arterial Blood Methemoglobin 0.5 0.0-1.5 % Giacomo Test Yes Blood Gas Total Hemoglobin 13.90 12.0-16.0 g/dL Blood Gas Set Respiration Rate 16.0 Blood Gas Modality Mask - bipap FiO2 % 60.0 Blood Gas EPAP 5 Blood Gas IPAP 12 Troponin I High Sensitivity < 3 L </=34 ng/L Thyroid Stimulating Hormone (TSH) 0.39 L 0.55-4.78 uIU/mL Test 04/20/25 16:01 Range/Units Eosinophils (%) (Auto) 0.0 0.0-7.0 % Eosinophils # (Auto) 0 0-0.8 10 ^3/uL Basophils # (Auto) 0 0-0.2 10 ^3/uL Nucleated Red Blood Cells 0.0 % Microbiology Date/Time Source Procedure Growth Status 04/21/25 07:30 Nose MRSA Screen - Final Complete JORI ESCAMILLA MD Apr 21, 2025 18:39
[2025-04-22] VITALS (15 sets, daily range): BP systolic 106–123; BP diastolic 70–84; PULSE 60–101; RESP 12–18; TEMP 97.8–98.3; O2SAT 95–100
[2025-04-22 07:53] LABS: Calcium 9.1 mg/dL (8.7-10.4); Chloride 103 mmol/L (98-107); Potassium 4.2 mmol/L (3.5-5.1); Sodium 139 mmol/L (136-145)
[2025-04-22 07:54] LABS: Anion Gap 11 (5-15); Carbon Dioxide 25 mmol/L (20-31)
[2025-04-22 07:59] LABS: BUN/Creatinine Ratio 11.6 (10.0-20.0)
[2025-04-22 08:00] LABS: Hematocrit 39.7 % (36.0-46.0); Hemoglobin 13.2 g/dL (12.2-16.2); Mean Corpuscular Hemoglobin 28.3 pg (28.0-32.0); Mean Corpuscular Volume 84.8 fL (80.0-100.0); Nucleated Red Blood Cells % 0.0 %
[2025-04-22 08:06] LABS: Blood Urea Nitrogen 8 mg/dL (9-23); Glucose 136 mg/dL (74-106)
--- NOTE | 2025-04-22 12:15 | DVHPN2 ---
Subjective The the patient is seen and examined at bedside. Complain of shortness for breath. Off BIPAP, feel a little bit better. Reviewed: Care Plan, H&P, Labs, Medications, Previous Orders, Radiology Changes from previous H/P or p: No Changes Eyes: No Pain, No Vision change, No Conjunctivae inflammation, No Eyelid inflammation, No Other, No Redness ENT: No Ear pain, No Ear discharge, No Nose pain, No Nose discharge, No Nose congestion, No Mouth pain, No Mouth swelling, No Throat pain, No Throat swelling, No Other Cardiovascular: Chest Pain; No Palpitations, No Orthopnea, No Paroxysmal Noc. Dyspnea, No Edema, No Lt Headedness, No Other Respiratory: No Cough, No Dry; Shortness of breath; No SOB with excertion; W heezing; No Hemoptysis, No Pleuritic Pain, No Sputum, No Other Gastrointestinal: No Nausea, No Vomiting, No Abdominal Pain, No Diarrhea, No Constipation, No Melena, No Hematochezia, No Other Genitourinary: No Dysuria, No Frequency, No Incontinence, No Hematuria, No Retention, No Other Musculoskeletal: No other, No neck pain, No shoulder pain, No arm pain, No back pain, No hand pain, No leg pain, No foot pain Skin: No Rash, No Lesions, No Jaundice, No Bruising, No Other Objective Vitals Vital Signs Date Time Temp Pulse Resp B/P (MAP) Pulse Ox O2 Delivery O2 Flow Rate FiO2 04/22/25 11:44 84 14 100 04/22/25 09:00 97.8 123/84 (97) 97.8 04/22/25 08:05 Room Air* 0 21 Intake/Output Intake and Output 04/22/25 07:00 Intake Total 1680 ml Balance 1680 ml Intake Oral 1630 ml IV Total 50 ml # Voids 3 # Bowel Movements 1 General Appearance: Alert, Oriented X3, Cooperative, No acute distress HEENT: Atraumatic, PERRLA, EOMI, Mucous membr. moist/pink Neck: Supple Lungs: Clear to auscultation, Normal air movement Cardiovascular: Regular rate, Normal S1, Normal S2, No murmurs, Gallops, Rubs Abdomen: Normal bowel sounds, Soft Neuro: Cranial nerves 3-12 NL Psych/Mental Status: Mental status NL Medications Current Medications Medications Dose Ordered Sig/Jessica Route Start Time Stop Time Status Last Admin Dose Admin Gabapentin 300 mg TID PO 04/20/25 22:00 04/22/25 05:54 300 MG Levalbuterol HCl 0.625 mg Q6HR NEB 04/21/25 00:00 04/22/25 11:36 0.625 MG Methylprednisolone Sodium Succinate 40 mg Q8HR IV 04/20/25 22:00 04/22/25 05:04 40 MG Famotidine 20 mg Q12HR IV 04/20/25 22:00 04/22/25 09:48 20 MG Ceftriaxone Sodium 50 ml @ 100 mls/hr Q24H IV 04/21/25 17:00 04/21/25 16:44 100 MLS/HR Sodium Chloride 10 ml Q8HR IV 04/20/25 22:00 04/22/25 05:06 10 ML Acetaminophen/ Hydrocodone Bitart 1 tab Q4HP PRN PO 04/20/25 20:45 04/20/25 23:16 1 TAB Ondansetron HCl 4 mg Q4HP PRN IV 04/20/25 20:45 Docusate Sodium 100 mg BIDPRN PRN PO 04/20/25 20:45 04/21/25 10:02 100 MG Acetaminophen 650 mg Q6HP PRN PO 04/20/25 20:45 Lorazepam 1 mg Q8HP PRN IV 04/20/25 21:15 Nitroglycerin 0.4 mg Q5MINP PRN SL 04/20/25 22:00 Morphine Sulfate 2 mg Q30M PRN IV 04/20/25 22:00 Oxycodone/ Acetaminophen 2 tab Q6HP PRN PO 04/21/25 01:15 04/22/25 11:07 2 TAB Levalbuterol HCl 0.625 mg ONCE NEB 04/21/25 03:45 UNV Laboratory Results Laboratory Tests 04/22/25 07:00 Chemistry Test 04/22/25 07:00 Calcium Level 9.1 mg/dL (8.7-10.4) Urinalysis Test 04/21/25 00:30 Urine Color Colorless (Yellow) Urine Clarity Turbid (Clear) H Urine pH 5.5 (5.0-9.0) Urine Specific [employer] [place] 1.022 (1.001-1.035) Urine Protein Trace (Negative) H Urine Ketones 1+ (Negative) H Urine Blood 3+ /uL (Negative) H Urine Nitrite Negative (Negative) Urine Bilirubin Negative (Negative) Urine Urobilinogen Normal mg/dL (Negative) Urine Leukocyte Esterase Negative /uL (Negative) Urine RBC 889 /hpf (0 - 4) Urine Microscopic WBC 6 /HPF (0-5) H Urine Squamous Epithelial Cells Few /hpf (<5) Urine Bacteria None seen /hpf (None Seen) Urine Mucus Few (None Seen) Urine Glucose Normal mg/dL (Normal) Microbiology Microbiology Date/Time Source Procedure Growth Status 04/21/25 07:30 Nose MRSA Screen - Final Complete Labs and/or images reviewed: Labs reviewed by me Assessment/Plan Assessment/Plan Acute respiratory failure Hypokalemia Leukocytosis, unspecified Acute respiratory failure with hypoxia Acute asthma exacerbation Moderate persistent asthma with (acute) exacerbation Continuing current management. Continuing with nebulizer. Continuing with Solu-Medrol. Continuing with IV antibiotic. This medical document was created using an electronic medical record system with [employer] computerized dictation system. Although this document has been carefully reviewed, there may still be some phonetic and typographical errors. These areas are purely typographical due to imperfections of the software programs, and do not reflect any compromise in the patient's medical care. Plan discussed with: Patient My Orders Orders - HEATHER CLARK MD Procedure Category Date Status Time *Consult CONS 04/21/25 Transmitted / 12:27 Date of Service: Apr 22, 2025 Billing Provider: HEATHER CLARK MD Common Visit Codes: [id number] INP/OBS CARE(HIGH) HEATHER CLARK MD Apr 22, 2025 12:15
[2025-04-22] MEDS ORDERED: METOCLOPRAMIDE HCL 5MG/ml INJ 2ml VIAL IV SCH (14:00)
[2025-04-23] VITALS (10 sets, daily range): BP systolic 116–126; BP diastolic 77–82; PULSE 58–90; RESP 16–18; TEMP 97.9–98.3; O2SAT 95–100
[2025-04-23] MEDS ORDERED: METOCLOPRAMIDE HCL 5MG/ml INJ 2ml VIAL IV PRN (00:30)
[2025-04-23 06:48] LABS: Chloride 103 mmol/L (98-107); Potassium 4.1 mmol/L (3.5-5.1); Sodium 140 mmol/L (136-145)
[2025-04-23 06:49] LABS: Anion Gap 11 (5-15); Calcium 8.8 mg/dL (8.7-10.4); Carbon Dioxide 26 mmol/L (20-31)
[2025-04-23 06:50] LABS: Hematocrit 38.0 % (36.0-46.0); Hemoglobin 12.5 g/dL (12.2-16.2); Mean Corpuscular Hemoglobin 27.8 pg (28.0-32.0); Mean Corpuscular Volume 84.1 fL (80.0-100.0); Nucleated Red Blood Cells % 0.1 %
[2025-04-23 06:54] LABS: BUN/Creatinine Ratio 11.9 (10.0-20.0)
[2025-04-23 07:01] LABS: Blood Urea Nitrogen 7 mg/dL (9-23); Glucose 122 mg/dL (74-106)
[2025-04-23] MEDS ORDERED: AZIT-185 PO (11:23)
[2025-04-23] MEDS ORDERED: METH4PAK PO (11:23)
== END 2025-04-23 13:27 | disposition home or self-care (01) | DRG 133 ==
LOC: EDUNIT# 15:38 → ER 15:38 → EDBD 15:38 → OVERFLOW 21:57 → TELE-WESTW 04-21 02:52
PROVIDERS: ADMIT Internal Medicine; ATTEND Internal Medicine
PROC: 5A09357 Assistance with Respiratory Ventilation, Less than 24 Consecutive Hours, Continuous Positive Airway Pressure (ICD-10-PCS; principal; 2025-04-20)
PROC: 5A09357 Assistance with Respiratory Ventilation, Less than 24 Consecutive Hours, Continuous Positive Airway Pressure (ICD-10-PCS; 2025-04-21)
DX: J96.01 Acute respiratory failure with hypoxia (principal); J45.41 Moderate persistent asthma with (acute) exacerbation; E87.6 Hypokalemia; D72.829 Elevated white blood cell count, unspecified; F41.9 Anxiety disorder, unspecified; Z90.49 Acquired absence of other specified parts of digestive tract; Z88.6 Allergy status to analgesic agent; Z79.899 Other long term (current) drug therapy; Z82.3 Family history of stroke; Z82.49 Family history of ischemic heart disease and other diseases of the circulatory system; Z83.3 Family history of diabetes mellitus; Z81.8 Family history of other mental and behavioral disorders; Z80.8 Family history of malignant neoplasm of other organs or systems
CPT/HCPCS: 36415; 36600; 71045; 80048; 80053; 81001; 82805; 84443; 84484; 85007; 85025; 85027; 87081; 93005; 94640; 94644; 94660; 96365; 96375; 99291; G0378; J3490

== ENCOUNTER 2025-05-28 20:35 | Inpatient (IN) | payer MEDICAID ==
[~2025-05-28] VITALS: Ht 167.6 cm; Wt 87.0 kg
[~2025-05-28 20:35] MED LIST changes: +AZIT-185 PO
[2025-05-28 20:40] VITALS: PULSE 118; RESP 26; O2SAT 100
[2025-05-28] MEDS: methylPREDNISolone SOD SUCC 125 MG/2 ML VL IV ONE (21:01)
[2025-05-28] MEDS: ALBUTEROL SULF 2.5 MG/0.5ML(0.5%) NEB SOLN ONE (21:12)
[2025-05-28] MEDS: IPRATROPIUM BROM 0.5 MG/2.5ML INH SOL ONE (21:13)
[2025-05-28 21:17] LABS: Hematocrit 42.0 % (36.0-46.0); Hemoglobin 14.3 g/dL (12.2-16.2); Mean Corpuscular Hemoglobin 28.3 pg (28.0-32.0); Mean Corpuscular Volume 83.3 fL (80.0-100.0); Nucleated Red Blood Cells % 0.1 %
[2025-05-28 21:25] LABS: Alanine Aminotransferase 18 U/L (7-40); Alkaline Phosphatase 113 U/L (46-116); Anion Gap 15 (5-15); BUN/Creatinine Ratio 9.5 (10.0-20.0); Bilirubin, Total 0.3 mg/dL (0.2-1.0); Calcium 9.9 mg/dL (8.7-10.4); Carbon Dioxide 23 mmol/L (20-31); Chloride 104 mmol/L (98-107); Magnesium 2.1 mg/dL (1.6-2.6); Potassium 3.6 mmol/L (3.5-5.1); Sodium 142 mmol/L (136-145); Total Protein 7.6 g/dL (5.7-8.2)
[2025-05-28] MEDS: SODIUM CHLORIDE 0.9% 1,000 ML IV ONE (21:25)
--- NOTE | 2025-05-28 21:36 | DVH ---
CHEST RADIOGRAPH Indication: SOB Technique: Single frontal view of the chest was obtained Comparison: XY CHEST PORTABLE on DOS: 04/20/25, XY CHEST PORTABLE on DOS: 04/12/25, XY CHEST XRAY 1 VIEW on DOS: 04/02/25 FINDINGS: Lines and Tubes: None Lungs: No focal consolidation. Vascular crowding due to low lung volumes. Pleura: No effusion. No pneumothorax. Cardiomediastinal contours: Unremarkable Bones: No acute osseous abnormality. IMPRESSION: Bronchovascular crowding due to low lung volumes. Otherwise, no evidence for acute cardiopulmonary d isease.
[2025-05-28 21:41] LABS: Albumin 4.9 g/dL (3.2-4.8); Blood Urea Nitrogen 8 mg/dL (9-23); Glucose 116 mg/dL (74-106)
[2025-05-28 22:45] VITALS: BP 120/83; PULSE 107; O2SAT 100
--- NOTE | 2025-05-28 22:46 | ECG ---
[facility] Test Date: 2025-05-28 Test Time: 20:45:21 Pat Name: ALMA WAGGONER Department: Room: [address] [place] [address] Gender: F Bending Roll Hand: COOKIE : 1980 Requested By: VICTORINO EWING Order Number: [id number] Reading MD: Shantanu Buitrago Measurements Intervals [place] Rate: 120 P: 14 OH: 141 QRS: -35 QRSD: 92 T: -16 QT: 396 QTc: 560 Interpretive Statements Incomplete analysis due to missing data in precordial lead(s) Sinus tachycardia Ventricular premature complex Probable left atrial enlargement Left axis deviation Borderline low voltage, extremity leads Abnormal R-wave progression, late transition Minimal ST depression Prolonged QT interval Baseline wander in lead(s) III,V1,V2,V3,V5,V6 Missing lead(s): V4 Electronically Signed On 05-29-2025 9:06:27 PDT by Shantanu Buitrago Please click the below link to view image of tracing.
--- NOTE | 2025-05-28 23:27 | ED.PDOC ---
SOB-HPI HPI Comments 44-year-old female with a history of asthma now presents by ambulance with shortness of breath. Patient was hypoxic in the field and EMS started her on CPAP. 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 Family History Family History: Reviewed,noncontributory to illness, Unknown Social History Smoker: Non-Smoker Alcohol: Denies ETOH Use Drugs: Denies Drug Use Lives In: Home Constitutional: reports: fatigue Respiratory: reports: SOB at rest, shortness of breath, stridor, wheezing All Other Systems: Reviewed and Negative Physical Exam General Appearance: Moderate Distress HEENT: Normal ENT Inspection, Pharynx Normal, TMs Normal Neck: Full Range of Motion, Non-Tender, Normal, Normal Inspection Respiratory: Respiratory Distress, Wheezing Cardiovascular: No Edema, No JVD, No Murmur, No Gallop, Normal Peripheral Pulses, Regular Rate/Rhythm Breast Exam: Deferred Gastrointestinal: No Organomegaly, Non Tender, No Pulsatile Mass, Normal Bowel Sounds, Soft Genitalia: Deferred Pelvic: Deferred Rectal: Deferred Extremities: No calf tenderness, Normal capillary refill, Normal inspection, Normal range of motion, Non-tender, No pedal edema Musculoskeletal : Apperance: Normal Neurologic: Alert, cota II-XII nml as Tested, No Motor Deficits, Normal Affect, Normal Mood, No Sensory Deficits Cerebellar Function: Normal Reflexes: Normal Skin: Dry, Normal Color, Warm Lymphatic: No Adenopathy EKG EKG : Comments Test Date: 2025-05-28 Test Time: 20:45:21 Pat Name: ALMA WAGGONER Department: Room: Gender: F 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 Was a procedure done?: No Differential Dx Differential Diagnosis: Anxiety, Asthma, Bronchitis, CHF, COPD, Dysrhythmia, Pneumonia, Pneumothorax, Pulmonary Embolism, Respiratory Distress, URI, Other X-Ray, Labs, Meds, VS Vital Signs Date Time Temp Pulse Resp B/P (MAP) Pulse Ox O2 Delivery O2 Flow Rate FiO2 05/28/25 22:45 107 120/83 100 Facial BiPAP Mask 45 05/28/25 20:45 120 05/28/25 20:40 118 26 100 Bi-Pap+ 45 45 05/28/25 20:40 121 116/83 Facial BiPAP Mask 45 05/28/25 20:40 98.1 118 26 116/83 (94) 100 98.1 05/28/25 20:36 98 Bi-Pap+ 25 100 100 05/28/25 20:36 97.0 122 30 132/90 98 97.0 Lab Test 05/28/25 21:45 05/28/25 21:21 05/28/25 20:02 Range/Units Troponin I High Sensitivity < 3 L < 3 L </=34 ng/L Blood Gas Specimen Type Venous Blood Gas Sample Site Other Blood Gas Patient Temperature 37.0 Arterial Blood Date Drawn [id number] Giacomo Test N/a Venous Blood pH 7.525 H 7.320-7.430 Venous Blood pCO2 at Patient Temp 26.7 L 38.0-54.0 mmHg Venous Blood pO2 at Patient Temp 40.5 23.0-48.0 mmHg Venous Blood HCO3 21.6 L 22.0-29.0 mmol/L Venous Bld O2 Saturation (Measured) 79.3 60.0-85.0 % Venous Blood Base Excess 0.2 -2.0-3.0 mmol/L Venous Blood Total Hemoglobin 14.1 12.0-16.0 g/dL Venous Blood Oxyhemoglobin 78.5 0.0-79.0 % Venous Blood Carboxyhemoglobin 0.7 0.5-1.5 % Venous Blood Methemoglobin 0.3 0.0-1.5 % Blood Gas Set Respiration Rate 12.0 Blood Gas Modality Mask - bipap Blood Gas Spontaneous Rate 26 FiO2 % 45.0 Blood Gas Spontaneous Tidal Volume 654 Blood Gas EPAP 5 Blood Gas IPAP 12 Bl Gas Inspiratory/Expiratory Ratio 1:3 White Blood Count 11.2 H 4.4-10.8 10^3/uL Red Blood Count 5.04 4.0-5.20 10^6/uL Hemoglobin 14.3 12.2-16.2 g/dL Hematocrit 42.0 36.0-46.0 % Mean Corpuscular Volume 83.3 80.0-100.0 fL Mean Corpuscular Hemoglobin 28.3 28.0-32.0 pg Mean Corpuscular Hemoglobin Concent 34.0 32.0-36.0 g/dL Red Cell Distribution Width 15.2 H 11.8-14.3 % Platelet Count 332 140-450 10^3/uL Mean Platelet Volume 8.0 6.9-10.8 fL Neutrophils (%) (Auto) 50.1 37.0-80.0 % Lymphocytes (%) (Auto) 42.9 10.0-50.0 % Monocytes (%) (Auto) 4.7 0.0-12.0 % Eosinophils (%) (Auto) 1.5 0.0-7.0 % Basophils (%) (Auto) 0.8 0.0-2.0 % Neutrophils # (Auto) 5.6 1.6-8.6 10 ^3/uL Lymphocytes # (Auto) 4.8 0.4-5.4 10 ^3/uL Monocytes # (Auto) 0.5 0-1.3 10 ^3/uL Eosinophils # (Auto) 0.2 0-0.8 10 ^3/uL Basophils # (Auto) 0.1 0-0.2 10 ^3/uL Nucleated Red Blood Cells 0.1 % Sodium Level 142 136-145 mmol/L Potassium Level 3.6 3.5-5.1 mmol/L Chloride Level 104 98-107 mmol/L Carbon Dioxide Level 23 20-31 mmol/L Anion Gap 15 5-15 Blood Urea Nitrogen 8 L 9-23 mg/dL Creatinine 0.84 0.550-1.02 mg/dL Glomerular Filtration Rate Calc 88 >90 mL/min BUN/Creatinine Ratio 9.5 L 10.0-20.0 Serum Glucose 116 H 74-106 mg/dL Calcium Level 9.9 8.7-10.4 mg/dL Magnesium Level 2.1 1.6-2.6 mg/dL Total Bilirubin 0.3 0.2-1.0 mg/dL Aspartate Amino Transferase (AST) 24 13-40 U/L Alanine Aminotransferase (ALT) 18 7-40 U/L Alkaline Phosphatase 113 46-116 U/L B-Type Natriuretic Peptide 1.43 0-100 pg/mL Total Protein 7.6 5.7-8.2 g/dL Albumin 4.9 H 3.2-4.8 g/dL Current Medications Medications (Trade) Dose Ordered Sig/Jessica Route Start Time Stop Time Status Last Admin Sodium Chloride 1,000 ml @ 1,000 mls/hr Q1H ONCE IV 05/28/25 21:00 05/28/25 21:59 DC 05/28/25 21:25 Methylprednisolone Sodium Succinate (Solu Medrol) 125 mg ONCE ONCE IV 05/28/25 21:00 05/28/25 21:01 DC 05/28/25 21:01 Time of 1ST Reevaluation: 22:00 Reevaluation 1ST: Unchanged Patient Education/Counseling: Diagnosis, Treatment Family Education/Counseling: No Family Present SEPSIS Sepsis Screen Date sepsis recognized/suspect: May 28, 2025 Time Sepsis recognized/suspect: 2035 Recent Procedure: No On Antibiotic Therapy: No Respiratory Rate >20: Yes Heart Rate >90: Yes Temp<36 C (96.8 F) or >38.3 C: No SBP <90 or MAP <65 mmHG: No New Acute Mental Status Change: No Is the patient on CPAP, BIPAP,: Yes Physician Orders Chest Portable (05/28/25 20:47) Venous Blood Gas (05/28/25 20:49) BIPAP (05/28/25 20:40) Vital Signs Date Time Temp Pulse Resp B/P (MAP) Pulse Ox O2 Delivery O2 Flow Rate FiO2 05/28/25 22:45 107 120/83 100 Facial BiPAP Mask 45 05/28/25 20:45 120 05/28/25 20:40 118 26 100 Bi-Pap+ 45 45 05/28/25 20:40 121 116/83 Facial BiPAP Mask 45 05/28/25 20:40 98.1 118 26 116/83 (94) 100 98.1 05/28/25 20:36 98 Bi-Pap+ 25 100 100 05/28/25 20:36 97.0 122 30 132/90 98 97.0 Laboratory Tests Test 05/28/25 20:02 White Blood Count 11.2 10^3/uL (4.4-10.8) H Medications Medications Dose Ordered Sig/Jessica Route Start Time Stop Time Status Last Admin Dose Admin Albuterol 20 mg STK-MED ONCE .ROUTE 05/28/25 20:44 05/28/25 20:41 DC 05/28/25 21:12 Ipratropium [place] 1 mg STK-MED ONCE .ROUTE 05/28/25 20:45 05/28/25 20:41 DC 05/28/25 21:13 Methylprednisolone Sodium Succinate 125 mg ONCE ONCE IV 05/28/25 21:00 05/28/25 21:01 DC 05/28/25 21:01 Sodium Chloride 1,000 ml @ 1,000 mls/hr Q1H ONCE IV 05/28/25 21:00 05/28/25 21:59 DC 05/28/25 21:25 Departure 1 Departure Time of Disposition: 23:24 Impression: Primary Impression: Acute asthma exacerbation Additional Impression: Acute respiratory failure with hypoxia Disposition: ADMITTED INPATIENT Admit to: Med Surg Condition: Guarded Discharged With: Self Comments 44-year-old female with a history of asthma and prior episodes of respiratory failure requiring intubation now had a episode of bronchospasm and asthma. She has improved after breathing treatments. I think we can wean her off of BiPAP/CPAP. However patient will need to be admitted for respiratory failure with hypoxia and asthma exacerbation. Critical Care Note Critical Care Time?: Yes (35 min-critical care time only) Critical care comment: Total critical care time: Approximately 36 minutes Due to a high probability of clinically significant, life threatening deterioration, the patient required my highest level of preparedness to intervene emergently and I personally spent this critical care time directly and personally managing the patient. This critical care time included obtaining a history; examining the patient; pulse oximetry; ordering and review of studies; arranging urgent treatment with development of a management plan; evaluation of patient's response to treatment; frequent reassessment; and, discussions with other providers. This critical care time was performed to assess and manage the high probability of imminent, life-threatening deterioration that could result in multi-organ failure. It was exclusive of separately billable procedures and treating other patients. Stability Stability form required: No Heart Score Heart Score: Heart Score Response (Comments) Value History N/A 0 EKG N/A 0 Age N/A 0 Risk Factors N/A 0 Troponin N/A 0 Total 0 VICTORINO EWING MD May 28, 2025 23:26
--- NOTE | 2025-05-28 23:34 | DVHHPRES ---
History of Present Illness Resident Creating Document: MAXIME GRIDER History of Present Illness Sammie Haas is a 44 year old female patient who presents to the ED with chief complaint of abrupt dyspnea in Functional Class IV which started the day of her admission. Patient reports similar symptoms to when she was admitted due to asthmatic crisis. Denies sick contacts, fever, chills in any other associated symptoms. Past medical history: Asthma/COPD with multiple admissions (more than five and this past year) patient was on Dupixent but was taken off due to not responding to treatment, Koki disease, vocal cord dysfunction, vitamin D deficiency, chronic pain secondary to sciatic nerve pain, anemia, GERD, probable anxiety disorder, osteoporosis, spina bifida Surgical history: Appendicectomy, cholecystectomy, C-sectionx3, tonsillectomy, right leg surgery due to osteoporosis (questionable brady placement) Family history: Mother had MIs x3, CVA and cervical cancer. Social history: Lives in [place] with family (next of kin is son Brayden). Denies current tobacco, alcohol and other drug abuse Allergies: Ibuprofen and levothyroxine Home medication: Buprenorphine patches q. weekly, cholecalciferol 2000 units weekly, cyclobenzaprine 5 mg p.o. twice daily, docusate p.o. daily, famotidine 40 mg p.o. daily, ferrous sulfate 325 mg p.o. daily, gabapentin 300 mg p.o. twice daily as needed, ipratropium nebulized 3 times daily, omeprazole 20 mg p.o. daily, oxycodone as needed, calcium Patient seen and examined at bedside. Currently on BiPAP. We will admit for further management Past Medical History Per HPI Past Surgical History Per HPI Family History Per HPI Past Social History Per HPI Review of Systems Review of Systems Per HPI Allergies: Coded Allergies: Ibuprofen (Verified Allergy, Unknown, 04/25/23) Levothyroxine (Verified Allergy, Unknown, 04/25/23) Exam Vital Signs Vital Signs Date Time Temp Pulse Resp B/P (MAP) Pulse Ox O2 Delivery O2 Flow Rate FiO2 05/28/25 22:45 107 120/83 100 Facial BiPAP Mask 45 05/28/25 20:40 26 05/28/25 20:40 98.1 98.1 05/28/25 20:36 25 Exam Patient lying in bed, in no acute distress General: Lucid, afebrile, mucosae are moist Cardiovascular: Normal S1 and S2. No murmurs, gallops or rubs Respiratory: Normal ventilation mechanics. Clear lung sounds on auscultation Abdomen: Soft, nontender, no organomegaly, normal bowel sounds MSK/skin: Mobilizes 4 limbs. Skin is dry and warm Neurological: Oriented in 3 spheres. No motor no sensitive deficits. Pupils are isocoric and reactive Labs/Xrays Labs Test 05/28/25 21:45 05/28/25 21:21 05/28/25 20:02 Range/Units Troponin I High Sensitivity < 3 L </=34 ng/L Blood Gas Specimen Type Venous Blood Gas Sample Site Other Blood Gas Patient Temperature 37.0 Arterial Blood Date Drawn [id number] [place] Test N/a Venous Blood pH 7.525 H 7.320-7.430 Venous Blood pCO2 at Patient Temp 26.7 L 38.0-54.0 mmHg Venous Blood pO2 at Patient Temp 40.5 23.0-48.0 mmHg Venous Blood HCO3 21.6 L 22.0-29.0 mmol/L Venous Bld O2 Saturation (Measured) 79.3 60.0-85.0 % Venous Blood Base Excess 0.2 -2.0-3.0 mmol/L Venous Blood Total Hemoglobin 14.1 12.0-16.0 g/dL Venous Blood Oxyhemoglobin 78.5 0.0-79.0 % Venous Blood Carboxyhemoglobin 0.7 0.5-1.5 % Venous Blood Methemoglobin 0.3 0.0-1.5 % Blood Gas Set Respiration Rate 12.0 Blood Gas Modality Mask - bipap Blood Gas Spontaneous Rate 26 FiO2 % 45.0 Blood Gas Spontaneous Tidal Volume 654 Blood Gas EPAP 5 Blood Gas IPAP 12 Bl Gas Inspiratory/Expiratory Ratio 1:3 White Blood Count 11.2 H 4.4-10.8 10^3/uL Red Blood Count 5.04 4.0-5.20 10^6/uL Hemoglobin 14.3 12.2-16.2 g/dL Hematocrit 42.0 36.0-46.0 % Mean Corpuscular Volume 83.3 80.0-100.0 fL Mean Corpuscular Hemoglobin 28.3 28.0-32.0 pg Mean Corpuscular Hemoglobin Concent 34.0 32.0-36.0 g/dL Red Cell Distribution Width 15.2 H 11.8-14.3 % Platelet Count 332 140-450 10^3/uL Mean Platelet Volume 8.0 6.9-10.8 fL Neutrophils (%) (Auto) 50.1 37.0-80.0 % Lymphocytes (%) (Auto) 42.9 10.0-50.0 % Monocytes (%) (Auto) 4.7 0.0-12.0 % Eosinophils (%) (Auto) 1.5 0.0-7.0 % Basophils (%) (Auto) 0.8 0.0-2.0 % Neutrophils # (Auto) 5.6 1.6-8.6 10 ^3/uL Lymphocytes # (Auto) 4.8 0.4-5.4 10 ^3/uL Monocytes # (Auto) 0.5 0-1.3 10 ^3/uL Eosinophils # (Auto) 0.2 0-0.8 10 ^3/uL Basophils # (Auto) 0.1 0-0.2 10 ^3/uL Nucleated Red Blood Cells 0.1 % Sodium Level 142 136-145 mmol/L Potassium Level 3.6 3.5-5.1 mmol/L Chloride Level 104 98-107 mmol/L Carbon Dioxide Level 23 20-31 mmol/L Anion Gap 15 5-15 Blood Urea Nitrogen 8 L 9-23 mg/dL Creatinine 0.84 0.550-1.02 mg/dL Glomerular Filtration Rate Calc 88 >90 mL/min BUN/Creatinine Ratio 9.5 L 10.0-20.0 Serum Glucose 116 H 74-106 mg/dL Calcium Level 9.9 8.7-10.4 mg/dL Magnesium Level 2.1 1.6-2.6 mg/dL Total Bilirubin 0.3 0.2-1.0 mg/dL Aspartate Amino Transferase (AST) 24 13-40 U/L Alanine Aminotransferase (ALT) 18 7-40 U/L Alkaline Phosphatase 113 46-116 U/L B-Type Natriuretic Peptide 1.43 0-100 pg/mL Total Protein 7.6 5.7-8.2 g/dL Albumin 4.9 H 3.2-4.8 g/dL SEPSIS Sepsis Screen Date sepsis recognized/suspect: May 28, 2025 Time Sepsis recognized/suspect: 2036 Recent Procedure: No On Antibiotic Therapy: No Respiratory Rate >20: Yes Heart Rate >90: Yes Temp<36 C (96.8 F) or >38.3 C: No SBP <90 or MAP <65 mmHG: No New Acute Mental Status Change: No Is the patient on CPAP, BIPAP,: Yes Physician Orders Chest Portable (05/28/25 20:47) Venous Blood Gas (05/28/25 20:49) BIPAP (05/28/25 20:40) Vital Signs Date Time Temp Pulse Resp B/P (MAP) Pulse Ox O2 Delivery O2 Flow Rate FiO2 05/28/25 22:45 107 120/83 100 Facial BiPAP Mask 45 05/28/25 20:45 120 05/28/25 20:40 118 26 100 Bi-Pap+ 45 45 05/28/25 20:40 121 116/83 Facial BiPAP Mask 45 05/28/25 20:40 98.1 118 26 116/83 (94) 100 98.1 05/28/25 20:36 98 Bi-Pap+ 25 100 100 05/28/25 20:36 97.0 122 30 132/90 98 97.0 Laboratory Tests Test 05/28/25 20:02 White Blood Count 11.2 10^3/uL (4.4-10.8) H Medications Medications Dose Ordered Sig/Jessica Route Start Time Stop Time Status Last Admin Dose Admin Albuterol 20 mg STK-MED ONCE .ROUTE 05/28/25 20:44 05/28/25 20:41 DC 05/28/25 21:12 20 MG Ipratropium [place] 1 mg STK-MED ONCE .ROUTE 05/28/25 20:45 05/28/25 20:41 DC 05/28/25 21:13 1 MG Methylprednisolone Sodium Succinate 125 mg ONCE ONCE IV 05/28/25 21:00 05/28/25 21:01 DC 05/28/25 21:01 125 MG Sodium Chloride 1,000 ml @ 1,000 mls/hr Q1H ONCE IV 05/28/25 21:00 05/28/25 21:59 DC 05/28/25 21:25 1,000 MLS/HR Assessment/Plan Assessment/Plan Acute respiratory failure Sepsis secondary to pneumonia Asthmatic crisis COPD exacerbation Community-acquired pneumonia Gram-positive/Gram-negative Currently on oxygen therapy with BiPAP (40% FiO2), titrating down Required IV steroids, magnesium and bronchodilator Patient has multiple admissions due to asthmatic crisis/COPD exacerbation. Consulted pulmonology for follow up (per patient she is not falling any optician manager in the [facility], only [place]) Consulted pulmonology specialist Ordered schneider cultures (blood, urine, sputum). Ordered MRSA swab. COVID and influenza negative Currently under empiric IV antibiotic (cefepime and vancomycin). Deescalate once MRSA swab is negative. Respiratory alkalosis with metabolic acidosis Hypophosphatemia Simple hyperglycemia Hyperlacticacidemia Monitor with CMP, lactic acid and ABG Ruled out acute coronary syndrome Rule out pulmonary embolism Troponin x3 negative, BNP negative, EKG with no ST-elevation Ordered echocardiogram (last echocardiogram on 02/2023 which showed LVEF 65%) Ordered D-dimer Vocal cord dysfunction Completing evaluation as outpatient Follows with Dr Sammie Bro ([place]). Koki's disease Followed by specialist in [place] TSH within normal limits Patient presented previous neck CT with nodule and isthmus of thyroid. Thyroid ultrasound: TI-RADS:2 (benign nodule) Osteoporosis status postop of right limb Spina bifida Chronic back pain secondary to sciatic nerve compression Continue calcium Patient required multiple courses of steroids. Patient will benefit from rheumatology evaluation as outpatient Optimize pain medication Dyslipidemia Monitor. ASCVD score is low, no need for atorvastatin Goals of care discussed with patient for over 18 minutes: Full CODE STATUS Discussed plan with Dr. Sanabria, patient and nurses: Patient admitted to [facility] due to requirement of BiPAP. We will try to titrate down oxygen requirement. On empiric IV antibiotic, bronchodilators and IV steroids. Patient has poor prognosis Plan discussed with: Patient, Other (Nurses) Date of Service: May 28, 2025 Billing Provider: EMILY FULTON MD Common Visit Codes: [id number] INP/OBS CARE ([facility]) Secondary Visit Codes: [id number] CARE PLAN 30 MINUTES MAXIME GRIDER RESIDENT May 28, 2025 23:34
[2025-05-28] MEDS ORDERED: ACETAMINOPHEN 325 MG TAB PO PRN (23:45)
[2025-05-28] MEDS ORDERED: ONDANSETRON HCL 4 MG/2 ML VIAL IV PRN (23:45)
[2025-05-29] VITALS (10 sets, daily range): BP systolic 110–128; BP diastolic 69–93; PULSE 72–112; RESP 14–18; TEMP 97; O2SAT 96–100
[2025-05-29 00:03] LABS: Magnesium 1.9 mg/dL (1.6-2.6)
[2025-05-29 00:04] LABS: Cholesterol 187.0 mg/dL (< 200)
[2025-05-29 00:06] LABS: HDL Cholesterol 37.0 mg/dL (40-59); Triglycerides 277.0 mg/dL (< 150)
[2025-05-29 00:09] LABS: INR 0.95 (0.9-1.15); Partial Thromboplastin Time 26.5 SEC (24.5-34.5); Prothrombin Time 10.1 sec (9.3-11.8)
[2025-05-29] MEDS: MAGNESIUM SULFATE 1GM/100ML 100 ML IV SCH ×2 (00:14→01:30)
[2025-05-29] MEDS ORDERED: VANCOMYCIN PER PHARMACY 0 MG IV SCH (00:45)
[2025-05-29 00:51] LABS: Base Excess -2.5 mmol/L (-2.0-3.0)
[2025-05-29 00:58] LABS: Lactic Acid w/Reflex 3.6 mmol/L (0.4-2.0)
[2025-05-29] MEDS: HYDROmorphone HCL 2 MG/ML VL/or syr IV ONE (01:50)
[2025-05-29] MEDS ORDERED: VANCOMYCIN 1.75GM/350ML IV ONE (02:00)
[2025-05-29] MEDS: CEFEPIME 1GM/50ML 50 ML IV ONE (03:14)
[2025-05-29 03:49] LABS: COVID19 ANTIGEN SOFIA FIA NEGATIVE (NEGATIVE)
[2025-05-29] MEDS: methylPREDNISolone SOD SUCC 40 MG/ML VL IV SCH (05:57)
[2025-05-29 06:01] LABS: Hematocrit 38.3 % (36.0-46.0); Hemoglobin 12.7 g/dL (12.2-16.2); Mean Corpuscular Hemoglobin 28.1 pg (28.0-32.0); Mean Corpuscular Volume 84.7 fL (80.0-100.0); Nucleated Red Blood Cells % 0.1 %
[2025-05-29 06:25] LABS: Alanine Aminotransferase 14 U/L (7-40); Albumin 4.5 g/dL (3.2-4.8); Alkaline Phosphatase 99 U/L (46-116); Anion Gap 17 (5-15); BUN/Creatinine Ratio 10.1 (10.0-20.0); Calcium 8.8 mg/dL (8.7-10.4); Chloride 105 mmol/L (98-107); Potassium 3.9 mmol/L (3.5-5.1); Sodium 141 mmol/L (136-145); Total Protein 7.0 g/dL (5.7-8.2)
[2025-05-29 06:31] LABS: Bilirubin, Total 0.2 mg/dL (0.2-1.0); Blood Urea Nitrogen 7 mg/dL (9-23); Carbon Dioxide 19 mmol/L (20-31); Glucose 163 mg/dL (74-106)
[2025-05-29] MEDS: IPRATROPIUM BROM 0.5 MG/2.5ML INH SOL NEB SCH (06:33)
[2025-05-29] MEDS: LEVALBUTEROL HCL 1.25 MG/3 ML NEB NEB SCH (06:33)
[2025-05-29] MEDS: SODIUM CHLORIDE 0.9% 1,000 ML IV ONE ×2 (07:12→09:00)
[2025-05-29] MEDS: VANCOMYCIN 1.75GM/350ML IV ONE (07:12)
[2025-05-29] MEDS: MORPHINE SULFATE INJ 2 MG/ml SYRG IV PRN (08:04)
[2025-05-29 08:41] LABS: Lactic Acid w/Reflex 3.5 mmol/L (0.4-2.0)
[2025-05-29] MEDS: CEFEPIME 1GM/50ML 50 ML IV SCH (09:45)
[2025-05-29] MEDS: POTASSIUM PHOSPHATE 22 MEQ in SODIUM CHL 0.9% 100 ML IV ONE (09:52)
[2025-05-29] MEDS: HYDROmorphone HCL 2 MG/ML VL/or syr IV PRN (10:02)
[2025-05-29] MEDS: ENOXAPARIN SOD 40 MG/0.4 ML SYRINGE SC SCH (10:10)
[2025-05-29] MEDS: SODIUM CHLORIDE 0.9% 1,000 ML IV SCH (11:00)
[2025-05-29] MEDS: LORazepam 2MG/ML-1ML VIAL ONE (14:43)
--- NOTE | 2025-05-29 14:45 | DVHPN2 ---
Subjective Patient states that her breathing has improved from yesterday Reviewed: Care Plan, H&P, Labs, Medications Changes from previous H/P or p: No Changes General: Per HPI, Chills Gastrointestinal: Nausea, Vomiting Objective Vitals Vital Signs Date Time Temp Pulse Resp B/P (MAP) Pulse Ox O2 Delivery O2 Flow Rate FiO2 05/29/25 14:11 113 18 163/96 05/29/25 10:55 98.9 99 98.9 05/29/25 10:52 Nasal Cannula* 2 28 Intake/Output Intake and Output 05/29/25 07:00 Intake Total 200 ml Balance 200 ml Intake IV Total 200 ml General Appearance: Alert, Oriented X3, Cooperative, No acute distress HEENT: Atraumatic, PERRLA Cardiovascular: Normal S1, Normal S2 Musculoskeletal: Normal sensory function, Normal motor function Skin: Dry, Intact Psych/Mental Status: Mental status NL, Mood NL Medications Current Medications Medications Dose Ordered Sig/Jessica Route Start Time Stop Time Status Last Admin Dose Admin Acetaminophen 325 mg Q4HP PRN PO 05/28/25 23:45 Ondansetron HCl 4 mg Q4HP PRN IV 05/28/25 23:45 Morphine Sulfate 2 mg Q4HPRN PRN IV 05/28/25 23:45 05/29/25 08:04 2 MG Enoxaparin Sodium 40 mg DAILY SC 05/29/25 10:00 05/29/25 10:10 40 MG Methylprednisolone Sodium Succinate 40 mg Q8HR IV 05/29/25 06:00 05/29/25 05:57 40 MG Cefepime HCl 50 ml @ 12.5 mls/hr Q8H IV 05/29/25 09:00 05/29/25 09:45 12.5 MLS/HR Vancomycin HCl 0 ml @ 0 mls/hr UD IV 05/29/25 00:45 Levalbuterol HCl 0.625 mg Q6HWA NEB 05/29/25 06:00 05/29/25 10:52 0.625 MG Ipratropium [place] 0.5 mg Q6HWA NEB 05/29/25 06:00 05/29/25 10:52 0.5 MG Sodium Chloride 1,000 ml @ 75 mls/hr [id number] IV 05/29/25 05:30 05/29/25 11:00 75 MLS/HR Hydromorphone HCl 0.25 mg Q4HP PRN IV 05/29/25 10:00 05/29/25 14:11 0.25 MG Vancomycin HCl 100 ml @ 100 mls/hr Q8H IV 05/29/25 15:00 Laboratory Results Laboratory Tests 05/29/25 04:41 Chemistry Test 05/28/25 20:52 05/28/25 21:45 05/29/25 04:41 Albumin 4.9 g/dL (3.2-4.8) H 4.5 g/dL (3.2-4.8) Calcium Level 9.9 mg/dL (8.7-10.4) 8.8 mg/dL (8.7-10.4) Magnesium Level 2.1 mg/dL (1.6-2.6) 1.9 mg/dL (1.6-2.6) Total Protein 7.6 g/dL (5.7-8.2) 7.0 g/dL (5.7-8.2) Phosphorus Level 1.1 mg/dL (2.4-5.1) L Coagulation Test 05/28/25 20:52 05/29/25 04:41 Prothrombin Time 10.1 sec (9.3-11.8) Prothrombin Time INR 0.95 (0.9-1.15) Activated Partial Thromboplast Time 26.5 SEC (24.5-34.5) D-Dimer, Quantitative 0.59 mg/L FEU (0.0-0.49) H Lipid panel Test 05/28/25 21:45 Cholesterol Level 187 mg/dL (< 200) HDL Cholesterol 37 mg/dL (40-59) L Triglycerides Level 277 mg/dL (< 150) H Cardiac Markers Test 05/28/25 20:52 B-Type Natriuretic Peptide 1.43 pg/mL (0-100) LFT Test 05/28/25 20:52 05/29/25 04:41 Alanine Aminotransferase (ALT) 18 U/L (7-40) 14 U/L (7-40) Alkaline Phosphatase 113 U/L (46-116) 99 U/L (46-116) Aspartate Amino Transferase (AST) 24 U/L (13-40) 14 U/L (13-40) Total Bilirubin 0.3 mg/dL (0.2-1.0) 0.2 mg/dL (0.2-1.0) HgA1c, TSH Test 05/28/25 20:52 Hemoglobin A1c 5.2 % A1C (<5.7) Thyroid Stimulating Hormone (TSH) 3.59 uIU/mL (0.55-4.78) Blood Gas Results Test 05/28/25 21:21 05/29/25 00:41 FiO2 % 45.0 35.0 Arterial Blood pH 7.583 (7.350-7.450) Labs and/or images reviewed: Labs reviewed by me, Image(s) reviewed by me Assessment/Plan Assessment/Plan Impression: -Acute hypoxic respiratory failure -acute asthma exacerbation -obesity -chronic pain syndrome -vocal cord dysplasia Plan: -patient has no inspiratory or expiratory wheezing. Patient assessed by myself on room air with saturation noted to be 96%. Ambulated patient with noted respiratory difficulty after proximally 15 ft. Patient did not have any desaturation noted. Wheezing noted more so in her upper airway, vocal cord area. -continue IV steroids -IV hydration -restart pain management with Percocet 10/325 q.6 hours as needed. Continue Dilaudid for breakthrough pain -lorazepam PRN anxiety -continue bronchodilators with Xopenex and ipratropium Total time spent with patient discussing and formulating plan of care: 35 minutes. This medical document was created using an electronic medical record system with [employer] dictation system. Although this document has been carefully reviewed, there may still be some phonetic and typographical errors. These areas are purely typographical due to imperfections of the software programs, and do not reflect any compromise in the patient's medical care. Plan discussed with: Patient, Other (RN) My Orders Orders - TINO SCHULTE NP Procedure Category Date Status Time Oxycodone W/ Acet PHA 05/29/25 Logged 5/325mg Tab (Percocet 14:30 Budesonide PHA 05/29/25 Logged (Inhalation) 22:00 Date of Service: May 29, 2025 Billing Provider: TINO SCHULTE NP Common Visit Codes: [id number] INP/OBS CARE(HIGH) TINO SCHULTE NP May 29, 2025 14:45
[2025-05-29] MEDS: VANCOMYCIN 750MG KIT 100 ML IV SCH (16:24)
[2025-05-29] MEDS: LORATADINE 10 MG TAB PO SCH (16:24)
[2025-05-29] MEDS: BUDESONIDE (INHALATION) 0.5 MG/2 ML NEB NEB SCH (18:42)
[2025-05-30] VITALS (12 sets, daily range): BP systolic 113–138; BP diastolic 73–91; PULSE 73–112; RESP 14–18; TEMP 97.6–98; O2SAT 95–100
[2025-05-30] MEDS: VANCOMYCIN 750MG KIT 100 ML IV SCH (00:14)
[2025-05-30] MEDS: OXYCODONE W/ ACETAMINOPHEN 5/325MG TABLET PO PRN (06:54)
--- NOTE | 2025-05-30 09:19 | ECG ---
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
--- NOTE | 2025-05-30 10:46 | DVHDS2 ---
Discharge Summary Date of Admission May 28, 2025 at 23:31 Date of Discharge: May 30, 2025 Admitting Diagnosis Acute hypoxic respiratory failure Labs/Diagnostic Data: Laboratory Results Test 05/30/25 05:59 05/29/25 07:29 05/29/25 04:41 05/29/25 02:50 Vancomycin Level Trough 14.4 ug/mL (5-10) Lactic Acid Level 3.5 mmol/L (0.4-2.0) White Blood Count 9.5 10^3/uL (4.4-10.8) Red Blood Count 4.52 10^6/uL (4.0-5.20) Hemoglobin 12.7 g/dL (12.2-16.2) Hematocrit 38.3 % (36.0-46.0) Mean Corpuscular Volume 84.7 fL (80.0-100.0) Mean Corpuscular Hemoglobin 28.1 pg (28.0-32.0) Mean Corpuscular Hemoglobin Concent 33.1 g/dL (32.0-36.0) Red Cell Distribution Width 15.3 % (11.8-14.3) Platelet Count 293 10^3/uL (140-450) Mean Platelet Volume 8.0 fL (6.9-10.8) Neutrophils (%) (Auto) 91.6 % (37.0-80.0) Lymphocytes (%) (Auto) 7.4 % (10.0-50.0) Monocytes (%) (Auto) 0.9 % (0.0-12.0) Eosinophils (%) (Auto) 0.0 % (0.0-7.0) Basophils (%) (Auto) 0.1 % (0.0-2.0) Neutrophils # (Auto) 8.7 10 ^3/uL (1.6-8.6) Lymphocytes # (Auto) 0.7 10 ^3/uL (0.4-5.4) Monocytes # (Auto) 0.1 10 ^3/uL (0-1.3) Eosinophils # (Auto) 0 10 ^3/uL (0-0.8) Basophils # (Auto) 0 10 ^3/uL (0-0.2) Nucleated Red Blood Cells 0.1 % D-Dimer, Quantitative 0.59 mg/L FEU (0.0-0.49) Total Bilirubin 0.2 mg/dL (0.2-1.0) Aspartate Amino Transferase (AST) 14 U/L (13-40) Alanine Aminotransferase (ALT) 14 U/L (7-40) Alkaline Phosphatase 99 U/L (46-116) Total Protein 7.0 g/dL (5.7-8.2) Albumin 4.5 g/dL (3.2-4.8) Influenza Type A Antigen Negative (Negative) Influenza Type B Antigen Negative (Negative) SARS-CoV-2 Antigen (Rapid) Negative (NEGATIVE) Test 05/29/25 00:41 05/28/25 21:45 05/28/25 21:21 05/28/25 20:52 Blood Gas Specimen Type Arterial Blood Gas Sample Site Right radial Blood Gas Patient Temperature 37.0 Arterial Blood Date Drawn [id number] Arterial Blood pH 7.583 (7.350-7.450) Arterial Blood Partial Pressure CO2 18.1 mmHg (32.0-45.0) Arterial Blood Partial Pressure O2 178.4 mmHg (83.0-108.0) Arterial Blood HCO3 16.7 mmol/L (21.0-28.0) Arterial Blood Oxygen Saturation 99.3 % (94.0-98.0) Arterial Blood Base Excess -2.5 mmol/L (-2.0-3.0) Arterial Blood Oxyhemoglobin 98.5 % (94.0-98.0) Arterial Blood Carboxyhemoglobin 0.3 % (0.5-1.5) Arterial Blood Methemoglobin 0.5 % (0.0-1.5) Giacomo Test Modified Blood Gas Total Hemoglobin 13.60 g/dL (12.0-16.0) Blood Gas Set Respiration Rate 12.0 Blood Gas Modality Mask - bipap Blood Gas Spontaneous Rate 24 FiO2 % 35.0 Blood Gas Spontaneous Tidal Volume 662 Blood Gas EPAP 5 Blood Gas IPAP 12 Bl Gas Inspiratory/Expiratory Ratio 1:2 Blood Gas Critical Value Read Back Yes Blood Gas Notified Whom gilbert Pugh Blood Gas Notified Time [id number] Blood Gas Notified By Rtjosesito Phosphorus Level 1.1 mg/dL (2.4-5.1) Magnesium Level 1.9 mg/dL (1.6-2.6) Troponin I High Sensitivity < 3 ng/L (</=34) Triglycerides Level 277 mg/dL (< 150) Cholesterol Level 187 mg/dL (< 200) LDL Cholesterol 125 mg/dL (< 100) HDL Cholesterol 37 mg/dL (40-59) Venous Blood pH 7.525 (7.320-7.430) Venous Blood pCO2 at Patient Temp 26.7 mmHg (38.0-54.0) Venous Blood pO2 at Patient Temp 40.5 mmHg (23.0-48.0) Venous Blood HCO3 21.6 mmol/L (22.0-29.0) Venous Bld O2 Saturation (Measured) 79.3 % (60.0-85.0) Venous Blood Base Excess 0.2 mmol/L (-2.0-3.0) Venous Blood Total Hemoglobin 14.1 g/dL (12.0-16.0) Venous Blood Oxyhemoglobin 78.5 % (0.0-79.0) Venous Blood Carboxyhemoglobin 0.7 % (0.5-1.5) Venous Blood Methemoglobin 0.3 % (0.0-1.5) Prothrombin Time 10.1 sec (9.3-11.8) Prothrombin Time INR 0.95 (0.9-1.15) Activated Partial Thromboplast Time 26.5 SEC (24.5-34.5) Hemoglobin A1c 5.2 % A1C (<5.7) B-Type Natriuretic Peptide 1.43 pg/mL (0-100) Vitamin B12 Level 380 pg/mL (211-911) Vitamin D 25-Hydroxy 57.9 ng/mL (30.0-100) Thyroid Stimulating Hormone (TSH) 3.59 uIU/mL (0.55-4.78) Other Laboratory Tests 05/29/25 04:41 Brief Hx & Hospital Course: History of Present Illness Sammie Haas is a 44 year old female patient who presents to the ED with chief complaint of abrupt dyspnea in Functional Class IV which started the day of her admission. Patient reports similar symptoms to when she was admitted due to asthmatic crisis. Denies sick contacts, fever, chills in any other associated symptoms. Course of hospitalization: Patient was started on empiric antibiotic therapy. O2 supplementation was eventually weaned off. Patient's wheezing has resolved with bronchodilators and IV steroids. Patient has been ambulating without any noted dyspnea. Pain management was achieved with oral narcotics. Patient will be seen by Dr. Meng, stores assistant prior to being discharged home today. She will be continued on steroids, prednisone 20 mg p.o. daily x7 days as well as being continued on antibiotic therapy with azithromycin unit Dosepak x1. She will continue all previous home medications and follow up with her PCP in 1-2 weeks. Physical examination General: Alert and Oriented x3. No acute distress. Well-nourished. Obese Eyes: EOMI. Anicteric. HENT: Moist mucous membranes. Lungs: Clear to auscultation bilaterally. No accessory muscle use. Cardiovascular: Regular rate and rhythm. No murmur. No JVD. Abdomen: Soft, non-tender and non-distended. No palpable masses. Extremities: No edema. Non-tender. Skin: No rashes or lesions. Warm. Neurologic: No focal neurological deficits. CN II-XII grossly intact, but not individually tested. Psychiatric: Cooperative. Appropriate mood and affect. Total time spent with patient discussing and formulating plan of care: 35 minutes. This medical document was created using an electronic medical record system with [employer] dictation system. Although this document has been carefully reviewed, there may still be some phonetic and typographical errors. These areas are purely typographical due to imperfections of the software programs, and do not reflect any compromise in the patient's medical care. Consults/Reason for consult Pulmonology: Acute respiratory failure Condition at Discharge: Guarded Final Diagnosis/Problems List Acute hypoxic respiratory failure -Acute hypoxic respiratory failure -acute asthma exacerbation -obesity -chronic pain syndrome -vocal cord dysfunction -dyslipidemia Discharge Disposition: Home Discharge Instruct/Medications Diet: Cardiac 2g Na,low cholest Activity: No Restrictions, As Tolerated Follow Up/Referral: Follow up with PCP in 1-2 weeks Medications: Prednisone 20 mg p.o. daily x7 days Azithromycin unit Dosepak Scheduled Azithromycin (Zithromax Tablet), 250 MG PO DAILY Cholecalciferol (Vitamin D3), 5,000 UNIT OR QWEEKLY, (Reported) Cyclobenzaprine Hcl (Cyclobenzaprine Hcl), 5 MG PO BID, (Reported) Docusate Sodium (Colace), 100 MG PO DAILY, (Reported) Ferrous Sulfate (Ferosul), 325 PO DAILY, (Reported) Methylprednisolone (Medrol Dosepak), 4 MG PO UD Montelukast Sodium (Montelukast Sodium), 1 TAB PO DAILY, (Reported) Scheduled PRN Albuterol Sulfate (Ventolin), 2.5 MG NEB Q4HPRN PRN Gabapentin (Gabapentin), 300 MG PO BID PRN for NEUROPATHRY LEG PAIN, (Reported) Oxycodone W/ Acetaminophen (Apap/Oxycodone), 1 TAB PO QID PRN for BACK PAIN,, (Reported) 36 Discharge Statement: "Patient was advised to return to the ER or call 911 if any headaches, dizziness, shortness of breath, chest pain, abdominal pain, bleeding, fevers, or worsening of medical condition. Patient was counseled about treatment plan, medications, possible side effects, patientverbalized understanding. All questions were answered to the best of my ability. This discharge took greater then 30 minutes in planning, reviewing documentation, counseling the patient, and discussing with other team members." ASSESSMENT ASSESSMENT Assessment Acute hypoxic respiratory failure Date of Service: May 30, 2025 Billing Provider: TINO SCHULTE NP Common Visit Codes: [id number]/OBS DISCH DAY >30min TINO SCHULTE NP May 30, 2025 10:46
--- NOTE | 2025-05-30 11:12 | DVHSR ---
APPROVED REPORT EXAM: LIMITED Two-dimensional and M-mode echocardiogram with Doppler and color Doppler. Blood Pressure: 133/81 mmHg INDICATION SOB RISK FACTORS Height: 5' 6", Weight: 180 DIMENSIONS LVDd4.3 (3.8-5.7cm)LA (2D)2.8 (1.9-4.0cm)Aortic Root3.7 (2.0-3.7cm) LVDs2.6 (2.5-4.0cm)LA (MM) (1.9-4.0cm)Aortic Cusp Exc2.0 (1.5-2.0cm) EF (%) 70.0 (55-70%)Rt. Atrium3.3 (1.9-4.0cm)Asc. Aorta3.0 cm IVSd0.8 (0.7-1.1cm)RV (D) (1.8-2.4cm) PWd0.9 (0.7-1.1cm) Mitral Valve MitralMitral Stenosis E wave0.90m/sMV Mean GR.mmHg A wave1.10m/sMV Peak GR.mmHg E/A ratio0.82D MVAcm2 Aortic Valve Aortic ValveAortic Stenosis V10.90m/Jose Mean GR.3mmHg V21.10m/Jose Peak GR.6mmHg LVOT Diameter2.1 (1.8-2.4cm)Doppler AVA2.83cm2 Pulmonic Valve V20.90m/s Other Information Quality : Technically LimitedRhythm : Technically limited study due to body habitus and patient position, patient can not turn or move due to pain. Conclusion Technically difficult study. Difficult acoustic windows. Sinus rhythm. Mild aortic root enlargement and concentric LVH. Valves are normal. EF of 55-60% with normal RV function. Mild TR. No pericardial effusion masses or vegetations.
[2025-05-30 11:26] LABS: Chloride 109 mmol/L (98-107); Potassium 4.1 mmol/L (3.5-5.1); Sodium 142 mmol/L (136-145)
[2025-05-30 11:27] LABS: Anion Gap 11 (5-15); Carbon Dioxide 22 mmol/L (20-31)
[2025-05-30 11:29] LABS: Calcium 8.6 mg/dL (8.7-10.4)
[2025-05-30 11:32] LABS: BUN/Creatinine Ratio 13.6 (10.0-20.0)
[2025-05-30 11:34] LABS: Blood Urea Nitrogen 8 mg/dL (9-23); Glucose 137 mg/dL (74-106)
--- NOTE | 2025-05-30 16:26 | DVHINCON2 ---
Date of service: May 29, 2025 Referring Physician ROSA M Galvan Reason for Consultation Asthma exacerbation, Eosinophilic asthma History of Present Illness 44-year-old woman history of asthma/COPD, vocal cord dysfunction with multiple admissions for asthma exacerbation. She has received IV steroids with interval improvement in her symptoms. She is on supplemental oxygen. Pulmonary consultation is called due to acute exacerbation of eosinophilic asthma. Review of systems: 14 point review of systems is negative unless otherwise noted above. Past medical history: Eosinophilic asthma, vocal cord dysfunction, Koki's disease, vitamin-D deficiency, chronic pain secondary to sciatic nerve pain, anemia, GERD, anxiety disorder, osteoporosis, spina bifida Past surgical history: Appendectomy, cholecystectomy, x3, tonsillectomy, right leg surgery due to osteoporosis Medications: Reviewed Allergies: Ibuprofen, levothyroxine Family history: Mother had multiple myocardial infarctions x3, cerebrovascular accident, cervical cancer Social history: [place] in [place] family. No alcohol or illicit drug use. Nonsmoker. Family History: Cardiovascular disease G8 MOTHER Cerebrovascular accident (CVA) G8 MOTHER G8 FATHER Diabetes mellitus G8 MOTHER G8 FATHER G8 MOTHER Diabetes mellitus G8 MOTHER G8 FATHER G8 MOTHER FH: CHF (congestive heart failure) G8 MOTHER FH: bipolar disorder G8 MOTHER FH: cancer G8 MOTHER G8 FATHER FH: myocardial infarction G8 MOTHER FH: throat cancer G8 FATHER FHx: stroke G8 MOTHER G8 FATHER Hypertension G8 FATHER Allergies: Coded Allergies: Ibuprofen (Verified Allergy, Unknown, 04/25/23) Levothyroxine (Verified Allergy, Unknown, 04/25/23) Home Meds Active Scripts Azithromycin (ZITHROMAX TABLET) 250 Mg Tb, 250 MG PO DAILY, #6 TAB take 2 tabs the first day, then 1 tab daily until finish Prov:HEATHER CLARK MD 04/23/25 Methylprednisolone (Medrol Dosepak) 4 Mg Lonnie, 4 MG PO UD, #21 TAB UAD Prov:HEATHER CLARK MD 04/23/25 Albuterol Sulfate (Ventolin) 2.5 Mg/0.5 Ml Nb, 2.5 MG NEB Q4HPRN PRN for 30 Days, #30 INH Prov:MAXIME GRIDER 01/11/24 Reported Medications Montelukast Sodium (MONTELUKAST SODIUM) 10 Mg Tab, 1 TAB PO DAILY 12/19/24 Docusate Sodium (Colace) 100 Mg Cap, 100 MG PO DAILY for CONSTIPATION, CAP 01/08/24 Cholecalciferol (VITAMIN D3) 2,000 Unit Tab, 5000 UNIT OR QWEEKLY for LOW VITAMIN D, TAB 01/08/24 Cyclobenzaprine Hcl (Cyclobenzaprine Hcl) 10 Mg Tab, 5 MG PO BID for MUSCLE RELAXANT for 30 Days, MG 11/30/23 Oxycodone W/ Acetaminophen (Apap/Oxycodone) 1 Tab Tab, 1 TAB PO QID PRN for BACK PAIN,, #90 TAB 10/325 08/27/23 Ferrous Sulfate (Ferosul) 325 Mg Tab, 325 PO DAILY for ANEMIA 03/03/23 Gabapentin (Gabapentin) 300 Mg Cap, 300 MG PO BID PRN for NEUROPATHRY LEG PAIN 03/02/23 Current Medications Current Medications Medications (Trade) Dose Ordered Sig/Jessica Route PRN Reason Start Time Stop Time Status Last Admin Budesonide (Pulmicort) 0.5 mg BID NEB 05/29/25 22:00 05/30/25 13:09 DC 05/30/25 06:56 Vancomycin HCl 100 ml @ 100 mls/hr Q8H IV 05/30/25 00:00 05/30/25 13:09 DC 05/30/25 08:43 Vital Signs Vital Signs Date Time Temp Pulse Resp B/P (MAP) Pulse Ox O2 Delivery O2 Flow Rate FiO2 05/30/25 12:54 98.0 100 18 126/87 (100) 100 98.0 05/30/25 12:03 Room Air* 0 21 Physical Exam Gen.: Patient lying in bed in no apparent distress. On supplemental oxygen. Head: Normocephalic, atraumatic Eyes: EOMI/PERRLA. Ears: Normal hearing. Normal anatomy. Neck/trachea: Trachea midline, supple. Nose: Normal external anatomy. Mouth: Moist mucous membranes. Chest: Decreased air entry bilaterally. No wheezing or rhonchi. Cardio vascular: Positive S1, positive S2. Regular rate and rhythm. Abdomen: Positive bowel sounds in all 4 quadrants. Soft, non-tender, non- distended. : Deferred. Rectal: Deferred Skin: Warm, dry. Extremities: 2+ radial pulses bilaterally. No lower extremity edema. Neuro: Awake, alert, oriented x3. No gross motor or sensory deficits. Cranial nerves II through XII intact. Gait not assessed. Labs/Diagnostic Data Labs Test 05/30/25 05:59 05/29/25 07:29 05/29/25 04:41 05/29/25 02:50 Range/Units Sodium Level 142 136-145 mmol/L Potassium Level 4.1 3.5-5.1 mmol/L Chloride Level 109 H 98-107 mmol/L Carbon Dioxide Level 22 20-31 mmol/L Anion Gap 11 5-15 Blood Urea Nitrogen 8 L 9-23 mg/dL Creatinine 0.59 0.550-1.02 mg/dL Glomerular Filtration Rate Calc 115 >90 mL/min BUN/Creatinine Ratio 13.6 10.0-20.0 Serum Glucose 137 H 74-106 mg/dL Calcium Level 8.6 L 8.7-10.4 mg/dL Vancomycin Level Trough 14.4 H 5-10 ug/mL Lactic Acid Level 3.5 *H 0.4-2.0 mmol/L White Blood Count 9.5 4.4-10.8 10^3/uL Red Blood Count 4.52 4.0-5.20 10^6/uL Hemoglobin 12.7 12.2-16.2 g/dL Hematocrit 38.3 36.0-46.0 % Mean Corpuscular Volume 84.7 80.0-100.0 fL Mean Corpuscular Hemoglobin 28.1 28.0-32.0 pg Mean Corpuscular Hemoglobin Concent 33.1 32.0-36.0 g/dL Red Cell Distribution Width 15.3 H 11.8-14.3 % Platelet Count 293 140-450 10^3/uL Mean Platelet Volume 8.0 6.9-10.8 fL Neutrophils (%) (Auto) 91.6 H 37.0-80.0 % Lymphocytes (%) (Auto) 7.4 L 10.0-50.0 % Monocytes (%) (Auto) 0.9 0.0-12.0 % Eosinophils (%) (Auto) 0.0 0.0-7.0 % Basophils (%) (Auto) 0.1 0.0-2.0 % Neutrophils # (Auto) 8.7 H 1.6-8.6 10 ^3/uL Lymphocytes # (Auto) 0.7 0.4-5.4 10 ^3/uL Monocytes # (Auto) 0.1 0-1.3 10 ^3/uL Eosinophils # (Auto) 0 0-0.8 10 ^3/uL Basophils # (Auto) 0 0-0.2 10 ^3/uL Nucleated Red Blood Cells 0.1 % D-Dimer, Quantitative 0.59 H 0.0-0.49 mg/L FEU Total Bilirubin 0.2 0.2-1.0 mg/dL Aspartate Amino Transferase (AST) 14 13-40 U/L Alanine Aminotransferase (ALT) 14 7-40 U/L Alkaline Phosphatase 99 46-116 U/L Total Protein 7.0 5.7-8.2 g/dL Albumin 4.5 3.2-4.8 g/dL Influenza Type A Antigen Negative Negative Influenza Type B Antigen Negative Negative SARS-CoV-2 Antigen (Rapid) Negative NEGATIVE Test 05/29/25 00:41 05/28/25 21:45 05/28/25 21:21 05/28/25 20:52 Range/Units Blood Gas Specimen Type Arterial Blood Gas Sample Site Right radial Blood Gas Patient Temperature 37.0 Arterial Blood Date Drawn [id number] Arterial Blood pH 7.583 *H 7.350-7.450 Arterial Blood Partial Pressure CO2 18.1 *L 32.0-45.0 mmHg Arterial Blood Partial Pressure O2 178.4 H 83.0-108.0 mmHg Arterial Blood HCO3 16.7 L 21.0-28.0 mmol/L Arterial Blood Oxygen Saturation 99.3 H 94.0-98.0 % Arterial Blood Base Excess -2.5 L -2.0-3.0 mmol/L Arterial Blood Oxyhemoglobin 98.5 H 94.0-98.0 % Arterial Blood Carboxyhemoglobin 0.3 L 0.5-1.5 % Arterial Blood Methemoglobin 0.5 0.0-1.5 % Giacomo Test Modified Blood Gas Total Hemoglobin 13.60 12.0-16.0 g/dL Blood Gas Set Respiration Rate 12.0 Blood Gas Modality Mask - bipap Blood Gas Spontaneous Rate 24 FiO2 % 35.0 Blood Gas Spontaneous Tidal Volume 662 Blood Gas EPAP 5 Blood Gas IPAP 12 Bl Gas Inspiratory/Expiratory Ratio 1:2 Blood Gas Critical Value Read Back Yes Blood Gas Notified Whom gilbert Pugh Blood Gas Notified Time [id number] Blood Gas Notified By Rt, josesito cano Phosphorus Level 1.1 L 2.4-5.1 mg/dL Magnesium Level 1.9 1.6-2.6 mg/dL Troponin I High Sensitivity < 3 L </=34 ng/L Triglycerides Level 277 H < 150 mg/dL Cholesterol Level 187 < 200 mg/dL LDL Cholesterol 125 H < 100 mg/dL HDL Cholesterol 37 L 40-59 mg/dL Venous Blood pH 7.525 H 7.320-7.430 Venous Blood pCO2 at Patient Temp 26.7 L 38.0-54.0 mmHg Venous Blood pO2 at Patient Temp 40.5 23.0-48.0 mmHg Venous Blood HCO3 21.6 L 22.0-29.0 mmol/L Venous Bld O2 Saturation (Measured) 79.3 60.0-85.0 % Venous Blood Base Excess 0.2 -2.0-3.0 mmol/L Venous Blood Total Hemoglobin 14.1 12.0-16.0 g/dL Venous Blood Oxyhemoglobin 78.5 0.0-79.0 % Venous Blood Carboxyhemoglobin 0.7 0.5-1.5 % Venous Blood Methemoglobin 0.3 0.0-1.5 % Prothrombin Time 10.1 9.3-11.8 sec Prothrombin Time INR 0.95 0.9-1.15 Activated Partial Thromboplast Time 26.5 24.5-34.5 SEC Hemoglobin A1c 5.2 <5.7 % A1C B-Type Natriuretic Peptide 1.43 0-100 pg/mL Vitamin B12 Level 380 211-911 pg/mL Vitamin D 25-Hydroxy 57.9 30.0-100 ng/mL Thyroid Stimulating Hormone (TSH) 3.59 0.55-4.78 uIU/mL Microbiology Date/Time Source Procedure Growth Status 05/29/25 01:30 Blood Blood Culture - Preliminary Resulted Assessment Impression: Acute hypoxic respiratory failure secondary to acute exacerbation of asthma Sepsis secondary to pneumonia Vocal cord dysfunction Obesity with a BMI of 31 Pneumonia due to Gram-negative rods versus Gram-positive cocci Plan: Supplemental oxygen keep O2 saturation above 92% Continue bronchodilators Continue steroids Respiratory viral panel was negative. Follow up with Dr. Sammie Bro at [facility]. Pain control Avoid over-sedation Diet and lifestyle modifications for weight reduction Obesity complicates all care DVT prophylaxis Prognosis: Poor given multiple comorbidities. Rest of plan per hospitalist and other consultants. Thank you Dr. Sanabria/Dr Grider for allowing me to participate in this patient's care. Further recommendations will depend on patient's clinical course. Please do not hesitate to contact me if you have any questions or concerns. This medical document was created using an electronic medical record system with [employer] dictation system. Although this document has been carefully reviewed, there may still be some phonetic and typographical errors. These areas are purely typographical due to imperfections of the software programs, and do not reflect any compromise in the patient's medical care. Plan discussed with: Patient, Other (RN) Visit Coding Pulmonary Billing Provider: TEN RIOS MD Date of Service if different f: May 29, 2025 Common Visit Codes: [id number] INP/OBS CARE (HIGH) TEN RIOS MD May 30, 2025 16:26
--- NOTE | 2025-05-30 16:28 | DVHPN2 ---
Subjective Patient seen and examined at bedside. Feeling better. Tapered off supplemental oxygen. No overnight events. Reviewed: Care Plan, H&P, Labs, Medications Changes from previous H/P or p: No Changes General: Per HPI, Chills Gastrointestinal: Nausea, Vomiting Objective Vitals Vital Signs Date Time Temp Pulse Resp B/P (MAP) Pulse Ox O2 Delivery O2 Flow Rate FiO2 05/30/25 12:54 98.0 100 18 126/87 (100) 100 98.0 05/30/25 12:03 Room Air* 0 21 Intake/Output Intake and Output 05/30/25 07:00 Intake Total 775 ml Balance 775 ml Intake Oral 575 ml IV Total 200 ml # Voids 2 Exam Gen.: Patient lying in bed in no apparent distress. She is breathing comfortably on room air. Head: Normocephalic, atraumatic Eyes: EOMI/PERRLA. Ears: Normal hearing. Normal anatomy. Neck/trachea: Trachea midline, supple. Nose: Normal external anatomy. Mouth: Moist mucous membranes. Chest: Decreased air entry bilaterally. No wheezing or rhonchi. Cardio vascular: Positive S1, positive S2. Regular rate and rhythm. Abdomen: Positive bowel sounds in all 4 quadrants. Soft, non-tender, non- distended. : Deferred. Rectal: Deferred Skin: Warm, dry. Extremities: 2+ radial pulses bilaterally. No lower extremity edema. Neuro: Awake, alert, oriented x3. No gross motor or sensory deficits. Cranial nerves II through XII intact. Gait not assessed. General Appearance: Alert, Oriented X3, Cooperative, No acute distress HEENT: Atraumatic, PERRLA Cardiovascular: Normal S1, Normal S2 Musculoskeletal: Normal sensory function, Normal motor function Skin: Dry, Intact Psych/Mental Status: Mental status NL, Mood NL Laboratory Results Laboratory Tests 05/29/25 04:41 05/30/25 05:59 Chemistry Test 05/30/25 05:59 Calcium Level 8.6 mg/dL (8.7-10.4) L Microbiology Microbiology Date/Time Source Procedure Growth Status 05/29/25 01:30 Blood Blood Culture - Preliminary Resulted Assessment/Plan Assessment/Plan Impression: Acute hypoxic respiratory failure secondary to acute exacerbation of asthma Sepsis secondary to pneumonia Vocal cord dysfunction Obesity with a BMI of 31 Pneumonia due to Gram-negative rods versus Gram-positive cocci Events: Patient tapered off supplemental oxygen Breathing comfortably on room air. Wheezing has resolved. Decreased air entry bilaterally. Complete steroid course. Continue bronchodilators. Outpatient follow up with [facility] for completion of workup for vocal cord dysfunction. Follow up in Pulmonary Clinic within 2-3 weeks. Patient is stable from the pulmonary standpoint for discharge. Rest of plan as outlined below Plan: Continue bronchodilators Continue steroids Respiratory viral panel was negative. Follow up with Dr. Sammie Bro at [facility]. Pain control Avoid over-sedation Diet and lifestyle modifications for weight reduction Obesity complicates all care DVT prophylaxis Prognosis: Poor given multiple comorbidities. Rest of plan per hospitalist and other consultants. Thank you Dr. Sanabria/Dr Rowe for allowing me to participate in this patient's care. Further recommendations will depend on patient's clinical course. Please do not hesitate to contact me if you have any questions or concerns. This medical document was created using an electronic medical record system with [employer] dictation system. Although this document has been carefully reviewed, there may still be some phonetic and typographical errors. These areas are purely typographical due to imperfections of the software programs, and do not reflect any compromise in the patient's medical care. Plan discussed with: Patient, Other (RN BINH, VAN LOADER) Visit Coding Pulmonary Billing Provider: TEN RIOS MD Date of Service if different f: May 30, 2025 Common Visit Codes: [id number] INP/OBS CARE(HIGH) TEN RIOS MD May 30, 2025 16:28
[2025-05-31] MEDS ORDERED: PRED20TA2 PO (12:30)
[2025-05-31] MEDS ORDERED: AZITTAB PO (12:30)
== END 2025-05-30 12:56 | disposition home or self-care (01) | DRG 133 ==
LOC: EDBD 20:35 → ER 20:37 → OVERFLOW 23:31 → TELE-EAST 05-29 17:38
PROVIDERS: ADMIT Nurse Practitioner Acute Care; ATTEND Nurse Practitioner Acute Care
PROC: 5A09357 Assistance with Respiratory Ventilation, Less than 24 Consecutive Hours, Continuous Positive Airway Pressure (ICD-10-PCS; principal; 2025-05-28)
PROC: 05HA33Z Insertion of Infusion Device into Left Brachial Vein, Percutaneous Approach (ICD-10-PCS; 2025-05-29)
PROC: B54NZZA Ultrasonography of Left Upper Extremity Veins, Guidance (ICD-10-PCS; 2025-05-29)
DX: J96.01 Acute respiratory failure with hypoxia (principal); A41.59 Other Gram-negative sepsis; J15.69 Pneumonia due to other Gram-negative bacteria; E87.20 Acidosis, unspecified; E87.3 Alkalosis; J15.9 Unspecified bacterial pneumonia; J82.83 Eosinophilic asthma; E83.39 Other disorders of phosphorus metabolism; J45.901 Unspecified asthma with (acute) exacerbation; Z20.822 Contact with and (suspected) exposure to COVID-19; J44.1 Chronic obstructive pulmonary disease with (acute) exacerbation; E06.3 Autoimmune thyroiditis; E78.5 Hyperlipidemia, unspecified; M81.0 Age-related osteoporosis without current pathological fracture; R73.9 Hyperglycemia, unspecified; J44.0 Chronic obstructive pulmonary disease with (acute) lower respiratory infection; G89.4 Chronic pain syndrome; E66.9 Obesity, unspecified; J38.3 Other diseases of vocal cords; K21.9 Gastro-esophageal reflux disease without esophagitis; F41.9 Anxiety disorder, unspecified; Z90.49 Acquired absence of other specified parts of digestive tract; Z98.891 History of uterine scar from previous surgery; Z80.8 Family history of malignant neoplasm of other organs or systems; Z80.49 Family history of malignant neoplasm of other genital organs; Z82.3 Family history of stroke; Z82.49 Family history of ischemic heart disease and other diseases of the circulatory system; Z83.3 Family history of diabetes mellitus; Z68.31 Body mass index [BMI] 31.0-31.9, adult
CPT/HCPCS: 36415; 36600; 71045; 80048; 80053; 80061; 80202; 82306; 82565; 82607; 82805; 83036; 83605; 83735; 83880; 84100; 84443; 84484; 85025; 85379; 85610; 85730; 87040; 87426; 87804; 93005; 93306; 94640; 94660; 96361; 96374; 99291; G0378

== ENCOUNTER 2025-06-05 21:54 | Inpatient (IN) | payer MEDICAID ==
[~2025-06-05] VITALS: Ht 170.2 cm; Wt 86.8 kg
[~2025-06-05 21:54] MED LIST changes: +AZITTAB PO; +PRED20TA2 PO
[2025-06-05] MEDS: IPRATROPIUM BROM 0.5 MG/2.5ML INH SOL NEB ONE (22:50)
[2025-06-05] MEDS: ALBUTEROL SULF 2.5 MG/0.5ML(0.5%) NEB SOLN NEB ONE (22:50)
[2025-06-05 23:01] LABS: Hematocrit 41.6 % (36.0-46.0); Hemoglobin 13.9 g/dL (12.2-16.2); Mean Corpuscular Hemoglobin 27.8 pg (28.0-32.0); Mean Corpuscular Volume 83.7 fL (80.0-100.0); Nucleated Red Blood Cells % 0.1 %
--- NOTE | 2025-06-05 23:06 | ED.PDOC ---
SOB-HPI HPI Comments 44 year old female presents to the ED via EMS with a chief complaint of shortness of breath onset today (06/05/25). Per EMS, patient began experiencing asthma exacerbation after he mom used a cleaning product, 911 was called. Patient was discharged from [facility] on 05/30/25 with diagnosis of Acute hypoxic respiratory failure. Patient has visited ED several times for respiratory distress. She was placed on c-pap in route to ED, given epi. Patient is a poor historian. Denies chest pain, headache, dizziness, fever, chills, nausea, vomiting, diarrhea, abdominal pain. No other symptoms or modifying factors present at this time. Time Seen by MD: 22:50 Primary Care Provider: UNKNOWN Reviewed notes: Medications, Allergies Information Source: Patient, Emergency Med Personnel Mode of Arrival: EMS Severity: Moderate Timing: Hours Duration: Since onset Context: At Rest PE Risk Factors: None History of: Asthma, COPD, Anxiety Prehospital treatment: C-Pap Modifying Factors: Nothing Vital Signs Vital Signs Date Time Temp Pulse Resp B/P (MAP) Pulse Ox O2 Delivery O2 Flow Rate FiO2 06/06/25 00:18 88 108/80 98 Facial BiPAP Mask 30 06/05/25 23:31 25 06/05/25 21:54 98.9 98.9 06/05/25 21:54 15 Physical Exam PHYSICAL EXAM: General: Awake, alert and oriented. In acute distress Skin: Skin in warm, dry and intact. Appropriate color for ethnicity. HEENT: The head is normocephalic and atraumatic. Conjunctivae are clear without exudates or hemorrhage. Sclera is non-icteric. EOM are intact. No signs of nystagmus. Eyelids are normal in appearance without swelling or lesions. Oral mucosa is pink and moist Neck: The neck is supple with normal range of motion. No JVD. Cardiac: Heart rate and rhythm are normal. No murmurs, gallops, or rubs are auscultated. Respiratory: Positive tachypnea and wheezing. Abdominal: Abdomen is soft, non-tender without distention, guarding or rigidity. Bowel sounds are present and normoactive in all four quadrants. Extremities: Upper and lower extremities are atraumatic in appearance without deformity or edema. Neurological: The patient is awake, alert There is no facial asymmetry. 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 Was a procedure done?: No Differential Dx Differential Diagnosis: Other (Differential diagnoses considered includebut arenot limited to acute Bronchitis, Asthma, COPD, Pneumothorax, PE, CHF, Pulmonary HTN, Anemia, CO Poisoning, Methemoglobinemia, Hyperventilation, Metabolic Acidosis, Pulmonary Edema, Pneumonia, ACS, Pericardial Tamponade, Anxiety, other) X-Ray, Labs, Meds, VS Vital Signs Date Time Temp Pulse Resp B/P (MAP) Pulse Ox O2 Delivery O2 Flow Rate FiO2 06/06/25 00:18 88 108/80 98 Facial BiPAP Mask 30 06/06/25 00:00 87 06/05/25 23:31 114 25 100 50 06/05/25 23:06 122 06/05/25 22:15 114 Facial BiPAP Mask 50 06/05/25 21:57 122 06/05/25 21:54 98.9 135 42 158/114 99 98.9 06/05/25 21:54 99 Non-Rebreather 15 N/A Lab Test 06/06/25 02:00 06/05/25 23:46 06/05/25 23:28 06/05/25 22:50 Range/Units Troponin I High Sensitivity < 3 L < 3 L < 3 L </=34 ng/L Blood Gas Specimen Type Arterial Blood Gas Sample Site Left radial Blood Gas Patient Temperature 37.0 Arterial Blood Date Drawn [id number] Arterial Blood pH 7.530 H 7.350-7.450 Arterial Blood Partial Pressure CO2 27.9 L 32.0-45.0 mmHg Arterial Blood Partial Pressure O2 65.0 L 83.0-108.0 mmHg Arterial Blood HCO3 22.8 21.0-28.0 mmol/L Arterial Blood Oxygen Saturation 94.3 94.0-98.0 % Arterial Blood Base Excess 1.3 -2.0-3.0 mmol/L Arterial Blood Oxyhemoglobin 93.6 L 94.0-98.0 % Arterial Blood Carboxyhemoglobin 0.2 L 0.5-1.5 % Arterial Blood Methemoglobin 0.5 0.0-1.5 % Giacomo Test Modified Blood Gas Total Hemoglobin 14.30 12.0-16.0 g/dL Blood Gas Modality Vent - ac FiO2 % 50.0 Blood Gas EPAP 5 Blood Gas IPAP 12 White Blood Count 13.9 H 4.4-10.8 10^3/uL Red Blood Count 4.98 4.0-5.20 10^6/uL Hemoglobin 13.9 12.2-16.2 g/dL Hematocrit 41.6 36.0-46.0 % Mean Corpuscular Volume 83.7 80.0-100.0 fL Mean Corpuscular Hemoglobin 27.8 L 28.0-32.0 pg Mean Corpuscular Hemoglobin Concent 33.3 32.0-36.0 g/dL Red Cell Distribution Width 16.0 H 11.8-14.3 % Platelet Count 332 140-450 10^3/uL Mean Platelet Volume 7.4 6.9-10.8 fL Neutrophils (%) (Auto) 72.2 37.0-80.0 % Lymphocytes (%) (Auto) 23.1 10.0-50.0 % Monocytes (%) (Auto) 4.3 0.0-12.0 % Eosinophils (%) (Auto) 0.0 0.0-7.0 % Basophils (%) (Auto) 0.4 0.0-2.0 % Neutrophils # (Auto) 10.0 H 1.6-8.6 10 ^3/uL Lymphocytes # (Auto) 3.2 0.4-5.4 10 ^3/uL Monocytes # (Auto) 0.6 0-1.3 10 ^3/uL Eosinophils # (Auto) 0 0-0.8 10 ^3/uL Basophils # (Auto) 0.1 0-0.2 10 ^3/uL Nucleated Red Blood Cells 0.1 % Sodium Level 140 136-145 mmol/L Potassium Level 4.0 3.5-5.1 mmol/L Chloride Level 106 98-107 mmol/L Carbon Dioxide Level 20 20-31 mmol/L Anion Gap 14 5-15 Blood Urea Nitrogen 12 9-23 mg/dL Creatinine 0.71 0.550-1.02 mg/dL Glomerular Filtration Rate Calc 108 >90 mL/min BUN/Creatinine Ratio 16.9 10.0-20.0 Serum Glucose 177 H 74-106 mg/dL Calcium Level 10.0 8.7-10.4 mg/dL B-Type Natriuretic Peptide 2.47 0-100 pg/mL Current Medications Medications (Trade) Dose Ordered Sig/Jessica Route Start Time Stop Time Status Last Admin Albuterol (Ventolin Medneb) 2.5 mg ONCE ONCE NEB 06/05/25 22:30 06/05/25 22:31 DC 06/05/25 22:50 Ipratropium Draper (Atrovent Medneb) 0.5 mg ONCE ONCE NEB 06/05/25 22:30 06/05/25 22:31 DC 06/05/25 22:50 [place] [id number] Ph: [phone] DIAGNOSTIC IMAGING Diagnostic Imaging Report : [id number] Signed PATIENT: RUPA WAGGONER: [id number] UNIT: [id number] : 1980 LOC: ER ROOM / BED: / AGE / SEX: 44 / F ADM STATUS: REG ER SERVICE 32 ORDERING PHYSICIAN: JAVI TOMLINSON MD PROCEDURE(s): CXR1 - CHEST XRAY 1 VIEW REASON: cp ORDER NUMBER(s): [id number], ACCESSION NUMBER(s): [id number] CHEST RADIOGRAPH Indication: cp Technique: Single frontal view of the chest was obtained COMPARISON: XY CHEST PORTABLE on DOS: 05/28/25, XY CHEST PORTABLE on DOS: 04/20/25 , XY CHEST PORTABLE on DOS: 04/12/25, XY CHEST XRAY 1 VIEW on DOS: 04/02/25, XY CHEST TWO VIEWS ROUTINE on DOS: 03/26/25 FINDINGS: Lines and Tubes: None Lungs: Clear Pleura: No effusion. No pneumothorax. Cardiomediastinal contours: Unremarkable Bones: Unremarkable IMPRESSION: 1. No acute disease. ATED BY: KHANG LEE MD DICTATED DATE/TIME: 06/05/25 [id number] SIGNED BY: KHANG LEE MD SIGNED DATE/TIME: 06/05/252327 CC: Time of 1ST Reevaluation: 23:20 Reevaluation 1ST: Unchanged Patient Education/Counseling: Other (Need for admission) Family Education/Counseling: No Family Present SEPSIS Sepsis Screen Physician Orders Electrocardigram (06/05/25 22:00) BIPAP (06/05/25 22:28) Chest Xray 1 View (06/05/25 22:33) Vital Signs Q1HR (06/05/25 22:33) Saline Lock (06/05/25 22:33) Brick Tosser (06/05/25 ) Covid19 Antigen Manuela (06/05/25 ) Rapid Influenza A&B (06/05/25 22:33) Abg W/ Co-Ox (06/05/25 23:06) Vital Signs Date Time Temp Pulse Resp B/P (MAP) Pulse Ox O2 Delivery O2 Flow Rate FiO2 06/06/25 00:18 88 108/80 98 Facial BiPAP Mask 30 06/06/25 00:00 87 06/05/25 23:31 114 25 100 50 06/05/25 23:06 122 06/05/25 22:15 114 Facial BiPAP Mask 50 06/05/25 21:57 122 06/05/25 21:54 98.9 135 42 158/114 99 98.9 06/05/25 21:54 99 Non-Rebreather 15 N/A Laboratory Tests Test 06/05/25 22:50 White Blood Count 13.9 10^3/uL (4.4-10.8) H Medications Medications Dose Ordered Sig/Jessica Route Start Time Stop Time Status Last Admin Dose Admin Albuterol 2.5 mg ONCE ONCE NEB 06/05/25 22:30 06/05/25 22:31 DC 06/05/25 22:50 Ipratropium Draper 0.5 mg ONCE ONCE NEB 06/05/25 22:30 06/05/25 22:31 DC 06/05/25 22:50 Departure 1 Departure Time of Disposition: 01:36 Impression: Primary Impression: Acute asthma exacerbation Disposition: ADMITTED INPATIENT Condition: Guarded Comments MDM: Patient admitted to hospitalist service for further treatment, evaluation and monitoring. Extensive evaluation was performed in attempt to identify or rule out: (See differential diagnosis section) The following tests were ordered, and results were reviewed by me and discussed with patient: (See diagnostic results section) Decision regarding hospitalization or escalation of hospital level of care: Risk and benefits of admission for further treatment of patient's condition was considered. Due to patient's current clinical condition, high risk of decline and poor outcome if discharged and need for further inpatient management and monitoring, patient will be admitted to the hospital. Critical Care Note Critical Care Time?: No Stability Stability form required: No Heart Score Heart Score: Heart Score Response (Comments) Value History N/A 0 EKG N/A 0 Age N/A 0 Risk Factors N/A 0 Troponin N/A 0 Total 0 I personally scribed for JAVI TOMLINSON MD ([email or web address]) on 06/05/25 at 23:06. Electronically submitted by Marielle Sargent ([email or web address]). I personally scribed for JAVI TOMLINSON MD ([email or web address]) on 06/06/25 at 01:10. Electronically submitted by Marielle Sargent ([email or web address]). JAVI TOMLINSON MD Jun 05, 2025 23:06
--- NOTE | 2025-06-05 23:30 | DVH ---
CHEST RADIOGRAPH Indication: cp Technique: Single frontal view of the chest was obtained COMPARISON: XY CHEST PORTABLE on DOS: 05/28/25, XY CHEST PORTABLE on DOS: 04/20/25, XY CHEST PORTABLE o n DOS: 04/12/25, XY CHEST XRAY 1 VIEW on DOS: 04/02/25, XY CHEST TWO VIEWS ROUTINE on DOS: 03/26/25 FINDINGS: Lines and Tubes: None Lungs: Clear Pleura: No effusion. No pneumothorax. Cardiomediastinal contours: Unremarkable Bones: Unremarkable IMPRESSION: 1. No acute disease.
[2025-06-05 23:31] VITALS: PULSE 114; RESP 25; O2SAT 100
[2025-06-05 23:34] LABS: Chloride 106 mmol/L (98-107); Potassium 4.0 mmol/L (3.5-5.1); Sodium 140 mmol/L (136-145)
[2025-06-05 23:35] LABS: Anion Gap 14 (5-15); Calcium 10.0 mg/dL (8.7-10.4); Carbon Dioxide 20 mmol/L (20-31)
[2025-06-05 23:37] LABS: Base Excess 1.3 mmol/L (-2.0-3.0)
[2025-06-05 23:40] LABS: BUN/Creatinine Ratio 16.9 (10.0-20.0); Blood Urea Nitrogen 12 mg/dL (9-23)
[2025-06-06] VITALS (19 sets, daily range): BP systolic 101–115; BP diastolic 51–84; PULSE 71–103; RESP 14–19; TEMP 97.7; O2SAT 95–100
[2025-06-06 00:04] LABS: Glucose 177 mg/dL (74-106)
[2025-06-06] MEDS ORDERED: MORPHINE SULFATE INJ 2 MG/ml SYRG IV PRN (02:15)
[2025-06-06] MEDS: AZITHROMYCIN 500MG/ 250ML 250 ML IV ONE (02:15)
[2025-06-06] MEDS: ALBUTEROL SULF 2.5 MG/0.5ML(0.5%) NEB SOLN NEB ONE (02:15)
[2025-06-06] MEDS: IPRATROPIUM BROM 0.5 MG/2.5ML INH SOL NEB ONE (02:15)
[2025-06-06] MEDS ORDERED: ACETAMINOPHEN 325 MG TAB PO PRN (02:15)
[2025-06-06] MEDS: BUDESONIDE (INHALATION) 0.5 MG/2 ML NEB NEB ONE (02:15)
[2025-06-06] MEDS ORDERED: ONDANSETRON HCL 4 MG/2 ML VIAL IV PRN (02:15)
[2025-06-06] MEDS ORDERED: HYDROcodone-ACET 5/325MG TAB PO PRN (02:15)
[2025-06-06] MEDS: methylPREDNISolone SOD SUCC 125 MG/2 ML VL IV ONE (02:15)
--- NOTE | 2025-06-06 02:49 | DVHHPRES ---
History of Present Illness Resident Creating Document: JAZMINE PICHARDO RESIDENT History of Present Illness This is a 44-year-old female with past medical history of recurrent asthma exacerbations ( most recent hospitalization on 05/28/2025 and discharged on 05/30/2025 for the same reason), Koki's disease, spinal bifida, osteopo rossarah came in with a chief complaint of shortness of breaths / asthma exacerbation after mom use the cleaning product to mop the floor. Patient reports that she tried med nebulizations but it did not help which prompted her to call 911 and come to the ER. she also reports that she met specialist yesterday who prescribed her new medications, the names of which she can not remember but due to insurance problem she was not able to get them. For her Koki's disease she takes no medication and has an appointment with an weight analyst in [place] next month. Patient has visited ED several times for respiratory distress due to Asthma. She was placed on CPAP en route to ED and given epi. Patient denies any chest pain, headache, dizziness, fever, chills, nausea, vomiting, abdominal pain or any other modifying factors and symptoms. On admission her WBC is at 13.9 and rest of the labs are normal. Vitals are stable. BNP is 2.47, troponin negative. ABG shows respiratory alkalosis. We admitting her for further treatment. Past medical history: Asthma, osteoporosis, Koki's disease, spinal bifida Past surgical history: Appendectomy, cholecystectomy, tonsillectomy, surgery intestinal additions, 3 C sections, right knee surgery for osteoporosis Family history: Mother had 3 CO attacks this year, is diabetic; patient has kids have asthma home medication: Med nebulizations, gabapentin, Flexeril, calcium, vitamin-D social history: Patient denies ever smoking, drinking alcohol or taking any other illicit drugs primary care physician: Dr. Luong code status: Full code Review of Systems Constitutional: No: Fever, Chills, Sweats, Weakness, Malaise, Other Eyes: No: Pain, Vision change, Conjunctivae inflammation, Eyelid inflammation, Other, Redness ENT: No: Ear pain, Ear discharge, Nose pain, Nose discharge, Nose congestion, Mouth pain, Mouth swelling, Throat pain, Throat swelling, Other Respiratory: Shortness of breath, SOB with excertion; No: Cough, Dry, Wheezing, Hemoptysis, Pleuritic Pain, Sputum, Wheezing, Other Cardiovascular: No: Chest Pain, Palpitations, Orthopnea, Paroxysmal Noc. Dyspnea, Edema, Lt Headedness, Other Gastrointestinal: No: Nausea, Vomiting, Abdominal Pain, Diarrhea, Constipation, Melena, Hematochezia, Other Genitourinary: No Dysuria, No Frequency, No Incontinence, No Hematuria, No Retention, No Other Musculoskeletal: No: other, neck pain, shoulder pain, arm pain, back pain, hand pain, leg pain, foot pain Skin: No: Rash, Lesions, Jaundice, Bruising, Other Neurological: No: Weakness, Numbness, Incoordination, Change in speech, Confusion, Seizures, Other Allergies: Coded Allergies: Ibuprofen (Verified Allergy, Unknown, 04/25/23) Levothyroxine (Verified Allergy, Unknown, 04/25/23) Medications Current Medications Medications Dose Ordered Sig/Jessica Route Start Time Stop Time Status Last Admin Dose Admin Acetaminophen/ Hydrocodone Bitart 1 tab Q4HP PRN PO 06/06/25 02:15 UNV Ondansetron HCl 4 mg Q4HP PRN IV 06/06/25 02:15 UNV Acetaminophen 650 mg Q6HP PRN PO 06/06/25 02:15 UNV Morphine Sulfate 2 mg Q4HPRN PRN IV 06/06/25 02:15 UNV Enoxaparin Sodium 40 mg DAILY SC 06/06/25 02:15 UNV Ipratropium Jackson 0.5 mg Q4HWA NEB 06/06/25 06:00 UNV Albuterol 2.5 mg Q4HPRN PRN NEB 06/06/25 02:15 UNV Azithromycin 250 ml @ 125 mls/hr DAILY IV 06/07/25 10:00 UNV Methylprednisolone Sodium Succinate 60 mg BID IV 06/06/25 22:00 UNV Budesonide 0.5 mg BID NEB 06/06/25 10:00 UNV Exam Vital Signs Vital Signs Date Time Temp Pulse Resp B/P (MAP) Pulse Ox O2 Delivery O2 Flow Rate FiO2 06/06/25 00:18 88 108/80 98 Facial BiPAP Mask 30 06/05/25 23:31 25 Exam Pt is lying on bed General Appearance: Alert, Oriented X3, Cooperative, in acute distress HEENT: Atraumatic, Mucous membranes moist/pink, on BiPAP Respiratory: Clear to auscultation, Normal air movement, No added sounds Cardiovascular: Regular rate, Normal S1, Normal S2, No murmurs Abdominal: Active bowel sounds, Soft, no distention, no tenderness Extremities: No edema, Normal pulses, No tenderness/swelling Skin: No Significant rash, except past surgical scars Neuro: Normal speech, sensorimotor deficits none Psych/Mental Status: Mental status NL, Mood NL Nurse was there as loss prevention associate during examination Labs/Xrays Labs Test 06/06/25 02:00 06/05/25 23:28 06/05/25 22:50 Range/Units Troponin I High Sensitivity < 3 L </=34 ng/L Blood Gas Specimen Type Arterial Blood Gas Sample Site Left radial Blood Gas Patient Temperature 37.0 Arterial Blood Date Drawn Arterial Blood pH 7.530 H 7.350-7.450 Arterial Blood Partial Pressure CO2 27.9 L 32.0-45.0 mmHg Arterial Blood Partial Pressure O2 65.0 L 83.0-108.0 mmHg Arterial Blood HCO3 22.8 21.0-28.0 mmol/L Arterial Blood Oxygen Saturation 94.3 94.0-98.0 % Arterial Blood Base Excess 1.3 -2.0-3.0 mmol/L Arterial Blood Oxyhemoglobin 93.6 L 94.0-98.0 % Arterial Blood Carboxyhemoglobin 0.2 L 0.5-1.5 % Arterial Blood Methemoglobin 0.5 0.0-1.5 % Giacomo Test Modified Blood Gas Total Hemoglobin 14.30 12.0-16.0 g/dL Blood Gas Modality Vent - ac FiO2 % 50.0 Blood Gas EPAP 5 Blood Gas IPAP 12 White Blood Count 13.9 H 4.4-10.8 10^3/uL Red Blood Count 4.98 4.0-5.20 10^6/uL Hemoglobin 13.9 12.2-16.2 g/dL Hematocrit 41.6 36.0-46.0 % Mean Corpuscular Volume 83.7 80.0-100.0 fL Mean Corpuscular Hemoglobin 27.8 L 28.0-32.0 pg Mean Corpuscular Hemoglobin Concent 33.3 32.0-36.0 g/dL Red Cell Distribution Width 16.0 H 11.8-14.3 % Platelet Count 332 140-450 10^3/uL Mean Platelet Volume 7.4 6.9-10.8 fL Neutrophils (%) (Auto) 72.2 37.0-80.0 % Lymphocytes (%) (Auto) 23.1 10.0-50.0 % Monocytes (%) (Auto) 4.3 0.0-12.0 % Eosinophils (%) (Auto) 0.0 0.0-7.0 % Basophils (%) (Auto) 0.4 0.0-2.0 % Neutrophils # (Auto) 10.0 H 1.6-8.6 10 ^3/uL Lymphocytes # (Auto) 3.2 0.4-5.4 10 ^3/uL Monocytes # (Auto) 0.6 0-1.3 10 ^3/uL Eosinophils # (Auto) 0 0-0.8 10 ^3/uL Basophils # (Auto) 0.1 0-0.2 10 ^3/uL Nucleated Red Blood Cells 0.1 % Sodium Level 140 136-145 mmol/L Potassium Level 4.0 3.5-5.1 mmol/L Chloride Level 106 98-107 mmol/L Carbon Dioxide Level 20 20-31 mmol/L Anion Gap 14 5-15 Blood Urea Nitrogen 12 9-23 mg/dL Creatinine 0.71 0.550-1.02 mg/dL Glomerular Filtration Rate Calc 108 >90 mL/min BUN/Creatinine Ratio 16.9 10.0-20.0 Serum Glucose 177 H 74-106 mg/dL Calcium Level 10.0 8.7-10.4 mg/dL B-Type Natriuretic Peptide 2.47 0-100 pg/mL SEPSIS Sepsis Screen Physician Orders Electrocardigram (06/05/25 22:00) BIPAP (06/05/25 22:28) Chest Xray 1 View (06/05/25 22:33) Vital Signs Q1HR (06/05/25 22:33) Saline Lock (06/05/25 22:33) Commercial Real Estate Manager (06/05/25 ) Covid19 Antigen Manuela (06/05/25 ) Rapid Influenza A&B (06/05/25 22:33) Abg W/ Co-Ox (06/05/25 23:06) Admit (06/06/25 02:11) Code Status (06/06/25 02:11) Oxygen Per Hour (06/06/25 02:11) Hydrocodone-Acet 5/325mg Tab (Lambert 5/32 (06/06/25 02:15) Ondansetron Hcl (Zofran) (06/06/25 02:15) Complete Blood Count (06/06/25 04:00) Comprehensive Metabolic Panel (06/06/25 04:00) Condition: Unstable (06/06/25 02:11) Acetaminophen Tablet (Tylenol Tablet) (06/06/25 02:15) Morphine Sulfate Injection (06/06/25 02:15) Enoxaparin Sodium (Lovenox) (06/06/25 02:15) Oxygen By Nasal Cannula (06/06/25 02:11) Stat Ekg For Chest Pain (06/06/25 02:11) Notify Md Of Changes From Base (06/06/25 02:11) Ipratropium Medneb (Atrovent Medneb) (06/06/25 06:00) Albuterol Medneb (Ventolin Medneb) (06/06/25 02:15) Urinalysis (06/06/25 02:11) Azithromycin 500mg/ 250ml (Zithromax 50 (06/06/25 02:15) Azithromycin 500mg/ 250ml (Zithromax 50 (06/07/25 10:00) Methylprednisolone Sod Succ (Solu Medrol (06/06/25 22:00) Methylprednisolone Sod Succ (Solu Medrol (06/06/25 02:15) Budesonide (Inhalation) (Pulmicort) (06/06/25 10:00) Budesonide (Inhalation) (Pulmicort) (06/06/25 02:15) Albuterol Medneb (Ventolin Medneb) (06/06/25 02:15) Ipratropium Medneb (Atrovent Medneb) (06/06/25 02:15) Rapid Influenza A&B (06/06/25 02:11) Npo Except Ice Chips (06/06/25 02:11) Npo (Nothing By Mouth) Diet (06/06/25 Breakfast) Vital Signs Date Time Temp Pulse Resp B/P (MAP) Pulse Ox O2 Delivery O2 Flow Rate FiO2 06/06/25 00:18 88 108/80 98 Facial BiPAP Mask 30 06/06/25 00:00 87 06/05/25 23:31 114 25 100 50 06/05/25 23:06 122 06/05/25 22:15 114 Facial BiPAP Mask 50 06/05/25 21:57 122 Laboratory Tests Test 06/05/25 22:50 White Blood Count 13.9 10^3/uL (4.4-10.8) H Medications Medications Dose Ordered Sig/Jessica Route Start Time Stop Time Status Last Admin Dose Admin Albuterol 2.5 mg ONCE ONCE NEB 06/05/25 22:30 06/05/25 22:31 DC 06/05/25 22:50 2.5 MG Ipratropium Jackson 0.5 mg ONCE ONCE NEB 06/05/25 22:30 06/05/25 22:31 DC 06/05/25 22:50 0.5 MG Assessment/Plan Assessment/Plan #Acute hypoxic respiratory failure secondary to acute exacerbation of asthma #Vocal cord dysfunction #COVID, influenza test, pending Med nebulization albuterol 2.5 mg q.4 PRN Med nebulization ipratropium 0.5 mg q.4 PRN med nebulization Budesonide 0.5 mg twice a day scheduled ABG shows respiratory alkalosis azithromycin 5 mg IV daily scheduled Methylprednisolone 60 mg IV b.i.d. scheduled patient on BiPAP chest x-ray shows no acute cardiopulmonary disease #Chronic pain syndrome Pain control with : Acetaminophen 600 mg p.o. q.4 PRN for mild pain Lambert 5/325 mg p.o. q.4 for moderate pain morphine 2 mg IV q.4 PRN for severe pain ondansetron 4 mg IV q.4 PRN #Koki's thyroiditis Follow up outpatient with the weight analyst as per appointment #osteoporosis continue home medications of vitamin-D and calcium #Obesity, BMI 31 I have counseled the patient regarding the need for weight loss, healthy lifestyle, diet control for over 10 minutes DVT prophylaxis: Lovenox 40 mg subcutaneous daily Diet: NPO except ice chips for now as patient is on BiPAP Goals of care discussed with the patient for more than 27 minutes: Full code status Case discussed with , patient Plan discussed with: Patient My Orders Orders - JAZMINE PICHARDO RESIDENT Procedure Category Date Status Time Admit ADMIT 06/06/25 Transmitted 02:11 Code Status CODE 06/06/25 Transmitted 02:11 Oxygen Per Hour RT 06/06/25 Transmitted 02:11 Hydrocodone-Acet PHA 06/06/25 Logged 5/325mg Tab (Lambert 02:15 Ondansetron Hcl PHA 06/06/25 Logged (Zofran) 02:15 Complete Blood Count LAB 06/06/25 Logged 04:00 Comprehensive LAB 06/06/25 Logged Metabolic Panel 04:00 Condition: Unstable TARAN 06/06/25 In Process 02:11 Acetaminophen Tablet PHA 06/06/25 Logged (Tylenol Tablet) 02:15 Morphine Sulfate PHA 06/06/25 Logged Injection 02:15 Enoxaparin Sodium PHA 06/06/25 Logged (Lovenox) 02:15 Oxygen By Nasal RT 06/06/25 Transmitted Cannula 02:11 Stat Ekg For Chest TARAN 06/06/25 In Process Pain 02:11 Notify Md Of Changes TARAN 06/06/25 In Process From Base 02:11 Ipratropium Medneb PHA 06/06/25 Logged (Atrovent Medneb) 06:00 Albuterol Medneb PHA 06/06/25 Logged (Ventolin Medneb) 02:15 Urinalysis LAB 06/06/25 Logged 02:11 Azithromycin 500mg/ PHA 06/06/25 Logged 250ml (Zithromax 50 02:15 Azithromycin 500mg/ PHA 06/07/25 Logged 250ml (Zithromax 50 10:00 Methylprednisolone PHA 06/06/25 Logged Sod Succ (Solu Medrol 22:00 Methylprednisolone PHA 06/06/25 Logged Sod Succ (Solu Medrol 02:15 Budesonide PHA 06/06/25 Logged (Inhalation) 10:00 Budesonide PHA 06/06/25 Logged (Inhalation) 02:15 Albuterol Medneb PHA 06/06/25 Logged (Ventolin Medneb) 02:15 Ipratropium Medneb PHA 06/06/25 Logged (Atrovent Medneb) 02:15 Rapid Influenza A&B LAB 06/06/25 Logged 02:11 Npo Except Ice Chips TARAN 06/06/25 In Process 02:11 Npo (Nothing By DIET 06/06/25 Transmitted Mouth) Diet Breakfast Date of Service: Jun 06, 2025 Billing Provider: MARY MEJIA MD Common Visit Codes: [id number] INP/OBS CARE (HIGH) Secondary Visit Codes: [id number] CARE PLAN 30 MINUTES JAZMINE PICHARDO RESIDENT Jun 06, 2025 02:49 MARY MEJIA MD Jun 06, 2025 08:43
[2025-06-06] MEDS: ENOXAPARIN SOD 40 MG/0.4 ML SYRINGE SC SCH (04:00)
[2025-06-06 04:33] LABS: Hematocrit 37.9 % (36.0-46.0); Hemoglobin 12.5 g/dL (12.2-16.2); Mean Corpuscular Hemoglobin 28.1 pg (28.0-32.0); Mean Corpuscular Volume 84.9 fL (80.0-100.0); Nucleated Red Blood Cells % 0.1 %
[2025-06-06] MEDS: HYDROmorphone HCL 2 MG/ML VL/or syr IV ONE (04:36)
[2025-06-06 04:58] LABS: Alanine Aminotransferase 15 U/L (7-40); Albumin 4.3 g/dL (3.2-4.8); Alkaline Phosphatase 88 U/L (46-116); Anion Gap 13 (5-15); BUN/Creatinine Ratio 17.2 (10.0-20.0); Blood Urea Nitrogen 11 mg/dL (9-23); Calcium 9.5 mg/dL (8.7-10.4); Carbon Dioxide 23 mmol/L (20-31); Chloride 106 mmol/L (98-107); Glucose 90 mg/dL (74-106); Potassium 3.8 mmol/L (3.5-5.1); Sodium 142 mmol/L (136-145); Total Protein 6.6 g/dL (5.7-8.2)
[2025-06-06 04:59] LABS: Bilirubin, Total 0.2 mg/dL (0.2-1.0)
[2025-06-06] MEDS: HYDROmorphone HCL 2 MG/ML VL/or syr IV PRN (05:57)
[2025-06-06] MEDS: ALBUTEROL SULF 2.5 MG/0.5ML(0.5%) NEB SOLN NEB PRN (06:42)
[2025-06-06] MEDS: IPRATROPIUM BROM 0.5 MG/2.5ML INH SOL NEB SCH (06:42)
[2025-06-06] MEDS: BUDESONIDE (INHALATION) 0.5 MG/2 ML NEB NEB SCH (06:42)
--- NOTE | 2025-06-06 08:02 | ECG ---
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 Consider acute myocardial infarction. Electronically Signed On 06-10-2025 14:22:56 PDT by Shantanu Buitrago Please click the below link to view image of tracing.
[2025-06-06 10:28] LABS: COVID19 ANTIGEN SOFIA FIA NEGATIVE (NEGATIVE)
--- NOTE | 2025-06-06 11:52 | DVHPNRES ---
Progress Note Date Seen: Jun 06, 2025 Resident Creating Document: MARKUS VALENZUELA RESIDENT Medical Necessity Reason Pt with a Central, PICC or Fol: No Subjective Review of Systems Brief history on admission: This is a 44-year-old female with past medical history of recurrent asthma exacerbations ( most recent hospitalization on 05/28/2025 and discharged on 05/30/2025 for the same reason), Koki's disease, spinal bifida, osteoporosis came in with a chief complaint of shortness of breaths / asthma exacerbation after mom use the cleaning product to mop the floor. Patient reports that she tried med nebulizations but it did not help which prompted her to call 911 and come to the ER. she also reports that she met specialist yesterday who prescribed her new medications, the names of which she can not remember but due to insurance problem she was not able to get them. Patient has past history of vocal cord dysfunction due to repeated intubations, she has been recommended Botox injections, which she has not followed through. For her Koki's disease she takes no medication and has an appointment with an delinquent tax collection assistant in [place] next month. Patient has visited ED several times for respiratory distress due to Asthma. She was placed on CPAP en route to ED and given epi. Patient denies any chest pain, headache, dizziness, fever, chills, nausea, vomiting, abdominal pain or any other modifying factors and symptoms. On admission her WBC is at 13.9 and rest of the labs are normal. Vitals are stable. BNP is 2.47, troponin negative. ABG shows respiratory alkalosis. We admitting her for further treatment. Past medical history: Asthma, osteoporosis, Koki's disease, spinal bifida Past surgical history: Appendectomy, cholecystectomy, tonsillectomy, surgery intestinal additions, 3 C sections, right knee surgery for osteoporosis Family history: Mother had 3 DE attacks this year, is diabetic; patient has kids have asthma home medication: Med nebulizations, gabapentin, Flexeril, calcium, vitamin-D social history: Patient denies ever smoking, drinking alcohol or taking any other illicit drugs primary care physician: Dr. Luong code status: Full code ROS: Constitutional: Denies weight loss, fever and chills. HEENT: Denies changes in vision and hearing. Respiratory: Cough, shortness of breaths Cardiovascular: Denies chest discomfort or palpitations GI: Denies abdominal pain, nausea, vomiting and diarrhea. : Denies dysuria and urinary frequency. Musculoskeletal: Denies myalgias and joint pain Skin: Denies rash and pruritus. Neurological: Denies dizziness, headache, vision or hearing problems 06/06/2025: Patient was examined at bedside today. No new complaints. Objective vital signs Vital Sign Date Time Temp Pulse Resp B/P (MAP) Pulse Ox O2 Delivery O2 Flow Rate FiO2 06/06/25 11:34 91 17 111/74 06/06/25 10:40 99 06/06/25 06:41 Room Air* 0 21 06/06/25 04:01 98.1 98.1 medications Current Medications Medications Dose Ordered Sig/Jessica Route Start Time Stop Time Status Last Admin Dose Admin Acetaminophen/ Hydrocodone Bitart 1 tab Q4HP PRN PO 06/06/25 02:15 Ondansetron HCl 4 mg Q4HP PRN IV 06/06/25 02:15 Acetaminophen 650 mg Q6HP PRN PO 06/06/25 02:15 Enoxaparin Sodium 40 mg DAILY@0400 MS 06/06/25 04:00 06/06/25 04:00 40 MG Ipratropium Sasser 0.5 mg Q4HWA NEB 06/06/25 06:00 06/06/25 10:30 0.5 MG Albuterol 2.5 mg Q4HPRN PRN NEB 06/06/25 02:15 06/06/25 10:30 2.5 MG Azithromycin 250 ml @ 125 mls/hr DAILY IV 06/07/25 10:00 UNV Methylprednisolone Sodium Succinate 60 mg BID IV 06/06/25 22:00 Budesonide 0.5 mg BID NEB 06/06/25 10:00 06/06/25 06:42 0.5 MG Azithromycin 250 ml @ 125 mls/hr DAILY IV 06/07/25 04:00 Hydromorphone HCl 0.25 mg Q4HPRN PRN IV 06/06/25 04:15 06/06/25 11:34 0.25 MG Examination General: Patient alert and oriented in person, place and time. Patient following commands. HEENT: Normocephalic, atraumatic, moist mucous membranes Respiratory/pulmonary: Clear lungs bilaterally, vesicular murmurs present in almost all lung medrano, no associated crackles or wheezes. Cardiovascular: Normal heart sounds S1 and S2 with no associated murmurs Abdomen: Abdomen nondistended, there is no pain to palpation in any of the abdominal quadrants, no palpable masses. Extremities: There is no peripheral edema present at the lower extremities. Peripheral Pulses: 3+ Radial (R). 3+ Radial (L). 3+ Dorsalis pedis (R). 3+ Dorsalis pedis(L) Skin: No rashes or pruritus, there is no sacral edema present at this time. Neurological: Intact cranial nerves with no focal neurologic deficits laboratory and microbiology Laboratory Tests 06/06/25 03:56 Test 06/06/25 03:56 Range/Units Serum Glucose 90 74-106 mg/dL Problem List/Assessment/Plan Problem List/Assessment/Plan Acute hypoxic respiratory failure secondary to acute exacerbation of asthma Vocal cord dysfunction Serology negative for influenza, COVID Med nebulization albuterol 2.5 mg q.4 PRN Med nebulization ipratropium 0.5 mg q.4 PRN Med nebulization Budesonide 0.5 mg twice a day scheduled ABG shows respiratory alkalosis Azithromycin 5 mg IV daily scheduled Methylprednisolone 60 mg IV b.i.d. scheduled On nightly BiPAP Chest x-ray shows no acute cardiopulmonary disease Pulmonology consulted Chronic pain syndrome Supportive management with pain medications, Zofran Koki's thyroiditis TSH, T3, T4 ordered Follow up outpatient with the delinquent tax collection assistant as per appointment Osteoporosis continue home medications of vitamin-D and calcium Obesity, BMI 31 I have counseled the patient regarding the need for weight loss, healthy lifestyle, diet control for over 10 minutes DIET: Advanced diet DVT PROPHYLAXIS: Lovenox GI PROPHYLAXIS: Protonix CODE STATUS: Goals of care discussed with patient at bedside for more than 17 minutes. Full code DISPOSITION: Telemetry This medical document was created using an electronic medical record system with [employer] direct computerized dictation system. Although this document has been carefully reviewed, there may still be some phonetic and typographical errors. These areas are purely typographical due to imperfections of the software programs, and do not reflect any compromise in the patient's medical care. Patient's status and plan discussed with the patient. Case discussed with Dr. Castellano Plan discussed with: Patient, Other (Nurses) My Orders My Orders Orders - MARKUS VALENZUELA RESIDENT Procedure Category Date Status Time Respiratory Culture BENJA 06/06/25 In Process W/ Gs 06:45 Sputum Induction RT 06/06/25 Logged 06:45 Thyroid Stimulating LAB 06/06/25 Logged Hormone 10:28 Free T4 (Free LAB 06/06/25 Logged Thyroxine) 10:28 T3 Total LAB 06/06/25 Logged 10:28 *Consult CONS 06/06/25 Transmitted 10:28 Date of Service: Jun 06, 2025 Billing Provider: HELADIO CASTELLANO MD Common Visit Codes: [id number] INP/OBS CARE(HIGH) MARKUS VALENZUELA RESIDENT Jun 06, 2025 11:52
[2025-06-06 13:59] LABS: Free T4 (Free Thyroxine) 1.28 ng/dL (0.89-1.76)
[2025-06-06 14:13] LABS: Urine Protein, UAD TRACE (Negative)
[2025-06-06] MEDS: methylPREDNISolone SOD SUCC 125 MG/2 ML VL IV SCH (21:10)
--- NOTE | 2025-06-06 22:07 | DVHINCON2 ---
Date of service: Jun 06, [address] Engle Reason for Consultation Acute hypoxic respiratory failure and asthma exacerbation. History of Present Illness A 44-year-old woman with past medical history of recurrent asthma exacerbations ( most recent hospitalization on 05/28/2025 and discharged on 05/30/2025 for the same reason), Koki's disease, spina bifida, and osteoporosis who presented to ED on 06/05/25 with a chief complaint of shortness of breath/asthma exacerbation after mom used a cleaning product to mop the floor. Patient reports that she tried med nebulizations but it did not help, which prompted her to call 911 and come to the ER. Patient was placed on CPAP en route to ED and given epi. She denied any chest pain, headache, dizziness, fever, chills, nausea, vomiting, abdominal pain or any other complaints. On admission her WBC was at 13.9 and rest of the labs were normal. Vitals were stable. BNP 2.47, troponin negative. ABG showed respiratory alkalosis. Patient was admitted for further care. Pulmonary consultation is requested for evaluation and management of acute hypoxic respiratory failure and asthma exacerbation. Review of Systems: 14-point review of systems negative unless otherwise noted above. Past Medical History: Asthma, osteoporosis, Koki's disease, spina bifida Past Surgical History: Appendectomy, cholecystectomy, tonsillectomy, surgery intestinal additions, 3 C sections, right knee surgery for osteoporosis Medications: Reviewed. Allergies: Ibuprofen, levothyroxine Family History: Mother had 3 OK attacks this year, is diabetic. Patient has kids who have asthma. Social History: Nonsmoker. No alcohol or illicit drug use. Family History: Cardiovascular disease G8 MOTHER Cerebrovascular accident (CVA) G8 MOTHER G8 FATHER Diabetes mellitus G8 MOTHER G8 FATHER G8 MOTHER Diabetes mellitus G8 MOTHER G8 FATHER G8 MOTHER FH: CHF (congestive heart failure) G8 MOTHER FH: bipolar disorder G8 MOTHER FH: cancer G8 MOTHER G8 FATHER FH: myocardial infarction G8 MOTHER FH: throat cancer G8 FATHER FHx: stroke G8 MOTHER G8 FATHER Hypertension G8 FATHER Allergies: Coded Allergies: Ibuprofen (Verified Allergy, Unknown, 04/25/23) Levothyroxine (Verified Allergy, Unknown, 04/25/23) Home Meds Active Scripts Azithromycin (Azithromycin) 500 Mg Tab, 1 TAB PO DAILY for 3 Days, #3 TAB Prov:SIRENA MCCAIN RESIDENT 06/07/25 Prednisone (Prednisone) 20 Mg Tab, 40 MG PO DAILY for 5 Days, #10 MG Prov:SIRENA MCCAIN RESIDENT 06/07/25 Prednisone (Prednisone) 20 Mg Tab, 20 MG PO DAILY for 7 Days, #7 MG Prov:TINO SCHULTE IT SECURITY ENGINEER 05/31/25 Azithromycin (Zithromax Z-Lonnie) 250 Mg Tab, 250 MG PO DAILY for 4 Days, #4 TAB Z-Pack unit dose pack #1 Administer as directed Prov:TINO SCHULTE IT SECURITY ENGINEER 05/31/25 Azithromycin (ZITHROMAX TABLET) 250 Mg Tb, 250 MG PO DAILY, #6 TAB take 2 tabs the first day, then 1 tab daily until finish Prov:HEATHER CLARK MD 04/23/25 Methylprednisolone (Medrol Dosepak) 4 Mg Lonnie, 4 MG PO UD, #21 TAB UAD Prov:HEATHER CLARK MD 04/23/25 Albuterol Sulfate (Ventolin) 2.5 Mg/0.5 Ml Nb, 2.5 MG NEB Q4HPRN PRN for 30 Days, #30 INH Prov:MAXIME GRIDER RESIDENT 01/11/24 Reported Medications Montelukast Sodium (MONTELUKAST SODIUM) 10 Mg Tab, 1 TAB PO DAILY 08/02/24 Docusate Sodium (Colace) 100 Mg Cap, 100 MG PO DAILY for CONSTIPATION, CAP 01/08/24 Cholecalciferol (VITAMIN D3) 2,000 Unit Tab, 5000 UNIT OR QWEEKLY for LOW VITAMIN D, TAB 01/08/24 Cyclobenzaprine Hcl (Cyclobenzaprine Hcl) 10 Mg Tab, 5 MG PO BID for MUSCLE RELAXANT for 30 Days, MG 11/30/23 Oxycodone W/ Acetaminophen (Apap/Oxycodone) 1 Tab Tab, 1 TAB PO QID PRN for BACK PAIN,, #90 TAB 10/325 08/27/23 Ferrous Sulfate (Ferosul) 325 Mg Tab, 325 PO DAILY for ANEMIA 03/03/23 Gabapentin (Gabapentin) 300 Mg Cap, 300 MG PO BID PRN for NEUROPATHRY LEG PAIN 03/02/23 Current Medications Current Medications Medications (Trade) Dose Ordered Sig/Jessica Route PRN Reason Start Time Stop Time Status Last Admin Acetaminophen/ Hydrocodone Bitart ([place] 5/325MG Tab) 1 tab Q4HP PRN PO MODERATE PAIN (4-6 PAIN SCALE) 06/06/25 02:15 Ondansetron HCl (Zofran) 4 mg Q4HP PRN IV NAUSEA / VOMITING 06/06/25 02:15 Acetaminophen (Tylenol Tablet) 650 mg Q6HP PRN PO PAIN SCALE 1-3 OR TEMP>100.4 06/06/25 02:15 Morphine Sulfate 2 mg Q4HPRN PRN IV SEVERE PAIN (7-10 PAIN SCALE) 06/06/25 02:15 06/06/25 04:15 DC Enoxaparin Sodium (Lovenox) 40 mg DAILY@0400 SC 06/06/25 04:00 06/06/25 04:00 Ipratropium Pes[place]igo (Atrovent Medneb) 0.5 mg Q4HWA NEB 06/06/25 06:00 06/06/25 18:40 Albuterol (Ventolin Medneb) 2.5 mg Q4HPRN PRN NEB SHORTNESS OF BREATH 06/06/25 02:15 06/06/25 18:40 Azithromycin 250 ml @ 125 mls/hr DAILY IV 06/07/25 10:00 UNV Methylprednisolone Sodium Succinate (Solu Medrol) 60 mg BID IV 06/06/25 22:00 06/06/25 21:10 Budesonide (Pulmicort) 0.5 mg BID NEB 06/06/25 10:00 06/06/25 06:42 Azithromycin 250 ml @ 125 mls/hr DAILY IV 06/07/25 04:00 Hydromorphone HCl (Dilaudid Injection) 0.25 mg Q4HPRN PRN IV SEVERE PAIN (7-10 PAIN SCALE) 06/06/25 04:15 06/06/25 20:32 Vital Signs Vital Signs Date Time Temp Pulse Resp B/P (MAP) Pulse Ox O2 Delivery O2 Flow Rate FiO2 06/06/25 20:32 86 18 115/75 06/06/25 18:46 100 06/06/25 18:40 Nasal Cannula 2.0 06/06/25 18:40 28 06/06/25 16:36 97.7 97.7 Physical Exam Gen.: Patient lying in bed in no apparent distress. On supplemental oxygen. Head: Normocephalic, atraumatic. Eyes: EOMI/PERRLA. Ears: Normal hearing. Normal anatomy. Neck/trachea: Trachea midline, supple. Nose: Normal external anatomy. Mouth: Moist mucous membranes. Chest: Decreased air entry bilaterally. No wheezing or rhonchi. Cardiovascular: Positive S1, positive S2. Regular rate and rhythm. Abdomen: Positive bowel sounds in all 4 quadrants. Soft, non-tender, non- distended. : Deferred. Rectal: Deferred. Skin: Warm, dry. Intact. Extremities: 2+ radial pulses bilaterally. No lower extremity edema. Neuro: Awake, alert, oriented x3. No gross motor or sensory deficits. Cranial nerves II through XII intact. Gait not assessed. Labs/Diagnostic Data Labs Test 06/06/25 08:00 06/06/25 03:56 06/06/25 02:00 06/05/25 23:28 Range/Units Urine Color Yellow Yellow Urine Clarity Clear Clear Urine pH 6.0 5.0-9.0 Urine Specific [place] 1.032 1.001-1.035 Urine Protein Trace H Negative Urine Ketones 1+ H Negative Urine Blood Negative Negative /uL Urine Nitrite Negative Negative Urine Bilirubin Negative Negative Urine Urobilinogen Normal Negative mg/dL Urine Leukocyte Esterase Negative Negative /uL Urine RBC 5 0 - 4 /hpf Urine Microscopic WBC 1 0-5 /HPF Urine Squamous Epithelial Cells Few <5 /hpf Urine Bacteria None seen None Seen /hpf Urine Mucus Few None Seen Urine Glucose Normal Normal mg/dL Influenza Type A Antigen Negative Negative Influenza Type B Antigen Negative Negative SARS-CoV-2 Antigen (Rapid) Negative NEGATIVE White Blood Count 13.1 H 4.4-10.8 10^3/uL Red Blood Count 4.46 4.0-5.20 10^6/uL Hemoglobin 12.5 12.2-16.2 g/dL Hematocrit 37.9 36.0-46.0 % Mean Corpuscular Volume 84.9 80.0-100.0 fL Mean Corpuscular Hemoglobin 28.1 28.0-32.0 pg Mean Corpuscular Hemoglobin Concent 33.1 32.0-36.0 g/dL Red Cell Distribution Width 15.7 H 11.8-14.3 % Platelet Count 307 140-450 10^3/uL Mean Platelet Volume 7.5 6.9-10.8 fL Neutrophils (%) (Auto) 64.2 37.0-80.0 % Lymphocytes (%) (Auto) 28.7 10.0-50.0 % Monocytes (%) (Auto) 6.6 0.0-12.0 % Eosinophils (%) (Auto) 0.2 0.0-7.0 % Basophils (%) (Auto) 0.3 0.0-2.0 % Neutrophils # (Auto) 8.4 1.6-8.6 10 ^3/uL Lymphocytes # (Auto) 3.8 0.4-5.4 10 ^3/uL Monocytes # (Auto) 0.9 0-1.3 10 ^3/uL Eosinophils # (Auto) 0 0-0.8 10 ^3/uL Basophils # (Auto) 0 0-0.2 10 ^3/uL Nucleated Red Blood Cells 0.1 % Sodium Level 142 136-145 mmol/L Potassium Level 3.8 3.5-5.1 mmol/L Chloride Level 106 98-107 mmol/L Carbon Dioxide Level 23 20-31 mmol/L Anion Gap 13 5-15 Blood Urea Nitrogen 11 9-23 mg/dL Creatinine 0.64 0.550-1.02 mg/dL Glomerular Filtration Rate Calc 112 >90 mL/min BUN/Creatinine Ratio 17.2 10.0-20.0 Serum Glucose 90 74-106 mg/dL Calcium Level 9.5 8.7-10.4 mg/dL Total Bilirubin 0.2 0.2-1.0 mg/dL Aspartate Amino Transferase (AST) 15 13-40 U/L Alanine Aminotransferase (ALT) 15 7-40 U/L Alkaline Phosphatase 88 46-116 U/L Total Protein 6.6 5.7-8.2 g/dL Albumin 4.3 3.2-4.8 g/dL Thyroid Stimulating Hormone (TSH) 0.94 0.55-4.78 uIU/mL Free Thyroxine (T4) Calculated 1.28 0.89-1.76 ng/dL Total Triiodothyronine (TT3) 0.91 0.60-1.81 ng/mL Troponin I High Sensitivity < 3 L </=34 ng/L Blood Gas Specimen Type Arterial Blood Gas Sample Site Left radial Blood Gas Patient Temperature 37.0 Arterial Blood Date Drawn [id number] Arterial Blood pH 7.530 H 7.350-7.450 Arterial Blood Partial Pressure CO2 27.9 L 32.0-45.0 mmHg Arterial Blood Partial Pressure O2 65.0 L 83.0-108.0 mmHg Arterial Blood HCO3 22.8 21.0-28.0 mmol/L Arterial Blood Oxygen Saturation 94.3 94.0-98.0 % Arterial Blood Base Excess 1.3 -2.0-3.0 mmol/L Arterial Blood Oxyhemoglobin 93.6 L 94.0-98.0 % Arterial Blood Carboxyhemoglobin 0.2 L 0.5-1.5 % Arterial Blood Methemoglobin 0.5 0.0-1.5 % Giacomo Test Modified Blood Gas Total Hemoglobin 14.30 12.0-16.0 g/dL Blood Gas Modality Vent - ac FiO2 % 50.0 Blood Gas EPAP 5 Blood Gas IPAP 12 Test 06/05/25 22:50 Range/Units B-Type Natriuretic Peptide 2.47 0-100 pg/mL Assessment Impression: Asthma exacerbation Acute hypoxic respiratory failure Vocal cord dysfunction Obesity, BMI 30 Plan: Supplemental oxygen Titrate to keep O2 sats above 92%. CXR from 06/05/25 reveals no acute disease. Continue bronchodilators. IV steroids Pain control Avoid oversedation Monitor renal function. Monitor electrolytes. Supplement as necessary. Monitor ins and outs. Recommend diet and lifestyle modifications for weight reduction Obesity complicates all care DVT prophylaxis. We will obtain records from [facility] for further evaluation. Prognosis: Poor given patient's multiple co-morbidities. Rest of plan per hospitalist and other consultants. Thank you, Dr. Engle, for allowing me to participate in this patient's care. Further recommendations will depend on the patient's clinical course. Please do not hesitate to contact me if you have any questions or concerns. This medical document was created using an electronic medical record system with [employer] dictation system. Although these documentations are being carefully reviewed, there may still be some phonetic and typographical changes. The errors are purely typographical, due to imperfection on the software program, and do not reflect any compromise in the patient's medical care. Plan discussed with: Patient, Other (CRISTHIAN Fernandez/) Visit Coding Pulmonary Billing Provider: TEN RIOS MD Date of Service if different f: Jun 06, 2025 Common Visit Codes: [id number] INP/OBS CARE (HIGH) TEN RIOS MD Jun 06, 2025 22:07
[2025-06-07] VITALS (12 sets, daily range): BP systolic 106–114; BP diastolic 67–77; PULSE 78–100; RESP 17–18; TEMP 97.5–98; O2SAT 96–99
[2025-06-07] MEDS: AZITHROMYCIN 500MG/ 250ML 250 ML IV SCH (04:14)
[2025-06-07 07:32] LABS: Hematocrit 39.3 % (36.0-46.0); Hemoglobin 12.9 g/dL (12.2-16.2); Mean Corpuscular Hemoglobin 28.2 pg (28.0-32.0); Mean Corpuscular Volume 85.8 fL (80.0-100.0); Nucleated Red Blood Cells % 0.0 %
[2025-06-07 07:46] LABS: Chloride 105 mmol/L (98-107); Potassium 4.0 mmol/L (3.5-5.1); Sodium 140 mmol/L (136-145)
[2025-06-07 07:47] LABS: Anion Gap 10 (5-15); Calcium 9.0 mg/dL (8.7-10.4); Carbon Dioxide 25 mmol/L (20-31)
[2025-06-07 07:52] LABS: BUN/Creatinine Ratio 15.7 (10.0-20.0); Blood Urea Nitrogen 11 mg/dL (9-23)
[2025-06-07 07:56] LABS: Glucose 130 mg/dL (74-106)
[2025-06-07] MEDS ORDERED: AZITHROMYCIN 500MG/ 250ML 250 ML IV SCH (10:00)
[2025-06-07] MEDS: OXYCODONE W/ ACETAMINOPHEN 5/325MG TABLET PO ONE (11:16)
[2025-06-07] MEDS ORDERED: PRED20TA2 PO (11:26)
[2025-06-07] MEDS ORDERED: AZIT500T66 PO (11:27)
[2025-06-07] MEDS ORDERED: OXYCODONE W/ ACETAMINOPHEN 5/325MG TABLET PO ONE (11:30)
[2025-06-07] MEDS ORDERED: predniSONE 20 MG TAB PO ONE (11:30)
--- NOTE | 2025-06-07 14:21 | DVHDSRES ---
Discharge Summary Date of Admission Resident Creating Document: MARKUS VALENZUELA RESIDENT Jun 06, 2025 at 02:11 Date of Discharge: Jun 07, 2025 Labs/Diagnostic Data: Laboratory Results Test 06/07/25 06:38 06/06/25 08:00 06/06/25 03:56 06/06/25 02:00 White Blood Count 12.8 10^3/uL (4.4-10.8) Red Blood Count 4.58 10^6/uL (4.0-5.20) Hemoglobin 12.9 g/dL (12.2-16.2) Hematocrit 39.3 % (36.0-46.0) Mean Corpuscular Volume 85.8 fL (80.0-100.0) Mean Corpuscular Hemoglobin 28.2 pg (28.0-32.0) Mean Corpuscular Hemoglobin Concent 32.8 g/dL (32.0-36.0) Red Cell Distribution Width 16.2 % (11.8-14.3) Platelet Count 285 10^3/uL (140-450) Mean Platelet Volume 7.8 fL (6.9-10.8) Neutrophils (%) (Auto) 85.1 % (37.0-80.0) Lymphocytes (%) (Auto) 11.2 % (10.0-50.0) Monocytes (%) (Auto) 3.6 % (0.0-12.0) Eosinophils (%) (Auto) 0.0 % (0.0-7.0) Basophils (%) (Auto) 0.1 % (0.0-2.0) Neutrophils # (Auto) 10.9 10 ^3/uL (1.6-8.6) Lymphocytes # (Auto) 1.4 10 ^3/uL (0.4-5.4) Monocytes # (Auto) 0.5 10 ^3/uL (0-1.3) Eosinophils # (Auto) 0 10 ^3/uL (0-0.8) Basophils # (Auto) 0 10 ^3/uL (0-0.2) Nucleated Red Blood Cells 0.0 % Sodium Level 140 mmol/L (136-145) Potassium Level 4.0 mmol/L (3.5-5.1) Chloride Level 105 mmol/L (98-107) Carbon Dioxide Level 25 mmol/L (20-31) Anion Gap 10 (5-15) Blood Urea Nitrogen 11 mg/dL (9-23) Creatinine 0.70 mg/dL (0.550-1.02) Glomerular Filtration Rate Calc 110 mL/min (>90) BUN/Creatinine Ratio 15.7 (10.0-20.0) Serum Glucose 130 mg/dL (74-106) Calcium Level 9.0 mg/dL (8.7-10.4) Urine Color Yellow (Yellow) Urine Clarity Clear (Clear) Urine pH 6.0 (5.0-9.0) Urine Specific [place] 1.032 (1.001-1.035) Urine Protein Trace (Negative) Urine Ketones 1+ (Negative) Urine Blood Negative /uL (Negative) Urine Nitrite Negative (Negative) Urine Bilirubin Negative (Negative) Urine Urobilinogen Normal mg/dL (Negative) Urine Leukocyte Esterase Negative /uL (Negative) Urine RBC 5 /hpf (0 - 4) Urine Microscopic WBC 1 /HPF (0-5) Urine Squamous Epithelial Cells Few /hpf (<5) Urine Bacteria None seen /hpf (None Seen) Urine Mucus Few (None Seen) Urine Glucose Normal mg/dL (Normal) Influenza Type A Antigen Negative (Negative) Influenza Type B Antigen Negative (Negative) SARS-CoV-2 Antigen (Rapid) Negative (NEGATIVE) Total Bilirubin 0.2 mg/dL (0.2-1.0) Aspartate Amino Transferase (AST) 15 U/L (13-40) Alanine Aminotransferase (ALT) 15 U/L (7-40) Alkaline Phosphatase 88 U/L (46-116) Total Protein 6.6 g/dL (5.7-8.2) Albumin 4.3 g/dL (3.2-4.8) Thyroid Stimulating Hormone (TSH) 0.94 uIU/mL (0.55-4.78) Free Thyroxine (T4) Calculated 1.28 ng/dL (0.89-1.76) Total Triiodothyronine (TT3) 0.91 ng/mL (0.60-1.81) Troponin I High Sensitivity < 3 ng/L (</=34) Test 06/05/25 23:28 06/05/25 22:50 Blood Gas Specimen Type Arterial Blood Gas Sample Site Left radial Blood Gas Patient Temperature 37.0 Arterial Blood Date Drawn Arterial Blood pH 7.530 (7.350-7.450) Arterial Blood Partial Pressure CO2 27.9 mmHg (32.0-45.0) Arterial Blood Partial Pressure O2 65.0 mmHg (83.0-108.0) Arterial Blood HCO3 22.8 mmol/L (21.0-28.0) Arterial Blood Oxygen Saturation 94.3 % (94.0-98.0) Arterial Blood Base Excess 1.3 mmol/L (-2.0-3.0) Arterial Blood Oxyhemoglobin 93.6 % (94.0-98.0) Arterial Blood Carboxyhemoglobin 0.2 % (0.5-1.5) Arterial Blood Methemoglobin 0.5 % (0.0-1.5) Giacomo Test Modified Blood Gas Total Hemoglobin 14.30 g/dL (12.0-16.0) Blood Gas Modality Vent - ac FiO2 % 50.0 Blood Gas EPAP 5 Blood Gas IPAP 12 B-Type Natriuretic Peptide 2.47 pg/mL (0-100) Other Laboratory Tests 06/07/25 06:38 Brief Hx & Hospital Course: Brief history on admission and hospital course: This is a 44-year-old female with past medical history of recurrent asthma exacerbations ( most recent hospitalization on 05/28/2025 and discharged on 05/30/2025 for the same reason), Koki's disease, spinal bifida, osteoporosis came in with a chief complaint of shortness of breaths / asthma exacerbation after mom use the cleaning product to mop the floor. Patient reports that she tried med nebulizations but it did not help which prompted her to call 911 and come to the ER. she also reports that she met specialist yesterday who prescribed her new medications, the names of which she can not remember but due to insurance problem she was not able to get them. Patient has past history of vocal cord dysfunction due to repeated intubations, she has been recommended Botox injections, which she has not followed through. For her Koki's disease she takes no medication and has an appointment with an millwork estimator in [place] next month. Patient has visited ED several times for respiratory distress due to Asthma. She was placed on CPAP en route to ED and given epi. Patient denies any chest pain, headache, dizziness, fever, chills, nausea, vomiting, abdominal pain or any other modifying factors and symptoms. On admission her WBC is at 13.9 and rest of the labs are normal. Vitals are stable. BNP is 2.47, troponin negative. ABG shows respiratory alkalosis. patient was started on med neb treatment, azithromycin, methylprednisolone 60 mg IV b.i.d., nightly BiPAP. Pulmonology was consulted. IV steroids switch to oral, patient has clinically doing better, vitals are stable. Patient's WBC count high likely secondary to high dose steroids related neutrophilic demargination. Patient is being discharged on oral steroids we will continue follow-up outpatient as below. Conditions treated during stay: Acute hypoxic respiratory failure secondary to acute exacerbation of asthma Vocal cord dysfunction Chronic pain syndrome Supportive management with pain medications, Zofran Koki's thyroiditis Osteoporosis Obesity, BMI 31 Discharge plan: Follow-up with PCP in 1 week Follow-up with pulmonology as outpatient Follow up outpatient with the millwork estimator as per appointment Consults/Reason for consult Pulmonology on board, recommend IV steroids, monitor electrolytes. Operations or Procedures CHEST RADIOGRAPH Indication: cp Technique: Single frontal view of the chest was obtained COMPARISON: XY CHEST PORTABLE on DOS: 05/28/25, XY CHEST PORTABLE on DOS: 04/20/25, XY CHEST PORTABLE on DOS: 04/12/25, XY CHEST XRAY 1 VIEW on DOS: 04/02/25, XY CHEST TWO VIEWS ROUTINE on DOS: 03/26/25 FINDINGS: Lines and Tubes: None Lungs: Clear Pleura: No effusion. No pneumothorax. Cardiomediastinal contours: Unremarkable Bones: Unremarkable IMPRESSION: 1. No acute disease. Condition at Discharge: Stable Final Diagnosis/Problems List Acute hypoxic respiratory failure secondary to acute exacerbation of asthma Vocal cord dysfunction Chronic pain syndrome Koki's thyroiditis Osteoporosis Obesity, BMI 31 Discharge Disposition: Home Discharge Instruct/Medications Diet: Regular Activity: No Restrictions, As Tolerated Follow Up/Referral: Follow up with PCP in one week Follow up in pulmonology clinic as outpatient Medications: As per EHR New Medications: Azithromycin (Azithromycin) 500 Mg Tab 1 TAB PO DAILY for 3 Days, #3 TAB Prednisone (Prednisone) 20 Mg Tab 40 MG PO DAILY for 5 Days, #10 MG Scheduled Azithromycin (Zithromax Tablet), 250 MG PO DAILY Azithromycin (Zithromax Z-Lonnie), 250 MG PO DAILY Azithromycin (Azithromycin), 1 TAB PO DAILY Cholecalciferol (Vitamin D3), 5,000 UNIT OR QWEEKLY, (Reported) Cyclobenzaprine Hcl (Cyclobenzaprine Hcl), 5 MG PO BID, (Reported) Docusate Sodium (Colace), 100 MG PO DAILY, (Reported) Ferrous Sulfate (Ferosul), 325 PO DAILY, (Reported) Methylprednisolone (Medrol Dosepak), 4 MG PO UD Montelukast Sodium (Montelukast Sodium), 1 TAB PO DAILY, (Reported) Prednisone (Prednisone), 20 MG PO DAILY Prednisone (Prednisone), 40 MG PO DAILY Scheduled PRN Albuterol Sulfate (Ventolin), 2.5 MG NEB Q4HPRN PRN Gabapentin (Gabapentin), 300 MG PO BID PRN for NEUROPATHRY LEG PAIN, (Reported) Oxycodone W/ Acetaminophen (Apap/Oxycodone), 1 TAB PO QID PRN for BACK PAIN,, (Reported) Discharge Statement: "Patient was advised to return to the ER or call 911 if any headaches, dizziness, shortness of breath, chest pain, abdominal pain, bleeding, fevers, or worsening of medical condition. Patient was counseled about treatment plan, medications, possible side effects, patientverbalized understanding. All questions were answered to the best of my ability. This discharge took greater then 30 minutes in planning, reviewing documentation, counseling the patient, and discussing with other team members." ASSESSMENT ASSESSMENT Assessment Acute hypoxic respiratory failure secondary to acute exacerbation of asthma Vocal cord dysfunction Chronic pain syndrome Koki's thyroiditis Osteoporosis Obesity, BMI 31 Date of Service: Jun 07, 2025 Billing Provider: HELADIO BILL MD Common Visit Codes: 57903-DYF/OBS DISCH DAY >30min MARKUS VALENZUELA RESIDENT Jun 07, 2025 14:21
--- NOTE | 2025-06-07 22:31 | DVHPN2 ---
Subjective DOS: 06/07/2025 Patient seen and examined at bedside. Breathing comfortably on room air Overnight events reviewed. Changes from previous H/P or p: No Changes Eyes: No Pain, No Vision change, No Conjunctivae inflammation, No Eyelid inflammation, No Other, No Redness ENT: No Ear pain, No Ear discharge, No Nose pain, No Nose discharge, No Nose congestion, No Mouth pain, No Mouth swelling, No Throat pain, No Throat swelling, No Other Cardiovascular: No Chest Pain, No Palpitations, No Orthopnea, No Paroxysmal Noc. Dyspnea, No Edema, No Lt Headedness, No Other Respiratory: No Cough, No Dry; Shortness of breath, SOB with excertion; No Wheezing, No Hemoptysis, No Pleuritic Pain, No Sputum, No Other Gastrointestinal: No Nausea, No Vomiting, No Abdominal Pain, No Diarrhea, No Constipation, No Melena, No Hematochezia, No Other Genitourinary: No Dysuria, No Frequency, No Incontinence, No Hematuria, No Retention, No Other Musculoskeletal: No other, No neck pain, No shoulder pain, No arm pain, No back pain, No hand pain, No leg pain, No foot pain Skin: No Rash, No Lesions, No Jaundice, No Bruising, No Other Objective Vitals Vital Signs Date Time Temp Pulse Resp B/P (MAP) Pulse Ox O2 Delivery O2 Flow Rate FiO2 06/07/25 14:03 93 18 99 06/07/25 13:00 97.9 109/77 (88) 97.9 06/07/25 10:43 Room Air 06/07/25 10:43 0 21 Intake/Output Intake and Output 06/07/25 07:00 Intake Total 0 ml Balance 0 ml Intake Oral 0 ml # Voids 2 Exam Gen.: Patient lying in bed in no apparent distress. On room air. Head: Normocephalic, atraumatic. Eyes: EOMI/PERRLA. Ears: Normal hearing. Normal anatomy. Neck/trachea: Trachea midline, supple. Nose: Normal external anatomy. Mouth: Moist mucous membranes. Chest: Decreased air entry bilaterally. Wheezing, improving. No rhonchi. Cardiovascular: Positive S1, positive S2. Regular rate and rhythm. Abdomen: Positive bowel sounds in all 4 quadrants. Soft, non-tender, non- distended. : Deferred. Rectal: Deferred. Skin: Warm, dry. Intact. Extremities: 2+ radial pulses bilaterally. No lower extremity edema. Neuro: Awake, alert, oriented x3. No gross motor or sensory deficits. Cranial nerves II through XII intact. Gait not assessed. Medications Current Medications Medications Dose Ordered Sig/Jessica Route Start Time Stop Time Status Last Admin Dose Admin Azithromycin 250 ml @ 125 mls/hr DAILY IV 06/07/25 10:00 UNV Laboratory Results Laboratory Tests 06/07/25 06:38 Chemistry Test 06/07/25 06:38 Calcium Level 9.0 mg/dL (8.7-10.4) Urinalysis Test 06/06/25 08:00 Urine Color Yellow (Yellow) Urine Clarity Clear (Clear) Urine pH 6.0 (5.0-9.0) Urine Specific [place] 1.032 (1.001-1.035) Urine Protein Trace (Negative) H Urine Ketones 1+ (Negative) H Urine Blood Negative /uL (Negative) Urine Nitrite Negative (Negative) Urine Bilirubin Negative (Negative) Urine Urobilinogen Normal mg/dL (Negative) Urine Leukocyte Esterase Negative /uL (Negative) Urine RBC 5 /hpf (0 - 4) Urine Microscopic WBC 1 /HPF (0-5) Urine Squamous Epithelial Cells Few /hpf (<5) Urine Bacteria None seen /hpf (None Seen) Urine Mucus Few (None Seen) Urine Glucose Normal mg/dL (Normal) Microbiology Microbiology Date/Time Source Procedure Growth Status 06/06/25 10:30 Sputum Gram Stain - Final Resulted 06/06/25 10:30 Sputum Respiratory Culture - Preliminary Resulted Assessment/Plan Assessment/Plan Impression: Asthma exacerbation Acute hypoxic respiratory failure Vocal cord dysfunction Obesity, BMI 30 Events: Improved O2 requirements Breathing on room air No distress Continue bronchodilators Continue steroids Wheezing improving. Obtained and reviewed records from [facility]. Labs and imaging reviewed. Rest of plan as noted below. Plan: Supplemental oxygen PRN Titrate to keep O2 sats above 92%. CXR from 06/05/25 reveals no acute disease. Continue bronchodilators. IV steroids Pain control Avoid oversedation Monitor renal function. Monitor electrolytes. Supplement as necessary. Monitor ins and outs. Recommend diet and lifestyle modifications for weight reduction Obesity complicates all care DVT prophylaxis. Prognosis: Poor given patient's multiple co-morbidities. Rest of plan per hospitalist and other consultants. Thank you, Dr. Engle, for allowing me to participate in this patient's care. Further recommendations will depend on the patient's clinical course. Please do not hesitate to contact me if you have any questions or concerns. This medical document was created using an electronic medical record system with [employer] dictation system. Although these documentations are being carefully reviewed, there may still be some phonetic and typographical changes. The errors are purely typographical, due to imperfection on the software program, and do not reflect any compromise in the patient's medical care. Plan discussed with: Patient, Other (RN) Visit Coding Pulmonary Billing Provider: TEN RIOS MD Date of Service if different f: Jun 07, 2025 Common Visit Codes: [id number] INP/OBS CARE(HIGH) TEN RIOS MD Jun 07, 2025 22:31
[2025-06-08] MEDS ORDERED: AZITHROMYCIN 500MG/ 250ML 250 ML IV SCH (10:00)
== END 2025-06-07 15:06 | disposition home or self-care (01) | DRG 133 ==
LOC: EDUNIT# 21:54 → EDBD 21:54 → ER 21:58 → OVERFLOW 06-06 02:11 → TELE-WESTW 06-06 15:49
PROVIDERS: ADMIT Internal Medicine Geriatric Medicine; ATTEND Internal Medicine Geriatric Medicine
PROC: 5A09357 Assistance with Respiratory Ventilation, Less than 24 Consecutive Hours, Continuous Positive Airway Pressure (ICD-10-PCS; principal; 2025-06-05)
PROC: 5A09357 Assistance with Respiratory Ventilation, Less than 24 Consecutive Hours, Continuous Positive Airway Pressure (ICD-10-PCS; 2025-06-06)
DX: J96.01 Acute respiratory failure with hypoxia (principal); E87.3 Alkalosis; J45.901 Unspecified asthma with (acute) exacerbation; Z20.822 Contact with and (suspected) exposure to COVID-19; M81.0 Age-related osteoporosis without current pathological fracture; J38.3 Other diseases of vocal cords; E66.9 Obesity, unspecified; G89.4 Chronic pain syndrome; Z90.49 Acquired absence of other specified parts of digestive tract; Z82.3 Family history of stroke; Z83.3 Family history of diabetes mellitus; Z82.5 Family history of asthma and other chronic lower respiratory diseases; Z82.49 Family history of ischemic heart disease and other diseases of the circulatory system; Z68.31 Body mass index [BMI] 31.0-31.9, adult; Z80.8 Family history of malignant neoplasm of other organs or systems
CPT/HCPCS: 36415; 36600; 71045; 80048; 80053; 81001; 82805; 83880; 84439; 84443; 84480; 84484; 85025; 87070; 87077; 87186; 87205; 87426; 87804; 93005; 94640; G0378

== ENCOUNTER 2025-07-03 15:18 | Inpatient (IN) | payer MEDICAID ==
[~2025-07-03] VITALS: Ht 170.2 cm; Wt 90.1 kg
[2025-07-03] VITALS (10 sets, daily range): BP systolic 109–113; BP diastolic 61–84; PULSE 113–132; RESP 18–29; TEMP 97.8; O2SAT 97–100
[~2025-07-03 15:18] MED LIST changes: +AZIT500T66 PO
[2025-07-03] MEDS: MIDAZOLAM HCL 2MG/2ML 2ml VIAL (1mg/ml) IM ONE (15:25)
--- NOTE | 2025-07-03 15:28 | ED.PDOC ---
SOB-HPI HPI Comments This is a 44 year old female ANNIA presenting to the ED with chief complaint of SOB. EMS reports patient started to experience a severe asthma exacerbation episode a few hours ago. EMS relays that the patient was given a DuoNeb treatment and 0.3mg of Epinephrine with little relief noted. EM notes patient was then placed on CPAP maxed out. EMS states patient has history of intubations in the past due to her condition. Patient denies any chest pain, syncope, N/V, or any further symptoms. 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 GREASER History: Denies all ROD GREASER Hx Family History Family History: Reviewed,noncontributory to illness, Unknown Social History Smoker: Non-Smoker Alcohol: Denies ETOH Use Drugs: Denies Drug Use Lives In: Home Constitutional: denies: chills, diaphoresis, fatigue, fever, malaise, sweats, weakness, others EENTM: denies: blurred vision, double vision, ear bleeding, ear discharge, ear drainage, ear pain, ear ringing, eye pain, eye redness, hearing loss, mouth pain, mouth swelling, nasal discharge, nose bleeding, nose congestion, nose pain, photophobia, tearing, throat pain, throat swelling, voice changes, others Respiratory: reports: shortness of breath; denies: cough, hemoptysis, orthopnea, SOB at rest, SOB with excertion, stridor, wheezing, others Cardiovascular: denies: chest pain, dizzy spells, diaphoresis, Dyspnea on exertion, edema, irregular heart beat, left arm pain, lightheadedness, palpitations, PND, syncope, others Gastrointestinal: denies: abdomen distended, abdominal pain, blood streaked bowels, constipated, diarrhea, dysphagia, difficulty swallowing, hematemesis, melena, nausea, poor appetite, poor fluid intake, rectal bleeding, rectal pain, vomiting, others Genitourinary: denies: abnormal vagina bleeding, burning, dyspareunia, dysuria, flank pain, frequency, hematuria, incontinence, pain, , vagina discharge, urgency, others Neurological: denies: dizziness, fainting, headache, left sided numbness, left sided weakness, numbness, paresthesia, pre-existing deficit, right sided numbness, right sided weakness, seizure, speech problems, tingling, tremors, weakness, others Musculoskeletal: denies: back pain, gout, joint pain, joint swelling, muscle pain, muscle stiffness, neck pain, others Integumetry: denies: bruises, change in color, change in hair/nails, dryness, laceration, lesions, lumps, rash, wounds, others Allergic/Immunocompromised: denies: Difficulty Healing, Frequent Infections, Hives, Itching, others Hematologic/Lymphatic: denies: anemia, blood clots, easy bleeding, easy bruising, swollen glands, others Endocrine: denies: excessive hunger, excessive sweating, excessive thirst, excessive urination, flushing, intolerance to cold, intolerance to heat, unexplained weight gain, unexplained weight loss, others Psychiatric: denies: anxiety, bipolar disorder, depression, hopeless, panic disorder, schizophrenia, sleepless, suicidal, others All Other Systems: Reviewed and Negative Physical Exam General Appearance: No Apparent Distress, Normal HEENT: Normal ENT Inspection, Pharynx Normal, TMs Normal Neck: Full Range of Motion, Non-Tender, Normal, Normal Inspection Respiratory: Chest Non-Tender, Lungs Clear, Respiratory Distress, Wheezing (Bilaterally), Other (Tachypneic, CPAP in place.) Cardiovascular: No Edema, No JVD, No Murmur, No Gallop, Normal Peripheral Pulses, Regular Rate/Rhythm Breast Exam: Deferred Gastrointestinal: No Organomegaly, Non Tender, No Pulsatile Mass, Normal Bowel Sounds, Soft Genitalia: Deferred Pelvic: Deferred Rectal: Deferred Extremities: No calf tenderness, Normal capillary refill, Normal inspection, Normal range of motion, Non-tender, No pedal edema Musculoskeletal : Apperance: Normal Neurologic: Alert, 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 Was a procedure done?: No Differential Dx Differential Diagnosis: Asthma, Pneumonia, Respiratory Distress X-Ray, Labs, Meds, VS Vital Signs Date Time Temp Pulse Resp B/P (MAP) Pulse Ox O2 Delivery O2 Flow Rate FiO2 07/03/25 20:00 117 07/03/25 19:31 97.8 113 18 113/61 (78) 97 97.8 07/03/25 19:30 113 18 97 Nasal Cannula* 2 28 07/03/25 19:15 99 Nasal Cannula 2.0 07/03/25 19:14 99 Nasal Cannula* 2 28 07/03/25 18:12 97.4 126 23 120/70 (87) 100 97.4 07/03/25 15:54 132 117/81 Nasal BiPAP Mask 30 07/03/25 15:32 132 29 100 Bi-Pap+ 30 30 07/03/25 15:32 98.0 132 29 117/81 (93) 100 98.0 07/03/25 15:28 98.2 150 30 121/70 96 98.2 07/03/25 15:28 133 Lab Test 07/03/25 19:14 07/03/25 16:53 Range/Units White Blood Count 11.0 H 4.4-10.8 10^3/uL Red Blood Count 4.47 4.0-5.20 10^6/uL Hemoglobin 12.5 12.2-16.2 g/dL Hematocrit 38.4 36.0-46.0 % Mean Corpuscular Volume 85.9 80.0-100.0 fL Mean Corpuscular Hemoglobin 28.0 28.0-32.0 pg Mean Corpuscular Hemoglobin Concent 32.6 32.0-36.0 g/dL Red Cell Distribution Width 14.7 H 11.8-14.3 % Platelet Count 318 140-450 10^3/uL Mean Platelet Volume 7.2 6.9-10.8 fL Neutrophils (%) (Auto) 93.3 H 37.0-80.0 % Lymphocytes (%) (Auto) 4.9 L 10.0-50.0 % Monocytes (%) (Auto) 1.7 0.0-12.0 % Eosinophils (%) (Auto) 0.0 0.0-7.0 % Basophils (%) (Auto) 0.1 0.0-2.0 % Neutrophils # (Auto) 10.3 H 1.6-8.6 10 ^3/uL Lymphocytes # (Auto) 0.5 0.4-5.4 10 ^3/uL Monocytes # (Auto) 0.2 0-1.3 10 ^3/uL Eosinophils # (Auto) 0 0-0.8 10 ^3/uL Basophils # (Auto) 0 0-0.2 10 ^3/uL Nucleated Red Blood Cells 0.0 % Sodium Level 143 136-145 mmol/L Potassium Level 2.9 L 3.5-5.1 mmol/L Chloride Level 106 98-107 mmol/L Carbon Dioxide Level 22 20-31 mmol/L Anion Gap 15 5-15 Blood Urea Nitrogen 9 9-23 mg/dL Creatinine 0.89 0.550-1.02 mg/dL Glomerular Filtration Rate Calc 82 >90 mL/min BUN/Creatinine Ratio 10.1 10.0-20.0 Serum Glucose 161 H 74-106 mg/dL Calcium Level 9.2 8.7-10.4 mg/dL Troponin I High Sensitivity < 3 L </=34 ng/L Blood Gas Specimen Type Arterial Blood Gas Sample Site Left radial Blood Gas Patient Temperature 37.0 Arterial Blood Date Drawn [id number] Arterial Blood pH 7.418 7.350-7.450 Arterial Blood Partial Pressure CO2 34.5 32.0-45.0 mmHg Arterial Blood Partial Pressure O2 84.3 83.0-108.0 mmHg Arterial Blood HCO3 21.8 21.0-28.0 mmol/L Arterial Blood Oxygen Saturation 97.9 94.0-98.0 % Arterial Blood Base Excess -2.1 L -2.0-3.0 mmol/L Arterial Blood Oxyhemoglobin 96.7 94.0-98.0 % Arterial Blood Carboxyhemoglobin 0.7 0.5-1.5 % Arterial Blood Methemoglobin 0.5 0.0-1.5 % Giacomo Test Yes Blood Gas Total Hemoglobin 13.10 12.0-16.0 g/dL Blood Gas Set Respiration Rate 12.0 Blood Gas Modality Mask - bipap FiO2 % 30.0 Blood Gas EPAP 5 Blood Gas IPAP 12 Current Medications Medications (Trade) Dose Ordered Sig/Jessica Route Start Time Stop Time Status Last Admin Magnesium Sulfate/ Dextrose 100 ml @ 100 mls/hr ONCE ONCE IV 07/03/25 15:30 07/03/25 16:29 DC 07/03/25 17:01 Methylprednisolone Sodium Succinate (Solu Medrol) 125 mg ONCE ONCE IM 07/03/25 15:30 07/03/25 15:31 DC 07/03/25 15:57 Midazolam HCl (Versed Injection) 2 mg ONCE ONCE IM 07/03/25 15:45 07/03/25 15:46 DC 07/03/25 15:25 Ketorolac Tromethamine (Toradol Injection) 30 mg ONCE ONCE IV 07/03/25 17:30 07/03/25 17:31 DC 07/03/25 18:06 Sodium Chloride 1,000 ml @ 1,000 mls/hr Q1H ONCE IV 07/03/25 20:30 07/03/25 21:29 DC 07/03/25 20:42 Potassium Bicarbonate (Klor-Con/Ef) 50 meq ONCE ONCE PO 07/03/25 20:30 07/03/25 20:39 DC 07/03/25 20:46 X-Ray, Labs, Meds, VS Comment Patient will be admitted for tachycardia Upon secondary assessment, patient states she has had episodes of tachycardia in the past, states she has never seen Cardiology. Says she does remember ap pointment where they threatened she they may need to shock her to get her heart back into rhythm. States never got to that point. Can not remember the last time she had to be cardioverted. Patient's breathing is under control, patient is on room air, patient has been given 1 L fluids with mild improvement from her tachycardia. With a initially at 155 upon arrival, patient now sitting at. Patient states she can feel her heart racing, and feels shortness of breath with exertion Time of 1ST Reevaluation: 16:22 Reevaluation 1ST: Improved Patient Education/Counseling: Diagnosis, Treatment Family Education/Counseling: No Family Present SEPSIS Sepsis Screen Physician Orders Chest Xray 1 View (07/03/25 15:26) Electrocardigram (07/03/25 15:35) BIPAP (07/03/25 15:34) Abg W/ Co-Ox (07/03/25 15:34) Insert Midline (07/03/25 17:00) Vital Signs Date Time Temp Pulse Resp B/P (MAP) Pulse Ox O2 Delivery O2 Flow Rate FiO2 07/03/25 20:00 117 07/03/25 19:31 97.8 113 18 113/61 (78) 97 97.8 07/03/25 19:30 113 18 97 Nasal Cannula* 2 28 07/03/25 19:15 99 Nasal Cannula 2.0 07/03/25 19:14 99 Nasal Cannula* 2 28 07/03/25 18:12 97.4 126 23 120/70 (87) 100 97.4 07/03/25 15:54 132 117/81 Nasal BiPAP Mask 30 07/03/25 15:32 132 29 100 Bi-Pap+ 30 30 07/03/25 15:32 98.0 132 29 117/81 (93) 100 98.0 07/03/25 15:28 98.2 150 30 121/70 96 98.2 07/03/25 15:28 133 Laboratory Tests Test 07/03/25 19:14 White Blood Count 11.0 10^3/uL (4.4-10.8) H Medications Medications Dose Ordered Sig/Jessica Route Start Time Stop Time Status Last Admin Dose Admin Ketorolac Tromethamine 30 mg ONCE ONCE IV 07/03/25 17:30 07/03/25 17:31 DC 07/03/25 18:06 Magnesium Sulfate/ Dextrose 100 ml @ 100 mls/hr ONCE ONCE IV 07/03/25 15:30 07/03/25 16:29 DC 07/03/25 17:01 Methylprednisolone Sodium Succinate 125 mg ONCE ONCE IM 07/03/25 15:30 07/03/25 15:31 DC 07/03/25 15:57 Midazolam HCl 2 mg ONCE ONCE IM 07/03/25 15:45 07/03/25 15:46 DC 07/03/25 15:25 Potassium Bicarbonate 50 meq ONCE ONCE PO 07/03/25 20:30 07/03/25 20:39 DC 07/03/25 20:46 Sodium Chloride 1,000 ml @ 1,000 mls/hr Q1H ONCE IV 07/03/25 20:30 07/03/25 21:29 DC 07/03/25 20:42 Departure 1 Departure Time of Disposition: 22:06 Impression: Primary Impression: Acute asthma exacerbation Qualified Codes: J45.51 - Severe persistent asthma with (acute) exacerbation Additional Impressions: Hypokalemia Tachycardia Disposition: 09 ADMITTED INPATIENT Condition: Stable Discharged With: Self Critical Care Note Critical Care Time?: No Stability Stability form required: No Heart Score Heart Score: Heart Score Response (Comments) Value History N/A 0 EKG N/A 0 Age N/A 0 Risk Factors N/A 0 Troponin N/A 0 Total 0 I personally scribed for MAGNUS ORELLANA ([email or web address]) on 07/03/25 at 15:28. Electronically submitted by Juan Carlos Funk ([email or web address]). MAGNUS ORELLANA Jul 03, 2025 15:28
[2025-07-03] MEDS: methylPREDNISolone SOD SUCC 125 MG/2 ML VL IM ONE (15:57)
--- NOTE | 2025-07-03 16:56 | DVH ---
CHEST RADIOGRAPH Indication: sob Technique: Single frontal view of the chest was obtained COMPARISON: XY CHEST XRAY 1 VIEW on DOS: 06/05/25, XY CHEST PORTABLE on DOS: 05/28/25, XY CHEST PORTABLE on DOS: 04/20/25, XY CHEST PORTABLE on DOS: 04/12/25, XY CHEST XRAY 1 VIEW on DOS: 04/02/25 FINDINGS: Lungs and pleural spaces are clear. Cardiac silhouette and claribel are within normal limits. Bones and soft tissues demonstrate no significant abnormality. IMPRESSION: No acute disease.
[2025-07-03 16:57] LABS: Base Excess -2.1 mmol/L (-2.0-3.0)
[2025-07-03] MEDS: MAGNESIUM SULFATE 1GM/100ML 100 ML IV ONE (17:01)
--- NOTE | 2025-07-03 17:40 | ECG ---
[facility] Test Date: 2025-07-03 Test Time: 15:28:17 Pat Name: ALMA WAGGONER Department: ED Room: Gender: F Video Journalist: ER : 1980 Requested By: MAGNUS TELLEZ* Order Number: [id number] Reading MD: Shantanu Buitrago Measurements Intervals [place] Rate: 133 P: 86 OK: 143 QRS: 0 QRSD: 90 T: 63 QT: 383 QTc: 570 Interpretive Statements Sinus tachycardia Minimal ST depression, anterolateral leads Prolonged QT interval Baseline wander in lead(s) II,III,aVR,aVF,V2,V4,V5 Electronically Signed On 07-03-2025 18:55:41 PST by Shantanu Buitrago Please click the below link to view image of tracing.
[2025-07-03] MEDS: KETOROLAC TROMETH 30 MG/ML 1ML VIAL IV ONE (18:06)
[2025-07-03 19:38] LABS: Hematocrit 38.4 % (36.0-46.0); Hemoglobin 12.5 g/dL (12.2-16.2); Mean Corpuscular Hemoglobin 28.0 pg (28.0-32.0); Mean Corpuscular Volume 85.9 fL (80.0-100.0); Nucleated Red Blood Cells % 0.0 %
[2025-07-03 19:49] LABS: Chloride 106 mmol/L (98-107); Sodium 143 mmol/L (136-145)
[2025-07-03 19:50] LABS: Anion Gap 15 (5-15); Carbon Dioxide 22 mmol/L (20-31)
[2025-07-03 19:51] LABS: Calcium 9.2 mg/dL (8.7-10.4)
[2025-07-03 19:55] LABS: BUN/Creatinine Ratio 10.1 (10.0-20.0); Blood Urea Nitrogen 9 mg/dL (9-23)
[2025-07-03 19:57] LABS: Glucose 161 mg/dL (74-106); Potassium 2.9 mmol/L (3.5-5.1)
[2025-07-03] MEDS: SODIUM CHLORIDE 0.9% 1,000 ML IV ONE (20:42)
[2025-07-03] MEDS: POTASSIUM EFFERVESENT TAB 25 MEQ PO ONE (20:46)
[2025-07-03] MEDS ORDERED: ACETAMINOPHEN 325 MG TAB PO PRN (23:00)
[2025-07-03] MEDS: ALBUTEROL SULF 2.5 MG/0.5ML(0.5%) NEB SOLN NEB ONE (23:00)
[2025-07-03] MEDS ORDERED: NITROGLYCERIN 0.4 MG SL TAB SL PRN (23:00)
[2025-07-03] MEDS ORDERED: ONDANSETRON HCL 4 MG/2 ML VIAL IV PRN (23:00)
--- NOTE | 2025-07-03 23:00 | DVHHP2 ---
History of Present Illness Reason for Visit: Shortness for breath History of Present Illness 44-year-old female presents for evaluation of shortness for breath. Patient reports a one day history of severe shortness for breath with wheezing. Patient used her med nebs and nebulizer at home without relief of the symptoms. No ch est pain or palpitations. Past Medical History Asthma, COPD, thyroid, anxiety, anemia Past Surgical History Cholecystectomy, , tonsillectomy, appendectomy Family History Noncontributory Smoke: No ALCOHOL: none Drugs: None Lives: with Family Review of Systems Review of Systems Review of systems are currently negative otherwise addressed in HPI. Allergies: Coded Allergies: Ibuprofen (Verified Allergy, Unknown, 04/25/23) Levothyroxine (Verified Allergy, Unknown, 04/25/23) Exam Vital Signs Vital Signs Date Time Temp Pulse Resp B/P (MAP) Pulse Ox O2 Delivery O2 Flow Rate FiO2 07/03/25 22:24 97.8 113 18 113/61 97 2.0 28 97.8 07/03/25 19:30 Nasal Cannula* Exam Gen: 44-year-old female in mild distress Skin: Warm, dry, normal color and texture, no rash. HEENT: Normocephalic atraumatic, mucous membranes moist and pink. Neck: Cervical and supraclavicular nodes normal without enlargement, trachea is midline, thyroid gland is normal without masses. Pulmonary: Clear to auscultation and percussion bilaterally. Cardiac: Sinus tachycardia Abdomen: Soft, nontender, nondistended, bowel sounds present all 4 quadrants, no guarding, no rigidity, no organomegaly. Extremities: No cyanosis, clubbing, no edema Neuro: Cranial nerves II through XII grossly intact, normal affect and speech, no focal motor deficits. Labs/Xrays ORDERING PHYSICIAN: MAGNUS ORELLANA PROCEDURE(s): CXR1 - CHEST XRAY 1 VIEW REASON: sob ORDER NUMBER(s): [id number], ACCESSION NUMBER(s): [id number] CHEST RADIOGRAPH Indication: sob Technique: Single frontal view of the chest was obtained COMPARISON: XY CHEST XRAY 1 VIEW on DOS: 06/05/25, XY CHEST PORTABLE on DOS: 05/28/25, XY CHEST PORTABLE on DOS: 04/20/25, XY CHEST PORTABLE on DOS: 04/12/25, XY CHEST XRAY 1 VIEW on DOS: 04/02/25 FINDINGS: Lungs and pleural spaces are clear. Cardiac silhouette and claribel are within normal limits. Bones and soft tissues demonstrate no significant abnormality. IMPRESSION: No acute disease. Labs Test 07/03/25 19:14 07/03/25 16:53 Range/Units White Blood Count 11.0 H 4.4-10.8 10^3/uL Red Blood Count 4.47 4.0-5.20 10^6/uL Hemoglobin 12.5 12.2-16.2 g/dL Hematocrit 38.4 36.0-46.0 % Mean Corpuscular Volume 85.9 80.0-100.0 fL Mean Corpuscular Hemoglobin 28.0 28.0-32.0 pg Mean Corpuscular Hemoglobin Concent 32.6 32.0-36.0 g/dL Red Cell Distribution Width 14.7 H 11.8-14.3 % Platelet Count 318 140-450 10^3/uL Mean Platelet Volume 7.2 6.9-10.8 fL Neutrophils (%) (Auto) 93.3 H 37.0-80.0 % Lymphocytes (%) (Auto) 4.9 L 10.0-50.0 % Monocytes (%) (Auto) 1.7 0.0-12.0 % Eosinophils (%) (Auto) 0.0 0.0-7.0 % Basophils (%) (Auto) 0.1 0.0-2.0 % Neutrophils # (Auto) 10.3 H 1.6-8.6 10 ^3/uL Lymphocytes # (Auto) 0.5 0.4-5.4 10 ^3/uL Monocytes # (Auto) 0.2 0-1.3 10 ^3/uL Eosinophils # (Auto) 0 0-0.8 10 ^3/uL Basophils # (Auto) 0 0-0.2 10 ^3/uL Nucleated Red Blood Cells 0.0 % Sodium Level 143 136-145 mmol/L Potassium Level 2.9 L 3.5-5.1 mmol/L Chloride Level 106 98-107 mmol/L Carbon Dioxide Level 22 20-31 mmol/L Anion Gap 15 5-15 Blood Urea Nitrogen 9 9-23 mg/dL Creatinine 0.89 0.550-1.02 mg/dL Glomerular Filtration Rate Calc 82 >90 mL/min BUN/Creatinine Ratio 10.1 10.0-20.0 Serum Glucose 161 H 74-106 mg/dL Calcium Level 9.2 8.7-10.4 mg/dL Troponin I High Sensitivity < 3 L </=34 ng/L Blood Gas Specimen Type Arterial Blood Gas Sample Site Left radial Blood Gas Patient Temperature 37.0 Arterial Blood Date Drawn [id number] Arterial Blood pH 7.418 7.350-7.450 Arterial Blood Partial Pressure CO2 34.5 32.0-45.0 mmHg Arterial Blood Partial Pressure O2 84.3 83.0-108.0 mmHg Arterial Blood HCO3 21.8 21.0-28.0 mmol/L Arterial Blood Oxygen Saturation 97.9 94.0-98.0 % Arterial Blood Base Excess -2.1 L -2.0-3.0 mmol/L Arterial Blood Oxyhemoglobin 96.7 94.0-98.0 % Arterial Blood Carboxyhemoglobin 0.7 0.5-1.5 % Arterial Blood Methemoglobin 0.5 0.0-1.5 % Giacomo Test Yes Blood Gas Total Hemoglobin 13.10 12.0-16.0 g/dL Blood Gas Set Respiration Rate 12.0 Blood Gas Modality Mask - bipap FiO2 % 30.0 Blood Gas EPAP 5 Blood Gas IPAP 12 SEPSIS Sepsis Screen Date sepsis recognized/suspect: Jul 03, 2025 Time Sepsis recognized/suspect: 1929 Recent Procedure: No On Antibiotic Therapy: No Respiratory Rate >20: No Heart Rate >90: Yes Temp<36 C (96.8 F) or >38.3 C: No SBP <90 or MAP <65 mmHG: No New Acute Mental Status Change: No Is the patient on CPAP, BIPAP,: No Physician Orders Chest Xray 1 View (07/03/25 15:26) Electrocardigram (07/03/25 15:35) BIPAP (07/03/25 15:34) Abg W/ Co-Ox (07/03/25 15:34) Insert Midline (07/03/25 17:00) Albuterol Medneb (Ventolin Medneb) (07/03/25 23:00) Midazolam Injection (Versed Injection) (07/03/25 23:00) Regular Diet (07/04/25 Breakfast) Albuterol Medneb (Ventolin Medneb) (07/03/25 23:00) Ipratropium Medneb (Atrovent Medneb) (07/03/25 23:00) Methylprednisolone Sod Succ (Solu Medrol (07/04/25 10:00) Gabapentin Capsule (Neurontin Capsule) (07/04/25 10:00) Montelukast Tablet (Singulair Tablet) (07/04/25 22:00) Oxycodone W/ Acet 5/325mg Tab (Percocet (07/03/25 23:00) Basic Metabolic Panel (07/04/25 04:00) Admit (07/03/25 22:50) Temazepam (Restoril) (07/03/25 23:00) Ondansetron Hcl (Zofran) (07/03/25 23:00) Condition: Fair (07/03/25 22:50) Acetaminophen Tablet (Tylenol Tablet) (07/03/25 23:00) Bedrest With Bathroom Privileg (07/03/25 22:50) Nitroglycerin Sublingual (Ntrostat Subli (07/03/25 23:00) Morphine Sulfate Injection (07/03/25 23:00) Stat Ekg For Chest Pain (07/03/25 22:50) Notify Md Of Changes From Base (07/03/25 22:50) Press Operator Printing For 24 Hours (07/03/25 22:50) Emergency Dysrhythmia Protocol (07/03/25 22:50) Rhythm Strips Once Every Shift (07/03/25 22:50) Oxygen By Nasal Cannula (07/03/25 22:50) Vital Signs Date Time Temp Pulse Resp B/P (MAP) Pulse Ox O2 Delivery O2 Flow Rate FiO2 07/03/25 22:24 97.8 113 18 113/61 97 2.0 28 97.8 07/03/25 20:00 117 07/03/25 19:31 97.8 113 18 113/61 (78) 97 97.8 07/03/25 19:30 113 18 97 Nasal Cannula* 2 28 07/03/25 19:15 99 Nasal Cannula 2.0 07/03/25 19:14 99 Nasal Cannula* 2 28 11/19/25 18:12 97.4 126 23 120/70 (87) 100 97.4 07/03/25 15:54 132 117/81 Nasal BiPAP Mask 30 07/03/25 15:32 132 29 100 Bi-Pap+ 30 30 07/03/25 15:32 98.0 132 29 117/81 (93) 100 98.0 07/03/25 15:28 98.2 150 30 121/70 96 98.2 07/03/25 15:28 133 Laboratory Tests Test 07/03/25 19:14 White Blood Count 11.0 10^3/uL (4.4-10.8) H Medications Medications Dose Ordered Sig/Jessica Route Start Time Stop Time Status Last Admin Dose Admin Ketorolac Tromethamine 30 mg ONCE ONCE IV 07/03/25 17:30 07/03/25 17:31 DC 07/03/25 18:06 30 MG Magnesium Sulfate/ Dextrose 100 ml @ 100 mls/hr ONCE ONCE IV 07/03/25 15:30 07/03/25 16:29 DC 07/03/25 17:01 100 MLS/HR Methylprednisolone Sodium Succinate 125 mg ONCE ONCE IM 07/03/25 15:30 07/03/25 15:31 DC 07/03/25 15:57 125 MG Midazolam HCl 2 mg ONCE ONCE IM 07/03/25 15:45 07/03/25 15:46 DC 07/03/25 15:25 2 MG Potassium Bicarbonate 50 meq ONCE ONCE PO 07/03/25 20:30 07/03/25 20:39 DC 07/03/25 20:46 50 MEQ Sodium Chloride 1,000 ml @ 1,000 mls/hr Q1H ONCE IV 07/03/25 20:30 07/03/25 21:29 DC 07/03/25 20:42 1,000 MLS/HR Assessment/Plan Assessment/Plan Assessment Acute on chronic hypoxic respiratory failure Asthma exacerbation Chronic pain syndrome Hypokalemia Plan Admit the patient to telemetry to the hospitalist Med nebs Resume home medications Continue treatment per orders. Plan discussed with: Patient My Orders Orders - DEANNE INFANTE AGACNP Procedure Category Date Status Time Regular Diet DIET 07/04/25 Transmitted Breakfast Albuterol Medneb PHA 07/03/25 Transmitted (Ventolin Medneb) 23:00 Ipratropium Medneb PHA 07/03/25 Transmitted (Atrovent Medneb) 23:00 Methylprednisolone PHA 07/04/25 Transmitted Sod Succ (Solu Medrol 10:00 Gabapentin Capsule PHA 07/04/25 Transmitted (Neurontin Capsule) 10:00 Montelukast Tablet PHA 07/04/25 Transmitted (Singulair Tablet) 22:00 Oxycodone W/ Acet PHA 07/03/25 Transmitted 5/325mg Tab (Percocet 23:00 Basic Metabolic Panel LAB 07/04/25 Verified 04:00 Admit ADMIT 07/03/25 Transmitted 22:50 Temazepam (Restoril) PHA 07/03/25 Transmitted 23:00 Ondansetron Hcl PHA 07/03/25 Transmitted (Zofran) 23:00 Condition: Fair TARAN 07/03/25 Transmitted 22:50 Acetaminophen Tablet [facility] 07/03/25 Transmitted (Tylenol Tablet) 23:00 Bedrest With Bathroom TARAN 07/03/25 Transmitted Privileg 22:50 Nitroglycerin [facility] 07/03/25 Transmitted Sublingual (Ntrostat 23:00 Morphine Sulfate PHA 07/03/25 Transmitted Injection 23:00 Stat Ekg For Chest [facility] 07/03/25 Transmitted Pain 22:50 Notify Md Of Changes [facility] 07/03/25 Transmitted From Base 22:50 Press Operator Printing For [facility] 07/03/25 Transmitted 24 Hours 22:50 Emergency Dysrhythmia [facility] 07/03/25 Transmitted Protocol 22:50 Rhythm Strips Once [facility] 07/03/25 Transmitted Every Shift 22:50 Oxygen By Nasal RT 07/03/25 Transmitted Cannula 22:50 Date of Service: Jul 03, 2025 Billing Provider: DEANNE INFANTE Common Visit Codes: [id number] INP/OBS CARE (HIGH) DEANNE INFANTE Jul 03, 2025 23:00
[2025-07-03] MEDS: ALBUTEROL SULF 2.5 MG/0.5ML(0.5%) NEB SOLN ONE (23:02)
[2025-07-03] MEDS: MIDAZOLAM HCL 2MG/2ML 2ml VIAL (1mg/ml) IV ONE (23:05)
[2025-07-03] MEDS: OXYCODONE W/ ACETAMINOPHEN 5/325MG TABLET PO PRN (23:46)
[2025-07-04] VITALS (15 sets, daily range): BP systolic 90–152; BP diastolic 57–102; PULSE 106–140; RESP 19–24; O2SAT 97–100
[2025-07-04] MEDS: MORPHINE SULFATE INJ 2 MG/ml SYRG IV PRN (02:24)
[2025-07-04] MEDS: MORPHINE SULFATE 4 MG/ML SYR/VIAL ONE (02:25)
[2025-07-04] MEDS: IPRATROPIUM BROM 0.5 MG/2.5ML INH SOL NEB PRN (06:25)
[2025-07-04] MEDS: ALBUTEROL SULF 2.5 MG/0.5ML(0.5%) NEB SOLN NEB PRN (06:25)
[2025-07-04 07:10] LABS: Potassium 4.5 mmol/L (3.5-5.1); Sodium 143 mmol/L (136-145)
[2025-07-04 07:11] LABS: Anion Gap 16 (5-15); Calcium 9.1 mg/dL (8.7-10.4)
[2025-07-04 07:16] LABS: BUN/Creatinine Ratio 9.6 (10.0-20.0)
[2025-07-04 07:17] LABS: Blood Urea Nitrogen 7 mg/dL (9-23); Carbon Dioxide 16 mmol/L (20-31); Chloride 111 mmol/L (98-107); Glucose 169 mg/dL (74-106)
[2025-07-04] MEDS: GABAPENTIN 300 MG CAP PO SCH (09:35)
[2025-07-04] MEDS: methylPREDNISolone SOD SUCC 40 MG/ML VL IV SCH ×2 (09:35→14:10)
[2025-07-04] MEDS: ALBUTEROL SULF 2.5 MG/0.5ML(0.5%) NEB SOLN NEB ONE ×2 (10:15→20:53)
[2025-07-04] MEDS: IPRATROPIUM BROM 0.5 MG/2.5ML INH SOL NEB ONE ×2 (10:15→20:53)
[2025-07-04] MEDS: ALBUTEROL SULF 2.5 MG/0.5ML(0.5%) NEB SOLN ONE (10:24)
[2025-07-04] MEDS: IPRATROPIUM BROM 0.5 MG/2.5ML INH SOL ONE (10:24)
--- NOTE | 2025-07-04 13:23 | DVHPN2 ---
Subjective Patient denies any symptoms at this time. Reviewed: Care Plan, H&P, Labs, Medications Changes from previous H/P or p: No Changes General: Per HPI Objective Vitals Vital Signs Date Time Temp Pulse Resp B/P (MAP) Pulse Ox O2 Delivery O2 Flow Rate FiO2 07/04/25 11:01 98 Nasal Cannula* 2 28 07/04/25 11:00 127 18 113/74 (87) 07/03/25 22:24 97.8 97.8 Intake/Output Intake and Output 07/04/25 07:00 Intake Total 100 ml Output Total 300 ml Balance -200 ml Intake IV Total 100 ml Output Urine Total 300 ml General Appearance: Alert, Oriented X3, Cooperative, No acute distress HEENT: Atraumatic, PERRLA Lungs: Clear to auscultation, Normal air movement Cardiovascular: Normal S1, Normal S2, Other (Sinus tachycardia) Musculoskeletal: Normal sensory function, Normal motor function Skin: Dry, Intact Psych/Mental Status: Mental status NL, Mood NL Medications Current Medications Medications Dose Ordered Sig/Jessica Route Start Time Stop Time Status Last Admin Dose Admin Gabapentin 300 mg BID PO 07/04/25 10:00 07/04/25 09:35 300 MG Montelukast Sodium 10 mg HS PO 07/04/25 22:00 Oxycodone/ Acetaminophen 2 tab Q8HP PRN PO 07/03/25 23:00 07/04/25 09:36 2 TAB Temazepam 15 mg QHSP PRN PO 07/03/25 23:00 Ondansetron HCl 4 mg Q4HP PRN IV 07/03/25 23:00 Acetaminophen 650 mg Q6HP PRN PO 07/03/25 23:00 Nitroglycerin 0.4 mg Q5MINP PRN SL 07/03/25 23:00 Morphine Sulfate 2 mg Q30M PRN IV 07/03/25 23:00 07/04/25 02:24 2 MG Albuterol 2.5 mg Q4HR NEB 07/04/25 14:00 Ipratropium [place] 0.5 mg Q4HR NEB 07/04/25 14:00 Methylprednisolone Sodium Succinate 40 mg TID IV 07/04/25 14:00 Laboratory Results Laboratory Tests 07/03/25 19:14 07/04/25 06:47 Chemistry Test 07/03/25 19:14 07/04/25 06:47 Calcium Level 9.2 mg/dL (8.7-10.4) 9.1 mg/dL (8.7-10.4) Blood Gas Results Test 07/03/25 16:53 Arterial Blood pH 7.418 (7.350-7.450) FiO2 % 30.0 Labs and/or images reviewed: Labs reviewed by me, Image(s) reviewed by me Assessment/Plan Assessment/Plan Impression: -acute hypoxic respiratory failure -acute exacerbation of asthma -history of spina bifida -chronic pain syndrome with chronic opiate use -obesity -trachea dysplasia Plan: -continue bronchodilators -continue empiric antibiotic therapy -pulmonary consultation -pain management -IV hydration -repeat labs and chest x-ray in a.m. Total time spent with patient discussing and formulating plan of care: 35 minutes. This medical document was created using an electronic medical record system with [employer] system. Although this document has been carefully reviewed, there may still be some phonetic and typographical errors. These areas are purely typographical due to imperfections of the software programs, and do not reflect any compromise in the patient's medical care. Plan discussed with: Patient, Other (RN) My Orders Orders - TINO SCHULTE NP Procedure Category Date Status Time Albuterol Medneb PHA 07/04/25 In Process (Ventolin Medneb) 14:00 Ipratropium Medneb PHA 07/04/25 In Process (Atrovent Medneb) 14:00 Methylprednisolone PHA 07/04/25 In Process Sod Succ (Solu Medrol 14:00 Drug Screen LAB 07/04/25 Logged 12:54 *Consult CONS 07/04/25 Transmitted 12:54 Sodium Chloride 0.9% PHA 07/04/25 Logged 13:00 Date of Service: Jul 04, 2025 Billing Provider: TINO SCHULTE NP Common Visit Codes: [id number] INP/OBS CARE(HIGH) TINO SCHULTE NP Jul 04, 2025 13:23
--- NOTE | 2025-07-04 13:36 | DVHINCON2 ---
Date of service: Jul 04, 2025 Referring Physician Chao Galvan NP Reason for Consultation asthma History of Present Illness HPI 44 yo hisp female pt, h/o asthma and VCD, previous admissions and intubations, presented with worsening SoB, wheezing and cough. hypoxemic in the ER, req suppl 02. pt admitted with acute asthma attack Home Meds Active Scripts Azithromycin (Azithromycin) 500 Mg Tab, 1 TAB PO DAILY for 3 Days, #3 TAB Prov:SIRENA MCCAIN RESIDENT 06/07/25 Prednisone (Prednisone) 20 Mg Tab, 40 MG PO DAILY for 5 Days, #10 MG Prov:SIRENA MCCAIN RESIDENT 06/07/25 Prednisone (Prednisone) 20 Mg Tab, 20 MG PO DAILY for 7 Days, #7 MG Prov:TINO GALVAN NP 05/31/25 Azithromycin (Zithromax Z-Lonnie) 250 Mg Tab, 250 MG PO DAILY for 4 Days, #4 TAB Z-Pack unit dose pack #1 Administer as directed Prov:TINO GALVAN NP 05/31/25 Azithromycin (ZITHROMAX TABLET) 250 Mg Tb, 250 MG PO DAILY, #6 TAB take 2 tabs the first day, then 1 tab daily until finish Prov:HEATHER CLARK MD 04/23/25 Methylprednisolone (Medrol Dosepak) 4 Mg Lonnie, 4 MG PO UD, #21 TAB UAD Prov:HEATHER CLARK MD 04/23/25 Albuterol Sulfate (Ventolin) 2.5 Mg/0.5 Ml Nb, 2.5 MG NEB Q4HPRN PRN for 30 Days, #30 INH Prov:MAXIME GRIDER RESIDENT 01/11/24 Reported Medications Montelukast Sodium (MONTELUKAST SODIUM) 10 Mg Tab, 1 TAB PO DAILY 08/02/24 Docusate Sodium (Colace) 100 Mg Cap, 100 MG PO DAILY for CONSTIPATION, CAP 01/08/24 Cholecalciferol (VITAMIN D3) 2,000 Unit Tab, 5000 UNIT OR QWEEKLY for LOW VITAMIN D, TAB 01/08/24 Cyclobenzaprine Hcl (Cyclobenzaprine Hcl) 10 Mg Tab, 5 MG PO BID for MUSCLE RELAXANT for 30 Days, MG 11/30/23 Oxycodone W/ Acetaminophen (Apap/Oxycodone) 1 Tab Tab, 1 TAB PO QID PRN for BACK PAIN,, #90 TAB 10/325 08/27/23 Ferrous Sulfate (Ferosul) 325 Mg Tab, 325 PO DAILY for ANEMIA 03/03/23 Gabapentin (Gabapentin) 300 Mg Cap, 300 MG PO BID PRN for NEUROPATHRY LEG PAIN 03/02/23 Past Medical History Cardiac: No pertinent Hx Pulmonary: Asthma Central Nervous System: No pertinent Hx GI: No pertinent Hx Hemotology/Oncology: No pertinent Hx Hepatobiliary: No pertinent Hx Psychiatric: No pertinent Hx Musculoskeletal: No pertinent Hx Rheumotologic: No pertinent Hx Infectious Disease: No peritnent Hx ENT: No pertinent Hx Renal/: No pertinent Hx Endocrine: No pertinent Hx Dermatology: No pertinent Hx Past Surgical History: No pertinent Hx Family History: No pertinent Hx Patient Family History: Cardiovascular disease G8 MOTHER Cerebrovascular accident (CVA) G8 MOTHER G8 FATHER Diabetes mellitus G8 MOTHER G8 FATHER G8 MOTHER Diabetes mellitus G8 MOTHER G8 FATHER G8 MOTHER FH: CHF (congestive heart failure) G8 MOTHER FH: bipolar disorder G8 MOTHER FH: cancer G8 MOTHER G8 FATHER FH: myocardial infarction G8 MOTHER FH: throat cancer G8 FATHER FHx: stroke G8 MOTHER G8 FATHER Hypertension G8 FATHER Review of Systems Constitutional: No symptom reported Ears, Nose, & Throat: No symptom reported Eyes: No symptom reported Pulmonary/Respiratory: Dyspnea, Cough Cardiovascular: No symptom reported Gastrointestinal: No symptom reported Genitourinary: No symptom reported Musculoskeletal: No symptom reported Skin: No symptom reported Psychiatric: No symptom reported Endocrine: No symptom reported Hemotologic/Lymphatic: No symptom reported H&P Exam Vital Signs Vital Signs Date Time Temp Pulse Resp B/P (MAP) Pulse Ox O2 Delivery O2 Flow Rate FiO2 07/04/25 11:01 98 Nasal Cannula* 2 28 07/04/25 11:00 127 18 113/74 (87) 07/03/25 22:24 97.8 97.8 General Appeara: Well developed, Well nourished, Normal Appearance Head Exam: Normal inspection Neck Exam: Normal inspection, Non-tender, Normal alignment Eye Exam: bilateral eye Normal inspection, bilateral eye PERRL, bilateral eye EOMI Ear Exam: bilateral ear Auricle normal, bilateral ear Canal normal Nasal Exam: Normal inspection Mouth: Normal Inspection Pulmonary/Respiratory: Normal inspection, Normal breath sounds, Chest non- tender Cardiovascular/Chest: Normal inspection Peripheral Pulses: 4+ carotid (R), 4+ carotid (L) Labs/Xrays Labs Test 07/04/25 06:47 07/03/25 19:14 07/03/25 16:53 Range/Units Sodium Level 143 136-145 mmol/L Potassium Level 4.5 3.5-5.1 mmol/L Chloride Level 111 H 98-107 mmol/L Carbon Dioxide Level 16 L 20-31 mmol/L Anion Gap 16 H 5-15 Blood Urea Nitrogen 7 L 9-23 mg/dL Creatinine 0.73 0.550-1.02 mg/dL Glomerular Filtration Rate Calc 105 >90 mL/min BUN/Creatinine Ratio 9.6 L 10.0-20.0 Serum Glucose 169 H 74-106 mg/dL Calcium Level 9.1 8.7-10.4 mg/dL White Blood Count 11.0 H 4.4-10.8 10^3/uL Red Blood Count 4.47 4.0-5.20 10^6/uL Hemoglobin 12.5 12.2-16.2 g/dL Hematocrit 38.4 36.0-46.0 % Mean Corpuscular Volume 85.9 80.0-100.0 fL Mean Corpuscular Hemoglobin 28.0 28.0-32.0 pg Mean Corpuscular Hemoglobin Concent 32.6 32.0-36.0 g/dL Red Cell Distribution Width 14.7 H 11.8-14.3 % Platelet Count 318 140-450 10^3/uL Mean Platelet Volume 7.2 6.9-10.8 fL Neutrophils (%) (Auto) 93.3 H 37.0-80.0 % Lymphocytes (%) (Auto) 4.9 L 10.0-50.0 % Monocytes (%) (Auto) 1.7 0.0-12.0 % Eosinophils (%) (Auto) 0.0 0.0-7.0 % Basophils (%) (Auto) 0.1 0.0-2.0 % Neutrophils # (Auto) 10.3 H 1.6-8.6 10 ^3/uL Lymphocytes # (Auto) 0.5 0.4-5.4 10 ^3/uL Monocytes # (Auto) 0.2 0-1.3 10 ^3/uL Eosinophils # (Auto) 0 0-0.8 10 ^3/uL Basophils # (Auto) 0 0-0.2 10 ^3/uL Nucleated Red Blood Cells 0.0 % Troponin I High Sensitivity < 3 L </=34 ng/L Blood Gas Specimen Type Arterial Blood Gas Sample Site Left radial Blood Gas Patient Temperature 37.0 Arterial Blood Date Drawn [id number] Arterial Blood pH 7.418 7.350-7.450 Arterial Blood Partial Pressure CO2 34.5 32.0-45.0 mmHg Arterial Blood Partial Pressure O2 84.3 83.0-108.0 mmHg Arterial Blood HCO3 21.8 21.0-28.0 mmol/L Arterial Blood Oxygen Saturation 97.9 94.0-98.0 % Arterial Blood Base Excess -2.1 L -2.0-3.0 mmol/L Arterial Blood Oxyhemoglobin 96.7 94.0-98.0 % Arterial Blood Carboxyhemoglobin 0.7 0.5-1.5 % Arterial Blood Methemoglobin 0.5 0.0-1.5 % Giacomo Test Yes Blood Gas Total Hemoglobin 13.10 12.0-16.0 g/dL Blood Gas Set Respiration Rate 12.0 Blood Gas Modality Mask - bipap FiO2 % 30.0 Blood Gas EPAP 5 Blood Gas IPAP 12 Assessment/Plan Plan asthma vocal cord dysfunction acute hypoxemia obesity CXR no active disease management suppl 02 nebs solumedrol with taper inc spirometry dvt proph Plan discussed with: Patient JORI ESCAMILLA MD Jul 04, 2025 13:36
[2025-07-04] MEDS: ALBUTEROL SULF 2.5 MG/0.5ML(0.5%) NEB SOLN NEB SCH (13:57)
[2025-07-04] MEDS: IPRATROPIUM BROM 0.5 MG/2.5ML INH SOL NEB SCH (13:57)
[2025-07-04] MEDS: SODIUM CHLORIDE 0.9% 1,000 ML IV ONE (14:09)
[2025-07-04] MEDS ORDERED: IPRATROPIUM BROM 0.5 MG/2.5ML INH SOL NEB PRN ×2 (21:30)
[2025-07-04] MEDS ORDERED: ALBUTEROL SULF 2.5 MG/0.5ML(0.5%) NEB SOLN NEB PRN ×2 (21:30)
[2025-07-04] MEDS: MONTELUKAST SODIUM 10 MG TAB PO SCH (21:33)
[2025-07-05] VITALS (38 sets, daily range): BP systolic 95–138; BP diastolic 46–95; PULSE 63–109; RESP 11–28; TEMP 97.8–98.8; O2SAT 95–100
[2025-07-05 06:51] LABS: Hematocrit 33.3 % (36.0-46.0); Hemoglobin 11.1 g/dL (12.2-16.2); Mean Corpuscular Hemoglobin 28.4 pg (28.0-32.0); Mean Corpuscular Volume 85.4 fL (80.0-100.0); Nucleated Red Blood Cells % 0.0 %
[2025-07-05 07:08] LABS: Alanine Aminotransferase 13 U/L (7-40); Albumin 4.0 g/dL (3.2-4.8); Alkaline Phosphatase 77 U/L (46-116); Anion Gap 10 (5-15); BUN/Creatinine Ratio 16.4 (10.0-20.0); Blood Urea Nitrogen 11 mg/dL (9-23); Calcium 9.2 mg/dL (8.7-10.4); Carbon Dioxide 22 mmol/L (20-31); Potassium 4.3 mmol/L (3.5-5.1); Sodium 143 mmol/L (136-145); Total Protein 6.2 g/dL (5.7-8.2)
[2025-07-05 07:17] LABS: Bilirubin, Total 0.2 mg/dL (0.2-1.0); Chloride 111 mmol/L (98-107); Glucose 148 mg/dL (74-106)
[2025-07-05 08:38] LABS: Base Excess -3.7 mmol/L (-2.0-3.0)
--- NOTE | 2025-07-05 12:13 | DVHPN2 ---
Subjective Patient denies any symptoms at this time. Reviewed: Care Plan, H&P, Labs, Medications Changes from previous H/P or p: No Changes General: Per HPI Objective Vitals Vital Signs Date Time Temp Pulse Resp B/P (MAP) Pulse Ox O2 Delivery O2 Flow Rate FiO2 07/05/25 12:00 98.8 99 15 128/80 (96) 97 98.8 07/05/25 11:19 Nasal Cannula* 2 28 Intake/Output Intake and Output 07/05/25 07:00 Output Total 250 ml Balance -250 ml Output Urine Total 250 ml General Appearance: Alert, Oriented X3, Cooperative, No acute distress HEENT: Atraumatic, PERRLA Lungs: Clear to auscultation, Normal air movement Cardiovascular: Normal S1, Normal S2, Other (Sinus tachycardia) Musculoskeletal: Normal sensory function, Normal motor function Skin: Dry, Intact Psych/Mental Status: Mental status NL, Mood NL Medications Current Medications Medications Dose Ordered Sig/Jessica Route Start Time Stop Time Status Last Admin Dose Admin Gabapentin 300 mg BID PO 07/04/25 10:00 07/05/25 10:54 300 MG Montelukast Sodium 10 mg HS PO 07/04/25 22:00 07/04/25 21:33 10 MG Oxycodone/ Acetaminophen 2 tab Q8HP PRN PO 07/03/25 23:00 07/05/25 11:06 2 TAB Temazepam 15 mg QHSP PRN PO 07/03/25 23:00 Ondansetron HCl 4 mg Q4HP PRN IV 07/03/25 23:00 Acetaminophen 650 mg Q6HP PRN PO 07/03/25 23:00 Nitroglycerin 0.4 mg Q5MINP PRN SL 07/03/25 23:00 Morphine Sulfate 2 mg Q30M PRN IV 07/03/25 23:00 07/04/25 14:43 2 MG Albuterol 2.5 mg Q4HR NEB 07/04/25 14:00 07/05/25 11:19 2.5 MG Ipratropium [place] 0.5 mg Q4HR NEB 07/04/25 14:00 07/05/25 11:19 0.5 MG Methylprednisolone Sodium Succinate 40 mg TID IV 07/04/25 14:00 07/05/25 06:00 40 MG Albuterol 2.5 mg Q2HPRN PRN NEB 07/04/25 21:30 Ipratropium [place] 0.5 mg Q2HPRN PRN NEB 07/04/25 21:30 Laboratory Results Laboratory Tests 07/05/25 06:23 Chemistry Test 07/05/25 06:23 Albumin 4.0 g/dL (3.2-4.8) Calcium Level 9.2 mg/dL (8.7-10.4) Total Protein 6.2 g/dL (5.7-8.2) LFT Test 07/05/25 06:23 Alanine Aminotransferase (ALT) 13 U/L (7-40) Alkaline Phosphatase 77 U/L (46-116) Aspartate Amino Transferase (AST) 11 U/L (13-40) L Total Bilirubin 0.2 mg/dL (0.2-1.0) Blood Gas Results Test 07/05/25 08:22 Arterial Blood pH 7.394 (7.350-7.450) FiO2 % 32.0 Labs and/or images reviewed: Labs reviewed by me, Image(s) reviewed by me Assessment/Plan Assessment/Plan Impression: -acute hypoxic respiratory failure -acute exacerbation of asthma -history of spina bifida -chronic pain syndrome with chronic opiate use -obesity -trachea dysplasia Plan: -continue bronchodilators -continue empiric antibiotic therapy -pulmonary consultation -pain management -IV hydration -repeat labs and chest x-ray in a.m. Total time spent with patient discussing and formulating plan of care: 35 minutes. This medical document was created using an electronic medical record system with [employer] dictation system. Although this document has been carefully reviewed, there may still be some phonetic and typographical errors. These areas are purely typographical due to imperfections of the software programs, and do not reflect any compromise in the patient's medical care. Plan discussed with: Patient, Other (RN) My Orders Orders - TINO SCHULTE NP Procedure Category Date Status Time Drug Screen LAB 07/04/25 Logged 12:54 *Consult CONS 07/04/25 Transmitted 12:54 Abg W/ Co-Ox RT 07/05/25 Logged 08:06 Mrsa Screen BENJA 07/05/25 In Process 11:31 Albuterol Medneb PHA 07/05/25 Transmitted (Ventolin Medneb) 18:00 Ipratropium Medneb PHA 07/05/25 Transmitted (Atrovent Medneb) 18:00 Methylprednisolone PHA 07/06/25 Transmitted Sod Succ (Solu Medrol 10:00 Date of Service: Jul 05, 2025 Billing Provider: TINO SCHULTE NP Common Visit Codes: [id number] CARE 30-74 MIN TINO SCHULTE NP Jul 05, 2025 12:13
--- NOTE | 2025-07-05 14:25 | DVHPN2 ---
Progress Note - Dictate Date Seen: Jul 05, 2025 Has the PT tested + for MRSA If YES, has PT been informed?: No Medical Necessity Reason Pt with a Central, PICC or Fol: No vital signs Vital Sign Date Time Temp Pulse Resp B/P (MAP) Pulse Ox O2 Delivery O2 Flow Rate FiO2 07/05/25 14:00 100 18 111/72 (85) 98 07/05/25 12:00 98.8 98.8 07/05/25 11:19 Nasal Cannula* 2 28 Total Intake and Output 07/04/25 07/04/25 07/05/25 15:00 23:00 07:00 Output Total 250 ml Balance -250 ml medications Current Medications Medications Dose Ordered Sig/Jessica Route Start Time Stop Time Status Last Admin Dose Admin Gabapentin 300 mg BID PO 07/04/25 10:00 07/05/25 10:54 300 MG Montelukast Sodium 10 mg HS PO 07/04/25 22:00 07/04/25 21:33 10 MG Oxycodone/ Acetaminophen 2 tab Q8HP PRN PO 07/03/25 23:00 07/05/25 11:06 2 TAB Temazepam 15 mg QHSP PRN PO 07/03/25 23:00 Ondansetron HCl 4 mg Q4HP PRN IV 07/03/25 23:00 Acetaminophen 650 mg Q6HP PRN PO 07/03/25 23:00 Nitroglycerin 0.4 mg Q5MINP PRN SL 07/03/25 23:00 Morphine Sulfate 2 mg Q30M PRN IV 07/03/25 23:00 07/04/25 14:43 2 MG Albuterol 2.5 mg Q2HPRN PRN NEB 07/04/25 21:30 Ipratropium [place] 0.5 mg Q2HPRN PRN NEB 07/04/25 21:30 Albuterol 2.5 mg Q6HWA NEB 07/05/25 18:00 Ipratropium [place] 0.5 mg Q6HWA NEB 07/05/25 18:00 Methylprednisolone Sodium Succinate 40 mg DAILY IV 07/06/25 10:00 laboratory and microbiology Laboratory Tests 07/05/25 06:23 Test 07/05/25 06:23 Range/Units Serum Glucose 148 H 74-106 mg/dL Assessment/Plan asthma vocal cord dysfunction acute hypoxemia obesity CXR no active disease events none cont supportive care management suppl 02 nebs solumedrol with taper inc spirometry dvt proph Plan discussed with: Patient JORI ESCAMILLA MD Jul 05, 2025 14:25
[2025-07-05] MEDS: IPRATROPIUM BROM 0.5 MG/2.5ML INH SOL NEB SCH (18:15)
[2025-07-05] MEDS: ALBUTEROL SULF 2.5 MG/0.5ML(0.5%) NEB SOLN NEB SCH (18:15)
[2025-07-05] MEDS: LINEZOLID 600 MG/300 ML IV ONE (21:13)
[2025-07-05] MEDS: TEMAZEPAM 15 MG CAP PO PRN (22:15)
[2025-07-06] VITALS (30 sets, daily range): BP systolic 90–159; BP diastolic 49–126; PULSE 58–110; RESP 10–28; TEMP 97.9–98.8; O2SAT 93–100
--- NOTE | 2025-07-06 10:20 | DVHDS2 ---
Discharge Summary Date of Admission Jul 03, 2025 at 22:50 Date of Discharge: Jul 06, 2025 Labs/Diagnostic Data: Laboratory Results Test 07/05/25 08:22 07/05/25 06:23 07/03/25 19:14 07/03/25 16:53 Blood Gas Specimen Type Arterial Blood Gas Sample Site Right radial Blood Gas Patient Temperature 37.0 Arterial Blood Date Drawn [id number] Arterial Blood pH 7.394 (7.350-7.450) Arterial Blood Partial Pressure CO2 34.7 mmHg (32.0-45.0) Arterial Blood Partial Pressure O2 92.8 mmHg (83.0-108.0) Arterial Blood HCO3 20.7 mmol/L (21.0-28.0) Arterial Blood Oxygen Saturation 96.6 % (94.0-98.0) Arterial Blood Base Excess -3.7 mmol/L (-2.0-3.0) Arterial Blood Oxyhemoglobin 96.1 % (94.0-98.0) Arterial Blood Carboxyhemoglobin 0.4 % (0.5-1.5) Arterial Blood Methemoglobin 0.1 % (0.0-1.5) Arterial Blood Deoxyhemoglobin 3.4 % (0.0-5.0) Giacomo Test Positive Blood Gas Total Hemoglobin 8.40 g/dL (12.0-16.0) Blood Gas Modality Nasal cannula FiO2 % 32.0 White Blood Count 13.7 10^3/uL (4.4-10.8) Red Blood Count 3.89 10^6/uL (4.0-5.20) Hemoglobin 11.1 g/dL (12.2-16.2) Hematocrit 33.3 % (36.0-46.0) Mean Corpuscular Volume 85.4 fL (80.0-100.0) Mean Corpuscular Hemoglobin 28.4 pg (28.0-32.0) Mean Corpuscular Hemoglobin Concent 33.3 g/dL (32.0-36.0) Red Cell Distribution Width 14.8 % (11.8-14.3) Platelet Count 331 10^3/uL (140-450) Mean Platelet Volume 7.3 fL (6.9-10.8) Neutrophils (%) (Auto) 87.2 % (37.0-80.0) Lymphocytes (%) (Auto) 9.9 % (10.0-50.0) Monocytes (%) (Auto) 2.8 % (0.0-12.0) Eosinophils (%) (Auto) 0.0 % (0.0-7.0) Basophils (%) (Auto) 0.1 % (0.0-2.0) Neutrophils # (Auto) 12.0 10 ^3/uL (1.6-8.6) Lymphocytes # (Auto) 1.4 10 ^3/uL (0.4-5.4) Monocytes # (Auto) 0.4 10 ^3/uL (0-1.3) Eosinophils # (Auto) 0 10 ^3/uL (0-0.8) Basophils # (Auto) 0 10 ^3/uL (0-0.2) Nucleated Red Blood Cells 0.0 % Sodium Level 143 mmol/L (136-145) Potassium Level 4.3 mmol/L (3.5-5.1) Chloride Level 111 mmol/L (98-107) Carbon Dioxide Level 22 mmol/L (20-31) Anion Gap 10 (5-15) Blood Urea Nitrogen 11 mg/dL (9-23) Creatinine 0.67 mg/dL (0.550-1.02) Glomerular Filtration Rate Calc 111 mL/min (>90) BUN/Creatinine Ratio 16.4 (10.0-20.0) Serum Glucose 148 mg/dL (74-106) Calcium Level 9.2 mg/dL (8.7-10.4) Total Bilirubin 0.2 mg/dL (0.2-1.0) Aspartate Amino Transferase (AST) 11 U/L (13-40) Alanine Aminotransferase (ALT) 13 U/L (7-40) Alkaline Phosphatase 77 U/L (46-116) Total Protein 6.2 g/dL (5.7-8.2) Albumin 4.0 g/dL (3.2-4.8) Troponin I High Sensitivity < 3 ng/L (</=34) Blood Gas Set Respiration Rate 12.0 Blood Gas EPAP 5 Blood Gas IPAP 12 Other Laboratory Tests 07/05/25 06:23 Brief Hx & Hospital Course: 44-year-old female presents for evaluation of shortness for breath. Patient reports a one day history of severe shortness for breath with wheezing. Patient used her med nebs and nebulizer at home without relief of the symptoms. No chest pain or palpitations. Past Medical History Asthma, COPD, thyroid, anxiety, anemia 07/06: Patient here for asthma exacerbation, off of oxygen now. No wheezing. We will check patient's ambulatory status, if ambulating well we will remove Vera. Patient takes Singulair and home has nebulizer treatments. Patient does not have any daily control inhaler, we will send Singulair at discharge. Patient to take prednisone 40 mg daily for 5 days. Patient has osteoporosis from history of high steroid use, taking chronic pain medication, we will give some laxative stool softeners docusate 100 b.i.d. and MiraLax 17 daily. Recommend patient get allergy specialists as she has been intubated and ventilator dependent multiple times. Patient already has set up marriage counselor with [facility], defer further ongoing management of complicated asthma to pulmonology. Diagnosis: -acute hypoxic respiratory failure -acute exacerbation of asthma -history of spina bifida -chronic pain syndrome with chronic opiate use -obesity -trachea dysplasia Plan: - Continue Singulair - Use Symbicort , x2/day - Prednisone 40 mg daily for 5 days - Okay to continue other home medications. Continue Colace, MiraLax. - Follow up with PCP to review discharge - Follow up with pulmonology [facility] Chowdhury - Follow up DC clinic Condition at Discharge: Fair Final Diagnosis/Problems List -acute hypoxic respiratory failure -acute exacerbation of asthma -history of spina bifida -chronic pain syndrome with chronic opiate use -obesity -trachea dysplasia Discharge Disposition: Home Discharge Instruct/Medications Scheduled Azithromycin (Zithromax Tablet), 250 MG PO DAILY Azithromycin (Zithromax Z-Lonnie), 250 MG PO DAILY Azithromycin (Azithromycin), 1 TAB PO DAILY Budesonide-Formoterol Fumarate (Budesonide/Formoterol Fum 160-4.5 Mcg/Act), 1 AER IN BID Cholecalciferol (Vitamin D3), 5,000 UNIT OR QWEEKLY, (Reported) Cyclobenzaprine Hcl (Cyclobenzaprine Hcl), 5 MG PO BID, (Reported) Docusate Sodium (Colace), 100 MG PO DAILY, (Reported) Ferrous Sulfate (Ferosul), 325 PO DAILY, (Reported) Methylprednisolone (Medrol Dosepak), 4 MG PO UD Montelukast Sodium (Montelukast Sodium), 1 TAB PO DAILY, (Reported) Prednisone (Prednisone), 20 MG PO DAILY Prednisone (Prednisone), 40 MG PO DAILY Prednisone (Prednisone), 40 MG PO DAILY Scheduled PRN Albuterol Sulfate (Ventolin), 2.5 MG NEB Q4HPRN PRN Gabapentin (Gabapentin), 300 MG PO BID PRN for NEUROPATHRY LEG PAIN, (Reported) Oxycodone W/ Acetaminophen (Apap/Oxycodone), 1 TAB PO QID PRN for BACK PAIN,, (Reported) Discharge Statement: "Patient was advised to return to the ER or call 911 if any headaches, dizziness, shortness of breath, chest pain, abdominal pain, bleeding, fevers, or worsening of medical condition. Patient was counseled about treatment plan, medications, possible side effects, patientverbalized understanding. All questions were answered to the best of my ability. This discharge took greater then 30 minutes in planning, reviewing documentation, counseling the patient, and discussing with other team members." ASSESSMENT ASSESSMENT Assessment Date of Service: Jul 06, 2025 Billing Provider: EMILY FULTON MD Common Visit Codes: [id number] DISCH DAY >30min EMILY FULTON MD Jul 06, 2025 10:20
[2025-07-06] MEDS: methylPREDNISolone SOD SUCC 40 MG/ML VL IV SCH (10:36)
--- NOTE | 2025-07-06 12:53 | DVHPN2 ---
Progress Note - Dictate Date Seen: Jul 06, 2025 Has the PT tested + for MRSA If YES, has PT been informed?: No Medical Necessity Reason Pt with a Central, PICC or Fol: No vital signs Vital Sign Date Time Temp Pulse Resp B/P (MAP) Pulse Ox O2 Delivery O2 Flow Rate FiO2 07/06/25 12:15 83 16 100 07/06/25 11:00 119/68 (85) 07/06/25 08:20 Nasal Cannula* 3 32 07/06/25 08:00 98.3 98.3 Total Intake and Output 07/05/25 07/05/25 07/06/25 15:00 23:00 07:00 Intake Total 0 ml 600 ml 550 ml Output Total 275 ml 400 ml Balance 0 ml 325 ml 150 ml medications Current Medications Medications Dose Ordered Sig/Jessica Route Start Time Stop Time Status Last Admin Dose Admin Gabapentin 300 mg BID PO 07/04/25 10:00 07/06/25 10:36 300 MG Montelukast Sodium 10 mg HS PO 07/04/25 22:00 07/06/25 10:36 10 MG Oxycodone/ Acetaminophen 2 tab Q8HP PRN PO 07/03/25 23:00 07/06/25 06:51 2 TAB Temazepam 15 mg QHSP PRN PO 07/03/25 23:00 07/05/25 22:15 15 MG Ondansetron HCl 4 mg Q4HP PRN IV 07/03/25 23:00 Acetaminophen 650 mg Q6HP PRN PO 07/03/25 23:00 Nitroglycerin 0.4 mg Q5MINP PRN SL 07/03/25 23:00 Morphine Sulfate 2 mg Q30M PRN IV 07/03/25 23:00 07/04/25 14:43 2 MG Albuterol 2.5 mg Q2HPRN PRN NEB 07/04/25 21:30 Ipratropium [place] 0.5 mg Q2HPRN PRN NEB 07/04/25 21:30 Albuterol 2.5 mg Q6HWA NEB 07/05/25 18:00 07/06/25 12:09 2.5 MG Ipratropium [place] 0.5 mg Q6HWA NEB 07/05/25 18:00 07/06/25 12:09 0.5 MG Methylprednisolone Sodium Succinate 40 mg DAILY IV 07/06/25 10:00 07/06/25 10:36 40 MG laboratory and microbiology Laboratory Tests 07/05/25 06:23 Test 07/05/25 06:23 Range/Units Serum Glucose 148 H 74-106 mg/dL Assessment/Plan impression asthma vocal cord dysfunction acute hypoxemia obesity events low oxygen requirements on room air improved significantly cont supportive care management suppl 02 nebs solumedrol with taper inc spirometry dvt proph remove arellano catheter okay to discharge from pulmonary standpoint Plan discussed with: Patient JORI ESCAMILLA MD Jul 06, 2025 12:52
[2025-07-06] MEDS: POLYETHYLENE GLYCOL 17 GM PWDR PO ONE (12:54)
[2025-07-06] MEDS: DOCUSATE SOD 100 MG CAP PO ONE (12:54)
[2025-07-06] MEDS ORDERED: BUDE1AER4 IN (14:13)
[2025-07-06] MEDS ORDERED: PRED20TA2 PO (14:13)
--- NOTE | 2025-07-06 15:39 | DVHPN2 ---
Reviewed: Care Plan, H&P, Labs, Medications Changes from previous H/P or p: No Changes General: Per HPI Objective Vitals Vital Signs Date Time Temp Pulse Resp B/P (MAP) Pulse Ox O2 Delivery O2 Flow Rate FiO2 07/06/25 13:00 98.8 95 12 117/80 (92) 94 98.8 07/06/25 08:20 Nasal Cannula* 3 32 Intake/Output Intake and Output 07/06/25 07:00 Intake Total 1150 ml Output Total 675 ml Balance 475 ml Intake Oral 1150 ml Output Urine Total 675 ml General Appearance: Alert, Oriented X3, Cooperative, No acute distress HEENT: Atraumatic, PERRLA Lungs: Clear to auscultation, Normal air movement Cardiovascular: Normal S1, Normal S2, Other (Sinus tachycardia) Musculoskeletal: Normal sensory function, Normal motor function Skin: Dry, Intact Psych/Mental Status: Mental status NL, Mood NL Medications Current Medications Medications Dose Ordered Sig/Jessica Route Start Time Stop Time Status Last Admin Dose Admin Gabapentin 300 mg BID PO 07/04/25 10:00 07/06/25 10:36 300 MG Montelukast Sodium 10 mg HS PO 07/04/25 22:00 07/06/25 10:36 10 MG Oxycodone/ Acetaminophen 2 tab Q8HP PRN PO 07/03/25 23:00 07/06/25 06:51 2 TAB Temazepam 15 mg QHSP PRN PO 07/03/25 23:00 07/05/25 22:15 15 MG Ondansetron HCl 4 mg Q4HP PRN IV 07/03/25 23:00 Acetaminophen 650 mg Q6HP PRN PO 07/03/25 23:00 Nitroglycerin 0.4 mg Q5MINP PRN SL 07/03/25 23:00 Morphine Sulfate 2 mg Q30M PRN IV 07/03/25 23:00 07/04/25 14:43 2 MG Albuterol 2.5 mg Q2HPRN PRN NEB 07/04/25 21:30 Ipratropium [place] 0.5 mg Q2HPRN PRN NEB 07/04/25 21:30 Albuterol 2.5 mg Q6HWA NEB 07/05/25 18:00 07/06/25 12:09 2.5 MG Ipratropium [place] 0.5 mg Q6HWA NEB 07/05/25 18:00 07/06/25 12:09 0.5 MG Methylprednisolone Sodium Succinate 40 mg DAILY IV 07/06/25 10:00 07/06/25 10:36 40 MG Laboratory Results Laboratory Tests 07/05/25 06:23 Microbiology Microbiology Date/Time Source Procedure Growth Status 07/05/25 11:35 Nose MRSA Screen - Final Complete Labs and/or images reviewed: Labs reviewed by me, Image(s) reviewed by me Assessment/Plan Assessment/Plan 44-year-old female presents for evaluation of shortness for breath. Patient reports a one day history of severe shortness for breath with wheezing. Patient used her med nebs and nebulizer at home without relief of the symptoms. No chest pain or palpitations. Past Medical History Asthma, COPD, thyroid, anxiety, anemia 07/06: Patient here for asthma exacerbation, off of oxygen now. No wheezing. We will check patient's ambulatory status, if ambulating well we will remove Vera. Patient takes Singulair and home has nebulizer treatments. Patient does not have any daily control inhaler, we will send Singulair at discharge. Patient to take prednisone 40 mg daily for 5 days. Patient has osteoporosis from history of high steroid use, taking chronic pain medication, we will give some laxative stool softeners docusate 100 b.i.d. and MiraLax 17 daily. Recommend patient get allergy specialists as she has been intubated and ventilator dependent multiple times. 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 - plan was to discharge with prescription of Symbicort, prednisone 5 days. But upon trying to remove Vera patient became severely dyspneic lightheaded. We will hold off discharge. We will get orthostatics, PT eval, continuing telemetry monitoring. Differential will include orthostatic versus PE versus cardiac cause, we will also rule out BPPV Diagnosis: -acute hypoxic respiratory failure -acute exacerbation of asthma -history of spina bifida -chronic pain syndrome with chronic opiate use -obesity -trachea dysplasia Plan discussed with: Patient My Orders Orders - EMILY FULTON MD Procedure Category Date Status Time Transfer Orders XFER 07/06/25 Transmitted 15:23 Date of Service: Jul 06, 2025 Billing Provider: EMILY FULTON MD Common Visit Codes: [id number] INP/OBS CARE(HIGH) EMILY FULTON MD Jul 06, 2025 15:39
[2025-07-06] MEDS: ALBUTEROL SULF 2.5 MG/0.5ML(0.5%) NEB SOLN ONE (17:49)
[2025-07-06] MEDS: IPRATROPIUM BROM 0.5 MG/2.5ML INH SOL ONE (17:49)
[2025-07-06] MEDS: SIMETHICONE 80 MG CHEWABLE TABLET ONE (20:11)
[2025-07-06] MEDS: SIMETHICONE 80 MG CHEWABLE TABLET PO ONE (20:13)
[2025-07-06] MEDS: DOCUSATE SOD 100 MG CAP PO SCH (21:07)
[2025-07-06] MEDS: CYCLOBENZAPRINE HCL 10 MG TAB ONE (22:20)
[2025-07-06] MEDS: CYCLOBENZAPRINE HCL 10 MG TAB PO SCH (22:20)
[2025-07-07] VITALS (18 sets, daily range): BP systolic 96–136; BP diastolic 52–92; PULSE 63–111; RESP 12–21; TEMP 97.5–98.8; O2SAT 93–100
[2025-07-07] MEDS: OXYCODONE W/ ACETAMINOPHEN 5/325MG TABLET PO PRN (00:52)
[2025-07-07] MEDS: ALBUTEROL SULF 2.5 MG/0.5ML(0.5%) NEB SOLN ONE (06:53)
[2025-07-07] MEDS: IPRATROPIUM BROM 0.5 MG/2.5ML INH SOL ONE (06:53)
[2025-07-07] MEDS ORDERED: POLYETHYLENE GLYCOL 17 GM PWDR PO PRN (10:00)
--- NOTE | 2025-07-07 10:14 | DVHPN2 ---
Reviewed: Care Plan, H&P, Labs, Medications Changes from previous H/P or p: No Changes General: Per HPI Objective Vitals Vital Signs Date Time Temp Pulse Resp B/P (MAP) Pulse Ox O2 Delivery O2 Flow Rate FiO2 07/07/25 08:00 94 16 96 Room Air* 0 21 07/07/25 05:00 98.4 110/73 (85) 98.4 Intake/Output Intake and Output 07/07/25 07:00 Intake Total 650 ml Output Total 1950 ml Balance -1300 ml Intake Oral 650 ml Output Urine Total 1950 ml General Appearance: Alert, Oriented X3, Cooperative, No acute distress HEENT: Atraumatic, PERRLA Lungs: Clear to auscultation, Normal air movement Cardiovascular: Normal S1, Normal S2, Other (Sinus tachycardia) Musculoskeletal: Normal sensory function, Normal motor function Skin: Dry, Intact Psych/Mental Status: Mental status NL, Mood NL Medications Current Medications Medications Dose Ordered Sig/Jessica Route Start Time Stop Time Status Last Admin Dose Admin Gabapentin 300 mg BID PO 07/04/25 10:00 07/06/25 21:06 300 MG Montelukast Sodium 10 mg HS PO 07/04/25 22:00 07/06/25 10:36 10 MG Temazepam 15 mg QHSP PRN PO 07/03/25 23:00 07/06/25 21:07 15 MG Ondansetron HCl 4 mg Q4HP PRN IV 07/03/25 23:00 Acetaminophen 650 mg Q6HP PRN PO 07/03/25 23:00 Nitroglycerin 0.4 mg Q5MINP PRN SL 07/03/25 23:00 Morphine Sulfate 2 mg Q30M PRN IV 07/03/25 23:00 07/04/25 14:43 2 MG Albuterol 2.5 mg Q2HPRN PRN NEB 07/04/25 21:30 Ipratropium [place] 0.5 mg Q2HPRN PRN NEB 07/04/25 21:30 Albuterol 2.5 mg Q6HWA NEB 07/05/25 18:00 07/07/25 07:07 2.5 MG Ipratropium [place] 0.5 mg Q6HWA NEB 07/05/25 18:00 07/07/25 07:07 0.5 MG Methylprednisolone Sodium Succinate 40 mg DAILY IV 07/06/25 10:00 07/06/25 10:36 40 MG Docusate Sodium 100 mg BID PO 07/06/25 22:00 07/06/25 21:07 100 MG Polyethylene Glycol 17 gm DAILYPRN PRN PO 07/07/25 10:00 07/14/25 09:59 Cyclobenzaprine HCl 10 mg BID PO 07/06/25 22:00 07/06/25 22:20 10 MG Lidocaine 1 patch DAILY TOP 07/07/25 10:00 Oxycodone/ Acetaminophen 2 tab Q6HPRN PRN PO 07/07/25 00:00 07/07/25 00:52 2 TAB Laboratory Results Laboratory Tests 07/05/25 06:23 Microbiology Microbiology Date/Time Source Procedure Growth Status 07/05/25 11:35 Nose MRSA Screen - Final Complete Labs and/or images reviewed: Labs reviewed by me, Image(s) reviewed by me Assessment/Plan Assessment/Plan 44-year-old female presents for evaluation of shortness for breath. Patient reports a one day history of severe shortness for breath with wheezing. Patient used her med nebs and nebulizer at home without relief of the symptoms. No chest pain or palpitations. Past Medical History Asthma, COPD, thyroid, anxiety, anemia 07/06: Patient here for asthma exacerbation, off of oxygen now. No wheezing. We will check patient's ambulatory status, if ambulating well we will remove Vera. Patient takes Singulair and home has nebulizer treatments. Patient does not have any daily control inhaler, we will send Singulair at discharge. Patient to take prednisone 40 mg daily for 5 days. Patient has osteoporosis from history of high steroid use, taking chronic pain medication, we will give some laxative stool softeners docusate 100 b.i.d. and MiraLax 17 daily. Recommend patient get allergy specialists as she has been intubated and ventilator dependent multiple times. Patient already has set up business control specialist with [facility], defer further ongoing management of complicated asthma to pulmonology. - plan was to discharge with prescription of Symbicort, prednisone 5 days. But upon trying to remove Vera patient became severely dyspneic lightheaded. We will hold off discharge. We will get orthostatics, PT eval, continuing telemetry monitoring. Differential will include orthostatic versus PE versus cardiac cause, we will also rule out BPPV 11/23: We will do another set of orthostatics today. Patient to see PT eval today. We will continue following. Diagnosis: -acute hypoxic respiratory failure -acute exacerbation of asthma -history of spina bifida -chronic pain syndrome with chronic opiate use -obesity -trachea dysplasia Plan discussed with: Patient My Orders Orders - EMILY FULTON MD Procedure Category Date Status Time Transfer Orders XFER 07/06/25 Transmitted 15:23 Docusate Sodium PHA 07/06/25 In Process Capsule (Colace 22:00 Polyethylene Glycol PHA 07/07/25 In Process 17g Powder (Miralax 10:00 Orthostatic Vital ORDERS 07/06/25 Transmitted Signs 16:32 Pt Request For Service PT 07/07/25 Logged 07:48 Date of Service: Jul 07, 2025 Billing Provider: EMILY FULTON MD Common Visit Codes: [id number] INP/OBS CARE(HIGH) EMILY FULTON MD Jul 07, 2025 10:14
[2025-07-07] MEDS: DOCUSATE SOD 100 MG CAP PO ONE (10:33)
[2025-07-07] MEDS: LIDOCAINE 5% TOPICAL PATCH TOP ONE (10:33)
[2025-07-07] MEDS: OXYCODONE W/ ACETAMINOPHEN 5/325MG TABLET ONE (10:33)
[2025-07-07] MEDS: CYCLOBENZAPRINE HCL 10 MG TAB ONE (10:33)
[2025-07-07] MEDS: LIDOCAINE 5% TOPICAL PATCH TOP SCH (10:38)
--- NOTE | 2025-07-07 15:01 | DVHPN2 ---
Progress Note - Dictate Date Seen: Jul 07, 2025 Has the PT tested + for MRSA If YES, has PT been informed?: No Medical Necessity Reason Pt with a Central, PICC or Fol: No vital signs Vital Sign Date Time Temp Pulse Resp B/P (MAP) Pulse Ox O2 Delivery O2 Flow Rate FiO2 07/07/25 12:32 82 16 100 07/07/25 12:30 98.1 122/89 (100) 98.1 07/07/25 08:00 Room Air* 0 21 Total Intake and Output 07/06/25 07/06/25 07/07/25 15:00 23:00 07:00 Intake Total 500 ml 150 ml Output Total 850 ml 1100 ml Balance -350 ml -950 ml medications Current Medications Medications Dose Ordered Sig/Jessica Route Start Time Stop Time Status Last Admin Dose Admin Gabapentin 300 mg BID PO 07/04/25 10:00 07/07/25 10:39 300 MG Montelukast Sodium 10 mg HS PO 07/04/25 22:00 07/06/25 10:36 10 MG Temazepam 15 mg QHSP PRN PO 07/03/25 23:00 07/06/25 21:07 15 MG Ondansetron HCl 4 mg Q4HP PRN IV 07/03/25 23:00 Acetaminophen 650 mg Q6HP PRN PO 07/03/25 23:00 Nitroglycerin 0.4 mg Q5MINP PRN SL 07/03/25 23:00 Morphine Sulfate 2 mg Q30M PRN IV 07/03/25 23:00 07/04/25 14:43 2 MG Albuterol 2.5 mg Q2HPRN PRN NEB 07/04/25 21:30 Ipratropium [place] 0.5 mg Q2HPRN PRN NEB 07/04/25 21:30 Albuterol 2.5 mg Q6HWA [facility] 07/05/25 18:00 07/07/25 12:22 2.5 MG Ipratropium [place] 0.5 mg Q6HWA [facility] 07/05/25 18:00 07/07/25 12:22 0.5 MG Methylprednisolone Sodium Succinate 40 mg DAILY IV 07/06/25 10:00 07/07/25 10:38 40 MG Docusate Sodium 100 mg BID PO 07/06/25 22:00 07/07/25 10:38 100 MG Polyethylene Glycol 17 gm DAILYPRN PRN PO 07/07/25 10:00 07/14/25 09:59 Cyclobenzaprine HCl 10 mg BID PO 07/06/25 22:00 07/07/25 10:39 10 MG Lidocaine 1 patch DAILY TOP 07/07/25 10:00 07/07/25 10:38 1 PATCH Oxycodone/ Acetaminophen 2 tab Q6HPRN PRN PO 07/07/25 00:00 07/07/25 11:03 2 TAB laboratory and microbiology Laboratory Tests 07/05/25 06:23 Test 07/05/25 06:23 Range/Units Serum Glucose 148 H 74-106 mg/dL Assessment/Plan impression asthma vocal cord dysfunction acute hypoxemia obesity events low oxygen requirements on room air no distress cont supportive care management suppl 02 nebs solumedrol with taper inc spirometry dvt proph remove arellano catheter okay to discharge from pulmonary standpoint Plan discussed with: Patient JORI ESCAMILLA MD Jul 07, 2025 15:01
[2025-07-08] VITALS (7 sets, daily range): BP systolic 107–117; BP diastolic 73–87; PULSE 61–99; RESP 17–19; TEMP 97.7–99.2; O2SAT 95–100
[2025-07-08 06:27] LABS: Hematocrit 36.5 % (36.0-46.0); Hemoglobin 12.2 g/dL (12.2-16.2); Mean Corpuscular Hemoglobin 28.3 pg (28.0-32.0); Mean Corpuscular Volume 84.5 fL (80.0-100.0); Nucleated Red Blood Cells % 0.1 %
[2025-07-08 06:43] LABS: Albumin 3.8 g/dL (3.2-4.8); Alkaline Phosphatase 67 U/L (46-116); Anion Gap 9 (5-15); BUN/Creatinine Ratio 15.1 (10.0-20.0); Blood Urea Nitrogen 11 mg/dL (9-23); Calcium 8.8 mg/dL (8.7-10.4); Carbon Dioxide 30 mmol/L (20-31); Chloride 104 mmol/L (98-107); Glucose 85 mg/dL (74-106); Potassium 3.8 mmol/L (3.5-5.1); Sodium 143 mmol/L (136-145); Total Protein 5.8 g/dL (5.7-8.2)
[2025-07-08 06:45] LABS: Alanine Aminotransferase 9 U/L (7-40); Bilirubin, Total 0.3 mg/dL (0.2-1.0)
--- NOTE | 2025-07-08 12:30 | DVHPN2 ---
Subjective Patient denies any symptoms at this time. Reviewed: Care Plan, H&P, Labs, Medications Changes from previous H/P or p: No Changes General: Per HPI Objective Vitals Vital Signs Date Time Temp Pulse Resp B/P (MAP) Pulse Ox O2 Delivery O2 Flow Rate FiO2 07/08/25 08:40 97.9 87 19 117/87 (97) 95 97.9 07/08/25 08:00 Room Air* 0 21 Intake/Output Intake and Output 07/08/25 07:00 Intake Total 1250 ml Output Total 750 ml Balance 500 ml Intake Oral 1250 ml Output Urine Total 750 ml # Voids 4 General Appearance: Alert, Oriented X3, Cooperative, No acute distress HEENT: Atraumatic, PERRLA Lungs: Clear to auscultation, Normal air movement Cardiovascular: Normal S1, Normal S2, Other (Sinus tachycardia) Musculoskeletal: Normal sensory function, Normal motor function Skin: Dry, Intact Psych/Mental Status: Mental status NL, Mood NL Medications Current Medications Medications Dose Ordered Sig/Jessica Route Start Time Stop Time Status Last Admin Dose Admin Gabapentin 300 mg BID PO 07/04/25 10:00 07/08/25 11:29 300 MG Montelukast Sodium 10 mg HS PO 07/04/25 22:00 07/07/25 21:29 10 MG Temazepam 15 mg QHSP PRN PO 07/03/25 23:00 07/07/25 21:29 15 MG Ondansetron HCl 4 mg Q4HP PRN IV 07/03/25 23:00 Acetaminophen 650 mg Q6HP PRN PO 07/03/25 23:00 Nitroglycerin 0.4 mg Q5MINP PRN SL 07/03/25 23:00 Morphine Sulfate 2 mg Q30M PRN IV 07/03/25 23:00 07/04/25 14:43 2 MG Albuterol 2.5 mg Q2HPRN PRN NEB 07/04/25 21:30 Ipratropium [place] 0.5 mg Q2HPRN PRN NEB 07/04/25 21:30 Albuterol 2.5 mg Q6HWA NEB 07/05/25 18:00 07/08/25 06:57 2.5 MG Ipratropium [place] 0.5 mg Q6HWA NEB 07/05/25 18:00 07/08/25 06:57 0.5 MG Methylprednisolone Sodium Succinate 40 mg DAILY IV 07/06/25 10:00 07/08/25 11:29 40 MG Docusate Sodium 100 mg BID PO 07/06/25 22:00 07/08/25 11:29 100 MG Polyethylene Glycol 17 gm DAILYPRN PRN PO 07/07/25 10:00 07/14/25 09:59 Cyclobenzaprine HCl 10 mg BID PO 07/06/25 22:00 07/08/25 11:29 10 MG Lidocaine 1 patch DAILY TOP 07/07/25 10:00 07/07/25 10:38 1 PATCH Oxycodone/ Acetaminophen 2 tab Q6HPRN PRN PO 07/07/25 00:00 07/08/25 12:06 2 TAB Laboratory Results Laboratory Tests 07/08/25 05:58 Chemistry Test 07/08/25 05:58 Albumin 3.8 g/dL (3.2-4.8) Calcium Level 8.8 mg/dL (8.7-10.4) Total Protein 5.8 g/dL (5.7-8.2) LFT Test 07/08/25 05:58 Alanine Aminotransferase (ALT) 9 U/L (7-40) Alkaline Phosphatase 67 U/L (46-116) Aspartate Amino Transferase (AST) 9 U/L (13-40) L Total Bilirubin 0.3 mg/dL (0.2-1.0) Microbiology Microbiology Date/Time Source Procedure Growth Status 07/05/25 11:35 Nose MRSA Screen - Final Complete Labs and/or images reviewed: Labs reviewed by me, Image(s) reviewed by me Assessment/Plan Assessment/Plan Impression: -acute hypoxic respiratory failure -acute exacerbation of asthma -history of spina bifida -chronic pain syndrome with chronic opiate use -obesity -trachea dysplasia Plan: Patient was discharged on 07/06/2025. Patient was not sent home given respiratory symptoms. Patient is currently on room air with no adventitious lung sounds in his ambulating without any noted dyspnea. Patient will be discharged home on prescribed medications by Dr. Sanabria, Symbicort and prednisone 40 mg p.o. daily. Total time spent with patient discussing and formulating plan of care: 35 minutes. This medical document was created using an electronic medical record system with [employer] dictation system. Although this document has been carefully reviewed, there may still be some phonetic and typographical errors. These areas are purely typographical due to imperfections of the software programs, and do not reflect any compromise in the patient's medical care. Plan discussed with: Patient, Other (RN) My Orders Orders - TINO SCHULTE NP Procedure Category Date Status Time Discharge DISCHARGE 07/08/25 Transmitted 12:26 Date of Service: Jul 08, 2025 Billing Provider: TINO SCHULTE NP Common Visit Codes: [id number] INP/OBS CARE(HIGH) TINO SCHULTE NP Jul 08, 2025 12:30
== END 2025-07-08 15:12 | disposition home or self-care (01) | DRG 133 ==
LOC: ER 15:18 → EDBD 15:18 → OVERFLOW 22:50 → ICU CENTRL 07-05 01:33 → DOU 07-05 11:16 → EAST 07-07 01:20 → TELE-EAST 07-07 02:31
PROVIDERS: ADMIT Nurse Practitioner Acute Care; ATTEND Nurse Practitioner Acute Care
PROC: 5A09357 Assistance with Respiratory Ventilation, Less than 24 Consecutive Hours, Continuous Positive Airway Pressure (ICD-10-PCS; principal; 2025-07-03)
PROC: 05HA33Z Insertion of Infusion Device into Left Brachial Vein, Percutaneous Approach (ICD-10-PCS; 2025-07-03)
PROC: B54NZZA Ultrasonography of Left Upper Extremity Veins, Guidance (ICD-10-PCS; 2025-07-03)
PROC: 5A09357 Assistance with Respiratory Ventilation, Less than 24 Consecutive Hours, Continuous Positive Airway Pressure (ICD-10-PCS; 2025-07-04)
DX: J96.21 Acute and chronic respiratory failure with hypoxia (principal); R65.11 Systemic inflammatory response syndrome (SIRS) of non-infectious origin with acute organ dysfunction; J45.51 Severe persistent asthma with (acute) exacerbation; E66.9 Obesity, unspecified; G89.4 Chronic pain syndrome; E87.6 Hypokalemia; Q05.9 Spina bifida, unspecified; J38.3 Other diseases of vocal cords; F41.9 Anxiety disorder, unspecified; M81.8 Other osteoporosis without current pathological fracture; Z90.49 Acquired absence of other specified parts of digestive tract; Z88.6 Allergy status to analgesic agent; Z79.899 Other long term (current) drug therapy; Z79.891 Long term (current) use of opiate analgesic; Z82.3 Family history of stroke; Z82.49 Family history of ischemic heart disease and other diseases of the circulatory system; Z83.3 Family history of diabetes mellitus; Z80.8 Family history of malignant neoplasm of other organs or systems; Z68.31 Body mass index [BMI] 31.0-31.9, adult
CPT/HCPCS: 36415; 36600; 71045; 80048; 80053; 82805; 84484; 85025; 87081; 93005; 94640; 94644; 94660; 96361; 96365; 96372; 96375; 97116; 97163; 97530; G0378; J1885; J2250

== ENCOUNTER 2025-07-22 18:21 | Inpatient (IN) | payer MEDICAID ==
[2025-07-21] MEDS: CEFEPIME 1GM/50ML 50 ML IV ONE (23:21)
[~2025-07-22] VITALS: Ht 170.2 cm; Wt 88.6 kg
[2025-07-22] MEDS: VANCOMYCIN 1GM/250ML KIT 250 ML IV ONE
[~2025-07-22 18:21] MED LIST changes: -AZIT-185 PO; -AZIT500T66 PO; -AZITTAB PO; +BUDE1AER4 IN; -METH4PAK PO
[2025-07-22 18:30] VITALS: PULSE 103; RESP 24; O2SAT 100
[2025-07-22] MEDS: methylPREDNISolone SOD SUCC 125 MG/2 ML VL IV ONE (18:32)
--- NOTE | 2025-07-22 18:46 | ECG ---
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
--- NOTE | 2025-07-22 18:50 | ED.PDOC ---
SOB-HPI HPI Comments HPI: This is a 44 year old female BIBA presenting to the ED with chief complaint of SOB. EMS reports patient started to experience SOB with associated throat closure at about 1730 today. EMS relays that prior to arriving on scene, patient self-administered an Epi-Pen. EMS states that the patient had an O2 saturation of 92% on RA, improving to 100% when placed on CPAP. EMS notes they provided 0.3mg of Epinephrine, 2g of Magnesium, 50mg of Benadryl IM, and 1 DuoNeb breathing treatment en route to the ED. Patient notes she has history of intubations and laryngospasms. Patient denies any chest pain, dizziness, fever, chills, or headache. Past Medical History: Laryngospasms, Asthma, Anemia, Koki's Disease Past Surgical History: Appendectomy, Cholecystectomy, , Tonsillectomy Social History: Denies smoking, ETOH, or drug use. Medications: Reviewed Allergies: Ibuprofen, Levothyroxine ' WAGGONER: Reported LARYNGEOSPSM, NO WHEEZ, TACHY, EPI. SOME IMPROVEMENT. HPI: Poor Historian. REVIEW OF SYSTEMS: CONSTITUTIONAL: Denies acute: fever, diaphoresis, chills, HEAD: Denies acute: headache, photophobia Eyes: Denies acute: Double vision, vision loss, eye pain, eye discharge. EARS: Denies acute: tinnitus, hearing loss, ear discharge, ear pain, THROAT: Denies acute: sore throat, swelling, difficulty swallowing , pain with swallowing, change in voice. NECK: Denies acute: neck pain, neck swelling, stiff neck. HEART: Denies acute : chest pain, palpitations, LUNGS: Denies acute: wheezing, cough, hemoptysis ABDOMEN: Denies acute: abdominal pain, Nausea, Vomiting, diarrhea, melena , hematemesis, hematochezia SKIN: Denies acute: rash, redness, lesions, itchiness. EXTREMITIES: Denies acute: calf pain, numbness, tingling, weakness, denies pain in extremity. Denies acute: Low back pain. Neuro: Denies acute: focal neurological deficit, motor or sensory focal neurological deficit, tremors, seizure like activity, confusion, dizziness, change in mental status, loss of bowel or bladder function, cauda equina like symptoms. : Denies acute: dysuria, hematuria, flank pain, increase in urinary frequency. PSYCH: Denies acute: hallucination, suicidal ideation, homicidal ideation. FEMALE: Denies acute: abnormal vaginal bleeding, foul odor, unusual discharge. PHYSICAL EXAM: General: -----moderate---acute distress, awake and alert. Head: normocephalic, atraumatic. No raccoon's eyes, no benton sign. Neck: supple, trachea is midline, no swelling. Throat: Normal phonation. Eyes:, no erythema, no purulent discharge, no proptosis, no icterus. Heart: regular tachycardic, no significant murmur appreciated. Lungs: Moderate respiratory distress, No wheezing, no rhonchi, no crackles. No stridors Clear to auscultation bilaterally. Abdomen: non tender to palpation, non distended, soft, no guarding, no rebound, + bowel sounds. Neuro: Awake, Alert, oriented to name, self, situation, follows commands GCS=15. Speech is normal. Skin: no petechia, no purpura, no cyanosis, non-pale, not jaundice. Lower extremities: --no - Pitting edema no deformity, no focal swelling, no calf TTP. Makes eye contact. moves all four extremities. Face: no apparent facial droop. ED COURSE: DISCLAIMER: This medical document was created using an electronic medical record system with voice recognition software and computerized dictation system. Although this document has been carefully reviewed, there might still be some phonetic and typographical errors. Occasional wrong-word or "sound-alike" substitutions may h ave occurred due to the inherent limitations of voice recognition software. These areas are purely typographical due to imperfections of the software programs and do not reflect any compromise in the patient's medical care. Please read the chart carefully and recognize, using context, where these substitutions have occurred. Chief Complaint: Shortness of Breath Time Seen by MD: 18:45 Primary Care Provider: UNKNOWN Reviewed notes: Medications, Allergies Information Source: Patient, Emergency Med Personnel Mode of Arrival: EMS Severity: Moderate EKG EKG : Pulse Rate (adult): 120 [place]: Normal Cardiac Rhythm: ST Block: None Hypertrophy: None ST: Normal Was a procedure done? Was a procedure done?: No Differential Dx Differential Diagnosis: Other (DDx include ACS, unstable angina, anxiety, PE, pneumothroax, neoplasm, cardiac ischemia, COPD, asthma, CHF, pleural effusion, tobacco abuse, pneumonia, hypoxia, hypercapnia, anemia., infection/sepsis., pulmonary edema. Asthma, Cardiac tamponade, infection.) X-Ray, Labs, Meds, VS Vital Signs Date Time Temp Pulse Resp B/P (MAP) Pulse Ox O2 Delivery O2 Flow Rate FiO2 07/22/25 19:11 98 18 100 Bi-Pap+ 12 50 50 07/22/25 19:10 98.4 97 18 113/76 (88) 100 98.4 07/22/25 19:00 94 07/22/25 18:50 98.5 103 24 135/92 (106) 100 98.5 07/22/25 18:50 120 07/22/25 18:32 113 135/92 Facial BiPAP Mask 50 07/22/25 18:30 103 24 100 Bi-Pap+ 12 50 50 07/22/25 18:26 120 07/22/25 18:26 98.3 130 19 144/100 100 98.3 Lab Test 07/22/25 18:46 Range/Units White Blood Count 16.6 H 4.4-10.8 10^3/uL Red Blood Count 4.63 4.0-5.20 10^6/uL Hemoglobin 13.0 12.2-16.2 g/dL Hematocrit 39.2 36.0-46.0 % Mean Corpuscular Volume 84.6 80.0-100.0 fL Mean Corpuscular Hemoglobin 28.0 28.0-32.0 pg Mean Corpuscular Hemoglobin Concent 33.1 32.0-36.0 g/dL Red Cell Distribution Width 14.6 H 11.8-14.3 % Platelet Count 307 140-450 10^3/uL Mean Platelet Volume 8.1 6.9-10.8 fL Neutrophils (%) (Auto) 51.6 37.0-80.0 % Lymphocytes (%) (Auto) 41.8 10.0-50.0 % Monocytes (%) (Auto) 5.3 0.0-12.0 % Eosinophils (%) (Auto) 0.9 0.0-7.0 % Basophils (%) (Auto) 0.4 0.0-2.0 % Neutrophils # (Auto) 8.5 1.6-8.6 10 ^3/uL Lymphocytes # (Auto) 6.9 H 0.4-5.4 10 ^3/uL Monocytes # (Auto) 0.9 0-1.3 10 ^3/uL Eosinophils # (Auto) 0.2 0-0.8 10 ^3/uL Basophils # (Auto) 0.1 0-0.2 10 ^3/uL Nucleated Red Blood Cells 0.1 % Sodium Level 141 136-145 mmol/L Potassium Level 3.3 L 3.5-5.1 mmol/L Chloride Level 103 98-107 mmol/L Carbon Dioxide Level 23 20-31 mmol/L Anion Gap 15 5-15 Blood Urea Nitrogen 6 L 9-23 mg/dL Creatinine 0.70 0.550-1.02 mg/dL Glomerular Filtration Rate Calc 110 >90 mL/min BUN/Creatinine Ratio 8.6 L 10.0-20.0 Serum Glucose 156 H 74-106 mg/dL Calcium Level 9.3 8.7-10.4 mg/dL Troponin I High Sensitivity < 3 L </=34 ng/L Current Medications Medications (Trade) Dose Ordered Sig/Jessica Route Start Time Stop Time Status Last Admin Methylprednisolone Sodium Succinate (Solu Medrol) 250 mg ONCE ONCE IV 07/22/25 18:30 07/22/25 18:31 DC 07/22/25 18:32 Albuterol (Ventolin Medneb) 2.5 mg ONCE ONCE NEB 07/22/25 19:15 07/22/25 19:16 DC 07/22/25 19:41 Ipratropium [place] (Atrovent Medneb) 0.5 mg ONCE ONCE NEB 07/22/25 19:15 07/22/25 19:16 DC 07/22/25 19:[address] [address] Ph: [phone] DIAGNOSTIC IMAGING Diagnostic Imaging Report : [id number] Signed PATIENT: RUPA WAGGONER: [id number] UNIT: [id number] : 1980 LOC: OVERFLOW ROOM / BED: [address] [place] [address] AGE / SEX: 44 / F ADM STATUS: ADM IN SERVICE ORDERING PHYSICIAN: SHAHRAM ANDRES DO PROCEDURE(s): CXR1 - CHEST XRAY 1 VIEW REASON: SOB ORDER NUMBER(s): [id number], ACCESSION NUMBER(s): [id number] CHEST RADIOGRAPH Indication: SOB Technique: Single frontal view of the chest was obtained. Comparison: XY CHEST XRAY 1 VIEW on DOS: 07/03/25 Findings: No focal consolidation. No significant pleural effusion. No pneumothorax. Stable cardiomediastinal silhouette. IMPRESSION: No acute pulmonary process. ATED BY: AKBAR MONTEJO MD DICTATED DATE/TIME: 07/22/251933 SIGNED BY: AKBAR MONTEJO MD SIGNED DATE/TIME: 07/22/251933 CC: Time of 1ST Reevaluation: 03:54 Reevaluation 1ST: Improved Patient Education/Counseling: Diagnosis, Treatment Family Education/Counseling: Other Comments MDM: patient presented with the above HPI.--respiratory distress---workup was initiated. patient was found with the above mentioned diagnosis. the following medications were ordered: please refer to order lists of meds and tests obtained by myself Dr. Andres. Patient ED course and VS have been stabilized. Patient has been reassessed in the ED and remained in a stable condition. Pertinent incidental findings were discussed with the patient and/or family. Patient/family voices understanding and is agreeable with plan. Patient has been observed in the ED adequate length of time to insure improvement/stability. Escalation of care considered: Consideration of escalation to observation or admission Patient meets sepsis criteria, sepsis protocol was initiated. Patient was given steroids and DuoNeb treatment. Patient was ADMITTED to the medicine team for further evaluation and treatment of their presentation. All the reports of any imaging studies that were ordered by myself were reviewed by myself. Departure 1 Departure Time of Disposition: 23:00 Impression: Primary Impression: Acute respiratory distress Additional Impressions: History of laryngeal spasm Sepsis Disposition: ADMITTED INPATIENT Admit to: [facility] Condition: Guarded Discharged With: Self Critical Care Note Critical Care Time?: Yes (35 min-critical care time only) Critical care comment: Due to a high probability of clinically significant, life threatening deterioration, the patient required my highest level of preparedness to i ntervene emergently and I personally spent this critical care time directly and personally managing the patient. This critical care time included obtaining a history; examining the patient; pulse oximetry; ordering and review of studies; arranging urgent treatment with development of a management plan; evaluation of patient's response to treatment; frequent reassessment; and, discussions with other providers. This critical care time was performed to assess and manage the high probability of imminent, life-threatening deterioration that could result in multi-organ failure. It was exclusive of separately billable procedures and treating other patients and teaching time. Please see my other sections and the rest of the note for further information on patient assessment and treatment. I personally scribed for SHAHRAM ANDRES DO ([email or web address]) on 07/22/25 at 18:50. Electronically submitted by Juan Carlos Funk ([email or web address]). I personally scribed for SHAHRAM ANDRES DO ([email or web address]) on 07/22/25 at 18:50. Electronically submitted by Juan Carlos Funk ([email or web address]). I personally scribed for SHAHRAM ANDRES DO ([email or web address]) on 07/22/25 at 21:44. Electronically submitted by Juan Carlos Funk ([email or web address]). SHAHRAM ANDRES DO Jul 22, 2025 18:50
[2025-07-22 19:00] LABS: Hematocrit 39.2 % (36.0-46.0); Hemoglobin 13.0 g/dL (12.2-16.2); Mean Corpuscular Hemoglobin 28.0 pg (28.0-32.0); Mean Corpuscular Volume 84.6 fL (80.0-100.0); Nucleated Red Blood Cells % 0.1 %
[2025-07-22 19:11] VITALS: PULSE 98; RESP 18; O2SAT 100
[2025-07-22 19:12] LABS: Chloride 103 mmol/L (98-107); Sodium 141 mmol/L (136-145)
[2025-07-22 19:13] LABS: Anion Gap 15 (5-15); Calcium 9.3 mg/dL (8.7-10.4); Carbon Dioxide 23 mmol/L (20-31)
[2025-07-22 19:18] LABS: Glucose 156 mg/dL (74-106); Potassium 3.3 mmol/L (3.5-5.1)
[2025-07-22 19:23] LABS: BUN/Creatinine Ratio 8.6 (10.0-20.0); Blood Urea Nitrogen 6 mg/dL (9-23)
[2025-07-22] MEDS ORDERED: ONDANSETRON HCL 4 MG/2 ML VIAL IV PRN (19:30)
[2025-07-22] MEDS ORDERED: MORPHINE SULFATE INJ 2 MG/ml SYRG IV PRN (19:30)
[2025-07-22] MEDS ORDERED: NITROGLYCERIN 0.4 MG SL TAB SL PRN (19:30)
[2025-07-22] MEDS ORDERED: POTASSIUM CHL 20 Meq TABLET PO ONE (19:30)
[2025-07-22] MEDS ORDERED: HYDROcodone-ACET 5/325MG TAB PO PRN (19:30)
[2025-07-22] MEDS ORDERED: ACETAMINOPHEN 325 MG TAB PO PRN (19:30)
--- NOTE | 2025-07-22 19:36 | DVH ---
CHEST RADIOGRAPH Indication: SOB Technique: Single frontal view of the chest was obtained. Comparison: XY CHEST XRAY 1 VIEW on DOS: 07/03/25 Findings: No focal consolidation. No significant pleural effusion. No pneumothorax. Stable cardiomediastinal silhouette. IMPRESSION: No acute pulmonary process.
[2025-07-22] MEDS: IPRATROPIUM BROM 0.5 MG/2.5ML INH SOL NEB ONE (19:38)
[2025-07-22] MEDS: ALBUTEROL SULF 2.5 MG/0.5ML(0.5%) NEB SOLN NEB ONE (19:41)
[2025-07-22 19:57] LABS: Base Excess 0.2 mmol/L (-2.0-3.0)
[2025-07-22] MEDS: BUDESONIDE (INHALATION) 0.5 MG/2 ML NEB NEB SCH (20:22)
[2025-07-22 20:26] VITALS: BP 122/80; PULSE 102; RESP 15; TEMP 98.6; O2SAT 99
[2025-07-22 20:55] LABS: Lactic Acid w/Reflex 3.1 mmol/L (0.4-2.0)
[2025-07-22] MEDS: POTASSIUM EFFERVESENT TAB 25 MEQ PO ONE (21:04)
[2025-07-22] MEDS: MONTELUKAST SODIUM 10 MG TAB PO SCH (22:01)
[2025-07-22 22:20] VITALS: BP 113/74; PULSE 90; O2SAT 99
[2025-07-22] MEDS: LACTATED RINGER'S 1,800 ML IV ONE (23:22)
[2025-07-22] MEDS: SODIUM CHLORIDE 0.9% 1,800 ML IV ONE (23:22)
[2025-07-22 23:39] LABS: Urine Protein, UAD Negative (Negative)
[2025-07-22 23:42] VITALS: BP 121/103; PULSE 86; O2SAT 99
[2025-07-22 23:56] LABS: INR 0.98 (0.9-1.15); Partial Thromboplastin Time 26.8 SEC (24.5-34.5); Prothrombin Time 10.4 sec (9.3-11.8)
[2025-07-23] VITALS (11 sets, daily range): BP systolic 107–122; BP diastolic 71–78; PULSE 63–108; RESP 14–18; TEMP 97.4; O2SAT 93–100
[2025-07-23] MEDS: OXYCODONE W/ ACETAMINOPHEN 5/325MG TABLET PO PRN ×2 (00:18→15:19)
--- NOTE | 2025-07-23 00:22 | DVHHP2 ---
History of Present Illness Reason for Visit: Shortness for breath History of Present Illness 44-year-old female presents for evaluation of shortness for breath. Patient endorses a one day history of worsening shortness for breath not being relieved with her inhaler and nebulizer at home. On arrival patient was saturating in t he low 90s out to be placed on CPAP. Currently denies fever or chills. No chest pain. No other acute complaints reported. 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 Allergies: Coded Allergies: Ibuprofen (Verified Allergy, Unknown, 04/25/23) Levothyroxine (Verified Allergy, Unknown, 04/25/23) Medications Current Medications Medications Dose Ordered Sig/Jessica Route Start Time Stop Time Status Last Admin Dose Admin Methylprednisolone Sodium Succinate 40 mg DAILY IV 07/23/25 10:00 Montelukast Sodium 10 mg HS PO 07/22/25 22:00 07/22/25 22:01 10 MG Budesonide 0.5 mg BID NEB 07/22/25 22:00 07/22/25 20:22 0.5 MG Albuterol 2.5 mg Q6HPRN PRN NEB 07/22/25 19:30 Ipratropium Gideon 0.5 mg Q6HPRN PRN NEB 07/22/25 19:30 Temazepam 15 mg QHSP PRN PO 07/22/25 19:30 Ondansetron HCl 4 mg Q4HP PRN IV 07/22/25 19:30 Acetaminophen 650 mg Q6HP PRN PO 07/22/25 19:30 Nitroglycerin 0.4 mg Q5MINP PRN SL 07/22/25 19:30 Morphine Sulfate 2 mg Q30M PRN IV 07/22/25 19:30 Oxycodone/ Acetaminophen 2 tab Q8HP PRN PO 07/22/25 22:15 07/23/25 00:18 2 TAB Ceftriaxone Sodium 50 ml @ 100 mls/hr DAILY@09 IV 07/23/25 09:00 Exam Vital Signs Vital Signs Date Time Temp Pulse Resp B/P (MAP) Pulse Ox O2 Delivery O2 Flow Rate FiO2 07/23/25 00:00 78 07/22/25 23:42 121/103 99 Facial BiPAP Mask 35 07/22/25 23:02 20 07/22/25 20:26 98.6 98.6 07/22/25 19:11 12 Exam Gen: 44-year-old female in mild distress. Skin: Warm, dry, normal color and texture, no rash. HEENT: Normocephalic atraumatic, mucous membranes moist and pink. Neck: Cervical and supraclavicular nodes normal without enlargement, trachea is midline, thyroid gland is normal without masses. Pulmonary: Bilateral wheeze Cardiac: Regular rate and rhythm. No murmur Abdomen: Soft, nontender, nondistended, bowel sounds present all 4 quadrants, no guarding, no rigidity, no organomegaly. Extremities: No cyanosis, clubbing, no edema Neuro: Cranial nerves II through XII grossly intact, normal affect and speech, no focal motor deficits. Labs/Xrays ORDERING PHYSICIAN: SHAHRAM ANDRES DO PROCEDURE(s): CXR1 - CHEST XRAY 1 VIEW REASON: SOB ORDER NUMBER(s): [id number], ACCESSION NUMBER(s): [id number] CHEST RADIOGRAPH Indication: SOB Technique: Single frontal view of the chest was obtained. Comparison: XY CHEST XRAY 1 VIEW on DOS: 07/03/25 Findings: No focal consolidation. No significant pleural effusion. No pneumothorax. Stable cardiomediastinal silhouette. IMPRESSION: No acute pulmonary process. Labs Test 07/22/25 23:10 07/22/25 22:52 07/22/25 21:53 07/22/25 19:30 Range/Units Prothrombin Time 10.4 9.3-11.8 sec Prothrombin Time INR 0.98 0.9-1.15 Activated Partial Thromboplast Time 26.8 24.5-34.5 SEC Urine Color Colorless Yellow Urine Clarity Clear Clear Urine pH 6.0 5.0-9.0 Urine Specific [place] 1.009 1.001-1.035 Urine Protein Negative Negative Urine Ketones 1+ H Negative Urine Blood Negative Negative /uL Urine Nitrite Negative Negative Urine Bilirubin Negative Negative Urine Urobilinogen Normal Negative mg/dL Urine Leukocyte Esterase Negative Negative /uL Urine RBC None seen 0 - 4 /hpf Urine Microscopic WBC < 1 0-5 /HPF Urine Squamous Epithelial Cells Few <5 /hpf Urine Bacteria None seen None Seen /hpf Urine Glucose Normal Normal mg/dL Lactic Acid Level 4.7 *H 0.4-2.0 mmol/L Troponin I High Sensitivity < 3 L </=34 ng/L Blood Gas Specimen Type Arterial Blood Gas Sample Site Left radial Blood Gas Patient Temperature 37.0 Arterial Blood Date Drawn [id number] Arterial Blood pH 7.503 H 7.350-7.450 Arterial Blood Partial Pressure CO2 29.0 L 32.0-45.0 mmHg Arterial Blood Partial Pressure O2 240.0 H 83.0-108.0 mmHg Arterial Blood HCO3 22.3 21.0-28.0 mmol/L Arterial Blood Oxygen Saturation 99.8 H 94.0-98.0 % Arterial Blood Base Excess 0.2 -2.0-3.0 mmol/L Arterial Blood Oxyhemoglobin 98.3 H 94.0-98.0 % Arterial Blood Carboxyhemoglobin 0.9 0.5-1.5 % Arterial Blood Methemoglobin 0.6 0.0-1.5 % Arterial Blood Deoxyhemoglobin 0.2 0.0-5.0 % Giacomo Test Yes Blood Gas Total Hemoglobin 13.70 12.0-16.0 g/dL Blood Gas Set Respiration Rate 12.0 Blood Gas Modality Mask - bipap FiO2 % 50.0 Blood Gas EPAP 5 Blood Gas IPAP 12 Test 07/22/25 18:46 Range/Units White Blood Count 16.6 H 4.4-10.8 10^3/uL Red Blood Count 4.63 4.0-5.20 10^6/uL Hemoglobin 13.0 12.2-16.2 g/dL Hematocrit 39.2 36.0-46.0 % Mean Corpuscular Volume 84.6 80.0-100.0 fL Mean Corpuscular Hemoglobin 28.0 28.0-32.0 pg Mean Corpuscular Hemoglobin Concent 33.1 32.0-36.0 g/dL Red Cell Distribution Width 14.6 H 11.8-14.3 % Platelet Count 307 140-450 10^3/uL Mean Platelet Volume 8.1 6.9-10.8 fL Neutrophils (%) (Auto) 51.6 37.0-80.0 % Lymphocytes (%) (Auto) 41.8 10.0-50.0 % Monocytes (%) (Auto) 5.3 0.0-12.0 % Eosinophils (%) (Auto) 0.9 0.0-7.0 % Basophils (%) (Auto) 0.4 0.0-2.0 % Neutrophils # (Auto) 8.5 1.6-8.6 10 ^3/uL Lymphocytes # (Auto) 6.9 H 0.4-5.4 10 ^3/uL Monocytes # (Auto) 0.9 0-1.3 10 ^3/uL Eosinophils # (Auto) 0.2 0-0.8 10 ^3/uL Basophils # (Auto) 0.1 0-0.2 10 ^3/uL Nucleated Red Blood Cells 0.1 % Sodium Level 141 136-145 mmol/L Potassium Level 3.3 L 3.5-5.1 mmol/L Chloride Level 103 98-107 mmol/L Carbon Dioxide Level 23 20-31 mmol/L Anion Gap 15 5-15 Blood Urea Nitrogen 6 L 9-23 mg/dL Creatinine 0.70 0.550-1.02 mg/dL Glomerular Filtration Rate Calc 110 >90 mL/min BUN/Creatinine Ratio 8.6 L 10.0-20.0 Serum Glucose 156 H 74-106 mg/dL Calcium Level 9.3 8.7-10.4 mg/dL SEPSIS Sepsis Screen Date sepsis recognized/suspect: Jul 22, 2025 Time Sepsis recognized/suspect: 1856 Recent Procedure: No On Antibiotic Therapy: No Respiratory Rate >20: No Heart Rate >90: No Temp<36 C (96.8 F) or >38.3 C: No SBP <90 or MAP <65 mmHG: No New Acute Mental Status Change: No Is the patient on CPAP, BIPAP,: No Physician Orders Chest Xray 1 View (07/22/25 18:25) BIPAP (07/22/25 19:12) Abg W/ Co-Ox (07/22/25 20:00) Methylprednisolone Sod Succ (Solu Medrol (07/23/25 10:00) Montelukast Tablet (Singulair Tablet) (07/22/25 22:00) Budesonide (Inhalation) (Pulmicort) (07/22/25 22:00) Albuterol Medneb (Ventolin Medneb) (07/22/25 19:30) Ipratropium Medneb (Atrovent Medneb) (07/22/25 19:30) Basic Metabolic Panel (07/23/25 04:00) Admit (07/22/25 19:28) Temazepam (Restoril) (07/22/25 19:30) Ondansetron Hcl (Zofran) (07/22/25 19:30) Complete Blood Count (07/23/25 04:00) Cardiac Diet-2gna,Lofat,Lochol (07/23/25 Breakfast) Condition: Fair (07/22/25:) Acetaminophen Tablet (Tylenol Tablet) (07/22/25:30) Bedrest With Bathroom Privileg (07/22/25:28) Nitroglycerin Sublingual (Ntrostat Subli (07/22/25:30) Morphine Sulfate Injection (07/22/25:) Stat Ekg For Chest Pain (07/22/25:28) Notify Md Of Changes From Base (07/22/25:28) Ict Educator For 24 Hours (07/22/25:28) Emergency Dysrhythmia Protocol (07/22/25:) Rhythm Strips Once Every Shift (07/22/25:28) Oxygen By Nasal Cannula (07/22/25:28) Oxycodone W/ Acet 5/325mg Tab (Percocet (07/22/25 22:15) Accucheck (07/22/25 22:59) Blood Culture (07/22/25 22:59) Lactic Acid W/ Reflex Order (07/23/25 00:00) Cefepime 1gm/50ml (Maxipime 1gm/50ml) (07/22/25 23:00) Notify Md If Map <65 Or Bp<90 (07/22/25 22:59) If Map<65 Start Vasopressor (07/22/25 22:59) Sepsis Reassesment After Fluid (07/22/25 23:59) Ceftriaxone 1gm/50ml (Rocephin) (07/23/25 09:00) Vital Signs Date Time Temp Pulse Resp B/P (MAP) Pulse Ox O2 Delivery O2 Flow Rate FiO2 07/23/25 00:00 78 07/22/25 23:42 86 121/103 99 Facial BiPAP Mask 35 07/22/25 23:02 93 20 121/103 (109) 99 07/22/25 22:20 90 113/74 99 Facial BiPAP Mask 35 07/22/25 21:10 84 25 113/74 (87) 99 07/22/25 20:26 98.6 102 15 122/80 99 40 98.6 07/22/25 20:22 102 122/80 Facial BiPAP Mask 40 07/22/25 20:00 85 07/22/25 19:11 98 18 100 Bi-Pap+ 12 50 50 07/22/25 19:10 98.4 97 18 113/76 (88) 100 98.4 07/22/25 19:00 94 07/22/25 18:50 98.5 103 24 135/92 (106) 100 98.5 07/22/25 18:50 120 07/22/25 18:32 113 135/92 Facial BiPAP Mask 50 07/22/25 18:30 103 24 100 Bi-Pap+ 12 50 50 07/22/25 18:26 120 07/22/25 18:26 98.3 130 19 144/100 100 98.3 Laboratory Tests Test 07/22/25 18:46 07/22/25 19:50 07/22/25 21:53 White Blood Count 16.6 10^3/uL (4.4-10.8) H Lactic Acid Level 3.1 mmol/L (0.4-2.0) *H 4.7 mmol/L (0.4-2.0) *H Medications Medications Dose Ordered Sig/Jessica Route Start Time Stop Time Status Last Admin Dose Admin Albuterol 2.5 mg ONCE ONCE NEB 07/22/25 19:15 07/22/25 19:16 DC 07/22/25 19:41 2.5 MG Budesonide 0.5 mg BID NEB 07/22/25 22:00 07/22/25 20:22 0.5 MG Cefepime HCl 50 ml @ 12.5 mls/hr ONCE ONCE IV 07/22/25 23:00 07/23/25 02:59 07/22/25 23:21 12.5 MLS/HR Ipratropium Gideon 0.5 mg ONCE ONCE NEB 07/22/25 19:15 07/22/25 19:16 DC 07/22/25 19:38 0.5 MG Methylprednisolone Sodium Succinate 250 mg ONCE ONCE IV 07/22/25 18:30 07/22/25 18:31 DC 07/22/25 18:32 250 MG Montelukast Sodium 10 mg HS PO 07/22/25 22:00 07/22/25 22:01 10 MG Oxycodone/ Acetaminophen 2 tab Q8HP PRN PO 07/22/25 22:15 07/23/25 00:18 2 TAB Potassium Bicarbonate 20 meq ONCE ONCE PO 07/22/25 20:45 07/22/25 20:56 DC 07/22/25 21:04 20 MEQ Sodium Chloride 1,800 ml @ 1,800 mls/hr ONCE ONCE IV 07/22/25 23:15 07/23/25 00:14 DC 07/22/25 23:22 1,800 MLS/HR Vancomycin HCl 250 ml @ 250 mls/hr ONCE ONCE IV 07/22/25 23:00 07/22/25 23:59 DC 07/22/25 00:00 250 MLS/HR Assessment/Plan Assessment/Plan Assessment Acute on chronic hypoxic respiratory failure Asthma Chronic pain syndrome Leukocytosis Early sepsis Plan Admit the patient to telemetry to the hospitalist Man masterss Resume home medications Continue treatment per orders. Plan discussed with: Patient My Orders Orders - DEANNE INFANTE AGACNP Procedure Category Date Status Time Methylprednisolone PHA 07/23/25 In Process Sod Succ (Solu Medrol 10:00 Montelukast Tablet PHA 07/22/25 In Process (Singulair Tablet) 22:00 Budesonide PHA 07/22/25 In Process (Inhalation) 22:00 Albuterol Medneb PHA 07/22/25 In Process (Ventolin Medneb) 19:30 Ipratropium Medneb PHA 07/22/25 In Process (Atrovent Medneb) 19:30 Basic Metabolic Panel LAB 07/23/25 Logged 04:00 Admit ADMIT 07/22/25 Transmitted 19:28 Temazepam (Restoril) PHA 07/22/25 In Process 19:30 Ondansetron Hcl PHA 07/22/25 In Process (Zofran) 19:30 Complete Blood Count LAB 07/23/25 Logged 04:00 Cardiac DIET 07/23/25 Transmitted Diet-2gna,Lofat,Lochol Breakfast Condition: Fair TARAN 07/22/25 In Process 19:28 Acetaminophen Tablet PHA 07/22/25 In Process (Tylenol Tablet) 19:30 Bedrest With Bathroom TARAN 07/22/25 In Process Privileg 19:28 Nitroglycerin [facility] 07/22/25 In Process Sublingual (Ntrostat 19:30 Morphine Sulfate [facility] 07/22/25 In Process Injection 19:30 Stat Ekg For Chest [facility] 07/22/25 In Process Pain 19:28 Notify Md Of Changes [facility] 07/22/25 In Process From Base 19:28 Ict Educator For [facility] 07/22/25 In Process 24 Hours 19:28 Emergency Dysrhythmia [facility] 07/22/25 In Process Protocol 19:28 Rhythm Strips Once [facility] 07/22/25 In Process Every Shift 19:28 Oxygen By Nasal RT 07/22/25 Transmitted Cannula 19:28 Oxycodone W/ Acet PHA 07/22/25 In Process 5/325mg Tab (Percocet 22:15 Ceftriaxone 1gm/50ml PHA 07/23/25 In Process (Rocephin) 09:00 Date of Service: Jul 22, 2025 Billing Provider: DEANNE INFANTE Common Visit Codes: [id number] INP/OBS CARE (HIGH) DEANNE INFANTE Jul 23, 2025 00:22
[2025-07-23 01:49] LABS: Lactic Acid w/Reflex 4.4 mmol/L (0.4-2.0)
[2025-07-23 03:16] LABS: Chloride 106 mmol/L (98-107); Potassium 4.2 mmol/L (3.5-5.1); Sodium 141 mmol/L (136-145)
[2025-07-23 03:17] LABS: Anion Gap 15 (5-15); Carbon Dioxide 20 mmol/L (20-31)
[2025-07-23 03:20] LABS: Calcium 8.3 mg/dL (8.7-10.4)
[2025-07-23 03:22] LABS: BUN/Creatinine Ratio 11.9 (10.0-20.0)
[2025-07-23 03:30] LABS: Blood Urea Nitrogen 7 mg/dL (9-23); Glucose 171 mg/dL (74-106)
[2025-07-23] MEDS: ALBUTEROL SULF 2.5 MG/0.5ML(0.5%) NEB SOLN NEB PRN (06:17)
[2025-07-23] MEDS: IPRATROPIUM BROM 0.5 MG/2.5ML INH SOL NEB PRN (06:17)
[2025-07-23 08:01] LABS: Hematocrit 36.7 % (36.0-46.0); Hemoglobin 12.0 g/dL (12.2-16.2); Mean Corpuscular Hemoglobin 28.0 pg (28.0-32.0); Mean Corpuscular Volume 85.6 fL (80.0-100.0); Nucleated Red Blood Cells % 0.0 %
[2025-07-23] MEDS: methylPREDNISolone SOD SUCC 40 MG/ML VL IV SCH ×2 (10:14→22:43)
[2025-07-23] MEDS ORDERED: GABAPENTIN 300 MG CAP PO PRN (12:15)
--- NOTE | 2025-07-23 15:02 | DVHPN2 ---
Subjective Patient continues to reporting having some shortness of breaths, with improvement from time of arrival. Reviewed: Care Plan, H&P, Labs, Medications Changes from previous H/P or p: No Changes General: Per HPI Objective Vitals Vital Signs Date Time Temp Pulse Resp B/P (MAP) Pulse Ox O2 Delivery O2 Flow Rate FiO2 07/23/25 14:00 127 24 99/52 (68) 96 07/23/25 12:59 Nasal Cannula* 2 28 07/23/25 08:00 97.7 97.7 Intake/Output Intake and Output 07/23/25 07:00 Intake Total 2077.5 ml Output Total 550 ml Balance 1527.5 ml Intake Oral 240 ml IV Total 1837.5 ml Output Urine Total 550 ml # Voids 1 General Appearance: Alert, Oriented X3, Cooperative, mild distress HEENT: Atraumatic, PERRLA Lungs: Clear to auscultation, Normal air movement Cardiovascular: Normal S1, Normal S2 Abdomen: Normal bowel sounds, Soft, No tenderness, No hepatospenomegaly Back: Flank Tenderness, Midline Tenderness Neuro: Normal gait, Normal speech Psych/Mental Status: Mental status NL, Mood NL Medications Current Medications Medications Dose Ordered Sig/Jessica Route Start Time Stop Time Status Last Admin Dose Admin Budesonide 0.5 mg BID NEB 07/22/25 22:00 07/23/25 06:17 0.5 MG Albuterol 2.5 mg Q6HPRN PRN NEB 07/22/25 19:30 07/23/25 12:58 2.5 MG Ipratropium [place] 0.5 mg Q6HPRN PRN NEB 07/22/25 19:30 07/23/25 12:58 0.5 MG Temazepam 15 mg QHSP PRN PO 07/22/25 19:30 Ondansetron HCl 4 mg Q4HP PRN IV 07/22/25 19:30 Acetaminophen 650 mg Q6HP PRN PO 07/22/25 19:30 Nitroglycerin 0.4 mg Q5MINP PRN SL 07/22/25 19:30 Morphine Sulfate 2 mg Q30M PRN IV 07/22/25 19:30 Ceftriaxone Sodium 50 ml @ 100 mls/hr DAILY@09 IV 07/23/25 09:00 07/23/25 09:21 100 MLS/HR Oxycodone/ Acetaminophen 2 tab Q4HP PRN PO 07/23/25 12:15 Cyclobenzaprine HCl 5 mg BID PO 07/23/25 22:00 Gabapentin 300 mg BID PRN PO 07/23/25 12:15 Montelukast Sodium 10 mg HS PO 07/24/25 22:00 Ergocalciferol 50,000 unit QWEEKLY PO 07/29/25 10:00 Ferrous Sulfate 325 mg DAILY PO 07/24/25 10:00 Docusate Sodium 100 mg BID PO 07/23/25 22:00 UNV Methylprednisolone Sodium Succinate 40 mg BID IV 07/23/25 22:00 UNV Laboratory Results Laboratory Tests 07/23/25 02:51 07/23/25 07:47 Chemistry Test 07/22/25 18:46 07/23/25 02:51 Calcium Level 9.3 mg/dL (8.7-10.4) 8.3 mg/dL (8.7-10.4) L Coagulation Test 07/22/25 23:10 Prothrombin Time 10.4 sec (9.3-11.8) Prothrombin Time INR 0.98 (0.9-1.15) Activated Partial Thromboplast Time 26.8 SEC (24.5-34.5) Urinalysis Test 07/22/25 22:52 Urine Color Colorless (Yellow) Urine Clarity Clear (Clear) Urine pH 6.0 (5.0-9.0) Urine Specific [place] 1.009 (1.001-1.035) Urine Protein Negative (Negative) Urine Ketones 1+ (Negative) H Urine Blood Negative /uL (Negative) Urine Nitrite Negative (Negative) Urine Bilirubin Negative (Negative) Urine Urobilinogen Normal mg/dL (Negative) Urine Leukocyte Esterase Negative /uL (Negative) Urine RBC None seen /hpf (0 - 4) Urine Microscopic WBC < 1 /HPF (0-5) Urine Squamous Epithelial Cells Few /hpf (<5) Urine Bacteria None seen /hpf (None Seen) Urine Glucose Normal mg/dL (Normal) Blood Gas Results Test 07/22/25 19:30 Arterial Blood pH 7.503 (7.350-7.450) FiO2 % 50.0 Labs and/or images reviewed: Labs reviewed by me, Image(s) reviewed by me Assessment/Plan Assessment/Plan Impression: -acute on chronic hypoxic respiratory failure -leukocytosis, probable sirs response -probable COPD exacerbation -tracheal dysplasia -history of spina bifida -obesity Plan: -continue bronchodilators -continue IV steroids, increase to Solu-Medrol 40 mg b.i.d. -continue home pain management regimen -O2 supplementation to keep saturation greater than 92% Total time spent with patient discussing and formulating plan of care: 35 minutes. This medical document was created using an electronic medical record system with [employer] dictation system. Although this document has been carefully reviewed, there may still be some phonetic and typographical errors. These areas are purely typographical due to imperfections of the software programs, and do not reflect any compromise in the patient's medical care. Plan discussed with: Patient, Other (RN) My Orders Orders - TINO SCHULTE NP Procedure Category Date Status Time Oxycodone W/ Acet PHA 07/23/25 In Process 5/325mg Tab (Percocet 12:15 Cyclobenzaprine PHA 07/23/25 In Process Tablet (Flexeril 22:00 Gabapentin Capsule PHA 07/23/25 In Process (Neurontin Capsule) 12:15 Montelukast Tablet PHA 07/24/25 In Process (Singulair Tablet) 22:00 Ferrous Sulfate Tablet PHA 07/24/25 In Process 10:00 Comprehensive LAB 07/24/25 Verified Metabolic Panel 04:00 Ergocalciferol PHA 07/29/25 In Process (Vitamin D 50,000 10:00 Docusate Sodium PHA 07/23/25 Logged Capsule (Colace 22:00 Methylprednisolone PHA 07/23/25 Logged Sod Succ (Solu Medrol 22:00 Date of Service: Jul 23, 2025 Billing Provider: TINO SCHULTE NP Common Visit Codes: [id number] INP/OBS CARE(HIGH) TINO SCHULTE NP Jul 23, 2025 15:02
[2025-07-23] MEDS: MAGNESIUM SULFATE 1GM/100ML 100 ML IV ONE ×2 (17:30→17:43)
[2025-07-23] MEDS: DOCUSATE SOD 100 MG CAP PO SCH (22:42)
[2025-07-23] MEDS: CYCLOBENZAPRINE HCL 10 MG TAB PO SCH (22:44)
[2025-07-24] VITALS (9 sets, daily range): BP systolic 96–126; BP diastolic 62–86; PULSE 56–99; RESP 16–20; TEMP 97.5–97.9; O2SAT 96–100
[2025-07-24] MEDS: TEMAZEPAM 15 MG CAP PO PRN (02:13)
[2025-07-24 06:53] LABS: Alanine Aminotransferase 15 U/L (7-40); Albumin 4.4 g/dL (3.2-4.8); Alkaline Phosphatase 86 U/L (46-116); Anion Gap 9 (5-15); BUN/Creatinine Ratio 12.2 (10.0-20.0); Calcium 9.1 mg/dL (8.7-10.4); Carbon Dioxide 27 mmol/L (20-31); Chloride 106 mmol/L (98-107); Potassium 4.2 mmol/L (3.5-5.1); Sodium 142 mmol/L (136-145); Total Protein 6.7 g/dL (5.7-8.2)
[2025-07-24 06:55] LABS: Bilirubin, Total 0.2 mg/dL (0.2-1.0); Blood Urea Nitrogen 9 mg/dL (9-23); Glucose 145 mg/dL (74-106)
[2025-07-24] MEDS ORDERED: DOCUSATE SOD 100 MG CAP PO SCH (10:00)
[2025-07-24 10:30] LABS: Hepatitis B Surface Antigen Negative (Negative)
[2025-07-24] MEDS: FERROUS SULFATE 325mg EC TAB PO SCH (10:36)
[2025-07-24 10:56] LABS: Hepatitis C Antibody Negative (Negative)
[2025-07-24] MEDS ORDERED: DOCU-94 PO (11:05)
[2025-07-24] MEDS ORDERED: FLUT1AER17 IN (11:05)
--- NOTE | 2025-07-24 11:10 | DVHDS2 ---
Discharge Summary Date of Admission Jul 22, 2025 at 19:28 Date of Discharge: Jul 24, 2025 Admitting Diagnosis Acute on chronic respiratory failure Labs/Diagnostic Data: Laboratory Results Test 07/24/25 02:50 07/23/25 07:47 07/23/25 02:51 07/22/25 23:10 Sodium Level 142 mmol/L (136-145) Potassium Level 4.2 mmol/L (3.5-5.1) Chloride Level 106 mmol/L (98-107) Carbon Dioxide Level 27 mmol/L (20-31) Anion Gap 9 (5-15) Blood Urea Nitrogen 9 mg/dL (9-23) Creatinine 0.74 mg/dL (0.550-1.02) Glomerular Filtration Rate Calc 103 mL/min (>90) BUN/Creatinine Ratio 12.2 (10.0-20.0) Serum Glucose 145 mg/dL (74-106) Calcium Level 9.1 mg/dL (8.7-10.4) Total Bilirubin 0.2 mg/dL (0.2-1.0) Aspartate Amino Transferase (AST) 11 U/L (13-40) Alanine Aminotransferase (ALT) 15 U/L (7-40) Alkaline Phosphatase 86 U/L (46-116) Total Protein 6.7 g/dL (5.7-8.2) Albumin 4.4 g/dL (3.2-4.8) Hepatitis B Surface Antigen Negative (Negative) Hepatitis C Antibody Negative (Negative) White Blood Count 6.8 10^3/uL (4.4-10.8) Red Blood Count 4.29 10^6/uL (4.0-5.20) Hemoglobin 12.0 g/dL (12.2-16.2) Hematocrit 36.7 % (36.0-46.0) Mean Corpuscular Volume 85.6 fL (80.0-100.0) Mean Corpuscular Hemoglobin 28.0 pg (28.0-32.0) Mean Corpuscular Hemoglobin Concent 32.7 g/dL (32.0-36.0) Red Cell Distribution Width 14.7 % (11.8-14.3) Platelet Count 276 10^3/uL (140-450) Mean Platelet Volume 7.7 fL (6.9-10.8) Neutrophils (%) (Auto) 86.6 % (37.0-80.0) Lymphocytes (%) (Auto) 12.4 % (10.0-50.0) Monocytes (%) (Auto) 0.9 % (0.0-12.0) Eosinophils (%) (Auto) 0.0 % (0.0-7.0) Basophils (%) (Auto) 0.1 % (0.0-2.0) Neutrophils # (Auto) 5.9 10 ^3/uL (1.6-8.6) Lymphocytes # (Auto) 0.8 10 ^3/uL (0.4-5.4) Monocytes # (Auto) 0.1 10 ^3/uL (0-1.3) Eosinophils # (Auto) 0 10 ^3/uL (0-0.8) Basophils # (Auto) 0 10 ^3/uL (0-0.2) Nucleated Red Blood Cells 0.0 % Lactic Acid Level 3.6 mmol/L (0.4-2.0) Prothrombin Time 10.4 sec (9.3-11.8) Prothrombin Time INR 0.98 (0.9-1.15) Activated Partial Thromboplast Time 26.8 SEC (24.5-34.5) Test 07/22/25 22:52 07/22/25 21:53 07/22/25 19:30 Urine Color Colorless (Yellow) Urine Clarity Clear (Clear) Urine pH 6.0 (5.0-9.0) Urine Specific [place] 1.009 (1.001-1.035) Urine Protein Negative (Negative) Urine Ketones 1+ (Negative) Urine Blood Negative /uL (Negative) Urine Nitrite Negative (Negative) Urine Bilirubin Negative (Negative) Urine Urobilinogen Normal mg/dL (Negative) Urine Leukocyte Esterase Negative /uL (Negative) Urine RBC None seen /hpf (0 - 4) Urine Microscopic WBC < 1 /HPF (0-5) Urine Squamous Epithelial Cells Few /hpf (<5) Urine Bacteria None seen /hpf (None Seen) Urine Glucose Normal mg/dL (Normal) Troponin I High Sensitivity < 3 ng/L (</=34) Blood Gas Specimen Type Arterial Blood Gas Sample Site Left radial Blood Gas Patient Temperature 37.0 Arterial Blood Date Drawn [id number] Arterial Blood pH 7.503 (7.350-7.450) Arterial Blood Partial Pressure CO2 29.0 mmHg (32.0-45.0) Arterial Blood Partial Pressure O2 240.0 mmHg (83.0-108.0) Arterial Blood HCO3 22.3 mmol/L (21.0-28.0) Arterial Blood Oxygen Saturation 99.8 % (94.0-98.0) Arterial Blood Base Excess 0.2 mmol/L (-2.0-3.0) Arterial Blood Oxyhemoglobin 98.3 % (94.0-98.0) Arterial Blood Carboxyhemoglobin 0.9 % (0.5-1.5) Arterial Blood Methemoglobin 0.6 % (0.0-1.5) Arterial Blood Deoxyhemoglobin 0.2 % (0.0-5.0) Giacomo Test Yes Blood Gas Total Hemoglobin 13.70 g/dL (12.0-16.0) Blood Gas Set Respiration Rate 12.0 Blood Gas Modality Mask - bipap FiO2 % 50.0 Blood Gas EPAP 5 Blood Gas IPAP 12 Other Laboratory Tests 07/24/25 02:50 07/23/25 07:47 Brief Hx & Hospital Course: HPI Comments HPI: This is a 44 year old female BIBA presenting to the ED with chief complaint of SOB. EMS reports patient started to experience SOB with associated throat closure at about 1730 today. EMS relays that prior to arriving on scene, patient self-administered an Epi-Pen. EMS states that the patient had an O2 saturation of 92% on RA, improving to 100% when placed on CPAP. EMS notes they provided 0.3mg of Epinephrine, 2g of Magnesium, 50mg of Benadryl IM, and 1 DuoNeb breathing treatment en route to the ED. Patient notes she has history of intubations and laryngospasms. Patient denies any chest pain, dizziness, fever, chills, or headache. Course of hospitalization: Patient was found to be in severe respiratory distress and placed on BiPAP. Respiratory status improved dramatically with IV steroids, Pulmicort, bronchodilators. White blood cell count also returned back to normal. Currently patient is on room air in his has been ambulating without any acute dyspnea. Patient will be discharged home and is instructed to follow up with her PCP in 1-2 weeks, the discharge Clinic within one week, as well as recommended to have a referral to an allergen specialist as well as her ENT doctor given her repeated admissions. Patient verbalized understanding and is agreeable with the discharge plan. All questions answered. Physical examination General: Alert and Oriented x3. No acute distress. Well-nourished. Obese Eyes: EOMI. Anicteric. HENT: Moist mucous membranes. Lungs: Clear to auscultation bilaterally. No accessory muscle use. Cardiovascular: Regular rate and rhythm. No murmur. No JVD. Abdomen: Soft, non-tender and non-distended. No palpable masses. Extremities: No edema. Non-tender. Skin: No rashes or lesions. Warm. Neurologic: No focal neurological deficits. CN II-XII grossly intact, but not individually tested. Psychiatric: Cooperative. Appropriate mood and affect. Total time spent with patient discussing and formulating plan of care: 35 minutes. This medical document was created using an electronic medical record system with [employer] system. Although this document has been carefully reviewed, there may still be some phonetic and typographical errors. These areas are purely typographical due to imperfections of the software programs, and do not reflect any compromise in the patient's medical care. Condition at Discharge: Fair Final Diagnosis/Problems List -acute on chronic hypoxic respiratory failure -leukocytosis, probable sirs response -probable COPD exacerbation -tracheal dysplasia -history of spina bifida -obesity Discharge Disposition: Home Discharge Instruct/Medications Diet: Regular Activity: No Restrictions, As Tolerated Follow Up/Referral: Follow up with PCP, Dr. Tran in 1 week Medications: Continue all previous home medications. Refill be provided for Trelegy and Colace Scheduled Budesonide-Formoterol Fumarate (Budesonide/Formoterol Fum 160-4.5 Mcg/Act), 1 AER IN BID Cholecalciferol (Vitamin D3), 5,000 UNIT OR QWEEKLY, (Reported) Cyclobenzaprine Hcl (Cyclobenzaprine Hcl), 5 MG PO BID, (Reported) Docusate Sodium (Colace), 100 MG PO DAILY, (Reported) Docusate Sodium (Colace), 1 CAP PO BID Ferrous Sulfate (Ferosul), 325 PO DAILY, (Reported) Lhdxgwundue-Kxtvhnerzcmm-Wygql (Trelegy Ellipta 200-62.5-25 Mcg/INH), 1 AER IN DAILY Montelukast Sodium (Montelukast Sodium), 1 TAB PO DAILY, (Reported) Prednisone (Prednisone), 40 MG PO DAILY Scheduled PRN Albuterol Sulfate (Ventolin), 2.5 MG NEB Q4HPRN PRN Gabapentin (Gabapentin), 300 MG PO BID PRN for NEUROPATHRY LEG PAIN, (Reported) Oxycodone W/ Acetaminophen (Apap/Oxycodone), 1 TAB PO QID PRN for BACK PAIN,, (Reported) 36 Discharge Statement: "Patient was advised to return to the ER or call 911 if any headaches, dizziness, shortness of breath, chest pain, abdominal pain, bleeding, fevers, or worsening of medical condition. Patient was counseled about treatment plan, medications, possible side effects, patientverbalized understanding. All questions were answered to the best of my ability. This discharge took greater then 30 minutes in planning, reviewing documentation, counseling the patient, and discussing with other team members." ASSESSMENT ASSESSMENT Assessment Acute on chronic hypoxic respiratory failure Date of Service: Jul 24, 2025 Billing Provider: TINO SCHULTE NP Common Visit Codes: 29649-FNF/OBS DISCH DAY >30min TINO SCHULTE NP Jul 24, 2025 11:10
[2025-07-24] MEDS ORDERED: MONTELUKAST SODIUM 10 MG TAB PO SCH (22:00)
[2025-07-29] MEDS ORDERED: ERGOCALCIFEROL 50,000 UNIT(1.25MG) CAP PO SCH (10:00)
== END 2025-07-24 15:03 | disposition home or self-care (01) | DRG 133 ==
LOC: ER 18:21 → EDBD 18:21 → OVERFLOW 19:28 → TELE-EAST 07-23 21:46
PROVIDERS: ADMIT Nurse Practitioner Acute Care; ATTEND Nurse Practitioner Acute Care
PROC: 5A09357 Assistance with Respiratory Ventilation, Less than 24 Consecutive Hours, Continuous Positive Airway Pressure (ICD-10-PCS; principal; 2025-07-22)
PROC: 5A09357 Assistance with Respiratory Ventilation, Less than 24 Consecutive Hours, Continuous Positive Airway Pressure (ICD-10-PCS; 2025-07-23)
DX: J96.21 Acute and chronic respiratory failure with hypoxia (principal); R65.11 Systemic inflammatory response syndrome (SIRS) of non-infectious origin with acute organ dysfunction; E66.9 Obesity, unspecified; J44.1 Chronic obstructive pulmonary disease with (acute) exacerbation; G89.4 Chronic pain syndrome; Z68.30 Body mass index [BMI] 30.0-30.9, adult; Q05.9 Spina bifida, unspecified; Z88.6 Allergy status to analgesic agent; Z90.49 Acquired absence of other specified parts of digestive tract
CPT/HCPCS: 36415; 36600; 71045; 80048; 80053; 81001; 82805; 83605; 84484; 85025; 85610; 85730; 86803; 87040; 87081; 87340; 93005; 94640; 94660; 99291; G0378

== ENCOUNTER 2025-08-08 13:58 | Emergency (ER) | payer MEDICAID ==
[~2025-08-08] VITALS: Ht 170.2 cm; Wt 86.0 kg
[~2025-08-08 13:58] MED LIST changes: +FLUT1AER17 IN
--- NOTE | 2025-08-08 14:51 | ED.PDOC ---
GI ASSESSMENT HPI Comments 44 y/o F, with PMHx of anxiety, asthma, and COPD presents to the ED for CC of constipation. Patient states, she has been unable to have a bowel movement in x7days. Patient reports, to have associated symptoms of nausea/vomiting and has been unable to tolerate foods or liquids. Patient endorses, trying over the counter medications for constipation with no relief. Patient denies fever, chills, diarrhea, or palpitations. Chief Complaint: Constipation Time Seen by MD: 14:45 Primary Care Provider: UNKNOWN Reviewed Notes: Nurses Notes, Medications, Allergies Allergies: Coded Allergies: Ibuprofen (Verified Allergy, Unknown, 04/25/23) Levothyroxine (Verified Allergy, Unknown, 04/25/23) Home Meds Active Scripts Docusate Sodium (Colace) 100 Mg Cap, 1 CAP PO BID for 30 Days, #60 CAP Prov:TINO SCHULTE MATZO FORMING MACHINE OPERATOR 07/24/25 Gpiulsanfmj-Etcchilmvgto-Ghmst (Trelegy Ellipta 200-62.5-25 Mcg/INH) 1 Aer Aer, 1 AER IN DAILY for 30 Days, #1 AER Prov:TINO SCHULTE MATZO FORMING MACHINE OPERATOR 07/24/25 Prednisone (Prednisone) 20 Mg Tab, 40 MG PO DAILY for 5 Days, #10 MG 0 Refills Prov:EMILY FULTON MD 07/06/25 Budesonide-Formoterol Fumarate (Budesonide/Formoterol Fum 160-4.5 Mcg/Act) 1 Aer Aer, 1 AER IN BID for 30 Days, #1 AER 1 Refill Prov:EMILY FULTON MD 07/06/25 Albuterol Sulfate (Ventolin) 2.5 Mg/0.5 Ml Nb, 2.5 MG NEB Q4HPRN PRN for 30 Days, #30 INH Prov:MAXIME GRIDER RESIDENT 01/11/24 Reported Medications Montelukast Sodium (MONTELUKAST SODIUM) 10 Mg Tab, 1 TAB PO DAILY 08/02/24 Docusate Sodium (Colace) 100 Mg Cap, 100 MG PO DAILY for CONSTIPATION, CAP 01/08/24 Cholecalciferol (VITAMIN D3) 2,000 Unit Tab, 5000 UNIT OR QWEEKLY for LOW VITAMIN D, TAB 01/08/24 Cyclobenzaprine Hcl (Cyclobenzaprine Hcl) 10 Mg Tab, 5 MG PO BID for MUSCLE RELAXANT for 30 Days, MG 11/30/23 Oxycodone W/ Acetaminophen (Apap/Oxycodone) 1 Tab Tab, 1 TAB PO QID PRN for BACK PAIN,, #90 TAB 10/325 08/27/23 Ferrous Sulfate (Ferosul) 325 Mg Tab, 325 PO DAILY for ANEMIA 03/03/23 Gabapentin (Gabapentin) 300 Mg Cap, 300 MG PO BID PRN for NEUROPATHRY LEG PAIN 03/02/23 Information Source: Patient Mode of Arrival: Ambulatory Timing: Days Duration: Since onset Prehospital treatment: None Stool: Impaction Severity: Moderate Recent: None Recent Hx of: None Pain Location: Diffuse Modifying Factors: Nothing Associated sign and symptoms: Nausea, Vomiting, Abdominal Pain Past Medical History PAST MEDICAL HISTORY: Anemia, Anxiety, Asthma, COPD, Thyroid Surgical History: Appendectomy, Cholecystectomy, , Tonsillectomy [employer] History: Denies all [employer] Hx Family History Family History: Reviewed,noncontributory to illness, Unknown Social History Smoker: Non-Smoker Alcohol: Denies ETOH Use Drugs: Denies Drug Use Lives In: Home Constitutional: denies: chills, diaphoresis, fatigue, fever, malaise, sweats, weakness, others EENTM: denies: blurred vision, double vision, ear bleeding, ear discharge, ear drainage, ear pain, ear ringing, eye pain, eye redness, hearing loss, mouth pain, mouth swelling, nasal discharge, nose bleeding, nose congestion, nose pain, photophobia, tearing, throat pain, throat swelling, voice changes, others Respiratory: denies: cough, hemoptysis, orthopnea, SOB at rest, shortness of breath, SOB with excertion, stridor, wheezing, others Cardiovascular: denies: chest pain, dizzy spells, diaphoresis, Dyspnea on exertion, edema, irregular heart beat, left arm pain, lightheadedness, palpitations, PND, syncope, others Gastrointestinal: reports: abdomen distended, abdominal pain, nausea, vomiting; denies: blood streaked bowels, constipated, diarrhea, dysphagia, difficulty swallowing, hematemesis, melena, poor appetite, poor fluid intake, rectal bleeding, rectal pain, others Genitourinary: denies: abnormal vagina bleeding, burning, dyspareunia, dysuria, flank pain, frequency, hematuria, incontinence, pain, , vagina discharge, urgency, others Neurological: denies: dizziness, fainting, headache, left sided numbness, left sided weakness, numbness, paresthesia, pre-existing deficit, right sided numbness, right sided weakness, seizure, speech problems, tingling, tremors, weakness, others Musculoskeletal: denies: back pain, gout, joint pain, joint swelling, muscle pain, muscle stiffness, neck pain, others Integumetry: denies: bruises, change in color, change in hair/nails, dryness, laceration, lesions, lumps, rash, wounds, others Allergic/Immunocompromised: denies: Difficulty Healing, Frequent Infections, Hi ves, Itching, others Hematologic/Lymphatic: denies: anemia, blood clots, easy bleeding, easy bruising, swollen glands, others Endocrine: denies: excessive hunger, excessive sweating, excessive thirst, excessive urination, flushing, intolerance to cold, intolerance to heat, unexplained weight gain, unexplained weight loss, others Psychiatric: denies: anxiety, bipolar disorder, depression, hopeless, panic disorder, schizophrenia, sleepless, suicidal, others All Other Systems: Reviewed and Negative Physical Exam General Appearance: Moderate Distress HEENT: Normal ENT Inspection, Pharynx Normal, TMs Normal Neck: Full Range of Motion, Non-Tender, Normal, Normal Inspection Respiratory: Chest Non-Tender, Lungs Clear, No Accessory Muscle Use, No Respiratory Distress, Normal Breath Sounds Cardiovascular: No Edema, No JVD, No Murmur, No Gallop, Normal Peripheral Pulses, Regular Rate/Rhythm Breast Exam: Deferred Gastrointestinal: No Organomegaly, Non Tender, No Pulsatile Mass, Normal Bowel Sounds, Soft Genitalia: Deferred Pelvic: Deferred Rectal: Deferred Extremities: No calf tenderness, Normal capillary refill, Normal inspection, Normal range of motion, Non-tender, No pedal edema Musculoskeletal : Apperance: Normal Neurologic: Alert, broadcast field supervisor II-XII nml as Tested, No Motor Deficits, Normal Affect, Normal Mood, No Sensory Deficits Cerebellar Function: Normal Reflexes: Normal Skin: Dry, Normal Color, Warm Peripheral Pulses: 3+ Radial (R), 3+ Radial (L) Lymphatic: No Adenopathy Was a procedure done? Was a procedure done?: No GI differential Dx Differential Diagnosis: Bowel Obstruction, Cholangitis, Constipation, Diverticular disease, Esophagitis, Gastritis/PUD, Gastroenteritis X-Ray, Labs, Meds, VS Vital Signs Date Time Temp Pulse Resp B/P (MAP) Pulse Ox O2 Delivery O2 Flow Rate FiO2 08/08/25 15:33 98.1 89 16 136/90 (105) 98 98.1 08/08/25 14:04 98.0 98 20 137/93 97 98.0 Patient alert. Vitals stable. Complaining of not having a bowel movement. Answering questions. Saturation pristine on room air. Abdomen is soft nontender. Was given Fleet. Was given Colace. Explained to the patient that she will need to take lot of fluids along with f iber when she is taking narcotics. No acute process. Was told to follow up with her primary care physician. Was told to come back if there is any problem. [place] [id number] Ph: [phone] DIAGNOSTIC IMAGING Diagnostic Imaging Report : [id number] Signed PATIENT: ALMA WAGGONER MACCT: [id number] UNIT: [id number] : 1980 LOC: ER ROOM / BED: / AGE / SEX: 44 / F ADM STATUS: REG ER SERVICE 46 ORDERING PHYSICIAN: AMAN CARRINGTON MD PROCEDURE(s): KUB - KUB ABDOMEN SINGLE VIEW REASON: constipation ORDER NUMBER(s): [id number], ACCESSION NUMBER(s): [id number] EXAM: XY KUB ABDOMEN SINGLE VIEW INDICATION: constipation COMPARISON: US ABDOMEN LIMITED on DOS: 05/16/23 TECHNIQUE: 2 radiographic views of the abdomen. FINDINGS: Nonspecific bowel-gas pattern. Multiple air-fluid levels are present on upright view. There is no definite evidence for pneumoperitoneum. No abnormal calcifications noted. IMPRESSION: Nonspecific bowel-gas pattern. ATED BY: ANANT MCKEON MD DICTATED DATE/TIME: 08/08/25 152 SIGNED BY: ANANT MCKEON MD SIGNED DATE/TIME: 08/08/258 CC: Time of 1ST Reevaluation: 15:15 Reevaluation 1ST: Unchanged Patient Education/Counseling: Diagnosis, Treatment Family Education/Counseling: No Family Present SEPSIS Sepsis Screen Date sepsis recognized/suspect: Aug 08, 2025 Time Sepsis recognized/suspect: 1406 Recent Procedure: No On Antibiotic Therapy: No Respiratory Rate >20: No Heart Rate >90: Yes Temp<36 C (96.8 F) or >38.3 C: No SBP <90 or MAP <65 mmHG: No New Acute Mental Status Change: No Is the patient on CPAP, BIPAP,: No Physician Orders Kub Abdomen Single View (08/08/25 14:47) Vital Signs Date Time Temp Pulse Resp B/P (MAP) Pulse Ox O2 Delivery O2 Flow Rate FiO2 08/08/25 15:33 98.1 89 16 136/90 (105) 98 98.1 08/08/25 14:04 98.0 98 20 137/93 97 98.0 Departure 1 Departure Time of Disposition: 15:27 Impression: Primary Impression: Constipation Qualified Codes: K59.01 - Slow transit constipation Disposition: HOME / SELF CARE / HOMELESS Condition: Good Discharged With: Self Critical Care Note Critical Care Time?: No Stability Stability form required: No Heart Score Heart Score: Heart Score Response (Comments) Value History N/A 0 EKG N/A 0 Age N/A 0 Risk Factors N/A 0 Troponin N/A 0 Total 0 I personally scribed for AMAN CARRINGTON MD ([email or web address]) on 08/08/25 at 14:51. Electronically submitted by Talisha Ryan ([email or web address]). I personally scribed for AMAN CARRINGTON MD ([email or web address]) on 08/08/25 at 15:37. Electronically submitted by Talisha Ryan [email or web address]). AMAN CARRINGTON MD Aug 08, 2025 14:51
--- NOTE | 2025-08-08 15:30 | DVH ---
EXAM: XY KUB ABDOMEN SINGLE VIEW INDICATION: constipation COMPARISON: US ABDOMEN LIMITED on DOS: 05/16/23 TECHNIQUE: 2 radiographic views of the abdomen. FINDINGS: Nonspecific bowel-gas pattern. Multiple air-fluid levels are present on upright view. There is no definite evidence for pneumoperitoneum. No abnormal calcifications noted. IMPRESSION: Nonspecific bowel-gas pattern.
[2025-08-08 17:40] VITALS: BP 118/86; PULSE 98; RESP 20; TEMP 98.2; O2SAT 100
[2025-08-08] MEDS: FLEET ENEMA(ADULT) 135 ML PR ONE (17:51)
[2025-08-08] MEDS: DOCUSATE SOD 100 MG CAP PO ONE (17:51)
== END 2025-08-08 17:59 | disposition home or self-care (01) ==
LOC: ER 13:58
DX: K59.00 Constipation, unspecified (principal); J44.89 Other specified chronic obstructive pulmonary disease; Z90.49 Acquired absence of other specified parts of digestive tract; Z88.6 Allergy status to analgesic agent; Z79.899 Other long term (current) drug therapy
CPT/HCPCS: 74018